=== PATIENT | female | born 1945 | race Two or more races ===

== ENCOUNTER 2016-06-29 16:41 | Inpatient (IN) | payer MEDICARE ==
[~2016-06-29] VITALS: Ht 149.9 cm; Wt 43.8 kg
--- NOTE | 2016-06-29 16:47 | ED.ADGEN ---
Past History Past Medical History: Dementia, Hypertension, Other Past Surgical History: Other Adult General Chief Complaint Chief Complaint ". I don't know why I am here.." HPI HPI Patient is a 70 year old female who presents with hx of increased confusion and mental status change. Pt. family members at bed side advised she had marked decreased mental abilities. Very confused. Pt. was taken to her Dr. Katie Mcknight. who then sent her to [facility] to be admitted to [facility]. However no pre -calls or arrangement made for acceptance. Pt. is obviously confused. Pt. did not know current season. Pt. did not know year or date or month. Pt. only recognized one family member in the room her daughter in law, but did not know her name, One friend who she is known for over 60 years she did not recognize. Pt. has hx of hypertension. 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 Review of Systems Review of Systems Pt. has no complaints, just angry that she is to be admitted for mental status change Constitutional: Denies fever or chills [] Eyes: Denies change in visual acuity, redness, or eye pain [] HENT: Denies nasal congestion or sore throat [] Respiratory: Denies cough or shortness of breath [] Cardiovascular: No additional information not addressed in HPI [] GI: Denies abdominal pain, nausea, vomiting, bloody stools or diarrhea [] : Denies dysuria or hematuria [] Musculoskeletal: Patient does have complaints of chronic low back pain and left hip pain Integument: Denies rash or skin lesions [] Neurologic: Denies headache, focal weakness or sensory changes [] Endocrine: Denies polyuria or polydipsia [] Family History Family History Noncontributory Current Medications Current Medications Current Medications Medications (Trade) Dose Ordered Sig/Justo Start Time Stop Time Status Last Admin Dose Admin Ceftriaxone Sodium/Sodium Chloride (Rocephin/Iv Sodium Chloride 0.9% 50ml) 50 ml @ 100 mls/hr 1X ONCE 06/29/16 19:45 06/29/16 20:14 DC 06/29/16 23:14 100 MLS/HR Diphenhydramine HCl (Benadryl) 50 mg 1X ONCE 06/29/16 18:00 06/29/16 18:01 DC 06/29/16 18:00 50 MG Haloperidol Lactate (Haldol) 5 mg 1X ONCE 06/29/16 18:00 06/29/16 18:01 DC 06/29/16 18:00 5 MG Haloperidol Lactate 5 mg 5 mg 1X ONCE 06/29/16 17:15 06/29/16 17:16 UNV Lactated Ringer's (Iv Lactated Ringers) 1,000 ml @ 100 mls/hr Q10H 06/29/16 19:45 06/29/16 21:27 100 MLS/HR Lorazepam (Ativan) 2 mg 1X ONCE 06/29/16 18:00 06/29/16 18:01 DC 06/29/16 18:00 1 MG Ondansetron HCl 4 mg 4 mg PRN Q4HRS PRN 06/29/16 19:45 06/30/16 19:44 Allergies Allergies Allergies Coded Allergies Type Severity Reaction Last Updated Verified No Known Drug Allergies 06/29/16 No Physical Exam Physical Exam Constitutional: in acute emotional distress,very confused. Patient somewhat and has stooled on herself and clothes. HENT: Normocephalic, atraumatic, bilateral external ears normal, oropharynx moist, no oral exudates, nose normal. Scar. Eyes: PERRLA, EOMI, conjunctiva normal, no discharge. Glasses Neck: Normal range of motion, no tenderness, supple, no stridor. [] Cardiovascular:Heart rate regular rhythm, no murmur, PMI to the left Lungs & Thorax: Bilateral breath sounds clear to auscultation [] Abdomen: Bowel sounds normal, soft, no tenderness, no masses, no pulsatile masses. Old scar. Skin: Warm, dry, no erythema, no rash. [] Back: No tenderness, no CVA tenderness. Some lumbar sacral tenderness Extremities: No tenderness, no cyanosis, no clubbing, ROM intact, no edema. Left eye and hip scar. Arthritic changes Neurologic: Alert and oriented her name only, no gross motor function deficits, no gross sensory function deficits, Psychologic: Affect agitated and angry, judgement- obvious poor insight, obvious memory deficits, Current Patient Data Vital Signs Vital Signs Date Time Temp Pulse Resp B/P Pulse Ox O2 Delivery O2 Flow Rate FiO2 06/29/16 19:00 67 18 126/86 99 Room Air 06/29/16 16:41 98.2 Lab Results Laboratory Tests Test 06/29/16 18:10 06/29/16 18:20 06/29/16 19:23 White Blood Count 13.8x10^3/uL (4.0-11.0) H Red Blood Count 4.36x10^6/uL (3.50-5.40) Hemoglobin 13.2g/dL (12.0-15.5) Hematocrit 40.0% (36.0-47.0) Mean Corpuscular Volume 92fL (79-100) Mean Corpuscular Hemoglobin 30pg (25-35) Mean Corpuscular Hemoglobin Concent 33g/dL (31-37) Red Cell Distribution Width 15.0% (11.5-14.5) H Platelet Count 389x10^3/uL (140-400) Neutrophils (%) (Auto) 62% (31-73) Lymphocytes (%) (Auto) 29% (24-48) Monocytes (%) (Auto) 8% (0-9) Eosinophils (%) (Auto) 1% (0-3) Basophils (%) (Auto) 1% (0-3) Neutrophils # (Auto) 8.6x10^3uL (1.8-7.7) H Lymphocytes # (Auto) 3.9x10^3/uL (1.0-4.8) Monocytes # (Auto) 1.1x10^3/uL (0.0-1.1) Eosinophils # (Auto) 0.1x10^3/uL (0.0-0.7) Basophils # (Auto) 0.1x10^3/uL (0.0-0.2) Sodium Level 148mmol/L (136-145) H Potassium Level 3.2mmol/L (3.5-5.1) L Chloride Level 110mmol/L (98-107) H Carbon Dioxide Level 29mmol/L (21-32) Anion Gap 9 (6-14) Blood Urea Nitrogen 10mg/dL (7-20) Creatinine 0.8mg/dL (0.6-1.0) Estimated GFR (Cockcroft-Gault) 70.7 Glucose Level 85mg/dL (70-99) Calcium Level 8.9mg/dL (8.5-10.1) Magnesium Level 2.1mg/dL (1.8-2.4) Total Bilirubin 0.3mg/dL (0.2-1.0) Direct Bilirubin 0.1mg/dL (0.0-0.2) Aspartate Amino Transferase (AST) 14U/L (15-37) L Alanine Aminotransferase (ALT) 16U/L (14-59) Alkaline Phosphatase 97U/L (46-116) Creatine Kinase 143U/L (26-192) Creatine Kinase MB (Mass) 2.1ng/mL (0.0-3.6) Creatine Kinase MB Relative Index 1.5% (0-4) Troponin I Quantitative < 0.017ng/mL (0-0.055) HI-Ocg-G-Type Natriuretic Peptide 616pg/mL (0-124) H Total Protein 7.7g/dL (6.4-8.2) Albumin 3.9g/dL (3.4-5.0) Lipase 114U/L (73-393) Urine Collection Type Unknown Urine Color Yellow Urine Clarity Cloudy Urine pH 5.5 Urine Specific [place] >=1.030 Urine Protein Trace (NEG-TRACE) Urine Glucose (UA) Negmg/dL (NEG) Urine Ketones (Stick) Tracemg/dL (NEG) Urine Blood Mod (NEG) Urine Nitrite Neg (NEG) Urine Bilirubin Neg (NEG) Urine Urobilinogen Dipstick 0.2mg/dL (0.2 mg/dL) Urine Leukocyte Esterase Neg (NEG) Urine RBC 1-2/HPF (0-2) Urine WBC 5-10/HPF (0-4) Urine Squamous Epithelial Cells Many/LPF Urine Bacteria Few/HPF (0-FEW) Urine Opiates Screen Neg (NEG) Urine Methadone Screen Neg (NEG) Urine Barbiturates Neg (NEG) Urine Phencyclidine Screen Neg (NEG) Urine Amphetamine/Methamphetamine Neg (NEG) Urine Benzodiazepines Screen Neg (NEG) Urine Cocaine Screen Neg (NEG) Urine Cannabinoids Screen Neg (NEG) Urine Ethyl Alcohol Neg (NEG) Prothrombin Time 10.5SEC (9.4-11.4) Prothrombin Time INR 1.0 (0.9-1.1) PTT 25SEC (23-33) EKG EKG My interpretation EKG shows a sinus rhythm at 73. No findings acute STEMI of contralateral changes. [] Radiology/Procedures Radiology/Procedures My interpretation of left hip and pelvis and femur show findings of left hip hardware. Degenerative joint changes. Films of lumbar spine showed degenerative joint changes. Chest x-ray shows no acute cardiopulmonary changes. Degenerative joint changes.Ring or belt clips [] My interpretation CT of head shows prior surgical clips in the MCA. Small vessel disease. Craniotomy surgical defect. Marked parenchymal loss and ischemic vessel disease. Has some motion artifact. Course & Med Decision Making Course & Med Decision Making Pertinent Labs and Imaging studies reviewed. (See chart for details) . Pt. extremely agitated and confused. All friends and relatives at bedside extremely concerned about her acute mental status change. Note from her doctor felt pt. must be admitted for further evaluation. However patient completely uncooperative. Patient obviously cannot care for herself in her present agitated confused state. Patient required sedation to complete her assessment. Discussed presentation, testing and treatment plan with Dr. Hauser will admit for further eval. and consult with Dr Sanchez to evaluate her psychiatric / emotional state. [] Final Impression Final Impression 1. History of acute mental status change 2. Suspect dementia 3. Leukocytosis 4. Hypernatremia 5. Hypokalemia 6. Possible UTI 7. History of hypertension Problems: Dragon Disclaimer Dragon Disclaimer This electronic medical record was generated, in whole or in part, using a voice recognition dictation system. CECY MONTANO MD Jun 29, 2016 16:47
[2016-06-29] MEDS ORDERED: HALOPERIDOL LACT 5 MG/ML VIAL. IVP ONE (17:15)
--- NOTE | 2016-06-29 17:44 | EKG ---
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
[2016-06-29] MEDS ORDERED: DIPHENHYDRAMINE 50 MG/ML VIAL IVP ONE (18:00)
[2016-06-29] MEDS ORDERED: LORAZEPAM 1 MG TABLET. PO ONE (18:00)
[2016-06-29] MEDS ORDERED: LORAZEPAM 2 MG/ML VIAL IV ONE (18:00)
[2016-06-29] MEDS ORDERED: HALOPERIDOL LACT 5 MG/ML VIAL. IM ONE (18:00)
[2016-06-29 18:34] LABS: BASO # 0.1 x10^3/uL (0.0-0.2); BASO % 1 % (0-3); EOS # 0.1 x10^3/uL (0.0-0.7); EOS % 1 % (0-3); HEMOGLOBIN 13.2 g/dL (12.0-15.5); LYMPH # 3.9 x10^3/uL (1.0-4.8); LYMPH % 29 % (24-48); MEAN CORPUSCULAR HEMOGLOBIN 30 pg (25-35); MEAN CORPUSCULAR HGB CONC 33 g/dL (31-37); MEAN CORPUSCULAR VOLUME 92 fL (79-100); MONO # 1.1 x10^3/uL (0.0-1.1); MONO % 8 % (0-9); NEUT # 8.6 x10^3uL (1.8-7.7); NEUT % 62 % (31-73); PLATELET COUNT 389 x10^3/uL (140-400); RED BLOOD COUNT 4.36 x10^6/uL (3.50-5.40); WHITE BLOOD COUNT 13.8 x10^3/uL (4.0-11.0)
[2016-06-29 18:45] LABS: AMPHETAMINE/METHAMPHETAMINE NEG (NEG); BARBITURATES NEG (NEG); BENZODIAZEPINES NEG (NEG); CANNABINOIDS NEG (NEG); COCAINE NEG (NEG); METHADONE NEG (NEG); OPIATES NEG (NEG); PHENCYCLIDINE NEG (NEG)
[2016-06-29 18:59] LABS: ALBUMIN 3.9 g/dL (3.4-5.0); CALCIUM 8.9 mg/dL (8.5-10.1); CREATININE 0.8 mg/dL (0.6-1.0); DIRECT BILIRUBIN 0.1 mg/dL (0.0-0.2); GFR 70.7; MAGNESIUM 2.1 mg/dL (1.8-2.4); POTASSIUM 3.2 mmol/L (3.5-5.1); TOTAL BILIRUBIN 0.3 mg/dL (0.2-1.0); TOTAL PROTEIN 7.7 g/dL (6.4-8.2)
--- NOTE | 2016-06-29 19:06 | RAD ---
PROCEDURE CT head without contrast. HISTORY Mental status change, confusion. Combative today. TECHNIQUE Noncontrast CT head was obtained. One or more of the following individualized dose reduction techniques were utilized for this exam: 1. Automated exposure control. 2. Adjustment of the mA and/or kV according to patient's size. 3. Use of iterative reconstruction technique. COMPARISON None. FINDINGS The ventricles and sulci are within normal limits for age. Moderate probable small-vessel ischemic disease is noted. Clip in the region of the left MCA results in streak artifact. There is no acute intracranial hemorrhage or extra-axial fluid collection. There is no mass effect or midline shift. There is mild motion degradation. There is no CT evidence of a large vascular distribution acute infarct. Paranasal sinuses and mastoid air cells are clear. Craniotomy defect on the left is noted. IMPRESSION 1. No acute intracranial findings. 2. Brain parenchymal volume loss and moderate probable small-vessel ischemic disease. 3. Findings compatible with prior left MCA aneurysm clipping. 4. Mild motion degradation. Electronically signed by: Danyel Gilmore MD (Jun 29, 2016 19:05:03)
[2016-06-29 19:21] LABS: BILIRUBIN,URINE NEG (NEG); CLARITY,URINE CLOUDY; COLOR,URINE YELLOW; GLUCOSE,URINE NEG (NEG)
[2016-06-29 19:22] LABS: NITRITE,URINE NEG (NEG); UROBILINOGEN,URINE 0.2 mg/dL (0.2 mg/dL)
[2016-06-29 19:25] LABS: BACTERIA,URINE FEW /HPF (0-FEW); SQUAMOUS EPITHELIAL CELL,UR MANY /LPF
[2016-06-29] MEDS ORDERED: ONDANSETRON PF 4 MG/2 ML VIAL. IV PRN (19:45)
[2016-06-29] MEDS ORDERED: CEFTRIAXONE SODIUM 1 GM in IV NORMAL SALINE 50ML 50 ML IV ONE (19:45)
[2016-06-29] MEDS ORDERED: IV RINGERS SOLUTION,LACTATED 1,000 ML IV ONE (19:45)
[2016-06-29] MEDS ORDERED: IV RINGERS SOLUTION,LACTATED 1,000 ML IV SCH (19:45)
[2016-06-29] MEDS ORDERED: LISI1TAB5 PO (20:05)
[2016-06-29 20:55] VITALS: BP 152/71
[2016-06-29 21:55] VITALS: BP 135/68
[2016-06-29 22:55] VITALS: BP 143/82
[2016-06-29 23:55] VITALS: BP 155/87
[2016-06-30] VITALS (9 sets, daily range): BP systolic 140–179; BP diastolic 72–100
[2016-06-30] MEDS: DIPHENHYDRAMINE 50 MG/ML VIAL IVP PRN ×2 (06:49→17:04)
[2016-06-30] MEDS: LORAZEPAM 2 MG/ML VIAL IV PRN ×3 (06:49→17:04)
--- NOTE | 2016-06-30 06:54 | ACF ---
Admission Criteria Forms MENTAL STATUS CHANGE Clinical Indications for Inpatient Care (Place 'X' for any and all applicable criteria): Ongoing inpatient care may be needed for ANY ONE of the following(1)(2)(3)(5)(6) : [X]I. Suspected serious etiology (eg, medical disorder, ROUTER SETTER event) of mental status change [ ]II. Danger to self or others not manageable at lower level of care [ ]III. Grave disability (eg, inability to perform self care necessary at lower level of care) [ ]IV. Agitation or inappropriate behavior interfering with care for primary condition (eg, attempting to discontinue lines or drains prematurely, unable to cooperate with respiratory care) [ ]V. Delirium [A] [D][E] as described by ANY ONE of the following(26): [ ]a) Delirium due to alcohol or sedative [F] withdrawal [ ]b) Delirium of uncertain etiology that has not responded to appropriate empiric treatment [ ]c) Delirium that prevents performance of a life-sustaining function (eg, feeding or hydrating oneself) [ ]. General contraindications and/or Inappropriate clinical situations for Observational Care in patients with Mental Status Change, when ANY ONE of the following is required: [ ]a) Prediction of prolongation of LOS based on ANY ONE of the following may be considered as a contraindication for observational care 2, 3, 4, 5, 6, 7, 8, 9, 10, 11 [ ]i) Age > 65 yrs. [ ]ii) Patient arriving by ambulance [ ]iii) Patient with high acuity [ ]iv) Patient requiring vital sign monitoring [ ]v) Patient on IV medication [ ]b) Systolic blood pressures 180mmHg 3,12 [ ]c) Patient with altered mental status including delirium and other alteration of consciousness, (3) [ ]d) Patient whose discharge disposition will be to a [facility] home or rehabilitation home should not be managed in Emergency Department Observation Unit. CMS rule requires 3 days hospital stay before such placement.3,13 [ ]e) Patient with failure to thrive due to broad array of etiologies 3,16,17 [ ]f) Inability to ambulate 3,14 Extended stay beyond goal length of stay for the primary condition may be needed until ALL of the following are present(3)(5): [ ]a) Underlying medical etiology of mental status change is absent, or has been established and adequately treated [ ]b) Danger to self or others is absent or manageable at lower level of care. [ ]c) Behavior crisis management, including physical or chemical restraints, is not required or available at lower level of car [ ]d) Substance or alcohol withdrawal is absent or manageable at lower level of care. [ ]e) Behavioral symptoms (eg, agitation, somnolence, inappropriate behavior) are absent, or are manageable at lower level of care. The original [facility] content created by [facility] has been revised. The portions of the content which have been revised are identified through the use of italic text or in bold, and [facility] has neither reviewed nor approved the modified material. All other unmodified content is copyright [facility]. Please see references footnoted in the original [facility] edition 2016 Admission Criteria Met?: Yes RADHA JOHNSON Jun 30, 2016 06:54
--- NOTE | 2016-06-30 08:37 | RAD ---
Indication mental status change. Confusion. Suspect CVA. Protocol study. A single view of the chest was obtained. No prior imaging of the chest is available. Heart size is at the upper limits of normal. There is no congestive heart failure. The lungs are clear. An acute finding in the chest is not apparent. IMPRESSION: Mild enlargement of the cardiac silhouette. No acute or focal process seen in the chest
[2016-06-30 08:38] LABS: BASO # 0.1 x10^3/uL (0.0-0.2); BASO % 1 % (0-3); EOS # 0.2 x10^3/uL (0.0-0.7); EOS % 2 % (0-3); HEMATOCRIT 37.3 % (36.0-47.0); HEMOGLOBIN 12.5 g/dL (12.0-15.5); LYMPH # 2.8 x10^3/uL (1.0-4.8); LYMPH % 26 % (24-48); MEAN CORPUSCULAR HEMOGLOBIN 31 pg (25-35); MEAN CORPUSCULAR HGB CONC 34 g/dL (31-37); MEAN CORPUSCULAR VOLUME 92 fL (79-100); MONO # 0.9 x10^3/uL (0.0-1.1); MONO % 8 % (0-9); NEUT # 6.7 x10^3uL (1.8-7.7); NEUT % 63 % (31-73); PLATELET COUNT 318 x10^3/uL (140-400); RED BLOOD COUNT 4.05 x10^6/uL (3.50-5.40); RED CELL DISTRIBUTION WIDTH 15.5 % (11.5-14.5); WHITE BLOOD COUNT 10.7 x10^3/uL (4.0-11.0)
--- NOTE | 2016-06-30 08:40 | RAD ---
Indication leg pain and pelvic pain and back pain. AP and lateral views of the lumbar spine were obtained as well as a coned view targeted to the lumbosacral junction. Vertebral height is well maintained. Significant disc space narrowing is not seen at any level. There is minimal anterolisthesis of L4 relative to L5. Some facet degenerative changes are noted in the lower lumbar spine. An acute bony abnormality is not seen. Vascular calcification is noted. IMPRESSION: No acute finding seen in the lumbar spine
--- NOTE | 2016-06-30 08:41 | RAD ---
Indication leg pain. AP views of the pelvis were obtained. Bony mineralization appears normal. Postoperative changes are noted associated with the left hip. Acute bony finding is not apparent on plain films. IMPRESSION: No acute bony finding
--- NOTE | 2016-06-30 08:43 | RAD ---
Indication leg pain. AP and lateral views of the left femur were obtained. Postoperative changes are noted compatible with ORIF of intertrochanteric hip fracture. An acute bony finding is not apparent. Chondrocalcinosis at the level of the knee is noted IMPRESSION: No acute bony finding
[2016-06-30 08:59] LABS: CALCIUM 8.3 mg/dL (8.5-10.1); CREATININE 0.7 mg/dL (0.6-1.0); GFR 82.5; POTASSIUM 3.4 mmol/L (3.5-5.1); TOTAL BILIRUBIN 0.5 mg/dL (0.2-1.0); TOTAL PROTEIN 6.1 g/dL (6.4-8.2)
[2016-06-30] MEDS ORDERED: PNEUMOC CONJ VACC 23-VALENT 0.5 ML VIAL. VAX IM ONE (09:00)
[2016-06-30] MEDS ORDERED: FLU VACC QUAD 2016-17 (36MOS+)/PF 0.5 ML SYRINGE. VAX IM ONE (09:00)
[2016-06-30] MEDS: MVI, ADULT NO.4 WITH VIT K 10 ML, FOLIC ACID 1 MG, THIAMINE 100 MG, POTASSIUM CHLORIDE ... IV SCH ×5 (09:05)
[2016-06-30] MEDS: NICOTINE 21MG PATCH. TD SCH (11:49)
[2016-06-30 12:10] LABS: RPR REFLEX Non Reactive (Non Reactive)
--- NOTE | 2016-06-30 13:31 | HP ---
ADMIT DATE: 06/30/2016 REASON FOR ADMISSION: This is a 70-year-old female, who has not seen a doctor in about 5 years. She went to a doctor Ayaka Mcknight and dora because of concerns by the family that of increased confusion and mental status change. Members at the bedside in Emergency Room advised, but she had decreased mental abilities. However, the patient does not have DPOA. All arrangements were made with the [facility] for admission. So, admission was not possible. In the interim, the patient was found to be hypernatremic, hypokalemic and hydrated and so was admitted to the floor. PAST MEDICAL HISTORY: Dementia, hypertension. PAST SURGICAL HISTORY: Actually, she has had some type of cancer in her leg, but herself cannot give me much of a history at all. 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 MEDICATIONS: Apparently none. ALLERGIES: None. The patient has been sedated x 2 due to combat activity and wanting to leave. SOCIAL HISTORY: The patient smokes at least a pack per day according to the family. The patient herself does not know how much she smokes. REVIEW OF SYSTEMS: The patient could not give me her complaints except that she wants to go home. OBJECTIVE: VITAL SIGNS: Blood pressure 168/91, pulse 69, respirations 20, pulse ox is 97% on room air. The patient is recently just awakened. Height 59 inches, weight 98.5 pounds. GENERAL: The patient just awakened and is somewhat sluggish. HEENT: Her hearing is normal. Her eyes were bloodshot. Her nose was patent. Her throat was clear. NECK: Supple. LUNGS: Clear. CARDIOVASCULAR: Regular rhythm and rate. ABDOMEN: Soft, nontender. EXTREMITIES: She has changes of vascular disease from chronic smoking. Toes are purple, but warm. Cranial nerves intact. There are no gross tremors. MENTAL STATUS: The patient was confused and could not really answer any questions. LABORATORY DATA: Sodium is 148, potassium 3.4, albumin initially was 3.9, so it is delusionally low. Her drug screen was negative. Urinalysis: Specific gravity greater than 1.030 with 5 to 10 white cells, but many squamous epithelial cells. White blood cell count was elevated at 13.8. ASSESSMENT: 1. Acute mental status per family. 2. Suspect neurocognitive impairment. 3. Leukocytosis with urinary tract infection, but contaminated urine specimen. 4. Hypernatremia secondary to dehydration. 5. Hypokalemia. 6. Hypertension. PLAN: We will address her medical conditions and she would probably benefit from a stay up on the [facility]. She will have to have a DPOA, which family is arranging at this time. We will go ahead and at least initially start to treat her for the UTI. DEBBIE HOPSON DO DR: JADA/shanon JOB#: [id number] / [id number]
[2016-06-30] MEDS ORDERED: HALOPERIDOL LACT 5 MG/ML VIAL. IVP PRN (18:15)
--- NOTE | 2016-06-30 20:50 | PDOC ---
Exam Yaya Demential Exam: Yaya Note: Please also refer to the separate dictated note~for this date of service dictated separately.~Patient seen individually. Discussed the patient with Nursing staff reviewed the chart.~Reviewed interim history and current functioning. Reviewed vital signs,~Labs/ Radiology~and current medications noted below. Continue current treatment with the changes noted in the dictated addendum note Assessment: Vital Signs: Vital Signs Date Time Temp Pulse Resp B/P Pulse Ox O2 Delivery O2 Flow Rate FiO2 06/30/16 19:39 Room Air 06/30/16 19:19 97.9 60 18 179/82 100 I&O Intake and Output 06/30/16 07:00 Intake Total 0 ml Balance 0 ml Intake Oral 0 ml Labs: Laboratory Tests Test 06/29/16 21:30 06/30/16 08:15 Nasal Screen MRSA (PCR) Negative (Negative) White Blood Count 10.7x10^3/uL (4.0-11.0) Red Blood Count 4.05x10^6/uL (3.50-5.40) Hemoglobin 12.5g/dL (12.0-15.5) Hematocrit 37.3% (36.0-47.0) Mean Corpuscular Volume 92fL (79-100) Mean Corpuscular Hemoglobin 31pg (25-35) Mean Corpuscular Hemoglobin Concent 34g/dL (31-37) Red Cell Distribution Width 15.5% (11.5-14.5) H Platelet Count 318x10^3/uL (140-400) Neutrophils (%) (Auto) 63% (31-73) Lymphocytes (%) (Auto) 26% (24-48) Monocytes (%) (Auto) 8% (0-9) Eosinophils (%) (Auto) 2% (0-3) Basophils (%) (Auto) 1% (0-3) Neutrophils # (Auto) 6.7x10^3uL (1.8-7.7) Lymphocytes # (Auto) 2.8x10^3/uL (1.0-4.8) Monocytes # (Auto) 0.9x10^3/uL (0.0-1.1) Eosinophils # (Auto) 0.2x10^3/uL (0.0-0.7) Basophils # (Auto) 0.1x10^3/uL (0.0-0.2) Sodium Level 148mmol/L (136-145) H Potassium Level 3.4mmol/L (3.5-5.1) L Chloride Level 112mmol/L (98-107) H Carbon Dioxide Level 29mmol/L (21-32) Anion Gap 7 (6-14) Blood Urea Nitrogen 8mg/dL (7-20) Creatinine 0.7mg/dL (0.6-1.0) Estimated GFR (Cockcroft-Gault) 82.5 BUN/Creatinine Ratio 11 (6-20) Glucose Level 74mg/dL (70-99) Calcium Level 8.3mg/dL (8.5-10.1) L Total Bilirubin 0.5mg/dL (0.2-1.0) # Aspartate Amino Transferase (AST) 12U/L (15-37) L Alanine Aminotransferase (ALT) 11U/L (14-59) L Alkaline Phosphatase 76U/L (46-116) Total Protein 6.1g/dL (6.4-8.2) L Albumin 3.0g/dL (3.4-5.0) L Albumin/Globulin Ratio 1.0 (1.0-1.7) Current Medications: Meds: Current Medications Diphenhydramine HCl (Benadryl) 50 mg 1X ONCE IVP Last administered on 18:00; Start 06/29/16 at 18:00; Stop 06/29/16 at 18:01; Status DC Lorazepam (Ativan) 2 mg 1X ONCE PO ; Start 06/29/16 at 18:00; Stop 06/29/16 at 18:01; Status DC Lorazepam (Ativan) 2 mg 1X ONCE IV Last administered on 06/29/16 18:00; Start 06/29/16 at 18:00; Stop 06/29/16 at 18:01; Status DC Haloperidol Lactate (Haldol) 5 mg 1X ONCE IM Last administered on 06/29/16 18 :00; Start 06/29/16 at 18:00; Stop 06/29/16 at 18:01; Status DC Haloperidol Lactate 5 mg 5 mg 1X ONCE IVP ; Start 06/29/16 at 17:15; Stop 06/29 at 17:16; Status UNV Lactated Ringer's 1,000 ml @ 1,000 mls/hr 1X ONCE IV Last administered on 19:45; Start 06/29/16 at 19:45; Stop 06/29/16 at 20:44; Status DC Ceftriaxone Sodium/Sodium Chloride (Rocephin/Iv Sodium Chloride 0.9% 50ml) 50 ml @ 100 mls/hr 1X ONCE IV Last administered on 06/29/16 23:14; Start at 19:45; Stop 06/29/16 at 20:14; Status DC Ondansetron HCl 4 mg 4 mg PRN Q4HRS PRN IV NAUSEA/VOMITING; Start 06/29/16 at 19:45; Stop 06/30/16 at 19:44; Status DC Lactated Ringer's 1,000 ml @ 100 mls/hr Q10H IV Last administered on 21:27; Start 06/29/16 at 19:45; Stop 06/30/16 at 11:52; Status DC Multivitamins/ Minerals/Folic Acid/Thiamine HCl/ Potassium Chloride/Dextrose/ Sodium Chloride (Infuvite Adult/ Iv D5% - 1/2 NS) 1,031.2 ml @ 100.009 mls/hr DAILY IV Last administered on 06/30/16 09:05; Start 06/30/16 at 09:00 Diphenhydramine HCl (Benadryl) 25 mg PRN Q6HRS PRN IVP ITCHING Last administered on 06/30/16 17:04; Start 06/29/16 at 20:45 Influenza Virus Vaccine Quadrival (Fluarix Quad [id number] Syringe) 0.5 ml ONCE ONCE VAX IM ; Start 06/30/16 at 09:00; Stop 06/30/16 at 09:01; Status DC Pneumococcal Polyvalent Vaccine (Pneumovax 23) 0.5 ml ONCE ONCE VAX IM ; Start 06/30/16 at 09:00; Stop 06/30/16 at 09:01; Status DC Lorazepam (Ativan) 0.5 mg PRN Q4HRS PRN IV ANXIETY / AGITATION Last administered on 06/30/16 17:04; Start 06/30/16 at 06:45 Nicotine (Nicoderm Cq 21mg) 1 patch DAILY TD Last administered on 06/30/16t 11: 49; Start 06/30/16 at 12:00 Haloperidol Lactate (Haldol) 5 mg PRN Q6HRS PRN IVP AGITATION; Start 06/30/16 at 18:15; Stop 06/30/16 at 18:17; Status DC Haloperidol Lactate (Haldol) 5 mg PRN Q6HRS PRN IM AGITATION; Start 06/30/16 at 18:17 Active Scripts Active Reported Lisinopril-Hctz 20-12.5 Mg Tab (Lisinopril/Hydrochlorothiazide) 1 Each Tablet 1 Tab PO DAILY CAITLYN BHATT MD Jun 30, 2016 20:50
[2016-07-01] MEDS: DIPHENHYDRAMINE 50 MG/ML VIAL IVP PRN ×2 (01:24→07:30)
--- NOTE | 2016-07-01 02:01 | CONS ---
DATE OF CONSULTATION: 06/30/2016 PSYCHIATRIC CONSULTATION IDENTIFYING DATA: The patient is a 70-year-old female seen in ICU bed 1, [facility], for a psychiatric consult. The patient requested by Dr. Yady Hauser on account of the patient's increased confusion, change in mental status, psychotic symptoms, hallucinations, agitation. The patient has had sundowning, was crawling out of the windows this afternoon, drinking water out of the toilet bowl. She does have a UTI, has been dehydrated, confused, has not seen her primary care physician for the past several years, was brought to the Emergency Room at [facility] for possible admission to the [facility], but did not have a DPOA and was then admitted to the medical/surgical floor for medical stabilization of her dehydration, hypernatremia, hypokalemia, UTI. I have been asked to consult from a psychiatric standpoint while she is in the ICU. I met with the patient's son at length together history. The patient is sedated, having received PRNs after her marked psychotic symptoms, agitation as noted above, current and past records, nursing information reviewed, discussed with nursing staff while she was in the ER as well. HISTORY OF PRESENT ILLNESS: Reportedly, the patient has had change in the mental status over the past several weeks and months. At times, she recognizes family members, but confuses grandchildren. She has been living at home with her boyfriend who is and it is unclear who has been cooking and she has been essentially eating some cereal. Reportedly, another son lives in the home, but has had little to do with the patient and her boyfriend. No clear history of bipolar disorder, suicidal or homicidal ideation. PAST PSYCHIATRIC HISTORY: As above with progressive memory deficits. PAST MEDICAL HISTORY: Hypertension. 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 DRUG ALLERGIES: Negative. CURRENT PSYCHOTROPICS: She is on Haldol and Ativan p.r.n. FAMILY HISTORY: Noncontributory. CODE STATUS: She is a full code. SOCIAL HISTORY: As noted above. She is a smoker, but no alcohol or drug abuse history noted. MENTAL STATUS EXAMINATION: The patient is lying in bed. She has essentially been oriented to herself. At times recognizes her son, not very verbal as she was sedated, having received p.r.n. after trying to crawl out of the window and drinking from the toilet bowl. Insight, judgment, recent and remote memory, attention, concentration, fund of knowledge poor, consistent with her diagnosis from all the information available. No active suicidal or homicidal ideation. PHYSICAL EXAMINATION: VITAL SIGNS: Temperature 97.9, pulse 60, BP 179/82. IMPRESSION: Major neurocognitive disorder, Alzheimer, vascular with delirium, depression, delusion, behavioral disturbance; anxiety disorder, unspecified; impulse control disorder, unspecified. Rest diagnosis as above. CT head has been done, report is awaited. PLAN: From a psychiatric standpoint, continue her current PRNs. If needed, we may add Zyprexa p.r.n. as well. We will reassess whether she needs to be transferred to the [facility] when she is medically stable. Dr. Hauser, thank you for the opportunity to participate in your patient's care. We will follow with you. CAITLYN BHATT MD DR: ALICIA/shanon JOB#: [id number] / [id number]
[2016-07-01 02:08] VITALS: BP 144/107
[2016-07-01 03:47] VITALS: BP 146/84
[2016-07-01] MEDS: LORAZEPAM 2 MG/ML VIAL IV PRN ×2 (04:40→08:40)
[2016-07-01] MEDS: HALOPERIDOL LACT 5 MG/ML VIAL. IM PRN ×2 (05:06→10:32)
[2016-07-01] MEDS ORDERED: OLANZAPINE ZYDIS 5 MG TAB.RAPDIS PO ONE (05:30)
[2016-07-01] MEDS ORDERED: HYDROXYZINE HCL 25 MG TABLET PO PRN (07:15)
[2016-07-01 07:42] VITALS: BP 152/97
[2016-07-01 08:40] LABS: HEMATOCRIT 38.1 % (36.0-47.0); HEMOGLOBIN 12.6 g/dL (12.0-15.5); RED BLOOD COUNT 4.17 x10^6/uL (3.50-5.40); RED CELL DISTRIBUTION WIDTH 15.4 % (11.5-14.5); WHITE BLOOD COUNT 13.7 x10^3/uL (4.0-11.0)
[2016-07-01 09:04] LABS: ALBUMIN 3.5 g/dL (3.4-5.0); ALBUMIN/GLOBULIN RATIO 1.2 (1.0-1.7); CALCIUM 9.1 mg/dL (8.5-10.1); CREATININE 0.8 mg/dL (0.6-1.0); GFR 70.7; MAGNESIUM 2.1 mg/dL (1.8-2.4); POTASSIUM 3.9 mmol/L (3.5-5.1); TOTAL BILIRUBIN 0.4 mg/dL (0.2-1.0); TOTAL PROTEIN 6.5 g/dL (6.4-8.2)
[2016-07-01] MEDS: NICOTINE 21MG PATCH. TD SCH (09:09)
[2016-07-01] MEDS ORDERED: NICO1PAT21 TP (10:01)
[2016-07-01] MEDS ORDERED: LORA0.5T PO (10:01)
[2016-07-01] MEDS ORDERED: LISI-334 PO (10:01)
[2016-07-01] MEDS ORDERED: DIPH25CA58 IV (10:01)
[2016-07-01] MEDS ORDERED: DIPH25CA58 PO (10:01)
[2016-07-01] MEDS ORDERED: LORA0.5T IVP (10:01)
[2016-07-01] MEDS ORDERED: HALO5TAB IM (10:01)
[2016-07-01] MEDS ORDERED: HYDR25TA PO (10:01)
[2016-07-01] MEDS: MVI, ADULT NO.4 WITH VIT K 10 ML, FOLIC ACID 1 MG, THIAMINE 100 MG, POTASSIUM CHLORIDE ... IV SCH ×5 (10:34)
[2016-07-01] MEDS ORDERED: LISINOPRIL 10 MG TABLET PO SCH (10:45)
[2016-07-01 12:04] VITALS: BP 140/79
[2016-07-01 13:21] VITALS: BP 144/88
--- NOTE | 2016-07-01 22:16 | DS ---
DATE OF DISCHARGE: 07/01/2016 DISCHARGE DIAGNOSES: 1. Acute mental status change per family dementia with behavior disturbance. 2. Severe neurocognitive impairment. 3. Leukocytosis with urinary tract infection, but the culture is pending, may be contaminated. 4. Hypernatremia has slightly improved with fluids. 5. Hypokalemia, which has resolved. 6. Hypertension. 7. Under malnourished. 8. Tobacco use disorder. HOSPITAL COURSE: This is a 70-year-old female who was brought to the Emergency Room by instruction of her primary care physician for admission to [facility], however, no known inquiries were made to [facility] and no consent sign and the patient did not have DPOA. She was admitted and found to have probably UTI, but there were several squamous epithelial cells and the culture is pending. She had periods of rage and completely out of control, violence, kicking her son, and unable to control. She was seen by Dr. Sanchez. Several medications were tried with some success. She did require chemical restraint and protocol goes along with that. Because of her being a danger to herself and others, it is deemed that this is necessary for her to be expeditiously transferred up to the [facility] today. PHYSICAL EXAMINATION: VITAL SIGNS: On day of discharge, her blood pressure is 144/88, temperature 97.5, pulse 73, respirations 18, pulse ox is 97% on room air. The patient is currently sedated due to multiple medications administered. PLAN: To transfer up to [facility] as soon as a bed is available. DEBBIE HOPSON DO DR: JADA/shanon JOB#: [id number] / [id number]
== END 2016-07-01 14:20 | DRG 690 ==
LOC: ER 16:41 → ICU 19:47
PROVIDERS: ADMIT Family Medicine; ATTEND Family Medicine
DX: N39.0 Urinary tract infection, site not specified (principal); Z68.1 Body mass index [BMI] 19.9 or less, adult; E87.0 Hyperosmolality and hypernatremia; F01.51 Vascular dementia, unspecified severity, with behavioral disturbance; E86.0 Dehydration; E87.6 Hypokalemia; F17.210 Nicotine dependence, cigarettes, uncomplicated; F22 Delusional disorders; F32.9 Major depressive disorder, single episode, unspecified; F41.9 Anxiety disorder, unspecified; F63.9 Impulse disorder, unspecified; G30.9 Alzheimer's disease, unspecified; I10 Essential (primary) hypertension
CPT/HCPCS: 36415; 70450; 71010; 72100; 72170; 73552; 80048; 80053; 80076; 81001; 82553; 83690; 83735; 83880; 84443; 84484; 85027; 85610; 85730; 86592; 86593; 87086; 87641; 90686; 90732; 93005; 96372; 96374; 96375; G0481; J0696; J1200; J1630; J2060; J3480; J7120; 99285-25

== ENCOUNTER 2016-07-01 14:20 | Inpatient (IN) | payer MEDICARE ==
[~2016-07-01] VITALS: Ht 149.9 cm; Wt 48.2 kg
[~2016-07-01 14:20] MED LIST: DIPH25CA58 IV; DIPH25CA58 PO; HALO5TAB IM; HYDR25TA PO; LISI-334 PO; LISI1TAB5 PO; LORA0.5T IVP; LORA0.5T PO; NICO1PAT21 TP
[2016-07-01] MEDS ORDERED: LORazepam 0.5 MG TABLET PO PRN (15:15)
[2016-07-01] MEDS ORDERED: LORazepam 2 MG/ML VIAL IV PRN (15:15)
[2016-07-01] MEDS ORDERED: HALOPERIDOL LACT 5 MG/ML VIAL. IM PRN (15:15)
[2016-07-01] MEDS ORDERED: diphenhydrAMINE 50 MG/ML VIAL IVP PRN (15:15)
[2016-07-01 15:26] VITALS: BP 144/88
[2016-07-01 16:15] VITALS: BP 144/88
--- NOTE | 2016-07-01 16:24 | NUR ---
Pt arrived on unit via wheelchair accompanied by ICU staff. Pt calm at the moment. Pt arrived in hospital gown and did not have any belongings. Pt currently resting in dayroom. Will continue to monitor.
--- NOTE | 2016-07-01 17:39 | NUR ---
Patient has been provided with Practical Counseling for tobacco cessation. It included a face to face interaction and the following was discussed: Recognizing danger situations, Developing coping skills,Basic cessation information. Will follow for discharge needs and discharge planning.
[2016-07-01] MEDS ORDERED: diphenhydrAMINE HCL 25 MG CAPSULE PO PRN (18:00)
[2016-07-01] MEDS ORDERED: diphenhydrAMINE HCL 25 MG CAPSULE PO SCH (18:00)
--- NOTE | 2016-07-01 20:56 | NUR ---
Nursing Note: Pt exhibiting agitated behaviors that appear to be increasing. Gave Benadryl 25 mg as ordered.
--- NOTE | 2016-07-01 21:11 | PDOC ---
Exam Yaya Demential Exam: Yaya Note: Please also refer to the separate dictated note~for this date of service dictated separately.~Patient seen individually. Discussed the patient with Nursing staff reviewed the chart.~Reviewed interim history and current functioning. Reviewed vital signs,~Labs/ Radiology~and current medications noted below. Continue current treatment with the changes noted in the dictated addendum note Assessment: Vital Signs: Vital Signs Date Time Temp Pulse Resp B/P Pulse Ox O2 Delivery O2 Flow Rate FiO2 07/01/16 16:15 97.5 73 18 144/88 97 07/01/16 15:26 Room Air Current Medications: Meds: Current Medications Diphenhydramine HCl (Benadryl) 25 mg Q6HRS PO ; Start 07/01/16 at 18:00; Stop at 18:00; Status DC Hydroxyzine HCl (Atarax) 25 mg PRN Q6HRS PRN PO ITCHING; Start 07/01/16 at 15: 15 Lisinopril (Prinivil) 20 mg DAILY PO ; Start 07/02/16 at 09:00 Lorazepam (Ativan) 0.5 mg PRN Q4HRS PRN PO ANXIETY / AGITATION; Start 07/01/16 at 15:15 Nicotine (Nicoderm Cq 21mg) 1 patch DAILY TD ; Start 07/02/16 at 09:00 Lorazepam (Ativan) 0.5 mg PRN Q4HRS PRN IV ANXIETY / AGITATION; Start 07/01/16 at 15:15; Stop 07/01/16 at 19:14; Status DC Diphenhydramine HCl (Benadryl) 25 mg PRN Q6HRS PRN IVP ITCHING; Start 07/01/16 at 15:15; Stop 07/01/16 at 19:14; Status DC Haloperidol Lactate (Haldol) 5 mg PRN Q6HRS PRN IM AGITATION; Start 07/01/16 at 15:15; Stop 07/01/16 at 19:14; Status DC Diphenhydramine HCl (Benadryl) 25 mg PRN Q6HRS PRN PO ITCHING Last administered on 07/01/16t 20:56; Start 07/01/16 at 18:00 Active Scripts Active Lisinopril 20 Mg Tablet 1 Tab PO DAILY NICODERM CQ 21mg (Nicotine) 1 Each Patch.td24 1 Patch TP DAILY Lorazepam 0.5 Mg Tablet 1 Tab PO Q4HRS PRN Hydroxyzine Hcl 25 Mg Tablet 1 Tab PO Q6HRS PRN Benadryl (Diphenhydramine Hcl) 25 Mg Capsule 1 Cap PO Q6HRS Diagnosis: Problems: (1) Encounter for psychological evaluation (2) Anxiety disorder (3) Impulse control disorder (4) Dementia, vascular, with delusions (5) Dementia, vascular, with depression (6) Dementia in Alzheimer's disease with delusions (7) Dementia in Alzheimer's disease with depression CAITLYN BHATT MD Jul 01, 2016 21:10
--- NOTE | 2016-07-01 21:30 | NUR ---
Nursing Note: Staff walked pt around the unit to attempt to calm and redirect pt. Pt continues to be fixated on going home and having her purse. Will continue to monitor.
[2016-07-01] MEDS: hydrOXYzine HCL 25 MG TABLET PO PRN (22:14)
--- NOTE | 2016-07-01 22:25 | NUR ---
Nursing Note: Pt became increasingly agitated and began to disturb her roommate, attempting to take her roommate's stuffed animal thinking that it was her purse. When attempting to redirect, pt yelled and swung at staff. PRN given and pt secured in [facility] for [facility].
--- NOTE | 2016-07-01 23:05 | NUR ---
Behavior Intervention Response and Plan: BIRP Note: Behavior: Assumed Care of patient, patient located in Day Room at shift change. Patient exhibited the following behavior Restless, Disorganized, Irritable. Brief assessment on rounds of vital signs, medication needs, lab studies, and pain. Treatment plan problems Dementia with BD, Altered Thought Process and Fall Risk. Intervention: Patient assessed and the following interventions initiated safety checks 15 Minute Checks Cognitive Assessment , Head to toe Assessment , Medications. Response: After interactions and interventions patient responded in the following manner, Disorganized , Resistive ,Drowsy. Continue to assess behaviors and condition will continue to monitor throughout the shift as needed. Plan: Continue to monitor Master Treatment Plan for patient's progress toward short term goals of Decreased Agitation, Medication Compliance, termite helper goals to return to previous living setting vs placement. Continue to assess patient for changes in above assessment. Monitor for medication needs, pain, and safety concerns. Hourly rounding performed to ensure safe environment.
--- NOTE | 2016-07-02 02:40 | NUR ---
Nursing Note: Pt experienced a fall at 0215 in quiet room 2 just off [facility]. Pt tripped over a rafaela on the floor. Pt has no pain upon palpation, no crepitous upon palpation, full range of motion of all joints, no breaks in the skin. Dr. Calderon was paged. Nursing supervisor title was notified. Vitals were taken and will be monitored regularly. Pressure alarm was placed under pt., red socks were placed on pt., and fall risk assessment score was adjusted. Will continue to monitor.
[2016-07-02 02:44] VITALS: BP 149/96
[2016-07-02 03:10] VITALS: BP 149/88
[2016-07-02 03:42] VITALS: BP 139/79
[2016-07-02 04:41] VITALS: BP 149/85
[2016-07-02 06:17] VITALS: BP 162/88
[2016-07-02] MEDS: NICOTINE 21MG PATCH. TD SCH (07:54)
[2016-07-02] MEDS: LISINOPRIL 20 MG TABLET PO SCH (07:54)
[2016-07-02] MEDS: hydrOXYzine HCL 25 MG TABLET PO PRN (09:41)
--- NOTE | 2016-07-02 10:03 | NUR ---
Patient extremely restless and agitated. She will not sit or rest at all, she is secluded in the [facility] for safety. Patient has unsteady gait , but refuses to have assistance with ambulation and continues to yell for staff to open the door and continues to bang on the window and doors. Patient not redirectable and continues to ask for her purse and to go home. Patient has been told multiple times this AM her son will be here today at 1200, but she is forgetful. She has been extremely combative with cares i.e. scratching, hitting, biting, spitting. We were unable to obtain labs this AM due to her combative behaviors. PRN atarax 25mg given for agitation, will continue to monitor.
--- NOTE | 2016-07-02 10:13 | PDOC1 ---
History of Present Illness Reason for Visit: Altered mental status History of Present Illness Pt presented to the ER on 06/30 due to mental status changes. Pt was initially found to be hypernatremic, hypokalemic, and dehydrated. She was treated on the med/surg floor w/ IVF and abx, and then transferred to the [facility] unit for evaluation of dementia. Pt is a poor historian and all info in this note is gleaned from the chart and nursing staff. Chief Complaint: PSYCH EVAL Allergies: Coded Allergies: No Known Drug Allergies (Unverified , 06/29/16) Past Medical History Cardiac: HTN TROUBLE LOCATER: Dementia Past Surgical History: Other (Cerebral bleed; rhabdomyosarcoma left thigh) Family History: No pertinent hx Past Social History Smoke: 1 pack per day Alcohol: none Drugs: None Lives: with Family Domestic Violence: Neg Review of Systems Review Of Systems ROS unreliable/unobtainable due to pt's mental status. Allergies: Coded Allergies: No Known Drug Allergies (Unverified , 06/29/16) Medications Current Medications Diphenhydramine HCl (Benadryl) 25 mg Q6HRS PO ; Start 07/01/16 at 18:00; Stop at 18:00; Status DC Hydroxyzine HCl (Atarax) 25 mg PRN Q6HRS PRN PO ITCHING Last administered on 09:41; Start 07/01/16 at 15:15 Lisinopril (Prinivil) 20 mg DAILY PO Last administered on 07/02/16 07:54; Start 07/02/16 at 09:00 Lorazepam (Ativan) 0.5 mg PRN Q4HRS PRN PO ANXIETY / AGITATION; Start 07/01/16 at 15:15 Nicotine (Nicoderm Cq 21mg) 1 patch DAILY TD Last administered on 07/02/16 07: 54; Start 07/02/16 at 09:00 Lorazepam (Ativan) 0.5 mg PRN Q4HRS PRN IV ANXIETY / AGITATION; Start 07/01/16 at 15:15; Stop 07/01/16 at 19:14; Status DC Diphenhydramine HCl (Benadryl) 25 mg PRN Q6HRS PRN IVP ITCHING; Start 07/01/16 at 15:15; Stop 07/01/16 at 19:14; Status DC Haloperidol Lactate (Haldol) 5 mg PRN Q6HRS PRN IM AGITATION; Start 07/01/16 at 15:15; Stop 07/01/16 at 19:14; Status DC Diphenhydramine HCl (Benadryl) 25 mg PRN Q6HRS PRN PO ITCHING Last administered on 07/01/16t 20:56; Start 07/01/16 at 18:00 Active Scripts Active Lisinopril 20 Mg Tablet 1 Tab PO DAILY NICODERM CQ 21mg (Nicotine) 1 Each Patch.td24 1 Patch TP DAILY Lorazepam 0.5 Mg Tablet 1 Tab PO Q4HRS PRN Hydroxyzine Hcl 25 Mg Tablet 1 Tab PO Q6HRS PRN Benadryl (Diphenhydramine Hcl) 25 Mg Capsule 1 Cap PO Q6HRS Exam Vital Signs Vital Signs Date Time Temp Pulse Resp B/P Pulse Ox O2 Delivery O2 Flow Rate FiO2 07/02/16 07:54 67 162/88 07/02/16 06:17 20 98 07/02/16 04:41 Room Air 07/02/16 02:44 97.6 General Appearance: Alert, Cooperative, Other (Anxious, pacing, flight of ideas ) HEENT: Atraumatic, PERRLA, EOMI, Mucous membr. moist/pink, Other (Neck supple, full ROM, no JVD, no LAD) Respiratory: Clear to auscultation, Normal air movement Heart: Regular rate, Normal S1, Normal S2, No murmurs Abdominal: Normal bowel sounds, Soft, No tenderness, No hepatospenomegaly, No masses Extremities: No edema, No tenderness/swelling Skin: No rashes Neuro: Normal gait, Normal speech, Strength at 5/5 X4 ext, Normal tone, Sensation intact, Cranial nerves 3-12 NL Psych/Mental Status: Other (Pt anxious, paranoid, exit-seeking, not aware of recent events or why she is here.) Assessment/Plan Assessment/Plan 1. Dementia w/ BD: Per Dr. Sanchez. 2. Tobacco dependence: Pt has nicotine patch. 3. Possible UTI: Culture pending. Hold abx for now. 4. Pain: Pt denies pain, says it "went away." Xrays were negative. 5. DVT proph: Pt is low risk, ambulates well. No anticoagulation. COURSE Allergies Coded Allergies Type Severity Reaction Last Updated Verified No Known Drug Allergies 06/29/16 No Current Medications Medications (Trade) Dose Ordered Sig/Justo Route PRN Reason Start Time Stop Time Status Last Admin Dose Admin Diphenhydramine HCl (Benadryl) 25 mg Q6HRS PO 07/01/16 18:00 07/01/16 18:00 DC Hydroxyzine HCl (Atarax) 25 mg PRN Q6HRS PRN PO ITCHING 07/01/16 15:15 07/02/16 09:41 Lisinopril (Prinivil) 20 mg DAILY PO 07/02/16 09:00 07/02/16 07:54 Lorazepam (Ativan) 0.5 mg PRN Q4HRS PRN PO ANXIETY / AGITATION 07/01/16 15:15 Nicotine (Nicoderm Cq 21mg) 1 patch DAILY TD 07/02/16 09:00 07/02/16 07:54 Lorazepam (Ativan) 0.5 mg PRN Q4HRS PRN IV ANXIETY / AGITATION 07/01/16 15:15 07/01/16 19:14 DC Diphenhydramine HCl (Benadryl) 25 mg PRN Q6HRS PRN IVP ITCHING 07/01/16 15:15 07/01/16 19:14 DC Haloperidol Lactate (Haldol) 5 mg PRN Q6HRS PRN IM AGITATION 07/01/16 15:15 07/01/16 19:14 DC Diphenhydramine HCl (Benadryl) 25 mg PRN Q6HRS PRN PO ITCHING 07/01/16 18:00 07/01/16 20:56 I & O 07/02/16 00:00 Intake Total 240 ml Balance 240 ml Vital Signs Date Time Temp Pulse Resp B/P Pulse Ox O2 Delivery O2 Flow Rate FiO2 07/02/16 07:54 67 162/88 07/02/16 06:17 20 98 07/02/16 04:41 Room Air 07/02/16 02:[address] head without contrast. HISTORY Mental status change, confusion. Combative today. TECHNIQUE Noncontrast CT head was obtained. One or more of the following individualized dose reduction techniques were utilized for this exam: 1. Automated exposure control. 2. Adjustment of the mA and/or kV according to patient's size. 3. Use of iterative reconstruction technique. COMPARISON None. FINDINGS The ventricles and sulci are within normal limits for age. Moderate probable small-vessel ischemic disease is noted. Clip in the region of the left MCA results in streak artifact. There is no acute intracranial hemorrhage or extra-axial fluid collection. There is no mass effect or midline shift. There is mild motion degradation. There is no CT evidence of a large vascular distribution acute infarct. Paranasal sinuses and mastoid air cells are clear. Craniotomy defect on the left is noted. IMPRESSION 1. No acute intracranial findings. 2. Brain parenchymal volume loss and moderate probable small-vessel ischemic disease. 3. Findings compatible with prior left MCA aneurysm clipping. 4. Mild motion degradation. Indication mental status change. Confusion. Suspect CVA. Protocol study. A single view of the chest was obtained. No prior imaging of the chest is available. Heart size is at the upper limits of normal. There is no congestive heart failure. The lungs are clear. An acute finding in the chest is not apparent. IMPRESSION: Mild enlargement of the cardiac silhouette. No acute or focal process seen in the chest Indication leg pain. AP and lateral views of the left femur were obtained. Postoperative changes are noted compatible with ORIF of intertrochanteric hip fracture. An acute bony finding is not apparent. Chondrocalcinosis at the level of the knee is noted IMPRESSION: No acute bony finding Indication leg pain and pelvic pain and back pain. AP and lateral views of the lumbar spine were obtained as well as a coned view targeted to the lumbosacral junction. Vertebral height is well maintained. Significant disc space narrowing is not seen at any level. There is minimal anterolisthesis of L4 relative to L5. Some facet degenerative changes are noted in the lower lumbar spine. An acute bony abnormality is not seen. Vascular calcification is noted. IMPRESSION: No acute finding seen in the lumbar spine Indication leg pain. AP views of the pelvis were obtained. Bony mineralization appears normal. Postoperative changes are noted associated with the left hip. Acute bony finding is not apparent on plain films. IMPRESSION: No acute bony finding GINNY PENG MD Jul 02, 2016 10:12
--- NOTE | 2016-07-02 12:48 | NUR ---
SW met with son for a short time, he states he is waiting for an collections attorney to call him regarding guardianship paperwork. Pt unable answer SW questions. SW and pt son will talk following day. SW provided him with contact information.
--- NOTE | 2016-07-02 13:06 | HP ---
ADMIT DATE: 07/01/2016 PSYCHIATRIC ADMISSION HISTORY/EVALUATION This is a late entry 07/01/2016. IDENTIFYING DATA: The patient is a 70-year-old female referred to us from the ICU at [facility] by Dr. Hauser. The patient was admitted to the ICU after she presented to the Emergency Room with increased confusion, agitation, delusions, aggression, dangerous behaviors. While in the ICU, she has been extremely delirious, throwing things, trying to crawl out of the window, actively hallucinating, pulled out her IV, restless, combative, refusing foods, refusing meds and cares. The patient has been unmanageable. I had followed her there from a psychiatric standpoint. Dr. Hauser had called me a couple of times on her and we had made further changes in her psychotropics in an attempt to control her agitation, psychosis. I had also met with the patient's son, gathered detailed history of progressive dementia, confusion, delusions. She had failed all interventions in the ICU. Behaviors were deemed dangerous and she is referred for inpatient psychiatric stabilization. Reportedly, guardianship proceedings have been initiated since initially she did not have a DPOA. CHIEF COMPLAINT: "I'm okay." The patient is oblivious the way she is, confused, anxious, depressed, labile in her mood. HISTORY OF PRESENT ILLNESS: The patient has history of dementia, early Alzheimer, vascular type. She has been residing at home with her boyfriend. Her younger son reportedly comes in and out of the home after work, but has had little contact with her. The older son with whom I met to gather history indicates she has had progressive confusion, memory deficits, some sleep and appetite changes, but all of this came to her head a few days back. No clear history of bipolar disorder, though she has had periods of elation, racing thoughts, never been diagnosed previously. No active suicidal or homicidal ideation, but behaviors have been dangerous as noted. PAST PSYCHIATRIC HISTORY: As above. 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 DRUG ALLERGIES: Negative. DIET: Regular. CURRENT PSYCHOTROPICS ADMISSION: Medical administration record was reviewed. FAMILY HISTORY: Noncontributory. SOCIAL HISTORY: No alcohol or drug abuse history. She lives at home with her boyfriend as noted and son is in and out of the home after work, but little contact with her. No alcohol or drug abuse history. MENTAL STATUS EXAMINATION: The patient was seen individually. She is oriented to herself, restless, anxious, paranoid, delusional. Insight, judgment, recent and remote memory, attention, concentration, fund of knowledge poor, consistent with her diagnoses. Vital signs noted in my initial note. 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 Rest of diagnoses as above. PLAN: Admit to geropsychiatry unit at [facility]. I will see the patient daily individually from a psychiatric standpoint. Request medical followup with Dr. Hauser/Dr. Groves. Continue current psychotropics, observe baseline, adjust as clinically indicated. I will see the patient daily individually. She may need placement out of home. At discharge, we will have to reassess depending on how she does during this hospitalization. MAN Quinten BHATT MD DR: ALICIA/shanon JOB#: [id number] / [id number]
[2016-07-02 13:34] LABS: BASO # 0.2 x10^3/uL (0.0-0.2); BASO % 1 % (0-3); EOS % 0 % (0-3); HEMATOCRIT 41.7 % (36.0-47.0); HEMOGLOBIN 13.4 g/dL (12.0-15.5); LYMPH % 14 % (24-48); MEAN CORPUSCULAR HEMOGLOBIN 30 pg (25-35); MEAN CORPUSCULAR HGB CONC 32 g/dL (31-37); MEAN CORPUSCULAR VOLUME 93 fL (79-100); MONO # 0.7 x10^3/uL (0.0-1.1); MONO % 5 % (0-9); NEUT # 11.3 x10^3uL (1.8-7.7); NEUT % 79 % (31-73); PLATELET COUNT 370 x10^3/uL (140-400); RED BLOOD COUNT 4.48 x10^6/uL (3.50-5.40); RED CELL DISTRIBUTION WIDTH 15.7 % (11.5-14.5); WHITE BLOOD COUNT 14.2 x10^3/uL (4.0-11.0)
--- NOTE | 2016-07-02 13:47 | NUR ---
Patient's WBC elevated at 14.2. She is afebrile, no cough observed, Dr. Calderon aware. Lab is to repeat urine culture, will assess skin for s/s of infection and continue to monitor.
[2016-07-02 13:51] LABS: ALBUMIN 3.9 g/dL (3.4-5.0); ALBUMIN/GLOBULIN RATIO 1.1 (1.0-1.7); CALCIUM 9.1 mg/dL (8.5-10.1); GFR 54.7; POTASSIUM 4.1 mmol/L (3.5-5.1); TOTAL BILIRUBIN 0.3 mg/dL (0.2-1.0); TOTAL PROTEIN 7.4 g/dL (6.4-8.2)
[2016-07-02 16:09] VITALS: BP 143/95
--- NOTE | 2016-07-02 16:46 | NUR ---
Four rings removed from patient's fingers and given to patient's son, no issues at this time, will continue to monitor.
--- NOTE | 2016-07-02 20:57 | PDOC ---
Exam Yaya Demential Exam: Yaya Note: Please also refer to the separate dictated note~for this date of service dictated separately.~Patient seen individually. Discussed the patient with Nursing staff reviewed the chart.~Reviewed interim history and current functioning. Reviewed vital signs,~Labs/ Radiology~and current medications noted below. Continue current treatment with the changes noted in the dictated addendum note Assessment: Vital Signs: Vital Signs Date Time Temp Pulse Resp B/P Pulse Ox O2 Delivery O2 Flow Rate FiO2 07/02/16 16:09 97.9 78 18 143/95 98 07/02/16 04:41 Room Air I&O Intake and Output 07/02/16 07:00 Intake Total 240 ml Balance 240 ml Intake Oral 240 ml Labs: Laboratory Tests Test 07/02/16 13:25 White Blood Count 14.2x10^3/uL (4.0-11.0) H Red Blood Count 4.48x10^6/uL (3.50-5.40) Hemoglobin 13.4g/dL (12.0-15.5) Hematocrit 41.7% (36.0-47.0) Mean Corpuscular Volume 93fL (79-100) Mean Corpuscular Hemoglobin 30pg (25-35) Mean Corpuscular Hemoglobin Concent 32g/dL (31-37) Red Cell Distribution Width 15.7% (11.5-14.5) H Platelet Count 370x10^3/uL (140-400) Neutrophils (%) (Auto) 79% (31-73) H Lymphocytes (%) (Auto) 14% (24-48) L Monocytes (%) (Auto) 5% (0-9) Eosinophils (%) (Auto) 0% (0-3) Basophils (%) (Auto) 1% (0-3) Neutrophils # (Auto) 11.3x10^3uL (1.8-7.7) H Lymphocytes # (Auto) 2.0x10^3/uL (1.0-4.8) Monocytes # (Auto) 0.7x10^3/uL (0.0-1.1) Eosinophils # (Auto) 0.0x10^3/uL (0.0-0.7) Basophils # (Auto) 0.2x10^3/uL (0.0-0.2) Sodium Level 147mmol/L (136-145) H Potassium Level 4.1mmol/L (3.5-5.1) Chloride Level 106mmol/L (98-107) Carbon Dioxide Level 29mmol/L (21-32) Anion Gap 12 (6-14) Blood Urea Nitrogen 17mg/dL (7-20) Creatinine 1.0mg/dL (0.6-1.0) Estimated GFR (Cockcroft-Gault) 54.7 BUN/Creatinine Ratio 17 (6-20) Glucose Level 131mg/dL (70-99) H Calcium Level 9.1mg/dL (8.5-10.1) Total Bilirubin 0.3mg/dL (0.2-1.0) Aspartate Amino Transferase (AST) 15U/L (15-37) Alanine Aminotransferase (ALT) 15U/L (14-59) Alkaline Phosphatase 96U/L (46-116) Total Protein 7.4g/dL (6.4-8.2) Albumin 3.9g/dL (3.4-5.0) Albumin/Globulin Ratio 1.1 (1.0-1.7) Current Medications: Meds: Current Medications Diphenhydramine HCl (Benadryl) 25 mg Q6HRS PO ; Start 07/01/16 at 18:00; Stop at 18:00; Status DC Hydroxyzine HCl (Atarax) 25 mg PRN Q6HRS PRN PO ITCHING Last administered on 09:41; Start 07/01/16 at 15:15 Lisinopril (Prinivil) 20 mg DAILY PO Last administered on 07/02/16 07:54; Start 07/02/16 at 09:00 Lorazepam (Ativan) 0.5 mg PRN Q4HRS PRN PO ANXIETY / AGITATION; Start 07/01/16 at 15:15 Nicotine (Nicoderm Cq 21mg) 1 patch DAILY TD Last administered on 07/02/16 07: 54; Start 07/02/16 at 09:00 Lorazepam (Ativan) 0.5 mg PRN Q4HRS PRN IV ANXIETY / AGITATION; Start 07/01/16 at 15:15; Stop 07/01/16 at 19:14; Status DC Diphenhydramine HCl (Benadryl) 25 mg PRN Q6HRS PRN IVP ITCHING; Start 07/01/16 at 15:15; Stop 07/01/16 at 19:14; Status DC Haloperidol Lactate (Haldol) 5 mg PRN Q6HRS PRN IM AGITATION; Start 07/01/16 at 15:15; Stop 07/01/16 at 19:14; Status DC Diphenhydramine HCl (Benadryl) 25 mg PRN Q6HRS PRN PO ITCHING Last administered on 07/01/16t 20:56; Start 07/01/16 at 18:00 Active Scripts Active Lisinopril 20 Mg Tablet 1 Tab PO DAILY NICODERM CQ 21mg (Nicotine) 1 Each Patch.td24 1 Patch TP DAILY Lorazepam 0.5 Mg Tablet 1 Tab PO Q4HRS PRN Hydroxyzine Hcl 25 Mg Tablet 1 Tab PO Q6HRS PRN Benadryl (Diphenhydramine Hcl) 25 Mg Capsule 1 Cap PO Q6HRS Diagnosis: Problems: (1) Encounter for psychological evaluation (2) Anxiety disorder (3) Impulse control disorder (4) Dementia, vascular, with delusions (5) Dementia, vascular, with depression (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
--- NOTE | 2016-07-02 21:09 | NUR ---
Nursing Note; Pt very restless and delusional, believes someone has stollen her purse, Nurse attempted to redirect pt, informing her that her purse is locked up, Pt requesting purse stating she needs it so she can go home, Nurse attempted to educate pt that she is currently in the hospital, Pt stated "No I haven't been in the hospital" Pt noted with continued agitation PRN Ativan administered per PRN order at this time.
[2016-07-02] MEDS: HYDROcodone/APAP 5/325MG 1 TAB TABLET PO PRN (21:49)
--- NOTE | 2016-07-02 21:52 | NUR ---
Nursing Note: Call received from family, Nurse discussed pt's behaviors and administration of PRN Ativan, Family states they feel the Ativan will work initially then make things worse, Family reports pt use to take [place] 5/325 1 tab QHS and 1/2 tab during the day after her Laminectomy in 2006 then continued after her fall in 2009 that resulted in a Hip Fx, and pt stopped taking the Pain medications after a friend informed her that she could get addicted to it, Family states pt has increased agitation, irritability and aggression when she is in Pain. Family also reports that pt use to take Remeron 15mg QHS and Celexa 10mg daily but stopped taking them r/t cost and requested to have this discussed with Dr. Sanchez. call placed to Dr. Calderon, informed of pain medication concerns per family request, order received for [place] 5/325 1 tab PRN BID, Call placed to Dr. Sanchez, informed of family's report medication that pt recently stopped taking r/t cost, Order received to DC Ativan, Start Zydis 2.5mg PRN Q2H with max dose of 15mg/24 hours, start Celexa 10mg daily and Remeron 15 mg QHS per family request. All orders processed. Nurse asked pt if she was in pain, pt reports she is having pain and requests to have pain medications, PRN [place] administered per PRN order at this time
--- NOTE | 2016-07-02 22:46 | NUR ---
Nursing Note; Pt assisted to bed at 2215 r/t drowsiness, Pt remained awake in bed, at 2345 Pt up ambulating, staff in to assist, pt into the bathroom, staff attempted to assist pt to change r/t incontinence, Pt screaming, hitting, kicking biting and demanding her purse so she could go home. Multiple staff in to assist and attempt to redirect, Pt behavior and aggression continues to escalate, pt assisted to hallway and doors shut r/t severe agitation and aggression, PRN Zydis administered with assist r/t pt's continued escalation of aggression at this time.
--- NOTE | 2016-07-03 04:51 | NUR ---
Behavior Intervention Response and Plan: BIRP Note: Behavior: Assumed Care of patient, patient located in Hallway at shift change. Patient exhibited the following behavior Exit Seeking, Restless, Irritable. Brief assessment on rounds of vital signs, medication needs, lab studies, and pain. Treatment plan problems Dementia with BD, Altered Thought Process and Fall Risk. Intervention: Patient assessed and the following interventions initiated safety checks 15 Minute Checks Cognitive Assessment , Head to toe Assessment , Medications. Response: After interactions and interventions patient responded in the following manner, Exit Seeking , Restless ,Combative. Continue to assess behaviors and condition will continue to monitor throughout the shift as needed. 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 Continue to assess patient for changes in above assessment. Monitor for medication needs, pain, and safety concerns. Hourly rounding performed to ensure safe environment.
[2016-07-03 06:28] VITALS: BP 156/93
--- NOTE | 2016-07-03 07:29 | NUR ---
SW reviewed pts insurance upon admit. Facesheet, intake, and C-Snap state Pts insurance is Medicare.
[2016-07-03] MEDS: LISINOPRIL 20 MG TABLET PO SCH (09:07)
[2016-07-03] MEDS: NICOTINE 21MG PATCH. TD SCH (09:07)
[2016-07-03] MEDS: CITALOPRAM 10 MG TABLET. PO SCH (09:07)
--- NOTE | 2016-07-03 09:50 | NUR ---
ACTIVITY THERAPY ASSESSMENT Completed based on observations and interview on this day at this time in the day room. Pt. was agreeable and able to recall favorite leisure activities. Pt. talked extensively about struggles with her [id number], Nadine, and at one point called her a "bitch" because she invites Pt. to her daughter's (Pt's granddaughter) birthday parties after the constitution party is over and expects Pt. to clean/dishes. Pt. will participate with groups but does not socialize with others. Pt. enjoys watching TV, cleaning house and doing dishes. She like to road trip around [place] to visit her friends. Initial goal: Pt. will participate in all groups she is invited to.
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
--- NOTE | 2016-07-03 13:00 | NUR ---
Behavior Intervention Response and Plan: BIRP Note: Behavior: Assumed Care of patient, patient located in Hallway at shift change. Patient exhibited the following behavior Calm, Disorganized, Compliant. Brief assessment on rounds of vital signs, medication needs, lab studies, and pain. Treatment plan problems . Intervention: Patient assessed and the following interventions initiated safety checks 15 Minute Checks Call amaya in reach , Head to toe Assessment , Medications. Response: After interactions and interventions patient responded in the following manner, Calm , Compliant ,Cooperative. Continue to assess behaviors and condition will continue to monitor throughout the shift as needed. Plan: Continue to monitor Master Treatment Plan for patient's progress toward short term goals of Decreased Agitation, Decreased Aggression, care home goals to return to previous living setting vs placement. Continue to assess patient for changes in above assessment. Monitor for medication needs, pain, and safety concerns. Hourly rounding performed to ensure safe environment.
[2016-07-03 16:02] VITALS: BP 148/85
[2016-07-03] MEDS: MIRTAZAPINE 15 MG TABLET PO SCH (19:55)
[2016-07-03] MEDS: risperiDONE 0.25 MG TABLET. PO SCH (19:55)
--- NOTE | 2016-07-03 20:56 | PDOC ---
Exam Yaya Demential Exam: Yaya Note: Please also refer to the separate dictated note~for this date of service dictated separately.~Patient seen individually. Discussed the patient with Nursing staff reviewed the chart.~Reviewed interim history and current functioning. Reviewed vital signs,~Labs/ Radiology~and current medications noted below. Continue current treatment with the changes noted in the dictated addendum note Assessment: Vital Signs: Vital Signs Date Time Temp Pulse Resp B/P Pulse Ox O2 Delivery O2 Flow Rate FiO2 07/03/16 16:02 97.3 81 18 148/85 96 07/02/16 22:49 Room Air I&O Intake and Output 07/03/16 07:00 Intake Total 600 ml Balance 600 ml Intake Oral 600 ml # Voids 1 Current Medications: Meds: Current Medications Diphenhydramine HCl (Benadryl) 25 mg Q6HRS PO ; Start 07/01/16 at 18:00; Stop at 18:00; Status DC Hydroxyzine HCl (Atarax) 25 mg PRN Q6HRS PRN PO ITCHING Last administered on 09:41; Start 07/01/16 at 15:15 Lisinopril (Prinivil) 20 mg DAILY PO Last administered on 07/03/16 09:07; Start 07/02/16 at 09:00 Lorazepam (Ativan) 0.5 mg PRN Q4HRS PRN PO ANXIETY / AGITATION Last administered on 07/02/16 21:07; Start 07/01/16 at 15:15; Stop 07/02/16 at 21:44 ; Status DC Nicotine (Nicoderm Cq 21mg) 1 patch DAILY TD Last administered on 07/03/16 09: 07; Start 07/02/16 at 09:00 Lorazepam (Ativan) 0.5 mg PRN Q4HRS PRN IV ANXIETY / AGITATION; Start 07/01/16 at 15:15; Stop 07/01/16 at 19:14; Status DC Diphenhydramine HCl (Benadryl) 25 mg PRN Q6HRS PRN IVP ITCHING; Start 07/01/16 at 15:15; Stop 07/01/16 at 19:14; Status DC Haloperidol Lactate (Haldol) 5 mg PRN Q6HRS PRN IM AGITATION; Start 07/01/16 at 15:15; Stop 07/01/16 at 19:14; Status DC Diphenhydramine HCl (Benadryl) 25 mg PRN Q6HRS PRN PO ITCHING Last administered on 07/01/16 20:56; Start 07/01/16 at 18:00 Acetaminophen/ Hydrocodone Bitart (Lortab 5/325) 1 tab PRN BID PRN PO PAIN Last administered on 07/02/16 21:49; Start 07/02/16 at 21:45 Olanzapine (Zyprexa Zydis) 2.5 mg PRN Q2HR PRN PO PSYCHOSIS Last administered on 07/02/16 22:50; Start 07/02/16 at 21:45 Mirtazapine (Remeron) 15 mg QHS PO Last administered on 07/03/16 19:55; Start 07/03/16 at 21:00 Citalopram Hydrobromide (Celexa) 10 mg DAILY PO Last administered on 07/03/16 09:07; Start 07/03/16 at 09:00 Risperidone (Risperdal) 0.25 mg BID PO Last administered on 07/03/16 19:55; Start 07/03/16 at 21:00 Active Scripts Active Lisinopril 20 Mg Tablet 1 Tab PO DAILY NICODERM CQ 21mg (Nicotine) 1 Each Patch.td24 1 Patch TP DAILY Lorazepam 0.5 Mg Tablet 1 Tab PO Q4HRS PRN Hydroxyzine Hcl 25 Mg Tablet 1 Tab PO Q6HRS PRN Benadryl (Diphenhydramine Hcl) 25 Mg Capsule 1 Cap PO Q6HRS Diagnosis: Problems: (1) Encounter for psychological evaluation (2) Anxiety disorder (3) Impulse control disorder (4) Dementia, vascular, with delusions (5) Dementia, vascular, with depression (6) Dementia in Alzheimer's disease with delusions (7) Dementia in Alzheimer's disease with depression CAITLYN BHATT MD Jul 03, 2016 20:56
[2016-07-03 21:10] LABS: HEMOGLOBIN A1C 4.9 % (4.8-5.6)
--- NOTE | 2016-07-03 22:45 | NUR ---
Behavior Intervention Response and Plan: BIRP Note: Behavior: Assumed Care of patient, patient located in Hallway at shift change. Patient exhibited the following behavior Exit Seeking, Restless, Irritable. Brief assessment on rounds of vital signs, medication needs, lab studies, and pain. Treatment plan problems Dementia with BD, Altered Thought Process and Fall Risk. Intervention: Patient assessed and the following interventions initiated safety checks 15 Minute Checks Cognitive Assessment , Head to toe Assessment , Medications. Response: After interactions and interventions patient responded in the following manner, Exit Seeking , Restless ,Combative. Continue to assess behaviors and condition will continue to monitor throughout the shift as needed. 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 Continue to assess patient for changes in above assessment. Monitor for medication needs, pain, and safety concerns. Hourly rounding performed to ensure safe environment.
--- NOTE | 2016-07-04 01:33 | PN ---
DATE: 07/02/2016 This is a late entry for 07/02/2016, covers elements not covered in my initial note. SUBJECTIVE: The patient has been restless, anxious, exit seeking at times. She was up until about 2 a.m. WBC 13.7, sodium 147, we will defer to Dr. Hauser/Dr Groves/Dr. Calderon for followup. She remains confused, anxious, restless, somewhat delusional. I spent fair amount of time with her individually. She was somewhat hyperverbal, forgetful, confused, able to remember certain things about her family. REVIEW OF SYSTEMS: No CV, , pulmonary, eye system symptoms on review. Reliability poor. MENTAL STATUS EXAM: Oriented to herself. Insight, judgment, recent memory is impaired. Language function intact. Attention span short. Mood and affect remains labile. The patient was quite labile, psychotic, unmanageable on the unit, had to be placed in a secure hallway for her own safety. LABORATORY DATA: Reviewed. IMPRESSION: Major neurocognitive disorder, probably Alzheimer's, vascular with delirium, delusion, depression, behavioral disturbance; anxiety disorder, unspecified; impulse control disorder, unspecified. PLAN: Continue Benadryl and Atarax p.r.n. We will go ahead and add Risperdal 0.25 mg twice a day for psychotic symptoms. Adjust further as clinically indicated. Check to make sure CT head was unremarkable. MAN Quinten BHATT MD DR: ALICIA/shanon JOB#: [id number] / [id number]
[2016-07-04 06:13] VITALS: BP 129/76
[2016-07-04] MEDS: CITALOPRAM 10 MG TABLET. PO SCH (08:27)
[2016-07-04] MEDS: risperiDONE 0.25 MG TABLET. PO SCH ×2 (08:28→19:42)
[2016-07-04] MEDS: NICOTINE 21MG PATCH. TD SCH (08:28)
[2016-07-04] MEDS: LISINOPRIL 20 MG TABLET PO SCH (08:28)
--- NOTE | 2016-07-04 10:29 | NUR ---
Behavior Intervention Response and Plan: BIRP Note: Behavior: Assumed Care of patient, patient located in Hallway at shift change. Patient exhibited the following behavior calm, cooperative, compliant, and confused. Brief assessment on rounds of vital signs, medication needs, lab studies, and pain. Treatment plan problems Dementia with BD, Altered Thought Process and Fall Risk. Intervention: Patient assessed and the following interventions initiated safety checks 15 Minute Checks Cognitive Assessment , Head to toe Assessment , Medications. Response: After interactions and interventions patient responded in the following manner, confused and compliant. Continue to assess behaviors and condition will continue to monitor throughout the shift as needed. Plan: Continue to monitor Master Treatment Plan for patient's progress toward short term goals of Decreased Agitation, Decreased Aggression, intermediate goals to return to previous living setting vs placement. Continue to assess patient for changes in above assessment. Monitor for medication needs, pain, and safety concerns. Hourly rounding performed to ensure safe environment.
[2016-07-04] MEDS: HYDROcodone/APAP 5/325MG 1 TAB TABLET PO PRN (14:37)
--- NOTE | 2016-07-04 14:41 | NUR ---
Pt wandering asking to go home, asking for the elevator, looking for her son. unable to be redirected by staff. Pt also stating she has lower back pain. PRN hydrocodone and zyprexa zydis given.
[2016-07-04 16:01] VITALS: BP 125/71
[2016-07-04] MEDS ORDERED: MAGNESIUM HYDROXIDE 2,400 MG/30 ML ORAL.SUSP. PO PRN (18:15)
[2016-07-04] MEDS: MIRTAZAPINE 15 MG TABLET PO SCH (19:42)
[2016-07-04] MEDS: DOCUSATE CALCIUM 240 MG CAPSULE PO SCH (19:53)
--- NOTE | 2016-07-04 21:47 | NUR ---
Behavior Intervention Response and Plan: BIRP Note: Behavior: Assumed Care of patient, patient located in Hallway at shift change. Patient exhibited the following behavior Exit Seeking, Restless, Irritable. Brief assessment on rounds of vital signs, medication needs, lab studies, and pain. Treatment plan problems Dementia with BD, Altered Thought Process and Fall Risk. Intervention: Patient assessed and the following interventions initiated safety checks 15 Minute Checks Cognitive Assessment , Head to toe Assessment , Medications. Response: After interactions and interventions patient responded in the following manner, Exit Seeking , Restless ,Combative. Continue to assess behaviors and condition will continue to monitor throughout the shift as needed. 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 Continue to assess patient for changes in above assessment. Monitor for medication needs, pain, and safety concerns. Hourly rounding performed to ensure safe environment.
--- NOTE | 2016-07-04 22:36 | PDOC ---
Exam Yaya Demential Exam: Yaya Note: Please also refer to the separate dictated note~for this date of service dictated separately.~Patient seen individually. Discussed the patient with Nursing staff reviewed the chart.~Reviewed interim history and current functioning. Reviewed vital signs,~Labs/ Radiology~and current medications noted below. Continue current treatment with the changes noted in the dictated addendum note Assessment: Vital Signs: Vital Signs Date Time Temp Pulse Resp B/P Pulse Ox O2 Delivery O2 Flow Rate FiO2 07/04/16 16:51 18 07/04/16 16:01 98.1 76 125/71 97 07/02/16 22:49 Room Air I&O Intake and Output 07/04/16 07:00 Intake Total 600 ml Balance 600 ml Intake Oral 600 ml Current Medications: Meds: Current Medications Diphenhydramine HCl (Benadryl) 25 mg Q6HRS PO ; Start 07/01/16 at 18:00; Stop at 18:00; Status DC Hydroxyzine HCl (Atarax) 25 mg PRN Q6HRS PRN PO ITCHING Last administered on 09:41; Start 07/01/16 at 15:15 Lisinopril (Prinivil) 20 mg DAILY PO Last administered on 07/04/16 08:28; Start 07/02/16 at 09:00 Lorazepam (Ativan) 0.5 mg PRN Q4HRS PRN PO ANXIETY / AGITATION Last administered on 07/02/16 21:07; Start 07/01/16 at 15:15; Stop 07/02/16 at 21:44 ; Status DC Nicotine (Nicoderm Cq 21mg) 1 patch DAILY TD Last administered on 07/04/16 08: 28; Start 07/02/16 at 09:00 Lorazepam (Ativan) 0.5 mg PRN Q4HRS PRN IV ANXIETY / AGITATION; Start 07/01/16 at 15:15; Stop 07/01/16 at 19:14; Status DC Diphenhydramine HCl (Benadryl) 25 mg PRN Q6HRS PRN IVP ITCHING; Start 07/01/16 at 15:15; Stop 07/01/16 at 19:14; Status DC Haloperidol Lactate (Haldol) 5 mg PRN Q6HRS PRN IM AGITATION; Start 07/01/16 at 15:15; Stop 07/01/16 at 19:14; Status DC Diphenhydramine HCl (Benadryl) 25 mg PRN Q6HRS PRN PO ITCHING Last administered on 07/01/16 20:56; Start 07/01/16 at 18:00 Acetaminophen/ Hydrocodone Bitart (Lortab 5/325) 1 tab PRN BID PRN PO PAIN Last administered on 07/04/16 14:37; Start 07/02/16 at 21:45 Olanzapine (Zyprexa Zydis) 2.5 mg PRN Q2HR PRN PO PSYCHOSIS Last administered on 07/04/16 14:37; Start 07/02/16 at 21:45 Mirtazapine (Remeron) 15 mg QHS PO Last administered on 07/04/16 19:42; Start 07/03/16 at 21:00 Citalopram Hydrobromide (Celexa) 10 mg DAILY PO Last administered on 07/04/16 08:27; Start 07/03/16 at 09:00 Risperidone (Risperdal) 0.25 mg BID PO Last administered on 07/04/16 19:42; Start 07/03/16 at 21:00 Docusate Calcium (Surfak) 240 mg DAILY PO Last administered on 07/04/16 19:53 ; Start 07/04/16 at 21:00 Magnesium Hydroxide (Milk Of Magnesia) 2,400 mg PRN QHS PRN PO CONSTIPATION; Start 07/04/16 at 18:15 Active Scripts Active Lisinopril 20 Mg Tablet 1 Tab PO DAILY NICODERM CQ 21mg (Nicotine) 1 Each Patch.td24 1 Patch TP DAILY Lorazepam 0.5 Mg Tablet 1 Tab PO Q4HRS PRN Hydroxyzine Hcl 25 Mg Tablet 1 Tab PO Q6HRS PRN Benadryl (Diphenhydramine Hcl) 25 Mg Capsule 1 Cap PO Q6HRS Diagnosis: Problems: (1) Encounter for psychological evaluation (2) Anxiety disorder (3) Impulse control disorder (4) Dementia, vascular, with delusions (5) Dementia, vascular, with depression (6) Dementia in Alzheimer's disease with delusions (7) Dementia in Alzheimer's disease with depression CAITLYN BHATT MD 25, 2017 22:36
--- NOTE | 2016-07-05 00:40 | NUR ---
Nursing Note: Pt awakened with New admission arrived, Pt very agitated and belligerent demanding everyone "get the fuck out of my house" multiple staff attempted to redirect, pt continues to escalate, verbally aggressive and becoming physically combative, Pt moved to the quiet room r/t escalation of aggression, pt continues to have increased aggression, in the michelle yelling and demanding every get out, PRN Zydis administered at this time per PRN orders.
[2016-07-05] MEDS: CITALOPRAM 10 MG TABLET. PO SCH (09:35)
[2016-07-05 09:40] VITALS: BP 175/96
[2016-07-05] MEDS: DOCUSATE CALCIUM 240 MG CAPSULE PO SCH (09:41)
[2016-07-05] MEDS: risperiDONE 0.25 MG TABLET. PO SCH ×2 (09:41→19:22)
[2016-07-05] MEDS: LISINOPRIL 20 MG TABLET PO SCH (09:41)
[2016-07-05] MEDS: NICOTINE 21MG PATCH. TD SCH (09:41)
[2016-07-05] MEDS: HYDROcodone/APAP 5/325MG 1 TAB TABLET PO PRN (09:44)
--- NOTE | 2016-07-05 11:08 | NUR ---
Behavior Intervention Response and Plan: BIRP Note: Behavior: Assumed Care of patient, patient located in Hallway at shift change. Patient exhibited the following behavior calm, cooperative, compliant, and confused. Brief assessment on rounds of vital signs, medication needs, lab studies, and pain. Treatment plan problems Dementia with BD, Altered Thought Process and Fall Risk. Intervention: Patient assessed and the following interventions initiated safety checks 15 Minute Checks Cognitive Assessment , Head to toe Assessment , Medications. Response: After interactions and interventions patient responded in the following manner, confused, compliant, and compliant. Continue to assess behaviors and condition will continue to monitor throughout the shift as needed. 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 Continue to assess patient for changes in above assessment. Monitor for medication needs, pain, and safety concerns. Hourly rounding performed to ensure safe environment.
--- NOTE | 2016-07-05 12:04 | PN ---
DATE: 07/03/2016 PSYCHIATRIC PROGRESS NOTE This is a late entry 07/03/2016, covers elements not covered in my initial note. SUBJECTIVE: The patient does better on 07/03/2016. Per nursing report, tearful, wandering, exit seeking, and confused. No PRNs needed. CT head was done on the reflective of atrophy, no acute changes. REVIEW OF SYSTEMS: No CV, , pulmonary, eye, ENT system symptoms on review. She admits to her confusion "lot." MENTAL STATUS EXAM: Insight, judgment, recent and remote memory, attention, concentration, fund of knowledge poor, consistent with her diagnosis mentioned in my initial note. PLAN: Maintain current psychotropics mentioned in my initial note, adjust as clinically indicated. MAN Quinten BHATT MD DR: ALICIA/shanon JOB#: [id number] / [id number]
--- NOTE | 2016-07-05 12:04 | PN ---
DATE: 07/04/2016 PSYCHIATRIC PROGRESS NOTE This is a late entry for 07/04/2016. SUBJECTIVE: Per nursing report, the patient has complained of some back. Had some hydrocodone. Remains anxious, restless, somewhat paranoid, very confused, received Zyprexa p.r.n., wandering. Family felt the patient is severely constipated. We will start 240 mg a day, milk of mag p.r.n. REVIEW OF SYSTEMS: No CV, , pulmonary, eye, ENT system symptoms on review. MENTAL STATUS EXAM: Oriented to herself. Insight, judgment, recent and remote memory, attention, concentration, fund of knowledge poor, consistent with her diagnosis as mentioned in my initial note. PLAN: Maintain current psychotropics. Adjust further as clinically indicated. CAITLYN BHATT MD DR: ALICIA/shanon JOB#: [id number] / [id number]
[2016-07-05] MEDS: hydrOXYzine HCL 25 MG TABLET PO PRN (14:13)
--- NOTE | 2016-07-05 14:16 | NUR ---
Pt is agitated, tearful, anxious, demanding to leave and asking staff to take her home. Staff was unable to redirect pt, PRN atarax given.
[2016-07-05 15:54] VITALS: BP 143/51
[2016-07-05 18:03] LABS: BASO # 0.1 x10^3/uL (0.0-0.2); BASO % 1 % (0-3); EOS # 0.3 x10^3/uL (0.0-0.7); EOS % 3 % (0-3); HEMATOCRIT 41.8 % (36.0-47.0); HEMOGLOBIN 13.7 g/dL (12.0-15.5); LYMPH # 3.9 x10^3/uL (1.0-4.8); LYMPH % 31 % (24-48); MEAN CORPUSCULAR HEMOGLOBIN 30 pg (25-35); MEAN CORPUSCULAR HGB CONC 33 g/dL (31-37); MEAN CORPUSCULAR VOLUME 93 fL (79-100); MONO # 1.4 x10^3/uL (0.0-1.1); MONO % 11 % (0-9); NEUT % 55 % (31-73); PLATELET COUNT 332 x10^3/uL (140-400); RED BLOOD COUNT 4.49 x10^6/uL (3.50-5.40); RED CELL DISTRIBUTION WIDTH 15.6 % (11.5-14.5); WHITE BLOOD COUNT 12.7 x10^3/uL (4.0-11.0)
[2016-07-05] MEDS: MIRTAZAPINE 15 MG TABLET PO SCH (19:22)
--- NOTE | 2016-07-05 19:25 | NUR ---
Nursing Note: Pt very agitated this evening, took phone away from another patient and began talking to other patient's family member, yelling about needing someone to come pick her up. Multiple attempts made to redirect, pt returned phone to the original patient then began screaming in the michelle, when staff attempted to redirect pt became physically combative, hitting kicking and attempting to bite staff, PRN Zydis administered at this time per PRN order.
[2016-07-05] MEDS: traZODone 50 MG TABLET. PO SCH (20:54)
--- NOTE | 2016-07-05 20:59 | PDOC ---
Exam Yaya Demential Exam: Yaya Note: Please also refer to the separate dictated note~for this date of service dictated separately.~Patient seen individually. Discussed the patient with Nursing staff reviewed the chart.~Reviewed interim history and current functioning. Reviewed vital signs,~Labs/ Radiology~and current medications noted below. Continue current treatment with the changes noted in the dictated addendum note Assessment: Vital Signs: Vital Signs Date Time Temp Pulse Resp B/P Pulse Ox O2 Delivery O2 Flow Rate FiO2 07/05/16 15:54 98.0 77 20 143/51 94 07/02/16 22:49 Room Air I&O Intake and Output 07/05/16 07:00 Intake Total 960 ml Balance 960 ml Intake Oral 960 ml Labs: Laboratory Tests Test 07/05/16 17:54 White Blood Count 12.7x10^3/uL (4.0-11.0) H Red Blood Count 4.49x10^6/uL (3.50-5.40) Hemoglobin 13.7g/dL (12.0-15.5) Hematocrit 41.8% (36.0-47.0) Mean Corpuscular Volume 93fL (79-100) Mean Corpuscular Hemoglobin 30pg (25-35) Mean Corpuscular Hemoglobin Concent 33g/dL (31-37) Red Cell Distribution Width 15.6% (11.5-14.5) H Platelet Count 332x10^3/uL (140-400) Neutrophils (%) (Auto) 55% (31-73) Lymphocytes (%) (Auto) 31% (24-48) Monocytes (%) (Auto) 11% (0-9) H Eosinophils (%) (Auto) 3% (0-3) Basophils (%) (Auto) 1% (0-3) Neutrophils # (Auto) 7.0x10^3uL (1.8-7.7) Lymphocytes # (Auto) 3.9x10^3/uL (1.0-4.8) Monocytes # (Auto) 1.4x10^3/uL (0.0-1.1) H Eosinophils # (Auto) 0.3x10^3/uL (0.0-0.7) Basophils # (Auto) 0.1x10^3/uL (0.0-0.2) Current Medications: Meds: Current Medications Diphenhydramine HCl (Benadryl) 25 mg Q6HRS PO ; Start 07/01/16 at 18:00; Stop at 18:00; Status DC Hydroxyzine HCl (Atarax) 25 mg PRN Q6HRS PRN PO ITCHING Last administered on 14:13; Start 07/01/16 at 15:15 Lisinopril (Prinivil) 20 mg DAILY PO Last administered on 07/05/16 09:41; Start 07/02/16 at 09:00 Lorazepam (Ativan) 0.5 mg PRN Q4HRS PRN PO ANXIETY / AGITATION Last administered on 07/02/16 21:07; Start 07/01/16 at 15:15; Stop 07/02/16 at 21:44 ; Status DC Nicotine (Nicoderm Cq 21mg) 1 patch DAILY TD Last administered on 07/05/16 09: 41; Start 07/02/16 at 09:00 Lorazepam (Ativan) 0.5 mg PRN Q4HRS PRN IV ANXIETY / AGITATION; Start 07/01/16 at 15:15; Stop 07/01/16 at 19:14; Status DC Diphenhydramine HCl (Benadryl) 25 mg PRN Q6HRS PRN IVP ITCHING; Start 07/01/16 at 15:15; Stop 07/01/16 at 19:14; Status DC Haloperidol Lactate (Haldol) 5 mg PRN Q6HRS PRN IM AGITATION; Start 07/01/16 at 15:15; Stop 07/01/16 at 19:14; Status DC Diphenhydramine HCl (Benadryl) 25 mg PRN Q6HRS PRN PO ITCHING Last administered on 07/01/16 20:56; Start 07/01/16 at 18:00 Acetaminophen/ Hydrocodone Bitart (Lortab 5/325) 1 tab PRN BID PRN PO PAIN Last administered on 07/05/16 09:44; Start 07/02/16 at 21:45 Olanzapine (Zyprexa Zydis) 2.5 mg PRN Q2HR PRN PO PSYCHOSIS Last administered on 07/05/16 19:22; Start 07/02/16 at 21:45 Mirtazapine (Remeron) 15 mg QHS PO Last administered on 07/05/16 19:22; Start 07/03/16 at 21:00 Citalopram Hydrobromide (Celexa) 10 mg DAILY PO Last administered on 07/05/16 09:35; Start 07/03/16 at 09:00 Risperidone (Risperdal) 0.25 mg BID PO Last administered on 07/05/16 19:22; Start 07/03/16 at 21:00 Docusate Calcium (Surfak) 240 mg DAILY PO Last administered on 07/05/16 09:41 ; Start 07/04/16 at 21:00 Magnesium Hydroxide (Milk Of Magnesia) 2,400 mg PRN QHS PRN PO CONSTIPATION; Start 07/04/16 at 18:15 Trazodone HCl (Desyrel) 50 mg QHS PO Last administered on 07/05/16 20:54; Start 07/05/16 at 21:00 Trazodone HCl (Desyrel) 50 mg PRN QHS PRN PO INSOMNIA; Start 07/05/16 at 20:45 Active Scripts Active Lisinopril 20 Mg Tablet 1 Tab PO DAILY NICODERM CQ 21mg (Nicotine) 1 Each Patch.td24 1 Patch TP DAILY Lorazepam 0.5 Mg Tablet 1 Tab PO Q4HRS PRN Hydroxyzine Hcl 25 Mg Tablet 1 Tab PO Q6HRS PRN Benadryl (Diphenhydramine Hcl) 25 Mg Capsule 1 Cap PO Q6HRS Diagnosis: Problems: (1) Encounter for psychological evaluation (2) Anxiety disorder (3) Impulse control disorder (4) Dementia, vascular, with delusions (5) Dementia, vascular, with depression (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
--- NOTE | 2016-07-05 22:48 | NUR ---
Nursing Note: Pt in room getting up and attempting wake roommate, staff in to intervene, pt continues to escalate, screaming "get the fuck out, Edgar get them the fuck out" Nurse in to redirect, attempt made to administer repeat Trazodone, pt refused to take it continuing to scream "get the fuck out" Pt then laid back in the bed, Bed alarm set and staff exited room, Pt immediately got out of the bed and attempted to wake roommate again, Pt moved to quiet room at this time r/t continued escalation of screaming and physically combative behaviors.
--- NOTE | 2016-07-05 22:54 | NUR ---
Nursing Note: Pt remains awake, in Michelle with doors locked, continues to scream and call names to staff, stating "Why don't you go to the doctor and get on some meds to lose some weight you fat ass bitwhit" Pt left in michelle with quiet room accessible for her to sleep in at this time
--- NOTE | 2016-07-05 23:12 | NUR ---
Nursing Note: Pt up in locked hallway demanding "get the hell out of my house" then ambulating from door to door and yelling "why did you lock all of my doors, unlock my doors and get the hell out of my house you fat bitch" Pt remains in michelle at this time.
--- NOTE | 2016-07-05 23:41 | NUR ---
Nursing Note: Pt remains awake up in michelle hitting doors demanding to have them unlocked, Nurse again attempted to redirect, explaining to pt that she is in the hospital pt states "this is my house and i am not in the hospital you stupid bitch" Multiple attempts to redirect made, pt continues to escalate attempting to hit and bite staff, PRN Zydis administered at this time
[2016-07-06] MEDS: HYDROcodone/APAP 5/325MG 1 TAB TABLET PO PRN (00:19)
[2016-07-06] MEDS: traZODone 50 MG TABLET. PO PRN (00:20)
--- NOTE | 2016-07-06 00:20 | NUR ---
Nursing Note: Pt remains awake, wandering in locked michelle hitting doors, screaming, demanding staff "get the fuck out of my house" Pt then began with c/o increased pain, PRN Hydrocodone and repeat Trazodone administered per PRN order, Pt consumed medications then resumed screaming at staff stating "get the fuck out of my fucking house right now" Pt remains in michelle with doors locked for prevention of injury to others at this time
[2016-07-06] MEDS: hydrOXYzine HCL 25 MG TABLET PO PRN ×2 (01:19→04:24)
--- NOTE | 2016-07-06 01:19 | NUR ---
Nursing Note: Pt remains awake ambulating in the michelle, very agitated and aggressive, verbally abusive to staff unable to redirect. continues to call staff derogatory names and demanding staff get out of her house, hitting doors and windows demanding to have the police called, PRN Atarax administered at this time per PRN order
--- NOTE | 2016-07-06 01:22 | NUR ---
Behavior Intervention Response and Plan: BIRP Note: Behavior: Assumed Care of patient, patient located in Hallway at shift change. Patient exhibited the following behavior Exit Seeking, Angry, Combative. Brief assessment on rounds of vital signs, medication needs, lab studies, and pain. Treatment plan problems Dementia with BD, Altered Thought Process and Fall Risk. Intervention: Patient assessed and the following interventions initiated safety checks 15 Minute Checks Cognitive Assessment , Head to toe Assessment , Medications. Response: After interactions and interventions patient responded in the following manner, Exit Seeking , Hostile ,Combative. Continue to assess behaviors and condition will continue to monitor throughout the shift as needed. 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 Continue to assess patient for changes in above assessment. Monitor for medication needs, pain, and safety concerns. Hourly rounding performed to ensure safe environment.
--- NOTE | 2016-07-06 04:02 | NUR ---
Nursing Note: Pt slept from 0130 until 0300, Pt t hen awoke, resumed banging on doors, cursing at staff, multiple attempts made to redirect pt, she continues to believe she is in her home and staff needs to get out. Unable to redirect, Pt continues to have agitation, disorientation and delusions at this time
--- NOTE | 2016-07-06 04:21 | NUR ---
Nursing Note: Pt remains awake, psychotic, argumentative, believes this is her house and is demanding to be taken to the third floor, Multiple attempts to redirect made, pt continues to be very argumentative will not allow staff to speak a word without resuming her yelling and ranting. call placed to Dr. Sanchez, Informed of pt's behaviors throughout the night and all PRN Medications administered order received for Atarax 50mg PRN q2H with Max dose of 200mg in 24 hours. Order processed and initiated at this time
[2016-07-06] MEDS: risperiDONE 0.25 MG TABLET. PO SCH ×2 (10:07→19:04)
[2016-07-06] MEDS: CITALOPRAM 10 MG TABLET. PO SCH (10:07)
[2016-07-06] MEDS: NICOTINE 21MG PATCH. TD SCH (10:08)
[2016-07-06] MEDS: DOCUSATE CALCIUM 240 MG CAPSULE PO SCH (10:08)
[2016-07-06] MEDS: LISINOPRIL 20 MG TABLET PO SCH (10:18)
[2016-07-06 10:19] VITALS: BP 153/90
--- NOTE | 2016-07-06 10:30 | NUR ---
Behavior Intervention Response and Plan: BIRP Note: Behavior: Assumed Care of patient, patient located in Day Room at shift change. Patient exhibited the following behavior Wandering, Exit Seeking, Agitated. Brief assessment on rounds of vital signs, medication needs, lab studies, and pain. Treatment plan problems . Intervention: Patient assessed and the following interventions initiated safety checks 15 Minute Checks Cognitive Assessment , Head to toe Assessment , Medications. Response: After interactions and interventions patient responded in the following manner, Calm , Wandering ,Compliant. Continue to assess behaviors and condition will continue to monitor throughout the shift as needed. Plan: Continue to monitor Master Treatment Plan for patient's progress toward short term goals of Decreased Agitation, Decreased Aggression, group home goals to return to previous living setting vs placement. Continue to assess patient for changes in above assessment. Monitor for medication needs, pain, and safety concerns. Hourly rounding performed to ensure safe environment.
--- NOTE | 2016-07-06 13:05 | NUR ---
This nurse spoke with pts daughter in law Charlene at lunch, daughter in law expressed frustration bc court for legal guardianship of pt did not happen today. This nurse provided support to family and informed social work job titles.
--- NOTE | 2016-07-06 13:15 | NUR ---
THERAPEUTIC RECREATION GROUP NOTE TITLE :[employer] ACTIVITY : Sensory GOAL : Facility memory and reminiscence, increase concentration/attention. Decrease stress, restlessness, tension. DURATION : 45 Minutes RESPONSE : Full participation the entire time. Pt. needed repeat directions and reassurance. Pt. was very talkative and several times reminisced about the music that was being played.
--- NOTE | 2016-07-06 14:00 | NUR ---
THERAPEUTIC RECREATION GROUP NOTE TITLE :Card Games: Slap Ashish, Spoons, Higher/Lower ACTIVITY : Activities and Games GOAL : Increase social interaction, fine motor skills. Maintain or improve mental functioning. Decrease restlessness DURATION : 60 minutes RESPONSE : Full participation the entire time. Pt. needed reminders about the rules of each game and needed time to allow for processing. Pt. Occasionally cussed when she guessed wrong or messed up a play but each time she was quick to apologize as she put her hand over her mouth.
[2016-07-06 16:14] VITALS: BP 150/84
[2016-07-06] MEDS: MIRTAZAPINE 15 MG TABLET PO SCH (19:04)
[2016-07-06] MEDS: traZODone 50 MG TABLET. PO SCH (19:04)
--- NOTE | 2016-07-06 20:56 | PDOC ---
Exam Yaya Demential Exam: Yaya Note: Please also refer to the separate dictated note~for this date of service dictated separately.~Patient seen individually. Discussed the patient with Nursing staff reviewed the chart.~Reviewed interim history and current functioning. Reviewed vital signs,~Labs/ Radiology~and current medications noted below. Continue current treatment with the changes noted in the dictated addendum note Assessment: Vital Signs: Vital Signs Date Time Temp Pulse Resp B/P Pulse Ox O2 Delivery O2 Flow Rate FiO2 07/06/16 16:14 97.7 76 18 150/84 98 07/06/16 10:19 Room Air I&O Intake and Output 07/06/16 07:00 Intake Total 840 ml Balance 840 ml Intake Oral 840 ml Current Medications: Meds: Current Medications Diphenhydramine HCl (Benadryl) 25 mg Q6HRS PO ; Start 07/01/16 at 18:00; Stop at 18:00; Status DC Hydroxyzine HCl (Atarax) 25 mg PRN Q6HRS PRN PO ITCHING Last administered on 01:19; Start 07/01/16 at 15:15; Stop 07/06/16 at 04:21; Status DC Lisinopril (Prinivil) 20 mg DAILY PO Last administered on 07/06/16 10:18; Start 07/02/16 at 09:00 Lorazepam (Ativan) 0.5 mg PRN Q4HRS PRN PO ANXIETY / AGITATION Last administered on 07/02/16 21:07; Start 07/01/16 at 15:15; Stop 07/02/16 at 21:44 ; Status DC Nicotine (Nicoderm Cq 21mg) 1 patch DAILY TD Last administered on 07/06/16 10: 08; Start 07/02/16 at 09:00 Lorazepam (Ativan) 0.5 mg PRN Q4HRS PRN IV ANXIETY / AGITATION; Start 07/01/16 at 15:15; Stop 07/01/16 at 19:14; Status DC Diphenhydramine HCl (Benadryl) 25 mg PRN Q6HRS PRN IVP ITCHING; Start 07/01/16 at 15:15; Stop 07/01/16 at 19:14; Status DC Haloperidol Lactate (Haldol) 5 mg PRN Q6HRS PRN IM AGITATION; Start 07/01/16 at 15:15; Stop 07/01/16 at 19:14; Status DC Diphenhydramine HCl (Benadryl) 25 mg PRN Q6HRS PRN PO ITCHING Last administered on 07/01/16 20:56; Start 07/01/16 at 18:00 Acetaminophen/ Hydrocodone Bitart (Lortab 5/325) 1 tab PRN BID PRN PO PAIN Last administered on 07/06/16 00:19; Start 07/02/16 at 21:45 Olanzapine (Zyprexa Zydis) 2.5 mg PRN Q2HR PRN PO PSYCHOSIS Last administered on 07/05/16 23:43; Start 07/02/16 at 21:45 Mirtazapine (Remeron) 15 mg QHS PO Last administered on 07/06/16 19:04; Start 07/03/16 at 21:00 Citalopram Hydrobromide (Celexa) 10 mg DAILY PO Last administered on 07/06/16 10:07; Start 07/03/16 at 09:00 Risperidone (Risperdal) 0.25 mg BID PO Last administered on 07/06/16 19:04; Start 07/03/16 at 21:00 Docusate Calcium (Surfak) 240 mg DAILY PO Last administered on 07/06/16 10:08 ; Start 07/04/16 at 21:00 Magnesium Hydroxide (Milk Of Magnesia) 2,400 mg PRN QHS PRN PO CONSTIPATION; Start 07/04/16 at 18:15 Trazodone HCl (Desyrel) 50 mg QHS PO Last administered on 07/06/16 19:04; Start 07/05/16 at 21:00 Trazodone HCl (Desyrel) 50 mg PRN QHS PRN PO INSOMNIA Last administered on 07/06 00:20; Start 07/05/16 at 20:45 Hydroxyzine HCl (Atarax) 50 mg PRN Q2HR PRN PO Psychosis Last administered on 04:24; Start 07/06/16 at 04:30 Active Scripts Active Lisinopril 20 Mg Tablet 1 Tab PO DAILY NICODERM CQ 21mg (Nicotine) 1 Each Patch.td24 1 Patch TP DAILY Lorazepam 0.5 Mg Tablet 1 Tab PO Q4HRS PRN Hydroxyzine Hcl 25 Mg Tablet 1 Tab PO Q6HRS PRN Benadryl (Diphenhydramine Hcl) 25 Mg Capsule 1 Cap PO Q6HRS Diagnosis: Problems: (1) Encounter for psychological evaluation (2) Anxiety disorder (3) Impulse control disorder (4) Dementia, vascular, with delusions (5) Dementia, vascular, with depression (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
--- NOTE | 2016-07-06 22:30 | PN ---
DATE: 07/05/2016 PSYCHIATRIC PROGRESS NOTE This is a late entry for 07/05/2016, covers elements not covered in my initial note. SUBJECTIVE: The patient has had a very difficult day and previous night. She did not sleep the previous night, confused, agitated, spitting out her medications, sobbing, labile in her mood. She is quite confused. REVIEW OF SYSTEMS: No CV, , pulmonary, eye, ENT system symptoms on review. Reliability poor. MENTAL STATUS EXAM: Oriented to herself. Insight, judgment, recent and remote memory, attention, concentration, fund of knowledge poor, consistent with her diagnosis mentioned in my initial note. IMPRESSION: Major neurocognitive disorder, Alzheimer, vascular with delirium, delusion, depression, behavioral disturbance; anxiety disorder, unspecified; impulse control disorder, unspecified. PLAN: Continue psychotropics mentioned in my initial note. Start trazodone 50 mg at bedtime, august repeat x 1 p.r.n. insomnia. CAITLYN BHATT MD DR: ALICIA/shanon JOB#: [id number] / [id number]
--- NOTE | 2016-07-06 22:35 | NUR ---
Behavior Intervention Response and Plan: BIRP Note: Behavior: Assumed Care of patient, patient located in Hallway at shift change. Patient exhibited the following behavior Wandering, Anxious, Demanding. Brief assessment on rounds of vital signs, medication needs, lab studies, and pain. Treatment plan problems Dementia with BD, Altered thought process, and Fall risk. Intervention: Patient assessed and the following interventions initiated safety checks 15 Minute Checks Cognitive Assessment , Head to toe Assessment , Medications. Response: After interactions and interventions patient responded in the following manner, Wandering , Restless ,Anxious. Continue to assess behaviors and condition will continue to monitor throughout the shift as needed. 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 Continue to assess patient for changes in above assessment. Monitor for medication needs, pain, and safety concerns. Hourly rounding performed to ensure safe environment.
[2016-07-07 06:26] VITALS: BP 127/71
[2016-07-07] MEDS: risperiDONE 0.25 MG TABLET. PO SCH ×2 (08:53→19:16)
[2016-07-07] MEDS: NICOTINE 21MG PATCH. TD SCH (08:53)
[2016-07-07] MEDS: CITALOPRAM 10 MG TABLET. PO SCH (08:53)
[2016-07-07] MEDS: LISINOPRIL 20 MG TABLET PO SCH (08:53)
[2016-07-07] MEDS: DOCUSATE CALCIUM 240 MG CAPSULE PO SCH (08:53)
--- NOTE | 2016-07-07 09:30 | NUR ---
Patient very agitated, stating that we have taken her purse and jewelry and she wants them back right now. Denies that her family has been to visit, states she has not seen them and they do not have her purse and jewelry. Redirected at this time and will continue to monitor.
--- NOTE | 2016-07-07 13:00 | NUR ---
Behavior Intervention Response and Plan: BIRP Note: Behavior: Assumed Care of patient, patient located in Hallway at shift change. Patient exhibited the following behavior Wandering, Restless, Irritable. Brief assessment on rounds of vital signs, medication needs, lab studies, and pain. Treatment plan problems 1 and 2. Intervention: Patient assessed and the following interventions initiated safety checks 15 Minute Checks Cognitive Assessment , Medications , Oral Hydration. Response: After interactions and interventions patient responded in the following manner, Compliant , Demanding ,Irritable. Continue to assess behaviors and condition will continue to monitor throughout the shift as needed. Plan: Continue to monitor Master Treatment Plan for patient's progress toward short term goals of Decreased Agitation, Decreased Aggression, skilled nursing goals to return to previous living setting vs placement. Continue to assess patient for changes in above assessment. Monitor for medication needs, pain, and safety concerns. Hourly rounding performed to ensure safe environment.
--- NOTE | 2016-07-07 14:00 | NUR ---
THERAPEUTIC RECREATION GROUP NOTE TITLE :Dance and sing along with Nellie ACTIVITY : Music GOAL : Increase socialization, elevate mood, stimulate memory DURATION : 60 minutes RESPONSE : Full participation most of the time. Pt. sang, danced, reminisced with a smile on her face most of the time. Pt. wandered halls occasionally wanting to mail papers to the social security office and was confused about where her purse was but was redirected to join the group. Pt complied and continued to sing and dance.
[2016-07-07 15:55] VITALS: BP 127/78
--- NOTE | 2016-07-07 18:00 | NUR ---
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 It was stated that they would be bringing the papers in at visiting hours. They did not have them with them.
[2016-07-07] MEDS: traZODone 50 MG TABLET. PO SCH (19:16)
[2016-07-07] MEDS: MIRTAZAPINE 15 MG TABLET PO SCH (19:16)
--- NOTE | 2016-07-07 21:08 | PDOC ---
Exam Yaya Demential Exam: Yaya Note: Please also refer to the separate dictated note~for this date of service dictated separately.~Patient seen individually. Discussed the patient with Nursing staff reviewed the chart.~Reviewed interim history and current functioning. Reviewed vital signs,~Labs/ Radiology~and current medications noted below. Continue current treatment with the changes noted in the dictated addendum note Assessment: Vital Signs: Vital Signs Date Time Temp Pulse Resp B/P Pulse Ox O2 Delivery O2 Flow Rate FiO2 07/07/16 15:55 98.7 80 18 127/78 97 07/06/16 10:19 Room Air I&O Intake and Output 07/07/16 07:00 Intake Total 600 ml Balance 600 ml Intake Oral 600 ml Current Medications: Meds: Current Medications Diphenhydramine HCl (Benadryl) 25 mg Q6HRS PO ; Start 07/01/16 at 18:00; Stop at 18:00; Status DC Hydroxyzine HCl (Atarax) 25 mg PRN Q6HRS PRN PO ITCHING Last administered on 01:19; Start 07/01/16 at 15:15; Stop 07/06/16 at 04:21; Status DC Lisinopril (Prinivil) 20 mg DAILY PO Last administered on 07/07/16 08:53; Start 07/02/16 at 09:00 Lorazepam (Ativan) 0.5 mg PRN Q4HRS PRN PO ANXIETY / AGITATION Last administered on 07/02/16 21:07; Start 07/01/16 at 15:15; Stop 07/02/16 at 21:44 ; Status DC Nicotine (Nicoderm Cq 21mg) 1 patch DAILY TD Last administered on 07/07/16 08: 53; Start 07/02/16 at 09:00 Lorazepam (Ativan) 0.5 mg PRN Q4HRS PRN IV ANXIETY / AGITATION; Start 07/01/16 at 15:15; Stop 07/01/16 at 19:14; Status DC Diphenhydramine HCl (Benadryl) 25 mg PRN Q6HRS PRN IVP ITCHING; Start 07/01/16 at 15:15; Stop 07/01/16 at 19:14; Status DC Haloperidol Lactate (Haldol) 5 mg PRN Q6HRS PRN IM AGITATION; Start 07/01/16 at 15:15; Stop 07/01/16 at 19:14; Status DC Diphenhydramine HCl (Benadryl) 25 mg PRN Q6HRS PRN PO ITCHING Last administered on 07/01/16 20:56; Start 07/01/16 at 18:00 Acetaminophen/ Hydrocodone Bitart (Lortab 5/325) 1 tab PRN BID PRN PO PAIN Last administered on 07/06/16 00:19; Start 07/02/16 at 21:45 Olanzapine (Zyprexa Zydis) 2.5 mg PRN Q2HR PRN PO PSYCHOSIS Last administered on 07/05/16 23:43; Start 07/02/16 at 21:45 Mirtazapine (Remeron) 15 mg QHS PO Last administered on 07/07/16 19:16; Start 07/03/16 at 21:00 Citalopram Hydrobromide (Celexa) 10 mg DAILY PO Last administered on 07/07/16 08:53; Start 07/03/16 at 09:00 Risperidone (Risperdal) 0.25 mg BID PO Last administered on 07/07/16 19:16; Start 07/03/16 at 21:00 Docusate Calcium (Surfak) 240 mg DAILY PO Last administered on 07/07/16 08:53 ; Start 07/04/16 at 21:00 Magnesium Hydroxide (Milk Of Magnesia) 2,400 mg PRN QHS PRN PO CONSTIPATION; Start 07/04/16 at 18:15 Trazodone HCl (Desyrel) 50 mg QHS PO Last administered on 07/07/16 19:16; Start 07/05/16 at 21:00 Trazodone HCl (Desyrel) 50 mg PRN QHS PRN PO INSOMNIA Last administered on 07/06 00:20; Start 07/05/16 at 20:45 Hydroxyzine HCl (Atarax) 50 mg PRN Q2HR PRN PO Psychosis Last administered on 04:24; Start 07/06/16 at 04:30 Active Scripts Active Lisinopril 20 Mg Tablet 1 Tab PO DAILY NICODERM CQ 21mg (Nicotine) 1 Each Patch.td24 1 Patch TP DAILY Lorazepam 0.5 Mg Tablet 1 Tab PO Q4HRS PRN Hydroxyzine Hcl 25 Mg Tablet 1 Tab PO Q6HRS PRN Benadryl (Diphenhydramine Hcl) 25 Mg Capsule 1 Cap PO Q6HRS Diagnosis: Problems: (1) Encounter for psychological evaluation (2) Anxiety disorder (3) Impulse control disorder (4) Dementia, vascular, with delusions (5) Dementia, vascular, with depression (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
--- NOTE | 2016-07-07 22:14 | PN ---
DATE: 07/06/2016 This late entry for 07/06/2016 covers elements not covered in my initial note. SUBJECTIVE: I was called by nursing staff the previous night around midnight. She is extremely agitated, believed people were coming into her house, walked ____ making up her roommate, restless, difficult to redirect, delusional, hitting, kicking, biting and we added p.r.n., hydroxyzine, which seemed to help since Zyprexa Zydis was not helpful nor was the Ativan. During the day on 07/06/2016, she has done a little better, but did not remember me from any of her prior visits. REVIEW OF SYSTEMS: No CV, , pulmonary, eye system symptoms on review. MENTAL STATUS EXAM: Oriented to herself. Insight, judgment, recent and remote memory, attention, concentration, fund of knowledge poor, consistent with her diagnosis as mentioned in my initial note. PLAN: Continue current psychotropics mentioned in my initial note. Adjust further as clinically indicated. Use Atarax p.r.n. MAN Quinten BHATT MD DR: ALICIA/shanon JOB#: [id number] / [id number]
--- NOTE | 2016-07-07 23:56 | NUR ---
Behavior Intervention Response and Plan: BIRP Note: Behavior: Assumed Care of patient, patient located in Hallway at shift change. Patient exhibited the following behavior Restless, Anxious, Compliant. Brief assessment on rounds of vital signs, medication needs, lab studies, and pain. Treatment plan problems Dementia with BD, Altered Thought Process, and Fall Risk. Intervention: Patient assessed and the following interventions initiated safety checks 15 Minute Checks Cognitive Assessment , Head to toe Assessment , Medications. Response: After interactions and interventions patient responded in the following manner, Interactive , Irritable ,Sleeping. Continue to assess behaviors and condition will continue to monitor throughout the shift as needed. 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 Continue to assess patient for changes in above assessment. Monitor for medication needs, pain, and safety concerns. Hourly rounding performed to ensure safe environment.
[2016-07-08 08:46] VITALS: BP 144/84
[2016-07-08] MEDS: CITALOPRAM 10 MG TABLET. PO SCH (08:49)
[2016-07-08] MEDS: DOCUSATE CALCIUM 240 MG CAPSULE PO SCH (08:49)
[2016-07-08] MEDS: risperiDONE 0.25 MG TABLET. PO SCH ×2 (08:49→19:37)
[2016-07-08] MEDS: NICOTINE 21MG PATCH. TD SCH (08:49)
[2016-07-08] MEDS: LISINOPRIL 20 MG TABLET PO SCH (08:49)
--- NOTE | 2016-07-08 10:45 | NUR ---
THERAPEUTIC RECREATION GROUP NOTE TITLE :Bowling ACTIVITY : Activities and Games GOAL : Maintain and improve mental and physical functioning, increase socialization and moral DURATION : 45 Minutes RESPONSE : No participation. Pt. was invited but did not want to join and wandered the halls instead.
--- NOTE | 2016-07-08 14:03 | NUR ---
Behavior Intervention Response and Plan: BIRP Note: Behavior: Assumed Care of patient, patient located in Day Room at shift change. Patient exhibited the following behavior Wandering, Restless, Disorganized. Brief assessment on rounds of vital signs, medication needs, lab studies, and pain. Treatment plan problems 1 and 2. Intervention: Patient assessed and the following interventions initiated safety checks 15 Minute Checks Cognitive Assessment , Medications , Oral Hydration. Response: After interactions and interventions patient responded in the following manner, Restless , Interactive ,Compliant. Continue to assess behaviors and condition will continue to monitor throughout the shift as needed. 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 Continue to assess patient for changes in above assessment. Monitor for medication needs, pain, and safety concerns. Hourly rounding performed to ensure safe environment.
--- NOTE | 2016-07-08 15:15 | NUR ---
THERAPEUTIC RECREATION GROUP NOTE TITLE :Bowling ACTIVITY : Activities and Games GOAL : Maintain and improve mental and physical functioning, increase socialization and moral DURATION : 60 Minutes RESPONSE : Full participation. Pt. needed no prompting to stay engaged. She left when it was not her turn but returned to [facility]. She reminisced about bowling as a young girl and was helpful to other patients. Pt. was able to catch the ball when tossed to her.
[2016-07-08 16:16] VITALS: BP 108/61
[2016-07-08] MEDS: MIRTAZAPINE 15 MG TABLET PO SCH (19:38)
[2016-07-08] MEDS: traZODone 50 MG TABLET. PO SCH (19:38)
[2016-07-08] MEDS: fentaNYL 12MCG/HR 1 PATCH PATCH TD SCH (19:40)
--- NOTE | 2016-07-08 19:50 | NUR ---
Nursing Note: Pt agitated, yelling, demanding her purse; unable to redirect. Pt also upsetting other patients as she was pacing and yelling. PRN given. will continue to redirect.
[2016-07-08] MEDS: traZODone 50 MG TABLET. PO PRN (23:02)
--- NOTE | 2016-07-08 23:40 | NUR ---
Nursing Note: Pt approached nursing station and complained that she was unable to sleep. Pt became tearful and sad. PRN given. Will continue to monitor.
--- NOTE | 2016-07-09 00:12 | NUR ---
Behavior Intervention Response and Plan: BIRP Note: Behavior: Assumed Care of patient, patient located in Day Room at shift change. Patient exhibited the following behavior Wandering, Restless, Irritable. Brief assessment on rounds of vital signs, medication needs, lab studies, and pain. Treatment plan problems Dementia with BD, Altered Mental Status and Fall Risk. Intervention: Patient assessed and the following interventions initiated safety checks 15 Minute Checks Cognitive Assessment , Head to toe Assessment , Medications. Response: After interactions and interventions patient responded in the following manner, Restless , Disorganized ,Resistive. Continue to assess behaviors and condition will continue to monitor throughout the shift as needed. 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 Continue to assess patient for changes in above assessment. Monitor for medication needs, pain, and safety concerns. Hourly rounding performed to ensure safe environment.
--- NOTE | 2016-07-09 01:50 | PN ---
DATE: 07/07/2016 PSYCHIATRIC PROGRESS NOTE This is a late entry for 07/07/2016, covers elements not covered in my initial note. SUBJECTIVE: The patient remains confused, anxious, restless, did not remember seeing me any time before, even though I have seen her everyday, forgetful, anxious, labile at times. REVIEW OF SYSTEMS: No CV, , eye, ENT or pulmonary system symptoms on review. Reliability poor. MENTAL STATUS EXAM: Oriented to herself. Insight, judgment, recent memory is impaired. Language function intact. Attention span short. Mood and affect still intermittently labile, anxious. LABORATORY DATA: Reviewed. IMPRESSION: Unchanged from initial note. PLAN: Continue current psychotropics. Adjust further as clinically indicated. MAN Quinten BHATT MD DR: ALICIA/shanon JOB#: [id number] / [id number]
--- NOTE | 2016-07-09 04:28 | NUR ---
Nursing Note: Pt slept very little. Pt tearful and paranoid. Attempted to get her to sleep but difficult to redirect. Continually attention seeking, confused, and very needy.
[2016-07-09 06:16] VITALS: BP 115/69
[2016-07-09 07:46] LABS: CALCIUM 9.2 mg/dL (8.5-10.1); CREATININE 0.7 mg/dL (0.6-1.0); GFR 82.5
--- NOTE | 2016-07-09 08:42 | NUR ---
patient in hallway crying and cursing, stating that her family has left her here. Re-oriented her to hospital and current situation, she continued to curse and say she is "not [facility]". Will continue to monitor.
[2016-07-09] MEDS: risperiDONE 0.25 MG TABLET. PO SCH ×2 (08:45→19:20)
[2016-07-09] MEDS: NICOTINE 21MG PATCH. TD SCH ×3 (08:45→12:57)
[2016-07-09] MEDS: CITALOPRAM 10 MG TABLET. PO SCH (08:45)
[2016-07-09] MEDS: LISINOPRIL 20 MG TABLET PO SCH (08:45)
[2016-07-09] MEDS: DOCUSATE CALCIUM 240 MG CAPSULE PO SCH (08:45)
[2016-07-09] MEDS: hydrOXYzine HCL 25 MG TABLET PO PRN ×2 (08:49→22:03)
--- NOTE | 2016-07-09 08:50 | NUR ---
pt speaking in rapid faroese and knocking on the nurses station door. Cursing and insisting she has missed her ride. Given PRN atarax for A/A and will continue to monitor.
--- NOTE | 2016-07-09 08:59 | NUR ---
patient refused nicotine patch to be placed on her. She became combative. Unable to remove yesterdays patch at this time. Patient remains agitated and is insisting that there were women here that offered her a ride, and they left without her. Will continue to monitor. Addendum: 07/09/16 at 1259 by PUSHPA DAWSON RN patient less delusional, allowed nicotine patch to be placed on left shoulder at this time.
--- NOTE | 2016-07-09 13:35 | NUR ---
Behavior Intervention Response and Plan: BIRP Note: Behavior: Assumed Care of patient, patient located in Hallway at shift change. Patient exhibited the following behavior Wandering, Exit Seeking, Restless. Brief assessment on rounds of vital signs, medication needs, lab studies, and pain. Treatment plan problems 1 and 2. Intervention: Patient assessed and the following interventions initiated safety checks 15 Minute Checks Cognitive Assessment , Medications , Oral Hydration. Response: After interactions and interventions patient responded in the following manner, Disorganized , Compliant ,Attention Seeking. Continue to assess behaviors and condition will continue to monitor throughout the shift as needed. Plan: Continue to monitor Master Treatment Plan for patient's progress toward short term goals of Decreased Agitation, Decreased Aggression, penitentiary goals to return to previous living setting vs placement. Continue to assess patient for changes in above assessment. Monitor for medication needs, pain, and safety concerns. Hourly rounding performed to ensure safe environment.
--- NOTE | 2016-07-09 14:00 | NUR ---
THERAPEUTIC RECREATION GROUP NOTE TITLE :What's in the Box? ACTIVITY : Activities and Games GOAL : Increase attention/ concentration and sensory stimulation. Decrease DURATION : 45 Minutes RESPONSE : No participation. Pt. was flustered and agitated. She refused to play and was fixated on leaving. Pt. wandered the halls and occasionally returned to the group but only for a moment before she left.
--- NOTE | 2016-07-09 15:34 | NUR ---
Patient agitating others, stating that we are stealing her social security check because we have her social security number. Informed her this is not true. Continued to pace rapidly and speak in omani. Reminded her to speak in [place], as I don't speak o[place]i. She remains upset. Gave PRN zyprexa per order and will continue to monitor.
[2016-07-09 16:23] VITALS: BP 159/95
[2016-07-09] MEDS: MIRTAZAPINE 15 MG TABLET PO SCH (19:20)
[2016-07-09] MEDS: traZODone 50 MG TABLET. PO SCH (19:20)
[2016-07-09] MEDS: traZODone 50 MG TABLET. PO PRN (22:03)
--- NOTE | 2016-07-09 22:10 | NUR ---
Nursing Note: Pt pacing, wandering, speaking in [place]ian, tearful at this time. Pt wanting to go outside to smoke, wants her purse. Several attempts to reorient pt to hospital and current situation unsuccessful. PRN Atarax and repeat Trazodone administered as ordered at this time.
--- NOTE | 2016-07-09 22:14 | NUR ---
Behavior Intervention Response and Plan: BIRP Note: Behavior: Assumed Care of patient, patient located in Day Room at shift change. Patient exhibited the following behavior Restless, Anxious, Compliant. Brief assessment on rounds of vital signs, medication needs, lab studies, and pain. Treatment plan problems 1 and 2. Intervention: Patient assessed and the following interventions initiated safety checks 15 Minute Checks Cognitive Assessment , Head to toe Assessment , Medications. Response: After interactions and interventions patient responded in the following manner, Restless , Compliant ,Anxious. Continue to assess behaviors and condition will continue to monitor throughout the shift as needed. 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 Continue to assess patient for changes in above assessment. Monitor for medication needs, pain, and safety concerns. Hourly rounding performed to ensure safe environment.
[2016-07-10] MEDS: hydrOXYzine HCL 25 MG TABLET PO PRN (03:04)
--- NOTE | 2016-07-10 03:15 | NUR ---
Nursing Note: Pt has not slept at all thus far this shift despite having administered all scheduled HS meds as well as PRN repeat Trazodone dose and PRN Atarax. Pt continues to wander the halls, going in/out of other pt rooms, speaking in [place], yelling/cursing at staff, banging on doors. PRN Atarax administered @0303 as ordered.
--- NOTE | 2016-07-10 03:49 | NUR ---
Nursing Note: Pt agitation continues to escalate. Attempted to administer PRN Hydrocodone as ordered for pain d/t pt limping and rubbing her right hip, however pt refused and agitation continued to escalate. Pt yelling/screaming at staff, swearing, combative with attempts at redirection, threw a wet floor sign at staff. Pt secured in [facility] for safety. Behaviors continue to escalate. Pt assisted into quiet room, swinging at staff, throwing water on staff. PRN Zydis administered as ordered at this time. Staff stayed in room with pt until behaviors de-escalated. Pt currently resting in bed with her eyes closed.
[2016-07-10] MEDS: DOCUSATE CALCIUM 240 MG CAPSULE PO SCH (08:54)
[2016-07-10] MEDS: risperiDONE 0.25 MG TABLET. PO SCH ×2 (08:54→20:33)
[2016-07-10] MEDS: NICOTINE 21MG PATCH. TD SCH (08:54)
[2016-07-10] MEDS: CITALOPRAM 10 MG TABLET. PO SCH (09:00)
[2016-07-10] MEDS: LISINOPRIL 20 MG TABLET PO SCH (09:00)
--- NOTE | 2016-07-10 09:18 | PDOC ---
Exam Yaya Demential Exam: Yaya Note: Please also refer to the separate dictated note~for this date of service dictated separately.~Patient seen individually. Discussed the patient with Nursing staff reviewed the chart.~Reviewed interim history and current functioning. Reviewed vital signs,~Labs/ Radiology~and current medications noted below. Continue current treatment with the changes noted in the dictated addendum note Assessment: Vital Signs: Vital Signs Date Time Temp Pulse Resp B/P Pulse Ox O2 Delivery O2 Flow Rate FiO2 07/10/16 09:00 77 137/86 07/09/16 16:23 97.5 18 97 07/08/16 23:57 Room Air I&O Intake and Output 07/10/16 07:00 Intake Total 1200 ml Balance 1200 ml Intake Oral 1200 ml Current Medications: Meds: Current Medications Diphenhydramine HCl (Benadryl) 25 mg Q6HRS PO ; Start 07/01/16 at 18:00; Stop at 18:00; Status DC Hydroxyzine HCl (Atarax) 25 mg PRN Q6HRS PRN PO ITCHING Last administered on 01:19; Start 07/01/16 at 15:15; Stop 07/06/16 at 04:21; Status DC Lisinopril (Prinivil) 20 mg DAILY PO Last administered on 07/10/16 09:00; Start 07/02/16 at 09:00 Lorazepam (Ativan) 0.5 mg PRN Q4HRS PRN PO ANXIETY / AGITATION Last administered on 07/02/16 21:07; Start 07/01/16 at 15:15; Stop 07/02/16 at 21:44 ; Status DC Nicotine (Nicoderm Cq 21mg) 1 patch DAILY TD Last administered on 07/10/16 08: 54; Start 07/02/16 at 09:00 Lorazepam (Ativan) 0.5 mg PRN Q4HRS PRN IV ANXIETY / AGITATION; Start 07/01/16 at 15:15; Stop 07/01/16 at 19:14; Status DC Diphenhydramine HCl (Benadryl) 25 mg PRN Q6HRS PRN IVP ITCHING; Start 07/01/16 at 15:15; Stop 07/01/16 at 19:14; Status DC Haloperidol Lactate (Haldol) 5 mg PRN Q6HRS PRN IM AGITATION; Start 07/01/16 at 15:15; Stop 07/01/16 at 19:14; Status DC Diphenhydramine HCl (Benadryl) 25 mg PRN Q6HRS PRN PO ITCHING Last administered on 07/01/16 20:56; Start 07/01/16 at 18:00 Acetaminophen/ Hydrocodone Bitart (Lortab 5/325) 1 tab PRN BID PRN PO PAIN Last administered on 07/06/16 00:19; Start 07/02/16 at 21:45 Olanzapine (Zyprexa Zydis) 2.5 mg PRN Q2HR PRN PO PSYCHOSIS Last administered on 07/10/16 03:45; Start 07/02/16 at 21:45 Mirtazapine (Remeron) 15 mg QHS PO Last administered on 07/09/16 19:20; Start 07/03/16 at 21:00 Citalopram Hydrobromide (Celexa) 10 mg DAILY PO Last administered on 07/10/16 09:00; Start 07/03/16 at 09:00 Risperidone (Risperdal) 0.25 mg BID PO Last administered on 07/10/16 08:54; Start 07/03/16 at 21:00 Docusate Calcium (Surfak) 240 mg DAILY PO Last administered on 07/10/16 08:54 ; Start 07/04/16 at 21:00 Magnesium Hydroxide (Milk Of Magnesia) 2,400 mg PRN QHS PRN PO CONSTIPATION; Start 07/04/16 at 18:15 Trazodone HCl (Desyrel) 50 mg QHS PO Last administered on 07/09/16 19:20; Start 07/05/16 at 21:00 Trazodone HCl (Desyrel) 50 mg PRN QHS PRN PO INSOMNIA Last administered on 07/09 22:03; Start 07/05/16 at 20:45 Hydroxyzine HCl (Atarax) 50 mg PRN Q2HR PRN PO Psychosis Last administered on 03:04; Start 07/06/16 at 04:30 Fentanyl (Duragesic 12mcg/ Hr) 1 patch Q3DAYS TD Last administered on t 19:40; Start 07/08/16 at 18:30 Active Scripts Active Lisinopril 20 Mg Tablet 1 Tab PO DAILY NICODERM CQ 21mg (Nicotine) 1 Each Patch.td24 1 Patch TP DAILY Lorazepam 0.5 Mg Tablet 1 Tab PO Q4HRS PRN Hydroxyzine Hcl 25 Mg Tablet 1 Tab PO Q6HRS PRN Benadryl (Diphenhydramine Hcl) 25 Mg Capsule 1 Cap PO Q6HRS Diagnosis: Problems: (1) Anxiety disorder (2) Impulse control disorder (3) Dementia, vascular, with delusions (4) Dementia, vascular, with depression (5) 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
--- NOTE | 2016-07-10 10:53 | NUR ---
Pt wandering up and down hallway, thinking someone took her purse. Pt upset, states she needs her purse with the money in it. Redirected numerous times without success. PRJason Ryder given at this time.
--- NOTE | 2016-07-10 11:00 | NUR ---
THERAPEUTIC RECREATION GROUP NOTE TITLE :Movement to Music with Weights and Pool Noodles ACTIVITY : Exercise and Movement GOAL : Increase social interaction, physical endurance, and morale DURATION : 60 Minutes RESPONSE : Full participation. Initially Pt. said she did not want to participate; however, she was agreeable and did not want to stop dancing.
--- NOTE | 2016-07-10 14:37 | NUR ---
Pt wandering up and down hallway. Pt believes she is in a casino playing slots. Redirected numerous times, without success. PRJason Ryder given at this time.
--- NOTE | 2016-07-10 15:00 | NUR ---
Behavior Intervention Response and Plan: BIRP Note: Behavior: Assumed Care of patient, patient located in Hallway at shift change. Patient exhibited the following behavior Disorganized, Anxious, Restless. Brief assessment on rounds of vital signs, medication needs, lab studies, and pain. Treatment plan problems . Intervention: Patient assessed and the following interventions initiated safety checks 15 Minute Checks Head to toe Assessment , Medications , Nutrition. Response: After interactions and interventions patient responded in the following manner, Wandering , Restless ,Compliant. Continue to assess behaviors and condition will continue to monitor throughout the shift as needed. Plan: Continue to monitor Master Treatment Plan for patient's progress toward short term goals of Decreased Agitation, Decreased Anxiety, director long term care goals to return to previous living setting vs placement. Continue to assess patient for changes in above assessment. Monitor for medication needs, pain, and safety concerns. Hourly rounding performed to ensure safe environment.
[2016-07-10 16:03] VITALS: BP 106/75
--- NOTE | 2016-07-10 19:30 | NUR ---
Nursing Note: Pt pacing hallways, requesting cigarettes, proceeded to pat this nurse's pockets looking for a commissions specialist. Pt was redirected to situation several times without success. Pt then began to yell, curse in Dive[place] at staff, and began banging on windows and doors of nurse's station. PRN Zydis offered, pt knocked out of nurse's hands. PRN Zyprexa offered a second time, administered as ordered at this time. Pt then secured in [facility] for safety of self and others.
[2016-07-10] MEDS: MIRTAZAPINE 15 MG TABLET PO SCH (20:33)
[2016-07-10] MEDS: traZODone 50 MG TABLET. PO SCH (20:33)
[2016-07-10] MEDS: busPIRone 5 MG TABLET. PO SCH (20:33)
[2016-07-10] MEDS: HYDROcodone/APAP 5/325MG 1 TAB TABLET PO PRN (20:34)
--- NOTE | 2016-07-11 00:27 | NUR ---
Behavior Intervention Response and Plan: BIRP Note: Behavior: Assumed Care of patient, patient located in Hallway at shift change. Patient exhibited the following behavior Wandering, Irritable, Agitated. Brief assessment on rounds of vital signs, medication needs, lab studies, and pain. Treatment plan problems 1 and 2. Intervention: Patient assessed and the following interventions initiated safety checks 15 Minute Checks Cognitive Assessment , Head to toe Assessment , Medications. Response: After interactions and interventions patient responded in the following manner, Restless , Wandering ,Compliant. Continue to assess behaviors and condition will continue to monitor throughout the shift as needed. 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 Continue to assess patient for changes in above assessment. Monitor for medication needs, pain, and safety concerns. Hourly rounding performed to ensure safe environment.
--- NOTE | 2016-07-11 02:06 | PN ---
DATE: 07/08/2016 PSYCHIATRIC PROGRESS NOTE This is a late entry for 07/08/2016, covers elements not covered in my initial note. SUBJECTIVE: The patient was seen individually and also staffed at a treatment team meeting with the entire team with the patient's family, [id number] attending. Reviewed the patient's history, diagnosis, living situation, discharge, aftercare plans at length and discussed medication changes initiated so far. REVIEW OF SYSTEMS: No CV, , pulmonary, eye system symptoms on review. Compliant with medications and assessment, restless, tearful, agitated at times. MENTAL STATUS EXAM: Oriented to herself, again did not remember seeing me before even though I have seen her every day. Insight, judgment, recent and remote memory, attention, concentration, fund of knowledge poor, consistent with her diagnosis mentioned in my initial note. PLAN: Continue current psychotropics as mentioned in my initial note. Adjust further as clinically indicated. MAN Quinten BHATT MD DR: ALICIA/shanon JOB#: [id number] / [id number]
--- NOTE | 2016-07-11 02:12 | PN ---
DATE: 07/09/2016 PSYCHIATRIC PROGRESS NOTE This is a late entry of 07/09/2016. Covers elements not covered in my initial note. SUBJECTIVE: Temperature 97.1, BP 115/69, pulse 85, respirations 18. The patient remains labile, had a "bad day" per nursing report. Received Atarax at 9:00 a.m., Zyprexa at 3:30 p.m. agitated, exit seeking, refusing medications, delusional thoughts. She was leaving with 3 women, exit seeking. REVIEW OF SYSTEMS: No CV, , eye, ENT or pulmonary system symptoms on review. Reliability poor. MENTAL STATUS EXAM: Oriented to herself. Insight, judgment, recent and remote memory, attention, concentration, fund of knowledge poor, consistent with her diagnosis mentioned in my initial note. IMPRESSION: Major neurocognitive disorder, Alzheimer, vascular with depression, delusion, behavioral disturbance. Rest diagnoses unchanged. PLAN: Continue Benadryl, hydroxyzine, Celexa, Remeron, Ativan p.r.n., trazodone, Risperdal 0.25 mg twice a day, we will increase to 3 times a day. Adjust further as clinically indicated. CAITLYN BHATT MD DR: ALICIA/shanon JOB#: [id number] / [id number]
[2016-07-11] MEDS: CITALOPRAM 10 MG TABLET. PO SCH (08:31)
[2016-07-11] MEDS: DOCUSATE CALCIUM 240 MG CAPSULE PO SCH (08:31)
[2016-07-11] MEDS: LISINOPRIL 20 MG TABLET PO SCH (08:31)
[2016-07-11] MEDS: busPIRone 5 MG TABLET. PO SCH ×3 (08:31→19:51)
[2016-07-11] MEDS: NICOTINE 21MG PATCH. TD SCH (08:31)
[2016-07-11] MEDS: risperiDONE 0.25 MG TABLET. PO SCH ×3 (08:32→19:51)
[2016-07-11] MEDS: fentaNYL 12MCG/HR 1 PATCH PATCH TD SCH (08:36)
--- NOTE | 2016-07-11 14:59 | NUR ---
Behavior Intervention Response and Plan: BIRP Note: Behavior: Assumed Care of patient, patient located in Hallway at shift change. Patient exhibited the following behavior Disorganized, Anxious, Restless. Brief assessment on rounds of vital signs, medication needs, lab studies, and pain. Treatment plan problems . Intervention: Patient assessed and the following interventions initiated safety checks 15 Minute Checks Head to toe Assessment , Medications , Nutrition. Response: After interactions and interventions patient responded in the following manner, Wandering , Restless ,Compliant. Continue to assess behaviors and condition will continue to monitor throughout the shift as needed. 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 Continue to assess patient for changes in above assessment. Monitor for medication needs, pain, and safety concerns. Hourly rounding performed to ensure safe environment.
[2016-07-11 16:12] VITALS: BP 117/66
--- NOTE | 2016-07-11 19:41 | NUR ---
pt up adl to meals and day room. difficulty getting pt to take meds in am. stating she already had them. took all except buspar. son here at noon. gave afternoon meds while family here. pleasant in [place].
[2016-07-11] MEDS: traZODone 50 MG TABLET. PO SCH (19:51)
[2016-07-11] MEDS: MIRTAZAPINE 15 MG TABLET PO SCH (19:51)
[2016-07-11] MEDS: HYDROcodone/APAP 5/325MG 1 TAB TABLET PO PRN (19:51)
--- NOTE | 2016-07-11 20:00 | NUR ---
Nursing Note: Pt c/o back/hip pain. PRN Lortab administered as ordered which pt took w/o difficulty. Pt however did not want to take the rest of her scheduled medications. HS meds were administered crushed in pudding.
--- NOTE | 2016-07-11 22:00 | PDOC ---
Exam Yaya Demential Exam: Yaya Note: Please also refer to the separate dictated note~for this date of service dictated separately.~Patient seen individually. Discussed the patient with Nursing staff reviewed the chart.~Reviewed interim history and current functioning. Reviewed vital signs,~Labs/ Radiology~and current medications noted below. Continue current treatment with the changes noted in the dictated addendum note Assessment: Vital Signs: Vital Signs Date Time Temp Pulse Resp B/P Pulse Ox O2 Delivery O2 Flow Rate FiO2 07/11/16 20:51 18 96 Room Air 07/11/16 16:12 98.8 73 117/66 I&O Intake and Output 07/11/16 07:00 Intake Total 720 ml Balance 720 ml Intake Oral 720 ml Current Medications: Meds: Current Medications Diphenhydramine HCl (Benadryl) 25 mg Q6HRS PO ; Start 07/01/16 at 18:00; Stop at 18:00; Status DC Hydroxyzine HCl (Atarax) 25 mg PRN Q6HRS PRN PO ITCHING Last administered on 01:19; Start 07/01/16 at 15:15; Stop 07/06/16 at 04:21; Status DC Lisinopril (Prinivil) 20 mg DAILY PO Last administered on 07/11/16 08:31; Start 07/02/16 at 09:00 Lorazepam (Ativan) 0.5 mg PRN Q4HRS PRN PO ANXIETY / AGITATION Last administered on 07/02/16 21:07; Start 07/01/16 at 15:15; Stop 07/02/16 at 21:44 ; Status DC Nicotine (Nicoderm Cq 21mg) 1 patch DAILY TD Last administered on 07/11/16 08: 31; Start 07/02/16 at 09:00 Lorazepam (Ativan) 0.5 mg PRN Q4HRS PRN IV ANXIETY / AGITATION; Start 07/01/16 at 15:15; Stop 07/01/16 at 19:14; Status DC Diphenhydramine HCl (Benadryl) 25 mg PRN Q6HRS PRN IVP ITCHING; Start 07/01/16 at 15:15; Stop 07/01/16 at 19:14; Status DC Haloperidol Lactate (Haldol) 5 mg PRN Q6HRS PRN IM AGITATION; Start 07/01/16 at 15:15; Stop 07/01/16 at 19:14; Status DC Diphenhydramine HCl (Benadryl) 25 mg PRN Q6HRS PRN PO ITCHING Last administered on 07/01/16 20:56; Start 07/01/16 at 18:00 Acetaminophen/ Hydrocodone Bitart (Lortab 5/325) 1 tab PRN BID PRN PO PAIN Last administered on 07/11/16 19:51; Start 07/02/16 at 21:45 Olanzapine (Zyprexa Zydis) 2.5 mg PRN Q2HR PRN PO PSYCHOSIS Last administered on 07/10/16 19:30; Start 07/02/16 at 21:45 Mirtazapine (Remeron) 15 mg QHS PO Last administered on 07/11/16 19:51; Start 07/03/16 at 21:00 Citalopram Hydrobromide (Celexa) 10 mg DAILY PO Last administered on 07/11/16 08:31; Start 07/03/16 at 09:00 Risperidone (Risperdal) 0.25 mg BID PO Last administered on 07/10/16 08:54; Start 07/03/16 at 21:00; Stop 07/10/16 at 15:18; Status DC Docusate Calcium (Surfak) 240 mg DAILY PO Last administered on 07/11/16 08:31; Start 07/04/16 at 21:00 Magnesium Hydroxide (Milk Of Magnesia) 2,400 mg PRN QHS PRN PO CONSTIPATION; Start 07/04/16 at 18:15 Trazodone HCl (Desyrel) 50 mg QHS PO Last administered on 07/11/16 19:51; Start 07/05/16 at 21:00 Trazodone HCl (Desyrel) 50 mg PRN QHS PRN PO INSOMNIA Last administered on 07/09 22:03; Start 07/05/16 at 20:45 Hydroxyzine HCl (Atarax) 50 mg PRN Q2HR PRN PO Psychosis Last administered on 03:04; Start 07/06/16 at 04:30 Fentanyl (Duragesic 12mcg/ Hr) 1 patch Q3DAYS TD Last administered on 07/11/16 08:36; Start 07/08/16 at 18:30 Risperidone (Risperdal) 0.25 mg TID PO Last administered on 07/11/16 19:51; Start 07/10/16 at 21:00 Buspirone HCl (Buspar) 5 mg TID PO Last administered on 07/11/16 19:51; Start 07/10/16 at 21:00 Active Scripts Active Lisinopril 20 Mg Tablet 1 Tab PO DAILY NICODERM CQ 21mg (Nicotine) 1 Each Patch.td24 1 Patch TP DAILY Lorazepam 0.5 Mg Tablet 1 Tab PO Q4HRS PRN Hydroxyzine Hcl 25 Mg Tablet 1 Tab PO Q6HRS PRN Benadryl (Diphenhydramine Hcl) 25 Mg Capsule 1 Cap PO Q6HRS Diagnosis: Problems: (1) Anxiety disorder (2) Impulse control disorder (3) Dementia, vascular, with delusions (4) Dementia, vascular, with depression (5) Dementia in Alzheimer's disease with delusions (6) Dementia in Alzheimer's disease with depression CAITLYN BHATT MD Jul 11, 2016 21:59
--- NOTE | 2016-07-11 22:41 | NUR ---
Behavior Intervention Response and Plan: BIRP Note: Behavior: Assumed Care of patient, patient located in Hallway at shift change. Patient exhibited the following behavior Wandering, Restless, Anxious. Brief assessment on rounds of vital signs, medication needs, lab studies, and pain. Treatment plan problems 1 and 2. Intervention: Patient assessed and the following interventions initiated safety checks 15 Minute Checks Cognitive Assessment , Head to toe Assessment , Medications. Response: After interactions and interventions patient responded in the following manner, Restless , Interactive ,Resistive. Continue to assess behaviors and condition will continue to monitor throughout the shift as needed. 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 Continue to assess patient for changes in above assessment. Monitor for medication needs, pain, and safety concerns. Hourly rounding performed to ensure safe environment.
[2016-07-11] MEDS: traZODone 50 MG TABLET. PO PRN (23:49)
[2016-07-12] MEDS: hydrOXYzine HCL 25 MG TABLET PO PRN ×2 (00:34→16:11)
--- NOTE | 2016-07-12 00:49 | NUR ---
Pt is restless and wondering the halls. Tried to redirect pt and pt becomes more agitated. PRN given. Will continue to monitor.
[2016-07-12 06:14] VITALS: BP 126/82
[2016-07-12] MEDS: NICOTINE 21MG PATCH. TD SCH (07:14)
[2016-07-12] MEDS: CITALOPRAM 10 MG TABLET. PO SCH (07:14)
[2016-07-12] MEDS: DOCUSATE CALCIUM 240 MG CAPSULE PO SCH (07:14)
[2016-07-12] MEDS: risperiDONE 0.25 MG TABLET. PO SCH ×3 (07:14→19:41)
[2016-07-12] MEDS: LISINOPRIL 20 MG TABLET PO SCH (07:14)
[2016-07-12] MEDS: busPIRone 5 MG TABLET. PO SCH ×3 (07:14→19:41)
[2016-07-12 10:03] LABS: BASO % 0 % (0-3); EOS # 0.4 x10^3/uL (0.0-0.7); EOS % 2 % (0-3); HEMATOCRIT 35.3 % (36.0-47.0); HEMOGLOBIN 11.6 g/dL (12.0-15.5); LYMPH # 3.2 x10^3/uL (1.0-4.8); LYMPH % 19 % (24-48); MEAN CORPUSCULAR HEMOGLOBIN 30 pg (25-35); MEAN CORPUSCULAR HGB CONC 33 g/dL (31-37); MEAN CORPUSCULAR VOLUME 93 fL (79-100); MONO # 1.5 x10^3/uL (0.0-1.1); MONO % 9 % (0-9); NEUT # 12.2 x10^3uL (1.8-7.7); NEUT % 70 % (31-73); PLATELET COUNT 323 x10^3/uL (140-400); RED BLOOD COUNT 3.81 x10^6/uL (3.50-5.40); WHITE BLOOD COUNT 17.3 x10^3/uL (4.0-11.0)
--- NOTE | 2016-07-12 10:10 | NUR ---
Behavior Intervention Response and Plan: BIRP Note: Behavior: Assumed Care of patient, patient located in Hallway at shift change. Patient exhibited the following behavior Disorganized, Anxious, Restless. Brief assessment on rounds of vital signs, medication needs, lab studies, and pain. Treatment plan problems . Intervention: Patient assessed and the following interventions initiated safety checks 15 Minute Checks Head to toe Assessment , Medications , Nutrition. Response: After interactions and interventions patient responded in the following manner, Wandering , Restless ,Compliant. Continue to assess behaviors and condition will continue to monitor throughout the shift as needed. Plan: Continue to monitor Master Treatment Plan for patient's progress toward short term goals of Decreased Agitation, Decreased Anxiety, emt intermediate goals to return to previous living setting vs placement. Continue to assess patient for changes in above assessment. Monitor for medication needs, pain, and safety concerns. Hourly rounding performed to ensure safe environment.
[2016-07-12 10:16] LABS: ALBUMIN 3.2 g/dL (3.4-5.0); ALBUMIN/GLOBULIN RATIO 0.9 (1.0-1.7); CALCIUM 8.7 mg/dL (8.5-10.1); CREATININE 0.8 mg/dL (0.6-1.0); GFR 70.7; POTASSIUM 4.1 mmol/L (3.5-5.1); TOTAL BILIRUBIN 0.3 mg/dL (0.2-1.0); TOTAL PROTEIN 6.7 g/dL (6.4-8.2)
[2016-07-12 10:36] LABS: % EOS 4 % (0-5); % LYMPHS 20 % (24-48); % MONOS 6 % (0-10); % SEGS 70 % (35-66)
[2016-07-12 10:37] LABS: PLT ESTIMATE ADEQUATE (ADEQUATE)
[2016-07-12 15:45] VITALS: BP 157/78
--- NOTE | 2016-07-12 16:00 | NUR ---
notified dr vega of increased white count. pt asymptomatic. no new orders noted.
--- NOTE | 2016-07-12 18:17 | NUR ---
pt up adl to meals. family here at both visiting hours. pt very agitated after each visit. looking for purse and attempting to exit seek after supper. atarax given.
--- NOTE | 2016-07-12 19:14 | PN ---
DATE: 07/10/2016 PSYCHIATRIC PROGRESS NOTE This is a late entry of 07/10/2016 covers elements not covered in my initial note. SUBJECTIVE: Per nursing report, the patient did very poorly the previous night, combative, yelling, screaming through the wet floor sign at a staff member. Slept 4-1/2 hours. Received Zyprexa Zydis p.r.n. at 10:53 and 1437 paranoid, believes someone stolen her purse, care keys, difficult to redirect. REVIEW OF SYSTEMS: No CV, , pulmonary, eye, ENT system symptoms on review. Reliability poor. MENTAL STATUS EXAM: Oriented to herself. Insight, judgment, recent and remote memory, attention, concentration, fund of knowledge poor, consistent with her diagnosis mentioned in my initial note. PLAN: Add BuSpar 5 mg 3 times a day. Continue rest of the psychotropics mentioned in my initial note including Risperdal for now. MAN Quinten BHATT MD DR: ALICIA/shanon JOB#: [id number] / [id number]
[2016-07-12] MEDS: traZODone 50 MG TABLET. PO SCH (19:41)
[2016-07-12] MEDS: MIRTAZAPINE 15 MG TABLET PO SCH (19:41)
--- NOTE | 2016-07-12 19:46 | PN ---
DATE: 07/11/2016 PSYCHIATRIC PROGRESS NOTE This is a late entry for 07/11/2016 covers elements not covered in my initial note. SUBJECTIVE: The patient did reasonably well the morning of 07/11/2016, slept 5-3/4 hours gets resistive to medications, extremely confused, not aggressive; however, but labile, anxious met with the patient's son discussed diagnosis, placement options at some length. REVIEW OF SYSTEMS: No CV, , pulmonary, eye, ENT system symptoms on review. Reliability poor. MENTAL STATUS EXAM: Oriented to herself. Insight, judgment, recent and remote memory, attention, concentration, fund of knowledge poor, consistent with her diagnosis mentioned in my initial note. PLAN: Continue psychotropics mentioned in my initial note including BuSpar which was added. MAN Quinten BHATT MD DR: ALICIA/shanon JOB#: [id number] / [id number]
--- NOTE | 2016-07-12 20:39 | PDOC ---
Exam Yaya Demential Exam: Yaya Note: Please also refer to the separate dictated note~for this date of service dictated separately.~Patient seen individually. Discussed the patient with Nursing staff reviewed the chart.~Reviewed interim history and current functioning. Reviewed vital signs,~Labs/ Radiology~and current medications noted below. Continue current treatment with the changes noted in the dictated addendum note Assessment: Vital Signs: Vital Signs Date Time Temp Pulse Resp B/P Pulse Ox O2 Delivery O2 Flow Rate FiO2 07/12/16 15:45 97.8 91 17 157/78 97 07/11/16 20:51 Room Air I&O Intake and Output 07/12/16 07:00 Intake Total 960 ml Balance 960 ml Intake Oral 960 ml # Bowel Movements 1 Labs: Laboratory Tests Test 07/12/16 09:27 White Blood Count 17.3x10^3/uL (4.0-11.0) H Red Blood Count 3.81x10^6/uL (3.50-5.40) Hemoglobin 11.6g/dL (12.0-15.5) L Hematocrit 35.3% (36.0-47.0) L Mean Corpuscular Volume 93fL (79-100) Mean Corpuscular Hemoglobin 30pg (25-35) Mean Corpuscular Hemoglobin Concent 33g/dL (31-37) Red Cell Distribution Width 16.0% (11.5-14.5) H Platelet Count 323x10^3/uL (140-400) Neutrophils (%) (Auto) 70% (31-73) Lymphocytes (%) (Auto) 19% (24-48) L Monocytes (%) (Auto) 9% (0-9) Eosinophils (%) (Auto) 2% (0-3) Basophils (%) (Auto) 0% (0-3) Neutrophils # (Auto) 12.2x10^3uL (1.8-7.7) H Lymphocytes # (Auto) 3.2x10^3/uL (1.0-4.8) Monocytes # (Auto) 1.5x10^3/uL (0.0-1.1) H Eosinophils # (Auto) 0.4x10^3/uL (0.0-0.7) Basophils # (Auto) 0.0x10^3/uL (0.0-0.2) Segmented Neutrophils % 70% (35-66) H Lymphocytes % 20% (24-48) L Monocytes % 6% (0-10) Eosinophils % 4% (0-5) Platelet Estimate Adequate (ADEQUATE) Sodium Level 148mmol/L (136-145) H Potassium Level 4.1mmol/L (3.5-5.1) Chloride Level 111mmol/L (98-107) H Carbon Dioxide Level 29mmol/L (21-32) Anion Gap 8 (6-14) Blood Urea Nitrogen 21mg/dL (7-20) H Creatinine 0.8mg/dL (0.6-1.0) Estimated GFR (Cockcroft-Gault) 70.7 BUN/Creatinine Ratio 26 (6-20) H Glucose Level 102mg/dL (70-99) H Calcium Level 8.7mg/dL (8.5-10.1) Total Bilirubin 0.3mg/dL (0.2-1.0) Aspartate Amino Transferase (AST) 18U/L (15-37) Alanine Aminotransferase (ALT) 23U/L (14-59) Alkaline Phosphatase 93U/L (46-116) Total Protein 6.7g/dL (6.4-8.2) Albumin 3.2g/dL (3.4-5.0) L Albumin/Globulin Ratio 0.9 (1.0-1.7) L Current Medications: Meds: Current Medications Diphenhydramine HCl (Benadryl) 25 mg Q6HRS PO ; Start 07/01/16 at 18:00; Stop at 18:00; Status DC Hydroxyzine HCl (Atarax) 25 mg PRN Q6HRS PRN PO ITCHING Last administered on 01:19; Start 07/01/16 at 15:15; Stop 07/06/16 at 04:21; Status DC Lisinopril (Prinivil) 20 mg DAILY PO Last administered on 07/12/16 07:14; Start 07/02/16 at 09:00 Lorazepam (Ativan) 0.5 mg PRN Q4HRS PRN PO ANXIETY / AGITATION Last administered on 07/02/16 21:07; Start 07/01/16 at 15:15; Stop 07/02/16 at 21:44 ; Status DC Nicotine (Nicoderm Cq 21mg) 1 patch DAILY TD Last administered on 07/12/16 07: 14; Start 07/02/16 at 09:00 Lorazepam (Ativan) 0.5 mg PRN Q4HRS PRN IV ANXIETY / AGITATION; Start 07/01/16 at 15:15; Stop 07/01/16 at 19:14; Status DC Diphenhydramine HCl (Benadryl) 25 mg PRN Q6HRS PRN IVP ITCHING; Start 07/01/16 at 15:15; Stop 07/01/16 at 19:14; Status DC Haloperidol Lactate (Haldol) 5 mg PRN Q6HRS PRN IM AGITATION; Start 07/01/16 at 15:15; Stop 07/01/16 at 19:14; Status DC Diphenhydramine HCl (Benadryl) 25 mg PRN Q6HRS PRN PO ITCHING Last administered on 07/01/16 20:56; Start 07/01/16 at 18:00 Acetaminophen/ Hydrocodone Bitart (Lortab 5/325) 1 tab PRN BID PRN PO PAIN Last administered on 07/11/16 19:51; Start 07/02/16 at 21:45 Olanzapine (Zyprexa Zydis) 2.5 mg PRN Q2HR PRN PO PSYCHOSIS Last administered on 07/10/16 19:30; Start 07/02/16 at 21:45 Mirtazapine (Remeron) 15 mg QHS PO Last administered on 07/12/16 19:41; Start 07/03/16 at 21:00 Citalopram Hydrobromide (Celexa) 10 mg DAILY PO Last administered on 07/12/16 07:14; Start 07/03/16 at 09:00 Risperidone (Risperdal) 0.25 mg BID PO Last administered on 07/10/16 08:54; Start 07/03/16 at 21:00; Stop 07/10/16 at 15:18; Status DC Docusate Calcium (Surfak) 240 mg DAILY PO Last administered on 07/12/16 07:14; Start 07/04/16 at 21:00 Magnesium Hydroxide (Milk Of Magnesia) 2,400 mg PRN QHS PRN PO CONSTIPATION; Start 07/04/16 at 18:15 Trazodone HCl (Desyrel) 50 mg QHS PO Last administered on 07/12/16 19:41; Start 07/05/16 at 21:00 Trazodone HCl (Desyrel) 50 mg PRN QHS PRN PO INSOMNIA Last administered on 23:49; Start 07/05/16 at 20:45 Hydroxyzine HCl (Atarax) 50 mg PRN Q2HR PRN PO Psychosis Last administered on 16:11; Start 07/06/16 at 04:30 Fentanyl (Duragesic 12mcg/ Hr) 1 patch Q3DAYS TD Last administered on 07/11/16 08:36; Start 07/08/16 at 18:30 Risperidone (Risperdal) 0.25 mg TID PO Last administered on 07/12/16 19:41; Start 07/10/16 at 21:00 Buspirone HCl (Buspar) 5 mg TID PO Last administered on 07/12/16 19:41; Start 07/10/16 at 21:00 Active Scripts Active Lisinopril 20 Mg Tablet 1 Tab PO DAILY NICODERM CQ 21mg (Nicotine) 1 Each Patch.td24 1 Patch TP DAILY Lorazepam 0.5 Mg Tablet 1 Tab PO Q4HRS PRN Hydroxyzine Hcl 25 Mg Tablet 1 Tab PO Q6HRS PRN Benadryl (Diphenhydramine Hcl) 25 Mg Capsule 1 Cap PO Q6HRS Diagnosis: Problems: (1) Encounter for psychological evaluation (2) Anxiety disorder (3) Impulse control disorder (4) Dementia, vascular, with delusions (5) Dementia, vascular, with depression (6) Dementia in Alzheimer's disease with delusions (7) Dementia in Alzheimer's disease with depression CAITLYN BHATT MD Jul 12, 2016 20:38
--- NOTE | 2016-07-12 22:30 | NUR ---
Behavior Intervention Response and Plan: BIRP Note: Behavior: Assumed Care of patient, patient located in Hallway at shift change. Patient exhibited the following behavior Wandering, Restless, Anxious. Brief assessment on rounds of vital signs, medication needs, lab studies, and pain. Treatment plan problems 1 and 2. Intervention: Patient assessed and the following interventions initiated safety checks 15 Minute Checks Cognitive Assessment , Head to toe Assessment , Medications. Response: After interactions and interventions patient responded in the following manner, Restless , Interactive ,Resistive. Continue to assess behaviors and condition will continue to monitor throughout the shift as needed. 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 Continue to assess patient for changes in above assessment. Monitor for medication needs, pain, and safety concerns. Hourly rounding performed to ensure safe environment.
[2016-07-13 06:36] VITALS: BP 110/57
[2016-07-13] MEDS: DOCUSATE CALCIUM 240 MG CAPSULE PO SCH (08:43)
[2016-07-13] MEDS: LISINOPRIL 20 MG TABLET PO SCH (08:43)
[2016-07-13] MEDS: busPIRone 5 MG TABLET. PO SCH ×2 (08:43→12:28)
[2016-07-13] MEDS: CITALOPRAM 10 MG TABLET. PO SCH (08:43)
[2016-07-13] MEDS: risperiDONE 0.25 MG TABLET. PO SCH ×3 (08:43→19:54)
[2016-07-13] MEDS: NICOTINE 21MG PATCH. TD SCH (08:43)
--- NOTE | 2016-07-13 10:50 | NUR ---
THERAPEUTIC RECREATION GROUP NOTE TITLE :Beach Ball Bump and Group Exercise ACTIVITY : Movement/ Exercise GOAL : Increase morale, attention, endurance. Decrease stress/anxiety. DURATION : 45 Minutes RESPONSE : Full participation. Pt. stayed awake the entire time and had great hand-eye coordination. Pt. danced and complimented the music choice. Pt. was slightly confused about a social security check and not having money for lunch.
--- NOTE | 2016-07-13 11:55 | NUR ---
Behavior Intervention Response and Plan: BIRP Note: Behavior: Assumed Care of patient, patient located in Hallway at shift change. Patient exhibited the following behavior Disorganized, Anxious, Restless. Brief assessment on rounds of vital signs, medication needs, lab studies, and pain. Treatment plan problems . Intervention: Patient assessed and the following interventions initiated safety checks 15 Minute Checks Head to toe Assessment , Medications , Nutrition. Response: After interactions and interventions patient responded in the following manner, Wandering , Restless ,Compliant. Continue to assess behaviors and condition will continue to monitor throughout the shift as needed. 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 Continue to assess patient for changes in above assessment. Monitor for medication needs, pain, and safety concerns. Hourly rounding performed to ensure safe environment.
[2016-07-13] MEDS: hydrOXYzine HCL 25 MG TABLET PO PRN (12:28)
[2016-07-13 16:39] VITALS: BP 120/70
--- NOTE | 2016-07-13 16:40 | NUR ---
pt up adl. intermittently irritable. prns utilized. family here to visit. compliant with meds and cares.
[2016-07-13] MEDS: MIRTAZAPINE 15 MG TABLET PO SCH (19:54)
[2016-07-13] MEDS: traZODone 50 MG TABLET. PO SCH (19:54)
[2016-07-13] MEDS: busPIRone 10 MG TABLET. PO SCH (19:58)
[2016-07-13] MEDS: DIVALPROEX 125 MG CAP.SPRINK PO SCH (19:58)
--- NOTE | 2016-07-13 21:06 | PDOC ---
Exam Yaya Demential Exam: Yaya Note: Please also refer to the separate dictated note~for this date of service dictated separately.~Patient seen individually. Discussed the patient with Nursing staff reviewed the chart.~Reviewed interim history and current functioning. Reviewed vital signs,~Labs/ Radiology~and current medications noted below. Continue current treatment with the changes noted in the dictated addendum note Assessment: Vital Signs: Vital Signs Date Time Temp Pulse Resp B/P Pulse Ox O2 Delivery O2 Flow Rate FiO2 07/13/16 16:39 97.7 86 20 120/70 96 Room Air I&O Intake and Output 07/13/16 07:00 Intake Total 960 ml Balance 960 ml Intake Oral 960 ml Current Medications: Meds: Current Medications Diphenhydramine HCl (Benadryl) 25 mg Q6HRS PO ; Start 07/01/16 at 18:00; Stop at 18:00; Status DC Hydroxyzine HCl (Atarax) 25 mg PRN Q6HRS PRN PO ITCHING Last administered on 01:19; Start 07/01/16 at 15:15; Stop 07/06/16 at 04:21; Status DC Lisinopril (Prinivil) 20 mg DAILY PO Last administered on 07/13/16 08:43; Start 07/02/16 at 09:00 Lorazepam (Ativan) 0.5 mg PRN Q4HRS PRN PO ANXIETY / AGITATION Last administered on 07/02/16 21:07; Start 07/01/16 at 15:15; Stop 07/02/16 at 21:44 ; Status DC Nicotine (Nicoderm Cq 21mg) 1 patch DAILY TD Last administered on 07/13/16 08: 43; Start 07/02/16 at 09:00 Lorazepam (Ativan) 0.5 mg PRN Q4HRS PRN IV ANXIETY / AGITATION; Start 07/01/16 at 15:15; Stop 07/01/16 at 19:14; Status DC Diphenhydramine HCl (Benadryl) 25 mg PRN Q6HRS PRN IVP ITCHING; Start 07/01/16 at 15:15; Stop 07/01/16 at 19:14; Status DC Haloperidol Lactate (Haldol) 5 mg PRN Q6HRS PRN IM AGITATION; Start 07/01/16 at 15:15; Stop 07/01/16 at 19:14; Status DC Diphenhydramine HCl (Benadryl) 25 mg PRN Q6HRS PRN PO ITCHING Last administered on 07/01/16 20:56; Start 07/01/16 at 18:00 Acetaminophen/ Hydrocodone Bitart (Lortab 5/325) 1 tab PRN BID PRN PO PAIN Last administered on 07/11/16 19:51; Start 07/02/16 at 21:45 Olanzapine (Zyprexa Zydis) 2.5 mg PRN Q2HR PRN PO PSYCHOSIS Last administered on 07/13/16 15:16; Start 07/02/16 at 21:45 Mirtazapine (Remeron) 15 mg QHS PO Last administered on 07/13/16 19:54; Start 07/03/16 at 21:00 Citalopram Hydrobromide (Celexa) 10 mg DAILY PO Last administered on 07/13/16 08:43; Start 07/03/16 at 09:00 Risperidone (Risperdal) 0.25 mg BID PO Last administered on 07/10/16 08:54; Start 07/03/16 at 21:00; Stop 07/10/16 at 15:18; Status DC Docusate Calcium (Surfak) 240 mg DAILY PO Last administered on 07/13/16 08:43; Start 07/04/16 at 21:00 Magnesium Hydroxide (Milk Of Magnesia) 2,400 mg PRN QHS PRN PO CONSTIPATION; Start 07/04/16 at 18:15 Trazodone HCl (Desyrel) 50 mg QHS PO Last administered on 07/13/16 19:54; Start 07/05/16 at 21:00 Trazodone HCl (Desyrel) 50 mg PRN QHS PRN PO INSOMNIA Last administered on 23:49; Start 07/05/16 at 20:45 Hydroxyzine HCl (Atarax) 50 mg PRN Q2HR PRN PO Psychosis Last administered on 12:28; Start 07/06/16 at 04:30 Fentanyl (Duragesic 12mcg/ Hr) 1 patch Q3DAYS TD Last administered on 07/11/16 08:36; Start 07/08/16 at 18:30 Risperidone (Risperdal) 0.25 mg TID PO Last administered on 07/13/16 19:54; Start 07/10/16 at 21:00 Buspirone HCl (Buspar) 5 mg TID PO Last administered on 07/13/16 12:28; Start 07/10/16 at 21:00; Stop 07/13/16 at 15:32; Status DC Buspirone HCl (Buspar) 10 mg BID PO Last administered on 07/13/16 19:58; Start 07/13/16 at 21:00 Divalproex Sodium (Depakote Sprinkles) 125 mg BID PO Last administered on 19:58; Start 07/13/16 at 21:00 Active Scripts Active Lisinopril 20 Mg Tablet 1 Tab PO DAILY NICODERM CQ 21mg (Nicotine) 1 Each Patch.td24 1 Patch TP DAILY Lorazepam 0.5 Mg Tablet 1 Tab PO Q4HRS PRN Hydroxyzine Hcl 25 Mg Tablet 1 Tab PO Q6HRS PRN Benadryl (Diphenhydramine Hcl) 25 Mg Capsule 1 Cap PO Q6HRS Diagnosis: Problems: (1) Encounter for psychological evaluation (2) Anxiety disorder (3) Impulse control disorder (4) Dementia, vascular, with delusions (5) Dementia, vascular, with depression (6) 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
--- NOTE | 2016-07-13 22:44 | NUR ---
Pt compliant during HS Medications but was agitated and somewhat manic during and after shower this evening. Continued to look for purse and wanting cigarette. Nurse assisted patient to bed along with HS snack per request. Pt resting at this time. Will continue to monitor.
--- NOTE | 2016-07-13 22:45 | NUR ---
Behavior Intervention Response and Plan: BIRP Note: Behavior: Assumed Care of patient, patient located in Day Room at shift change. Patient exhibited the following behavior Wandering, Manic, Anxious. Brief assessment on rounds of vital signs, medication needs, lab studies, and pain. Treatment plan problems . Intervention: Patient assessed and the following interventions initiated safety checks 15 Minute Checks Head to toe Assessment , Medications , Nutrition. Response: After interactions and interventions patient responded in the following manner, Cooperative , Sleeping ,Anxious. Continue to assess behaviors and condition will continue to monitor throughout the shift as needed. 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 Continue to assess patient for changes in above assessment. Monitor for medication needs, pain, and safety concerns. Hourly rounding performed to ensure safe environment.
--- NOTE | 2016-07-13 23:11 | PN ---
DATE: 07/12/2016 This late entry for 07/12/2016 covers elements not covered in my initial note. SUBJECTIVE: The patient remains confused, agitated after the family left, received Atarax and then was calmer. She was quite restless, anxious, hyperverbal as I met with her the evening of 07/12/2016. REVIEW OF SYSTEMS: No CV, , pulmonary, eye, ENT system symptoms on review. Reliability poor. MENTAL STATUS EXAM: Oriented to herself. Insight, judgment, recent and remote memory, attention, concentration, fund of knowledge poor, consistent with her diagnosis as mentioned in my initial note. LABORATORY DATA: Reviewed. PLAN: Continue current psychotropics. Increase BuSpar to 10 mg twice a day for anxiety. Adjust further as clinically indicated. MAN Quinten BHATT MD DR: ALICIA/shanon JOB#: [id number] / [id number]
[2016-07-14 05:48] VITALS: BP 135/83
[2016-07-14] MEDS: risperiDONE 0.25 MG TABLET. PO SCH ×3 (08:29→20:10)
[2016-07-14] MEDS: DOCUSATE CALCIUM 240 MG CAPSULE PO SCH (08:29)
[2016-07-14] MEDS: CITALOPRAM 10 MG TABLET. PO SCH (08:30)
[2016-07-14] MEDS: LISINOPRIL 20 MG TABLET PO SCH (08:30)
[2016-07-14] MEDS: busPIRone 10 MG TABLET. PO SCH ×2 (08:30→20:10)
[2016-07-14] MEDS: DIVALPROEX 125 MG CAP.SPRINK PO SCH ×2 (08:30→20:10)
[2016-07-14] MEDS: NICOTINE 21MG PATCH. TD SCH (08:31)
[2016-07-14] MEDS: fentaNYL 12MCG/HR 1 PATCH PATCH TD SCH (08:33)
--- NOTE | 2016-07-14 11:18 | NUR ---
Patient's WBC trending up, Dr. Hauser aware- UA with C&S if indicated ordered.
--- NOTE | 2016-07-14 11:20 | NUR ---
Behavior Intervention Response and Plan: BIRP Note: Behavior: Assumed Care of patient, patient located in Hallway at shift change. Patient exhibited the following behavior Disorganized, Compliant, Irritable. Brief assessment on rounds of vital signs, medication needs, lab studies, and pain. Treatment plan problems . Intervention: Patient assessed and the following interventions initiated safety checks 15 Minute Checks Cognitive Assessment , Cognitive Assessment , Head to toe Assessment. Response: After interactions and interventions patient responded in the following manner, Calm , Compliant ,Cooperative. Continue to assess behaviors and condition will continue to monitor throughout the shift as needed. 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 Continue to assess patient for changes in above assessment. Monitor for medication needs, pain, and safety concerns. Hourly rounding performed to ensure safe environment.
[2016-07-14] MEDS: HYDROcodone/APAP 5/325MG 1 TAB TABLET PO PRN (13:01)
[2016-07-14] MEDS: CHOLECALCIFEROL (VITAMIN D3) 1,000 UNIT TABLET PO SCH ×2 (13:01→16:58)
[2016-07-14 13:15] LABS: BACTERIA,URINE FEW /HPF (0-FEW); BILIRUBIN,URINE NEG (NEG); CLARITY,URINE CLEAR; COLOR,URINE YELLOW; GLUCOSE,URINE NEG (NEG); NITRITE,URINE NEG (NEG); SQUAMOUS EPITHELIAL CELL,UR MOD /LPF; UROBILINOGEN,URINE 0.2 mg/dL (0.2 mg/dL); WBC,URINE RARE /HPF (0-4)
--- NOTE | 2016-07-14 13:33 | NUR ---
Case management Note Sent packet of referral information to [facility] in [place] to [phone] via fax. Will continue to follow for continued stay and discharge planning.
[2016-07-14 16:17] VITALS: BP 134/81
[2016-07-14] MEDS: MIRTAZAPINE 15 MG TABLET PO SCH (20:10)
[2016-07-14] MEDS: traZODone 50 MG TABLET. PO SCH (20:10)
--- NOTE | 2016-07-14 21:04 | PDOC ---
Exam Yaya Demential Exam: Yaya Note: Please also refer to the separate dictated note~for this date of service dictated separately.~Patient seen individually. Discussed the patient with Nursing staff reviewed the chart.~Reviewed interim history and current functioning. Reviewed vital signs,~Labs/ Radiology~and current medications noted below. Continue current treatment with the changes noted in the dictated addendum note Assessment: Vital Signs: Vital Signs Date Time Temp Pulse Resp B/P Pulse Ox O2 Delivery O2 Flow Rate FiO2 07/14/16 16:17 98.3 66 20 134/81 95 07/14/16 08:33 Room Air I&O Intake and Output 07/14/16 06:59 Intake Total 1880 ml Balance 1880 ml Intake Oral 1880 ml # Voids 2 # Bowel Movements 1 Labs: Laboratory Tests Test 07/14/16 12:45 Urine Collection Type Unknown Urine Color Yellow Urine Clarity Clear Urine pH 5.5 Urine Specific [place] 1.020 Urine Protein Neg (NEG-TRACE) Urine Glucose (UA) Negmg/dL (NEG) Urine Ketones (Stick) Negmg/dL (NEG) Urine Blood Mod (NEG) Urine Nitrite Neg (NEG) Urine Bilirubin Neg (NEG) Urine Urobilinogen Dipstick 0.2mg/dL (0.2 mg/dL) Urine Leukocyte Esterase Neg (NEG) Urine RBC 1-2/HPF (0-2) Urine WBC Rare/HPF (0-4) Urine Squamous Epithelial Cells Mod/LPF Urine Bacteria Few/HPF (0-FEW) Urine Mucus Slight/LPF Current Medications: Meds: Current Medications Diphenhydramine HCl (Benadryl) 25 mg Q6HRS PO ; Start 07/01/16 at 18:00; Stop at 18:00; Status DC Hydroxyzine HCl (Atarax) 25 mg PRN Q6HRS PRN PO ITCHING Last administered on 01:19; Start 07/01/16 at 15:15; Stop 07/06/16 at 04:21; Status DC Lisinopril (Prinivil) 20 mg DAILY PO Last administered on 07/14/16 08:30; Start 07/02/16 at 09:00 Lorazepam (Ativan) 0.5 mg PRN Q4HRS PRN PO ANXIETY / AGITATION Last administered on 07/02/16 21:07; Start 07/01/16 at 15:15; Stop 07/02/16 at 21:44 ; Status DC Nicotine (Nicoderm Cq 21mg) 1 patch DAILY TD Last administered on 07/14/16 08: 31; Start 07/02/16 at 09:00 Lorazepam (Ativan) 0.5 mg PRN Q4HRS PRN IV ANXIETY / AGITATION; Start 07/01/16 at 15:15; Stop 07/01/16 at 19:14; Status DC Diphenhydramine HCl (Benadryl) 25 mg PRN Q6HRS PRN IVP ITCHING; Start 07/01/16 at 15:15; Stop 07/01/16 at 19:14; Status DC Haloperidol Lactate (Haldol) 5 mg PRN Q6HRS PRN IM AGITATION; Start 07/01/16 at 15:15; Stop 07/01/16 at 19:14; Status DC Diphenhydramine HCl (Benadryl) 25 mg PRN Q6HRS PRN PO ITCHING Last administered on 07/01/16 20:56; Start 07/01/16 at 18:00 Acetaminophen/ Hydrocodone Bitart (Lortab 5/325) 1 tab PRN BID PRN PO PAIN Last administered on 07/14/16 13:01; Start 07/02/16 at 21:45 Olanzapine (Zyprexa Zydis) 2.5 mg PRN Q2HR PRN PO PSYCHOSIS Last administered on 07/13/16 15:16; Start 07/02/16 at 21:45 Mirtazapine (Remeron) 15 mg QHS PO Last administered on 07/14/16 20:10; Start 07/03/16 at 21:00 Citalopram Hydrobromide (Celexa) 10 mg DAILY PO Last administered on 07/14/16 08:30; Start 07/03/16 at 09:00 Risperidone (Risperdal) 0.25 mg BID PO Last administered on 07/10/16 08:54; Start 07/03/16 at 21:00; Stop 07/10/16 at 15:18; Status DC Docusate Calcium (Surfak) 240 mg DAILY PO Last administered on 07/14/16 08:29; Start 07/04/16 at 21:00 Magnesium Hydroxide (Milk Of Magnesia) 2,400 mg PRN QHS PRN PO CONSTIPATION; Start 07/04/16 at 18:15 Trazodone HCl (Desyrel) 50 mg QHS PO Last administered on 07/14/16 20:10; Start 07/05/16 at 21:00 Trazodone HCl (Desyrel) 50 mg PRN QHS PRN PO INSOMNIA Last administered on 23:49; Start 07/05/16 at 20:45 Hydroxyzine HCl (Atarax) 50 mg PRN Q2HR PRN PO Psychosis Last administered on 12:28; Start 07/06/16 at 04:30 Fentanyl (Duragesic 12mcg/ Hr) 1 patch Q3DAYS TD Last administered on 07/14/16 08:33; Start 07/08/16 at 18:30 Risperidone (Risperdal) 0.25 mg TID PO Last administered on 07/14/16 20:10; Start 07/10/16 at 21:00 Buspirone HCl (Buspar) 5 mg TID PO Last administered on 07/13/16 12:28; Start 07/10/16 at 21:00; Stop 07/13/16 at 15:32; Status DC Buspirone HCl (Buspar) 10 mg BID PO Last administered on 07/14/16 20:10; Start 07/13/16 at 21:00 Divalproex Sodium (Depakote Sprinkles) 125 mg BID PO Last administered on 20:10; Start 07/13/16 at 21:00 Vitamin D (Vitamin D3) 2,000 unit BIDPCLD PO Last administered on 07/14/16 16: 58; Start 07/14/16 at 12:30 Active Scripts Active Lisinopril 20 Mg Tablet 1 Tab PO DAILY NICODERM CQ 21mg (Nicotine) 1 Each Patch.td24 1 Patch TP DAILY Lorazepam 0.5 Mg Tablet 1 Tab PO Q4HRS PRN Hydroxyzine Hcl 25 Mg Tablet 1 Tab PO Q6HRS PRN Benadryl (Diphenhydramine Hcl) 25 Mg Capsule 1 Cap PO Q6HRS Diagnosis: Problems: (1) Encounter for psychological evaluation (2) Anxiety disorder (3) Impulse control disorder (4) Dementia, vascular, with delusions (5) Dementia, vascular, with depression (6) Dementia in Alzheimer's disease with delusions (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
[2016-07-14] MEDS: traZODone 50 MG TABLET. PO PRN (21:27)
--- NOTE | 2016-07-14 21:30 | NUR ---
Pt anxious, tearful. Staff attempted to redirect several times without success. PRN repeat Trazodone administered as ordered at this time.
--- NOTE | 2016-07-14 22:13 | NUR ---
Behavior Intervention Response and Plan: BIRP Note: Behavior: Assumed Care of patient, patient located in Hallway at shift change. Patient exhibited the following behavior Wandering, Restless, Anxious. Brief assessment on rounds of vital signs, medication needs, lab studies, and pain. Treatment plan problems 1 and 2. Intervention: Patient assessed and the following interventions initiated safety checks 15 Minute Checks Cognitive Assessment , Head to toe Assessment , Medications. Response: After interactions and interventions patient responded in the following manner, Wandering , Restless ,Compliant. Continue to assess behaviors and condition will continue to monitor throughout the shift as needed. 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 Continue to assess patient for changes in above assessment. Monitor for medication needs, pain, and safety concerns. Hourly rounding performed to ensure safe environment.
[2016-07-14] MEDS: hydrOXYzine HCL 25 MG TABLET PO PRN (22:51)
--- NOTE | 2016-07-14 22:51 | NUR ---
Pt continues to be anxious and tearful, does not want to be left alone. Asking to go upstairs. Staff attempted to redirect pt as to the fact that she is in the hospital several times without success. PRN Atarax administered as ordered at this time.
--- NOTE | 2016-07-14 23:52 | NUR ---
Pt becoming increasingly more agitated, pacing halls, cursing in [place], and argumentative with staff at attempts to redirect. PRN Zyprexa Zydia administered at this time.
--- NOTE | 2016-07-15 03:17 | PN ---
DATE: 07/13/2016 PSYCHIATRIC PROGRESS NOTE This is a late entry for 07/13/2016 covers elements not covered in my initial note. SUBJECTIVE: Per nursing report, the patient remains confused, anxious, irritable, and labile at times. REVIEW OF SYSTEMS: No CV, , pulmonary, eye, ENT system symptoms on review. MENTAL STATUS EXAM: Oriented to herself. Insight, judgment, recent and remote memory, attention, concentration, fund of knowledge poor, consistent with her diagnosis. The patient has been irritable, compliant with meds, agitated the family. DIAGNOSIS: Mentioned in my initial note. PLAN: Continue current psychotropics. Start Depakote Sprinkles 125 mg twice a day. Check labs level in 3 days. Adjust further as clinically indicated. MAN Quinten BHATT MD DR: ALICIA/shanon JOB#: [id number] / [id number]
--- NOTE | 2016-07-15 03:30 | NUR ---
Pt p, wandering up and down hallways, yelling for her granddaughter. Pt crying, yelling, becoming increasingly more agitated despite attempts to redirect by staff several times. Pt re-oriented to the fact she is in the hospital but pt states "this is not the hospital, this is my house. Where is AJ, my grand-daughter?" PRN Sara Ryder administered at this time.
[2016-07-15 09:21] VITALS: BP 124/76
[2016-07-15] MEDS: DIVALPROEX 125 MG CAP.SPRINK PO SCH ×2 (09:23→19:18)
[2016-07-15] MEDS: LISINOPRIL 20 MG TABLET PO SCH (09:23)
[2016-07-15] MEDS: CHOLECALCIFEROL (VITAMIN D3) 1,000 UNIT TABLET PO SCH ×2 (09:23→16:46)
[2016-07-15] MEDS: CITALOPRAM 10 MG TABLET. PO SCH (09:23)
[2016-07-15] MEDS: busPIRone 10 MG TABLET. PO SCH ×3 (09:23→21:36)
[2016-07-15] MEDS: DOCUSATE CALCIUM 240 MG CAPSULE PO SCH (09:23)
[2016-07-15] MEDS: risperiDONE 0.25 MG TABLET. PO SCH ×4 (09:23→21:37)
[2016-07-15] MEDS: NICOTINE 21MG PATCH. TD SCH (09:24)
--- NOTE | 2016-07-15 10:00 | NUR ---
Patient visited with hole digger this AM and discussed her son becoming DPOA, patient responded "I wont say yes or no" but was presented the documents.
--- NOTE | 2016-07-15 13:03 | NUR ---
Behavior Intervention Response and Plan: BIRP Note: Behavior: Assumed Care of patient, patient located in Hallway at shift change. Patient exhibited the following behavior Calm, Irritable, Compliant. Brief assessment on rounds of vital signs, medication needs, lab studies, and pain. Treatment plan problems . Intervention: Patient assessed and the following interventions initiated safety checks 15 Minute Checks Cognitive Assessment , Head to toe Assessment , Medications. Response: After interactions and interventions patient responded in the following manner, Calm , Compliant ,Cooperative. Continue to assess behaviors and condition will continue to monitor throughout the shift as needed. 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 Continue to assess patient for changes in above assessment. Monitor for medication needs, pain, and safety concerns. Hourly rounding performed to ensure safe environment.
--- NOTE | 2016-07-15 13:15 | NUR ---
THERAPEUTIC RECREATION GROUP NOTE TITLE :Complete the popular idiom ACTIVITY : Cognitive Stimulation GOAL : Stimulate memory, Increase problem solving DURATION : 60 minutes RESPONSE : Full participation. Pt. needed explanations, clues, and guidance to complete idioms. Pt. was agreeable and made jokes occasionally.
[2016-07-15] MEDS ORDERED: traZODone 100 MG TABLET. PO SCH (13:45)
--- NOTE | 2016-07-15 14:38 | NUR ---
TIA had message from [place] as a referral packet had been sent to facility regarding pt . Requested for more information to be sent. TIA sent information requested and called left message for [place] in Admissions.
--- NOTE | 2016-07-15 14:41 | NUR ---
Pt daughter in law participated in treatment team, she states they are still working on Medicaid application and asked this conventional underwriter to send information to [facility] as well.
[2016-07-15] MEDS: HYDROcodone/APAP 5/325MG 1 TAB TABLET PO PRN (15:19)
--- NOTE | 2016-07-15 15:20 | NUR ---
Patient holding her lower back, facial grimacing noted. Patient reported pain in her lower back, PRN lortab 5/325mg given, will continue to monitor.
[2016-07-15 16:22] VITALS: BP 133/75
--- NOTE | 2016-07-15 17:47 | NUR ---
Patient becoming anxious and agitated, wanting to know where her purse and cigarettes are, PRN zydis given, will continue to monitor.
[2016-07-15] MEDS: hydrOXYzine HCL 25 MG TABLET PO PRN ×2 (19:11→21:36)
[2016-07-15] MEDS: traZODone 100 MG TABLET. PO SCH ×2 (19:18→21:37)
[2016-07-15] MEDS: MIRTAZAPINE 15 MG TABLET PO SCH ×2 (19:18→21:37)
--- NOTE | 2016-07-15 19:50 | NUR ---
Pt anxious and tearful with escalating agitation. Pt yelling in day room, cursing at staff in Arabic. Pt became combative with attempts at redirection. PRN Zyprexa Zydis administered as ordered at this time.
--- NOTE | 2016-07-15 21:09 | PDOC ---
Exam Yaya Demential Exam: Yaya Note: Please also refer to the separate dictated note~for this date of service dictated separately.~Patient seen individually. Discussed the patient with Nursing staff reviewed the chart.~Reviewed interim history and current functioning. Reviewed vital signs,~Labs/ Radiology~and current medications noted below. Continue current treatment with the changes noted in the dictated addendum note Assessment: Vital Signs: Vital Signs Date Time Temp Pulse Resp B/P Pulse Ox O2 Delivery O2 Flow Rate FiO2 07/15/16 16:22 97.9 75 16 133/75 98 07/15/16 09:21 Room Air I&O Intake and Output 07/15/16 07:00 Intake Total 1400 ml Balance 1400 ml Intake Oral 1400 ml # Voids 1 # Bowel Movements 2 Current Medications: Meds: Current Medications Diphenhydramine HCl (Benadryl) 25 mg Q6HRS PO ; Start 07/01/16 at 18:00; Stop at 18:00; Status DC Hydroxyzine HCl (Atarax) 25 mg PRN Q6HRS PRN PO ITCHING Last administered on 01:19; Start 07/01/16 at 15:15; Stop 07/06/16 at 04:21; Status DC Lisinopril (Prinivil) 20 mg DAILY PO Last administered on 07/15/16 09:23; Start 07/02/16 at 09:00 Lorazepam (Ativan) 0.5 mg PRN Q4HRS PRN PO ANXIETY / AGITATION Last administered on 07/02/16 21:07; Start 07/01/16 at 15:15; Stop 07/02/16 at 21:44 ; Status DC Nicotine (Nicoderm Cq 21mg) 1 patch DAILY TD Last administered on 07/15/16 09: 24; Start 07/02/16 at 09:00 Lorazepam (Ativan) 0.5 mg PRN Q4HRS PRN IV ANXIETY / AGITATION; Start 07/01/16 at 15:15; Stop 07/01/16 at 19:14; Status DC Diphenhydramine HCl (Benadryl) 25 mg PRN Q6HRS PRN IVP ITCHING; Start 07/01/16 at 15:15; Stop 07/01/16 at 19:14; Status DC Haloperidol Lactate (Haldol) 5 mg PRN Q6HRS PRN IM AGITATION; Start 07/01/16 at 15:15; Stop 07/01/16 at 19:14; Status DC Diphenhydramine HCl (Benadryl) 25 mg PRN Q6HRS PRN PO ITCHING Last administered on 07/01/16 20:56; Start 07/01/16 at 18:00 Acetaminophen/ Hydrocodone Bitart (Lortab 5/325) 1 tab PRN BID PRN PO PAIN Last administered on 07/15/16 15:19; Start 07/02/16 at 21:45 Olanzapine (Zyprexa Zydis) 2.5 mg PRN Q2HR PRN PO PSYCHOSIS Last administered on 07/15/16 19:47; Start 07/02/16 at 21:45 Mirtazapine (Remeron) 15 mg QHS PO Last administered on 07/14/16 20:10; Start 07/03/16 at 21:00 Citalopram Hydrobromide (Celexa) 10 mg DAILY PO Last administered on 07/15/16 09:23; Start 07/03/16 at 09:00 Risperidone (Risperdal) 0.25 mg BID PO Last administered on 07/10/16 08:54; Start 07/03/16 at 21:00; Stop 07/10/16 at 15:18; Status DC Docusate Calcium (Surfak) 240 mg DAILY PO Last administered on 07/15/16 09:23; Start 07/04/16 at 21:00 Magnesium Hydroxide (Milk Of Magnesia) 2,400 mg PRN QHS PRN PO CONSTIPATION; Start 07/04/16 at 18:15 Trazodone HCl (Desyrel) 50 mg QHS PO Last administered on 07/14/16 20:10; Start 07/05/16 at 21:00; Stop 07/15/16 at 13:52; Status DC Trazodone HCl (Desyrel) 50 mg PRN QHS PRN PO INSOMNIA Last administered on 21:27; Start 07/05/16 at 20:45; Stop 07/15/16 at 13:52; Status DC Hydroxyzine HCl (Atarax) 50 mg PRN Q2HR PRN PO Psychosis Last administered on 22:51; Start 07/06/16 at 04:30 Fentanyl (Duragesic 12mcg/ Hr) 1 patch Q3DAYS TD Last administered on 07/14/16 08:33; Start 07/08/16 at 18:30 Risperidone (Risperdal) 0.25 mg TID PO Last administered on 07/15/16 19:18; Start 07/10/16 at 21:00 Buspirone HCl (Buspar) 5 mg TID PO Last administered on 07/13/16 12:28; Start 07/10/16 at 21:00; Stop 07/13/16 at 15:32; Status DC Buspirone HCl (Buspar) 10 mg BID PO Last administered on 07/15/16 09:23; Start 07/13/16 at 21:00 Divalproex Sodium (Depakote Sprinkles) 125 mg BID PO Last administered on 19:18; Start 07/13/16 at 21:00 Vitamin D (Vitamin D3) 2,000 unit BIDPCLD PO Last administered on 07/15/16 16: 46; Start 07/14/16 at 12:30 Trazodone HCl (Desyrel) 100 mg QHS PO ; Start 07/15/16 at 21:00 Trazodone HCl (Desyrel) 100 mg PRN QHS PO ; Start 07/15/16 at 13:45 Active Scripts Active Lisinopril 20 Mg Tablet 1 Tab PO DAILY NICODERM CQ 21mg (Nicotine) 1 Each Patch.td24 1 Patch TP DAILY Lorazepam 0.5 Mg Tablet 1 Tab PO Q4HRS PRN Hydroxyzine Hcl 25 Mg Tablet 1 Tab PO Q6HRS PRN Benadryl (Diphenhydramine Hcl) 25 Mg Capsule 1 Cap PO Q6HRS Diagnosis: Problems: (1) Encounter for psychological evaluation (2) Anxiety disorder (3) Impulse control disorder (4) Dementia, vascular, with delusions (5) Dementia, vascular, with depression (6) Dementia in Alzheimer's disease with delusions (7) Dementia in Alzheimer's disease with depression CAITLYN BHATT MD Jul 15, 2016 21:09
--- NOTE | 2016-07-15 21:36 | NUR ---
Pt continues to be anxious and tearful. Requesting staff drive her home, does not know why she is here or who brought her in. Staff attempted several times to redirect without success. PRN Atarax administered as ordered at this time.
--- NOTE | 2016-07-15 22:37 | NUR ---
Behavior Intervention Response and Plan: BIRP Note: Behavior: Assumed Care of patient, patient located in Hallway at shift change. Patient exhibited the following behavior Wandering, Restless, Anxious. Brief assessment on rounds of vital signs, medication needs, lab studies, and pain. Treatment plan problems 1 and 2. Intervention: Patient assessed and the following interventions initiated safety checks 15 Minute Checks Cognitive Assessment , Head to toe Assessment , Medications. Response: After interactions and interventions patient responded in the following manner, Disorganized , Restless ,Anxious. Continue to assess behaviors and condition will continue to monitor throughout the shift as needed. 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 Continue to assess patient for changes in above assessment. Monitor for medication needs, pain, and safety concerns. Hourly rounding performed to ensure safe environment.
--- NOTE | 2016-07-15 23:00 | NUR ---
Pt continues to wander up and down hallways and in/out of other pt rooms. Repeat Trazodone administered as ordered at this time.
[2016-07-15] MEDS: traZODone 100 MG TABLET. PO PRN (23:02)
--- NOTE | 2016-07-15 23:44 | NUR ---
Pt wandering up and down hallways, pacing, yelling out, "Edgar". Pt wandering in/out of other pt rooms searching for Edgar and attempting to wake up another male pt thinking he was Edgar. Staff unable to redirect, several attempts made and were unsuccessful. PRN Zyprexa Zydis administered at this time and pt secured in day room/ West hallway for safety.
--- NOTE | 2016-07-15 23:57 | PN ---
DATE: 07/14/2016 PSYCHIATRIC PROGRESS NOTE This is a late entry for 07/14/2016, covers elements not covered in my initial note. SUBJECTIVE: Overall, the patient remains confused, anxious, restless, at times less agitated, less seeking, less asking for family and less repetitive. WBC is elevated at 17.3. We will defer to Dr. Hauser from medical followup. She was agitated the previous night, getting into the room of other patients, oblivious of what she was doing. REVIEW OF SYSTEMS: No CV, , eye, ENT or pulmonary system symptoms on review as I met with her individually. MENTAL STATUS EXAM: Oriented to herself. Insight, judgment, recent and remote memory, attention, concentration, fund of knowledge poor, consistent with her diagnosis as mentioned in my initial note. LABORATORY DATA: Reviewed. IMPRESSION: Major neurocognitive disorder, Alzheimer, vascular with depression, delusion, behavioral disturbance. Rest diagnosis unchanged. PLAN: Continue psychotropics as mentioned in my initial note. Adjust further as clinically indicated. MAN Quinten BHATT MD DR: ALICIA/shanon JOB#: [id number] / [id number]
[2016-07-16] MEDS ORDERED: QUEtiapine 50 MG TABLET. PO ONE (00:30)
--- NOTE | 2016-07-16 00:30 | NUR ---
Pt agitation escalating. Pt becoming verbally and physically aggressive. Pt attempting to hit and kick staff, yelling/screaming in French. Attempted to place pt in Quiet room for de-escalation without success, pt behaviors continue to escalate. Call placed to Dr. Sanchez for further recommendations. Order received for Seroquel 50mg now and may repeat in 1 hour if necessary. Orders processed and initiated.
--- NOTE | 2016-07-16 04:52 | NUR ---
Pt pacing hallway and day room, beginning to speak in rapid Maori, believes one of the nurses took her money and [place] it [place] the [place] and was using her "machine". PRN Zyprexa Cliffis administered as ordered at this time.
[2016-07-16 05:09] VITALS: BP 161/77
--- NOTE | 2016-07-16 05:26 | NUR ---
Pt has not slept at all this shift. Refuses to lie down in bed or in the day room.
[2016-07-16 07:52] LABS: BASO # 0.1 x10^3/uL (0.0-0.2); BASO % 1 % (0-3); EOS # 0.2 x10^3/uL (0.0-0.7); EOS % 2 % (0-3); HEMATOCRIT 36.1 % (36.0-47.0); HEMOGLOBIN 11.8 g/dL (12.0-15.5); LYMPH # 3.8 x10^3/uL (1.0-4.8); LYMPH % 26 % (24-48); MEAN CORPUSCULAR HEMOGLOBIN 30 pg (25-35); MEAN CORPUSCULAR HGB CONC 33 g/dL (31-37); MEAN CORPUSCULAR VOLUME 93 fL (79-100); MONO # 1.7 x10^3/uL (0.0-1.1); MONO % 12 % (0-9); NEUT % 61 % (31-73); PLATELET COUNT 389 x10^3/uL (140-400); RED BLOOD COUNT 3.89 x10^6/uL (3.50-5.40); RED CELL DISTRIBUTION WIDTH 15.5 % (11.5-14.5); WHITE BLOOD COUNT 14.8 x10^3/uL (4.0-11.0)
[2016-07-16 08:03] LABS: ALBUMIN 3.5 g/dL (3.4-5.0); ALBUMIN/GLOBULIN RATIO 0.9 (1.0-1.7); ALK PHOS 101 U/L (46-116); ALT (SGPT) 31 U/L (14-59); ANION GAP 6 (6-14); AST (SGOT) 19 U/L (15-37); BLOOD UREA NITROGEN 15 mg/dL (7-20); BUN/CREATININE RATIO 21 (6-20); CALCIUM 8.9 mg/dL (8.5-10.1); CARBON DIOXIDE 29 mmol/L (21-32); CHLORIDE 107 mmol/L (98-107); CREATININE 0.7 mg/dL (0.6-1.0); GFR 82.5; GLUCOSE 95 mg/dL (70-99); POTASSIUM 4.1 mmol/L (3.5-5.1); SODIUM 142 mmol/L (136-145); TOTAL BILIRUBIN 0.2 mg/dL (0.2-1.0); TOTAL PROTEIN 7.5 g/dL (6.4-8.2)
[2016-07-16 08:05] LABS: VAL ACID 21 mcg/mL (50-100)
[2016-07-16] MEDS: DOCUSATE CALCIUM 240 MG CAPSULE PO SCH (09:19)
[2016-07-16] MEDS: CITALOPRAM 10 MG TABLET. PO SCH (09:20)
[2016-07-16] MEDS: DIVALPROEX 125 MG CAP.SPRINK PO SCH ×2 (09:20→20:13)
[2016-07-16] MEDS: LISINOPRIL 20 MG TABLET PO SCH (09:20)
[2016-07-16] MEDS: HYDROcodone/APAP 5/325MG 1 TAB TABLET PO PRN ×2 (09:20→20:28)
[2016-07-16] MEDS: NICOTINE 21MG PATCH. TD SCH (09:20)
[2016-07-16] MEDS: busPIRone 10 MG TABLET. PO SCH ×2 (09:20→20:13)
--- NOTE | 2016-07-16 09:57 | NUR ---
Behavior Intervention Response and Plan: BIRP Note: Behavior: Assumed Care of patient, patient located in Hallway at shift change. Patient exhibited the following behavior Wandering, Exit Seeking, Anxious. Brief assessment on rounds of vital signs, medication needs, lab studies, and pain. Treatment plan problems . Intervention: Patient assessed and the following interventions initiated safety checks 15 Minute Checks Cognitive Assessment , Head to toe Assessment , Medications. Response: After interactions and interventions patient responded in the following manner, Calm , Compliant ,Cooperative. Continue to assess behaviors and condition will continue to monitor throughout the shift as needed. Plan: Continue to monitor Master Treatment Plan for patient's progress toward short term goals of Decreased Anxiety, Decreased Agitation, penitentiary goals to return to previous living setting vs placement. Continue to assess patient for changes in above assessment. Monitor for medication needs, pain, and safety concerns. Hourly rounding performed to ensure safe environment.
--- NOTE | 2016-07-16 11:00 | NUR ---
THERAPEUTIC RECREATION GROUP NOTE TITLE :[place] ACTIVITY : Activities and Games GOAL : Increase socialization, Decrease wandering, Increase direction following, Stimulate memory DURATION : 45 Minutes RESPONSE : No participation. Pt. was making a bed and wandering the halls.
[2016-07-16] MEDS: CHOLECALCIFEROL (VITAMIN D3) 1,000 UNIT TABLET PO SCH ×2 (11:36→16:22)
--- NOTE | 2016-07-16 12:22 | NUR ---
Pt continues to wander the hallways and exit-seek, asking for her purse. No agitation noted and she is redirectable, but she refuses to lay in bed and take a nap, and denies being awake all night (it was reported to this nurse she did not sleep at all overnight), will continue to monitor.
[2016-07-16] MEDS: risperiDONE 0.25 MG TABLET. PO SCH ×2 (13:41→19:25)
--- NOTE | 2016-07-16 13:45 | NUR ---
THERAPEUTIC RECREATION GROUP NOTE TITLE :Balloon Bop with Noodles ACTIVITY : Activities and Games GOAL : Increase socialization and alertness. Maintain/improve mental and physical functioning. DURATION : 45 Minutes RESPONSE : No participation. Pt. was in her room with no lights on and curtains closed. Pt. was making her bed and did not want to join.
--- NOTE | 2016-07-16 15:11 | NUR ---
Patient continues to wander and look for her purse, is speaking in setswana and appears extremely tired. Staff has attempted multiple times to redirect her to her room so she can sleep, but she refuses. Nurse attempted to administer PRN hydroxyzine 50mg, but she refused. Will re-approach at another time and continue to monitor. Addendum: 07/16/16 at 1653 by RICHARD HERNANDEZ RN Patient agreed to take PRN hydroxyzine 50mg and is now laying in the quiet room, but is not sleeping at this time, will continue to monitor.
[2016-07-16 15:46] VITALS: BP 143/85
[2016-07-16] MEDS: hydrOXYzine HCL 25 MG TABLET PO PRN (16:22)
[2016-07-16] MEDS: traZODone 100 MG TABLET. PO SCH ×2 (19:14→20:13)
[2016-07-16] MEDS: TEMAZEPAM 15 MG CAPSULE PO PRN ×2 (19:14→20:12)
--- NOTE | 2016-07-16 19:30 | NUR ---
Pt secured in [facility], agitated, pacing, yelling for "Edgar" and "Erasmo", speaking in rapid [place] and cursing. Pt tore apart a pillow and removed the stuffing from the inside. Pt became increasingly more agitated and aggressive when staff took pillows away from her. Unable to redirect. PRN Zyprexa Zydis administered as ordered.
--- NOTE | 2016-07-16 20:12 | NUR ---
PRN Restoril administered as ordered hidden in ice cream.
[2016-07-16] MEDS: MIRTAZAPINE 15 MG TABLET PO SCH (20:13)
--- NOTE | 2016-07-16 21:21 | PDOC ---
Exam Yaya Demential Exam: Yaya Note: Please also refer to the separate dictated note~for this date of service dictated separately.~Patient seen individually. Discussed the patient with Nursing staff reviewed the chart.~Reviewed interim history and current functioning. Reviewed vital signs,~Labs/ Radiology~and current medications noted below. Continue current treatment with the changes noted in the dictated addendum note Assessment: Vital Signs: Vital Signs Date Time Temp Pulse Resp B/P Pulse Ox O2 Delivery O2 Flow Rate FiO2 07/16/16 20:28 20 96 Room Air 07/16/16 15:46 143/85 07/16/16 09:20 79 07/16/16 05:09 97.1 I&O Intake and Output 07/16/16 07:00 Intake Total 960 ml Balance 960 ml Intake Oral 960 ml # Bowel Movements 1 Labs: Laboratory Tests Test 07/16/16 07:43 White Blood Count 14.8x10^3/uL (4.0-11.0) H Red Blood Count 3.89x10^6/uL (3.50-5.40) Hemoglobin 11.8g/dL (12.0-15.5) L Hematocrit 36.1% (36.0-47.0) Mean Corpuscular Volume 93fL (79-100) Mean Corpuscular Hemoglobin 30pg (25-35) Mean Corpuscular Hemoglobin Concent 33g/dL (31-37) Red Cell Distribution Width 15.5% (11.5-14.5) H Platelet Count 389x10^3/uL (140-400) Neutrophils (%) (Auto) 61% (31-73) Lymphocytes (%) (Auto) 26% (24-48) Monocytes (%) (Auto) 12% (0-9) H Eosinophils (%) (Auto) 2% (0-3) Basophils (%) (Auto) 1% (0-3) Neutrophils # (Auto) 9.0x10^3uL (1.8-7.7) H Lymphocytes # (Auto) 3.8x10^3/uL (1.0-4.8) Monocytes # (Auto) 1.7x10^3/uL (0.0-1.1) H Eosinophils # (Auto) 0.2x10^3/uL (0.0-0.7) Basophils # (Auto) 0.1x10^3/uL (0.0-0.2) Sodium Level 142mmol/L (136-145) Potassium Level 4.1mmol/L (3.5-5.1) Chloride Level 107mmol/L (98-107) Carbon Dioxide Level 29mmol/L (21-32) Anion Gap 6 (6-14) Blood Urea Nitrogen 15mg/dL (7-20) Creatinine 0.7mg/dL (0.6-1.0) Estimated GFR (Cockcroft-Gault) 82.5 BUN/Creatinine Ratio 21 (6-20) H Glucose Level 95mg/dL (70-99) Calcium Level 8.9mg/dL (8.5-10.1) Total Bilirubin 0.2mg/dL (0.2-1.0) Aspartate Amino Transferase (AST) 19U/L (15-37) Alanine Aminotransferase (ALT) 31U/L (14-59) Alkaline Phosphatase 101U/L (46-116) Total Protein 7.5g/dL (6.4-8.2) Albumin 3.5g/dL (3.4-5.0) Albumin/Globulin Ratio 0.9 (1.0-1.7) L Valproic Acid Level 21mcg/mL (50-100) L Valproic Acid Last Dose Date 07/15/16 Valproic Acid Last Dose Time 2100 Current Medications: Meds: Current Medications Diphenhydramine HCl (Benadryl) 25 mg Q6HRS PO ; Start 07/01/16 at 18:00; Stop at 18:00; Status DC Hydroxyzine HCl (Atarax) 25 mg PRN Q6HRS PRN PO ITCHING Last administered on 01:19; Start 07/01/16 at 15:15; Stop 07/06/16 at 04:21; Status DC Lisinopril (Prinivil) 20 mg DAILY PO Last administered on 07/16/16 09:20; Start 07/02/16 at 09:00 Lorazepam (Ativan) 0.5 mg PRN Q4HRS PRN PO ANXIETY / AGITATION Last administered on 07/02/16 21:07; Start 07/01/16 at 15:15; Stop 07/02/16 at 21:44 ; Status DC Nicotine (Nicoderm Cq 21mg) 1 patch DAILY TD Last administered on 07/16/16 09: 20; Start 07/02/16 at 09:00 Lorazepam (Ativan) 0.5 mg PRN Q4HRS PRN IV ANXIETY / AGITATION; Start 07/01/16 at 15:15; Stop 07/01/16 at 19:14; Status DC Diphenhydramine HCl (Benadryl) 25 mg PRN Q6HRS PRN IVP ITCHING; Start 07/01/16 at 15:15; Stop 07/01/16 at 19:14; Status DC Haloperidol Lactate (Haldol) 5 mg PRN Q6HRS PRN IM AGITATION; Start 07/01/16 at 15:15; Stop 07/01/16 at 19:14; Status DC Diphenhydramine HCl (Benadryl) 25 mg PRN Q6HRS PRN PO ITCHING Last administered on 07/01/16 20:56; Start 07/01/16 at 18:00 Acetaminophen/ Hydrocodone Bitart (Lortab 5/325) 1 tab PRN BID PRN PO PAIN Last administered on 07/16/16 20:28; Start 07/02/16 at 21:45 Olanzapine (Zyprexa Zydis) 2.5 mg PRN Q2HR PRN PO PSYCHOSIS Last administered on 07/16/16 19:25; Start 07/02/16 at 21:45 Mirtazapine (Remeron) 15 mg QHS PO Last administered on 07/16/16 20:13; Start 07/03/16 at 21:00 Citalopram Hydrobromide (Celexa) 10 mg DAILY PO Last administered on 07/16/16 09:20; Start 07/03/16 at 09:00 Risperidone (Risperdal) 0.25 mg BID PO Last administered on 07/10/16 08:54; Start 07/03/16 at 21:00; Stop 07/10/16 at 15:18; Status DC Docusate Calcium (Surfak) 240 mg DAILY PO Last administered on 07/16/16 09:19; Start 07/04/16 at 21:00 Magnesium Hydroxide (Milk Of Magnesia) 2,400 mg PRN QHS PRN PO CONSTIPATION; Start 07/04/16 at 18:15 Trazodone HCl (Desyrel) 50 mg QHS PO Last administered on 07/14/16 20:10; Start 07/05/16 at 21:00; Stop 07/15/16 at 13:52; Status DC Trazodone HCl (Desyrel) 50 mg PRN QHS PRN PO INSOMNIA Last administered on 21:27; Start 07/05/16 at 20:45; Stop 07/15/16 at 13:52; Status DC Hydroxyzine HCl (Atarax) 50 mg PRN Q2HR PRN PO Psychosis Last administered on 16:22; Start 07/06/16 at 04:30 Fentanyl (Duragesic 12mcg/ Hr) 1 patch Q3DAYS TD Last administered on 07/14/16 08:33; Start 07/08/16 at 18:30 Risperidone (Risperdal) 0.25 mg TID PO Last administered on 07/16/16 19:25; Start 07/10/16 at 21:00 Buspirone HCl (Buspar) 5 mg TID PO Last administered on 07/13/16 12:28; Start 07/10/16 at 21:00; Stop 07/13/16 at 15:32; Status DC Buspirone HCl (Buspar) 10 mg BID PO Last administered on 07/16/16 20:13; Start 07/13/16 at 21:00 Divalproex Sodium (Depakote Sprinkles) 125 mg BID PO Last administered on 20:13; Start 07/13/16 at 21:00 Vitamin D (Vitamin D3) 2,000 unit BIDPCLD PO Last administered on 07/16/16 16: 22; Start 07/14/16 at 12:30 Trazodone HCl (Desyrel) 100 mg QHS PO Last administered on 07/16/16 20:13; Start 07/15/16 at 21:00 Trazodone HCl (Desyrel) 100 mg PRN QHS PO ; Start 07/15/16 at 13:45; Stop at 23:01; Status DC Trazodone HCl (Desyrel) 100 mg PRN QHS PRN PO INSOMNIA Last administered on 07/15 23:02; Start 07/15/16 at 23:00 Quetiapine Fumarate (SEROquel) 50 mg 1X ONCE PO Last administered on 07/16/16 00:44; Start 07/16/16 at 00:30; Stop 07/16/16 at 00:31; Status DC Temazepam (Restoril) 30 mg PRN QHS PRN PO INSOMNIA Last administered on 20:12; Start 07/16/16 at 18:30 Active Scripts Active Lisinopril 20 Mg Tablet 1 Tab PO DAILY NICODERM CQ 21mg (Nicotine) 1 Each Patch.td24 1 Patch TP DAILY Lorazepam 0.5 Mg Tablet 1 Tab PO Q4HRS PRN Hydroxyzine Hcl 25 Mg Tablet 1 Tab PO Q6HRS PRN Benadryl (Diphenhydramine Hcl) 25 Mg Capsule 1 Cap PO Q6HRS Diagnosis: Problems: (1) Encounter for psychological evaluation (2) Anxiety disorder (3) Impulse control disorder (4) Dementia, vascular, with delusions (5) Dementia, vascular, with depression (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
--- NOTE | 2016-07-16 21:49 | NUR ---
Behavior Intervention Response and Plan: BIRP Note: Behavior: Assumed Care of patient, patient located in Hallway at shift change. Patient exhibited the following behavior Combative, Agitated, Non Compliant. Brief assessment on rounds of vital signs, medication needs, lab studies, and pain. Treatment plan problems 1 and 2. Intervention: Patient assessed and the following interventions initiated safety checks 15 Minute Checks Cognitive Assessment , Head to toe Assessment , Medications. Response: After interactions and interventions patient responded in the following manner, Restless , Wandering ,Drowsy. Continue to assess behaviors and condition will continue to monitor throughout the shift as needed. 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 Continue to assess patient for changes in above assessment. Monitor for medication needs, pain, and safety concerns. Hourly rounding performed to ensure safe environment.
[2016-07-17] MEDS: CITALOPRAM 10 MG TABLET. PO SCH (08:15)
[2016-07-17] MEDS: NICOTINE 21MG PATCH. TD SCH (08:15)
[2016-07-17] MEDS: risperiDONE 0.25 MG TABLET. PO SCH ×4 (08:15→19:50)
[2016-07-17] MEDS: LISINOPRIL 20 MG TABLET PO SCH (08:15)
[2016-07-17] MEDS: DIVALPROEX 125 MG CAP.SPRINK PO SCH ×2 (08:15→19:54)
[2016-07-17] MEDS: DOCUSATE CALCIUM 240 MG CAPSULE PO SCH (08:15)
[2016-07-17] MEDS: busPIRone 10 MG TABLET. PO SCH ×2 (08:15→19:54)
[2016-07-17] MEDS: CHOLECALCIFEROL (VITAMIN D3) 1,000 UNIT TABLET PO SCH ×2 (08:16→16:44)
[2016-07-17] MEDS: fentaNYL 12MCG/HR 1 PATCH PATCH TD SCH (08:17)
--- NOTE | 2016-07-17 09:46 | NUR ---
Behavior Intervention Response and Plan: BIRP Note: Behavior: Assumed Care of patient, patient located in Quiet Room at shift change. Patient exhibited the following behavior Calm, Sleeping, Disorganized. Brief assessment on rounds of vital signs, medication needs, lab studies, and pain. Treatment plan problems . Intervention: Patient assessed and the following interventions initiated safety checks 15 Minute Checks Cognitive Assessment , Head to toe Assessment , Medications. Response: After interactions and interventions patient responded in the following manner, Disorganized , Calm ,Sleeping. Continue to assess behaviors and condition will continue to monitor throughout the shift as needed. 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 Continue to assess patient for changes in above assessment. Monitor for medication needs, pain, and safety concerns. Hourly rounding performed to ensure safe environment.
--- NOTE | 2016-07-17 12:50 | NUR ---
THERAPEUTIC RECREATION GROUP NOTE TITLE :Easter Egg Coloring Sheet ACTIVITY : Arts and Crafts GOAL : Increase focus/alertness, fine motor skills, creativity. DURATION : Available for 120 minutes RESPONSE : No participation. Pt. was complaining of arm pain and started falling asleep at table. DISTILLERY SUPERVISOR walked Pt. to her room where she laid in her bed.
[2016-07-17] MEDS: HYDROcodone/APAP 5/325MG 1 TAB TABLET PO PRN ×2 (13:02→23:43)
--- NOTE | 2016-07-17 15:00 | NUR ---
THERAPEUTIC RECREATION GROUP NOTE TITLE :Outside/ Ball Toss ACTIVITY : Movement/ Exercise GOAL : Increase morale, attention, endurance. Decrease stress/anxiety. DURATION : 45 minutes RESPONSE : No participation. Pt. sleeping in her room
--- NOTE | 2016-07-17 16:03 | NUR ---
pt up at noon. c/o left hip pain and left shoulder. had been lying on that side for most of shift. pt face swollen on left side where she was lying. up for lunch. pain med after meal. was still tired and laid down for nap. up now ambulating in michelle. in pleasant spirits. compliant with meds.
[2016-07-17 16:18] VITALS: BP 129/67
[2016-07-17] MEDS: MIRTAZAPINE 15 MG TABLET PO SCH (19:50)
[2016-07-17] MEDS: traZODone 100 MG TABLET. PO SCH (19:54)
--- NOTE | 2016-07-17 21:14 | PDOC ---
Exam Yaya Demential Exam: Yaya Note: Please also refer to the separate dictated note~for this date of service dictated separately.~Patient seen individually. Discussed the patient with Nursing staff reviewed the chart.~Reviewed interim history and current functioning. Reviewed vital signs,~Labs/ Radiology~and current medications noted below. Continue current treatment with the changes noted in the dictated addendum note Assessment: Vital Signs: Vital Signs Date Time Temp Pulse Resp B/P Pulse Ox O2 Delivery O2 Flow Rate FiO2 07/17/16 16:18 98.9 74 16 129/67 93 07/16/16 21:28 Room Air I&O Intake and Output 07/17/16 07:00 Intake Total 1080 ml Balance 1080 ml Intake Oral 1080 ml Current Medications: Meds: Current Medications Diphenhydramine HCl (Benadryl) 25 mg Q6HRS PO ; Start 07/01/16 at 18:00; Stop at 18:00; Status DC Hydroxyzine HCl (Atarax) 25 mg PRN Q6HRS PRN PO ITCHING Last administered on 01:19; Start 07/01/16 at 15:15; Stop 07/06/16 at 04:21; Status DC Lisinopril (Prinivil) 20 mg DAILY PO Last administered on 07/17/16 08:15; Start 07/02/16 at 09:00 Lorazepam (Ativan) 0.5 mg PRN Q4HRS PRN PO ANXIETY / AGITATION Last administered on 07/02/16 21:07; Start 07/01/16 at 15:15; Stop 07/02/16 at 21:44 ; Status DC Nicotine (Nicoderm Cq 21mg) 1 patch DAILY TD Last administered on 07/17/16 08: 15; Start 07/02/16 at 09:00 Lorazepam (Ativan) 0.5 mg PRN Q4HRS PRN IV ANXIETY / AGITATION; Start 07/01/16 at 15:15; Stop 07/01/16 at 19:14; Status DC Diphenhydramine HCl (Benadryl) 25 mg PRN Q6HRS PRN IVP ITCHING; Start 07/01/16 at 15:15; Stop 07/01/16 at 19:14; Status DC Haloperidol Lactate (Haldol) 5 mg PRN Q6HRS PRN IM AGITATION; Start 07/01/16 at 15:15; Stop 07/01/16 at 19:14; Status DC Diphenhydramine HCl (Benadryl) 25 mg PRN Q6HRS PRN PO ITCHING Last administered on 07/01/16 20:56; Start 07/01/16 at 18:00 Acetaminophen/ Hydrocodone Bitart (Lortab 5/325) 1 tab PRN BID PRN PO PAIN Last administered on 07/17/16 13:02; Start 07/02/16 at 21:45 Olanzapine (Zyprexa Zydis) 2.5 mg PRN Q2HR PRN PO PSYCHOSIS Last administered on 07/16/16 19:25; Start 07/02/16 at 21:45 Mirtazapine (Remeron) 15 mg QHS PO Last administered on 07/17/16 19:50; Start 07/03/16 at 21:00 Citalopram Hydrobromide (Celexa) 10 mg DAILY PO Last administered on 07/17/16 08:15; Start 07/03/16 at 09:00 Risperidone (Risperdal) 0.25 mg BID PO Last administered on 07/10/16 08:54; Start 07/03/16 at 21:00; Stop 07/10/16 at 15:18; Status DC Docusate Calcium (Surfak) 240 mg DAILY PO Last administered on 07/17/16 08:15; Start 07/04/16 at 21:00 Magnesium Hydroxide (Milk Of Magnesia) 2,400 mg PRN QHS PRN PO CONSTIPATION; Start 07/04/16 at 18:15 Trazodone HCl (Desyrel) 50 mg QHS PO Last administered on 07/14/16 20:10; Start 07/05/16 at 21:00; Stop 07/15/16 at 13:52; Status DC Trazodone HCl (Desyrel) 50 mg PRN QHS PRN PO INSOMNIA Last administered on 21:27; Start 07/05/16 at 20:45; Stop 07/15/16 at 13:52; Status DC Hydroxyzine HCl (Atarax) 50 mg PRN Q2HR PRN PO Psychosis Last administered on 16:22; Start 07/06/16 at 04:30 Fentanyl (Duragesic 12mcg/ Hr) 1 patch Q3DAYS TD Last administered on 07/17/16 08:17; Start 07/08/16 at 18:30 Risperidone (Risperdal) 0.25 mg TID PO Last administered on 07/17/16 19:50; Start 07/10/16 at 21:00 Buspirone HCl (Buspar) 5 mg TID PO Last administered on 07/13/16 12:28; Start 07/10/16 at 21:00; Stop 07/13/16 at 15:32; Status DC Buspirone HCl (Buspar) 10 mg BID PO Last administered on 07/17/16 19:54; Start 07/13/16 at 21:00 Divalproex Sodium (Depakote Sprinkles) 125 mg BID PO Last administered on 19:54; Start 07/13/16 at 21:00 Vitamin D (Vitamin D3) 2,000 unit BIDPCLD PO Last administered on 07/17/16 16: 44; Start 07/14/16 at 12:30 Trazodone HCl (Desyrel) 100 mg QHS PO Last administered on 07/17/16 19:54; Start 07/15/16 at 21:00 Trazodone HCl (Desyrel) 100 mg PRN QHS PO ; Start 07/15/16 at 13:45; Stop at 23:01; Status DC Trazodone HCl (Desyrel) 100 mg PRN QHS PRN PO INSOMNIA Last administered on 07/15 23:02; Start 07/15/16 at 23:00 Quetiapine Fumarate (SEROquel) 50 mg 1X ONCE PO Last administered on 07/16/16 00:44; Start 07/16/16 at 00:30; Stop 07/16/16 at 00:31; Status DC Temazepam (Restoril) 30 mg PRN QHS PRN PO INSOMNIA Last administered on 20:12; Start 07/16/16 at 18:30 Active Scripts Active Lisinopril 20 Mg Tablet 1 Tab PO DAILY NICODERM CQ 21mg (Nicotine) 1 Each Patch.td24 1 Patch TP DAILY Lorazepam 0.5 Mg Tablet 1 Tab PO Q4HRS PRN Hydroxyzine Hcl 25 Mg Tablet 1 Tab PO Q6HRS PRN Benadryl (Diphenhydramine Hcl) 25 Mg Capsule 1 Cap PO Q6HRS Diagnosis: Problems: (1) Encounter for psychological evaluation (2) Anxiety disorder (3) Impulse control disorder (4) Dementia, vascular, with delusions (5) Dementia, vascular, with depression (6) Dementia in Alzheimer's disease with delusions (7) Dementia in Alzheimer's disease with depression CAITLYN BHATT MD Jul 17, 2016 21:14
--- NOTE | 2016-07-17 23:56 | NUR ---
Behavior Intervention Response and Plan: BIRP Note: Behavior: Assumed Care of patient, patient located in Hallway at shift change. Patient exhibited the following behavior Wandering, Irritable, Anxious. Brief assessment on rounds of vital signs, medication needs, lab studies, and pain. Treatment plan problems Dementia W BD, Altered Thought Process, and Fall Risk. Intervention: Patient assessed and the following interventions initiated safety checks 15 Minute Checks Cognitive Assessment , Head to toe Assessment , Medications. Response: After interactions and interventions patient responded in the following manner, Restless , Demanding ,Drowsy. Continue to assess behaviors and condition will continue to monitor throughout the shift as needed. 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 Continue to assess patient for changes in above assessment. Monitor for medication needs, pain, and safety concerns. Hourly rounding performed to ensure safe environment.
--- NOTE | 2016-07-18 01:05 | PN ---
DATE: 07/16/2016 PSYCHIATRIC PROGRESS NOTE This is a late entry of 07/16/2016 covers elements not covered in my initial note. I was called around midnight of 07/15/2016/07/16/2016. SUBJECTIVE: The patient was agitated, aggressive, not sleeping, extremely labile, volatile had to be removed to a separate hallway. Most of the day ____ she has been up and awake, has been slept for about 24-36 hours, received Zyprexa x 3 the previous night, Atarax, trazodone, hydroxyzine, all of which was minimally effective. REVIEW OF SYSTEMS: No CV, , pulmonary, eye, ENT system symptoms on review. Reliability poor. MENTAL STATUS EXAM: Oriented to herself. Insight, judgment, recent and remote memory, attention, concentration, fund of knowledge poor, consistent with her diagnosis mentioned in my initial note. PLAN: Start Restoril 30 mg p.o. at bedtime scheduled maintain the rest of the psychotropics including p.r.n. Adjust as clinically indicated. MAN Quinten BHATT MD DR: ALICIA/shanon JOB#: [id number] / [id number]
--- NOTE | 2016-07-18 01:05 | PN ---
DATE: 07/15/2016 PSYCHIATRIC PROGRESS NOTE This is a late entry for 07/15/2016, covers elements not covered in my initial note. SUBJECTIVE: The patient's [id number], Nadine attended the treatment team meeting. Lengthy discussion about her diagnosis, placement options, medications, and prognosis. Appetite 100%, sleeping about 1-1/4 hours. Previous night, she was delusional, upset, trying to find her grandson, anxious, tearful. REVIEW OF SYSTEMS: No CV, , eye, ENT or pulmonary system symptoms on review. Reliability poor. Family is looking at [facility] for placement. MENTAL STATUS EXAM: Oriented to herself. Insight, judgment, recent and remote memory, attention, concentration, fund of knowledge poor, consistent with her diagnosis mentioned in my initial note. PLAN: Continue current psychotropics mentioned in my initial note. Adjust further as clinically indicated. We will have to make sure she is sleeping adequately, but for now she is on trazodone and Remeron to help with this. MAN Quinten BHATT MD DR: ALICIA/shanon JOB#: [id number] / [id number]
[2016-07-18 05:43] VITALS: BP 141/89
[2016-07-18] MEDS: risperiDONE 0.25 MG TABLET. PO SCH ×3 (07:39→19:13)
[2016-07-18] MEDS: DOCUSATE CALCIUM 240 MG CAPSULE PO SCH (07:39)
[2016-07-18] MEDS: busPIRone 10 MG TABLET. PO SCH ×2 (07:39→19:13)
[2016-07-18] MEDS: CITALOPRAM 10 MG TABLET. PO SCH (07:40)
[2016-07-18] MEDS: LISINOPRIL 20 MG TABLET PO SCH (07:40)
[2016-07-18] MEDS: NICOTINE 21MG PATCH. TD SCH (07:40)
[2016-07-18] MEDS: DIVALPROEX 125 MG CAP.SPRINK PO SCH ×2 (07:40→19:13)
[2016-07-18] MEDS: CHOLECALCIFEROL (VITAMIN D3) 1,000 UNIT TABLET PO SCH ×2 (07:40→12:41)
--- NOTE | 2016-07-18 09:16 | NUR ---
Behavior Intervention Response and Plan: BIRP Note: Behavior: Assumed Care of patient, patient located in Hallway at shift change. Patient exhibited the following behavior Disorganized, Anxious, Restless. Brief assessment on rounds of vital signs, medication needs, lab studies, and pain. Treatment plan problems . Intervention: Patient assessed and the following interventions initiated safety checks 15 Minute Checks Head to toe Assessment , Medications , Nutrition. Response: After interactions and interventions patient responded in the following manner, Wandering , Restless ,Compliant. Continue to assess behaviors and condition will continue to monitor throughout the shift as needed. 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 Continue to assess patient for changes in above assessment. Monitor for medication needs, pain, and safety concerns. Hourly rounding performed to ensure safe environment.
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
--- NOTE | 2016-07-18 15:30 | NUR ---
pt irritable and pacing. asking to lan check at the bank. zydis given. sat out side for awhile. calmer now.
[2016-07-18 15:37] VITALS: BP 115/76
[2016-07-18] MEDS: traZODone 100 MG TABLET. PO SCH (19:13)
[2016-07-18] MEDS: MIRTAZAPINE 15 MG TABLET PO SCH (19:13)
[2016-07-18] MEDS: TEMAZEPAM 15 MG CAPSULE PO PRN (20:06)
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
--- NOTE | 2016-07-18 20:21 | NUR ---
Behavior Intervention Response and Plan: BIRP Note: Behavior: Assumed Care of patient, patient located in Hallway at shift change. Patient exhibited the following behavior Wandering, Restless, Disorganized. Brief assessment on rounds of vital signs, medication needs, lab studies, and pain. Treatment plan problems . Intervention: Patient assessed and the following interventions initiated safety checks 15 Minute Checks Cognitive Assessment , Head to toe Assessment , Medications. Response: After interactions and interventions patient responded in the following manner, Cooperative , Compliant ,Anxious. Continue to assess behaviors and condition will continue to monitor throughout the shift as needed. 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 Continue to assess patient for changes in above assessment. Monitor for medication needs, pain, and safety concerns. Hourly rounding performed to ensure safe environment.
--- NOTE | 2016-07-18 21:52 | PDOC ---
Exam Yaya Demential Exam: Yaya Note: Please also refer to the separate dictated note~for this date of service dictated separately.~Patient seen individually. Discussed the patient with Nursing staff reviewed the chart.~Reviewed interim history and current functioning. Reviewed vital signs,~Labs/ Radiology~and current medications noted below. Continue current treatment with the changes noted in the dictated addendum note Assessment: Vital Signs: Vital Signs Date Time Temp Pulse Resp B/P Pulse Ox O2 Delivery O2 Flow Rate FiO2 07/18/16 15:37 98.5 80 20 115/76 95 07/18/16 00:45 Room Air I&O Intake and Output 07/18/16 07:00 Intake Total 600 ml Balance 600 ml Intake Oral 600 ml Current Medications: Meds: Current Medications Diphenhydramine HCl (Benadryl) 25 mg Q6HRS PO ; Start 07/01/16 at 18:00; Stop at 18:00; Status DC Hydroxyzine HCl (Atarax) 25 mg PRN Q6HRS PRN PO ITCHING Last administered on 01:19; Start 07/01/16 at 15:15; Stop 07/06/16 at 04:21; Status DC Lisinopril (Prinivil) 20 mg DAILY PO Last administered on 07/18/16 07:40; Start 07/02/16 at 09:00 Lorazepam (Ativan) 0.5 mg PRN Q4HRS PRN PO ANXIETY / AGITATION Last administered on 07/02/16 21:07; Start 07/01/16 at 15:15; Stop 07/02/16 at 21:44 ; Status DC Nicotine (Nicoderm Cq 21mg) 1 patch DAILY TD Last administered on 07/18/16 07: 40; Start 07/02/16 at 09:00 Lorazepam (Ativan) 0.5 mg PRN Q4HRS PRN IV ANXIETY / AGITATION; Start 07/01/16 at 15:15; Stop 07/01/16 at 19:14; Status DC Diphenhydramine HCl (Benadryl) 25 mg PRN Q6HRS PRN IVP ITCHING; Start 07/01/16 at 15:15; Stop 07/01/16 at 19:14; Status DC Haloperidol Lactate (Haldol) 5 mg PRN Q6HRS PRN IM AGITATION; Start 07/01/16 at 15:15; Stop 07/01/16 at 19:14; Status DC Diphenhydramine HCl (Benadryl) 25 mg PRN Q6HRS PRN PO ITCHING Last administered on 07/01/16 20:56; Start 07/01/16 at 18:00 Acetaminophen/ Hydrocodone Bitart (Lortab 5/325) 1 tab PRN BID PRN PO PAIN Last administered on 07/17/16 23:43; Start 07/02/16 at 21:45 Olanzapine (Zyprexa Zydis) 2.5 mg PRN Q2HR PRN PO PSYCHOSIS Last administered on 07/18/16 20:06; Start 07/02/16 at 21:45 Mirtazapine (Remeron) 15 mg QHS PO Last administered on 07/18/16 19:13; Start 07/03/16 at 21:00 Citalopram Hydrobromide (Celexa) 10 mg DAILY PO Last administered on 07/18/16 07:40; Start 07/03/16 at 09:00 Risperidone (Risperdal) 0.25 mg BID PO Last administered on 07/10/16 08:54; Start 07/03/16 at 21:00; Stop 07/10/16 at 15:18; Status DC Docusate Calcium (Surfak) 240 mg DAILY PO Last administered on 07/18/16 07:39; Start 07/04/16 at 21:00 Magnesium Hydroxide (Milk Of Magnesia) 2,400 mg PRN QHS PRN PO CONSTIPATION; Start 07/04/16 at 18:15 Trazodone HCl (Desyrel) 50 mg QHS PO Last administered on 07/14/16 20:10; Start 07/05/16 at 21:00; Stop 07/15/16 at 13:52; Status DC Trazodone HCl (Desyrel) 50 mg PRN QHS PRN PO INSOMNIA Last administered on 21:27; Start 07/05/16 at 20:45; Stop 07/15/16 at 13:52; Status DC Hydroxyzine HCl (Atarax) 50 mg PRN Q2HR PRN PO Psychosis Last administered on 16:22; Start 07/06/16 at 04:30 Fentanyl (Duragesic 12mcg/ Hr) 1 patch Q3DAYS TD Last administered on 07/17/16 08:17; Start 07/08/16 at 18:30 Risperidone (Risperdal) 0.25 mg TID PO Last administered on 07/18/16 19:13; Start 07/10/16 at 21:00 Buspirone HCl (Buspar) 5 mg TID PO Last administered on 07/13/16 12:28; Start 07/10/16 at 21:00; Stop 07/13/16 at 15:32; Status DC Buspirone HCl (Buspar) 10 mg BID PO Last administered on 07/18/16 19:13; Start 07/13/16 at 21:00 Divalproex Sodium (Depakote Sprinkles) 125 mg BID PO Last administered on 19:13; Start 07/13/16 at 21:00 Vitamin D (Vitamin D3) 2,000 unit BIDPCLD PO Last administered on 07/18/16 12: 41; Start 07/14/16 at 12:30 Trazodone HCl (Desyrel) 100 mg QHS PO Last administered on 07/18/16 19:13; Start 07/15/16 at 21:00 Trazodone HCl (Desyrel) 100 mg PRN QHS PO ; Start 07/15/16 at 13:45; Stop at 23:01; Status DC Trazodone HCl (Desyrel) 100 mg PRN QHS PRN PO INSOMNIA Last administered on 07/15 23:02; Start 07/15/16 at 23:00 Quetiapine Fumarate (SEROquel) 50 mg 1X ONCE PO Last administered on 07/16/16 00:44; Start 07/16/16 at 00:30; Stop 07/16/16 at 00:31; Status DC Temazepam (Restoril) 30 mg PRN QHS PRN PO INSOMNIA Last administered on 20:06; Start 07/16/16 at 18:30 Active Scripts Active Lisinopril 20 Mg Tablet 1 Tab PO DAILY NICODERM CQ 21mg (Nicotine) 1 Each Patch.td24 1 Patch TP DAILY Lorazepam 0.5 Mg Tablet 1 Tab PO Q4HRS PRN Hydroxyzine Hcl 25 Mg Tablet 1 Tab PO Q6HRS PRN Benadryl (Diphenhydramine Hcl) 25 Mg Capsule 1 Cap PO Q6HRS Diagnosis: Problems: (1) Encounter for psychological evaluation (2) Anxiety disorder (3) Impulse control disorder (4) Dementia, vascular, with delusions (5) Dementia, vascular, with depression (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
[2016-07-19] MEDS: HYDROcodone/APAP 5/325MG 1 TAB TABLET PO PRN ×2 (04:56→20:05)
[2016-07-19 05:48] VITALS: BP 143/81
[2016-07-19] MEDS: risperiDONE 0.25 MG TABLET. PO SCH ×3 (07:46→19:21)
[2016-07-19] MEDS: CITALOPRAM 10 MG TABLET. PO SCH (07:46)
[2016-07-19] MEDS: DOCUSATE CALCIUM 240 MG CAPSULE PO SCH (07:46)
[2016-07-19] MEDS: busPIRone 10 MG TABLET. PO SCH ×2 (07:46→19:23)
[2016-07-19] MEDS: LISINOPRIL 20 MG TABLET PO SCH (07:46)
[2016-07-19] MEDS: DIVALPROEX 125 MG CAP.SPRINK PO SCH ×3 (07:46→20:09)
[2016-07-19] MEDS: NICOTINE 21MG PATCH. TD SCH (07:47)
[2016-07-19] MEDS: CHOLECALCIFEROL (VITAMIN D3) 1,000 UNIT TABLET PO SCH ×2 (12:30→16:58)
[2016-07-19 15:49] VITALS: BP 121/76
--- NOTE | 2016-07-19 17:45 | NUR ---
pt up adl has had episodes of exit seeking and irritable behavior. prns utilized. some relief noted. sons here at visiting hours. visits went well.
[2016-07-19] MEDS: MIRTAZAPINE 15 MG TABLET PO SCH (19:21)
[2016-07-19] MEDS: traZODone 100 MG TABLET. PO SCH (19:21)
--- NOTE | 2016-07-19 20:18 | PN ---
DATE: 07/17/2016 PSYCHIATRIC PROGRESS NOTE This is a late entry of 07/17/2016. SUBJECTIVE: The patient was seen on rounds at night, received several telephone calls from nursing staff overnight and during the day on account of the patient's marked agitation, aggression, disruptive psychotic behaviors. She ultimately slept better till 11 in the morning from 2200 hours and more pleasant and compliant as I met with her the evening of 07/17/2016. REVIEW OF SYSTEMS: No CV, , eye, ENT or pulmonary system symptoms on review. Reliability poor. MENTAL STATUS EXAM: Oriented to herself. Insight, judgment, recent and remote memory, attention, concentration, fund of knowledge poor, consistent with her diagnoses mentioned in my initial note. PLAN: Continue current psychotropics mentioned in my initial note. Adjust further as clinically indicated. Valproic acid level is low at 21. We may need to increase this, but for now she seems to be doing a little better and we will maintain unchanged. CAITLYN BHATT MD DR: ALICIA/shanon JOB#: [id number] / [id number]
--- NOTE | 2016-07-19 20:50 | PDOC ---
Exam Yaya Demential Exam: Yaya Note: Please also refer to the separate dictated note~for this date of service dictated separately.~Patient seen individually. Discussed the patient with Nursing staff reviewed the chart.~Reviewed interim history and current functioning. Reviewed vital signs,~Labs/ Radiology~and current medications noted below. Continue current treatment with the changes noted in the dictated addendum note Assessment: Vital Signs: Vital Signs Date Time Temp Pulse Resp B/P Pulse Ox O2 Delivery O2 Flow Rate FiO2 07/19/16 20:05 Room Air 07/19/16 15:49 99.0 81 20 121/76 96 I&O Intake and Output 07/19/16 07:00 Intake Total 1080 ml Balance 1080 ml Intake Oral 1080 ml # Voids 2 Current Medications: Meds: Current Medications Diphenhydramine HCl (Benadryl) 25 mg Q6HRS PO ; Start 07/01/16 at 18:00; Stop at 18:00; Status DC Hydroxyzine HCl (Atarax) 25 mg PRN Q6HRS PRN PO ITCHING Last administered on 01:19; Start 07/01/16 at 15:15; Stop 07/06/16 at 04:21; Status DC Lisinopril (Prinivil) 20 mg DAILY PO Last administered on 07/19/16 07:46; Start 07/02/16 at 09:00 Lorazepam (Ativan) 0.5 mg PRN Q4HRS PRN PO ANXIETY / AGITATION Last administered on 07/02/16 21:07; Start 07/01/16 at 15:15; Stop 07/02/16 at 21:44 ; Status DC Nicotine (Nicoderm Cq 21mg) 1 patch DAILY TD Last administered on 07/19/16 07: 47; Start 07/02/16 at 09:00 Lorazepam (Ativan) 0.5 mg PRN Q4HRS PRN IV ANXIETY / AGITATION; Start 07/01/16 at 15:15; Stop 07/01/16 at 19:14; Status DC Diphenhydramine HCl (Benadryl) 25 mg PRN Q6HRS PRN IVP ITCHING; Start 07/01/16 at 15:15; Stop 07/01/16 at 19:14; Status DC Haloperidol Lactate (Haldol) 5 mg PRN Q6HRS PRN IM AGITATION; Start 07/01/16 at 15:15; Stop 07/01/16 at 19:14; Status DC Diphenhydramine HCl (Benadryl) 25 mg PRN Q6HRS PRN PO ITCHING Last administered on 07/01/16 20:56; Start 07/01/16 at 18:00 Acetaminophen/ Hydrocodone Bitart (Lortab 5/325) 1 tab PRN BID PRN PO PAIN Last administered on 07/19/16 20:05; Start 07/02/16 at 21:45 Olanzapine (Zyprexa Zydis) 2.5 mg PRN Q2HR PRN PO PSYCHOSIS Last administered on 07/19/16 16:58; Start 07/02/16 at 21:45 Mirtazapine (Remeron) 15 mg QHS PO Last administered on 07/19/16 19:21; Start 07/03/16 at 21:00 Citalopram Hydrobromide (Celexa) 10 mg DAILY PO Last administered on 07/19/16 07:46; Start 07/03/16 at 09:00 Risperidone (Risperdal) 0.25 mg BID PO Last administered on 07/10/16 08:54; Start 07/03/16 at 21:00; Stop 07/10/16 at 15:18; Status DC Docusate Calcium (Surfak) 240 mg DAILY PO Last administered on 07/19/16 07:46; Start 07/04/16 at 21:00 Magnesium Hydroxide (Milk Of Magnesia) 2,400 mg PRN QHS PRN PO CONSTIPATION; Start 07/04/16 at 18:15 Trazodone HCl (Desyrel) 50 mg QHS PO Last administered on 07/14/16 20:10; Start 07/05/16 at 21:00; Stop 07/15/16 at 13:52; Status DC Trazodone HCl (Desyrel) 50 mg PRN QHS PRN PO INSOMNIA Last administered on 21:27; Start 07/05/16 at 20:45; Stop 07/15/16 at 13:52; Status DC Hydroxyzine HCl (Atarax) 50 mg PRN Q2HR PRN PO Psychosis Last administered on 16:22; Start 07/06/16 at 04:30 Fentanyl (Duragesic 12mcg/ Hr) 1 patch Q3DAYS TD Last administered on 07/17/16 08:17; Start 07/08/16 at 18:30 Risperidone (Risperdal) 0.25 mg TID PO Last administered on 07/19/16 19:21; Start 07/10/16 at 21:00 Buspirone HCl (Buspar) 5 mg TID PO Last administered on 07/13/16 12:28; Start 07/10/16 at 21:00; Stop 07/13/16 at 15:32; Status DC Buspirone HCl (Buspar) 10 mg BID PO Last administered on 07/19/16 19:23; Start 07/13/16 at 21:00 Divalproex Sodium (Depakote Sprinkles) 125 mg BID PO Last administered on 07:46; Start 07/13/16 at 21:00; Stop 07/19/16 at 11:49; Status DC Vitamin D (Vitamin D3) 2,000 unit BIDPCLD PO Last administered on 07/19/16 16: 58; Start 07/14/16 at 12:30 Trazodone HCl (Desyrel) 100 mg QHS PO Last administered on 07/19/16 19:21; Start 07/15/16 at 21:00 Trazodone HCl (Desyrel) 100 mg PRN QHS PO ; Start 07/15/16 at 13:45; Stop at 23:01; Status DC Trazodone HCl (Desyrel) 100 mg PRN QHS PRN PO INSOMNIA Last administered on 07/15 23:02; Start 07/15/16 at 23:00 Quetiapine Fumarate (SEROquel) 50 mg 1X ONCE PO Last administered on 07/16/16 00:44; Start 07/16/16 at 00:30; Stop 07/16/16 at 00:31; Status DC Temazepam (Restoril) 30 mg PRN QHS PRN PO INSOMNIA Last administered on 20:06; Start 07/16/16 at 18:30 Divalproex Sodium (Depakote Sprinkles) 250 mg BID PO ; Start 07/19/16 at 21:00 Active Scripts Active Lisinopril 20 Mg Tablet 1 Tab PO DAILY NICODERM CQ 21mg (Nicotine) 1 Each Patch.td24 1 Patch TP DAILY Lorazepam 0.5 Mg Tablet 1 Tab PO Q4HRS PRN Hydroxyzine Hcl 25 Mg Tablet 1 Tab PO Q6HRS PRN Benadryl (Diphenhydramine Hcl) 25 Mg Capsule 1 Cap PO Q6HRS Diagnosis: Problems: (1) Encounter for psychological evaluation (2) Anxiety disorder (3) Impulse control disorder (4) Dementia, vascular, with delusions (5) Dementia, vascular, with depression (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
--- NOTE | 2016-07-19 21:47 | NUR ---
Nursing note: Patient very agitated. Screaming in hallway. Put in seclusion hallway. Only took some of medications. Patient screaming out wanting to get onto bus. Tried to redirect. Will continue to monitor.
--- NOTE | 2016-07-19 21:50 | NUR ---
Behavior Intervention Response and Plan: BIRP Note: Behavior: Assumed Care of patient, patient located in Hallway at shift change. Patient exhibited the following behavior Exit Seeking, Restless, Irritable. Brief assessment on rounds of vital signs, medication needs, lab studies, and pain. Treatment plan problems 1-2. Intervention: Patient assessed and the following interventions initiated safety checks 15 Minute Checks Personal Alarm in place , Head to toe Assessment , Medications. Response: After interactions and interventions patient responded in the following manner, Irritable , Defensive ,Non Compliant. Continue to assess behaviors and condition will continue to monitor throughout the shift as needed. 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 Continue to assess patient for changes in above assessment. Monitor for medication needs, pain, and safety concerns. Hourly rounding performed to ensure safe environment.
--- NOTE | 2016-07-19 22:06 | NUR ---
Nursing note: Had to give PRN zydis due to patients behavior. Patient screaming out and cussing. Put in hallway. Will continue to monitor.
[2016-07-20] MEDS: DOCUSATE CALCIUM 240 MG CAPSULE PO SCH (08:13)
[2016-07-20] MEDS: CHOLECALCIFEROL (VITAMIN D3) 1,000 UNIT TABLET PO SCH ×2 (08:13→13:24)
[2016-07-20] MEDS: DIVALPROEX 125 MG CAP.SPRINK PO SCH ×2 (08:13→19:17)
[2016-07-20] MEDS: NICOTINE 21MG PATCH. TD SCH (08:13)
[2016-07-20] MEDS: LISINOPRIL 20 MG TABLET PO SCH (08:14)
[2016-07-20] MEDS: busPIRone 10 MG TABLET. PO SCH ×3 (08:14→19:53)
[2016-07-20] MEDS: CITALOPRAM 10 MG TABLET. PO SCH (08:14)
[2016-07-20] MEDS: risperiDONE 0.25 MG TABLET. PO SCH ×4 (08:15→19:54)
[2016-07-20] MEDS: fentaNYL 12MCG/HR 1 PATCH PATCH TD SCH (08:17)
--- NOTE | 2016-07-20 10:19 | NUR ---
Behavior Intervention Response and Plan: BIRP Note: Behavior: Assumed Care of patient, patient located in Hallway at shift change. Patient exhibited the following behavior Wandering, Irritable, Anxious. Brief assessment on rounds of vital signs, medication needs, lab studies, and pain. Treatment plan problems Dementia W BD, Altered Thought Process, and Fall Risk. Intervention: Patient assessed and the following interventions initiated safety checks 15 Minute Checks Cognitive Assessment , Head to toe Assessment , Medications. Response: After interactions and interventions patient responded in the following manner, Restless , Demanding ,Drowsy. Continue to assess behaviors and condition will continue to monitor throughout the shift as needed. 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 Continue to assess patient for changes in above assessment. Monitor for medication needs, pain, and safety concerns. Hourly rounding performed to ensure safe environment.
[2016-07-20] MEDS: hydrOXYzine HCL 25 MG TABLET PO PRN (13:24)
--- NOTE | 2016-07-20 13:41 | NUR ---
SW unable to send updated notes as SW is looking for placement current notes for pt are not positive and would cause more of a placement issue.
--- NOTE | 2016-07-20 15:37 | NUR ---
pt slept thru breakfast. out to lunch. took meds in am. resistive to taking meds in afternoon. finally took meds with much encouragement. siting in day room at this time.
[2016-07-20 15:50] VITALS: BP 136/82
[2016-07-20] MEDS: MIRTAZAPINE 15 MG TABLET PO SCH ×2 (19:17→19:54)
[2016-07-20] MEDS: traZODone 100 MG TABLET. PO SCH ×2 (19:17→19:53)
--- NOTE | 2016-07-20 19:20 | NUR ---
Behavior Intervention Response and Plan: BIRP Note: Behavior: Assumed Care of patient, patient located in Day Room at shift change. Patient exhibited the following behavior Irritable, Resistive, Anxious. Brief assessment on rounds of vital signs, medication needs, lab studies, and pain. Treatment plan problems . Intervention: Patient assessed and the following interventions initiated safety checks 15 Minute Checks Cognitive Assessment , Head to toe Assessment , Medications. Response: After interactions and interventions patient responded in the following manner, Restless , Irritable ,Anxious. Continue to assess behaviors and condition will continue to monitor throughout the shift as needed. 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 Continue to assess patient for changes in above assessment. Monitor for medication needs, pain, and safety concerns. Hourly rounding performed to ensure safe environment.
[2016-07-20] MEDS: TEMAZEPAM 15 MG CAPSULE PO PRN ×2 (19:22→19:52)
--- NOTE | 2016-07-20 20:49 | PDOC ---
Exam Yaya Demential Exam: Yaya Note: Please also refer to the separate dictated note~for this date of service dictated separately.~Patient seen individually. Discussed the patient with Nursing staff reviewed the chart.~Reviewed interim history and current functioning. Reviewed vital signs,~Labs/ Radiology~and current medications noted below. Continue current treatment with the changes noted in the dictated addendum note Assessment: Vital Signs: Vital Signs Date Time Temp Pulse Resp B/P Pulse Ox O2 Delivery O2 Flow Rate FiO2 07/20/16 15:50 98.7 75 20 136/82 96 Room Air I&O Intake and Output 07/20/16 07:00 Intake Total 840 ml Balance 840 ml Intake Oral 840 ml # Voids 3 Current Medications: Meds: Current Medications Diphenhydramine HCl (Benadryl) 25 mg Q6HRS PO ; Start 07/01/16 at 18:00; Stop at 18:00; Status DC Hydroxyzine HCl (Atarax) 25 mg PRN Q6HRS PRN PO ITCHING Last administered on 01:19; Start 07/01/16 at 15:15; Stop 07/06/16 at 04:21; Status DC Lisinopril (Prinivil) 20 mg DAILY PO Last administered on 07/20/16 08:14; Start 07/02/16 at 09:00 Lorazepam (Ativan) 0.5 mg PRN Q4HRS PRN PO ANXIETY / AGITATION Last administered on 07/02/16 21:07; Start 07/01/16 at 15:15; Stop 07/02/16 at 21:44 ; Status DC Nicotine (Nicoderm Cq 21mg) 1 patch DAILY TD Last administered on 07/20/16 08: 13; Start 07/02/16 at 09:00 Lorazepam (Ativan) 0.5 mg PRN Q4HRS PRN IV ANXIETY / AGITATION; Start 07/01/16 at 15:15; Stop 07/01/16 at 19:14; Status DC Diphenhydramine HCl (Benadryl) 25 mg PRN Q6HRS PRN IVP ITCHING; Start 07/01/16 at 15:15; Stop 07/01/16 at 19:14; Status DC Haloperidol Lactate (Haldol) 5 mg PRN Q6HRS PRN IM AGITATION; Start 07/01/16 at 15:15; Stop 07/01/16 at 19:14; Status DC Diphenhydramine HCl (Benadryl) 25 mg PRN Q6HRS PRN PO ITCHING Last administered on 07/01/16 20:56; Start 07/01/16 at 18:00 Acetaminophen/ Hydrocodone Bitart (Lortab 5/325) 1 tab PRN BID PRN PO PAIN Last administered on 07/19/16 20:05; Start 07/02/16 at 21:45 Olanzapine (Zyprexa Zydis) 2.5 mg PRN Q2HR PRN PO PSYCHOSIS Last administered on 07/19/16 21:53; Start 07/02/16 at 21:45 Mirtazapine (Remeron) 15 mg QHS PO Last administered on 07/19/16 19:21; Start 07/03/16 at 21:00 Citalopram Hydrobromide (Celexa) 10 mg DAILY PO Last administered on 07/20/16 08:14; Start 07/03/16 at 09:00 Risperidone (Risperdal) 0.25 mg BID PO Last administered on 07/10/16 08:54; Start 07/03/16 at 21:00; Stop 07/10/16 at 15:18; Status DC Docusate Calcium (Surfak) 240 mg DAILY PO Last administered on 07/20/16 08:13 ; Start 07/04/16 at 21:00 Magnesium Hydroxide (Milk Of Magnesia) 2,400 mg PRN QHS PRN PO CONSTIPATION; Start 07/04/16 at 18:15 Trazodone HCl (Desyrel) 50 mg QHS PO Last administered on 07/14/16 20:10; Start 07/05/16 at 21:00; Stop 07/15/16 at 13:52; Status DC Trazodone HCl (Desyrel) 50 mg PRN QHS PRN PO INSOMNIA Last administered on 21:27; Start 07/05/16 at 20:45; Stop 07/15/16 at 13:52; Status DC Hydroxyzine HCl (Atarax) 50 mg PRN Q2HR PRN PO Psychosis Last administered on 13:24; Start 07/06/16 at 04:30 Fentanyl (Duragesic 12mcg/ Hr) 1 patch Q3DAYS TD Last administered on 08:17; Start 07/08/16 at 18:30 Risperidone (Risperdal) 0.25 mg TID PO Last administered on 07/20/16 13:23; Start 07/10/16 at 21:00 Buspirone HCl (Buspar) 5 mg TID PO Last administered on 07/13/16 12:28; Start 07/10/16 at 21:00; Stop 07/13/16 at 15:32; Status DC Buspirone HCl (Buspar) 10 mg BID PO Last administered on 07/20/16 08:14; Start 07/13/16 at 21:00 Divalproex Sodium (Depakote Sprinkles) 125 mg BID PO Last administered on 07:46; Start 07/13/16 at 21:00; Stop 07/19/16 at 11:49; Status DC Vitamin D (Vitamin D3) 2,000 unit BIDPCLD PO Last administered on 07/20/16 13: 24; Start 07/14/16 at 12:30 Trazodone HCl (Desyrel) 100 mg QHS PO Last administered on 07/19/16 19:21; Start 07/15/16 at 21:00 Trazodone HCl (Desyrel) 100 mg PRN QHS PO ; Start 07/15/16 at 13:45; Stop at 23:01; Status DC Trazodone HCl (Desyrel) 100 mg PRN QHS PRN PO INSOMNIA Last administered on 07/15 23:02; Start 07/15/16 at 23:00 Quetiapine Fumarate (SEROquel) 50 mg 1X ONCE PO Last administered on 07/16/16 00:44; Start 07/16/16 at 00:30; Stop 07/16/16 at 00:31; Status DC Temazepam (Restoril) 30 mg PRN QHS PRN PO INSOMNIA Last administered on 19:52; Start 07/16/16 at 18:30 Divalproex Sodium (Depakote Sprinkles) 250 mg BID PO Last administered on t 19:17; Start 07/19/16 at 21:00 Active Scripts Active Lisinopril 20 Mg Tablet 1 Tab PO DAILY NICODERM CQ 21mg (Nicotine) 1 Each Patch.td24 1 Patch TP DAILY Lorazepam 0.5 Mg Tablet 1 Tab PO Q4HRS PRN Hydroxyzine Hcl 25 Mg Tablet 1 Tab PO Q6HRS PRN Benadryl (Diphenhydramine Hcl) 25 Mg Capsule 1 Cap PO Q6HRS Diagnosis: Problems: (1) Encounter for psychological evaluation (2) Anxiety disorder (3) Impulse control disorder (4) Dementia, vascular, with delusions (5) Dementia, vascular, with depression (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
--- NOTE | 2016-07-20 22:54 | PN ---
DATE: 07/19/2016 PSYCHIATRIC PROGRESS NOTE This is late entry of 07/19/2016, covers elements not covered in my initial note. SUBJECTIVE: Overall, per nursing report, the patient has been intermittently anxious, agitated, received 2 p.r.n. Sons were visiting her in the afternoon on 07/19/2016. She was less angry after they left from visits as compared to how she responded previously. REVIEW OF SYSTEMS: No CV, , pulmonary, eye, ENT system symptoms on review. MENTAL STATUS EXAMINATION: Oriented to herself, quite hyperverbal. Insight, judgment, recent and remote memory, attention, concentration, fund of knowledge poor, consistent with her diagnosis. LABORATORY DATA: Reviewed. IMPRESSION: Unchanged from initial note. PLAN: Depakote has been increased from 125 b.i.d. to 250 b.i.d. Check labs level in 3 days. Maintain the rest of the psychotropics mentioned in my initial note. CAITLYN BHATT MD DR: ALICIA/shanon JOB#: [id number] / [id number]
[2016-07-21 06:06] VITALS: BP 161/87
--- NOTE | 2016-07-21 08:49 | NUR ---
SW had message from Sina asking for updated notes, SW called left message as at this time notes show pt is agitated and staff giving PRN.
[2016-07-21] MEDS: NICOTINE 21MG PATCH. TD SCH (09:00)
[2016-07-21] MEDS: DOCUSATE CALCIUM 240 MG CAPSULE PO SCH (09:00)
[2016-07-21] MEDS: LISINOPRIL 20 MG TABLET PO SCH (09:42)
[2016-07-21] MEDS: risperiDONE 0.25 MG TABLET. PO SCH ×3 (09:42→19:11)
[2016-07-21] MEDS: CITALOPRAM 10 MG TABLET. PO SCH (09:42)
[2016-07-21] MEDS: busPIRone 10 MG TABLET. PO SCH ×2 (09:42→19:10)
[2016-07-21] MEDS: DIVALPROEX 125 MG CAP.SPRINK PO SCH ×2 (09:42→19:10)
--- NOTE | 2016-07-21 09:45 | NUR ---
Behavior Intervention Response and Plan: BIRP Note: Behavior: Assumed Care of patient, patient located in Day Room at shift change. Patient exhibited the following behavior Restless, Disorganized, Resistive. Brief assessment on rounds of vital signs, medication needs, lab studies, and pain. Treatment plan problems 1 & 2. Intervention: Patient assessed and the following interventions initiated safety checks 15 Minute Checks Cognitive Assessment , Head to toe Assessment , Medications. Response: After interactions and interventions patient responded in the following manner, Calm , Compliant ,Cooperative. Continue to assess behaviors and condition will continue to monitor throughout the shift as needed. 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 Continue to assess patient for changes in above assessment. Monitor for medication needs, pain, and safety concerns. Hourly rounding performed to ensure safe environment.
--- NOTE | 2016-07-21 09:45 | NUR ---
Offered patient her morning meds, patient poured meds into a water cup and refused to take them. Pulled another dose of morning meds, will place in morning snack and observe her eat the snack.
--- NOTE | 2016-07-21 11:00 | NUR ---
THERAPEUTIC RECREATION GROUP NOTE TITLE :Egg Art Activity ACTIVITY : Arts and Crafts GOAL : Increase focus/alertness, fine motor skills, creativity. DURATION : 45 minutes RESPONSE : Minimal participation. Pt. needed repeat directions and one on one assistance throughout the activity. She struggled to follow simple directions and staying focused. She participated for a short while at the beginning of the activity, left to wander and returned when she was encouraged to continue decorating. She was slow to comply. Pt. was thirsty and given a cup of water. After one sip, Pt. said she did not want water and set cup aside. She grabbed the glue bottle and almost licked glue off of the paint brush before VISION TEACHER stopped her and told her that was not something to drink/ eat. Pt. was confused and did not understand.
[2016-07-21] MEDS: CHOLECALCIFEROL (VITAMIN D3) 1,000 UNIT TABLET PO SCH ×2 (13:57→17:27)
--- NOTE | 2016-07-21 13:58 | NUR ---
Patient stated she would only take two pills this afternoon, held one Vitamin D pill so that patient would take her risperidone.
--- NOTE | 2016-07-21 14:00 | NUR ---
THERAPEUTIC RECREATION GROUP NOTE TITLE :Dance and Sing along with Nelly ACTIVITY : Music GOAL : Increase socialization, elevate mood, stimulate memory DURATION : 50 Minutes RESPONSE : No participation. Pt. was in the room but was walking around trying to get outside. She would not sit down was asked. She talked while the music was playing most of the time.
[2016-07-21 15:38] VITALS: BP 121/65
--- NOTE | 2016-07-21 17:06 | PN ---
DATE: 07/18/2016 PSYCHIATRIC PROGRESS NOTE This is late entry of 07/18/2016, covers elements not covered in my initial note. SUBJECTIVE: The patient has been intermittently agitated again in the secured hallway, syringed x 1 for her meds, did better when family here, medication compliant rest of the day, took Lortab before shower, slept ____ 5:30. REVIEW OF SYSTEMS: No CV, , eye, ENT or pulmonary system symptoms on review. Reliability poor. MENTAL STATUS EXAMINATION: Oriented to herself. Insight, judgment, recent and remote memory, attention, concentration, fund of knowledge poor, consistent with her diagnosis mentioned in my initial note. LABROATORY DATA: Valproic acid level 21. PLAN: Increase Depakote Sprinkles from 125 b.i.d. to 250 b.i.d. Check labs level. Adjust further as clinically indicated. Continue rest of the psychotropics. CAITLYN BHATT MD DR: ALICIA/shanon JOB#: [id number] / [id number]
[2016-07-21] MEDS: MIRTAZAPINE 15 MG TABLET PO SCH (19:10)
[2016-07-21] MEDS: traZODone 100 MG TABLET. PO SCH (19:10)
[2016-07-21] MEDS: TEMAZEPAM 15 MG CAPSULE PO PRN (19:12)
--- NOTE | 2016-07-21 20:52 | PDOC ---
Exam Yaya Demential Exam: Yaya Note: Please also refer to the separate dictated note~for this date of service dictated separately.~Patient seen individually. Discussed the patient with Nursing staff reviewed the chart.~Reviewed interim history and current functioning. Reviewed vital signs,~Labs/ Radiology~and current medications noted below. Continue current treatment with the changes noted in the dictated addendum note Assessment: Vital Signs: Vital Signs Date Time Temp Pulse Resp B/P Pulse Ox O2 Delivery O2 Flow Rate FiO2 07/21/16 15:38 99.0 73 18 121/65 96 07/21/16 06:06 Room Air I&O Intake and Output 07/21/16 07:00 Intake Total 1140 ml Balance 1140 ml Intake Oral 1140 ml # Voids 2 Current Medications: Meds: Current Medications Diphenhydramine HCl (Benadryl) 25 mg Q6HRS PO ; Start 07/01/16 at 18:00; Stop at 18:00; Status DC Hydroxyzine HCl (Atarax) 25 mg PRN Q6HRS PRN PO ITCHING Last administered on 01:19; Start 07/01/16 at 15:15; Stop 07/06/16 at 04:21; Status DC Lisinopril (Prinivil) 20 mg DAILY PO Last administered on 07/21/16 09:42; Start 07/02/16 at 09:00 Lorazepam (Ativan) 0.5 mg PRN Q4HRS PRN PO ANXIETY / AGITATION Last administered on 07/02/16 21:07; Start 07/01/16 at 15:15; Stop 07/02/16 at 21:44 ; Status DC Nicotine (Nicoderm Cq 21mg) 1 patch DAILY TD Last administered on 07/20/16 08: 13; Start 07/02/16 at 09:00 Lorazepam (Ativan) 0.5 mg PRN Q4HRS PRN IV ANXIETY / AGITATION; Start 07/01/16 at 15:15; Stop 07/01/16 at 19:14; Status DC Diphenhydramine HCl (Benadryl) 25 mg PRN Q6HRS PRN IVP ITCHING; Start 07/01/16 at 15:15; Stop 07/01/16 at 19:14; Status DC Haloperidol Lactate (Haldol) 5 mg PRN Q6HRS PRN IM AGITATION; Start 07/01/16 at 15:15; Stop 07/01/16 at 19:14; Status DC Diphenhydramine HCl (Benadryl) 25 mg PRN Q6HRS PRN PO ITCHING Last administered on 07/01/16 20:56; Start 07/01/16 at 18:00 Acetaminophen/ Hydrocodone Bitart (Lortab 5/325) 1 tab PRN BID PRN PO PAIN Last administered on 07/19/16 20:05; Start 07/02/16 at 21:45 Olanzapine (Zyprexa Zydis) 2.5 mg PRN Q2HR PRN PO PSYCHOSIS Last administered on 07/19/16 21:53; Start 07/02/16 at 21:45 Mirtazapine (Remeron) 15 mg QHS PO Last administered on 07/21/16 19:10; Start 07/03/16 at 21:00 Citalopram Hydrobromide (Celexa) 10 mg DAILY PO Last administered on 07/21/16 09:42; Start 07/03/16 at 09:00 Risperidone (Risperdal) 0.25 mg BID PO Last administered on 07/10/16 08:54; Start 07/03/16 at 21:00; Stop 07/10/16 at 15:18; Status DC Docusate Calcium (Surfak) 240 mg DAILY PO Last administered on 07/20/16 08:13 ; Start 07/04/16 at 21:00 Magnesium Hydroxide (Milk Of Magnesia) 2,400 mg PRN QHS PRN PO CONSTIPATION; Start 07/04/16 at 18:15 Trazodone HCl (Desyrel) 50 mg QHS PO Last administered on 07/14/16 20:10; Start 07/05/16 at 21:00; Stop 07/15/16 at 13:52; Status DC Trazodone HCl (Desyrel) 50 mg PRN QHS PRN PO INSOMNIA Last administered on 21:27; Start 07/05/16 at 20:45; Stop 07/15/16 at 13:52; Status DC Hydroxyzine HCl (Atarax) 50 mg PRN Q2HR PRN PO Psychosis Last administered on 13:24; Start 07/06/16 at 04:30 Fentanyl (Duragesic 12mcg/ Hr) 1 patch Q3DAYS TD Last administered on 08:17; Start 07/08/16 at 18:30 Risperidone (Risperdal) 0.25 mg TID PO Last administered on 07/21/16 19:11; Start 07/10/16 at 21:00 Buspirone HCl (Buspar) 5 mg TID PO Last administered on 07/13/16 12:28; Start 07/10/16 at 21:00; Stop 07/13/16 at 15:32; Status DC Buspirone HCl (Buspar) 10 mg BID PO Last administered on 07/21/16 19:10; Start 07/13/16 at 21:00 Divalproex Sodium (Depakote Sprinkles) 125 mg BID PO Last administered on 07:46; Start 07/13/16 at 21:00; Stop 07/19/16 at 11:49; Status DC Vitamin D (Vitamin D3) 2,000 unit BIDPCLD PO Last administered on 07/21/16 17: 27; Start 07/14/16 at 12:30 Trazodone HCl (Desyrel) 100 mg QHS PO Last administered on 07/21/16 19:10; Start 07/15/16 at 21:00 Trazodone HCl (Desyrel) 100 mg PRN QHS PO ; Start 07/15/16 at 13:45; Stop at 23:01; Status DC Trazodone HCl (Desyrel) 100 mg PRN QHS PRN PO INSOMNIA Last administered on 07/15 23:02; Start 07/15/16 at 23:00 Quetiapine Fumarate (SEROquel) 50 mg 1X ONCE PO Last administered on 07/16/16 00:44; Start 07/16/16 at 00:30; Stop 07/16/16 at 00:31; Status DC Temazepam (Restoril) 30 mg PRN QHS PRN PO INSOMNIA Last administered on 19:12; Start 07/16/16 at 18:30 Divalproex Sodium (Depakote Sprinkles) 250 mg BID PO Last administered on t 19:10; Start 07/19/16 at 21:00 Active Scripts Active Lisinopril 20 Mg Tablet 1 Tab PO DAILY NICODERM CQ 21mg (Nicotine) 1 Each Patch.td24 1 Patch TP DAILY Lorazepam 0.5 Mg Tablet 1 Tab PO Q4HRS PRN Hydroxyzine Hcl 25 Mg Tablet 1 Tab PO Q6HRS PRN Benadryl (Diphenhydramine Hcl) 25 Mg Capsule 1 Cap PO Q6HRS Diagnosis: Problems: (1) Encounter for psychological evaluation (2) Anxiety disorder (3) Impulse control disorder (4) Dementia, vascular, with delusions (5) Dementia, vascular, with depression (6) Dementia in Alzheimer's disease with delusions (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
--- NOTE | 2016-07-21 21:00 | NUR ---
Behavior Intervention Response and Plan: BIRP Note: Behavior: Assumed Care of patient, patient located in Hallway at shift change. Patient exhibited the following behavior Demanding, Disorganized, Delusions. Brief assessment on rounds of vital signs, medication needs, lab studies, and pain. Treatment plan problems . Intervention: Patient assessed and the following interventions initiated safety checks 15 Minute Checks Cognitive Assessment , Head to toe Assessment , Medications. Response: After interactions and interventions patient responded in the following manner, Non Compliant , ,Resistive. Continue to assess behaviors and condition will continue to monitor throughout the shift as needed. 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 Continue to assess patient for changes in above assessment. Monitor for medication needs, pain, and safety concerns. Hourly rounding performed to ensure safe environment.
[2016-07-21] MEDS: traZODone 100 MG TABLET. PO PRN (21:19)
--- NOTE | 2016-07-21 22:35 | PN ---
DATE: 07/20/2016 PSYCHIATRIC PROGRESS NOTE This is late entry of 07/20/2016, covers elements not covered in my initial note. SUBJECTIVE: Overall, per nursing report, the patient slept poorly the previous night, but slept in late morning of 07/20/2016, slept through breakfast. No family visited her. She remains confused, less agitated; however, as compared to previous days. REVIEW OF SYSTEMS: No CV, , eye, ENT, pulmonary system symptoms on review. Reliability poor. MENTAL STATUS EXAMINATION: Oriented to herself. Insight, judgment, recent and remote memory, attention, concentration, fund of knowledge poor, consistent with the diagnosis mentioned in my initial note. PLAN: Continue current psychotropics, Depakote was increased. Follow labs level on the 07/22/2016, adjust as clinically indicated. MAN Quinten BHATT MD DR: ALICIA/shanon JOB#: [id number] / [id number]
[2016-07-22] MEDS: DOCUSATE CALCIUM 240 MG CAPSULE PO SCH (09:00)
[2016-07-22] MEDS: NICOTINE 21MG PATCH. TD SCH ×2 (09:00→19:37)
[2016-07-22 09:50] VITALS: BP 133/76
[2016-07-22 10:11] LABS: BASO # 0.1 x10^3/uL (0.0-0.2); BASO % 1 % (0-3); EOS # 0.2 x10^3/uL (0.0-0.7); EOS % 1 % (0-3); HEMATOCRIT 31.5 % (36.0-47.0); HEMOGLOBIN 10.3 g/dL (12.0-15.5); LYMPH # 2.4 x10^3/uL (1.0-4.8); LYMPH % 18 % (24-48); MEAN CORPUSCULAR HEMOGLOBIN 30 pg (25-35); MEAN CORPUSCULAR HGB CONC 33 g/dL (31-37); MEAN CORPUSCULAR VOLUME 93 fL (79-100); MONO # 1.3 x10^3/uL (0.0-1.1); MONO % 10 % (0-9); NEUT # 9.9 x10^3uL (1.8-7.7); NEUT % 71 % (31-73); PLATELET COUNT 374 x10^3/uL (140-400); RED CELL DISTRIBUTION WIDTH 15.4 % (11.5-14.5); WHITE BLOOD COUNT 13.9 x10^3/uL (4.0-11.0)
--- NOTE | 2016-07-22 11:00 | NUR ---
THERAPEUTIC RECREATION GROUP NOTE TITLE :Egg-xciting Things To Do ACTIVITY : Leisure Awareness GOAL : Increase knowledge of leisure activities DURATION : 60 Minutes RESPONSE : No participation. Pt. sleeping in her room
[2016-07-22] MEDS: CITALOPRAM 10 MG TABLET. PO SCH (12:19)
[2016-07-22] MEDS: DIVALPROEX 125 MG CAP.SPRINK PO SCH ×2 (12:20→20:03)
[2016-07-22] MEDS: risperiDONE 0.25 MG TABLET. PO SCH ×3 (12:20→19:50)
[2016-07-22] MEDS: LISINOPRIL 20 MG TABLET PO SCH (12:20)
[2016-07-22] MEDS: busPIRone 10 MG TABLET. PO SCH ×2 (12:20→19:50)
[2016-07-22 12:48] LABS: ALBUMIN 2.8 g/dL (3.4-5.0); ALBUMIN/GLOBULIN RATIO 0.8 (1.0-1.7); CALCIUM 8.6 mg/dL (8.5-10.1); CREATININE 0.8 mg/dL (0.6-1.0); GFR 70.7; POTASSIUM 3.8 mmol/L (3.5-5.1); TOTAL BILIRUBIN 0.4 mg/dL (0.2-1.0); TOTAL PROTEIN 6.4 g/dL (6.4-8.2)
--- NOTE | 2016-07-22 14:00 | NUR ---
THERAPEUTIC RECREATION GROUP NOTE TITLE :Egg Popping Questions ACTIVITY : Activities and Games GOAL : Increase socialization and stimulate memory. Maintain/improve mental and physical functioning. DURATION : 30 minutes RESPONSE : Minimal participation. Pt. joined the activity towards the end. She initially was agreeable and selected an egg and held it for a short while. Pt. did not want to wait any longer, asked to read hers but was told she could go after a few more people. Pt. didn't care about the activity any longer and tossed the eggs on the ground and walked away.
[2016-07-22] MEDS: CHOLECALCIFEROL (VITAMIN D3) 1,000 UNIT TABLET PO SCH ×2 (14:31→18:32)
[2016-07-22 15:33] VITALS: BP 137/81
[2016-07-22] MEDS: ACETAMINOPHEN 325 MG TABLET PO PRN (15:38)
--- NOTE | 2016-07-22 15:40 | NUR ---
Patient complains of headache, PRN meds provided per eMAR. Will monitor for effect.
--- NOTE | 2016-07-22 16:43 | NUR ---
Patient has new lab results, informed; no new orders received at this time.
--- NOTE | 2016-07-22 16:58 | NUR ---
Patient states no headache at this time. She complains of increased urgency and frequency of bowel movements.
[2016-07-22] MEDS: traZODone 100 MG TABLET. PO SCH (19:50)
[2016-07-22] MEDS: MIRTAZAPINE 15 MG TABLET PO SCH (19:50)
[2016-07-22] MEDS: MELATONIN 3 MG TABLET PO SCH (20:03)
--- NOTE | 2016-07-22 20:45 | NUR ---
Pt agitated about taking a shower, screaming and resisting. Unable to redirect. Gave PRN Zkeatonis as ordered.
--- NOTE | 2016-07-22 20:55 | PDOC ---
Exam Yaya Demential Exam: Yaya Note: Please also refer to the separate dictated note~for this date of service dictated separately.~Patient seen individually. Discussed the patient with Nursing staff reviewed the chart.~Reviewed interim history and current functioning. Reviewed vital signs,~Labs/ Radiology~and current medications noted below. Continue current treatment with the changes noted in the dictated addendum note Assessment: Vital Signs: Vital Signs Date Time Temp Pulse Resp B/P Pulse Ox O2 Delivery O2 Flow Rate FiO2 07/22/16 15:33 98.5 73 137/81 97 07/22/16 09:50 20 Room Air I&O Intake and Output 07/22/16 07:00 Intake Total 1440 ml Balance 1440 ml Intake Oral 1440 ml # Voids 2 Labs: Laboratory Tests Test 07/22/16 10:03 White Blood Count 13.9x10^3/uL (4.0-11.0) H Red Blood Count 3.40x10^6/uL (3.50-5.40) L Hemoglobin 10.3g/dL (12.0-15.5) L Hematocrit 31.5% (36.0-47.0) L Mean Corpuscular Volume 93fL (79-100) Mean Corpuscular Hemoglobin 30pg (25-35) Mean Corpuscular Hemoglobin Concent 33g/dL (31-37) Red Cell Distribution Width 15.4% (11.5-14.5) H Platelet Count 374x10^3/uL (140-400) Neutrophils (%) (Auto) 71% (31-73) Lymphocytes (%) (Auto) 18% (24-48) L Monocytes (%) (Auto) 10% (0-9) H Eosinophils (%) (Auto) 1% (0-3) Basophils (%) (Auto) 1% (0-3) Neutrophils # (Auto) 9.9x10^3uL (1.8-7.7) H Lymphocytes # (Auto) 2.4x10^3/uL (1.0-4.8) Monocytes # (Auto) 1.3x10^3/uL (0.0-1.1) H Eosinophils # (Auto) 0.2x10^3/uL (0.0-0.7) Basophils # (Auto) 0.1x10^3/uL (0.0-0.2) Sodium Level 144mmol/L (136-145) Potassium Level 3.8mmol/L (3.5-5.1) Chloride Level 111mmol/L (98-107) H Carbon Dioxide Level 29mmol/L (21-32) Anion Gap 4 (6-14) L Blood Urea Nitrogen 15mg/dL (7-20) Creatinine 0.8mg/dL (0.6-1.0) Estimated GFR (Cockcroft-Gault) 70.7 BUN/Creatinine Ratio 19 (6-20) Glucose Level 104mg/dL (70-99) H Calcium Level 8.6mg/dL (8.5-10.1) Total Bilirubin 0.4mg/dL (0.2-1.0) Aspartate Amino Transferase (AST) 12U/L (15-37) L Alanine Aminotransferase (ALT) 20U/L (14-59) Alkaline Phosphatase 81U/L (46-116) Total Protein 6.4g/dL (6.4-8.2) Albumin 2.8g/dL (3.4-5.0) L Albumin/Globulin Ratio 0.8 (1.0-1.7) L Valproic Acid Level 33mcg/mL (50-100) L Valproic Acid Last Dose Date [id number] Valproic Acid Last Dose Time 2100 Current Medications: Meds: Current Medications Diphenhydramine HCl (Benadryl) 25 mg Q6HRS PO ; Start 07/01/16 at 18:00; Stop at 18:00; Status DC Hydroxyzine HCl (Atarax) 25 mg PRN Q6HRS PRN PO ITCHING Last administered on 01:19; Start 07/01/16 at 15:15; Stop 07/06/16 at 04:21; Status DC Lisinopril (Prinivil) 20 mg DAILY PO Last administered on 07/22/16 12:20; Start 07/02/16 at 09:00 Lorazepam (Ativan) 0.5 mg PRN Q4HRS PRN PO ANXIETY / AGITATION Last administered on 07/02/16 21:07; Start 07/01/16 at 15:15; Stop 07/02/16 at 21:44 ; Status DC Nicotine (Nicoderm Cq 21mg) 1 patch DAILY TD Last administered on 07/20/16 08: 13; Start 07/02/16 at 09:00 Lorazepam (Ativan) 0.5 mg PRN Q4HRS PRN IV ANXIETY / AGITATION; Start 07/01/16 at 15:15; Stop 07/01/16 at 19:14; Status DC Diphenhydramine HCl (Benadryl) 25 mg PRN Q6HRS PRN IVP ITCHING; Start 07/01/16 at 15:15; Stop 07/01/16 at 19:14; Status DC Haloperidol Lactate (Haldol) 5 mg PRN Q6HRS PRN IM AGITATION; Start 07/01/16 at 15:15; Stop 07/01/16 at 19:14; Status DC Diphenhydramine HCl (Benadryl) 25 mg PRN Q6HRS PRN PO ITCHING Last administered on 07/01/16 20:56; Start 07/01/16 at 18:00 Acetaminophen/ Hydrocodone Bitart (Lortab 5/325) 1 tab PRN BID PRN PO PAIN Last administered on 07/19/16 20:05; Start 07/02/16 at 21:45 Olanzapine (Zyprexa Zydis) 2.5 mg PRN Q2HR PRN PO PSYCHOSIS Last administered on 07/22/16 20:49; Start 07/02/16 at 21:45 Mirtazapine (Remeron) 15 mg QHS PO Last administered on 07/22/16 19:50; Start 07/03/16 at 21:00 Citalopram Hydrobromide (Celexa) 10 mg DAILY PO Last administered on 07/22/16 12:19; Start 07/03/16 at 09:00 Risperidone (Risperdal) 0.25 mg BID PO Last administered on 07/10/16 08:54; Start 07/03/16 at 21:00; Stop 07/10/16 at 15:18; Status DC Docusate Calcium (Surfak) 240 mg DAILY PO Last administered on 07/20/16 08:13 ; Start 07/04/16 at 21:00 Magnesium Hydroxide (Milk Of Magnesia) 2,400 mg PRN QHS PRN PO CONSTIPATION; Start 07/04/16 at 18:15 Trazodone HCl (Desyrel) 50 mg QHS PO Last administered on 07/14/16 20:10; Start 07/05/16 at 21:00; Stop 07/15/16 at 13:52; Status DC Trazodone HCl (Desyrel) 50 mg PRN QHS PRN PO INSOMNIA Last administered on 21:27; Start 07/05/16 at 20:45; Stop 07/15/16 at 13:52; Status DC Hydroxyzine HCl (Atarax) 50 mg PRN Q2HR PRN PO Psychosis Last administered on 13:24; Start 07/06/16 at 04:30 Fentanyl (Duragesic 12mcg/ Hr) 1 patch Q3DAYS TD Last administered on 08:17; Start 07/08/16 at 18:30 Risperidone (Risperdal) 0.25 mg TID PO Last administered on 07/22/16 19:50; Start 07/10/16 at 21:00 Buspirone HCl (Buspar) 5 mg TID PO Last administered on 07/13/16 12:28; Start 07/10/16 at 21:00; Stop 07/13/16 at 15:32; Status DC Buspirone HCl (Buspar) 10 mg BID PO Last administered on 07/22/16 19:50; Start 07/13/16 at 21:00 Divalproex Sodium (Depakote Sprinkles) 125 mg BID PO Last administered on 07:46; Start 07/13/16 at 21:00; Stop 07/19/16 at 11:49; Status DC Vitamin D (Vitamin D3) 2,000 unit BIDPCLD PO Last administered on 07/22/16 18: 32; Start 07/14/16 at 12:30 Trazodone HCl (Desyrel) 100 mg QHS PO Last administered on 07/22/16 19:50; Start 07/15/16 at 21:00 Trazodone HCl (Desyrel) 100 mg PRN QHS PO ; Start 07/15/16 at 13:45; Stop at 23:01; Status DC Trazodone HCl (Desyrel) 100 mg PRN QHS PRN PO INSOMNIA Last administered on 21:19; Start 07/15/16 at 23:00 Quetiapine Fumarate (SEROquel) 50 mg 1X ONCE PO Last administered on 07/16/16 00:44; Start 07/16/16 at 00:30; Stop 07/16/16 at 00:31; Status DC Temazepam (Restoril) 30 mg PRN QHS PRN PO INSOMNIA Last administered on 19:12; Start 07/16/16 at 18:30 Divalproex Sodium (Depakote Sprinkles) 250 mg BID PO Last administered on 12:20; Start 07/19/16 at 21:00; Stop 07/22/16 at 18:23; Status DC Acetaminophen (Tylenol) 650 mg PRN Q6HRS PRN PO PAIN / TEMP Last administered on 07/22/16 15:38; Start 07/22/16 at 15:30 Divalproex Sodium (Depakote Sprinkles) 375 mg BID PO Last administered on 20:03; Start 07/22/16 at 21:00 Melatonin 6 mg QHS PO Last administered on 07/22/16 20:03; Start 07/22/16 at 21:00 Active Scripts Active Lisinopril 20 Mg Tablet 1 Tab PO DAILY NICODERM CQ 21mg (Nicotine) 1 Each Patch.td24 1 Patch TP DAILY Lorazepam 0.5 Mg Tablet 1 Tab PO Q4HRS PRN Hydroxyzine Hcl 25 Mg Tablet 1 Tab PO Q6HRS PRN Benadryl (Diphenhydramine Hcl) 25 Mg Capsule 1 Cap PO Q6HRS Diagnosis: Problems: (1) Encounter for psychological evaluation (2) Anxiety disorder (3) Impulse control disorder (4) Dementia, vascular, with delusions (5) Dementia, vascular, with depression (6) Dementia in Alzheimer's disease with delusions (7) Dementia in Alzheimer's disease with depression CAITLYN BHATT MD Jul 22, 2016 20:55
--- NOTE | 2016-07-22 21:03 | PN ---
DATE: 07/21/2016 PSYCHIATRIC PROGRESS NOTE This is late entry of 07/21/2016, covers elements not covered in my initial note. SUBJECTIVE: Overall, per nursing report, the patient has been suspicious, confused, anxious, wandering, exit seeking, refused her a.m. medications, took them later in the day, crushed in ice cream. REVIEW OF SYSTEMS: No CV, , pulmonary, eye, ENT system symptoms on review. Reliability poor. MENTAL STATUS EXAMINATION: Oriented to herself. Insight, judgment, recent and remote memory, attention, concentration, fund of knowledge poor, consistent with her diagnosis mentioned in my initial note. PLAN: Continue current psychotropics. Valproic acid level is awaited with the increased dosage, we may adjust further to reach a therapeutic level. MAN Quitnen BHTAT MD DR: ALICIA/shanon JOB#: [id number] / [id number]
--- NOTE | 2016-07-22 21:51 | NUR ---
Behavior Intervention Response and Plan: BIRP Note: Behavior: Assumed Care of patient, patient located in Day Room at shift change. Patient exhibited the following behavior Delusions, Wandering, Restless. Brief assessment on rounds of vital signs, medication needs, lab studies, and pain. Treatment plan problems . Intervention: Patient assessed and the following interventions initiated safety checks 15 Minute Checks Cognitive Assessment , Head to toe Assessment , Medications. Response: After interactions and interventions patient responded in the following manner, Appropriate , Compulsive ,Cooperative. Continue to assess behaviors and condition will continue to monitor throughout the shift as needed. 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 Continue to assess patient for changes in above assessment. Monitor for medication needs, pain, and safety concerns. Hourly rounding performed to ensure safe environment.
[2016-07-23 05:34] VITALS: BP 107/59
[2016-07-23] MEDS: NICOTINE 21MG PATCH. TD SCH (08:09)
[2016-07-23] MEDS: CITALOPRAM 10 MG TABLET. PO SCH (08:10)
[2016-07-23] MEDS: busPIRone 10 MG TABLET. PO SCH ×2 (08:10→19:09)
[2016-07-23] MEDS: risperiDONE 0.25 MG TABLET. PO SCH ×3 (08:10→19:10)
[2016-07-23] MEDS: DOCUSATE CALCIUM 240 MG CAPSULE PO SCH (08:10)
[2016-07-23] MEDS: DIVALPROEX 125 MG CAP.SPRINK PO SCH ×2 (08:11→19:09)
[2016-07-23] MEDS: fentaNYL 12MCG/HR 1 PATCH PATCH TD SCH (08:17)
[2016-07-23] MEDS: LISINOPRIL 20 MG TABLET PO SCH (09:00)
[2016-07-23] MEDS: CHOLECALCIFEROL (VITAMIN D3) 1,000 UNIT TABLET PO SCH ×2 (12:36→17:29)
--- NOTE | 2016-07-23 14:00 | NUR ---
THERAPEUTIC RECREATION GROUP NOTE TITLE :Easter Egg Coloring ACTIVITY : Arts and Crafts GOAL : Increase holiday spirit, socialization, reminiscing DURATION : 45 Minutes RESPONSE : Minimal participation. She needed repeat prompting and encouraging; however, did not color an egg. She stayed with the group the entire time and socialized. She enjoyed visiting with young children who came to visit and partake in the activity. 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
--- NOTE | 2016-07-23 15:00 | NUR ---
Behavior Intervention Response and Plan: BIRP Note: Behavior: Assumed Care of patient, patient located in Hallway at shift change. Patient exhibited the following behavior Calm, Disorganized, Wandering. Brief assessment on rounds of vital signs, medication needs, lab studies, and pain. Treatment plan problems . Intervention: Patient assessed and the following interventions initiated safety checks 15 Minute Checks Personal Alarm in place , Call amaya in reach , Medications. Response: After interactions and interventions patient responded in the following manner, Wandering , Calm ,Disorganized. Continue to assess behaviors and condition will continue to monitor throughout the shift as needed. Plan: Continue to monitor Master Treatment Plan for patient's progress toward short term goals of Decreased Agitation, Decreased Anxiety, correction goals to return to previous living setting vs placement. Continue to assess patient for changes in above assessment. Monitor for medication needs, pain, and safety concerns. Hourly rounding performed to ensure safe environment.
[2016-07-23 15:33] VITALS: BP 129/81
[2016-07-23] MEDS: MELATONIN 3 MG TABLET PO SCH (19:07)
[2016-07-23] MEDS: traZODone 100 MG TABLET. PO SCH (19:09)
[2016-07-23] MEDS: MIRTAZAPINE 15 MG TABLET PO SCH (19:10)
--- NOTE | 2016-07-23 20:59 | PDOC ---
Exam Yaya Demential Exam: Yaya Note: Please also refer to the separate dictated note~for this date of service dictated separately.~Patient seen individually. Discussed the patient with Nursing staff reviewed the chart.~Reviewed interim history and current functioning. Reviewed vital signs,~Labs/ Radiology~and current medications noted below. Continue current treatment with the changes noted in the dictated addendum note Assessment: Vital Signs: Vital Signs Date Time Temp Pulse Resp B/P Pulse Ox O2 Delivery O2 Flow Rate FiO2 07/23/16 15:33 98.1 82 16 129/81 97 07/23/16 12:30 Room Air I&O Intake and Output 07/23/16 07:00 Intake Total 1660 ml Balance 1660 ml Intake Oral 1660 ml # Bowel Movements 1 Current Medications: Meds: Current Medications Diphenhydramine HCl (Benadryl) 25 mg Q6HRS PO ; Start 07/01/16 at 18:00; Stop at 18:00; Status DC Hydroxyzine HCl (Atarax) 25 mg PRN Q6HRS PRN PO ITCHING Last administered on 01:19; Start 07/01/16 at 15:15; Stop 07/06/16 at 04:21; Status DC Lisinopril (Prinivil) 20 mg DAILY PO Last administered on 07/23/16 09:00; Start 07/02/16 at 09:00 Lorazepam (Ativan) 0.5 mg PRN Q4HRS PRN PO ANXIETY / AGITATION Last administered on 07/02/16 21:07; Start 07/01/16 at 15:15; Stop 07/02/16 at 21:44 ; Status DC Nicotine (Nicoderm Cq 21mg) 1 patch DAILY TD Last administered on 07/23/16 08: 09; Start 07/02/16 at 09:00 Lorazepam (Ativan) 0.5 mg PRN Q4HRS PRN IV ANXIETY / AGITATION; Start 07/01/16 at 15:15; Stop 07/01/16 at 19:14; Status DC Diphenhydramine HCl (Benadryl) 25 mg PRN Q6HRS PRN IVP ITCHING; Start 07/01/16 at 15:15; Stop 07/01/16 at 19:14; Status DC Haloperidol Lactate (Haldol) 5 mg PRN Q6HRS PRN IM AGITATION; Start 07/01/16 at 15:15; Stop 07/01/16 at 19:14; Status DC Diphenhydramine HCl (Benadryl) 25 mg PRN Q6HRS PRN PO ITCHING Last administered on 07/01/16 20:56; Start 07/01/16 at 18:00 Acetaminophen/ Hydrocodone Bitart (Lortab 5/325) 1 tab PRN BID PRN PO PAIN Last administered on 07/19/16 20:05; Start 07/02/16 at 21:45 Olanzapine (Zyprexa Zydis) 2.5 mg PRN Q2HR PRN PO PSYCHOSIS Last administered on 07/22/16 20:49; Start 07/02/16 at 21:45 Mirtazapine (Remeron) 15 mg QHS PO Last administered on 07/23/16 19:10; Start 07/03/16 at 21:00 Citalopram Hydrobromide (Celexa) 10 mg DAILY PO Last administered on 07/23/16 08:10; Start 07/03/16 at 09:00 Risperidone (Risperdal) 0.25 mg BID PO Last administered on 07/10/16 08:54; Start 07/03/16 at 21:00; Stop 07/10/16 at 15:18; Status DC Docusate Calcium (Surfak) 240 mg DAILY PO Last administered on 07/23/16 08:10 ; Start 07/04/16 at 21:00 Magnesium Hydroxide (Milk Of Magnesia) 2,400 mg PRN QHS PRN PO CONSTIPATION; Start 07/04/16 at 18:15 Trazodone HCl (Desyrel) 50 mg QHS PO Last administered on 07/14/16 20:10; Start 07/05/16 at 21:00; Stop 07/15/16 at 13:52; Status DC Trazodone HCl (Desyrel) 50 mg PRN QHS PRN PO INSOMNIA Last administered on 21:27; Start 07/05/16 at 20:45; Stop 07/15/16 at 13:52; Status DC Hydroxyzine HCl (Atarax) 50 mg PRN Q2HR PRN PO Psychosis Last administered on 13:24; Start 07/06/16 at 04:30 Fentanyl (Duragesic 12mcg/ Hr) 1 patch Q3DAYS TD Last administered on 08:17; Start 07/08/16 at 18:30 Risperidone (Risperdal) 0.25 mg TID PO Last administered on 07/23/16 19:10; Start 07/10/16 at 21:00 Buspirone HCl (Buspar) 5 mg TID PO Last administered on 07/13/16 12:28; Start 07/10/16 at 21:00; Stop 07/13/16 at 15:32; Status DC Buspirone HCl (Buspar) 10 mg BID PO Last administered on 07/23/16 19:09; Start 07/13/16 at 21:00 Divalproex Sodium (Depakote Sprinkles) 125 mg BID PO Last administered on 07:46; Start 07/13/16 at 21:00; Stop 07/19/16 at 11:49; Status DC Vitamin D (Vitamin D3) 2,000 unit BIDPCLD PO Last administered on 07/23/16 17: 29; Start 07/14/16 at 12:30 Trazodone HCl (Desyrel) 100 mg QHS PO Last administered on 07/23/16 19:09; Start 07/15/16 at 21:00 Trazodone HCl (Desyrel) 100 mg PRN QHS PO ; Start 07/15/16 at 13:45; Stop at 23:01; Status DC Trazodone HCl (Desyrel) 100 mg PRN QHS PRN PO INSOMNIA Last administered on 21:19; Start 07/15/16 at 23:00 Quetiapine Fumarate (SEROquel) 50 mg 1X ONCE PO Last administered on 07/16/16 00:44; Start 07/16/16 at 00:30; Stop 07/16/16 at 00:31; Status DC Temazepam (Restoril) 30 mg PRN QHS PRN PO INSOMNIA Last administered on 19:12; Start 07/16/16 at 18:30 Divalproex Sodium (Depakote Sprinkles) 250 mg BID PO Last administered on 12:20; Start 07/19/16 at 21:00; Stop 07/22/16 at 18:23; Status DC Acetaminophen (Tylenol) 650 mg PRN Q6HRS PRN PO PAIN / TEMP Last administered on 07/22/16 15:38; Start 07/22/16 at 15:30 Divalproex Sodium (Depakote Sprinkles) 375 mg BID PO Last administered on 19:09; Start 07/22/16 at 21:00 Melatonin 6 mg QHS PO Last administered on 07/23/16 19:07; Start 07/22/16 at 21:00 Active Scripts Active Lisinopril 20 Mg Tablet 1 Tab PO DAILY NICODERM CQ 21mg (Nicotine) 1 Each Patch.td24 1 Patch TP DAILY Lorazepam 0.5 Mg Tablet 1 Tab PO Q4HRS PRN Hydroxyzine Hcl 25 Mg Tablet 1 Tab PO Q6HRS PRN Benadryl (Diphenhydramine Hcl) 25 Mg Capsule 1 Cap PO Q6HRS Diagnosis: Problems: (1) Encounter for psychological evaluation (2) Anxiety disorder (3) Impulse control disorder (4) Dementia, vascular, with delusions (5) Dementia, vascular, with depression (6) Dementia in Alzheimer's disease with delusions (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
--- NOTE | 2016-07-23 21:33 | NUR ---
Behavior Intervention Response and Plan: BIRP Note: Behavior: Assumed Care of patient, patient located in Hallway at shift change. Patient exhibited the following behavior Disorganized, Compulsive, Defensive. Brief assessment on rounds of vital signs, medication needs, lab studies, and pain. Treatment plan problems . Intervention: Patient assessed and the following interventions initiated safety checks 15 Minute Checks Cognitive Assessment , Head to toe Assessment , Medications. Response: After interactions and interventions patient responded in the following manner, Resistive , Non Compliant with Meds ,Anxious. Continue to assess behaviors and condition will continue to monitor throughout the shift as needed. 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 Continue to assess patient for changes in above assessment. Monitor for medication needs, pain, and safety concerns. Hourly rounding performed to ensure safe environment.
[2016-07-24 06:24] VITALS: BP 111/69
[2016-07-24] MEDS: NICOTINE 21MG PATCH. TD SCH (08:09)
[2016-07-24] MEDS: DOCUSATE CALCIUM 240 MG CAPSULE PO SCH (08:09)
[2016-07-24] MEDS: LISINOPRIL 20 MG TABLET PO SCH (08:09)
[2016-07-24] MEDS: DIVALPROEX 125 MG CAP.SPRINK PO SCH ×2 (08:10→19:38)
[2016-07-24] MEDS: busPIRone 10 MG TABLET. PO SCH ×2 (08:10→19:37)
[2016-07-24] MEDS: risperiDONE 0.25 MG TABLET. PO SCH ×3 (08:10→19:37)
[2016-07-24] MEDS: CITALOPRAM 10 MG TABLET. PO SCH (08:11)
--- NOTE | 2016-07-24 10:45 | NUR ---
THERAPEUTIC RECREATION GROUP NOTE TITLE :Egg Toss ACTIVITY : Activities and Games GOAL : Increase socialization, attention, focus. Maintain/improve physical functioning. DURATION : 45 Minutes RESPONSE : Full participation. Pt. was playful, helpful, made jokes, laughed often. She was a pleasure to have in group. She needed reminders and minimal assistance. She picked up the plastic eggs to help and wanted to keep playing when it was over.
[2016-07-24] MEDS: CHOLECALCIFEROL (VITAMIN D3) 1,000 UNIT TABLET PO SCH ×2 (12:30→16:34)
--- NOTE | 2016-07-24 14:30 | NUR ---
Behavior Intervention Response and Plan: BIRP Note: Behavior: Assumed Care of patient, patient located in Hallway at shift change. Patient exhibited the following behavior Wandering, Compliant, Cooperative. Brief assessment on rounds of vital signs, medication needs, lab studies, and pain. Treatment plan problems . Intervention: Patient assessed and the following interventions initiated safety checks 15 Minute Checks Medications , Nutrition , Call amaya in reach. Response: After interactions and interventions patient responded in the following manner, Wandering , Disorganized ,Compliant. Continue to assess behaviors and condition will continue to monitor throughout the shift as needed. Plan: Continue to monitor Master Treatment Plan for patient's progress toward short term goals of Medication Compliance, Decreased Agitation, assisted goals to return to previous living setting vs placement. Continue to assess patient for changes in above assessment. Monitor for medication needs, pain, and safety concerns. Hourly rounding performed to ensure safe environment.
--- NOTE | 2016-07-24 15:00 | NUR ---
THERAPEUTIC RECREATION GROUP NOTE TITLE :Faye Carbajal Hong and Cookie Decorating ACTIVITY : Activities and Games GOAL : Facilitate sense of belonging and well-being, elevate mood, increase socialization and social skills. Incorporate traditions. DURATION : 45 Minutes RESPONSE : Full participation. Pt. needed redirection and prompting but was able to participate fully and was pleasant.
[2016-07-24 15:50] VITALS: BP 137/79
--- NOTE | 2016-07-24 17:37 | NUR ---
Pt wanting to leave the hospital and walk to [place] Pt yelling at staff, "Take me home!" Redirected numerous times without success. PRN- Britni given, Will continue to monitor and report.
--- NOTE | 2016-07-24 18:19 | NUR ---
Per Dr. Sanchez- Give PRN dose of Atarax now. Pt continues to wander up and down hallway. Asking staff and other pt's to take her home. If not, she will start walking to [place] before it gets dark. Will continue to monitor and report.
[2016-07-24] MEDS: hydrOXYzine HCL 25 MG TABLET PO PRN (18:21)
[2016-07-24] MEDS: MIRTAZAPINE 15 MG TABLET PO SCH (19:37)
[2016-07-24] MEDS: traZODone 100 MG TABLET. PO SCH (19:37)
[2016-07-24] MEDS: MELATONIN 3 MG TABLET PO SCH (19:38)
--- NOTE | 2016-07-24 20:00 | PDOC ---
Exam Yaya Demential Exam: Yaya Note: Please also refer to the separate dictated note~for this date of service dictated separately.~Patient seen individually. Discussed the patient with Nursing staff reviewed the chart.~Reviewed interim history and current functioning. Reviewed vital signs,~Labs/ Radiology~and current medications noted below. Continue current treatment with the changes noted in the dictated addendum note Assessment: Vital Signs: Vital Signs Date Time Temp Pulse Resp B/P Pulse Ox O2 Delivery O2 Flow Rate FiO2 07/24/16 15:50 97.2 80 18 137/79 98 07/23/16 12:30 Room Air I&O Intake and Output 07/24/16 07:00 Intake Total 480 ml Balance 480 ml Intake Oral 480 ml Current Medications: Meds: Current Medications Diphenhydramine HCl (Benadryl) 25 mg Q6HRS PO ; Start 07/01/16 at 18:00; Stop at 18:00; Status DC Hydroxyzine HCl (Atarax) 25 mg PRN Q6HRS PRN PO ITCHING Last administered on 01:19; Start 07/01/16 at 15:15; Stop 07/06/16 at 04:21; Status DC Lisinopril (Prinivil) 20 mg DAILY PO Last administered on 07/24/16 08:09; Start 07/02/16 at 09:00 Lorazepam (Ativan) 0.5 mg PRN Q4HRS PRN PO ANXIETY / AGITATION Last administered on 07/02/16 21:07; Start 07/01/16 at 15:15; Stop 07/02/16 at 21:44 ; Status DC Nicotine (Nicoderm Cq 21mg) 1 patch DAILY TD Last administered on 07/24/16 08: 09; Start 07/02/16 at 09:00 Lorazepam (Ativan) 0.5 mg PRN Q4HRS PRN IV ANXIETY / AGITATION; Start 07/01/16 at 15:15; Stop 07/01/16 at 19:14; Status DC Diphenhydramine HCl (Benadryl) 25 mg PRN Q6HRS PRN IVP ITCHING; Start 07/01/16 at 15:15; Stop 07/01/16 at 19:14; Status DC Haloperidol Lactate (Haldol) 5 mg PRN Q6HRS PRN IM AGITATION; Start 07/01/16 at 15:15; Stop 07/01/16 at 19:14; Status DC Diphenhydramine HCl (Benadryl) 25 mg PRN Q6HRS PRN PO ITCHING Last administered on 07/01/16 20:56; Start 07/01/16 at 18:00 Acetaminophen/ Hydrocodone Bitart (Lortab 5/325) 1 tab PRN BID PRN PO PAIN Last administered on 07/19/16 20:05; Start 07/02/16 at 21:45 Olanzapine (Zyprexa Zydis) 2.5 mg PRN Q2HR PRN PO PSYCHOSIS Last administered on 07/24/16 17:30; Start 07/02/16 at 21:45 Mirtazapine (Remeron) 15 mg QHS PO Last administered on 07/24/16 19:37; Start 07/03/16 at 21:00 Citalopram Hydrobromide (Celexa) 10 mg DAILY PO Last administered on 07/24/16 08:11; Start 07/03/16 at 09:00 Risperidone (Risperdal) 0.25 mg BID PO Last administered on 07/10/16 08:54; Start 07/03/16 at 21:00; Stop 07/10/16 at 15:18; Status DC Docusate Calcium (Surfak) 240 mg DAILY PO Last administered on 07/24/16 08:09 ; Start 07/04/16 at 21:00 Magnesium Hydroxide (Milk Of Magnesia) 2,400 mg PRN QHS PRN PO CONSTIPATION; Start 07/04/16 at 18:15 Trazodone HCl (Desyrel) 50 mg QHS PO Last administered on 07/14/16 20:10; Start 07/05/16 at 21:00; Stop 07/15/16 at 13:52; Status DC Trazodone HCl (Desyrel) 50 mg PRN QHS PRN PO INSOMNIA Last administered on 21:27; Start 07/05/16 at 20:45; Stop 07/15/16 at 13:52; Status DC Hydroxyzine HCl (Atarax) 50 mg PRN Q2HR PRN PO Psychosis Last administered on 18:21; Start 07/06/16 at 04:30 Fentanyl (Duragesic 12mcg/ Hr) 1 patch Q3DAYS TD Last administered on 08:17; Start 07/08/16 at 18:30 Risperidone (Risperdal) 0.25 mg TID PO Last administered on 07/24/16 13:20; Start 07/10/16 at 21:00; Stop 07/24/16 at 18:29; Status DC Buspirone HCl (Buspar) 5 mg TID PO Last administered on 07/13/16 12:28; Start 07/10/16 at 21:00; Stop 07/13/16 at 15:32; Status DC Buspirone HCl (Buspar) 10 mg BID PO Last administered on 07/24/16 19:37; Start 07/13/16 at 21:00 Divalproex Sodium (Depakote Sprinkles) 125 mg BID PO Last administered on 07:46; Start 07/13/16 at 21:00; Stop 07/19/16 at 11:49; Status DC Vitamin D (Vitamin D3) 2,000 unit BIDPCLD PO Last administered on 07/24/16 16: 34; Start 07/14/16 at 12:30 Trazodone HCl (Desyrel) 100 mg QHS PO Last administered on 07/24/16 19:37; Start 07/15/16 at 21:00 Trazodone HCl (Desyrel) 100 mg PRN QHS PO ; Start 07/15/16 at 13:45; Stop at 23:01; Status DC Trazodone HCl (Desyrel) 100 mg PRN QHS PRN PO INSOMNIA Last administered on 21:19; Start 07/15/16 at 23:00 Quetiapine Fumarate (SEROquel) 50 mg 1X ONCE PO Last administered on 07/16/16 00:44; Start 07/16/16 at 00:30; Stop 07/16/16 at 00:31; Status DC Temazepam (Restoril) 30 mg PRN QHS PRN PO INSOMNIA Last administered on 19:12; Start 4/6/17 at 18:30 Divalproex Sodium (Depakote Sprinkles) 250 mg BID PO Last administered on 12:20; Start 07/19/16 at 21:00; Stop 07/22/16 at 18:23; Status DC Acetaminophen (Tylenol) 650 mg PRN Q6HRS PRN PO PAIN / TEMP Last administered on 07/22/16 15:38; Start 07/22/16 at 15:30 Divalproex Sodium (Depakote Sprinkles) 375 mg BID PO Last administered on 19:38; Start 07/22/16 at 21:00 Melatonin 6 mg QHS PO Last administered on 07/24/16 19:38; Start 07/22/16 at 21:00 Risperidone (Risperdal) 0.25 mg QID PO Last administered on 07/24/16 19:37; Start 07/24/16 at 21:00 Active Scripts Active Lisinopril 20 Mg Tablet 1 Tab PO DAILY NICODERM CQ 21mg (Nicotine) 1 Each Patch.td24 1 Patch TP DAILY Lorazepam 0.5 Mg Tablet 1 Tab PO Q4HRS PRN Hydroxyzine Hcl 25 Mg Tablet 1 Tab PO Q6HRS PRN Benadryl (Diphenhydramine Hcl) 25 Mg Capsule 1 Cap PO Q6HRS Diagnosis: Problems: (1) Dementia in Alzheimer's disease with depression (2) Dementia in Alzheimer's disease with delusions (3) Dementia, vascular, with depression (4) Dementia, vascular, with delusions (5) Impulse control disorder (6) Anxiety disorder (7) Encounter for psychological evaluation CAITLYN BHATT MD Jul 24, 2016 20:00
--- NOTE | 2016-07-24 23:35 | PN ---
DATE: 07/22/2016 PSYCHIATRIC PROGRESS NOTE This note covers elements not covered in my initial note of 07/22/2016. SUBJECTIVE: Briefly, per nursing report, the patient was awake till 2:00 a.m., slept about 5 hours after that, remains agitated, labile in her mood, certainly very confused, intermittently hallucinating. REVIEW OF SYSTEMS: No CV, , pulmonary, eye, ENT system symptoms on review. Reliability poor. MENTAL STATUS EXAMINATION: Oriented to herself. Insight, judgment, recent and remote memory, attention, concentration, fund of knowledge poor, consistent with her diagnosis mentioned in my initial note. PLAN: Add melatonin 3 mg at bedtime p.r.n. insomnia. Valproic acid level is subtherapeutic at 33, increase Depakote from 250 b.i.d. to 375 b.i.d. Check labs and a valproic acid level in 3 days. Continue current psychotropics including Risperdal and the trazodone p.r.n., hydroxyzine p.r.n., Celexa, Remeron, Zyprexa p.r.n., BuSpar, Restoril 30 mg at bedtime p.r.n. She is at times resistive to taking her vitals, went to bed after breakfast to catch up on her sleep from the previous night. MAN Quinten BHATT MD DR: ALICIA/shanon JOB#: [id number] / [id number]
--- NOTE | 2016-07-24 23:41 | PN ---
DATE: 07/23/2016 PSYCHIATRIC PROGRESS NOTE This is late entry of 07/23/2016 and covers elements not covered in my initial note. SUBJECTIVE: The patient was staffed at the treatment team meeting with the entire team and the patient's [id number], Lian attended the conference. We reviewed the patient's history, diagnosis, progress. She has been taking her medications, less angry, only had one episode of agitation, aggression earlier in the day on 07/23/2016. She still exit seeking, resistive to taking medications, appetite 95%, average sleep 5 to 6-1/2 hours. REVIEW OF SYSTEMS: No CV, , pulmonary, eye, ENT system symptoms on review. Reliability poor. MENTAL STATUS EXAMINATION: Oriented to herself. Insight, judgment, recent and remote memory, attention, concentration, fund of knowledge poor, consistent with her diagnosis mentioned in my initial note. PLAN: Continue current psychotropics mentioned in my initial note. Adjust further as clinically indicated. CAITLYN BHATT MD DR: ALICIA/shanon JOB#: [id number] / [id number]
--- NOTE | 2016-07-24 23:45 | NUR ---
Nursing Note: Pt continues to be agitated. Unable to redirect. PRN given. Will continue to monitor.
--- NOTE | 2016-07-25 00:37 | NUR ---
Behavior Intervention Response and Plan: BIRP Note: Behavior: Assumed Care of patient, patient located in Hallway at shift change. Patient exhibited the following behavior Agitated, Disorganized, Irritable. Brief assessment on rounds of vital signs, medication needs, lab studies, and pain. Treatment plan problems Dementia W BD, Altered Mental Status, and Fall Risk. Intervention: Patient assessed and the following interventions initiated safety checks 15 Minute Checks Cognitive Assessment , Head to toe Assessment , Medications. Response: After interactions and interventions patient responded in the following manner, Disorganized , Anxious ,Restless. Continue to assess behaviors and condition will continue to monitor throughout the shift as needed. 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 Continue to assess patient for changes in above assessment. Monitor for medication needs, pain, and safety concerns. Hourly rounding performed to ensure safe environment.
[2016-07-25] MEDS: traZODone 100 MG TABLET. PO PRN (00:53)
[2016-07-25 06:25] VITALS: BP 162/85
[2016-07-25 08:09] LABS: BASO # 0.1 x10^3/uL (0.0-0.2); BASO % 1 % (0-3); EOS # 0.1 x10^3/uL (0.0-0.7); EOS % 1 % (0-3); HEMATOCRIT 34.3 % (36.0-47.0); HEMOGLOBIN 11.1 g/dL (12.0-15.5); LYMPH # 3.6 x10^3/uL (1.0-4.8); LYMPH % 24 % (24-48); MEAN CORPUSCULAR HEMOGLOBIN 30 pg (25-35); MEAN CORPUSCULAR HGB CONC 33 g/dL (31-37); MEAN CORPUSCULAR VOLUME 92 fL (79-100); MONO # 1.6 x10^3/uL (0.0-1.1); MONO % 11 % (0-9); NEUT # 9.6 x10^3uL (1.8-7.7); NEUT % 64 % (31-73); PLATELET COUNT 448 x10^3/uL (140-400); RED BLOOD COUNT 3.73 x10^6/uL (3.50-5.40); RED CELL DISTRIBUTION WIDTH 15.1 % (11.5-14.5)
[2016-07-25] MEDS: NICOTINE 21MG PATCH. TD SCH (08:18)
[2016-07-25 08:19] LABS: ALBUMIN 3.2 g/dL (3.4-5.0); ALBUMIN/GLOBULIN RATIO 0.8 (1.0-1.7); ALK PHOS 97 U/L (46-116); ALT (SGPT) 20 U/L (14-59); ANION GAP 8 (6-14); AST (SGOT) 13 U/L (15-37); BLOOD UREA NITROGEN 14 mg/dL (7-20); BUN/CREATININE RATIO 20 (6-20); CALCIUM 9.4 mg/dL (8.5-10.1); CARBON DIOXIDE 30 mmol/L (21-32); CHLORIDE 105 mmol/L (98-107); CREATININE 0.7 mg/dL (0.6-1.0); GFR 82.5; GLUCOSE 88 mg/dL (70-99); POTASSIUM 3.9 mmol/L (3.5-5.1); SODIUM 143 mmol/L (136-145); TOTAL BILIRUBIN 0.3 mg/dL (0.2-1.0); TOTAL PROTEIN 7.4 g/dL (6.4-8.2)
[2016-07-25] MEDS: CITALOPRAM 10 MG TABLET. PO SCH (08:19)
[2016-07-25] MEDS: risperiDONE 0.25 MG TABLET. PO SCH ×4 (08:19→19:19)
[2016-07-25] MEDS: DOCUSATE CALCIUM 240 MG CAPSULE PO SCH (08:19)
[2016-07-25] MEDS: busPIRone 10 MG TABLET. PO SCH ×2 (08:19→19:19)
[2016-07-25] MEDS: DIVALPROEX 125 MG CAP.SPRINK PO SCH ×2 (08:19→19:18)
[2016-07-25 08:20] LABS: VAL ACID 56 mcg/mL (50-100)
[2016-07-25] MEDS: LISINOPRIL 20 MG TABLET PO SCH (08:20)
[2016-07-25 08:59] LABS: % LYMPHS 28 % (24-48); % MONOS 7 % (0-10); % SEGS 65 % (35-66); NUCLEATED RBC 1; PLT ESTIMATE INCREASED (ADEQUATE)
[2016-07-25 09:00] LABS: OVALOCYTES OCC
[2016-07-25 09:01] LABS: POLYCHROMASIA SLIGHT
[2016-07-25 09:02] LABS: ANISOCYTOSIS SLIGHT; PAPPENHEIMER BODIES OCC
[2016-07-25] MEDS: hydrOXYzine HCL 25 MG TABLET PO PRN (09:16)
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
--- NOTE | 2016-07-25 10:00 | NUR ---
Behavior Intervention Response and Plan: BIRP Note: Behavior: Assumed Care of patient, patient located in Hallway at shift change. Patient exhibited the following behavior Wandering, Defensive, Agitated. Brief assessment on rounds of vital signs, medication needs, lab studies, and pain. Treatment plan problems . Intervention: Patient assessed and the following interventions initiated safety checks 15 Minute Checks Medications , Nutrition , Call amaya in reach. Response: After interactions and interventions patient responded in the following manner, Wandering , Defensive ,Disorganized. Continue to assess behaviors and condition will continue to monitor throughout the shift as needed. 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 Continue to assess patient for changes in above assessment. Monitor for medication needs, pain, and safety concerns. Hourly rounding performed to ensure safe environment.
[2016-07-25] MEDS: CHOLECALCIFEROL (VITAMIN D3) 1,000 UNIT TABLET PO SCH ×2 (13:59→17:15)
[2016-07-25 15:45] VITALS: BP 135/62
--- NOTE | 2016-07-25 19:08 | NUR ---
Nursing Note: Patient agitated looking for her purse and asking repeatedly for her car keys so that she could go home to sleep ini her bed because she doesn't like to sleep in anyone's home but her own. Very difficult to redirect.
[2016-07-25] MEDS: MIRTAZAPINE 15 MG TABLET PO SCH (19:18)
[2016-07-25] MEDS: MELATONIN 3 MG TABLET PO SCH (19:18)
[2016-07-25] MEDS: traZODone 100 MG TABLET. PO SCH (19:18)
--- NOTE | 2016-07-25 21:59 | PDOC ---
Exam Yaya Demential Exam: Yaya Note: Please also refer to the separate dictated note~for this date of service dictated separately.~Patient seen individually. Discussed the patient with Nursing staff reviewed the chart.~Reviewed interim history and current functioning. Reviewed vital signs,~Labs/ Radiology~and current medications noted below. Continue current treatment with the changes noted in the dictated addendum note Assessment: Vital Signs: Vital Signs Date Time Temp Pulse Resp B/P Pulse Ox O2 Delivery O2 Flow Rate FiO2 07/25/16 15:45 97.9 81 16 135/62 97 Room Air I&O Intake and Output 07/25/16 07:00 Intake Total 1080 ml Balance 1080 ml Intake Oral 1080 ml # Bowel Movements 1 Labs: Laboratory Tests Test 07/25/16 07:32 White Blood Count 15.0x10^3/uL (4.0-11.0) H Red Blood Count 3.73x10^6/uL (3.50-5.40) Hemoglobin 11.1g/dL (12.0-15.5) L Hematocrit 34.3% (36.0-47.0) L Mean Corpuscular Volume 92fL (79-100) Mean Corpuscular Hemoglobin 30pg (25-35) Mean Corpuscular Hemoglobin Concent 33g/dL (31-37) Red Cell Distribution Width 15.1% (11.5-14.5) H Platelet Count 448x10^3/uL (140-400) H Neutrophils (%) (Auto) 64% (31-73) Lymphocytes (%) (Auto) 24% (24-48) Monocytes (%) (Auto) 11% (0-9) H Eosinophils (%) (Auto) 1% (0-3) Basophils (%) (Auto) 1% (0-3) Neutrophils # (Auto) 9.6x10^3uL (1.8-7.7) H Lymphocytes # (Auto) 3.6x10^3/uL (1.0-4.8) Monocytes # (Auto) 1.6x10^3/uL (0.0-1.1) H Eosinophils # (Auto) 0.1x10^3/uL (0.0-0.7) Basophils # (Auto) 0.1x10^3/uL (0.0-0.2) Segmented Neutrophils % 65% (35-66) Lymphocytes % 28% (24-48) Monocytes % 7% (0-10) Nucleated Red Blood Cells 1 Platelet Estimate Increased (ADEQUATE) Large Platelets Occ Polychromasia Slight Basophilic Stippling Present Anisocytosis Slight Pappenheimer Bodies Occ Ovalocytes Occ Sodium Level 143mmol/L (136-145) Potassium Level 3.9mmol/L (3.5-5.1) Chloride Level 105mmol/L (98-107) Carbon Dioxide Level 30mmol/L (21-32) Anion Gap 8 (6-14) Blood Urea Nitrogen 14mg/dL (7-20) Creatinine 0.7mg/dL (0.6-1.0) Estimated GFR (Cockcroft-Gault) 82.5 BUN/Creatinine Ratio 20 (6-20) Glucose Level 88mg/dL (70-99) Calcium Level 9.4mg/dL (8.5-10.1) Total Bilirubin 0.3mg/dL (0.2-1.0) Aspartate Amino Transferase (AST) 13U/L (15-37) L Alanine Aminotransferase (ALT) 20U/L (14-59) Alkaline Phosphatase 97U/L (46-116) Total Protein 7.4g/dL (6.4-8.2) Albumin 3.2g/dL (3.4-5.0) L Albumin/Globulin Ratio 0.8 (1.0-1.7) L Valproic Acid Level 56mcg/mL (50-100) Valproic Acid Last Dose Date 07/24/16 Valproic Acid Last Dose Time 2100 Current Medications: Meds: Current Medications Diphenhydramine HCl (Benadryl) 25 mg Q6HRS PO ; Start 07/01/16 at 18:00; Stop at 18:00; Status DC Hydroxyzine HCl (Atarax) 25 mg PRN Q6HRS PRN PO ITCHING Last administered on 01:19; Start 07/01/16 at 15:15; Stop 07/06/16 at 04:21; Status DC Lisinopril (Prinivil) 20 mg DAILY PO Last administered on 07/25/16 08:20; Start 07/02/16 at 09:00 Lorazepam (Ativan) 0.5 mg PRN Q4HRS PRN PO ANXIETY / AGITATION Last administered on 07/02/16 21:07; Start 07/01/16 at 15:15; Stop 07/02/16 at 21:44 ; Status DC Nicotine (Nicoderm Cq 21mg) 1 patch DAILY TD Last administered on 07/25/16 08: 18; Start 07/02/16 at 09:00 Lorazepam (Ativan) 0.5 mg PRN Q4HRS PRN IV ANXIETY / AGITATION; Start 07/01/16 at 15:15; Stop 07/01/16 at 19:14; Status DC Diphenhydramine HCl (Benadryl) 25 mg PRN Q6HRS PRN IVP ITCHING; Start 07/01/16 at 15:15; Stop 07/01/16 at 19:14; Status DC Haloperidol Lactate (Haldol) 5 mg PRN Q6HRS PRN IM AGITATION; Start 07/01/16 at 15:15; Stop 07/01/16 at 19:14; Status DC Diphenhydramine HCl (Benadryl) 25 mg PRN Q6HRS PRN PO ITCHING Last administered on 07/01/16 20:56; Start 07/01/16 at 18:00 Acetaminophen/ Hydrocodone Bitart (Lortab 5/325) 1 tab PRN BID PRN PO PAIN Last administered on 07/19/16 20:05; Start 07/02/16 at 21:45 Olanzapine (Zyprexa Zydis) 2.5 mg PRN Q2HR PRN PO PSYCHOSIS Last administered on 07/24/16 17:30; Start 07/02/16 at 21:45 Mirtazapine (Remeron) 15 mg QHS PO Last administered on 07/25/16 19:18; Start 07/03/16 at 21:00 Citalopram Hydrobromide (Celexa) 10 mg DAILY PO Last administered on 07/25/16 08:19; Start 07/03/16 at 09:00 Risperidone (Risperdal) 0.25 mg BID PO Last administered on 07/10/16 08:54; Start 07/03/16 at 21:00; Stop 07/10/16 at 15:18; Status DC Docusate Calcium (Surfak) 240 mg DAILY PO Last administered on 07/25/16 08:19 ; Start 07/04/16 at 21:00 Magnesium Hydroxide (Milk Of Magnesia) 2,400 mg PRN QHS PRN PO CONSTIPATION; Start 07/04/16 at 18:15 Trazodone HCl (Desyrel) 50 mg QHS PO Last administered on 07/14/16 20:10; Start 07/05/16 at 21:00; Stop 07/15/16 at 13:52; Status DC Trazodone HCl (Desyrel) 50 mg PRN QHS PRN PO INSOMNIA Last administered on 21:27; Start 07/05/16 at 20:45; Stop 07/15/16 at 13:52; Status DC Hydroxyzine HCl (Atarax) 50 mg PRN Q2HR PRN PO Psychosis Last administered on 09:16; Start 07/06/16 at 04:30 Fentanyl (Duragesic 12mcg/ Hr) 1 patch Q3DAYS TD Last administered on 08:17; Start 07/08/16 at 18:30 Risperidone (Risperdal) 0.25 mg TID PO Last administered on 07/24/16 13:20; Start 07/10/16 at 21:00; Stop 07/24/16 at 18:29; Status DC Buspirone HCl (Buspar) 5 mg TID PO Last administered on 07/13/16 12:28; Start 07/10/16 at 21:00; Stop 07/13/16 at 15:32; Status DC Buspirone HCl (Buspar) 10 mg BID PO Last administered on 07/25/16 19:19; Start 07/13/16 at 21:00 Divalproex Sodium (Depakote Sprinkles) 125 mg BID PO Last administered on 07:46; Start 07/13/16 at 21:00; Stop 07/19/16 at 11:49; Status DC Vitamin D (Vitamin D3) 2,000 unit BIDPCLD PO Last administered on 07/25/16 17: 15; Start 07/14/16 at 12:30 Trazodone HCl (Desyrel) 100 mg QHS PO Last administered on 07/25/16 19:18; Start 07/15/16 at 21:00 Trazodone HCl (Desyrel) 100 mg PRN QHS PO ; Start 07/15/16 at 13:45; Stop at 23:01; Status DC Trazodone HCl (Desyrel) 100 mg PRN QHS PRN PO INSOMNIA Last administered on 00:53; Start 07/15/16 at 23:00 Quetiapine Fumarate (SEROquel) 50 mg 1X ONCE PO Last administered on 07/16/16 00:44; Start 07/16/16 at 00:30; Stop 07/16/16 at 00:31; Status DC Temazepam (Restoril) 30 mg PRN QHS PRN PO INSOMNIA Last administered on 19:12; Start 07/16/16 at 18:30 Divalproex Sodium (Depakote Sprinkles) 250 mg BID PO Last administered on 12:20; Start 07/19/16 at 21:00; Stop 07/22/16 at 18:23; Status DC Acetaminophen (Tylenol) 650 mg PRN Q6HRS PRN PO PAIN / TEMP Last administered on 07/22/16 15:38; Start 07/22/16 at 15:30 Divalproex Sodium (Depakote Sprinkles) 375 mg BID PO Last administered on 19:18; Start 07/22/16 at 21:00 Melatonin 6 mg QHS PO Last administered on 07/25/16 19:18; Start 07/22/16 at 21:00 Risperidone (Risperdal) 0.25 mg QID PO Last administered on 07/25/16 19:19; Start 07/24/16 at 21:00 Active Scripts Active Lisinopril 20 Mg Tablet 1 Tab PO DAILY NICODERM CQ 21mg (Nicotine) 1 Each Patch.td24 1 Patch TP DAILY Lorazepam 0.5 Mg Tablet 1 Tab PO Q4HRS PRN Hydroxyzine Hcl 25 Mg Tablet 1 Tab PO Q6HRS PRN Benadryl (Diphenhydramine Hcl) 25 Mg Capsule 1 Cap PO Q6HRS Diagnosis: Problems: (1) Dementia in Alzheimer's disease with depression (2) Dementia in Alzheimer's disease with delusions (3) Dementia, vascular, with depression (4) Dementia, vascular, with delusions (5) Impulse control disorder (6) Anxiety disorder (7) Encounter for psychological evaluation CAITLYN BHATT MD Jul 25, 2016 21:58
[2016-07-26 07:13] VITALS: BP 125/83
[2016-07-26] MEDS: LISINOPRIL 20 MG TABLET PO SCH (08:58)
[2016-07-26] MEDS: DOCUSATE CALCIUM 240 MG CAPSULE PO SCH (08:58)
[2016-07-26] MEDS: DIVALPROEX 125 MG CAP.SPRINK PO SCH ×2 (08:58→19:06)
[2016-07-26] MEDS: CITALOPRAM 10 MG TABLET. PO SCH (08:59)
[2016-07-26] MEDS: fentaNYL 12MCG/HR 1 PATCH PATCH TD SCH (08:59)
[2016-07-26] MEDS: busPIRone 10 MG TABLET. PO SCH ×2 (08:59→19:06)
[2016-07-26] MEDS: risperiDONE 0.25 MG TABLET. PO SCH ×4 (08:59→19:06)
[2016-07-26] MEDS: NICOTINE 21MG PATCH. TD SCH (08:59)
[2016-07-26] MEDS: CHOLECALCIFEROL (VITAMIN D3) 1,000 UNIT TABLET PO SCH ×2 (09:00→17:12)
--- NOTE | 2016-07-26 10:30 | NUR ---
Behavior Intervention Response and Plan: BIRP Note: Behavior: Assumed Care of patient, patient located in Patient Room at shift change. Patient exhibited the following behavior Interactive, Compliant, Cooperative. Brief assessment on rounds of vital signs, medication needs, lab studies, and pain. Treatment plan problems . Intervention: Patient assessed and the following interventions initiated safety checks 15 Minute Checks Cognitive Assessment , Head to toe Assessment , Medications. Response: After interactions and interventions patient responded in the following manner, Calm , Compliant ,Cooperative. Continue to assess behaviors and condition will continue to monitor throughout the shift as needed. 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 Continue to assess patient for changes in above assessment. Monitor for medication needs, pain, and safety concerns. Hourly rounding performed to ensure safe environment.
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
[2016-07-26] MEDS: LORazepam 2 MG/ML VIAL IM SCH (14:52)
[2016-07-26 16:07] VITALS: BP 132/75
[2016-07-26] MEDS: traZODone 100 MG TABLET. PO SCH (19:06)
[2016-07-26] MEDS: MIRTAZAPINE 15 MG TABLET PO SCH (19:06)
[2016-07-26] MEDS: MELATONIN 3 MG TABLET PO SCH (19:06)
[2016-07-26] MEDS: TEMAZEPAM 15 MG CAPSULE PO PRN (19:08)
--- NOTE | 2016-07-26 19:57 | PN ---
DATE: 07/24/2016 PSYCHIATRIC PROGRESS NOTE This is late entry of 07/24/2016, covers elements not covered in my initial note. SUBJECTIVE: Per nursing report, the patient has been agitated all day and has been yelling, labile in her mood. REVIEW OF SYSTEMS: No CV, , eye, ENT or pulmonary system symptoms on review. Reliability poor. MENTAL STATUS EXAMINATION: Oriented to herself. Insight, judgment, recent and remote memory, attention, concentration, fund of knowledge poor, consistent with her diagnosis. Very loud, distractible, impulsive as I met with her individually. LABORATORY DATA: Reviewed. IMPRESSION: Unchanged from initial note. PLAN: Increase Risperdal from 0.5 mg 3 times a day to 0.25 mg 4 times a day, continue BuSpar, Depakote, Restoril, melatonin, hydroxyzine and Benadryl p.r.n., Remeron, Celexa along with Ativan p.r.n., and trazodone p.r.n. as noted in my initial note. Check valproic acid level in the morning, adjust Depakote to reach a therapeutic level. MAN Quinten BHATT MD DR: ALICIA/shanon JOB#: [id number] / [id number]
--- NOTE | 2016-07-26 20:01 | PN ---
DATE: 07/25/2016 PSYCHIATRIC PROGRESS NOTE This is late entry of 07/25/2016, covers elements not covered in my initial note. SUBJECTIVE: The patient slept just 2 hours previous night, agitated, yelling, exit seeking, resistive to medications. Valproic acid level is therapeutic at 56. REVIEW OF SYSTEMS: No CV, , pulmonary, eye system symptoms on review. She has had to be from the rest of the patients due to her marked mood lability and is in a separate hallway. MENTAL STATUS EXAMINATION: Oriented to herself. Insight, judgment, recent and remote memory, attention, concentration, fund of knowledge poor, consistent with her diagnosis mentioned in my initial note. LABORATORY DATA: Reviewed as above. Valproic acid level is therapeutic at 56. PLAN: Continue current psychotropics with recent adjustment of Risperdal to 0.25 mg 4 times a day. Adjust further as clinically indicated. MAN Quinten BHATT MD DR: ALICIA/shanon JOB#: [id number] / [id number]
--- NOTE | 2016-07-26 21:19 | PDOC ---
Exam Yaya Demential Exam: Yaya Note: Please also refer to the separate dictated note~for this date of service dictated separately.~Patient seen individually. Discussed the patient with Nursing staff reviewed the chart.~Reviewed interim history and current functioning. Reviewed vital signs,~Labs/ Radiology~and current medications noted below. Continue current treatment with the changes noted in the dictated addendum note Assessment: Vital Signs: Vital Signs Date Time Temp Pulse Resp B/P Pulse Ox O2 Delivery O2 Flow Rate FiO2 07/26/16 16:07 98.1 82 20 132/75 95 07/26/16 07:13 Room Air I&O Intake and Output 07/26/16 07:00 Intake Total 845 ml Balance 845 ml Intake Oral 845 ml Current Medications: Meds: Current Medications Diphenhydramine HCl (Benadryl) 25 mg Q6HRS PO ; Start 07/01/16 at 18:00; Stop at 18:00; Status DC Hydroxyzine HCl (Atarax) 25 mg PRN Q6HRS PRN PO ITCHING Last administered on 01:19; Start 07/01/16 at 15:15; Stop 07/06/16 at 04:21; Status DC Lisinopril (Prinivil) 20 mg DAILY PO Last administered on 07/26/16 08:58; Start 07/02/16 at 09:00 Lorazepam (Ativan) 0.5 mg PRN Q4HRS PRN PO ANXIETY / AGITATION Last administered on 07/02/16 21:07; Start 07/01/16 at 15:15; Stop 07/02/16 at 21:44 ; Status DC Nicotine (Nicoderm Cq 21mg) 1 patch DAILY TD Last administered on 07/26/16 08: 59; Start 07/02/16 at 09:00 Lorazepam (Ativan) 0.5 mg PRN Q4HRS PRN IV ANXIETY / AGITATION; Start 07/01/16 at 15:15; Stop 07/01/16 at 19:14; Status DC Diphenhydramine HCl (Benadryl) 25 mg PRN Q6HRS PRN IVP ITCHING; Start 07/01/16 at 15:15; Stop 07/01/16 at 19:14; Status DC Haloperidol Lactate (Haldol) 5 mg PRN Q6HRS PRN IM AGITATION; Start 07/01/16 at 15:15; Stop 07/01/16 at 19:14; Status DC Diphenhydramine HCl (Benadryl) 25 mg PRN Q6HRS PRN PO ITCHING Last administered on 07/01/16 20:56; Start 07/01/16 at 18:00 Acetaminophen/ Hydrocodone Bitart (Lortab 5/325) 1 tab PRN BID PRN PO PAIN Last administered on 07/19/16 20:05; Start 07/02/16 at 21:45 Olanzapine (Zyprexa Zydis) 2.5 mg PRN Q2HR PRN PO PSYCHOSIS Last administered on 07/24/16 17:30; Start 07/02/16 at 21:45 Mirtazapine (Remeron) 15 mg QHS PO Last administered on 07/26/16 19:06; Start 07/03/16 at 21:00 Citalopram Hydrobromide (Celexa) 10 mg DAILY PO Last administered on 07/26/16 08:59; Start 07/03/16 at 09:00 Risperidone (Risperdal) 0.25 mg BID PO Last administered on 07/10/16 08:54; Start 07/03/16 at 21:00; Stop 07/10/16 at 15:18; Status DC Docusate Calcium (Surfak) 240 mg DAILY PO Last administered on 07/26/16 08:58 ; Start 07/04/16 at 21:00 Magnesium Hydroxide (Milk Of Magnesia) 2,400 mg PRN QHS PRN PO CONSTIPATION; Start 07/04/16 at 18:15 Trazodone HCl (Desyrel) 50 mg QHS PO Last administered on 07/14/16 20:10; Start 07/05/16 at 21:00; Stop 07/15/16 at 13:52; Status DC Trazodone HCl (Desyrel) 50 mg PRN QHS PRN PO INSOMNIA Last administered on 21:27; Start 07/05/16 at 20:45; Stop 07/15/16 at 13:52; Status DC Hydroxyzine HCl (Atarax) 50 mg PRN Q2HR PRN PO Psychosis Last administered on 09:16; Start 07/06/16 at 04:30 Fentanyl (Duragesic 12mcg/ Hr) 1 patch Q3DAYS TD Last administered on 08:59; Start 07/08/16 at 18:30 Risperidone (Risperdal) 0.25 mg TID PO Last administered on 07/24/16 13:20; Start 07/10/16 at 21:00; Stop 07/24/16 at 18:29; Status DC Buspirone HCl (Buspar) 5 mg TID PO Last administered on 07/13/16 12:28; Start 07/10/16 at 21:00; Stop 07/13/16 at 15:32; Status DC Buspirone HCl (Buspar) 10 mg BID PO Last administered on 07/26/16 19:06; Start 07/13/16 at 21:00 Divalproex Sodium (Depakote Sprinkles) 125 mg BID PO Last administered on 07:46; Start 07/13/16 at 21:00; Stop 07/19/16 at 11:49; Status DC Vitamin D (Vitamin D3) 2,000 unit BIDPCLD PO Last administered on 07/26/16 17: 12; Start 07/14/16 at 12:30 Trazodone HCl (Desyrel) 100 mg QHS PO Last administered on 07/26/16 19:06; Start 07/15/16 at 21:00 Trazodone HCl (Desyrel) 100 mg PRN QHS PO ; Start 07/15/16 at 13:45; Stop at 23:01; Status DC Trazodone HCl (Desyrel) 100 mg PRN QHS PRN PO INSOMNIA Last administered on 00:53; Start 07/15/16 at 23:00 Quetiapine Fumarate (SEROquel) 50 mg 1X ONCE PO Last administered on 07/16/16 00:44; Start 07/16/16 at 00:30; Stop 07/16/16 at 00:31; Status DC Temazepam (Restoril) 30 mg PRN QHS PRN PO INSOMNIA Last administered on 19:08; Start 07/16/16 at 18:30 Divalproex Sodium (Depakote Sprinkles) 250 mg BID PO Last administered on 12:20; Start 07/19/16 at 21:00; Stop 07/22/16 at 18:23; Status DC Acetaminophen (Tylenol) 650 mg PRN Q6HRS PRN PO PAIN / TEMP Last administered on 07/22/16 15:38; Start 07/22/16 at 15:30 Divalproex Sodium (Depakote Sprinkles) 375 mg BID PO Last administered on 19:06; Start 07/22/16 at 21:00 Melatonin 6 mg QHS PO Last administered on 07/26/16 19:06; Start 07/22/16 at 21:00 Risperidone (Risperdal) 0.25 mg QID PO Last administered on 07/26/16 19:06; Start 07/24/16 at 21:00 Lorazepam (Ativan) 1 mg DAILY IM ; Start 07/27/16 at 09:00; Stop 07/27/16 at 09: 00; Status DC Lorazepam (Ativan) 1 mg 14 IM Last administered on 07/26/16 14:52; Start 07/26 at 15:00 Active Scripts Active Lisinopril 20 Mg Tablet 1 Tab PO DAILY NICODERM CQ 21mg (Nicotine) 1 Each Patch.td24 1 Patch TP DAILY Lorazepam 0.5 Mg Tablet 1 Tab PO Q4HRS PRN Hydroxyzine Hcl 25 Mg Tablet 1 Tab PO Q6HRS PRN Benadryl (Diphenhydramine Hcl) 25 Mg Capsule 1 Cap PO Q6HRS Diagnosis: Problems: (1) Encounter for psychological evaluation (2) Anxiety disorder (3) Impulse control disorder (4) Dementia, vascular, with delusions (5) Dementia, vascular, with depression (6) Dementia in Alzheimer's disease with delusions (7) Dementia in Alzheimer's disease with depression CAITLYN BHATT MD Jul 26, 2016 21:19
--- NOTE | 2016-07-26 22:16 | NUR ---
Behavior Intervention Response and Plan: BIRP Note: Behavior: Assumed Care of patient, patient located in Patient Room at shift change. Patient exhibited the following behavior Disorganized, Hallucinating, Delusions. Brief assessment on rounds of vital signs, medication needs, lab studies, and pain. Treatment plan problems:1-2 Intervention: Patient assessed and the following interventions initiated safety checks 15 Minute Checks Cognitive Assessment , Head to toe Assessment , Medications. Response: After interactions and interventions patient responded in the following manner, Restless , Delusions ,Compliant. Continue to assess behaviors and condition will continue to monitor throughout the shift as needed. At shift change pt was in an empty room w/ stripped beds; on approach pt stated that she had to take care of the children & when asked where they were she pointed @ an empty bed & there's his head. Pt given prn restoril 30mg w/ her hs meds & was able to settle without difficulty. 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 Continue to assess patient for changes in above assessment. Monitor for medication needs, pain, and safety concerns. Hourly rounding performed to ensure safe environment.
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
[2016-07-27] MEDS ORDERED: LORazepam 2 MG/ML VIAL IM SCH (09:00)
[2016-07-27 09:14] VITALS: BP 130/65
[2016-07-27] MEDS: DOCUSATE CALCIUM 240 MG CAPSULE PO SCH (09:21)
[2016-07-27] MEDS: CITALOPRAM 10 MG TABLET. PO SCH (09:21)
[2016-07-27] MEDS: DIVALPROEX 125 MG CAP.SPRINK PO SCH ×2 (09:21→19:27)
[2016-07-27] MEDS: CHOLECALCIFEROL (VITAMIN D3) 1,000 UNIT TABLET PO SCH ×2 (09:22→17:25)
[2016-07-27] MEDS: risperiDONE 0.25 MG TABLET. PO SCH ×4 (09:22→19:27)
[2016-07-27] MEDS: LISINOPRIL 20 MG TABLET PO SCH (09:22)
[2016-07-27] MEDS: NICOTINE 21MG PATCH. TD SCH (09:23)
[2016-07-27] MEDS: busPIRone 10 MG TABLET. PO SCH ×2 (09:32→19:26)
--- NOTE | 2016-07-27 13:50 | NUR ---
Behavior Intervention Response and Plan: BIRP Note: Behavior: Assumed Care of patient, patient located in Hallway at shift change. Patient exhibited the following behavior Restless, Wandering, Compliant. Brief assessment on rounds of vital signs, medication needs, lab studies, and pain. Treatment plan problems . Intervention: Patient assessed and the following interventions initiated safety checks 15 Minute Checks Cognitive Assessment , Head to toe Assessment , Medications. Response: After interactions and interventions patient responded in the following manner, Calm , Compliant ,Cooperative. Continue to assess behaviors and condition will continue to monitor throughout the shift as needed. Plan: Continue to monitor Master Treatment Plan for patient's progress toward short term goals of Decreased Anxiety, Decreased Agitation, residential goals to return to previous living setting vs placement. Continue to assess patient for changes in above assessment. Monitor for medication needs, pain, and safety concerns. Hourly rounding performed to ensure safe environment.
[2016-07-27] MEDS: LORazepam 2 MG/ML VIAL IM SCH (14:40)
--- NOTE | 2016-07-27 14:45 | NUR ---
THERAPEUTIC RECREATION GROUP NOTE TITLE :Water Color [place]rumble Art ACTIVITY : Arts [employer] Crafts GOAL : Increase creativity. Decrease stress DURATION : 45 minutes RESPONSE : No participation. Pt. was wandering the halls, talking loudly in Belarusian most of the time.
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
[2016-07-27] MEDS ORDERED: HALOPERIDOL LACT 5 MG/ML VIAL. IM ONE (16:15)
[2016-07-27] MEDS: TEMAZEPAM 15 MG CAPSULE PO PRN (19:26)
[2016-07-27] MEDS: traZODone 100 MG TABLET. PO SCH (19:26)
[2016-07-27] MEDS: MIRTAZAPINE 15 MG TABLET PO SCH (19:26)
[2016-07-27] MEDS: MELATONIN 3 MG TABLET PO SCH (19:27)
--- NOTE | 2016-07-27 20:51 | PDOC ---
Exam Yaya Demential Exam: Yaya Note: Please also refer to the separate dictated note~for this date of service dictated separately.~Patient seen individually. Discussed the patient with Nursing staff reviewed the chart.~Reviewed interim history and current functioning. Reviewed vital signs,~Labs/ Radiology~and current medications noted below. Continue current treatment with the changes noted in the dictated addendum note Assessment: Vital Signs: Vital Signs Date Time Temp Pulse Resp B/P Pulse Ox O2 Delivery O2 Flow Rate FiO2 07/27/16 09:22 87 130/65 07/27/16 09:14 98.1 07/26/16 16:07 20 95 07/26/16 07:13 Room Air I&O Intake and Output 07/27/16 07:00 Intake Total 1160 ml Balance 1160 ml Intake Oral 1160 ml Current Medications: Meds: Current Medications Diphenhydramine HCl (Benadryl) 25 mg Q6HRS PO ; Start 07/01/16 at 18:00; Stop at 18:00; Status DC Hydroxyzine HCl (Atarax) 25 mg PRN Q6HRS PRN PO ITCHING Last administered on 01:19; Start 07/01/16 at 15:15; Stop 07/06/16 at 04:21; Status DC Lisinopril (Prinivil) 20 mg DAILY PO Last administered on 07/27/16 09:22; Start 07/02/16 at 09:00 Lorazepam (Ativan) 0.5 mg PRN Q4HRS PRN PO ANXIETY / AGITATION Last administered on 07/02/16 21:07; Start 07/01/16 at 15:15; Stop 07/02/16 at 21:44 ; Status DC Nicotine (Nicoderm Cq 21mg) 1 patch DAILY TD Last administered on 07/27/16 09: 23; Start 07/02/16 at 09:00 Lorazepam (Ativan) 0.5 mg PRN Q4HRS PRN IV ANXIETY / AGITATION; Start 07/01/16 at 15:15; Stop 07/01/16 at 19:14; Status DC Diphenhydramine HCl (Benadryl) 25 mg PRN Q6HRS PRN IVP ITCHING; Start 07/01/16 at 15:15; Stop 07/01/16 at 19:14; Status DC Haloperidol Lactate (Haldol) 5 mg PRN Q6HRS PRN IM AGITATION; Start 07/01/16 at 15:15; Stop 07/01/16 at 19:14; Status DC Diphenhydramine HCl (Benadryl) 25 mg PRN Q6HRS PRN PO ITCHING Last administered on 07/01/16 20:56; Start 07/01/16 at 18:00 Acetaminophen/ Hydrocodone Bitart (Lortab 5/325) 1 tab PRN BID PRN PO PAIN Last administered on 07/19/16 20:05; Start 07/02/16 at 21:45 Olanzapine (Zyprexa Zydis) 2.5 mg PRN Q2HR PRN PO PSYCHOSIS Last administered on 07/24/16 17:30; Start 07/02/16 at 21:45 Mirtazapine (Remeron) 15 mg QHS PO Last administered on 07/27/16 19:26; Start 07/03/16 at 21:00 Citalopram Hydrobromide (Celexa) 10 mg DAILY PO Last administered on 07/27/16 09:21; Start 07/03/16 at 09:00 Risperidone (Risperdal) 0.25 mg BID PO Last administered on 07/10/16 08:54; Start 07/03/16 at 21:00; Stop 07/10/16 at 15:18; Status DC Docusate Calcium (Surfak) 240 mg DAILY PO Last administered on 07/27/16 09:21 ; Start 07/04/16 at 21:00 Magnesium Hydroxide (Milk Of Magnesia) 2,400 mg PRN QHS PRN PO CONSTIPATION; Start 07/04/16 at 18:15 Trazodone HCl (Desyrel) 50 mg QHS PO Last administered on 07/14/16 20:10; Start 07/05/16 at 21:00; Stop 07/15/16 at 13:52; Status DC Trazodone HCl (Desyrel) 50 mg PRN QHS PRN PO INSOMNIA Last administered on 21:27; Start 07/05/16 at 20:45; Stop 07/15/16 at 13:52; Status DC Hydroxyzine HCl (Atarax) 50 mg PRN Q2HR PRN PO Psychosis Last administered on 09:16; Start 07/06/16 at 04:30 Fentanyl (Duragesic 12mcg/ Hr) 1 patch Q3DAYS TD Last administered on 08:59; Start 07/08/16 at 18:30 Risperidone (Risperdal) 0.25 mg TID PO Last administered on 07/24/16 13:20; Start 07/10/16 at 21:00; Stop 07/24/16 at 18:29; Status DC Buspirone HCl (Buspar) 5 mg TID PO Last administered on 07/13/16 12:28; Start 07/10/16 at 21:00; Stop 07/13/16 at 15:32; Status DC Buspirone HCl (Buspar) 10 mg BID PO Last administered on 07/27/16 09:32; Start 07/13/16 at 21:00; Stop 07/27/16 at 18:29; Status DC Divalproex Sodium (Depakote Sprinkles) 125 mg BID PO Last administered on 07:46; Start 07/13/16 at 21:00; Stop 07/19/16 at 11:49; Status DC Vitamin D (Vitamin D3) 2,000 unit BIDPCLD PO Last administered on 07/27/16 17: 25; Start 07/14/16 at 12:30 Trazodone HCl (Desyrel) 100 mg QHS PO Last administered on 07/27/16 19:26; Start 07/15/16 at 21:00 Trazodone HCl (Desyrel) 100 mg PRN QHS PO ; Start 07/15/16 at 13:45; Stop at 23:01; Status DC Trazodone HCl (Desyrel) 100 mg PRN QHS PRN PO INSOMNIA Last administered on 00:53; Start 07/15/16 at 23:00 Quetiapine Fumarate (SEROquel) 50 mg 1X ONCE PO Last administered on 07/16/16 00:44; Start 07/16/16 at 00:30; Stop 07/16/16 at 00:31; Status DC Temazepam (Restoril) 30 mg PRN QHS PRN PO INSOMNIA Last administered on 19:26; Start 07/16/16 at 18:30 Divalproex Sodium (Depakote Sprinkles) 250 mg BID PO Last administered on 12:20; Start 07/19/16 at 21:00; Stop 07/22/16 at 18:23; Status DC Acetaminophen (Tylenol) 650 mg PRN Q6HRS PRN PO PAIN / TEMP Last administered on 07/22/16 15:38; Start 07/22/16 at 15:30 Divalproex Sodium (Depakote Sprinkles) 375 mg BID PO Last administered on 19:27; Start 07/22/16 at 21:00 Melatonin 6 mg QHS PO Last administered on 07/27/16 19:27; Start 07/22/16 at 21:00 Risperidone (Risperdal) 0.25 mg QID PO Last administered on 07/27/16 19:27; Start 07/24/16 at 21:00 Lorazepam (Ativan) 1 mg DAILY IM ; Start 07/27/16 at 09:00; Stop 07/27/16 at 09: 00; Status DC Lorazepam (Ativan) 1 mg 14 IM Last administered on 07/27/16 14:40; Start 07/26 at 15:00 Haloperidol Lactate (Haldol) 5 mg 1X ONCE IM Last administered on 07/27/16 16 :15; Start 07/27/16 at 16:15; Stop 07/27/16 at 16:16; Status DC Haloperidol Lactate (Haldol) 5 mg 14 IM ; Start 07/28/16 at 14:00 Buspirone HCl (Buspar) 10 mg TID PO Last administered on 07/27/16 19:26; Start 07/27/16 at 21:00 Trazodone HCl (Desyrel) 12.5 mg TIDWMEALS PO ; Start 07/28/16 at 08:00 Active Scripts Active Lisinopril 20 Mg Tablet 1 Tab PO DAILY NICODERM CQ 21mg (Nicotine) 1 Each Patch.td24 1 Patch TP DAILY Lorazepam 0.5 Mg Tablet 1 Tab PO Q4HRS PRN Hydroxyzine Hcl 25 Mg Tablet 1 Tab PO Q6HRS PRN Benadryl (Diphenhydramine Hcl) 25 Mg Capsule 1 Cap PO Q6HRS Diagnosis: Problems: (1) Dementia in Alzheimer's disease with depression (2) Dementia in Alzheimer's disease with delusions (3) Dementia, vascular, with depression (4) Dementia, vascular, with delusions (5) Impulse control disorder (6) Anxiety disorder (7) Encounter for psychological evaluation CAITLYN BHATT MD Jul 27, 2016 20:51
--- NOTE | 2016-07-27 21:08 | PN ---
DATE: 07/26/2016 PSYCHIATRIC PROGRESS NOTE This is late entry of 07/26/2016, covers elements not covered in my initial note. SUBJECTIVE: The patient had some mood lability, disruptive behaviors, cursing, combative, agitated, more so after the 1400 hours visiting hours. Nursing staff had called me during the day and we added p.r.n.s to help with this. REVIEW OF SYSTEMS: No CV, , pulmonary, eye, ENT system symptoms on review. Reliability poor. MENTAL STATUS EXAMINATION: The patient was speaking rapidly in German as I met with her, oblivious of her circumstances. Insight, judgment, recent and remote memory, attention, concentration, fund of knowledge poor, consistent with her diagnosis mentioned in my initial note. PLAN: Continue psychotropics mentioned in my initial note, adjust as clinically indicated. MAN Quinten BHATT MD DR: ALICIA/shanon JOB#: [id number] / [id number]
--- NOTE | 2016-07-27 23:43 | NUR ---
Behavior Intervention Response and Plan: BIRP Note: Behavior: Assumed Care of patient, patient located in Hallway at shift change. Patient exhibited the following behavior Wandering, Restless, Irritable. Brief assessment on rounds of vital signs, medication needs, lab studies, and pain. Treatment plan problems 1 and 2. Intervention: Patient assessed and the following interventions initiated safety checks 15 Minute Checks Cognitive Assessment , Head to toe Assessment , Medications. Response: After interactions and interventions patient responded in the following manner, Restless , Calm ,Compliant. Continue to assess behaviors and condition will continue to monitor throughout the shift as needed. 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 Continue to assess patient for changes in above assessment. Monitor for medication needs, pain, and safety concerns. Hourly rounding performed to ensure safe environment.
[2016-07-28 08:19] LABS: BILIRUBIN,URINE NEG (NEG); CLARITY,URINE HAZY; COLOR,URINE YELLOW; GLUCOSE,URINE NEG (NEG); NITRITE,URINE NEG (NEG); UROBILINOGEN,URINE 0.2 mg/dL (0.2 mg/dL)
[2016-07-28 08:20] LABS: BACTERIA,URINE MOD /HPF (0-FEW); HYALINE CASTS, URINE OCC /HPF; SQUAMOUS EPITHELIAL CELL,UR FEW /LPF
[2016-07-28 08:36] VITALS: BP 151/90
[2016-07-28] MEDS: DOCUSATE CALCIUM 240 MG CAPSULE PO SCH (08:37)
[2016-07-28] MEDS: NICOTINE 21MG PATCH. TD SCH (08:38)
[2016-07-28] MEDS: busPIRone 10 MG TABLET. PO SCH ×3 (08:38→19:40)
[2016-07-28] MEDS: DIVALPROEX 125 MG CAP.SPRINK PO SCH ×2 (08:38→19:40)
[2016-07-28] MEDS: risperiDONE 0.25 MG TABLET. PO SCH ×4 (08:38→19:40)
[2016-07-28] MEDS: LISINOPRIL 20 MG TABLET PO SCH (08:38)
[2016-07-28] MEDS: CITALOPRAM 10 MG TABLET. PO SCH (08:38)
[2016-07-28] MEDS: CHOLECALCIFEROL (VITAMIN D3) 1,000 UNIT TABLET PO SCH ×2 (08:38→17:09)
[2016-07-28] MEDS: traZODone 50 MG TABLET. PO SCH ×3 (08:39→17:00)
--- NOTE | 2016-07-28 11:15 | NUR ---
THERAPEUTIC RECREATION GROUP NOTE TITLE :Movement to Music: Flexibility ACTIVITY : Movement/ Exercise GOAL : Increase morale, attention, flexibility. Decrease stress/anxiety. DURATION : 45 Minutes RESPONSE : Minimal participation. Pt. sat outside with the group for most of the time; however, even with repeat prompting, Pt. hardly participated. She was quiet and closed her eyes often.
[2016-07-28] MEDS: LORazepam 2 MG/ML VIAL IM SCH (13:47)
--- NOTE | 2016-07-28 13:52 | NUR ---
Behavior Intervention Response and Plan: BIRP Note: Behavior: Assumed Care of patient, patient located in Dining Room at shift change. Patient exhibited the following behavior Disorganized, Resistive, Drowsy. Brief assessment on rounds of vital signs, medication needs, lab studies, and pain. Treatment plan problems . Intervention: Patient assessed and the following interventions initiated safety checks 15 Minute Checks Cognitive Assessment , Head to toe Assessment , Medications. Response: After interactions and interventions patient responded in the following manner, Calm , Compliant ,Cooperative. Continue to assess behaviors and condition will continue to monitor throughout the shift as needed. 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 Continue to assess patient for changes in above assessment. Monitor for medication needs, pain, and safety concerns. Hourly rounding performed to ensure safe environment.
[2016-07-28] MEDS ORDERED: HALOPERIDOL LACT 5 MG/ML VIAL. IM SCH (14:00)
--- NOTE | 2016-07-28 14:20 | NUR ---
THERAPEUTIC RECREATION GROUP NOTE TITLE :Beach Ball Bop ACTIVITY : Exercise and Movement GOAL : Increase alertness/ arousal, endurance/strength, and social interaction. DURATION : 60 Minutes RESPONSE : No participation. Pt. was in bed for a little while then walked halls with nurse.
--- NOTE | 2016-07-28 14:48 | NUR ---
SW unable to seek out placement due to pt notes. SW left message for son.
[2016-07-28 14:49] LABS: BASO # 0.1 x10^3/uL (0.0-0.2); BASO % 1 % (0-3); EOS # 0.2 x10^3/uL (0.0-0.7); EOS % 1 % (0-3); HEMATOCRIT 33.3 % (36.0-47.0); HEMOGLOBIN 11.1 g/dL (12.0-15.5); LYMPH # 3.5 x10^3/uL (1.0-4.8); LYMPH % 26 % (24-48); MEAN CORPUSCULAR HEMOGLOBIN 31 pg (25-35); MEAN CORPUSCULAR HGB CONC 33 g/dL (31-37); MEAN CORPUSCULAR VOLUME 92 fL (79-100); MONO # 1.5 x10^3/uL (0.0-1.1); MONO % 11 % (0-9); NEUT # 8.3 x10^3uL (1.8-7.7); NEUT % 61 % (31-73); PLATELET COUNT 432 x10^3/uL (140-400); RED BLOOD COUNT 3.63 x10^6/uL (3.50-5.40); RED CELL DISTRIBUTION WIDTH 15.4 % (11.5-14.5); WHITE BLOOD COUNT 13.7 x10^3/uL (4.0-11.0)
[2016-07-28 14:58] LABS: ALBUMIN 2.9 g/dL (3.4-5.0); ALBUMIN/GLOBULIN RATIO 0.7 (1.0-1.7); CALCIUM 8.7 mg/dL (8.5-10.1); CREATININE 0.8 mg/dL (0.6-1.0); GFR 70.7; POTASSIUM 3.9 mmol/L (3.5-5.1); TOTAL BILIRUBIN 0.2 mg/dL (0.2-1.0); TOTAL PROTEIN 6.8 g/dL (6.4-8.2)
[2016-07-28 15:11] VITALS: BP 109/68
--- NOTE | 2016-07-28 18:55 | PN ---
DATE: 07/27/2016 PSYCHIATRIC PROGRESS NOTE This is late entry of 07/27/2016, covers elements not covered in my initial note. SUBJECTIVE: I have been called by the nursing staff several times during the day on account of the patient's agitation, marked mood lability, irritability that had failed all interventions on psychotropics. She is additionally refusing medications, even the Ativan IM 1 mg was ineffective, we did start Haldol 5 mg IM daily and added trazodone 12.5 mg 3 times a day, increased the BuSpar to 10 mg 3 times a day and by the time I saw her the evening of 07/27/2016, she was confused, anxious, labile, but improved from earlier in the day. REVIEW OF SYSTEMS: No CV, , pulmonary, eye, ENT system symptoms on review. Reliability poor. MENTAL STATUS EXAMINATION: Oriented to herself. Insight, judgment, recent and remote memory, attention, concentration, fund of knowledge poor, consistent with her diagnosis mentioned in my initial note. PLAN: Continue psychotropics mentioned in my initial note other than the changes noted above. As noted during the day, she has been wandering, pacing, agitated, worse after the visit with her family, hallucinating. CAITLYN BHATT MD DR: ALICIA/shanon JOB#: [id number] / [id number]
[2016-07-28] MEDS: MELATONIN 3 MG TABLET PO SCH (19:39)
[2016-07-28] MEDS: MIRTAZAPINE 15 MG TABLET PO SCH (19:40)
[2016-07-28] MEDS: traZODone 100 MG TABLET. PO SCH (19:40)
[2016-07-28] MEDS: TEMAZEPAM 15 MG CAPSULE PO PRN (19:48)
--- NOTE | 2016-07-28 20:49 | PDOC ---
Exam Yaya Demential Exam: Yaya Note: Please also refer to the separate dictated note~for this date of service dictated separately.~Patient seen individually. Discussed the patient with Nursing staff reviewed the chart.~Reviewed interim history and current functioning. Reviewed vital signs,~Labs/ Radiology~and current medications noted below. Continue current treatment with the changes noted in the dictated addendum note Assessment: Vital Signs: Vital Signs Date Time Temp Pulse Resp B/P Pulse Ox O2 Delivery O2 Flow Rate FiO2 07/28/16 15:11 97.1 85 18 109/68 95 07/28/16 08:36 Room Air I&O Intake and Output 07/28/16 07:00 Intake Total 1080 ml Balance 1080 ml Intake Oral 1080 ml # Voids 3 # Bowel Movements 1 Labs: Laboratory Tests Test 07/28/16 07:25 07/28/16 14:35 Urine Collection Type Unknown Urine Color Yellow Urine Clarity Hazy Urine pH 7.0 Urine Specific [place] 1.020 Urine Protein Neg (NEG-TRACE) Urine Glucose (UA) Negmg/dL (NEG) Urine Ketones (Stick) Negmg/dL (NEG) Urine Blood Trace (NEG) Urine Nitrite Neg (NEG) Urine Bilirubin Neg (NEG) Urine Urobilinogen Dipstick 0.2mg/dL (0.2 mg/dL) Urine Leukocyte Esterase Trace (NEG) Urine RBC 1-2/HPF (0-2) Urine WBC 5-10/HPF (0-4) Urine Squamous Epithelial Cells Few/LPF Urine Bacteria Mod/HPF (0-FEW) Urine Hyaline Casts Occ/HPF Urine Mucus Slight/LPF White Blood Count 13.7x10^3/uL (4.0-11.0) H Red Blood Count 3.63x10^6/uL (3.50-5.40) Hemoglobin 11.1g/dL (12.0-15.5) L Hematocrit 33.3% (36.0-47.0) L Mean Corpuscular Volume 92fL (79-100) Mean Corpuscular Hemoglobin 31pg (25-35) Mean Corpuscular Hemoglobin Concent 33g/dL (31-37) Red Cell Distribution Width 15.4% (11.5-14.5) H Platelet Count 432x10^3/uL (140-400) H Neutrophils (%) (Auto) 61% (31-73) Lymphocytes (%) (Auto) 26% (24-48) Monocytes (%) (Auto) 11% (0-9) H Eosinophils (%) (Auto) 1% (0-3) Basophils (%) (Auto) 1% (0-3) Neutrophils # (Auto) 8.3x10^3uL (1.8-7.7) H Lymphocytes # (Auto) 3.5x10^3/uL (1.0-4.8) Monocytes # (Auto) 1.5x10^3/uL (0.0-1.1) H Eosinophils # (Auto) 0.2x10^3/uL (0.0-0.7) Basophils # (Auto) 0.1x10^3/uL (0.0-0.2) Sodium Level 143mmol/L (136-145) Potassium Level 3.9mmol/L (3.5-5.1) Chloride Level 107mmol/L (98-107) Carbon Dioxide Level 29mmol/L (21-32) Anion Gap 7 (6-14) Blood Urea Nitrogen 18mg/dL (7-20) Creatinine 0.8mg/dL (0.6-1.0) Estimated GFR (Cockcroft-Gault) 70.7 BUN/Creatinine Ratio 23 (6-20) H Glucose Level 96mg/dL (70-99) Calcium Level 8.7mg/dL (8.5-10.1) Magnesium Level 2.0mg/dL (1.8-2.4) Total Bilirubin 0.2mg/dL (0.2-1.0) Aspartate Amino Transferase (AST) 12U/L (15-37) L Alanine Aminotransferase (ALT) 16U/L (14-59) Alkaline Phosphatase 87U/L (46-116) Total Protein 6.8g/dL (6.4-8.2) Albumin 2.9g/dL (3.4-5.0) L Albumin/Globulin Ratio 0.7 (1.0-1.7) L Current Medications: Meds: Current Medications Diphenhydramine HCl (Benadryl) 25 mg Q6HRS PO ; Start 07/01/16 at 18:00; Stop at 18:00; Status DC Hydroxyzine HCl (Atarax) 25 mg PRN Q6HRS PRN PO ITCHING Last administered on 01:19; Start 07/01/16 at 15:15; Stop 07/06/16 at 04:21; Status DC Lisinopril (Prinivil) 20 mg DAILY PO Last administered on 07/28/16 08:38; Start 07/02/16 at 09:00 Lorazepam (Ativan) 0.5 mg PRN Q4HRS PRN PO ANXIETY / AGITATION Last administered on 07/02/16 21:07; Start 07/01/16 at 15:15; Stop 07/02/16 at 21:44 ; Status DC Nicotine (Nicoderm Cq 21mg) 1 patch DAILY TD Last administered on 07/28/16 08: 38; Start 07/02/16 at 09:00 Lorazepam (Ativan) 0.5 mg PRN Q4HRS PRN IV ANXIETY / AGITATION; Start 07/01/16 at 15:15; Stop 07/01/16 at 19:14; Status DC Diphenhydramine HCl (Benadryl) 25 mg PRN Q6HRS PRN IVP ITCHING; Start 07/01/16 at 15:15; Stop 07/01/16 at 19:14; Status DC Haloperidol Lactate (Haldol) 5 mg PRN Q6HRS PRN IM AGITATION; Start 07/01/16 at 15:15; Stop 07/01/16 at 19:14; Status DC Diphenhydramine HCl (Benadryl) 25 mg PRN Q6HRS PRN PO ITCHING Last administered on 07/01/16 20:56; Start 07/01/16 at 18:00 Acetaminophen/ Hydrocodone Bitart (Lortab 5/325) 1 tab PRN BID PRN PO PAIN Last administered on 07/19/16 20:05; Start 07/02/16 at 21:45 Olanzapine (Zyprexa Zydis) 2.5 mg PRN Q2HR PRN PO PSYCHOSIS Last administered on 07/24/16 17:30; Start 07/02/16 at 21:45 Mirtazapine (Remeron) 15 mg QHS PO Last administered on 07/28/16 19:40; Start 07/03/16 at 21:00 Citalopram Hydrobromide (Celexa) 10 mg DAILY PO Last administered on 07/28/16 08:38; Start 07/03/16 at 09:00 Risperidone (Risperdal) 0.25 mg BID PO Last administered on 07/10/16 08:54; Start 07/03/16 at 21:00; Stop 07/10/16 at 15:18; Status DC Docusate Calcium (Surfak) 240 mg DAILY PO Last administered on 07/28/16 08:37 ; Start 07/04/16 at 21:00 Magnesium Hydroxide (Milk Of Magnesia) 2,400 mg PRN QHS PRN PO CONSTIPATION; Start 07/04/16 at 18:15 Trazodone HCl (Desyrel) 50 mg QHS PO Last administered on 07/14/16 20:10; Start 07/05/16 at 21:00; Stop 07/15/16 at 13:52; Status DC Trazodone HCl (Desyrel) 50 mg PRN QHS PRN PO INSOMNIA Last administered on 21:27; Start 07/05/16 at 20:45; Stop 07/15/16 at 13:52; Status DC Hydroxyzine HCl (Atarax) 50 mg PRN Q2HR PRN PO Psychosis Last administered on 09:16; Start 07/06/16 at 04:30 Fentanyl (Duragesic 12mcg/ Hr) 1 patch Q3DAYS TD Last administered on 08:59; Start 07/08/16 at 18:30 Risperidone (Risperdal) 0.25 mg TID PO Last administered on 07/24/16 13:20; Start 07/10/16 at 21:00; Stop 07/24/16 at 18:29; Status DC Buspirone HCl (Buspar) 5 mg TID PO Last administered on 07/13/16 12:28; Start 07/10/16 at 21:00; Stop 07/13/16 at 15:32; Status DC Buspirone HCl (Buspar) 10 mg BID PO Last administered on 07/27/16 09:32; Start 07/13/16 at 21:00; Stop 07/27/16 at 18:29; Status DC Divalproex Sodium (Depakote Sprinkles) 125 mg BID PO Last administered on 07:46; Start 07/13/16 at 21:00; Stop 07/19/16 at 11:49; Status DC Vitamin D (Vitamin D3) 2,000 unit BIDPCLD PO Last administered on 07/28/16 17: 09; Start 07/14/16 at 12:30 Trazodone HCl (Desyrel) 100 mg QHS PO Last administered on 07/28/16 19:40; Start 07/15/16 at 21:00 Trazodone HCl (Desyrel) 100 mg PRN QHS PO ; Start 07/15/16 at 13:45; Stop at 23:01; Status DC Trazodone HCl (Desyrel) 100 mg PRN QHS PRN PO INSOMNIA Last administered on 00:53; Start 07/15/16 at 23:00 Quetiapine Fumarate (SEROquel) 50 mg 1X ONCE PO Last administered on 07/16/16 00:44; Start 07/16/16 at 00:30; Stop 07/16/16 at 00:31; Status DC Temazepam (Restoril) 30 mg PRN QHS PRN PO INSOMNIA Last administered on 19:48; Start 07/16/16 at 18:30 Divalproex Sodium (Depakote Sprinkles) 250 mg BID PO Last administered on 12:20; Start 07/19/16 at 21:00; Stop 07/22/16 at 18:23; Status DC Acetaminophen (Tylenol) 650 mg PRN Q6HRS PRN PO PAIN / TEMP Last administered on 07/22/16 15:38; Start 07/22/16 at 15:30 Divalproex Sodium (Depakote Sprinkles) 375 mg BID PO Last administered on 19:40; Start 07/22/16 at 21:00 Melatonin 6 mg QHS PO Last administered on 07/28/16 19:39; Start 07/22/16 at 21:00 Risperidone (Risperdal) 0.25 mg QID PO Last administered on 07/28/16 19:40; Start 07/24/16 at 21:00 Lorazepam (Ativan) 1 mg DAILY IM ; Start 07/27/16 at 09:00; Stop 07/27/16 at 09: 00; Status DC Lorazepam (Ativan) 1 mg 14 IM Last administered on 07/28/16 13:47; Start 07/26 at 15:00 Haloperidol Lactate (Haldol) 5 mg 1X ONCE IM Last administered on 07/27/16 16 :15; Start 07/27/16 at 16:15; Stop 07/27/16 at 16:16; Status DC Haloperidol Lactate (Haldol) 5 mg 14 IM Last administered on 07/28/16 13:46; Start 07/28/16 at 14:00 Buspirone HCl (Buspar) 10 mg TID PO Last administered on 07/28/16 19:40; Start 07/27/16 at 21:00 Trazodone HCl (Desyrel) 12.5 mg TIDWMEALS PO Last administered on 07/28/16 12: 04; Start 07/28/16 at 08:00 Active Scripts Active Lisinopril 20 Mg Tablet 1 Tab PO DAILY NICODERM CQ 21mg (Nicotine) 1 Each Patch.td24 1 Patch TP DAILY Lorazepam 0.5 Mg Tablet 1 Tab PO Q4HRS PRN Hydroxyzine Hcl 25 Mg Tablet 1 Tab PO Q6HRS PRN Benadryl (Diphenhydramine Hcl) 25 Mg Capsule 1 Cap PO Q6HRS Diagnosis: Problems: (1) Dementia in Alzheimer's disease with depression (2) Dementia in Alzheimer's disease with delusions (3) Dementia, vascular, with depression (4) Dementia, vascular, with delusions (5) Impulse control disorder (6) Anxiety disorder (7) Encounter for psychological evaluation CAITLYN BHATT MD Jul 28, 2016 20:49
--- NOTE | 2016-07-29 01:00 | NUR ---
Behavior Intervention Response and Plan: BIRP Note: Behavior: Assumed Care of patient, patient located in Hallway at shift change. Patient exhibited the following behavior Restless, Disorganized, Compliant. Brief assessment on rounds of vital signs, medication needs, lab studies, and pain. Treatment plan problems Dementai with BD, Althered thoght process and Fall Risk. Intervention: Patient assessed and the following interventions initiated safety checks 15 Minute Checks Cognitive Assessment , Head to toe Assessment , Medications. Response: After interactions and interventions patient responded in the following manner, Calm , Disorganized ,Drowsy. Continue to assess behaviors and condition will continue to monitor throughout the shift as needed. 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 Continue to assess patient for changes in above assessment. Monitor for medication needs, pain, and safety concerns. Hourly rounding performed to ensure safe environment.
[2016-07-29 05:23] VITALS: BP 129/81
--- NOTE | 2016-07-29 05:30 | NUR ---
Nursing Note: Patient awoke and immediately c/o abdominal pain 6/10 with facial grimacing. Vitals taken, physician notified, and orders placed. Will continue to monitor.
--- NOTE | 2016-07-29 06:09 | RAD ---
Abdomen, single view Indication: Severe abdominal pain. Time of exam 5:37 a.m. A single supine radiograph of the abdomen demonstrates the bowel gas pattern to be nonobstructive. No pathologic calcifications are seen. There appears to be a left pleural effusion and bibasilar atelectasis. Postop changes to the left hip are noted. Impression: - No acute abnormality in the abdomen is identified. - Small left pleural effusion and bibasilar atelectasis. Electronically signed by: Mark Alfonso MD (Jul 29, 2016 06:08:25)
[2016-07-29] MEDS ORDERED: FOSFOMYCIN TROMETHAMINE 3 GM PACKET PO ONE (06:30)
[2016-07-29 06:38] LABS: BASO # 0.1 x10^3/uL (0.0-0.2); BASO % 0 % (0-3); EOS % 0 % (0-3); HEMATOCRIT 33.6 % (36.0-47.0); HEMOGLOBIN 11.1 g/dL (12.0-15.5); LYMPH # 2.2 x10^3/uL (1.0-4.8); LYMPH % 13 % (24-48); MEAN CORPUSCULAR HEMOGLOBIN 30 pg (25-35); MEAN CORPUSCULAR HGB CONC 33 g/dL (31-37); MEAN CORPUSCULAR VOLUME 91 fL (79-100); MONO # 1.6 x10^3/uL (0.0-1.1); MONO % 9 % (0-9); NEUT # 13.5 x10^3uL (1.8-7.7); NEUT % 77 % (31-73); PLATELET COUNT 438 x10^3/uL (140-400); RED BLOOD COUNT 3.69 x10^6/uL (3.50-5.40); RED CELL DISTRIBUTION WIDTH 15.4 % (11.5-14.5); WHITE BLOOD COUNT 17.4 x10^3/uL (4.0-11.0)
[2016-07-29 07:25] LABS: % LYMPHS 18 % (24-48); % MONOS 6 % (0-10); % SEGS 76 % (35-66)
[2016-07-29 07:26] LABS: PLT ESTIMATE INCREASED (ADEQUATE)
[2016-07-29] MEDS: fentaNYL 12MCG/HR 1 PATCH PATCH TD SCH (09:00)
[2016-07-29] MEDS: traZODone 50 MG TABLET. PO SCH ×3 (10:11→17:11)
[2016-07-29] MEDS: DOCUSATE CALCIUM 240 MG CAPSULE PO SCH (10:13)
[2016-07-29] MEDS: LISINOPRIL 20 MG TABLET PO SCH (10:13)
[2016-07-29] MEDS: busPIRone 10 MG TABLET. PO SCH ×3 (10:13→19:15)
[2016-07-29] MEDS: CITALOPRAM 10 MG TABLET. PO SCH (10:13)
[2016-07-29] MEDS: risperiDONE 0.25 MG TABLET. PO SCH ×4 (10:13→19:16)
[2016-07-29] MEDS: DIVALPROEX 125 MG CAP.SPRINK PO SCH ×2 (10:14→19:15)
[2016-07-29] MEDS: NICOTINE 21MG PATCH. TD SCH (10:14)
--- NOTE | 2016-07-29 12:00 | NUR ---
Behavior Intervention Response and Plan: BIRP Note: Behavior: Assumed Care of patient, patient located in Hallway at shift change. Patient exhibited the following behavior Disorganized, Cooperative, Drowsy. Brief assessment on rounds of vital signs, medication needs, lab studies, and pain. Treatment plan problems . Intervention: Patient assessed and the following interventions initiated safety checks 15 Minute Checks Call amaya in reach , Medications , Nutrition. Response: After interactions and interventions patient responded in the following manner, Drowsy , Disorganized ,Cooperative. Continue to assess behaviors and condition will continue to monitor throughout the shift as needed. Plan: Continue to monitor Master Treatment Plan for patient's progress toward short term goals of Decreased Agitation, Decreased Anxiety, detention goals to return to previous living setting vs placement. Continue to assess patient for changes in above assessment. Monitor for medication needs, pain, and safety concerns. Hourly rounding performed to ensure safe environment.
--- NOTE | 2016-07-29 12:01 | RAD ---
Indication:Abdominal pain Grayscale images of the abdomen were obtained. The examination is somewhat limited. The patient could not fully cooperate for the exam. Comparison none Liver:No focal mass lesion is seen in the visualized liver. Gallbladder:Normal. The common bile duct diameter of approximately 4 mm is also normal Spleen:Not optimally visualized and appearing somewhat small. Otherwise grossly normal Pancreas:As visualized normal Kidneys:Unremarkable Abdominal aorta and IVC:Normal Ancillary findings:Tiny left pleural effusion Impression:No definite acute or significant finding seen on abdominal ultrasound exam
[2016-07-29] MEDS: CHOLECALCIFEROL (VITAMIN D3) 1,000 UNIT TABLET PO SCH ×2 (12:30→17:13)
--- NOTE | 2016-07-29 13:09 | NUR ---
Informed Dr. Hauser of WBC 17.4 and the results of labs. U/S abdominal complete-Impression- "No definite significant finding seen on abdominal u/s exam." KUB- Impression-"No acute abnormality in the abdomen is identified. Small left pleural effusion and bibasilar atelectasis." No new orders at this time.
--- NOTE | 2016-07-29 13:45 | NUR ---
Placed call to Dr. Sanchez updated on pts status. Pt is drowsy this am and through out lunch. Held 1230 Trazodone,1300 Risperidal, [address] Sanchez- DC Ativan IM and Haldol IM. Will continue to monitor and report. Addendum: 07/29/16 at 1557 by KATHRIN QUINTERO RN Hold psych. medications if pt is drowsy or lethargic.
[2016-07-29 16:07] VITALS: BP 123/80
[2016-07-29] MEDS: MELATONIN 3 MG TABLET PO SCH (19:15)
[2016-07-29] MEDS: traZODone 100 MG TABLET. PO SCH (19:16)
[2016-07-29] MEDS: MIRTAZAPINE 15 MG TABLET PO SCH (19:16)
--- NOTE | 2016-07-29 19:51 | PN ---
DATE: 07/28/2016 PSYCHIATRIC PROGRESS NOTE This is late entry of 07/28/2016, covers elements not covered in my initial note. SUBJECTIVE: Per nursing report, the patient is doing better from a behavioral standpoint. She is less agitated, less aggressive, less psychotic, somewhat sedated, wandering the hallways, certainly very confused. UA is positive, has been sent for C and S. REVIEW OF SYSTEMS: No CV, , pulmonary, eye, ENT system symptoms on review. Reliability poor. MENTAL STATUS EXAMINATION: Oriented to herself. Insight, judgment, recent and remote memory, attention, concentration, fund of knowledge poor, consistent with her diagnosis mentioned in my initial note. PLAN: Continue scheduled Ativan and Haldol daily together with hydroxyzine, Benadryl, Celexa, Remeron, Zyprexa p.r.n., Risperdal, BuSpar, Depakote, Restoril and the scheduled trazodone 12.5 t.i.d. along with bedtime p.r.n. for insomnia. CAITLYN BHATT MD DR: ALICIA/shanon JOB#: [id number] / [id number]
--- NOTE | 2016-07-29 20:43 | NUR ---
Behavior Intervention Response and Plan: BIRP Note: Behavior: Assumed Care of patient, patient located in Hallway at shift change. Patient exhibited the following behavior Calm, Disorganized, Restless. Brief assessment on rounds of vital signs, medication needs, lab studies, and pain. Treatment plan problems . Intervention: Patient assessed and the following interventions initiated safety checks 15 Minute Checks Cognitive Assessment , Head to toe Assessment , Medications. Response: After interactions and interventions patient responded in the following manner, Appropriate , Compliant ,Cooperative. Continue to assess behaviors and condition will continue to monitor throughout the shift as needed. Plan: Continue to monitor Master Treatment Plan for patient's progress toward short term goals of Decreased Agitation, Decreased Anxiety, mcc goals to return to previous living setting vs placement. Continue to assess patient for changes in above assessment. Monitor for medication needs, pain, and safety concerns. Hourly rounding performed to ensure safe environment.
--- NOTE | 2016-07-29 20:50 | PDOC ---
Exam Yaya Demential Exam: Yaya Note: Please also refer to the separate dictated note~for this date of service dictated separately.~Patient seen individually. Discussed the patient with Nursing staff reviewed the chart.~Reviewed interim history and current functioning. Reviewed vital signs,~Labs/ Radiology~and current medications noted below. Continue current treatment with the changes noted in the dictated addendum note Assessment: Vital Signs: Vital Signs Date Time Temp Pulse Resp B/P Pulse Ox O2 Delivery O2 Flow Rate FiO2 07/29/16 16:07 97.4 77 16 123/80 97 07/29/16 13:00 Room Air I&O Intake and Output 07/29/16 07:00 Intake Total 720 ml Balance 720 ml Intake Oral 720 ml Labs: Laboratory Tests Test 07/29/16 06:15 White Blood Count 17.4x10^3/uL (4.0-11.0) H Red Blood Count 3.69x10^6/uL (3.50-5.40) Hemoglobin 11.1g/dL (12.0-15.5) L Hematocrit 33.6% (36.0-47.0) L Mean Corpuscular Volume 91fL (79-100) Mean Corpuscular Hemoglobin 30pg (25-35) Mean Corpuscular Hemoglobin Concent 33g/dL (31-37) Red Cell Distribution Width 15.4% (11.5-14.5) H Platelet Count 438x10^3/uL (140-400) H Neutrophils (%) (Auto) 77% (31-73) H Lymphocytes (%) (Auto) 13% (24-48) L Monocytes (%) (Auto) 9% (0-9) Eosinophils (%) (Auto) 0% (0-3) Basophils (%) (Auto) 0% (0-3) Neutrophils # (Auto) 13.5x10^3uL (1.8-7.7) H Lymphocytes # (Auto) 2.2x10^3/uL (1.0-4.8) Monocytes # (Auto) 1.6x10^3/uL (0.0-1.1) H Eosinophils # (Auto) 0.0x10^3/uL (0.0-0.7) Basophils # (Auto) 0.1x10^3/uL (0.0-0.2) Segmented Neutrophils % 76% (35-66) H Lymphocytes % 18% (24-48) L Monocytes % 6% (0-10) Platelet Estimate Increased (ADEQUATE) Current Medications: Meds: Current Medications Diphenhydramine HCl (Benadryl) 25 mg Q6HRS PO ; Start 07/01/16 at 18:00; Stop at 18:00; Status DC Hydroxyzine HCl (Atarax) 25 mg PRN Q6HRS PRN PO ITCHING Last administered on 01:19; Start 07/01/16 at 15:15; Stop 07/06/16 at 04:21; Status DC Lisinopril (Prinivil) 20 mg DAILY PO Last administered on 07/29/16 10:13; Start 07/02/16 at 09:00 Lorazepam (Ativan) 0.5 mg PRN Q4HRS PRN PO ANXIETY / AGITATION Last administered on 07/02/16 21:07; Start 07/01/16 at 15:15; Stop 07/02/16 at 21:44 ; Status DC Nicotine (Nicoderm Cq 21mg) 1 patch DAILY TD Last administered on 07/29/16 10: 14; Start 07/02/16 at 09:00 Lorazepam (Ativan) 0.5 mg PRN Q4HRS PRN IV ANXIETY / AGITATION; Start 07/01/16 at 15:15; Stop 07/01/16 at 19:14; Status DC Diphenhydramine HCl (Benadryl) 25 mg PRN Q6HRS PRN IVP ITCHING; Start 07/01/16 at 15:15; Stop 07/01/16 at 19:14; Status DC Haloperidol Lactate (Haldol) 5 mg PRN Q6HRS PRN IM AGITATION; Start 07/01/16 at 15:15; Stop 07/01/16 at 19:14; Status DC Diphenhydramine HCl (Benadryl) 25 mg PRN Q6HRS PRN PO ITCHING Last administered on 07/01/16 20:56; Start 07/01/16 at 18:00 Acetaminophen/ Hydrocodone Bitart (Lortab 5/325) 1 tab PRN BID PRN PO PAIN Last administered on 07/19/16 20:05; Start 07/02/16 at 21:45 Olanzapine (Zyprexa Zydis) 2.5 mg PRN Q2HR PRN PO PSYCHOSIS Last administered on 07/24/16 17:30; Start 07/02/16 at 21:45 Mirtazapine (Remeron) 15 mg QHS PO Last administered on 07/29/16 19:16; Start 07/03/16 at 21:00 Citalopram Hydrobromide (Celexa) 10 mg DAILY PO Last administered on 07/29/16 10:13; Start 07/03/16 at 09:00 Risperidone (Risperdal) 0.25 mg BID PO Last administered on 07/10/16 08:54; Start 07/03/16 at 21:00; Stop 07/10/16 at 15:18; Status DC Docusate Calcium (Surfak) 240 mg DAILY PO Last administered on 07/29/16 10:13 ; Start 07/04/16 at 21:00 Magnesium Hydroxide (Milk Of Magnesia) 2,400 mg PRN QHS PRN PO CONSTIPATION; Start 07/04/16 at 18:15 Trazodone HCl (Desyrel) 50 mg QHS PO Last administered on 07/14/16 20:10; Start 07/05/16 at 21:00; Stop 07/15/16 at 13:52; Status DC Trazodone HCl (Desyrel) 50 mg PRN QHS PRN PO INSOMNIA Last administered on 21:27; Start 07/05/16 at 20:45; Stop 07/15/16 at 13:52; Status DC Hydroxyzine HCl (Atarax) 50 mg PRN Q2HR PRN PO Psychosis Last administered on 09:16; Start 07/06/16 at 04:30 Fentanyl (Duragesic 12mcg/ Hr) 1 patch Q3DAYS TD Last administered on 09:00; Start 07/08/16 at 18:30 Risperidone (Risperdal) 0.25 mg TID PO Last administered on 07/24/16 13:20; Start 07/10/16 at 21:00; Stop 07/24/16 at 18:29; Status DC Buspirone HCl (Buspar) 5 mg TID PO Last administered on 07/13/16 12:28; Start 07/10/16 at 21:00; Stop 07/13/16 at 15:32; Status DC Buspirone HCl (Buspar) 10 mg BID PO Last administered on 07/27/16 09:32; Start 07/13/16 at 21:00; Stop 07/27/16 at 18:29; Status DC Divalproex Sodium (Depakote Sprinkles) 125 mg BID PO Last administered on 07:46; Start 07/13/16 at 21:00; Stop 07/19/16 at 11:49; Status DC Vitamin D (Vitamin D3) 2,000 unit BIDPCLD PO Last administered on 07/29/16 17: 13; Start 07/14/16 at 12:30 Trazodone HCl (Desyrel) 100 mg QHS PO Last administered on 07/29/16 19:16; Start 07/15/16 at 21:00 Trazodone HCl (Desyrel) 100 mg PRN QHS PO ; Start 07/15/16 at 13:45; Stop at 23:01; Status DC Trazodone HCl (Desyrel) 100 mg PRN QHS PRN PO INSOMNIA Last administered on 00:53; Start 07/15/16 at 23:00 Quetiapine Fumarate (SEROquel) 50 mg 1X ONCE PO Last administered on 07/16/16 00:44; Start 07/16/16 at 00:30; Stop 07/16/16 at 00:31; Status DC Temazepam (Restoril) 30 mg PRN QHS PRN PO INSOMNIA Last administered on 19:48; Start 07/16/16 at 18:30 Divalproex Sodium (Depakote Sprinkles) 250 mg BID PO Last administered on 12:20; Start 07/19/16 at 21:00; Stop 07/22/16 at 18:23; Status DC Acetaminophen (Tylenol) 650 mg PRN Q6HRS PRN PO PAIN / TEMP Last administered on 07/22/16 15:38; Start 07/22/16 at 15:30 Divalproex Sodium (Depakote Sprinkles) 375 mg BID PO Last administered on 19:15; Start 07/22/16 at 21:00 Melatonin 6 mg QHS PO Last administered on 07/29/16 19:15; Start 07/22/16 at 21:00 Risperidone (Risperdal) 0.25 mg QID PO Last administered on 07/29/16 19:16; Start 07/24/16 at 21:00 Lorazepam (Ativan) 1 mg DAILY IM ; Start 07/27/16 at 09:00; Stop 07/27/16 at 09: 00; Status DC Lorazepam (Ativan) 1 mg 14 IM Last administered on 07/28/16 13:47; Start 07/26 at 15:00; Stop 07/29/16 at 14:13; Status DC Haloperidol Lactate (Haldol) 5 mg 1X ONCE IM Last administered on 07/27/16 16 :15; Start 07/27/16 at 16:15; Stop 07/27/16 at 16:16; Status DC Haloperidol Lactate (Haldol) 5 mg 14 IM Last administered on 07/28/16 13:46; Start 07/28/16 at 14:00; Stop 07/29/16 at 14:13; Status DC Buspirone HCl (Buspar) 10 mg TID PO Last administered on 07/29/16 19:15; Start 07/27/16 at 21:00 Trazodone HCl (Desyrel) 12.5 mg TIDWMEALS PO Last administered on 07/29/16 17: 11; Start 07/28/16 at 08:00 Fosfomycin Tromethamine (Monurol) 3 gm 1X ONCE PO Last administered on 06:27; Start 07/29/16 at 06:30; Stop 07/29/16 at 06:32; Status DC Active Scripts Active Lisinopril 20 Mg Tablet 1 Tab PO DAILY NICODERM CQ 21mg (Nicotine) 1 Each Patch.td24 1 Patch TP DAILY Lorazepam 0.5 Mg Tablet 1 Tab PO Q4HRS PRN Hydroxyzine Hcl 25 Mg Tablet 1 Tab PO Q6HRS PRN Benadryl (Diphenhydramine Hcl) 25 Mg Capsule 1 Cap PO Q6HRS Diagnosis: Problems: (1) Encounter for psychological evaluation (2) Anxiety disorder (3) Impulse control disorder (4) Dementia, vascular, with delusions (5) Dementia, vascular, with depression (6) Dementia in Alzheimer's disease with delusions (7) Dementia in Alzheimer's disease with depression CAITLYN BHATT MD Jul 29, 2016 20:50
[2016-07-30] MEDS: NICOTINE 21MG PATCH. TD SCH (07:35)
[2016-07-30] MEDS: DIVALPROEX 125 MG CAP.SPRINK PO SCH ×2 (07:36→19:09)
[2016-07-30] MEDS: DOCUSATE CALCIUM 240 MG CAPSULE PO SCH (07:37)
[2016-07-30] MEDS: busPIRone 10 MG TABLET. PO SCH ×4 (07:37→19:09)
[2016-07-30] MEDS: CITALOPRAM 10 MG TABLET. PO SCH (07:39)
[2016-07-30] MEDS: risperiDONE 0.25 MG TABLET. PO SCH ×4 (07:39→19:07)
[2016-07-30] MEDS: traZODone 50 MG TABLET. PO SCH ×3 (07:43→16:21)
[2016-07-30] MEDS: LISINOPRIL 20 MG TABLET PO SCH (07:43)
--- NOTE | 2016-07-30 10:00 | NUR ---
Dr. Hauser aware of Lab results and U/S abd., KUB. No new orders at this time.
--- NOTE | 2016-07-30 10:57 | NUR ---
Behavior Intervention Response and Plan: BIRP Note: Behavior: Assumed Care of patient, patient located in Hallway at shift change. Patient exhibited the following behavior Calm, Disorganized, Compliant. Brief assessment on rounds of vital signs, medication needs, lab studies, and pain. Treatment plan problems . Intervention: Patient assessed and the following interventions initiated safety checks 15 Minute Checks Medications , Nutrition , Personal Alarm in place. Response: After interactions and interventions patient responded in the following manner, Calm , Disorganized ,Compliant. Continue to assess behaviors and condition will continue to monitor throughout the shift as needed. 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 Continue to assess patient for changes in above assessment. Monitor for medication needs, pain, and safety concerns. Hourly rounding performed to ensure safe environment.
--- NOTE | 2016-07-30 11:10 | NUR ---
Pt was sleeping on the couch in dayroom when SW went to meet with her. Pt stated hi however closed her eyes again. SW allowed pt to countiue to rest.
--- NOTE | 2016-07-30 11:15 | NUR ---
THERAPEUTIC RECREATION GROUP NOTE TITLE :Movement to Music: Flexibility ACTIVITY : Movement/ Exercise GOAL : Increase morale, attention, flexibility. Decrease stress/anxiety. DURATION : 35 Minutes RESPONSE : No participation. Pt. sleeping in day room
--- NOTE | 2016-07-30 11:29 | NUR ---
Care assessment was completed by Nuzhat with aging, paperwork left for pt family to sign.
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
[2016-07-30] MEDS: CHOLECALCIFEROL (VITAMIN D3) 1,000 UNIT TABLET PO SCH ×2 (12:46→16:20)
--- NOTE | 2016-07-30 14:45 | NUR ---
THERAPEUTIC RECREATION GROUP NOTE TITLE :Bin or Basket: [employer] history, quiz and game ACTIVITY : Activities and Games GOAL : Stimulate memory, increase socialization DURATION : 60 minutes RESPONSE : Minimal participation. Pt. wandered around the group room, exit seeking and needed repeat redirections. She sat with the group most of the time but did not contribute to the conversation and only once helped with the game.
[2016-07-30 15:27] VITALS: BP 106/70
[2016-07-30] MEDS: MELATONIN 3 MG TABLET PO SCH (19:08)
[2016-07-30] MEDS: traZODone 100 MG TABLET. PO SCH (19:09)
[2016-07-30] MEDS: MIRTAZAPINE 15 MG TABLET PO SCH (19:09)
--- NOTE | 2016-07-30 20:55 | PDOC ---
Exam Yaya Demential Exam: Yaya Note: Please also refer to the separate dictated note~for this date of service dictated separately.~Patient seen individually. Discussed the patient with Nursing staff reviewed the chart.~Reviewed interim history and current functioning. Reviewed vital signs,~Labs/ Radiology~and current medications noted below. Continue current treatment with the changes noted in the dictated addendum note Assessment: Vital Signs: Vital Signs Date Time Temp Pulse Resp B/P Pulse Ox O2 Delivery O2 Flow Rate FiO2 07/30/16 15:27 98.8 81 18 106/70 94 07/29/16 13:00 Room Air I&O Intake and Output 07/30/16 07:00 Intake Total 480 ml Balance 480 ml Intake Oral 480 ml # Voids 1 Current Medications: Meds: Current Medications Diphenhydramine HCl (Benadryl) 25 mg Q6HRS PO ; Start 07/01/16 at 18:00; Stop at 18:00; Status DC Hydroxyzine HCl (Atarax) 25 mg PRN Q6HRS PRN PO ITCHING Last administered on 01:19; Start 07/01/16 at 15:15; Stop 07/06/16 at 04:21; Status DC Lisinopril (Prinivil) 20 mg DAILY PO Last administered on 07/30/16 07:43; Start 07/02/16 at 09:00 Lorazepam (Ativan) 0.5 mg PRN Q4HRS PRN PO ANXIETY / AGITATION Last administered on 07/02/16 21:07; Start 07/01/16 at 15:15; Stop 07/02/16 at 21:44 ; Status DC Nicotine (Nicoderm Cq 21mg) 1 patch DAILY TD Last administered on 07/30/16 07: 35; Start 07/02/16 at 09:00 Lorazepam (Ativan) 0.5 mg PRN Q4HRS PRN IV ANXIETY / AGITATION; Start 07/01/16 at 15:15; Stop 07/01/16 at 19:14; Status DC Diphenhydramine HCl (Benadryl) 25 mg PRN Q6HRS PRN IVP ITCHING; Start 07/01/16 at 15:15; Stop 07/01/16 at 19:14; Status DC Haloperidol Lactate (Haldol) 5 mg PRN Q6HRS PRN IM AGITATION; Start 07/01/16 at 15:15; Stop 07/01/16 at 19:14; Status DC Diphenhydramine HCl (Benadryl) 25 mg PRN Q6HRS PRN PO ITCHING Last administered on 07/01/16 20:56; Start 07/01/16 at 18:00 Acetaminophen/ Hydrocodone Bitart (Lortab 5/325) 1 tab PRN BID PRN PO PAIN Last administered on 07/19/16 20:05; Start 07/02/16 at 21:45 Olanzapine (Zyprexa Zydis) 2.5 mg PRN Q2HR PRN PO PSYCHOSIS Last administered on 07/24/16 17:30; Start 07/02/16 at 21:45 Mirtazapine (Remeron) 15 mg QHS PO Last administered on 07/30/16 19:09; Start 07/03/16 at 21:00 Citalopram Hydrobromide (Celexa) 10 mg DAILY PO Last administered on 07/30/16 07:39; Start 07/03/16 at 09:00 Risperidone (Risperdal) 0.25 mg BID PO Last administered on 07/10/16 08:54; Start 07/03/16 at 21:00; Stop 07/10/16 at 15:18; Status DC Docusate Calcium (Surfak) 240 mg DAILY PO Last administered on 07/30/16 07:37 ; Start 07/04/16 at 21:00 Magnesium Hydroxide (Milk Of Magnesia) 2,400 mg PRN QHS PRN PO CONSTIPATION; Start 07/04/16 at 18:15 Trazodone HCl (Desyrel) 50 mg QHS PO Last administered on 07/14/16 20:10; Start 07/05/16 at 21:00; Stop 07/15/16 at 13:52; Status DC Trazodone HCl (Desyrel) 50 mg PRN QHS PRN PO INSOMNIA Last administered on 21:27; Start 07/05/16 at 20:45; Stop 07/15/16 at 13:52; Status DC Hydroxyzine HCl (Atarax) 50 mg PRN Q2HR PRN PO Psychosis Last administered on 09:16; Start 07/06/16 at 04:30 Fentanyl (Duragesic 12mcg/ Hr) 1 patch Q3DAYS TD Last administered on 09:00; Start 07/08/16 at 18:30 Risperidone (Risperdal) 0.25 mg TID PO Last administered on 07/24/16 13:20; Start 07/10/16 at 21:00; Stop 07/24/16 at 18:29; Status DC Buspirone HCl (Buspar) 5 mg TID PO Last administered on 07/13/16 12:28; Start 07/10/16 at 21:00; Stop 07/13/16 at 15:32; Status DC Buspirone HCl (Buspar) 10 mg BID PO Last administered on 07/27/16 09:32; Start 07/13/16 at 21:00; Stop 07/27/16 at 18:29; Status DC Divalproex Sodium (Depakote Sprinkles) 125 mg BID PO Last administered on 07:46; Start 07/13/16 at 21:00; Stop 07/19/16 at 11:49; Status DC Vitamin D (Vitamin D3) 2,000 unit BIDPCLD PO Last administered on 07/30/16 16: 20; Start 07/14/16 at 12:30 Trazodone HCl (Desyrel) 100 mg QHS PO Last administered on 07/30/16 19:09; Start 07/15/16 at 21:00 Trazodone HCl (Desyrel) 100 mg PRN QHS PO ; Start 07/15/16 at 13:45; Stop at 23:01; Status DC Trazodone HCl (Desyrel) 100 mg PRN QHS PRN PO INSOMNIA Last administered on 00:53; Start 07/15/16 at 23:00 Quetiapine Fumarate (SEROquel) 50 mg 1X ONCE PO Last administered on 07/16/16 00:44; Start 07/16/16 at 00:30; Stop 07/16/16 at 00:31; Status DC Temazepam (Restoril) 30 mg PRN QHS PRN PO INSOMNIA Last administered on 19:48; Start 07/16/16 at 18:30 Divalproex Sodium (Depakote Sprinkles) 250 mg BID PO Last administered on 12:20; Start 07/19/16 at 21:00; Stop 07/22/16 at 18:23; Status DC Acetaminophen (Tylenol) 650 mg PRN Q6HRS PRN PO PAIN / TEMP Last administered on 07/22/16 15:38; Start 07/22/16 at 15:30 Divalproex Sodium (Depakote Sprinkles) 375 mg BID PO Last administered on 19:09; Start 07/22/16 at 21:00 Melatonin 6 mg QHS PO Last administered on 07/30/16 19:08; Start 07/22/16 at 21:00 Risperidone (Risperdal) 0.25 mg QID PO Last administered on 07/30/16 19:07; Start 07/24/16 at 21:00 Lorazepam (Ativan) 1 mg DAILY IM ; Start 07/27/16 at 09:00; Stop 07/27/16 at 09: 00; Status DC Lorazepam (Ativan) 1 mg 14 IM Last administered on 07/28/16 13:47; Start 07/26 at 15:00; Stop 07/29/16 at 14:13; Status DC Haloperidol Lactate (Haldol) 5 mg 1X ONCE IM Last administered on 07/27/16 16 :15; Start 07/27/16 at 16:15; Stop 07/27/16 at 16:16; Status DC Haloperidol Lactate (Haldol) 5 mg 14 IM Last administered on 07/28/16 13:46; Start 07/28/16 at 14:00; Stop 07/29/16 at 14:13; Status DC Buspirone HCl (Buspar) 10 mg TID PO Last administered on 07/30/16 19:09; Start 07/27/16 at 21:00 Trazodone HCl (Desyrel) 12.5 mg TIDWMEALS PO Last administered on 07/30/16 16: 21; Start 07/28/16 at 08:00 Fosfomycin Tromethamine (Monurol) 3 gm 1X ONCE PO Last administered on t 06:27; Start 07/29/16 at 06:30; Stop 07/29/16 at 06:32; Status DC Active Scripts Active Lisinopril 20 Mg Tablet 1 Tab PO DAILY NICODERM CQ 21mg (Nicotine) 1 Each Patch.td24 1 Patch TP DAILY Lorazepam 0.5 Mg Tablet 1 Tab PO Q4HRS PRN Hydroxyzine Hcl 25 Mg Tablet 1 Tab PO Q6HRS PRN Benadryl (Diphenhydramine Hcl) 25 Mg Capsule 1 Cap PO Q6HRS Diagnosis: Problems: (1) Encounter for psychological evaluation (2) Anxiety disorder (3) Impulse control disorder (4) Dementia, vascular, with delusions (5) Dementia, vascular, with depression (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
[2016-07-31 06:34] VITALS: BP 139/22
[2016-07-31] MEDS: LISINOPRIL 20 MG TABLET PO SCH (09:00)
[2016-07-31 09:20] VITALS: BP 111/65
[2016-07-31] MEDS: DOCUSATE CALCIUM 240 MG CAPSULE PO SCH (09:21)
[2016-07-31] MEDS: traZODone 50 MG TABLET. PO SCH ×3 (09:21→18:16)
[2016-07-31] MEDS: risperiDONE 0.25 MG TABLET. PO SCH ×4 (09:22→20:14)
[2016-07-31] MEDS: busPIRone 10 MG TABLET. PO SCH ×3 (09:22→20:15)
[2016-07-31] MEDS: CITALOPRAM 10 MG TABLET. PO SCH (09:22)
[2016-07-31] MEDS: NICOTINE 21MG PATCH. TD SCH (09:23)
[2016-07-31] MEDS: DIVALPROEX 125 MG CAP.SPRINK PO SCH ×2 (09:23→20:15)
[2016-07-31] MEDS: CHOLECALCIFEROL (VITAMIN D3) 1,000 UNIT TABLET PO SCH ×2 (12:30→18:16)
--- NOTE | 2016-07-31 14:00 | NUR ---
Behavior Intervention Response and Plan: BIRP Note: Behavior: Assumed Care of patient, patient located in Hallway at shift change. Patient exhibited the following behavior Calm, Motor Retardation, Compliant. Brief assessment on rounds of vital signs, medication needs, lab studies, and pain. Treatment plan problems . Intervention: Patient assessed and the following interventions initiated safety checks 15 Minute Checks Call amaya in reach , Medications , Nutrition. Response: After interactions and interventions patient responded in the following manner, Interactive , Disorganized ,Compliant. Continue to assess behaviors and condition will continue to monitor throughout the shift as needed. 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 Continue to assess patient for changes in above assessment. Monitor for medication needs, pain, and safety concerns. Hourly rounding performed to ensure safe environment.
[2016-07-31 15:19] VITALS: BP 127/73
--- NOTE | 2016-07-31 16:00 | NUR ---
THERAPEUTIC RECREATION GROUP NOTE TITLE :Michel Quiroga Plan[employer] Painting ACTIVITY : Arts and Crafts GOAL : Increase creativity, fine motor, socialization. DURATION : 60 minutes RESPONSE : Full participation. Pt. worked independently and stayed focused the entire time. She occasionally made a joke and socialized with others. She needed minimal prompting to stay on task and was agreeable and pleasant the entire time.
--- NOTE | 2016-07-31 19:00 | NUR ---
THERAPEUTIC RECREATION GROUP NOTE TITLE :Complete the popular phrase/ idiom ACTIVITY : Cognitive Stimulation GOAL : Stimulate memory, Increase problem solving DURATION : 60 minutes RESPONSE : Full participation. Pt. was wandering at the start of the group and needed repeat directions to join the activity. She was compliant and was able to fill in the blanks with and without clues. She was social and made jokes occasionally.
--- NOTE | 2016-07-31 19:53 | PN ---
DATE: 07/29/2016 PSYCHIATRIC PROGRESS NOTE This is late entry of 07/29/2016, covers elements not covered in my initial note. SUBJECTIVE: Overall, the patient was somewhat sedated and Haldol, Ativan were held, then we will go ahead and stop it. White cell count was elevated at 17.4. Dr. Hauser administered Monurol and I will defer medical management to Dr. Hauser/Dr. Groves. She remains confused, irritated somewhat sedated as above. REVIEW OF SYSTEMS: No CV, , pulmonary, eye, ENT system symptoms on review. Reliability poor. MENTAL STATUS EXAMINATION: Oriented to herself. Insight, judgment, recent and remote memory, attention, concentration, fund of knowledge poor, consistent with her diagnosis mentioned in my initial note. PLAN: Continue current psychotropic, stop the scheduled IM Haldol, Ativan. Valproic acid level is therapeutic at 56. All current psychotropics mentioned in initial note. CAITLYN BHATT MD DR: ALICIA/shanon JOB#: [id number] / [id number]
--- NOTE | 2016-07-31 20:00 | PN ---
DATE: 07/30/2016 PSYCHIATRIC PROGRESS NOTE This is late entry of 07/30/2016, covers elements not covered in my initial note. SUBJECTIVE: The patient's valproic acid level is 56, WBC 17.4. KUB shows bilateral atelectasis, possible left pleural effusion, we will defer to Dr. Hauser. Appetite 70%, sleeping about 8 hours, remains confused. Less sedated during the day 07/30/2016. The patient was also staffed at a treatment team meeting with the entire team on 07/30/2016, discussed diagnosis, progress and prognosis. REVIEW OF SYSTEMS: No CV, , pulmonary, eye, ENT system symptoms on review. Reliability poor. MENTAL STATUS EXAMINATION: Oriented to herself. Insight, judgment, recent and remote memory, attention, concentration, fund of knowledge poor, consistent with her diagnosis mentioned in my initial note. PLAN: Continue current psychotropics, may have to reduce these if sedation resurfaces. CAITLYN BHATT MD DR: ALICIA/shanon JOB#: [id number] / [id number]
[2016-07-31] MEDS: MELATONIN 3 MG TABLET PO SCH (20:14)
[2016-07-31] MEDS: MIRTAZAPINE 15 MG TABLET PO SCH (20:14)
[2016-07-31] MEDS: traZODone 100 MG TABLET. PO SCH (20:15)
--- NOTE | 2016-07-31 20:47 | PDOC ---
Exam Yaya Demential Exam: Yaya Note: Please also refer to the separate dictated note~for this date of service dictated separately.~Patient seen individually. Discussed the patient with Nursing staff reviewed the chart.~Reviewed interim history and current functioning. Reviewed vital signs,~Labs/ Radiology~and current medications noted below. Continue current treatment with the changes noted in the dictated addendum note Assessment: Vital Signs: Vital Signs Date Time Temp Pulse Resp B/P Pulse Ox O2 Delivery O2 Flow Rate FiO2 07/31/16 15:19 97.8 90 18 127/73 98 07/29/16 13:00 Room Air I&O Intake and Output 07/31/16 07:00 Intake Total 720 ml Balance 720 ml Intake Oral 720 ml Current Medications: Meds: Current Medications Diphenhydramine HCl (Benadryl) 25 mg Q6HRS PO ; Start 07/01/16 at 18:00; Stop at 18:00; Status DC Hydroxyzine HCl (Atarax) 25 mg PRN Q6HRS PRN PO ITCHING Last administered on 01:19; Start 07/01/16 at 15:15; Stop 07/06/16 at 04:21; Status DC Lisinopril (Prinivil) 20 mg DAILY PO Last administered on 07/30/16 07:43; Start 07/02/16 at 09:00 Lorazepam (Ativan) 0.5 mg PRN Q4HRS PRN PO ANXIETY / AGITATION Last administered on 07/02/16 21:07; Start 07/01/16 at 15:15; Stop 07/02/16 at 21:44 ; Status DC Nicotine (Nicoderm Cq 21mg) 1 patch DAILY TD Last administered on 07/31/16 09: 23; Start 07/02/16 at 09:00 Lorazepam (Ativan) 0.5 mg PRN Q4HRS PRN IV ANXIETY / AGITATION; Start 07/01/16 at 15:15; Stop 07/01/16 at 19:14; Status DC Diphenhydramine HCl (Benadryl) 25 mg PRN Q6HRS PRN IVP ITCHING; Start 07/01/16 at 15:15; Stop 07/01/16 at 19:14; Status DC Haloperidol Lactate (Haldol) 5 mg PRN Q6HRS PRN IM AGITATION; Start 07/01/16 at 15:15; Stop 07/01/16 at 19:14; Status DC Diphenhydramine HCl (Benadryl) 25 mg PRN Q6HRS PRN PO ITCHING Last administered on 07/01/16 20:56; Start 07/01/16 at 18:00 Acetaminophen/ Hydrocodone Bitart (Lortab 5/325) 1 tab PRN BID PRN PO PAIN Last administered on 07/19/16 20:05; Start 07/02/16 at 21:45 Olanzapine (Zyprexa Zydis) 2.5 mg PRN Q2HR PRN PO PSYCHOSIS Last administered on 07/24/16 17:30; Start 07/02/16 at 21:45 Mirtazapine (Remeron) 15 mg QHS PO Last administered on 07/31/16 20:14; Start 07/03/16 at 21:00 Citalopram Hydrobromide (Celexa) 10 mg DAILY PO Last administered on 07/31/16 09:22; Start 07/03/16 at 09:00 Risperidone (Risperdal) 0.25 mg BID PO Last administered on 07/10/16 08:54; Start 07/03/16 at 21:00; Stop 07/10/16 at 15:18; Status DC Docusate Calcium (Surfak) 240 mg DAILY PO Last administered on 07/31/16 09:21 ; Start 07/04/16 at 21:00 Magnesium Hydroxide (Milk Of Magnesia) 2,400 mg PRN QHS PRN PO CONSTIPATION; Start 07/04/16 at 18:15 Trazodone HCl (Desyrel) 50 mg QHS PO Last administered on 07/14/16 20:10; Start 07/05/16 at 21:00; Stop 07/15/16 at 13:52; Status DC Trazodone HCl (Desyrel) 50 mg PRN QHS PRN PO INSOMNIA Last administered on 21:27; Start 07/05/16 at 20:45; Stop 07/15/16 at 13:52; Status DC Hydroxyzine HCl (Atarax) 50 mg PRN Q2HR PRN PO Psychosis Last administered on 09:16; Start 07/06/16 at 04:30 Fentanyl (Duragesic 12mcg/ Hr) 1 patch Q3DAYS TD Last administered on 09:00; Start 07/08/16 at 18:30 Risperidone (Risperdal) 0.25 mg TID PO Last administered on 07/24/16 13:20; Start 07/10/16 at 21:00; Stop 07/24/16 at 18:29; Status DC Buspirone HCl (Buspar) 5 mg TID PO Last administered on 07/13/16 12:28; Start 07/10/16 at 21:00; Stop 07/13/16 at 15:32; Status DC Buspirone HCl (Buspar) 10 mg BID PO Last administered on 07/27/16 09:32; Start 07/13/16 at 21:00; Stop 07/27/16 at 18:29; Status DC Divalproex Sodium (Depakote Sprinkles) 125 mg BID PO Last administered on 07:46; Start 07/13/16 at 21:00; Stop 07/19/16 at 11:49; Status DC Vitamin D (Vitamin D3) 2,000 unit BIDPCLD PO Last administered on 07/31/16 18: 16; Start 07/14/16 at 12:30 Trazodone HCl (Desyrel) 100 mg QHS PO Last administered on 07/31/16 20:15; Start 07/15/16 at 21:00 Trazodone HCl (Desyrel) 100 mg PRN QHS PO ; Start 07/15/16 at 13:45; Stop at 23:01; Status DC Trazodone HCl (Desyrel) 100 mg PRN QHS PRN PO INSOMNIA Last administered on 00:53; Start 07/15/16 at 23:00 Quetiapine Fumarate (SEROquel) 50 mg 1X ONCE PO Last administered on 07/16/16 00:44; Start 07/16/16 at 00:30; Stop 07/16/16 at 00:31; Status DC Temazepam (Restoril) 30 mg PRN QHS PRN PO INSOMNIA Last administered on 19:48; Start 07/16/16 at 18:30 Divalproex Sodium (Depakote Sprinkles) 250 mg BID PO Last administered on 12:20; Start 07/19/16 at 21:00; Stop 07/22/16 at 18:23; Status DC Acetaminophen (Tylenol) 650 mg PRN Q6HRS PRN PO PAIN / TEMP Last administered on 07/22/16 15:38; Start 07/22/16 at 15:30 Divalproex Sodium (Depakote Sprinkles) 375 mg BID PO Last administered on 20:15; Start 07/22/16 at 21:00 Melatonin 6 mg QHS PO Last administered on 07/31/16 20:14; Start 07/22/16 at 21:00 Risperidone (Risperdal) 0.25 mg QID PO Last administered on 07/31/16 20:14; Start 07/24/16 at 21:00 Lorazepam (Ativan) 1 mg DAILY IM ; Start 07/27/16 at 09:00; Stop 07/27/16 at 09: 00; Status DC Lorazepam (Ativan) 1 mg 14 IM Last administered on 07/28/16 13:47; Start 07/26 at 15:00; Stop 07/29/16 at 14:13; Status DC Haloperidol Lactate (Haldol) 5 mg 1X ONCE IM Last administered on 07/27/16 16 :15; Start 07/27/16 at 16:15; Stop 07/27/16 at 16:16; Status DC Haloperidol Lactate (Haldol) 5 mg 14 IM Last administered on 07/28/16 13:46; Start 07/28/16 at 14:00; Stop 07/29/16 at 14:13; Status DC Buspirone HCl (Buspar) 10 mg TID PO Last administered on 07/31/16 20:15; Start 07/27/16 at 21:00 Trazodone HCl (Desyrel) 12.5 mg TIDWMEALS PO Last administered on 07/31/16 18: 16; Start 07/28/16 at 08:00 Fosfomycin Tromethamine (Monurol) 3 gm 1X ONCE PO Last administered on 4/19/ 17at 06:27; Start 07/29/16 at 06:30; Stop 07/29/16 at 06:32; Status DC Active Scripts Active Lisinopril 20 Mg Tablet 1 Tab PO DAILY NICODERM CQ 21mg (Nicotine) 1 Each Patch.td24 1 Patch TP DAILY Lorazepam 0.5 Mg Tablet 1 Tab PO Q4HRS PRN Hydroxyzine Hcl 25 Mg Tablet 1 Tab PO Q6HRS PRN Benadryl (Diphenhydramine Hcl) 25 Mg Capsule 1 Cap PO Q6HRS Diagnosis: Problems: (1) Encounter for psychological evaluation (2) Anxiety disorder (3) Impulse control disorder (4) Dementia, vascular, with delusions (5) Dementia, vascular, with depression (6) Dementia in Alzheimer's disease with delusions (7) Dementia in Alzheimer's disease with depression CAITLYN BHATT MD Jul 31, 2016 20:47
--- NOTE | 2016-07-31 23:09 | NUR ---
Behavior Intervention Response and Plan: BIRP Note: Behavior: Assumed Care of patient, patient located in Hallway at shift change. Patient exhibited the following behavior Wandering, Restless, Irritable. Brief assessment on rounds of vital signs, medication needs, lab studies, and pain. Treatment plan problems Dementia W BD, Altered Mental Status, and Fall Risk. Intervention: Patient assessed and the following interventions initiated safety checks 15 Minute Checks Medications , Cognitive Assessment , ADL's. Response: After interactions and interventions patient responded in the following manner, Wandering , Restless ,Irritable. Continue to assess behaviors and condition will continue to monitor throughout the shift as needed. 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 Continue to assess patient for changes in above assessment. Monitor for medication needs, pain, and safety concerns. Hourly rounding performed to ensure safe environment.
[2016-08-01 06:21] VITALS: BP 129/74
[2016-08-01] MEDS: LISINOPRIL 20 MG TABLET PO SCH (08:40)
[2016-08-01] MEDS: CITALOPRAM 10 MG TABLET. PO SCH (08:40)
[2016-08-01] MEDS: busPIRone 10 MG TABLET. PO SCH ×3 (08:40→19:09)
[2016-08-01] MEDS: risperiDONE 0.25 MG TABLET. PO SCH ×4 (08:40→19:09)
[2016-08-01] MEDS: DOCUSATE CALCIUM 240 MG CAPSULE PO SCH (08:40)
[2016-08-01] MEDS: DIVALPROEX 125 MG CAP.SPRINK PO SCH ×2 (08:41→19:09)
[2016-08-01] MEDS: traZODone 50 MG TABLET. PO SCH ×3 (08:41→17:04)
[2016-08-01] MEDS: CHOLECALCIFEROL (VITAMIN D3) 1,000 UNIT TABLET PO SCH ×2 (08:42→17:04)
[2016-08-01] MEDS: fentaNYL 12MCG/HR 1 PATCH PATCH TD SCH (08:42)
[2016-08-01] MEDS: NICOTINE 21MG PATCH. TD SCH (08:43)
--- NOTE | 2016-08-01 08:52 | NUR ---
Patient appears anxious, pacing up and down the hallway looking for an "exit", not easily redirected. PRN zyprexa 2.5mg given for agitation/anxiety, will continue to monitor. Addendum: 08/01/16 at 1114 by RICHARD HERNANDEZ RN PRN effective- patient sitting in day room watching television, no signs of agitation.
--- NOTE | 2016-08-01 11:00 | NUR ---
THERAPEUTIC RECREATION GROUP NOTE TITLE :: Flower planting in painted tin cans ACTIVITY : Sensory Stimulation GOAL : Increase feeling of wellness, socialization, and facilitate memory DURATION : 30 minutes RESPONSE : Full participation. Pt. needed repeat directions and demonstration to plant her flower. She smiled occasionally and was pleasant to have in group.
--- NOTE | 2016-08-01 11:14 | NUR ---
Behavior Intervention Response and Plan: BIRP Note: Behavior: Assumed Care of patient, patient located in Hallway at shift change. Patient exhibited the following behavior Restless, Exit Seeking, Compliant. Brief assessment on rounds of vital signs, medication needs, lab studies, and pain. Treatment plan problems . Intervention: Patient assessed and the following interventions initiated safety checks 15 Minute Checks Cognitive Assessment , Head to toe Assessment , Medications. Response: After interactions and interventions patient responded in the following manner, Calm , Compliant ,Cooperative. Continue to assess behaviors and condition will continue to monitor throughout the shift as needed. 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 Continue to assess patient for changes in above assessment. Monitor for medication needs, pain, and safety concerns. Hourly rounding performed to ensure safe environment.
[2016-08-01 16:03] VITALS: BP 116/81
[2016-08-01] MEDS: traZODone 100 MG TABLET. PO SCH (19:09)
[2016-08-01] MEDS: MIRTAZAPINE 15 MG TABLET PO SCH (19:09)
[2016-08-01] MEDS: MELATONIN 3 MG TABLET PO SCH (19:09)
--- NOTE | 2016-08-01 21:00 | PDOC ---
Exam Yaya Demential Exam: Yaya Note: Please also refer to the separate dictated note~for this date of service dictated separately.~Patient seen individually. Discussed the patient with Nursing staff reviewed the chart.~Reviewed interim history and current functioning. Reviewed vital signs,~Labs/ Radiology~and current medications noted below. Continue current treatment with the changes noted in the dictated addendum note Assessment: Vital Signs: Vital Signs Date Time Temp Pulse Resp B/P Pulse Ox O2 Delivery O2 Flow Rate FiO2 08/01/16 16:03 97.9 74 16 116/81 93.0 08/01/16 13:40 96 08/01/16 06:21 Room Air I&O Intake and Output 08/01/16 07:00 Intake Total 720 ml Balance 720 ml Intake Oral 720 ml Current Medications: Meds: Current Medications Diphenhydramine HCl (Benadryl) 25 mg Q6HRS PO ; Start 07/01/16 at 18:00; Stop at 18:00; Status DC Hydroxyzine HCl (Atarax) 25 mg PRN Q6HRS PRN PO ITCHING Last administered on 01:19; Start 07/01/16 at 15:15; Stop 07/06/16 at 04:21; Status DC Lisinopril (Prinivil) 20 mg DAILY PO Last administered on 08/01/16 08:40; Start 07/02/16 at 09:00 Lorazepam (Ativan) 0.5 mg PRN Q4HRS PRN PO ANXIETY / AGITATION Last administered on 07/02/16 21:07; Start 07/01/16 at 15:15; Stop 07/02/16 at 21:44 ; Status DC Nicotine (Nicoderm Cq 21mg) 1 patch DAILY TD Last administered on 08/01/16 08: 43; Start 07/02/16 at 09:00 Lorazepam (Ativan) 0.5 mg PRN Q4HRS PRN IV ANXIETY / AGITATION; Start 07/01/16 at 15:15; Stop 07/01/16 at 19:14; Status DC Diphenhydramine HCl (Benadryl) 25 mg PRN Q6HRS PRN IVP ITCHING; Start 07/01/16 at 15:15; Stop 07/01/16 at 19:14; Status DC Haloperidol Lactate (Haldol) 5 mg PRN Q6HRS PRN IM AGITATION; Start 07/01/16 at 15:15; Stop 07/01/16 at 19:14; Status DC Diphenhydramine HCl (Benadryl) 25 mg PRN Q6HRS PRN PO ITCHING Last administered on 07/01/16 20:56; Start 07/01/16 at 18:00 Acetaminophen/ Hydrocodone Bitart (Lortab 5/325) 1 tab PRN BID PRN PO PAIN Last administered on 07/19/16 20:05; Start 07/02/16 at 21:45 Olanzapine (Zyprexa Zydis) 2.5 mg PRN Q2HR PRN PO PSYCHOSIS Last administered on 08/01/16 08:46; Start 07/02/16 at 21:45 Mirtazapine (Remeron) 15 mg QHS PO Last administered on 08/01/16 19:09; Start 07/03/16 at 21:00 Citalopram Hydrobromide (Celexa) 10 mg DAILY PO Last administered on 08/01/16 08:40; Start 07/03/16 at 09:00 Risperidone (Risperdal) 0.25 mg BID PO Last administered on 07/10/16 08:54; Start 07/03/16 at 21:00; Stop 07/10/16 at 15:18; Status DC Docusate Calcium (Surfak) 240 mg DAILY PO Last administered on 08/01/16 08:40 ; Start 07/04/16 at 21:00 Magnesium Hydroxide (Milk Of Magnesia) 2,400 mg PRN QHS PRN PO CONSTIPATION; Start 07/04/16 at 18:15 Trazodone HCl (Desyrel) 50 mg QHS PO Last administered on 07/14/16 20:10; Start 07/05/16 at 21:00; Stop 07/15/16 at 13:52; Status DC Trazodone HCl (Desyrel) 50 mg PRN QHS PRN PO INSOMNIA Last administered on 21:27; Start 07/05/16 at 20:45; Stop 07/15/16 at 13:52; Status DC Hydroxyzine HCl (Atarax) 50 mg PRN Q2HR PRN PO Psychosis Last administered on 09:16; Start 07/06/16 at 04:30 Fentanyl (Duragesic 12mcg/ Hr) 1 patch Q3DAYS TD Last administered on 08:42; Start 07/08/16 at 18:30 Risperidone (Risperdal) 0.25 mg TID PO Last administered on 07/24/16 13:20; Start 07/10/16 at 21:00; Stop 07/24/16 at 18:29; Status DC Buspirone HCl (Buspar) 5 mg TID PO Last administered on 07/13/16 12:28; Start 07/10/16 at 21:00; Stop 07/13/16 at 15:32; Status DC Buspirone HCl (Buspar) 10 mg BID PO Last administered on 07/27/16 09:32; Start 07/13/16 at 21:00; Stop 07/27/16 at 18:29; Status DC Divalproex Sodium (Depakote Sprinkles) 125 mg BID PO Last administered on 07:46; Start 07/13/16 at 21:00; Stop 07/19/16 at 11:49; Status DC Vitamin D (Vitamin D3) 2,000 unit BIDPCLD PO Last administered on 08/01/16 17: 04; Start 07/14/16 at 12:30 Trazodone HCl (Desyrel) 100 mg QHS PO Last administered on 08/01/16 19:09; Start 07/15/16 at 21:00 Trazodone HCl (Desyrel) 100 mg PRN QHS PO ; Start 07/15/16 at 13:45; Stop at 23:01; Status DC Trazodone HCl (Desyrel) 100 mg PRN QHS PRN PO INSOMNIA Last administered on 00:53; Start 07/15/16 at 23:00 Quetiapine Fumarate (SEROquel) 50 mg 1X ONCE PO Last administered on 07/16/16 00:44; Start 07/16/16 at 00:30; Stop 07/16/16 at 00:31; Status DC Temazepam (Restoril) 30 mg PRN QHS PRN PO INSOMNIA Last administered on 19:48; Start 07/16/16 at 18:30 Divalproex Sodium (Depakote Sprinkles) 250 mg BID PO Last administered on 12:20; Start 07/19/16 at 21:00; Stop 07/22/16 at 18:23; Status DC Acetaminophen (Tylenol) 650 mg PRN Q6HRS PRN PO PAIN / TEMP Last administered on 07/22/16 15:38; Start 07/22/16 at 15:30 Divalproex Sodium (Depakote Sprinkles) 375 mg BID PO Last administered on 19:09; Start 07/22/16 at 21:00 Melatonin 6 mg QHS PO Last administered on 08/01/16 19:09; Start 07/22/16 at 21:00 Risperidone (Risperdal) 0.25 mg QID PO Last administered on 08/01/16 19:09; Start 07/24/16 at 21:00 Lorazepam (Ativan) 1 mg DAILY IM ; Start 07/27/16 at 09:00; Stop 07/27/16 at 09: 00; Status DC Lorazepam (Ativan) 1 mg 14 IM Last administered on 07/28/16 13:47; Start 07/26 at 15:00; Stop 07/29/16 at 14:13; Status DC Haloperidol Lactate (Haldol) 5 mg 1X ONCE IM Last administered on 07/27/16 16 :15; Start 07/27/16 at 16:15; Stop 07/27/16 at 16:16; Status DC Haloperidol Lactate (Haldol) 5 mg 14 IM Last administered on 07/28/16 13:46; Start 07/28/16 at 14:00; Stop 07/29/16 at 14:13; Status DC Buspirone HCl (Buspar) 10 mg TID PO Last administered on 08/01/16 19:09; Start 07/27/16 at 21:00 Trazodone HCl (Desyrel) 12.5 mg TIDWMEALS PO Last administered on 08/01/16 17: 04; Start 07/28/16 at 08:00 Fosfomycin Tromethamine (Monurol) 3 gm 1X ONCE PO Last administered on t 06:27; Start 07/29/16 at 06:30; Stop 07/29/16 at 06:32; Status DC Active Scripts Active Lisinopril 20 Mg Tablet 1 Tab PO DAILY NICODERM CQ 21mg (Nicotine) 1 Each Patch.td24 1 Patch TP DAILY Lorazepam 0.5 Mg Tablet 1 Tab PO Q4HRS PRN Hydroxyzine Hcl 25 Mg Tablet 1 Tab PO Q6HRS PRN Benadryl (Diphenhydramine Hcl) 25 Mg Capsule 1 Cap PO Q6HRS Diagnosis: Problems: (1) Encounter for psychological evaluation (2) Anxiety disorder (3) Impulse control disorder (4) Dementia, vascular, with delusions (5) Dementia, vascular, with depression (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
[2016-08-02] MEDS: TEMAZEPAM 15 MG CAPSULE PO PRN ×2 (00:06→19:33)
--- NOTE | 2016-08-02 00:06 | NUR ---
Nursing Note Patient awake and wandering halls yelling for "Rich". Patient is non redirectable and continues to yell and hit and kick bruce and windows of nursing station. Patient is agitated and aggressive with staff. Patient given PRN Restoril and Zyprexa per PRN order.
--- NOTE | 2016-08-02 00:55 | NUR ---
Behavior Intervention Response and Plan: BIRP Note: Behavior: Assumed Care of patient, patient located in Day Room at shift change. Patient exhibited the following behavior Calm, Compliant, Cooperative. Brief assessment on rounds of vital signs, medication needs, lab studies, and pain. Treatment plan problems Dementia W BD, Altered Mental Status, and Fall Risk. Intervention: Patient assessed and the following interventions initiated safety checks 15 Minute Checks Cognitive Assessment , Medications , Oral Hydration. Response: After interactions and interventions patient responded in the following manner, Wandering , Exit Seeking ,Agitated. Continue to assess behaviors and condition will continue to monitor throughout the shift as needed. 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 Continue to assess patient for changes in above assessment. Monitor for medication needs, pain, and safety concerns. Hourly rounding performed to ensure safe environment.
[2016-08-02 06:51] VITALS: BP 126/70
--- NOTE | 2016-08-02 08:32 | PN ---
DATE: 08/01/2016 This late entry for 08/01/2016 covers elements not covered in my initial note of 08/01/2016. SUBJECTIVE: Per nursing report, the patient was agitated, pacing in the morning, exit seeking, received Zyprexa p.r.n. then did much better. She had 2 visitors and even after they left, she was much better than she has been in the past. At times, she gets a little labile in her mood. She is pleasant, smiling, animated, but disorganized as I met with her. REVIEW OF SYSTEMS: No CV, , eye, ENT, pulmonary system symptoms on review. Reliability poor. MENTAL STATUS EXAM: The patient is oriented to herself. Insight, judgment, recent and remote memory, attention, concentration, fund of knowledge poor, consistent with her diagnosis mentioned in my initial note. PLAN: Continue current psychotropics. Adjust further as clinically indicated. CAITLYN BHATT MD DR: ALICIA/shanon JOB#: [id number] / [id number]
--- NOTE | 2016-08-02 08:32 | PN ---
DATE: 07/31/2016 PSYCHIATRIC PROGRESS NOTE This is a late entry of 07/31/2016 and covers elements not covered in my initial note. SUBJECTIVE: Per nursing report, the patient has been more cooperative. She is taking her medications whole with Floyd-Aid. She has been checking the doors exit seeking certainly confused. Chest x-ray shows pleural effusion, bibasilar atelectasis and I will defer the medical management to Dr. Hauser. REVIEW OF SYSTEMS: No CV, , eye, ENT or pulmonary system symptoms on review. Reliability poor. MENTAL STATUS EXAM: Oriented to herself. Insight, judgment, recent and remote memory, attention, concentration, fund of knowledge poor, consistent with her diagnosis mentioned in my initial note. PLAN: Continue psychotropics mentioned in my initial note. Overall, the patient is doing significantly better than she was a few days previously. We will continue to adjust psychotropics as clinically indicated. CAITLYN BHATT MD DR: ALICIA/shanon JOB#: [id number] / [id number]
[2016-08-02] MEDS: NICOTINE 21MG PATCH. TD SCH (09:37)
[2016-08-02] MEDS: busPIRone 10 MG TABLET. PO SCH ×3 (09:37→19:35)
[2016-08-02] MEDS: risperiDONE 0.25 MG TABLET. PO SCH ×4 (09:38→19:35)
[2016-08-02] MEDS: CITALOPRAM 10 MG TABLET. PO SCH (09:38)
[2016-08-02] MEDS: DIVALPROEX 125 MG CAP.SPRINK PO SCH ×2 (09:38→19:34)
[2016-08-02] MEDS: DOCUSATE CALCIUM 240 MG CAPSULE PO SCH (09:38)
[2016-08-02] MEDS: traZODone 50 MG TABLET. PO SCH ×3 (09:38→16:46)
[2016-08-02] MEDS: LISINOPRIL 20 MG TABLET PO SCH (09:39)
--- NOTE | 2016-08-02 09:45 | NUR ---
Behavior Intervention Response and Plan: BIRP Note: Behavior: Assumed Care of patient, patient located in Day Room at shift change. Patient exhibited the following behavior Wandering, Exit Seeking, Disorganized. Brief assessment on rounds of vital signs, medication needs, lab studies, and pain. Treatment plan problems 1 & 2. Intervention: Patient assessed and the following interventions initiated safety checks 15 Minute Checks Cognitive Assessment , Head to toe Assessment , Medications. Response: After interactions and interventions patient responded in the following manner, Calm , Compliant ,Cooperative. Continue to assess behaviors and condition will continue to monitor throughout the shift as needed. Plan: Continue to monitor Master Treatment Plan for patient's progress toward short term goals of Decreased Agitation, Decreased Aggression, [facility] goals to return to previous living setting vs placement. Continue to assess patient for changes in above assessment. Monitor for medication needs, pain, and safety concerns. Hourly rounding performed to ensure safe environment.
[2016-08-02] MEDS: traZODone 100 MG TABLET. PO SCH ×2 (13:03→19:35)
[2016-08-02] MEDS: CHOLECALCIFEROL (VITAMIN D3) 1,000 UNIT TABLET PO SCH ×2 (13:04→16:47)
[2016-08-02 16:56] VITALS: BP 156/84
[2016-08-02] MEDS: hydrOXYzine HCL 25 MG TABLET PO PRN ×2 (18:08→19:22)
--- NOTE | 2016-08-02 18:19 | NUR ---
Patient is extremely agitated and upsetting other patients. She is screaming profanities in Turkish and German, and banging on the bruce with her head and fists. PRN meds provided as per eMAR, will monitor for effectiveness and continued behaviours.
[2016-08-02] MEDS: HYDROcodone/APAP 5/325MG 1 TAB TABLET PO PRN (19:34)
[2016-08-02] MEDS: MIRTAZAPINE 15 MG TABLET PO SCH (19:35)
[2016-08-02] MEDS: MELATONIN 3 MG TABLET PO SCH (19:35)
--- NOTE | 2016-08-02 20:49 | PDOC ---
Exam Yaya Demential Exam: Yaya Note: Please also refer to the separate dictated note~for this date of service dictated separately.~Patient seen individually. Discussed the patient with Nursing staff reviewed the chart.~Reviewed interim history and current functioning. Reviewed vital signs,~Labs/ Radiology~and current medications noted below. Continue current treatment with the changes noted in the dictated addendum note Assessment: Vital Signs: Vital Signs Date Time Temp Pulse Resp B/P Pulse Ox O2 Delivery O2 Flow Rate FiO2 08/02/16 19:34 20 08/02/16 16:56 97.8 87 156/84 97 08/01/16 16:03 93.0 08/01/16 06:21 Room Air I&O Intake and Output 08/02/16 07:00 Intake Total 1320 ml Balance 1320 ml Intake Oral 1320 ml # Bowel Movements 1 Current Medications: Meds: Current Medications Diphenhydramine HCl (Benadryl) 25 mg Q6HRS PO ; Start 07/01/16 at 18:00; Stop at 18:00; Status DC Hydroxyzine HCl (Atarax) 25 mg PRN Q6HRS PRN PO ITCHING Last administered on 01:19; Start 07/01/16 at 15:15; Stop 07/06/16 at 04:21; Status DC Lisinopril (Prinivil) 20 mg DAILY PO Last administered on 08/02/16 09:39; Start 07/02/16 at 09:00 Lorazepam (Ativan) 0.5 mg PRN Q4HRS PRN PO ANXIETY / AGITATION Last administered on 07/02/16 21:07; Start 07/01/16 at 15:15; Stop 07/02/16 at 21:44 ; Status DC Nicotine (Nicoderm Cq 21mg) 1 patch DAILY TD Last administered on 08/02/16 09: 37; Start 07/02/16 at 09:00 Lorazepam (Ativan) 0.5 mg PRN Q4HRS PRN IV ANXIETY / AGITATION; Start 07/01/16 at 15:15; Stop 07/01/16 at 19:14; Status DC Diphenhydramine HCl (Benadryl) 25 mg PRN Q6HRS PRN IVP ITCHING; Start 07/01/16 at 15:15; Stop 07/01/16 at 19:14; Status DC Haloperidol Lactate (Haldol) 5 mg PRN Q6HRS PRN IM AGITATION; Start 07/01/16 at 15:15; Stop 07/01/16 at 19:14; Status DC Diphenhydramine HCl (Benadryl) 25 mg PRN Q6HRS PRN PO ITCHING Last administered on 07/01/16 20:56; Start 07/01/16 at 18:00 Acetaminophen/ Hydrocodone Bitart (Lortab 5/325) 1 tab PRN BID PRN PO PAIN Last administered on 08/02/16 19:34; Start 07/02/16 at 21:45 Olanzapine (Zyprexa Zydis) 2.5 mg PRN Q2HR PRN PO PSYCHOSIS Last administered on 08/02/16 19:22; Start 07/02/16 at 21:45 Mirtazapine (Remeron) 15 mg QHS PO Last administered on 08/02/16 19:35; Start 07/03/16 at 21:00 Citalopram Hydrobromide (Celexa) 10 mg DAILY PO Last administered on 08/02/16 09:38; Start 07/03/16 at 09:00 Risperidone (Risperdal) 0.25 mg BID PO Last administered on 07/10/16 08:54; Start 07/03/16 at 21:00; Stop 07/10/16 at 15:18; Status DC Docusate Calcium (Surfak) 240 mg DAILY PO Last administered on 08/02/16 09:38 ; Start 07/04/16 at 21:00 Magnesium Hydroxide (Milk Of Magnesia) 2,400 mg PRN QHS PRN PO CONSTIPATION; Start 07/04/16 at 18:15 Trazodone HCl (Desyrel) 50 mg QHS PO Last administered on 07/14/16 20:10; Start 07/05/16 at 21:00; Stop 07/15/16 at 13:52; Status DC Trazodone HCl (Desyrel) 50 mg PRN QHS PRN PO INSOMNIA Last administered on 21:27; Start 07/05/16 at 20:45; Stop 07/15/16 at 13:52; Status DC Hydroxyzine HCl (Atarax) 50 mg PRN Q2HR PRN PO Psychosis Last administered on 19:22; Start 07/06/16 at 04:30 Fentanyl (Duragesic 12mcg/ Hr) 1 patch Q3DAYS TD Last administered on 08:42; Start 07/08/16 at 18:30 Risperidone (Risperdal) 0.25 mg TID PO Last administered on 07/24/16 13:20; Start 07/10/16 at 21:00; Stop 07/24/16 at 18:29; Status DC Buspirone HCl (Buspar) 5 mg TID PO Last administered on 07/13/16 12:28; Start 07/10/16 at 21:00; Stop 07/13/16 at 15:32; Status DC Buspirone HCl (Buspar) 10 mg BID PO Last administered on 07/27/16 09:32; Start 07/13/16 at 21:00; Stop 07/27/16 at 18:29; Status DC Divalproex Sodium (Depakote Sprinkles) 125 mg BID PO Last administered on 07:46; Start 07/13/16 at 21:00; Stop 07/19/16 at 11:49; Status DC Vitamin D (Vitamin D3) 2,000 unit BIDPCLD PO Last administered on 08/02/16 16: 47; Start 07/14/16 at 12:30 Trazodone HCl (Desyrel) 100 mg QHS PO Last administered on 08/02/16 19:35; Start 07/15/16 at 21:00 Trazodone HCl (Desyrel) 100 mg PRN QHS PO ; Start 07/15/16 at 13:45; Stop at 23:01; Status DC Trazodone HCl (Desyrel) 100 mg PRN QHS PRN PO INSOMNIA Last administered on 00:53; Start 07/15/16 at 23:00 Quetiapine Fumarate (SEROquel) 50 mg 1X ONCE PO Last administered on 07/16/16 00:44; Start 07/16/16 at 00:30; Stop 07/16/16 at 00:31; Status DC Temazepam (Restoril) 30 mg PRN QHS PRN PO INSOMNIA Last administered on 19:33; Start 07/16/16 at 18:30 Divalproex Sodium (Depakote Sprinkles) 250 mg BID PO Last administered on 12:20; Start 07/19/16 at 21:00; Stop 07/22/16 at 18:23; Status DC Acetaminophen (Tylenol) 650 mg PRN Q6HRS PRN PO PAIN / TEMP Last administered on 07/22/16 15:38; Start 07/22/16 at 15:30 Divalproex Sodium (Depakote Sprinkles) 375 mg BID PO Last administered on 19:34; Start 07/22/16 at 21:00 Melatonin 6 mg QHS PO Last administered on 08/02/16 19:35; Start 07/22/16 at 21:00 Risperidone (Risperdal) 0.25 mg QID PO Last administered on 08/02/16 19:35; Start 07/24/16 at 21:00 Lorazepam (Ativan) 1 mg DAILY IM ; Start 07/27/16 at 09:00; Stop 07/27/16 at 09: 00; Status DC Lorazepam (Ativan) 1 mg 14 IM Last administered on 07/28/16 13:47; Start 07/26 at 15:00; Stop 07/29/16 at 14:13; Status DC Haloperidol Lactate (Haldol) 5 mg 1X ONCE IM Last administered on 07/27/16 16 :15; Start 07/27/16 at 16:15; Stop 07/27/16 at 16:16; Status DC Haloperidol Lactate (Haldol) 5 mg 14 IM Last administered on 07/28/16 13:46; Start 07/28/16 at 14:00; Stop 07/29/16 at 14:13; Status DC Buspirone HCl (Buspar) 10 mg TID PO Last administered on 08/02/16 19:35; Start 07/27/16 at 21:00 Trazodone HCl (Desyrel) 12.5 mg TIDWMEALS PO Last administered on 08/02/16 16: 46; Start 07/28/16 at 08:00 Fosfomycin Tromethamine (Monurol) 3 gm 1X ONCE PO Last administered on t 06:27; Start 07/29/16 at 06:30; Stop 07/29/16 at 06:32; Status DC Active Scripts Active Lisinopril 20 Mg Tablet 1 Tab PO DAILY NICODERM CQ 21mg (Nicotine) 1 Each Patch.td24 1 Patch TP DAILY Lorazepam 0.5 Mg Tablet 1 Tab PO Q4HRS PRN Hydroxyzine Hcl 25 Mg Tablet 1 Tab PO Q6HRS PRN Benadryl (Diphenhydramine Hcl) 25 Mg Capsule 1 Cap PO Q6HRS Diagnosis: Problems: (1) Encounter for psychological evaluation (2) Anxiety disorder (3) Impulse control disorder (4) Dementia, vascular, with delusions (5) Dementia in Alzheimer's disease with depression (6) Dementia, vascular, with depression (7) Dementia in Alzheimer's disease with delusions CAITLYN BHATT MD Aug 02, 2016 20:49
--- NOTE | 2016-08-02 23:46 | NUR ---
Behavior Intervention Response and Plan: BIRP Note: Behavior: Assumed Care of patient, patient located in Hallway at shift change. Patient exhibited the following behavior Combative, Agitated, Delusions. Brief assessment on rounds of vital signs, medication needs, lab studies, and pain. Treatment plan problems 1-2. Intervention: Patient assessed and the following interventions initiated safety checks 15 Minute Checks Cognitive Assessment , Head to toe Assessment , Medications. Response: After interactions and interventions patient responded in the following manner, Delusions , Disorganized ,Agitated. Continue to assess behaviors and condition will continue to monitor throughout the shift as needed. Plan: Continue to monitor Master Treatment Plan for patient's progress toward short term goals of Decreased Anxiety, Improved Mood, [facility] goals to return to previous living setting vs placement. Continue to assess patient for changes in above assessment. Monitor for medication needs, pain, and safety concerns. Hourly rounding performed to ensure safe environment.
[2016-08-03 06:44] VITALS: BP 166/82
[2016-08-03] MEDS: DIVALPROEX 125 MG CAP.SPRINK PO SCH ×2 (09:45→19:14)
[2016-08-03] MEDS: traZODone 50 MG TABLET. PO SCH ×3 (09:45→16:42)
[2016-08-03] MEDS: CITALOPRAM 10 MG TABLET. PO SCH (09:45)
[2016-08-03] MEDS: DOCUSATE CALCIUM 240 MG CAPSULE PO SCH (09:45)
[2016-08-03] MEDS: busPIRone 10 MG TABLET. PO SCH ×3 (09:45→19:15)
[2016-08-03] MEDS: LISINOPRIL 20 MG TABLET PO SCH (09:46)
[2016-08-03] MEDS: NICOTINE 21MG PATCH. TD SCH (09:46)
[2016-08-03] MEDS: risperiDONE 0.25 MG TABLET. PO SCH ×4 (09:46→19:15)
[2016-08-03] MEDS: CHOLECALCIFEROL (VITAMIN D3) 1,000 UNIT TABLET PO SCH ×2 (09:47→16:42)
[2016-08-03 10:05] LABS: BASO # 0.1 x10^3/uL (0.0-0.2); BASO % 1 % (0-3); EOS # 0.3 x10^3/uL (0.0-0.7); EOS % 2 % (0-3); HEMATOCRIT 37.6 % (36.0-47.0); HEMOGLOBIN 11.9 g/dL (12.0-15.5); LYMPH # 2.8 x10^3/uL (1.0-4.8); LYMPH % 22 % (24-48); MEAN CORPUSCULAR HEMOGLOBIN 29 pg (25-35); MEAN CORPUSCULAR HGB CONC 32 g/dL (31-37); MEAN CORPUSCULAR VOLUME 92 fL (79-100); MONO # 1.3 x10^3/uL (0.0-1.1); MONO % 10 % (0-9); NEUT # 8.4 x10^3uL (1.8-7.7); NEUT % 65 % (31-73); PLATELET COUNT 483 x10^3/uL (140-400); RED CELL DISTRIBUTION WIDTH 14.8 % (11.5-14.5)
[2016-08-03 10:19] LABS: ALBUMIN/GLOBULIN RATIO 0.7 (1.0-1.7); CALCIUM 9.2 mg/dL (8.5-10.1); CREATININE 0.8 mg/dL (0.6-1.0); GFR 70.7; TOTAL BILIRUBIN 0.2 mg/dL (0.2-1.0); TOTAL PROTEIN 7.5 g/dL (6.4-8.2)
--- NOTE | 2016-08-03 12:41 | PN ---
DATE: 08/02/2016 PSYCHIATRIC PROGRESS NOTE This is late entry of date of service 08/02/2016, covers elements not covered in my initial note of 08/02/2016. SUBJECTIVE: Per nursing report, the patient had a very difficult day on 08/02/2016. She has been agitated, loud, disruptive, had to be placed in a separate hallway, banging on the doors, paranoid, verbally and physically abusive to staff members non-redirectable, quite psychotic. REVIEW OF SYSTEMS: No CV, , eye, ENT or pulmonary system symptoms on review. Reliability poor. MENTAL STATUS EXAMINATION: Oriented to herself. Insight, judgment, recent and remote memory, attention, concentration, fund of knowledge poor, consistent with her diagnosis. She is rapid in her speech, verbally abusive to me as well during our visit. LABORATORY DATA: Reviewed. IMPRESSION: Unchanged. PLAN: Continue current psychotropics. I have advised the nursing staff to administer the bedtime meds early including the Restoril and trazodone and we will increase the scheduled daytime trazodone from 12.5 mg t.i.d. to 25 mg t.i.d. Adjust further as clinically indicated. CAITLYN BHATT MD DR: ALICIA/shanon JOB#: [id number] / [id number]
--- NOTE | 2016-08-03 14:21 | NUR ---
Behavior Intervention Response and Plan: BIRP Note: Behavior: Assumed Care of patient, patient located in Hallway at shift change. Patient exhibited the following behavior Exit Seeking, Demanding, Non Compliant. Brief assessment on rounds of vital signs, medication needs, lab studies, and pain. Treatment plan problems . Intervention: Patient assessed and the following interventions initiated safety checks 15 Minute Checks Cognitive Assessment , Head to toe Assessment , Medications. Response: After interactions and interventions patient responded in the following manner, Calm , Compliant ,Cooperative. Continue to assess behaviors and condition will continue to monitor throughout the shift as needed. 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 Continue to assess patient for changes in above assessment. Monitor for medication needs, pain, and safety concerns. Hourly rounding performed to ensure safe environment.
[2016-08-03 16:03] VITALS: BP 149/92
[2016-08-03] MEDS: MELATONIN 3 MG TABLET PO SCH (19:14)
[2016-08-03] MEDS: traZODone 100 MG TABLET. PO SCH (19:15)
[2016-08-03] MEDS: MIRTAZAPINE 15 MG TABLET PO SCH (19:16)
[2016-08-03] MEDS: TEMAZEPAM 15 MG CAPSULE PO PRN (19:18)
--- NOTE | 2016-08-03 19:30 | NUR ---
Nursing Note: Pt agitated. Yelling in the day room; arguing with other residents. Pt placed in [place] to try to calm. Pt yelling, shaking doors, hitting nursing station windows. Pt unable to redirect. PRN given with HS medications.Will continue to monitor.
--- NOTE | 2016-08-03 23:36 | PDOC ---
Exam Yaya Demential Exam: Yaya Note: Please also refer to the separate dictated note~for this date of service dictated separately.~Patient seen individually. Discussed the patient with Nursing staff reviewed the chart.~Reviewed interim history and current functioning. Reviewed vital signs,~Labs/ Radiology~and current medications noted below. Continue current treatment with the changes noted in the dictated addendum note Assessment: Vital Signs: Vital Signs Date Time Temp Pulse Resp B/P Pulse Ox O2 Delivery O2 Flow Rate FiO2 08/03/16 16:03 97.0 79 149/92 98 08/03/16 06:44 16 08/01/16 16:03 93.0 08/01/16 06:21 Room Air I&O Intake and Output 08/03/16 07:00 Intake Total 960 ml Balance 960 ml Intake Oral 960 ml # Bowel Movements 1 Labs: Laboratory Tests Test 08/03/16 09:50 White Blood Count 13.0x10^3/uL (4.0-11.0) H Red Blood Count 4.10x10^6/uL (3.50-5.40) Hemoglobin 11.9g/dL (12.0-15.5) L Hematocrit 37.6% (36.0-47.0) Mean Corpuscular Volume 92fL (79-100) Mean Corpuscular Hemoglobin 29pg (25-35) Mean Corpuscular Hemoglobin Concent 32g/dL (31-37) Red Cell Distribution Width 14.8% (11.5-14.5) H Platelet Count 483x10^3/uL (140-400) H Neutrophils (%) (Auto) 65% (31-73) Lymphocytes (%) (Auto) 22% (24-48) L Monocytes (%) (Auto) 10% (0-9) H Eosinophils (%) (Auto) 2% (0-3) Basophils (%) (Auto) 1% (0-3) Neutrophils # (Auto) 8.4x10^3uL (1.8-7.7) H Lymphocytes # (Auto) 2.8x10^3/uL (1.0-4.8) Monocytes # (Auto) 1.3x10^3/uL (0.0-1.1) H Eosinophils # (Auto) 0.3x10^3/uL (0.0-0.7) Basophils # (Auto) 0.1x10^3/uL (0.0-0.2) Sodium Level 147mmol/L (136-145) H Potassium Level 4.0mmol/L (3.5-5.1) Chloride Level 109mmol/L (98-107) H Carbon Dioxide Level 28mmol/L (21-32) Anion Gap 10 (6-14) Blood Urea Nitrogen 18mg/dL (7-20) Creatinine 0.8mg/dL (0.6-1.0) Estimated GFR (Cockcroft-Gault) 70.7 BUN/Creatinine Ratio 23 (6-20) H Glucose Level 77mg/dL (70-99) Calcium Level 9.2mg/dL (8.5-10.1) Total Bilirubin 0.2mg/dL (0.2-1.0) Aspartate Amino Transferase (AST) 15U/L (15-37) Alanine Aminotransferase (ALT) 21U/L (14-59) Alkaline Phosphatase 97U/L (46-116) Total Protein 7.5g/dL (6.4-8.2) Albumin 3.0g/dL (3.4-5.0) L Albumin/Globulin Ratio 0.7 (1.0-1.7) L Current Medications: Meds: Current Medications Diphenhydramine HCl (Benadryl) 25 mg Q6HRS PO ; Start 07/01/16 at 18:00; Stop at 18:00; Status DC Hydroxyzine HCl (Atarax) 25 mg PRN Q6HRS PRN PO ITCHING Last administered on 01:19; Start 07/01/16 at 15:15; Stop 07/06/16 at 04:21; Status DC Lisinopril (Prinivil) 20 mg DAILY PO Last administered on 08/03/16 09:46; Start 07/02/16 at 09:00 Lorazepam (Ativan) 0.5 mg PRN Q4HRS PRN PO ANXIETY / AGITATION Last administered on 07/02/16 21:07; Start 07/01/16 at 15:15; Stop 07/02/16 at 21:44 ; Status DC Nicotine (Nicoderm Cq 21mg) 1 patch DAILY TD Last administered on 08/03/16 09: 46; Start 07/02/16 at 09:00 Lorazepam (Ativan) 0.5 mg PRN Q4HRS PRN IV ANXIETY / AGITATION; Start 07/01/16 at 15:15; Stop 07/01/16 at 19:14; Status DC Diphenhydramine HCl (Benadryl) 25 mg PRN Q6HRS PRN IVP ITCHING; Start 07/01/16 at 15:15; Stop 07/01/16 at 19:14; Status DC Haloperidol Lactate (Haldol) 5 mg PRN Q6HRS PRN IM AGITATION; Start 07/01/16 at 15:15; Stop 07/01/16 at 19:14; Status DC Diphenhydramine HCl (Benadryl) 25 mg PRN Q6HRS PRN PO ITCHING Last administered on 07/01/16 20:56; Start 07/01/16 at 18:00 Acetaminophen/ Hydrocodone Bitart (Lortab 5/325) 1 tab PRN BID PRN PO PAIN Last administered on 08/02/16 19:34; Start 07/02/16 at 21:45 Olanzapine (Zyprexa Zydis) 2.5 mg PRN Q2HR PRN PO PSYCHOSIS Last administered on 08/02/16 19:22; Start 07/02/16 at 21:45 Mirtazapine (Remeron) 15 mg QHS PO Last administered on 08/03/16 19:16; Start 07/03/16 at 21:00 Citalopram Hydrobromide (Celexa) 10 mg DAILY PO Last administered on 08/03/16 09:45; Start 07/03/16 at 09:00 Risperidone (Risperdal) 0.25 mg BID PO Last administered on 07/10/16 08:54; Start 07/03/16 at 21:00; Stop 07/10/16 at 15:18; Status DC Docusate Calcium (Surfak) 240 mg DAILY PO Last administered on 08/03/16 09:45 ; Start 07/04/16 at 21:00 Magnesium Hydroxide (Milk Of Magnesia) 2,400 mg PRN QHS PRN PO CONSTIPATION; Start 07/04/16 at 18:15 Trazodone HCl (Desyrel) 50 mg QHS PO Last administered on 07/14/16 20:10; Start 07/05/16 at 21:00; Stop 07/15/16 at 13:52; Status DC Trazodone HCl (Desyrel) 50 mg PRN QHS PRN PO INSOMNIA Last administered on 21:27; Start 07/05/16 at 20:45; Stop 07/15/16 at 13:52; Status DC Hydroxyzine HCl (Atarax) 50 mg PRN Q2HR PRN PO Psychosis Last administered on 19:22; Start 07/06/16 at 04:30 Fentanyl (Duragesic 12mcg/ Hr) 1 patch Q3DAYS TD Last administered on 08:42; Start 07/08/16 at 18:30 Risperidone (Risperdal) 0.25 mg TID PO Last administered on 07/24/16 13:20; Start 07/10/16 at 21:00; Stop 07/24/16 at 18:29; Status DC Buspirone HCl (Buspar) 5 mg TID PO Last administered on 07/13/16 12:28; Start 07/10/16 at 21:00; Stop 07/13/16 at 15:32; Status DC Buspirone HCl (Buspar) 10 mg BID PO Last administered on 07/27/16 09:32; Start 07/13/16 at 21:00; Stop 07/27/16 at 18:29; Status DC Divalproex Sodium (Depakote Sprinkles) 125 mg BID PO Last administered on 07:46; Start 07/13/16 at 21:00; Stop 07/19/16 at 11:49; Status DC Vitamin D (Vitamin D3) 2,000 unit BIDPCLD PO Last administered on 08/03/16 16: 42; Start 07/14/16 at 12:30 Trazodone HCl (Desyrel) 100 mg QHS PO Last administered on 08/03/16 19:15; Start 07/15/16 at 21:00 Trazodone HCl (Desyrel) 100 mg PRN QHS PO ; Start 07/15/16 at 13:45; Stop at 23:01; Status DC Trazodone HCl (Desyrel) 100 mg PRN QHS PRN PO INSOMNIA Last administered on 00:53; Start 07/15/16 at 23:00 Quetiapine Fumarate (SEROquel) 50 mg 1X ONCE PO Last administered on 07/16/16 00:44; Start 07/16/16 at 00:30; Stop 07/16/16 at 00:31; Status DC Temazepam (Restoril) 30 mg PRN QHS PRN PO INSOMNIA Last administered on 19:18; Start 07/16/16 at 18:30 Divalproex Sodium (Depakote Sprinkles) 250 mg BID PO Last administered on 12:20; Start 07/19/16 at 21:00; Stop 07/22/16 at 18:23; Status DC Acetaminophen (Tylenol) 650 mg PRN Q6HRS PRN PO PAIN / TEMP Last administered on 07/22/16 15:38; Start 07/22/16 at 15:30 Divalproex Sodium (Depakote Sprinkles) 375 mg BID PO Last administered on 19:14; Start 07/22/16 at 21:00 Melatonin 6 mg QHS PO Last administered on 08/03/16 19:14; Start 07/22/16 at 21:00 Risperidone (Risperdal) 0.25 mg QID PO Last administered on 08/03/16 19:15; Start 07/24/16 at 21:00 Lorazepam (Ativan) 1 mg DAILY IM ; Start 07/27/16 at 09:00; Stop 07/27/16 at 09: 00; Status DC Lorazepam (Ativan) 1 mg 14 IM Last administered on 07/28/16 13:47; Start 07/26 at 15:00; Stop 07/29/16 at 14:13; Status DC Haloperidol Lactate (Haldol) 5 mg 1X ONCE IM Last administered on 07/27/16 16 :15; Start 07/27/16 at 16:15; Stop 07/27/16 at 16:16; Status DC Haloperidol Lactate (Haldol) 5 mg 14 IM Last administered on 07/28/16 13:46; Start 07/28/16 at 14:00; Stop 07/29/16 at 14:13; Status DC Buspirone HCl (Buspar) 10 mg TID PO Last administered on 08/03/16 19:15; Start 07/27/16 at 21:00 Trazodone HCl (Desyrel) 12.5 mg TIDWMEALS PO Last administered on 08/03/16 11: 58; Start 07/28/16 at 08:00; Stop 08/03/16 at 13:40; Status DC Fosfomycin Tromethamine (Monurol) 3 gm 1X ONCE PO Last administered on 06:27; Start 07/29/16 at 06:30; Stop 07/29/16 at 06:32; Status DC Trazodone HCl (Desyrel) 25 mg TIDWMEALS PO Last administered on 08/03/16 16:42 ; Start 08/03/16 at 17:00 Active Scripts Active Lisinopril 20 Mg Tablet 1 Tab PO DAILY NICODERM CQ 21mg (Nicotine) 1 Each Patch.td24 1 Patch TP DAILY Lorazepam 0.5 Mg Tablet 1 Tab PO Q4HRS PRN Hydroxyzine Hcl 25 Mg Tablet 1 Tab PO Q6HRS PRN Benadryl (Diphenhydramine Hcl) 25 Mg Capsule 1 Cap PO Q6HRS Diagnosis: Problems: (1) Anxiety disorder (2) Impulse control disorder (3) Dementia, vascular, with delusions (4) Dementia, vascular, with depression (5) Dementia in Alzheimer's disease with delusions (6) Dementia in Alzheimer's disease with depression CAITLYN BHATT MD Aug 03, 2016 23:36
--- NOTE | 2016-08-04 04:18 | NUR ---
Behavior Intervention Response and Plan: BIRP Note: Behavior: Assumed Care of patient, patient located in Day Room at shift change. Patient exhibited the following behavior Exit Seeking, Disorganized, Agitated. Brief assessment on rounds of vital signs, medication needs, lab studies, and pain. Treatment plan problems Dementia with BD, and Fall Risk. Intervention: Patient assessed and the following interventions initiated safety checks 15 Minute Checks Cognitive Assessment , Head to toe Assessment , Medications. Response: After interactions and interventions patient responded in the following manner, Disorganized , Drowsy ,Cooperative. Continue to assess behaviors and condition will continue to monitor throughout the shift as needed. Plan: Continue to monitor Master Treatment Plan for patient's progress toward short term goals of Decreased Agitation, Decreased Aggression, fpc goals to return to previous living setting vs placement. Continue to assess patient for changes in above assessment. Monitor for medication needs, pain, and safety concerns. Hourly rounding performed to ensure safe environment.
[2016-08-04 06:03] VITALS: BP 155/72
[2016-08-04] MEDS: risperiDONE 0.25 MG TABLET. PO SCH ×5 (08:58→21:36)
[2016-08-04] MEDS: LISINOPRIL 20 MG TABLET PO SCH (08:58)
[2016-08-04] MEDS: DOCUSATE CALCIUM 240 MG CAPSULE PO SCH (08:58)
[2016-08-04] MEDS: NICOTINE 21MG PATCH. TD SCH (08:58)
[2016-08-04] MEDS: DIVALPROEX 125 MG CAP.SPRINK PO SCH (08:58)
[2016-08-04] MEDS: CITALOPRAM 10 MG TABLET. PO SCH (08:58)
[2016-08-04] MEDS: busPIRone 10 MG TABLET. PO SCH ×4 (08:58→20:54)
[2016-08-04] MEDS: fentaNYL 12MCG/HR 1 PATCH PATCH TD SCH (09:01)
[2016-08-04] MEDS: traZODone 50 MG TABLET. PO SCH ×3 (09:01→16:24)
[2016-08-04] MEDS: CHOLECALCIFEROL (VITAMIN D3) 1,000 UNIT TABLET PO SCH ×2 (09:01→16:24)
--- NOTE | 2016-08-04 10:00 | NUR ---
THERAPEUTIC RECREATION SMALL GROUP NOTE TITLE :[employer] Art ACTIVITY : Arts and Crafts GOAL : Increase socialization, fine motor skills, creativity DURATION : 30 minutes RESPONSE : No participation.
[2016-08-04] MEDS: hydrOXYzine HCL 25 MG TABLET PO PRN ×2 (10:20→11:28)
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
--- NOTE | 2016-08-04 11:15 | NUR ---
THERAPEUTIC RECREATION SMALL GROUP NOTE TITLE :Movement to Music: Flexibility ACTIVITY : Movement/ Exercise GOAL : Increase morale, attention, flexibility. Decrease stress/anxiety. DURATION : 40 Minutes RESPONSE : Minimal participation. Pt. joined activity for a few moments, talking quickly while dancing to the music. She left the group to wander
--- NOTE | 2016-08-04 13:11 | NUR ---
Behavior Intervention Response and Plan: BIRP Note: Behavior: Assumed Care of patient, patient located in Hallway at shift change. Patient exhibited the following behavior Exit Seeking, Combative, Anxious. Brief assessment on rounds of vital signs, medication needs, lab studies, and pain. Treatment plan problems . Intervention: Patient assessed and the following interventions initiated safety checks 15 Minute Checks Cognitive Assessment , Head to toe Assessment , Medications. Response: After interactions and interventions patient responded in the following manner, Calm , Compliant ,Cooperative. Continue to assess behaviors and condition will continue to monitor throughout the shift as needed. Plan: Continue to monitor Master Treatment Plan for patient's progress toward short term goals of Decreased Agitation, Decreased Aggression, half-way goals to return to previous living setting vs placement. Continue to assess patient for changes in above assessment. Monitor for medication needs, pain, and safety concerns. Hourly rounding performed to ensure safe environment.
--- NOTE | 2016-08-04 13:30 | NUR ---
Nursing Note Code status changed to DNR per CICI Mccoy. She stated that patient had been a DNR when transferred to medical, and it wasn't relayed upon readmit. Order changed in the computer written order left for Dr. Sanchez.
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
--- NOTE | 2016-08-04 14:00 | NUR ---
THERAPEUTIC RECREATION SMALL GROUP NOTE TITLE :Sing along with Daria ACTIVITY : Music GOAL : Increase socialization, elevate mood, stimulate memory DURATION : 60 Minutes RESPONSE : No participation.
[2016-08-04 16:04] VITALS: BP 145/84
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
[2016-08-04] MEDS: MIRTAZAPINE 15 MG TABLET PO SCH (19:17)
[2016-08-04] MEDS: TEMAZEPAM 15 MG CAPSULE PO PRN (19:17)
[2016-08-04] MEDS: traZODone 100 MG TABLET. PO SCH (19:18)
[2016-08-04] MEDS: MELATONIN 3 MG TABLET PO SCH (19:18)
--- NOTE | 2016-08-04 21:34 | PDOC ---
Exam Yaya Demential Exam: Yaya Note: Please also refer to the separate dictated note~for this date of service dictated separately.~Patient seen individually. Discussed the patient with Nursing staff reviewed the chart.~Reviewed interim history and current functioning. Reviewed vital signs,~Labs/ Radiology~and current medications noted below. Continue current treatment with the changes noted in the dictated addendum note Assessment: Vital Signs: Vital Signs Date Time Temp Pulse Resp B/P Pulse Ox O2 Delivery O2 Flow Rate FiO2 08/04/16 16:04 98.0 89 20 145/84 95 08/01/16 16:03 93.0 08/01/16 06:21 Room Air I&O Intake and Output 08/04/16 07:00 Intake Total 600 ml Balance 600 ml Intake Oral 600 ml Current Medications: Meds: Current Medications Diphenhydramine HCl (Benadryl) 25 mg Q6HRS PO ; Start 07/01/16 at 18:00; Stop at 18:00; Status DC Hydroxyzine HCl (Atarax) 25 mg PRN Q6HRS PRN PO ITCHING Last administered on 01:19; Start 07/01/16 at 15:15; Stop 07/06/16 at 04:21; Status DC Lisinopril (Prinivil) 20 mg DAILY PO Last administered on 08/04/16 08:58; Start 07/02/16 at 09:00 Lorazepam (Ativan) 0.5 mg PRN Q4HRS PRN PO ANXIETY / AGITATION Last administered on 07/02/16 21:07; Start 07/01/16 at 15:15; Stop 07/02/16 at 21:44 ; Status DC Nicotine (Nicoderm Cq 21mg) 1 patch DAILY TD Last administered on 08/04/16 08: 58; Start 07/02/16 at 09:00 Lorazepam (Ativan) 0.5 mg PRN Q4HRS PRN IV ANXIETY / AGITATION; Start 07/01/16 at 15:15; Stop 07/01/16 at 19:14; Status DC Diphenhydramine HCl (Benadryl) 25 mg PRN Q6HRS PRN IVP ITCHING; Start 07/01/16 at 15:15; Stop 07/01/16 at 19:14; Status DC Haloperidol Lactate (Haldol) 5 mg PRN Q6HRS PRN IM AGITATION; Start 07/01/16 at 15:15; Stop 07/01/16 at 19:14; Status DC Diphenhydramine HCl (Benadryl) 25 mg PRN Q6HRS PRN PO ITCHING Last administered on 07/01/16 20:56; Start 07/01/16 at 18:00 Acetaminophen/ Hydrocodone Bitart (Lortab 5/325) 1 tab PRN BID PRN PO PAIN Last administered on 08/02/16 19:34; Start 07/02/16 at 21:45 Olanzapine (Zyprexa Zydis) 2.5 mg PRN Q2HR PRN PO PSYCHOSIS Last administered on 08/04/16 16:24; Start 07/02/16 at 21:45 Mirtazapine (Remeron) 15 mg QHS PO Last administered on 08/04/16 19:17; Start 07/03/16 at 21:00 Citalopram Hydrobromide (Celexa) 10 mg DAILY PO Last administered on 08/04/16 08:58; Start 07/03/16 at 09:00 Risperidone (Risperdal) 0.25 mg BID PO Last administered on 07/10/16 08:54; Start 07/03/16 at 21:00; Stop 07/10/16 at 15:18; Status DC Docusate Calcium (Surfak) 240 mg DAILY PO Last administered on 08/04/16 08:58 ; Start 07/04/16 at 21:00 Magnesium Hydroxide (Milk Of Magnesia) 2,400 mg PRN QHS PRN PO CONSTIPATION; Start 07/04/16 at 18:15 Trazodone HCl (Desyrel) 50 mg QHS PO Last administered on 07/14/16 20:10; Start 07/05/16 at 21:00; Stop 07/15/16 at 13:52; Status DC Trazodone HCl (Desyrel) 50 mg PRN QHS PRN PO INSOMNIA Last administered on 21:27; Start 07/05/16 at 20:45; Stop 07/15/16 at 13:52; Status DC Hydroxyzine HCl (Atarax) 50 mg PRN Q2HR PRN PO Psychosis Last administered on 11:28; Start 07/06/16 at 04:30 Fentanyl (Duragesic 12mcg/ Hr) 1 patch Q3DAYS TD Last administered on 09:01; Start 07/08/16 at 18:30 Risperidone (Risperdal) 0.25 mg TID PO Last administered on 07/24/16 13:20; Start 07/10/16 at 21:00; Stop 07/24/16 at 18:29; Status DC Buspirone HCl (Buspar) 5 mg TID PO Last administered on 07/13/16 12:28; Start 07/10/16 at 21:00; Stop 07/13/16 at 15:32; Status DC Buspirone HCl (Buspar) 10 mg BID PO Last administered on 07/27/16 09:32; Start 07/13/16 at 21:00; Stop 07/27/16 at 18:29; Status DC Divalproex Sodium (Depakote Sprinkles) 125 mg BID PO Last administered on 07:46; Start 07/13/16 at 21:00; Stop 07/19/16 at 11:49; Status DC Vitamin D (Vitamin D3) 2,000 unit BIDPCLD PO Last administered on 08/04/16 16: 24; Start 07/14/16 at 12:30 Trazodone HCl (Desyrel) 100 mg QHS PO Last administered on 08/04/16 19:18; Start 07/15/16 at 21:00 Trazodone HCl (Desyrel) 100 mg PRN QHS PO ; Start 07/15/16 at 13:45; Stop at 23:01; Status DC Trazodone HCl (Desyrel) 100 mg PRN QHS PRN PO INSOMNIA Last administered on 00:53; Start 07/15/16 at 23:00 Quetiapine Fumarate (SEROquel) 50 mg 1X ONCE PO Last administered on 07/16/16 00:44; Start 07/16/16 at 00:30; Stop 07/16/16 at 00:31; Status DC Temazepam (Restoril) 30 mg PRN QHS PRN PO INSOMNIA Last administered on 19:17; Start 07/16/16 at 18:30 Divalproex Sodium (Depakote Sprinkles) 250 mg BID PO Last administered on 12:20; Start 07/19/16 at 21:00; Stop 07/22/16 at 18:23; Status DC Acetaminophen (Tylenol) 650 mg PRN Q6HRS PRN PO PAIN / TEMP Last administered on 07/22/16 15:38; Start 07/22/16 at 15:30 Divalproex Sodium (Depakote Sprinkles) 375 mg BID PO Last administered on 08:58; Start 07/22/16 at 21:00; Stop 08/04/16 at 17:56; Status DC Melatonin 6 mg QHS PO Last administered on 08/04/16 19:18; Start 07/22/16 at 21:00 Risperidone (Risperdal) 0.25 mg QID PO Last administered on 08/04/16 16:25; Start 07/24/16 at 21:00 Lorazepam (Ativan) 1 mg DAILY IM ; Start 07/27/16 at 09:00; Stop 07/27/16 at 09: 00; Status DC Lorazepam (Ativan) 1 mg 14 IM Last administered on 07/28/16 13:47; Start 07/26 at 15:00; Stop 07/29/16 at 14:13; Status DC Haloperidol Lactate (Haldol) 5 mg 1X ONCE IM Last administered on 07/27/16 16 :15; Start 07/27/16 at 16:15; Stop 07/27/16 at 16:16; Status DC Haloperidol Lactate (Haldol) 5 mg 14 IM Last administered on 07/28/16 13:46; Start 07/28/16 at 14:00; Stop 07/29/16 at 14:13; Status DC Buspirone HCl (Buspar) 10 mg TID PO Last administered on 08/04/16 08:58; Start 07/27/16 at 21:00; Stop 08/04/16 at 17:56; Status DC Trazodone HCl (Desyrel) 12.5 mg TIDWMEALS PO Last administered on 08/03/16 11: 58; Start 07/28/16 at 08:00; Stop 08/03/16 at 13:40; Status DC Fosfomycin Tromethamine (Monurol) 3 gm 1X ONCE PO Last administered on 06:27; Start 07/29/16 at 06:30; Stop 07/29/16 at 06:32; Status DC Trazodone HCl (Desyrel) 25 mg TIDWMEALS PO Last administered on 08/04/16 16:24 ; Start 08/03/16 at 17:00 Buspirone HCl (Buspar) 10 mg QID PO Last administered on 08/04/16 20:54; Start 08/04/16 at 21:00 Active Scripts Active Lisinopril 20 Mg Tablet 1 Tab PO DAILY NICODERM CQ 21mg (Nicotine) 1 Each Patch.td24 1 Patch TP DAILY Lorazepam 0.5 Mg Tablet 1 Tab PO Q4HRS PRN Hydroxyzine Hcl 25 Mg Tablet 1 Tab PO Q6HRS PRN Benadryl (Diphenhydramine Hcl) 25 Mg Capsule 1 Cap PO Q6HRS Diagnosis: Problems: (1) Encounter for psychological evaluation (2) Anxiety disorder (3) Impulse control disorder (4) Dementia, vascular, with delusions (5) Dementia, vascular, with depression (6) Dementia in Alzheimer's disease with delusions (7) Dementia in Alzheimer's disease with depression CAITLYN BHATT MD Aug 04, 2016 21:34
--- NOTE | 2016-08-05 00:10 | NUR ---
Behavior Intervention Response and Plan: BIRP Note: Behavior: Assumed Care of patient, patient located in Hallway at shift change. Patient exhibited the following behavior Agitated, Disorganized, Demanding. Brief assessment on rounds of vital signs, medication needs, lab studies, and pain. Treatment plan problems Dementia with BD, Altered Thought Process and Fall Risk. Intervention: Patient assessed and the following interventions initiated safety checks 15 Minute Checks Cognitive Assessment , Head to toe Assessment , Medications. Response: After interactions and interventions patient responded in the following manner, Disorganized , Drowsy ,Sleeping. Continue to assess behaviors and condition will continue to monitor throughout the shift as needed. Plan: Continue to monitor Master Treatment Plan for patient's progress toward short term goals of Decreased Agitation, Decreased Aggression, detention goals to return to previous living setting vs placement. Continue to assess patient for changes in above assessment. Monitor for medication needs, pain, and safety concerns. Hourly rounding performed to ensure safe environment.
--- NOTE | 2016-08-05 01:51 | PN ---
DATE: 08/03/2016 This is a late entry for 08/03/2016, covers the elements not covered in my initial note. SUBJECTIVE: The patient had a very difficult day per nursing report. Previous evening she was anxious, agitated, cursing, yelling, exit-seeking, received Zyprexa 2 or 3 times p.r.n. along with Restoril given early to try and control her behaviors with limited results. She woke up the morning of 08/03/2016, swearing, yelling, cursing, took medications ____ cupcake and then was better, otherwise she is noncompliant with medications. REVIEW OF SYSTEMS: No CV, , pulmonary, eye, ENT system symptoms on review. Reliability poor. MENTAL STATUS EXAM: Oriented to herself. Insight, judgment, recent and remote memory, attention, concentration, fund of knowledge poor, consistent with her diagnosis. IMPRESSION: Major neurocognitive disorder, Alzheimer's, vascular with depression, delusions and behavioral disturbance. Rest unchanged. PLAN: Continue current psychotropics mentioned in my initial note including Zyprexa p.r.n. Valproic acid level therapeutic at 56, continue Depakote at current dosage, Risperdal was adjusted. We will see how she does over the next day or so before making any further changes in her psychotropics. CAITLYN BHATT MD DR: ALICIA/shanon JOB#: [id number] / [id number]
[2016-08-05 06:23] VITALS: BP 156/88
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
[2016-08-05] MEDS: DOCUSATE CALCIUM 240 MG CAPSULE PO SCH (07:53)
[2016-08-05] MEDS: busPIRone 10 MG TABLET. PO SCH ×4 (07:53→19:06)
[2016-08-05] MEDS: NICOTINE 21MG PATCH. TD SCH (07:54)
[2016-08-05] MEDS: LISINOPRIL 20 MG TABLET PO SCH (07:54)
[2016-08-05] MEDS: risperiDONE 0.25 MG TABLET. PO SCH ×4 (07:54→19:05)
[2016-08-05] MEDS: CITALOPRAM 10 MG TABLET. PO SCH (07:54)
[2016-08-05] MEDS: traZODone 50 MG TABLET. PO SCH ×3 (07:55→17:00)
--- NOTE | 2016-08-05 08:05 | NUR ---
Behavior Intervention Response and Plan: BIRP Note: Behavior: Assumed Care of patient, patient located in Dining Room at shift change. Patient exhibited the following behavior Interactive, Disorganized, Resistive. Brief assessment on rounds of vital signs, medication needs, lab studies, and pain. Treatment plan problems 1 & 2. Intervention: Patient assessed and the following interventions initiated safety checks 15 Minute Checks Cognitive Assessment , Head to toe Assessment , Medications. Response: After interactions and interventions patient responded in the following manner, Calm , Compliant ,Cooperative. Continue to assess behaviors and condition will continue to monitor throughout the shift as needed. 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 Continue to assess patient for changes in above assessment. Monitor for medication needs, pain, and safety concerns. Hourly rounding performed to ensure safe environment.
--- NOTE | 2016-08-05 11:30 | NUR ---
Patient agitated, shouting profanity in Ukrainian, looking for Parvez, exit seeking. PRNs administered per eMAR.
[2016-08-05] MEDS: hydrOXYzine HCL 25 MG TABLET PO PRN (11:32)
--- NOTE | 2016-08-05 11:35 | NUR ---
SW unable to send out notes regarding possible placement due to pts current behaviors. Pt is currently still Medicaid pending making placement options very limited at this time.
[2016-08-05] MEDS: CHOLECALCIFEROL (VITAMIN D3) 1,000 UNIT TABLET PO SCH ×2 (12:30→17:00)
--- NOTE | 2016-08-05 12:45 | NUR ---
Patient continues to behave disruptively, has been secluded in [place] and PO meds were refused. MD paged, new orders received. Family informed of new orders.
[2016-08-05] MEDS: LORazepam 2 MG/ML VIAL IM SCH (13:15)
[2016-08-05] MEDS: HALOPERIDOL LACT 5 MG/ML VIAL. IM SCH (13:15)
[2016-08-05 15:47] VITALS: BP 103/65
[2016-08-05] MEDS: MELATONIN 3 MG TABLET PO SCH (19:05)
[2016-08-05] MEDS: traZODone 100 MG TABLET. PO SCH (19:05)
[2016-08-05] MEDS: MIRTAZAPINE 15 MG TABLET PO SCH (19:06)
--- NOTE | 2016-08-05 20:59 | PDOC ---
Exam Yaya Demential Exam: Yaya Note: Please also refer to the separate dictated note~for this date of service dictated separately.~Patient seen individually. Discussed the patient with Nursing staff reviewed the chart.~Reviewed interim history and current functioning. Reviewed vital signs,~Labs/ Radiology~and current medications noted below. Continue current treatment with the changes noted in the dictated addendum note Assessment: Vital Signs: Vital Signs Date Time Temp Pulse Resp B/P Pulse Ox O2 Delivery O2 Flow Rate FiO2 08/05/16 15:47 97.8 92 20 103/65 98 08/01/16 16:03 93.0 08/01/16 06:21 Room Air I&O Intake and Output 08/05/16 07:00 Intake Total 1080 ml Balance 1080 ml Intake Oral 1080 ml # Bowel Movements 2 Current Medications: Meds: Current Medications Diphenhydramine HCl (Benadryl) 25 mg Q6HRS PO ; Start 07/01/16 at 18:00; Stop at 18:00; Status DC Hydroxyzine HCl (Atarax) 25 mg PRN Q6HRS PRN PO ITCHING Last administered on 01:19; Start 07/01/16 at 15:15; Stop 07/06/16 at 04:21; Status DC Lisinopril (Prinivil) 20 mg DAILY PO Last administered on 08/05/16 07:54; Start 07/02/16 at 09:00 Lorazepam (Ativan) 0.5 mg PRN Q4HRS PRN PO ANXIETY / AGITATION Last administered on 07/02/16 21:07; Start 07/01/16 at 15:15; Stop 07/02/16 at 21:44 ; Status DC Nicotine (Nicoderm Cq 21mg) 1 patch DAILY TD Last administered on 08/05/16 07: 54; Start 07/02/16 at 09:00 Lorazepam (Ativan) 0.5 mg PRN Q4HRS PRN IV ANXIETY / AGITATION; Start 07/01/16 at 15:15; Stop 07/01/16 at 19:14; Status DC Diphenhydramine HCl (Benadryl) 25 mg PRN Q6HRS PRN IVP ITCHING; Start 07/01/16 at 15:15; Stop 07/01/16 at 19:14; Status DC Haloperidol Lactate (Haldol) 5 mg PRN Q6HRS PRN IM AGITATION; Start 07/01/16 at 15:15; Stop 07/01/16 at 19:14; Status DC Diphenhydramine HCl (Benadryl) 25 mg PRN Q6HRS PRN PO ITCHING Last administered on 07/01/16 20:56; Start 07/01/16 at 18:00 Acetaminophen/ Hydrocodone Bitart (Lortab 5/325) 1 tab PRN BID PRN PO PAIN Last administered on 08/02/16 19:34; Start 07/02/16 at 21:45 Olanzapine (Zyprexa Zydis) 2.5 mg PRN Q2HR PRN PO PSYCHOSIS Last administered on 08/05/16 11:32; Start 07/02/16 at 21:45 Mirtazapine (Remeron) 15 mg QHS PO Last administered on 08/05/16 19:06; Start 07/03/16 at 21:00 Citalopram Hydrobromide (Celexa) 10 mg DAILY PO Last administered on 08/05/16 07:54; Start 07/03/16 at 09:00 Risperidone (Risperdal) 0.25 mg BID PO Last administered on 07/10/16 08:54; Start 07/03/16 at 21:00; Stop 07/10/16 at 15:18; Status DC Docusate Calcium (Surfak) 240 mg DAILY PO Last administered on 08/05/16 07:53 ; Start 07/04/16 at 21:00 Magnesium Hydroxide (Milk Of Magnesia) 2,400 mg PRN QHS PRN PO CONSTIPATION; Start 07/04/16 at 18:15 Trazodone HCl (Desyrel) 50 mg QHS PO Last administered on 07/14/16 20:10; Start 07/05/16 at 21:00; Stop 07/15/16 at 13:52; Status DC Trazodone HCl (Desyrel) 50 mg PRN QHS PRN PO INSOMNIA Last administered on 21:27; Start 07/05/16 at 20:45; Stop 07/15/16 at 13:52; Status DC Hydroxyzine HCl (Atarax) 50 mg PRN Q2HR PRN PO Psychosis Last administered on 11:32; Start 07/06/16 at 04:30 Fentanyl (Duragesic 12mcg/ Hr) 1 patch Q3DAYS TD Last administered on 09:01; Start 07/08/16 at 18:30 Risperidone (Risperdal) 0.25 mg TID PO Last administered on 07/24/16 13:20; Start 07/10/16 at 21:00; Stop 07/24/16 at 18:29; Status DC Buspirone HCl (Buspar) 5 mg TID PO Last administered on 07/13/16 12:28; Start 07/10/16 at 21:00; Stop 07/13/16 at 15:32; Status DC Buspirone HCl (Buspar) 10 mg BID PO Last administered on 07/27/16 09:32; Start 07/13/16 at 21:00; Stop 07/27/16 at 18:29; Status DC Divalproex Sodium (Depakote Sprinkles) 125 mg BID PO Last administered on 07:46; Start 07/13/16 at 21:00; Stop 07/19/16 at 11:49; Status DC Vitamin D (Vitamin D3) 2,000 unit BIDPCLD PO Last administered on 08/05/16 17: 00; Start 07/14/16 at 12:30 Trazodone HCl (Desyrel) 100 mg QHS PO Last administered on 08/05/16 19:05; Start 07/15/16 at 21:00 Trazodone HCl (Desyrel) 100 mg PRN QHS PO ; Start 07/15/16 at 13:45; Stop at 23:01; Status DC Trazodone HCl (Desyrel) 100 mg PRN QHS PRN PO INSOMNIA Last administered on 00:53; Start 07/15/16 at 23:00 Quetiapine Fumarate (SEROquel) 50 mg 1X ONCE PO Last administered on 07/16/16 00:44; Start 07/16/16 at 00:30; Stop 07/16/16 at 00:31; Status DC Temazepam (Restoril) 30 mg PRN QHS PRN PO INSOMNIA Last administered on 19:17; Start 07/16/16 at 18:30 Divalproex Sodium (Depakote Sprinkles) 250 mg BID PO Last administered on 12:20; Start 07/19/16 at 21:00; Stop 07/22/16 at 18:23; Status DC Acetaminophen (Tylenol) 650 mg PRN Q6HRS PRN PO PAIN / TEMP Last administered on 07/22/16 15:38; Start 07/22/16 at 15:30 Divalproex Sodium (Depakote Sprinkles) 375 mg BID PO Last administered on 08:58; Start 07/22/16 at 21:00; Stop 08/04/16 at 17:56; Status DC Melatonin 6 mg QHS PO Last administered on 08/05/16 19:05; Start 07/22/16 at 21:00 Risperidone (Risperdal) 0.25 mg QID PO Last administered on 08/05/16 19:05; Start 07/24/16 at 21:00 Lorazepam (Ativan) 1 mg DAILY IM ; Start 07/27/16 at 09:00; Stop 07/27/16 at 09: 00; Status DC Lorazepam (Ativan) 1 mg 14 IM Last administered on 07/28/16 13:47; Start 07/26 at 15:00; Stop 07/29/16 at 14:13; Status DC Haloperidol Lactate (Haldol) 5 mg 1X ONCE IM Last administered on 07/27/16 16 :15; Start 07/27/16 at 16:15; Stop 07/27/16 at 16:16; Status DC Haloperidol Lactate (Haldol) 5 mg 14 IM Last administered on 07/28/16 13:46; Start 07/28/16 at 14:00; Stop 07/29/16 at 14:13; Status DC Buspirone HCl (Buspar) 10 mg TID PO Last administered on 08/04/16 08:58; Start 07/27/16 at 21:00; Stop 08/04/16 at 17:56; Status DC Trazodone HCl (Desyrel) 12.5 mg TIDWMEALS PO Last administered on 08/03/16 11: 58; Start 07/28/16 at 08:00; Stop 08/03/16 at 13:40; Status DC Fosfomycin Tromethamine (Monurol) 3 gm 1X ONCE PO Last administered on 06:27; Start 07/29/16 at 06:30; Stop 07/29/16 at 06:32; Status DC Trazodone HCl (Desyrel) 25 mg TIDWMEALS PO Last administered on 08/05/16 17:00 ; Start 08/03/16 at 17:00 Buspirone HCl (Buspar) 10 mg QID PO Last administered on 08/05/16 19:06; Start 08/04/16 at 21:00 Haloperidol Lactate (Haldol) 5 mg AFTRNOON IM Last administered on 08/05/16 13 :15; Start 08/05/16 at 13:15 Lorazepam (Ativan) 0.5 mg AFTRNOON IM Last administered on 08/05/16 13:15; Start 08/05/16 at 13:15 Active Scripts Active Lisinopril 20 Mg Tablet 1 Tab PO DAILY NICODERM CQ 21mg (Nicotine) 1 Each Patch.td24 1 Patch TP DAILY Lorazepam 0.5 Mg Tablet 1 Tab PO Q4HRS PRN Hydroxyzine Hcl 25 Mg Tablet 1 Tab PO Q6HRS PRN Benadryl (Diphenhydramine Hcl) 25 Mg Capsule 1 Cap PO Q6HRS Diagnosis: Problems: (1) Encounter for psychological evaluation (2) Anxiety disorder (3) Impulse control disorder (4) Dementia, vascular, with delusions (5) Dementia, vascular, with depression (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
--- NOTE | 2016-08-05 23:43 | NUR ---
Behavior Intervention Response and Plan: BIRP Note: Behavior: Assumed Care of patient, patient located in Hallway at shift change. Patient exhibited the following behavior Wandering, Exit Seeking, Agitated. Brief assessment on rounds of vital signs, medication needs, lab studies, and pain. Treatment plan problems Dementia with BD, Altered mental Status and Fall risk. Intervention: Patient assessed and the following interventions initiated safety checks 15 Minute Checks Cognitive Assessment , Head to toe Assessment , Medications. Response: After interactions and interventions patient responded in the following manner, Restless , Disorganized ,Drowsy. Continue to assess behaviors and condition will continue to monitor throughout the shift as needed. 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 Continue to assess patient for changes in above assessment. Monitor for medication needs, pain, and safety concerns. Hourly rounding performed to ensure safe environment.
--- NOTE | 2016-08-06 02:30 | PN ---
DATE: 08/04/2016 PSYCHIATRIC PROGRESS NOTE This is a late entry for 08/04/2016, covers elements not covered in my initial note. SUBJECTIVE: The patient had a very difficult day on 08/04/2016. Nursing staff report her being a "terror." She took her a.m. medications, then was yelling and cursing. Received Zyprexa and Atarax p.r.n. Her family visited at 11:30 and then she was much worse after they left getting into other patients' rooms, wetting on herself, defecating in the hallway, trying to smear nursing staff with this, yelling, cursing, totally unmanageable, having had to be placed in a separate hallway to reduce her stimulation and to help her calm down at times. REVIEW OF SYSTEMS: No CV, , pulmonary, eye, ENT system symptoms on review. Reliability poor. MENTAL STATUS EXAM: Oriented to herself. Insight, judgment, recent and remote memory, attention, concentration, fund of knowledge poor, consistent with her diagnosis. Speech is hyperverbal. LABORATORY DATA: Reviewed. IMPRESSION: Major neurocognitive disorder, Alzheimer, vascular with depression, delusion, behavioral disturbance. Rest diagnoses unchanged. PLAN: I have carefully reviewed her psychotropics and potential drug interactions. Once in a while, Depakote can worsen agitation and we will go ahead and stop this. Increase the BuSpar to 10 mg 4 times a day. Continue hydroxyzine, Benadryl, Zyprexa p.r.n., Remeron 15 mg at bedtime, Celexa 10 mg a day, trazodone 100 mg at bedtime, may repeat x 1, Risperdal 0.25 mg four times a day, Restoril 30 mg at bedtime p.r.n., melatonin 6 mg at bedtime, trazodone 25 mg t.i.d. with meals. We may have to restart IM Haldol, Ativan if she is noncompliant with medications and efficacy of oral medications is ineffective, but we have to try and avoid this if we can. May also need to increase her scheduled trazodone. CAITLYN BHATT MD DR: ALICIA/shanon JOB#: [id number] / [id number]
[2016-08-06] MEDS: ACETAMINOPHEN 325 MG TABLET PO PRN (04:19)
[2016-08-06 06:26] VITALS: BP 118/58
[2016-08-06] MEDS: LISINOPRIL 20 MG TABLET PO SCH (07:53)
[2016-08-06] MEDS: risperiDONE 0.25 MG TABLET. PO SCH ×4 (07:53→19:53)
[2016-08-06] MEDS: busPIRone 10 MG TABLET. PO SCH ×4 (07:54→19:53)
[2016-08-06] MEDS: traZODone 50 MG TABLET. PO SCH ×3 (07:54→19:53)
[2016-08-06] MEDS: DOCUSATE CALCIUM 240 MG CAPSULE PO SCH (07:54)
[2016-08-06] MEDS: CITALOPRAM 10 MG TABLET. PO SCH (07:54)
[2016-08-06] MEDS: NICOTINE 21MG PATCH. TD SCH (07:54)
--- NOTE | 2016-08-06 08:10 | NUR ---
Behavior Intervention Response and Plan: BIRP Note: Behavior: Assumed Care of patient, patient located in Dining Room at shift change. Patient exhibited the following behavior Calm, Disorganized, Compliant. Brief assessment on rounds of vital signs, medication needs, lab studies, and pain. Treatment plan problems 1 & 2. Intervention: Patient assessed and the following interventions initiated safety checks 15 Minute Checks Cognitive Assessment , Head to toe Assessment , Medications. Response: After interactions and interventions patient responded in the following manner, Calm , Cooperative ,Compliant. Continue to assess behaviors and condition will continue to monitor throughout the shift as needed. 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 Continue to assess patient for changes in above assessment. Monitor for medication needs, pain, and safety concerns. Hourly rounding performed to ensure safe environment.
--- NOTE | 2016-08-06 10:30 | NUR ---
patient wandering in [place], speaking to herself in Maori, asking staff how to get to her house in [place]. Will continue to monitor behaviors.
--- NOTE | 2016-08-06 11:15 | NUR ---
THERAPEUTIC RECREATION GROUP NOTE TITLE :Movement to Music: Flexibility ACTIVITY : Movement/ Exercise GOAL : Increase morale, attention, flexibility. Decrease stress/anxiety. DURATION : 40 Minutes RESPONSE : Moderate participation. Pt. stayed with the group the entire time and intermittently followed along with workout moves and made her own occasionally. She wandered around the room towards the end, asking where her purse was. She was calm and pleasant the entire time.
[2016-08-06] MEDS: HALOPERIDOL LACT 5 MG/ML VIAL. IM SCH (13:00)
[2016-08-06] MEDS: LORazepam 2 MG/ML VIAL IM SCH (13:00)
[2016-08-06] MEDS: CHOLECALCIFEROL (VITAMIN D3) 1,000 UNIT TABLET PO SCH ×2 (13:12→16:38)
[2016-08-06] MEDS: HYDROcodone/APAP 5/325MG 1 TAB TABLET PO PRN (13:12)
--- NOTE | 2016-08-06 14:00 | NUR ---
THERAPEUTIC RECREATION GROUP NOTE TITLE :Balloon Bop with Noodles ACTIVITY : Activities and Games GOAL : Increase socialization and alertness. Maintain/improve mental and physical functioning. DURATION : 30 minutes RESPONSE : Moderate participation. Pt. socialized with other patient and intermittently bumped balloon with noodle and hand.
[2016-08-06 15:44] VITALS: BP 150/77
[2016-08-06] MEDS: hydrOXYzine HCL 25 MG TABLET PO PRN (18:19)
--- NOTE | 2016-08-06 18:28 | NUR ---
Patient in hallway, asking for her purse and someone to take her home. She states that she feels stupid, and is visibly agitated. PRN meds provided per eMAR, will continue to monitor.
[2016-08-06] MEDS: traZODone 100 MG TABLET. PO SCH (19:52)
[2016-08-06] MEDS: MELATONIN 3 MG TABLET PO SCH (19:52)
[2016-08-06] MEDS: MIRTAZAPINE 15 MG TABLET PO SCH (19:53)
[2016-08-06] MEDS: TEMAZEPAM 15 MG CAPSULE PO PRN (19:54)
--- NOTE | 2016-08-06 20:59 | PDOC ---
Exam Yaya Demential Exam: Yaya Note: Please also refer to the separate dictated note~for this date of service dictated separately.~Patient seen individually. Discussed the patient with Nursing staff reviewed the chart.~Reviewed interim history and current functioning. Reviewed vital signs,~Labs/ Radiology~and current medications noted below. Continue current treatment with the changes noted in the dictated addendum note Assessment: Vital Signs: Vital Signs Date Time Temp Pulse Resp B/P Pulse Ox O2 Delivery O2 Flow Rate FiO2 08/06/16 15:44 98.5 68 20 150/77 97 08/06/16 15:00 Room Air 08/01/16 16:03 93.0 I&O Intake and Output 08/06/16 07:00 Intake Total 720 ml Balance 720 ml Intake Oral 720 ml Current Medications: Meds: Current Medications Diphenhydramine HCl (Benadryl) 25 mg Q6HRS PO ; Start 07/01/16 at 18:00; Stop at 18:00; Status DC Hydroxyzine HCl (Atarax) 25 mg PRN Q6HRS PRN PO ITCHING Last administered on 01:19; Start 07/01/16 at 15:15; Stop 07/06/16 at 04:21; Status DC Lisinopril (Prinivil) 20 mg DAILY PO Last administered on 08/06/16 07:53; Start 07/02/16 at 09:00 Lorazepam (Ativan) 0.5 mg PRN Q4HRS PRN PO ANXIETY / AGITATION Last administered on 07/02/16 21:07; Start 07/01/16 at 15:15; Stop 07/02/16 at 21:44 ; Status DC Nicotine (Nicoderm Cq 21mg) 1 patch DAILY TD Last administered on 08/06/16 07: 54; Start 07/02/16 at 09:00 Lorazepam (Ativan) 0.5 mg PRN Q4HRS PRN IV ANXIETY / AGITATION; Start 07/01/16 at 15:15; Stop 07/01/16 at 19:14; Status DC Diphenhydramine HCl (Benadryl) 25 mg PRN Q6HRS PRN IVP ITCHING; Start 07/01/16 at 15:15; Stop 07/01/16 at 19:14; Status DC Haloperidol Lactate (Haldol) 5 mg PRN Q6HRS PRN IM AGITATION; Start 07/01/16 at 15:15; Stop 07/01/16 at 19:14; Status DC Diphenhydramine HCl (Benadryl) 25 mg PRN Q6HRS PRN PO ITCHING Last administered on 07/01/16 20:56; Start 07/01/16 at 18:00 Acetaminophen/ Hydrocodone Bitart (Lortab 5/325) 1 tab PRN BID PRN PO PAIN Last administered on 08/06/16 13:12; Start 07/02/16 at 21:45 Olanzapine (Zyprexa Zydis) 2.5 mg PRN Q2HR PRN PO PSYCHOSIS Last administered on 08/05/16 11:32; Start 07/02/16 at 21:45 Mirtazapine (Remeron) 15 mg QHS PO Last administered on 08/06/16 19:53; Start 07/03/16 at 21:00 Citalopram Hydrobromide (Celexa) 10 mg DAILY PO Last administered on 08/06/16 07:54; Start 07/03/16 at 09:00 Risperidone (Risperdal) 0.25 mg BID PO Last administered on 07/10/16 08:54; Start 07/03/16 at 21:00; Stop 07/10/16 at 15:18; Status DC Docusate Calcium (Surfak) 240 mg DAILY PO Last administered on 08/06/16 07:54 ; Start 07/04/16 at 21:00 Magnesium Hydroxide (Milk Of Magnesia) 2,400 mg PRN QHS PRN PO CONSTIPATION; Start 07/04/16 at 18:15 Trazodone HCl (Desyrel) 50 mg QHS PO Last administered on 07/14/16 20:10; Start 07/05/16 at 21:00; Stop 07/15/16 at 13:52; Status DC Trazodone HCl (Desyrel) 50 mg PRN QHS PRN PO INSOMNIA Last administered on 21:27; Start 07/05/16 at 20:45; Stop 07/15/16 at 13:52; Status DC Hydroxyzine HCl (Atarax) 50 mg PRN Q2HR PRN PO Psychosis Last administered on 18:19; Start 07/06/16 at 04:30 Fentanyl (Duragesic 12mcg/ Hr) 1 patch Q3DAYS TD Last administered on 09:01; Start 07/08/16 at 18:30 Risperidone (Risperdal) 0.25 mg TID PO Last administered on 07/24/16 13:20; Start 07/10/16 at 21:00; Stop 07/24/16 at 18:29; Status DC Buspirone HCl (Buspar) 5 mg TID PO Last administered on 07/13/16 12:28; Start 07/10/16 at 21:00; Stop 07/13/16 at 15:32; Status DC Buspirone HCl (Buspar) 10 mg BID PO Last administered on 07/27/16 09:32; Start 07/13/16 at 21:00; Stop 07/27/16 at 18:29; Status DC Divalproex Sodium (Depakote Sprinkles) 125 mg BID PO Last administered on 07:46; Start 07/13/16 at 21:00; Stop 07/19/16 at 11:49; Status DC Vitamin D (Vitamin D3) 2,000 unit BIDPCLD PO Last administered on 08/06/16 16: 38; Start 07/14/16 at 12:30 Trazodone HCl (Desyrel) 100 mg QHS PO Last administered on 08/06/16 19:52; Start 07/15/16 at 21:00 Trazodone HCl (Desyrel) 100 mg PRN QHS PO ; Start 07/15/16 at 13:45; Stop at 23:01; Status DC Trazodone HCl (Desyrel) 100 mg PRN QHS PRN PO INSOMNIA Last administered on 00:53; Start 07/15/16 at 23:00 Quetiapine Fumarate (SEROquel) 50 mg 1X ONCE PO Last administered on 07/16/16 00:44; Start 07/16/16 at 00:30; Stop 07/16/16 at 00:31; Status DC Temazepam (Restoril) 30 mg PRN QHS PRN PO INSOMNIA Last administered on 19:54; Start 07/16/16 at 18:30 Divalproex Sodium (Depakote Sprinkles) 250 mg BID PO Last administered on 12:20; Start 07/19/16 at 21:00; Stop 07/22/16 at 18:23; Status DC Acetaminophen (Tylenol) 650 mg PRN Q6HRS PRN PO PAIN / TEMP Last administered on 08/06/16 04:19; Start 07/22/16 at 15:30 Divalproex Sodium (Depakote Sprinkles) 375 mg BID PO Last administered on 08:58; Start 07/22/16 at 21:00; Stop 08/04/16 at 17:56; Status DC Melatonin 6 mg QHS PO Last administered on 08/06/16 19:52; Start 07/22/16 at 21:00 Risperidone (Risperdal) 0.25 mg QID PO Last administered on 08/06/16 19:53; Start 07/24/16 at 21:00 Lorazepam (Ativan) 1 mg DAILY IM ; Start 07/27/16 at 09:00; Stop 07/27/16 at 09: 00; Status DC Lorazepam (Ativan) 1 mg 14 IM Last administered on 07/28/16 13:47; Start 07/26 at 15:00; Stop 07/29/16 at 14:13; Status DC Haloperidol Lactate (Haldol) 5 mg 1X ONCE IM Last administered on 07/27/16 16 :15; Start 07/27/16 at 16:15; Stop 07/27/16 at 16:16; Status DC Haloperidol Lactate (Haldol) 5 mg 14 IM Last administered on 07/28/16 13:46; Start 07/28/16 at 14:00; Stop 07/29/16 at 14:13; Status DC Buspirone HCl (Buspar) 10 mg TID PO Last administered on 08/04/16 08:58; Start 07/27/16 at 21:00; Stop 08/04/16 at 17:56; Status DC Trazodone HCl (Desyrel) 12.5 mg TIDWMEALS PO Last administered on 08/03/16 11: 58; Start 07/28/16 at 08:00; Stop 08/03/16 at 13:40; Status DC Fosfomycin Tromethamine (Monurol) 3 gm 1X ONCE PO Last administered on 06:27; Start 07/29/16 at 06:30; Stop 07/29/16 at 06:32; Status DC Trazodone HCl (Desyrel) 25 mg TIDWMEALS PO Last administered on 08/06/16 07:54 ; Start 08/03/16 at 17:00; Stop 08/06/16 at 11:24; Status DC Buspirone HCl (Buspar) 10 mg QID PO Last administered on 08/06/16 19:53; Start 08/04/16 at 21:00 Haloperidol Lactate (Haldol) 5 mg AFTRNOON IM Last administered on 08/05/16 13 :15; Start 08/05/16 at 13:15 Lorazepam (Ativan) 0.5 mg AFTRNOON IM Last administered on 08/05/16 13:15; Start 08/05/16 at 13:15 Oxcarbazepine (Trileptal) 300 mg BID PO Last administered on 08/06/16 19:52; Start 08/06/16 at 21:00 Trazodone HCl (Desyrel) 50 mg BID PO Last administered on 08/06/16 19:53; Start 08/06/16 at 21:00 Trazodone HCl (Desyrel) 50 mg 14 PO Last administered on 08/06/16 13:11; Start 08/06/16 at 14:00 Active Scripts Active Lisinopril 20 Mg Tablet 1 Tab PO DAILY NICODERM CQ 21mg (Nicotine) 1 Each Patch.td24 1 Patch TP DAILY Lorazepam 0.5 Mg Tablet 1 Tab PO Q4HRS PRN Hydroxyzine Hcl 25 Mg Tablet 1 Tab PO Q6HRS PRN Benadryl (Diphenhydramine Hcl) 25 Mg Capsule 1 Cap PO Q6HRS Diagnosis: Problems: (1) Encounter for psychological evaluation (2) Anxiety disorder (3) Impulse control disorder (4) Dementia, vascular, with delusions (5) Dementia, vascular, with depression (6) Dementia in Alzheimer's disease with delusions (7) Dementia in Alzheimer's disease with depression CAITLYN BHATT MD Aug 06, 2016 20:59
--- NOTE | 2016-08-06 22:40 | NUR ---
Behavior Intervention Response and Plan: BIRP Note: Behavior: Assumed Care of patient, patient located in Day Room at shift change. Patient exhibited the following behavior Wandering, Restless, Irritable. Brief assessment on rounds of vital signs, medication needs, lab studies, and pain. Treatment plan problems 1 and 2. Intervention: Patient assessed and the following interventions initiated safety checks 15 Minute Checks Cognitive Assessment , Head to toe Assessment , Medications. Response: After interactions and interventions patient responded in the following manner, Wandering , Calm ,Cooperative. Continue to assess behaviors and condition will continue to monitor throughout the shift as needed. Plan: Continue to monitor Master Treatment Plan for patient's progress toward short term goals of Decreased Agitation, Decreased Aggression, resolution agent goals to return to previous living setting vs placement. Continue to assess patient for changes in above assessment. Monitor for medication needs, pain, and safety concerns. Hourly rounding performed to ensure safe environment.
[2016-08-07 05:37] VITALS: BP 151/82
[2016-08-07] MEDS: risperiDONE 0.25 MG TABLET. PO SCH ×4 (08:45→19:03)
[2016-08-07] MEDS: DOCUSATE CALCIUM 240 MG CAPSULE PO SCH ×2 (08:45→09:00)
[2016-08-07] MEDS: CITALOPRAM 10 MG TABLET. PO SCH (08:45)
[2016-08-07] MEDS: LISINOPRIL 20 MG TABLET PO SCH (08:45)
[2016-08-07] MEDS: traZODone 50 MG TABLET. PO SCH ×3 (08:46→19:03)
[2016-08-07] MEDS: NICOTINE 21MG PATCH. TD SCH (08:46)
[2016-08-07] MEDS: busPIRone 10 MG TABLET. PO SCH ×4 (08:46→19:02)
[2016-08-07] MEDS: fentaNYL 12MCG/HR 1 PATCH PATCH TD SCH (08:49)
--- NOTE | 2016-08-07 08:54 | NUR ---
Patient wandering halls, stating we are all in her house and need to get out, visibly agitated. PRN meds provided, will monitor for changes in behaviour.
--- NOTE | 2016-08-07 09:10 | NUR ---
Behavior Intervention Response and Plan: BIRP Note: Behavior: Assumed Care of patient, patient located in Day Room at shift change. Patient exhibited the following behavior Wandering, Resistive, Agitated. Brief assessment on rounds of vital signs, medication needs, lab studies, and pain. Treatment plan problems 1 & 2. Intervention: Patient assessed and the following interventions initiated safety checks 15 Minute Checks Cognitive Assessment , Head to toe Assessment , Medications. Response: After interactions and interventions patient responded in the following manner, Calm , Compliant ,Cooperative. Continue to assess behaviors and condition will continue to monitor throughout the shift as needed. 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 Continue to assess patient for changes in above assessment. Monitor for medication needs, pain, and safety concerns. Hourly rounding performed to ensure safe environment.
--- NOTE | 2016-08-07 12:00 | NUR ---
Attempted to provide patient with morning meds, she refused. Will attempt again later. Addendum: 08/07/16 at 1605 by LAMBERTO SKELTON II, RN Wrong patient
[2016-08-07] MEDS: CHOLECALCIFEROL (VITAMIN D3) 1,000 UNIT TABLET PO SCH ×2 (13:21→18:17)
[2016-08-07 15:27] VITALS: BP 111/78
[2016-08-07] MEDS: hydrOXYzine HCL 25 MG TABLET PO PRN (15:54)
--- NOTE | 2016-08-07 16:01 | NUR ---
Patient is pushing a chair down the hallway, calling out for Edgar, asking other patients for her purse, and arguing with Kristel in French. PRN meds provided per eMAR, will continue to monitor behaviours.
[2016-08-07] MEDS: LORazepam 2 MG/ML VIAL IM SCH (16:55)
[2016-08-07] MEDS: HALOPERIDOL LACT 5 MG/ML VIAL. IM SCH (16:55)
--- NOTE | 2016-08-07 17:00 | NUR ---
Patient is increasing in agitation, cursing in [place], visibly angry, yelling at other patients, and stating we stole her money. Scheduled IM meds provided per eMAR, patient in west hallway to calm down, will continue to monitor.
[2016-08-07] MEDS: traZODone 100 MG TABLET. PO SCH (19:02)
[2016-08-07] MEDS: MIRTAZAPINE 15 MG TABLET PO SCH (19:02)
[2016-08-07] MEDS: MELATONIN 3 MG TABLET PO SCH (19:03)
[2016-08-07] MEDS: TEMAZEPAM 15 MG CAPSULE PO PRN (19:04)
--- NOTE | 2016-08-07 20:50 | PDOC ---
Exam Yaya Demential Exam: Yaya Note: Please also refer to the separate dictated note~for this date of service dictated separately.~Patient seen individually. Discussed the patient with Nursing staff reviewed the chart.~Reviewed interim history and current functioning. Reviewed vital signs,~Labs/ Radiology~and current medications noted below. Continue current treatment with the changes noted in the dictated addendum note Assessment: Vital Signs: Vital Signs Date Time Temp Pulse Resp B/P Pulse Ox O2 Delivery O2 Flow Rate FiO2 08/07/16 15:27 98.2 67 16 111/78 99 Room Air 08/01/16 16:03 93.0 I&O Intake and Output 08/07/16 07:00 Intake Total 1500 ml Balance 1500 ml Intake Oral 1500 ml # Voids 3 # Bowel Movements 1 Current Medications: Meds: Current Medications Diphenhydramine HCl (Benadryl) 25 mg Q6HRS PO ; Start 07/01/16 at 18:00; Stop at 18:00; Status DC Hydroxyzine HCl (Atarax) 25 mg PRN Q6HRS PRN PO ITCHING Last administered on 01:19; Start 07/01/16 at 15:15; Stop 07/06/16 at 04:21; Status DC Lisinopril (Prinivil) 20 mg DAILY PO Last administered on 08/07/16 08:45; Start 07/02/16 at 09:00 Lorazepam (Ativan) 0.5 mg PRN Q4HRS PRN PO ANXIETY / AGITATION Last administered on 07/02/16 21:07; Start 07/01/16 at 15:15; Stop 07/02/16 at 21:44 ; Status DC Nicotine (Nicoderm Cq 21mg) 1 patch DAILY TD Last administered on 08/07/16 08: 46; Start 07/02/16 at 09:00 Lorazepam (Ativan) 0.5 mg PRN Q4HRS PRN IV ANXIETY / AGITATION; Start 07/01/16 at 15:15; Stop 07/01/16 at 19:14; Status DC Diphenhydramine HCl (Benadryl) 25 mg PRN Q6HRS PRN IVP ITCHING; Start 07/01/16 at 15:15; Stop 07/01/16 at 19:14; Status DC Haloperidol Lactate (Haldol) 5 mg PRN Q6HRS PRN IM AGITATION; Start 07/01/16 at 15:15; Stop 07/01/16 at 19:14; Status DC Diphenhydramine HCl (Benadryl) 25 mg PRN Q6HRS PRN PO ITCHING Last administered on 07/01/16 20:56; Start 07/01/16 at 18:00 Acetaminophen/ Hydrocodone Bitart (Lortab 5/325) 1 tab PRN BID PRN PO PAIN Last administered on 08/06/16 13:12; Start 07/02/16 at 21:45 Olanzapine (Zyprexa Zydis) 2.5 mg PRN Q2HR PRN PO PSYCHOSIS Last administered on 08/07/16 15:54; Start 07/02/16 at 21:45 Mirtazapine (Remeron) 15 mg QHS PO Last administered on 08/07/16 19:02; Start 07/03/16 at 21:00 Citalopram Hydrobromide (Celexa) 10 mg DAILY PO Last administered on 08/07/16 08:45; Start 07/03/16 at 09:00 Risperidone (Risperdal) 0.25 mg BID PO Last administered on 07/10/16 08:54; Start 07/03/16 at 21:00; Stop 07/10/16 at 15:18; Status DC Docusate Calcium (Surfak) 240 mg DAILY PO Last administered on 08/06/16 07:54 ; Start 07/04/16 at 21:00 Magnesium Hydroxide (Milk Of Magnesia) 2,400 mg PRN QHS PRN PO CONSTIPATION; Start 07/04/16 at 18:15 Trazodone HCl (Desyrel) 50 mg QHS PO Last administered on 07/14/16 20:10; Start 07/05/16 at 21:00; Stop 07/15/16 at 13:52; Status DC Trazodone HCl (Desyrel) 50 mg PRN QHS PRN PO INSOMNIA Last administered on 21:27; Start 07/05/16 at 20:45; Stop 07/15/16 at 13:52; Status DC Hydroxyzine HCl (Atarax) 50 mg PRN Q2HR PRN PO Psychosis Last administered on 15:54; Start 07/06/16 at 04:30 Fentanyl (Duragesic 12mcg/ Hr) 1 patch Q3DAYS TD Last administered on 08:49; Start 07/08/16 at 18:30 Risperidone (Risperdal) 0.25 mg TID PO Last administered on 07/24/16 13:20; Start 07/10/16 at 21:00; Stop 07/24/16 at 18:29; Status DC Buspirone HCl (Buspar) 5 mg TID PO Last administered on 07/13/16 12:28; Start 07/10/16 at 21:00; Stop 07/13/16 at 15:32; Status DC Buspirone HCl (Buspar) 10 mg BID PO Last administered on 07/27/16 09:32; Start 07/13/16 at 21:00; Stop 07/27/16 at 18:29; Status DC Divalproex Sodium (Depakote Sprinkles) 125 mg BID PO Last administered on 07:46; Start 07/13/16 at 21:00; Stop 07/19/16 at 11:49; Status DC Vitamin D (Vitamin D3) 2,000 unit BIDPCLD PO Last administered on 08/07/16 18: 17; Start 07/14/16 at 12:30 Trazodone HCl (Desyrel) 100 mg QHS PO Last administered on 08/07/16 19:02; Start 07/15/16 at 21:00 Trazodone HCl (Desyrel) 100 mg PRN QHS PO ; Start 07/15/16 at 13:45; Stop at 23:01; Status DC Trazodone HCl (Desyrel) 100 mg PRN QHS PRN PO INSOMNIA Last administered on 00:53; Start 07/15/16 at 23:00 Quetiapine Fumarate (SEROquel) 50 mg 1X ONCE PO Last administered on 07/16/16 00:44; Start 07/16/16 at 00:30; Stop 07/16/16 at 00:31; Status DC Temazepam (Restoril) 30 mg PRN QHS PRN PO INSOMNIA Last administered on 19:04; Start 07/16/16 at 18:30 Divalproex Sodium (Depakote Sprinkles) 250 mg BID PO Last administered on 12:20; Start 07/19/16 at 21:00; Stop 07/22/16 at 18:23; Status DC Acetaminophen (Tylenol) 650 mg PRN Q6HRS PRN PO PAIN / TEMP Last administered on 08/06/16 04:19; Start 07/22/16 at 15:30 Divalproex Sodium (Depakote Sprinkles) 375 mg BID PO Last administered on 08:58; Start 07/22/16 at 21:00; Stop 08/04/16 at 17:56; Status DC Melatonin 6 mg QHS PO Last administered on 08/07/16 19:03; Start 07/22/16 at 21:00 Risperidone (Risperdal) 0.25 mg QID PO Last administered on 08/07/16 19:03; Start 07/24/16 at 21:00 Lorazepam (Ativan) 1 mg DAILY IM ; Start 07/27/16 at 09:00; Stop 07/27/16 at 09: 00; Status DC Lorazepam (Ativan) 1 mg 14 IM Last administered on 07/28/16 13:47; Start 07/26 at 15:00; Stop 07/29/16 at 14:13; Status DC Haloperidol Lactate (Haldol) 5 mg 1X ONCE IM Last administered on 07/27/16 16 :15; Start 07/27/16 at 16:15; Stop 07/27/16 at 16:16; Status DC Haloperidol Lactate (Haldol) 5 mg 14 IM Last administered on 07/28/16 13:46; Start 07/28/16 at 14:00; Stop 07/29/16 at 14:13; Status DC Buspirone HCl (Buspar) 10 mg TID PO Last administered on 08/04/16 08:58; Start 07/27/16 at 21:00; Stop 08/04/16 at 17:56; Status DC Trazodone HCl (Desyrel) 12.5 mg TIDWMEALS PO Last administered on 08/03/16 11: 58; Start 07/28/16 at 08:00; Stop 08/03/16 at 13:40; Status DC Fosfomycin Tromethamine (Monurol) 3 gm 1X ONCE PO Last administered on 06:27; Start 07/29/16 at 06:30; Stop 07/29/16 at 06:32; Status DC Trazodone HCl (Desyrel) 25 mg TIDWMEALS PO Last administered on 08/06/16 07:54 ; Start 08/03/16 at 17:00; Stop 08/06/16 at 11:24; Status DC Buspirone HCl (Buspar) 10 mg QID PO Last administered on 08/07/16 19:02; Start 08/04/16 at 21:00 Haloperidol Lactate (Haldol) 5 mg AFTRNOON IM Last administered on 08/07/16 16 :55; Start 08/05/16 at 13:15 Lorazepam (Ativan) 0.5 mg AFTRNOON IM Last administered on 08/07/16 16:55; Start 08/05/16 at 13:15 Oxcarbazepine (Trileptal) 300 mg BID PO Last administered on 08/07/16 19:03; Start 08/06/16 at 21:00 Trazodone HCl (Desyrel) 50 mg BID PO Last administered on 08/07/16 19:03; Start 08/06/16 at 21:00 Trazodone HCl (Desyrel) 50 mg 14 PO Last administered on 08/07/16 13:20; Start 08/06/16 at 14:00 Active Scripts Active Lisinopril 20 Mg Tablet 1 Tab PO DAILY NICODERM CQ 21mg (Nicotine) 1 Each Patch.td24 1 Patch TP DAILY Lorazepam 0.5 Mg Tablet 1 Tab PO Q4HRS PRN Hydroxyzine Hcl 25 Mg Tablet 1 Tab PO Q6HRS PRN Benadryl (Diphenhydramine Hcl) 25 Mg Capsule 1 Cap PO Q6HRS Diagnosis: Problems: (1) Encounter for psychological evaluation (2) Anxiety disorder (3) Impulse control disorder (4) Dementia, vascular, with delusions (5) Dementia, vascular, with depression (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
--- NOTE | 2016-08-07 20:59 | PN ---
DATE: 08/05/2016 PSYCHIATRIC PROGRESS NOTE This is late entry of 08/05/2016, covers elements not covered in my initial note. SUBJECTIVE: Overall, the patient remains extremely labile, up and down in her mood, intermittently aggressive, agitated, restless, yelling out for Parvez, repeatedly opening the kitchen door, feels people are getting into her house, smashed food on the window. She is restarted on scheduled IM Haldol, Ativan not as a p.r.n. restraint but rather as a route of administration of psychotropics since the oral route was ineffective. REVIEW OF SYSTEMS: No CV, , pulmonary, eye, ENT system symptoms on review. Reliability poor. MENTAL STATUS EXAMINATION: Oriented to herself. Insight, judgment, recent and remote memory, attention, concentration, fund of knowledge poor, consistent with her diagnosis mentioned in my initial note. PLAN: Restart IM Haldol and Ativan 5 mg/0.5 mg daily. Maintain rest of the psychotropics mentioned in my initial note. Depakote has been stopped since there was a question whether this could be worsening her agitation. We will reassess gradually. CAITLYN BHATT MD DR: ALICIA/shanon JOB#: [id number] / [id number]
--- NOTE | 2016-08-08 01:37 | PN ---
DATE: 08/06/2016 PSYCHIATRIC PROGRESS NOTE This is late entry of 08/06/2016, covers elements not covered in my initial note. SUBJECTIVE: The patient was staffed at treatment team meeting on morning of 08/06/2016, seen individually evening of 08/06/2016. She has been intermittently labile, went back to her room, was angry at nursing staff, urinated, possibly defecated in a cup and threw it at the nursing staff. REVIEW OF SYSTEMS: No CV, , pulmonary, eye, ENT system symptoms on review. Reliability poor. MENTAL STATUS EXAMINATION: Oriented to herself. Insight, judgment, recent and remote memory, attention, concentration, fund of knowledge poor, consistent with her diagnosis mentioned in my initial note. IMPRESSION: Major neurocognitive disorder, Alzheimer, vascular with depression, delusion, behavioral disturbance; possible schizoaffective disorder, bipolar type, mixed with psychotic features. Rest diagnoses unchanged. PLAN: Depakote was stopped since there was a question whether it was increasing her agitation. We will start her on Trileptal for her mood disorder 300 mg twice a day, increase trazodone scheduled from 25 t.i.d. to 50 in the morning and evening, 25 in the afternoon. Maintain rest of the psychotropics mentioned in my initial note. CAITLYN BHATT MD DR: ALICIA/shanon JOB#: [id number] / [id number]
--- NOTE | 2016-08-08 03:06 | NUR ---
Behavior Intervention Response and Plan: BIRP Note: Behavior: Assumed Care of patient, patient located in Day Room at shift change. Patient exhibited the following behavior Wandering, Calm, Disorganized. Brief assessment on rounds of vital signs, medication needs, lab studies, and pain. Treatment plan problems 1 and 2. Intervention: Patient assessed and the following interventions initiated safety checks 15 Minute Checks Cognitive Assessment , Head to toe Assessment , Medications. Response: After interactions and interventions patient responded in the following manner, Calm , Compliant ,Cooperative. Continue to assess behaviors and condition will continue to monitor throughout the shift as needed. 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 Continue to assess patient for changes in above assessment. Monitor for medication needs, pain, and safety concerns. Hourly rounding performed to ensure safe environment.
[2016-08-08] MEDS: CITALOPRAM 10 MG TABLET. PO SCH ×2 (08:14→09:00)
[2016-08-08] MEDS: traZODone 50 MG TABLET. PO SCH ×4 (08:14→21:00)
[2016-08-08] MEDS: busPIRone 10 MG TABLET. PO SCH ×5 (08:14→21:00)
[2016-08-08] MEDS: risperiDONE 0.25 MG TABLET. PO SCH ×5 (08:15→21:00)
[2016-08-08] MEDS: DOCUSATE CALCIUM 240 MG CAPSULE PO SCH ×2 (08:15→09:00)
[2016-08-08] MEDS: NICOTINE 21MG PATCH. TD SCH ×2 (08:16→09:00)
[2016-08-08] MEDS: CHOLECALCIFEROL (VITAMIN D3) 1,000 UNIT TABLET PO SCH ×3 (08:16→17:30)
[2016-08-08 08:28] LABS: HEMOGLOBIN 11.2 g/dL (12.0-15.5); RED BLOOD COUNT 3.77 x10^6/uL (3.50-5.40); WHITE BLOOD COUNT 17.2 x10^3/uL (4.0-11.0)
[2016-08-08 08:29] LABS: BASO # 0.1 x10^3/uL (0.0-0.2); BASO % 0 % (0-3); EOS # 0.1 x10^3/uL (0.0-0.7); EOS % 0 % (0-3); HEMATOCRIT 34.1 % (36.0-47.0); LYMPH # 2.5 x10^3/uL (1.0-4.8); LYMPH % 15 % (24-48); MEAN CORPUSCULAR HEMOGLOBIN 30 pg (25-35); MEAN CORPUSCULAR HGB CONC 33 g/dL (31-37); MEAN CORPUSCULAR VOLUME 90 fL (79-100); MONO # 1.7 x10^3/uL (0.0-1.1); MONO % 10 % (0-9); NEUT # 12.8 x10^3uL (1.8-7.7); NEUT % 75 % (31-73); PLATELET COUNT 461 x10^3/uL (140-400); RED CELL DISTRIBUTION WIDTH 14.8 % (11.5-14.5)
[2016-08-08 08:43] LABS: ALBUMIN 2.8 g/dL (3.4-5.0); ALBUMIN/GLOBULIN RATIO 0.7 (1.0-1.7); CALCIUM 8.4 mg/dL (8.5-10.1); CREATININE 0.9 mg/dL (0.6-1.0); GFR 61.7; POTASSIUM 4.1 mmol/L (3.5-5.1); TOTAL BILIRUBIN 0.3 mg/dL (0.2-1.0)
[2016-08-08] MEDS: LISINOPRIL 20 MG TABLET PO SCH (09:00)
[2016-08-08 10:57] LABS: % BANDS 1 % (0-9); % BASOS 0 % (0-3); % EOS 0 % (0-5); % LYMPHS 19 % (24-48); % MONOS 8 % (0-10); % SEGS 72 % (35-66); PLT ESTIMATE INCREASED (ADEQUATE)
--- NOTE | 2016-08-08 11:08 | NUR ---
Behavior Intervention Response and Plan: BIRP Note: Behavior: Assumed Care of patient, patient located in patient room at shift change. Patient exhibited the following behavior drowsy, complaint. Brief assessment on rounds of vital signs, medication needs, lab studies, and pain. Treatment plan problems Dementia with BD, Altered Thought Process and Fall Risk. Intervention: Patient assessed and the following interventions initiated safety checks 15 Minute Checks Cognitive Assessment , Head to toe Assessment , Medications. Response: After interactions and interventions patient responded in the following manner, confused, drowsy, and compliant. Continue to assess behaviors and condition will continue to monitor throughout the shift as needed. 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 Continue to assess patient for changes in above assessment. Monitor for medication needs, pain, and safety concerns. Hourly rounding performed to ensure safe environment.
[2016-08-08] MEDS: HALOPERIDOL LACT 5 MG/ML VIAL. IM SCH (13:00)
[2016-08-08] MEDS: LORazepam 2 MG/ML VIAL IM SCH (13:00)
[2016-08-08 13:37] VITALS: BP 160/84
--- NOTE | 2016-08-08 13:38 | NUR ---
Pt appears drowsy today. Medications held thus far today and fentanyl patch removed. Will continue to monitor.
--- NOTE | 2016-08-08 14:30 | NUR ---
Pt is drowsy, attempting to ambulate unassisted and combative with redirection. Pt does still appear drowsy and sedated however, she hits and slaps at staff when staff attempt to redirect pt to WC. Dr. Daniel sears. New order for 1:1 sitter, UA, and hold all psychotropic medications until pt is not sedated.
[2016-08-08 16:15] VITALS: BP 153/84
[2016-08-08] MEDS: ACETAMINOPHEN 325 MG TABLET PO PRN (19:39)
--- NOTE | 2016-08-08 19:40 | NUR ---
Pt c/o pain all over and also c/o "tooth ache". PRN Tylenol administered at this time as ordered.
[2016-08-08] MEDS: MELATONIN 3 MG TABLET PO SCH (21:00)
[2016-08-08] MEDS: traZODone 100 MG TABLET. PO SCH (21:00)
[2016-08-08] MEDS: MIRTAZAPINE 15 MG TABLET PO SCH (21:00)
--- NOTE | 2016-08-08 22:09 | NUR ---
HS meds held this shift d/t pt sedation.
--- NOTE | 2016-08-08 22:14 | PDOC ---
Exam Yaya Demential Exam: Yaya Note: Please also refer to the separate dictated note~for this date of service dictated separately.~Patient seen individually. Discussed the patient with Nursing staff reviewed the chart.~Reviewed interim history and current functioning. Reviewed vital signs,~Labs/ Radiology~and current medications noted below. Continue current treatment with the changes noted in the dictated addendum note Assessment: Vital Signs: Vital Signs Date Time Temp Pulse Resp B/P Pulse Ox O2 Delivery O2 Flow Rate FiO2 08/08/16 16:15 74 19 153/84 92.0 08/08/16 13:37 93 08/07/16 15:27 98.2 Room Air I&O Intake and Output 08/08/16 07:00 Intake Total 720 ml Balance 720 ml Intake Oral 720 ml Labs: Laboratory Tests Test 08/08/16 07:45 White Blood Count 17.2x10^3/uL (4.0-11.0) H Red Blood Count 3.77x10^6/uL (3.50-5.40) Hemoglobin 11.2g/dL (12.0-15.5) L Hematocrit 34.1% (36.0-47.0) L Mean Corpuscular Volume 90fL (79-100) Mean Corpuscular Hemoglobin 30pg (25-35) Mean Corpuscular Hemoglobin Concent 33g/dL (31-37) Red Cell Distribution Width 14.8% (11.5-14.5) H Platelet Count 461x10^3/uL (140-400) H Neutrophils (%) (Auto) 75% (31-73) H Lymphocytes (%) (Auto) 15% (24-48) L Monocytes (%) (Auto) 10% (0-9) H Eosinophils (%) (Auto) 0% (0-3) Basophils (%) (Auto) 0% (0-3) Neutrophils # (Auto) 12.8x10^3uL (1.8-7.7) H Lymphocytes # (Auto) 2.5x10^3/uL (1.0-4.8) Monocytes # (Auto) 1.7x10^3/uL (0.0-1.1) H Eosinophils # (Auto) 0.1x10^3/uL (0.0-0.7) Basophils # (Auto) 0.1x10^3/uL (0.0-0.2) Segmented Neutrophils % 72% (35-66) H Band Neutrophils % 1% (0-9) Lymphocytes % 19% (24-48) L Monocytes % 8% (0-10) Eosinophils % 0% (0-5) Basophils % 0% (0-3) Platelet Estimate Increased (ADEQUATE) Sodium Level 140mmol/L (136-145) Potassium Level 4.1mmol/L (3.5-5.1) Chloride Level 105mmol/L (98-107) Carbon Dioxide Level 26mmol/L (21-32) Anion Gap 9 (6-14) Blood Urea Nitrogen 19mg/dL (7-20) Creatinine 0.9mg/dL (0.6-1.0) Estimated GFR (Cockcroft-Gault) 61.7 BUN/Creatinine Ratio 21 (6-20) H Glucose Level 108mg/dL (70-99) H Calcium Level 8.4mg/dL (8.5-10.1) L Total Bilirubin 0.3mg/dL (0.2-1.0) Aspartate Amino Transferase (AST) 15U/L (15-37) Alanine Aminotransferase (ALT) 19U/L (14-59) Alkaline Phosphatase 79U/L (46-116) Total Protein 7.0g/dL (6.4-8.2) Albumin 2.8g/dL (3.4-5.0) L Albumin/Globulin Ratio 0.7 (1.0-1.7) L Current Medications: Meds: Current Medications Diphenhydramine HCl (Benadryl) 25 mg Q6HRS PO ; Start 07/01/16 at 18:00; Stop at 18:00; Status DC Hydroxyzine HCl (Atarax) 25 mg PRN Q6HRS PRN PO ITCHING Last administered on 01:19; Start 07/01/16 at 15:15; Stop 07/06/16 at 04:21; Status DC Lisinopril (Prinivil) 20 mg DAILY PO Last administered on 08/07/16 08:45; Start 07/02/16 at 09:00 Lorazepam (Ativan) 0.5 mg PRN Q4HRS PRN PO ANXIETY / AGITATION Last administered on 07/02/16 21:07; Start 07/01/16 at 15:15; Stop 07/02/16 at 21:44 ; Status DC Nicotine (Nicoderm Cq 21mg) 1 patch DAILY TD Last administered on 08/07/16 08: 46; Start 07/02/16 at 09:00 Lorazepam (Ativan) 0.5 mg PRN Q4HRS PRN IV ANXIETY / AGITATION; Start 07/01/16 at 15:15; Stop 07/01/16 at 19:14; Status DC Diphenhydramine HCl (Benadryl) 25 mg PRN Q6HRS PRN IVP ITCHING; Start 07/01/16 at 15:15; Stop 07/01/16 at 19:14; Status DC Haloperidol Lactate (Haldol) 5 mg PRN Q6HRS PRN IM AGITATION; Start 07/01/16 at 15:15; Stop 07/01/16 at 19:14; Status DC Diphenhydramine HCl (Benadryl) 25 mg PRN Q6HRS PRN PO ITCHING Last administered on 07/01/16 20:56; Start 07/01/16 at 18:00 Acetaminophen/ Hydrocodone Bitart (Lortab 5/325) 1 tab PRN BID PRN PO PAIN Last administered on 08/06/16 13:12; Start 07/02/16 at 21:45 Olanzapine (Zyprexa Zydis) 2.5 mg PRN Q2HR PRN PO PSYCHOSIS Last administered on 08/07/16 15:54; Start 07/02/16 at 21:45 Mirtazapine (Remeron) 15 mg QHS PO Last administered on 08/07/16 19:02; Start 07/03/16 at 21:00 Citalopram Hydrobromide (Celexa) 10 mg DAILY PO Last administered on 08/07/16 08:45; Start 07/03/16 at 09:00 Risperidone (Risperdal) 0.25 mg BID PO Last administered on 07/10/16 08:54; Start 07/03/16 at 21:00; Stop 07/10/16 at 15:18; Status DC Docusate Calcium (Surfak) 240 mg DAILY PO Last administered on 08/06/16 07:54 ; Start 07/04/16 at 21:00 Magnesium Hydroxide (Milk Of Magnesia) 2,400 mg PRN QHS PRN PO CONSTIPATION; Start 07/04/16 at 18:15 Trazodone HCl (Desyrel) 50 mg QHS PO Last administered on 07/14/16 20:10; Start 07/05/16 at 21:00; Stop 07/15/16 at 13:52; Status DC Trazodone HCl (Desyrel) 50 mg PRN QHS PRN PO INSOMNIA Last administered on 21:27; Start 07/05/16 at 20:45; Stop 07/15/16 at 13:52; Status DC Hydroxyzine HCl (Atarax) 50 mg PRN Q2HR PRN PO Psychosis Last administered on 15:54; Start 07/06/16 at 04:30 Fentanyl (Duragesic 12mcg/ Hr) 1 patch Q3DAYS TD Last administered on 08:49; Start 07/08/16 at 18:30 Risperidone (Risperdal) 0.25 mg TID PO Last administered on 07/24/16 13:20; Start 07/10/16 at 21:00; Stop 07/24/16 at 18:29; Status DC Buspirone HCl (Buspar) 5 mg TID PO Last administered on 07/13/16 12:28; Start 07/10/16 at 21:00; Stop 07/13/16 at 15:32; Status DC Buspirone HCl (Buspar) 10 mg BID PO Last administered on 07/27/16 09:32; Start 07/13/16 at 21:00; Stop 07/27/16 at 18:29; Status DC Divalproex Sodium (Depakote Sprinkles) 125 mg BID PO Last administered on 07:46; Start 07/13/16 at 21:00; Stop 07/19/16 at 11:49; Status DC Vitamin D (Vitamin D3) 2,000 unit BIDPCLD PO Last administered on 08/07/16 18: 17; Start 07/14/16 at 12:30 Trazodone HCl (Desyrel) 100 mg QHS PO Last administered on 08/07/16 19:02; Start 07/15/16 at 21:00 Trazodone HCl (Desyrel) 100 mg PRN QHS PO ; Start 07/15/16 at 13:45; Stop at 23:01; Status DC Trazodone HCl (Desyrel) 100 mg PRN QHS PRN PO INSOMNIA Last administered on 00:53; Start 07/15/16 at 23:00 Quetiapine Fumarate (SEROquel) 50 mg 1X ONCE PO Last administered on 07/16/16 00:44; Start 07/16/16 at 00:30; Stop 07/16/16 at 00:31; Status DC Temazepam (Restoril) 30 mg PRN QHS PRN PO INSOMNIA Last administered on 19:04; Start 07/16/16 at 18:30 Divalproex Sodium (Depakote Sprinkles) 250 mg BID PO Last administered on 12:20; Start 07/19/16 at 21:00; Stop 07/22/16 at 18:23; Status DC Acetaminophen (Tylenol) 650 mg PRN Q6HRS PRN PO PAIN / TEMP Last administered on 08/08/16 19:39; Start 07/22/16 at 15:30 Divalproex Sodium (Depakote Sprinkles) 375 mg BID PO Last administered on 08:58; Start 07/22/16 at 21:00; Stop 08/04/16 at 17:56; Status DC Melatonin 6 mg QHS PO Last administered on 08/07/16 19:03; Start 07/22/16 at 21:00 Risperidone (Risperdal) 0.25 mg QID PO Last administered on 08/07/16 19:03; Start 07/24/16 at 21:00 Lorazepam (Ativan) 1 mg DAILY IM ; Start 07/27/16 at 09:00; Stop 07/27/16 at 09: 00; Status DC Lorazepam (Ativan) 1 mg 14 IM Last administered on 07/28/16 13:47; Start 07/26 at 15:00; Stop 07/29/16 at 14:13; Status DC Haloperidol Lactate (Haldol) 5 mg 1X ONCE IM Last administered on 07/27/16 16 :15; Start 07/27/16 at 16:15; Stop 07/27/16 at 16:16; Status DC Haloperidol Lactate (Haldol) 5 mg 14 IM Last administered on 07/28/16 13:46; Start 07/28/16 at 14:00; Stop 07/29/16 at 14:13; Status DC Buspirone HCl (Buspar) 10 mg TID PO Last administered on 08/04/16 08:58; Start 07/27/16 at 21:00; Stop 08/04/16 at 17:56; Status DC Trazodone HCl (Desyrel) 12.5 mg TIDWMEALS PO Last administered on 08/03/16 11: 58; Start 07/28/16 at 08:00; Stop 08/03/16 at 13:40; Status DC Fosfomycin Tromethamine (Monurol) 3 gm 1X ONCE PO Last administered on 06:27; Start 07/29/16 at 06:30; Stop 07/29/16 at 06:32; Status DC Trazodone HCl (Desyrel) 25 mg TIDWMEALS PO Last administered on 08/06/16 07:54 ; Start 08/03/16 at 17:00; Stop 08/06/16 at 11:24; Status DC Buspirone HCl (Buspar) 10 mg QID PO Last administered on 08/07/16 19:02; Start 08/04/16 at 21:00 Haloperidol Lactate (Haldol) 5 mg AFTRNOON IM Last administered on 08/07/16 16 :55; Start 08/05/16 at 13:15 Lorazepam (Ativan) 0.5 mg AFTRNOON IM Last administered on 08/07/16 16:55; Start 08/05/16 at 13:15 Oxcarbazepine (Trileptal) 300 mg BID PO Last administered on 08/07/16 19:03; Start 08/06/16 at 21:00 Trazodone HCl (Desyrel) 50 mg BID PO Last administered on 08/07/16 19:03; Start 08/06/16 at 21:00 Trazodone HCl (Desyrel) 50 mg 14 PO Last administered on 08/07/16t 13:20; Start 08/06/16 at 14:00 Active Scripts Active Lisinopril 20 Mg Tablet 1 Tab PO DAILY NICODERM CQ 21mg (Nicotine) 1 Each Patch.td24 1 Patch TP DAILY Lorazepam 0.5 Mg Tablet 1 Tab PO Q4HRS PRN Hydroxyzine Hcl 25 Mg Tablet 1 Tab PO Q6HRS PRN Benadryl (Diphenhydramine Hcl) 25 Mg Capsule 1 Cap PO Q6HRS Diagnosis: Problems: (1) Encounter for psychological evaluation (2) Anxiety disorder (3) Impulse control disorder (4) Dementia, vascular, with delusions (5) Dementia, vascular, with depression (6) Dementia in Alzheimer's disease with delusions (7) Dementia in Alzheimer's disease with depression CAITLYN BHATT MD Aug 08, 2016 22:14
--- NOTE | 2016-08-08 23:16 | NUR ---
Behavior Intervention Response and Plan: BIRP Note: Behavior: Assumed Care of patient, patient located in Day Room at shift change. Patient exhibited the following behavior Calm, Disorganized, Somatic. Brief assessment on rounds of vital signs, medication needs, lab studies, and pain. Treatment plan problems 1 and 2. Intervention: Patient assessed and the following interventions initiated safety checks 15 Minute Checks Cognitive Assessment , Head to toe Assessment , Medications. Response: After interactions and interventions patient responded in the following manner, Calm , Cooperative ,Sleeping. Continue to assess behaviors and condition will continue to monitor throughout the shift as needed. 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 Continue to assess patient for changes in above assessment. Monitor for medication needs, pain, and safety concerns. Hourly rounding performed to ensure safe environment.
[2016-08-09 04:20] LABS: CLARITY,URINE CLEAR; COLOR,URINE YELLOW
[2016-08-09 04:21] LABS: BACTERIA,URINE FEW /HPF (0-FEW); BILIRUBIN,URINE NEG (NEG); GLUCOSE,URINE NEG (NEG); NITRITE,URINE NEG (NEG); SQUAMOUS EPITHELIAL CELL,UR FEW /LPF; UROBILINOGEN,URINE 0.2 mg/dL (0.2 mg/dL); WBC,URINE 0 /HPF (0-4)
[2016-08-09 08:01] VITALS: BP 145/78
--- NOTE | 2016-08-09 09:46 | NUR ---
Behavior Intervention Response and Plan: BIRP Note: Behavior: Assumed Care of patient, patient located in patient room at shift change. Patient exhibited the following behavior restless, agitated. Brief assessment on rounds of vital signs, medication needs, lab studies, and pain. Treatment plan problems Dementia with BD, Altered Thought Process and Fall Risk. Intervention: Patient assessed and the following interventions initiated safety checks 15 Minute Checks Cognitive Assessment , Head to toe Assessment , Medications. Response: After interactions and interventions patient responded in the following manner, confused, disorganized, and restless. Continue to assess behaviors and condition will continue to monitor throughout the shift as needed. 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 Continue to assess patient for changes in above assessment. Monitor for medication needs, pain, and safety concerns. Hourly rounding performed to ensure safe environment.
[2016-08-09] MEDS: busPIRone 10 MG TABLET. PO SCH ×4 (10:28→19:37)
[2016-08-09] MEDS: traZODone 50 MG TABLET. PO SCH ×3 (10:28→19:38)
[2016-08-09] MEDS: CITALOPRAM 10 MG TABLET. PO SCH (10:28)
[2016-08-09] MEDS: LISINOPRIL 20 MG TABLET PO SCH (10:30)
[2016-08-09] MEDS: CHOLECALCIFEROL (VITAMIN D3) 1,000 UNIT TABLET PO SCH ×2 (10:30→16:55)
[2016-08-09] MEDS: risperiDONE 0.25 MG TABLET. PO SCH ×4 (10:30→19:37)
[2016-08-09] MEDS: DOCUSATE CALCIUM 240 MG CAPSULE PO SCH (10:31)
[2016-08-09] MEDS: NICOTINE 21MG PATCH. TD SCH (10:31)
--- NOTE | 2016-08-09 11:24 | NUR ---
AM medication given crushed in boost and ice cream shake. Pt drank 3/4 of her shake.
[2016-08-09] MEDS: HALOPERIDOL LACT 5 MG/ML VIAL. IM SCH (13:00)
[2016-08-09] MEDS: LORazepam 2 MG/ML VIAL IM SCH (13:00)
[2016-08-09] MEDS: ACETAMINOPHEN 325 MG TABLET PO PRN (16:38)
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
[2016-08-09 17:36] VITALS: BP 145/90
[2016-08-09] MEDS: MELATONIN 3 MG TABLET PO SCH (19:37)
[2016-08-09] MEDS: traZODone 100 MG TABLET. PO SCH (19:37)
[2016-08-09] MEDS: MIRTAZAPINE 15 MG TABLET PO SCH (19:38)
[2016-08-09] MEDS: TEMAZEPAM 15 MG CAPSULE PO PRN (21:23)
--- NOTE | 2016-08-10 00:08 | NUR ---
Behavior Intervention Response and Plan: BIRP Note: Behavior: Assumed Care of patient, patient located in Hallway at shift change. Patient exhibited the following behavior Calm, Interactive, Cooperative. Brief assessment on rounds of vital signs, medication needs, lab studies, and pain. Treatment plan problems 1-2. Intervention: Patient assessed and the following interventions initiated safety checks 15 Minute Checks Cognitive Assessment , Head to toe Assessment , Medications. Response: After interactions and interventions patient responded in the following manner, Calm , Interactive ,Cooperative. Continue to assess behaviors and condition will continue to monitor throughout the shift as needed. Plan: Continue to monitor Master Treatment Plan for patient's progress toward short term goals of Decreased Anxiety, Improved Mood, care home goals to return to previous living setting vs placement. Continue to assess patient for changes in above assessment. Monitor for medication needs, pain, and safety concerns. Hourly rounding performed to ensure safe environment.
[2016-08-10] MEDS: CITALOPRAM 10 MG TABLET. PO SCH (09:43)
[2016-08-10] MEDS: DOCUSATE CALCIUM 240 MG CAPSULE PO SCH (09:43)
[2016-08-10] MEDS: busPIRone 10 MG TABLET. PO SCH ×5 (09:44→19:50)
[2016-08-10] MEDS: risperiDONE 0.25 MG TABLET. PO SCH ×5 (09:44→19:50)
[2016-08-10] MEDS: traZODone 50 MG TABLET. PO SCH ×3 (09:44→19:21)
[2016-08-10] MEDS: LISINOPRIL 20 MG TABLET PO SCH (09:44)
[2016-08-10] MEDS: NICOTINE 21MG PATCH. TD SCH (09:45)
[2016-08-10] MEDS: CHOLECALCIFEROL (VITAMIN D3) 1,000 UNIT TABLET PO SCH ×2 (12:30→19:22)
--- NOTE | 2016-08-10 12:30 | PN ---
DATE: 08/07/2016 PSYCHIATRIC PROGRESS NOTE This is a late entry of 08/07/2016 covers elements not covered in my initial note. The patient remains extremely agitated, labile and received IM Haldol, Ativan and scheduled at 9:00 a.m. At 4:00 p.m., she was looking for Edgar, looking for her purse, received Zyprexa Zydis, agitated at 5:00 p.m. pushing chairs into the office doors, aggressive, disruptive. REVIEW OF SYSTEMS: No CV, , pulmonary, eye, ENT system symptoms on review. Reliability poor. MENTAL STATUS EXAM: Oriented to herself. Insight, judgment, recent and remote memory, attention, concentration, fund of knowledge poor, consistent with her diagnosis as mentioned in my initial note. PLAN: Continue current psychotropics Trileptal added as a mood stabilizer. Adjust further as clinically indicated. CAITLYN BHATT MD DR: ALICIA/shanon JOB#: [id number] / [id number]
--- NOTE | 2016-08-10 12:32 | PN ---
DATE: 08/08/2016 This is a late entry, 08/08/2016, covers the elements that are not covered in my initial note. SUBJECTIVE: The patient has been intermittently sedated, but when not sedated, she is extremely agitated and disruptive. Evening when I met with her, she was feeding herself, confused. We are holding all her psychotropics whenever she is sedated. REVIEW OF SYSTEMS: No CV, , pulmonary, eye, or ENT system symptoms on review. Reliability poor. MENTAL STATUS EXAM: Oriented to herself. Insight, judgment, recent and remote memory, attention, concentration, and fund of knowledge are poor consistent with her diagnosis mentioned in my initial note. PLAN: Continue current psychotropics, hold if sedated. Adjust the Trileptal further as clinically indicated. MAN Quinten BHATT MD DR: ALICIA/shanon JOB#: [id number] / [id number]
--- NOTE | 2016-08-10 13:16 | NUR ---
Behavior Intervention Response and Plan: BIRP Note: Behavior: Assumed Care of patient, patient located in patient room at shift change. Patient exhibited the following behavior calm, cooperative, compliant and confused. Brief assessment on rounds of vital signs, medication needs, lab studies, and pain. Treatment plan problems Dementia with BD, Altered Thought Process and Fall Risk. Intervention: Patient assessed and the following interventions initiated safety checks 15 Minute Checks Cognitive Assessment , Head to toe Assessment , Medications. Response: After interactions and interventions patient responded in the following manner, confused, disorganized. Continue to assess behaviors and condition will continue to monitor throughout the shift as needed. 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 Continue to assess patient for changes in above assessment. Monitor for medication needs, pain, and safety concerns. Hourly rounding performed to ensure safe environment.
[2016-08-10] MEDS: fentaNYL 12MCG/HR 1 PATCH PATCH TD SCH (13:50)
[2016-08-10 15:39] VITALS: BP 123/69
[2016-08-10] MEDS: HALOPERIDOL LACT 5 MG/ML VIAL. IM SCH (15:48)
[2016-08-10] MEDS: LORazepam 2 MG/ML VIAL IM SCH (15:50)
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
--- NOTE | 2016-08-10 17:20 | NUR ---
Dr. Sanchez here for rounds. Discussed scheduled IM injections given at 1600 instead of 1300 d/t behavior and possible sedation. Dr. Sanchez would like 1700 dose of Buspar and Risperdal given at HS.
[2016-08-10] MEDS: MELATONIN 3 MG TABLET PO SCH (19:20)
[2016-08-10] MEDS: MIRTAZAPINE 15 MG TABLET PO SCH (19:20)
[2016-08-10] MEDS: traZODone 100 MG TABLET. PO SCH (19:21)
--- NOTE | 2016-08-10 20:33 | PDOC ---
Exam Yaya Demential Exam: Yaya Note: Please also refer to the separate dictated note~for this date of service dictated separately.~Patient seen individually. Discussed the patient with Nursing staff reviewed the chart.~Reviewed interim history and current functioning. Reviewed vital signs,~Labs/ Radiology~and current medications noted below. Continue current treatment with the changes noted in the dictated addendum note Assessment: Vital Signs: Vital Signs Date Time Temp Pulse Resp B/P Pulse Ox O2 Delivery O2 Flow Rate FiO2 08/10/16 19:00 Room Air 08/10/16 15:39 97.7 68 18 123/69 97 08/08/16 16:15 92.0 I&O Intake and Output 08/10/16 07:00 Intake Total 720 ml Balance 720 ml Intake Oral 720 ml # Voids 1 # Bowel Movements 2 Current Medications: Meds: Current Medications Diphenhydramine HCl (Benadryl) 25 mg Q6HRS PO ; Start 07/01/16 at 18:00; Stop at 18:00; Status DC Hydroxyzine HCl (Atarax) 25 mg PRN Q6HRS PRN PO ITCHING Last administered on 01:19; Start 07/01/16 at 15:15; Stop 07/06/16 at 04:21; Status DC Lisinopril (Prinivil) 20 mg DAILY PO Last administered on 08/10/16 09:44; Start 07/02/16 at 09:00 Lorazepam (Ativan) 0.5 mg PRN Q4HRS PRN PO ANXIETY / AGITATION Last administered on 07/02/16 21:07; Start 07/01/16 at 15:15; Stop 07/02/16 at 21:44 ; Status DC Nicotine (Nicoderm Cq 21mg) 1 patch DAILY TD Last administered on 08/10/16 09: 45; Start 07/02/16 at 09:00 Lorazepam (Ativan) 0.5 mg PRN Q4HRS PRN IV ANXIETY / AGITATION; Start 07/01/16 at 15:15; Stop 07/01/16 at 19:14; Status DC Diphenhydramine HCl (Benadryl) 25 mg PRN Q6HRS PRN IVP ITCHING; Start 07/01/16 at 15:15; Stop 07/01/16 at 19:14; Status DC Haloperidol Lactate (Haldol) 5 mg PRN Q6HRS PRN IM AGITATION; Start 07/01/16 at 15:15; Stop 07/01/16 at 19:14; Status DC Diphenhydramine HCl (Benadryl) 25 mg PRN Q6HRS PRN PO ITCHING Last administered on 07/01/16 20:56; Start 07/01/16 at 18:00 Acetaminophen/ Hydrocodone Bitart (Lortab 5/325) 1 tab PRN BID PRN PO PAIN Last administered on 08/06/16 13:12; Start 07/02/16 at 21:45 Olanzapine (Zyprexa Zydis) 2.5 mg PRN Q2HR PRN PO PSYCHOSIS Last administered on 08/07/16 15:54; Start 07/02/16 at 21:45 Mirtazapine (Remeron) 15 mg QHS PO Last administered on 08/10/16 19:20; Start 07/03/16 at 21:00 Citalopram Hydrobromide (Celexa) 10 mg DAILY PO Last administered on 08/10/16 09:43; Start 07/03/16 at 09:00 Risperidone (Risperdal) 0.25 mg BID PO Last administered on 07/10/16 08:54; Start 07/03/16 at 21:00; Stop 07/10/16 at 15:18; Status DC Docusate Calcium (Surfak) 240 mg DAILY PO Last administered on 08/10/16 09:43; Start 07/04/16 at 21:00 Magnesium Hydroxide (Milk Of Magnesia) 2,400 mg PRN QHS PRN PO CONSTIPATION; Start 07/04/16 at 18:15 Trazodone HCl (Desyrel) 50 mg QHS PO Last administered on 07/14/16 20:10; Start 07/05/16 at 21:00; Stop 07/15/16 at 13:52; Status DC Trazodone HCl (Desyrel) 50 mg PRN QHS PRN PO INSOMNIA Last administered on 21:27; Start 07/05/16 at 20:45; Stop 07/15/16 at 13:52; Status DC Hydroxyzine HCl (Atarax) 50 mg PRN Q2HR PRN PO Psychosis Last administered on 15:54; Start 07/06/16 at 04:30 Fentanyl (Duragesic 12mcg/ Hr) 1 patch Q3DAYS TD Last administered on 08/10/16 13:50; Start 07/08/16 at 18:30 Risperidone (Risperdal) 0.25 mg TID PO Last administered on 07/24/16 13:20; Start 07/10/16 at 21:00; Stop 07/24/16 at 18:29; Status DC Buspirone HCl (Buspar) 5 mg TID PO Last administered on 07/13/16 12:28; Start 07/10/16 at 21:00; Stop 07/13/16 at 15:32; Status DC Buspirone HCl (Buspar) 10 mg BID PO Last administered on 07/27/16 09:32; Start 07/13/16 at 21:00; Stop 07/27/16 at 18:29; Status DC Divalproex Sodium (Depakote Sprinkles) 125 mg BID PO Last administered on 07:46; Start 07/13/16 at 21:00; Stop 07/19/16 at 11:49; Status DC Vitamin D (Vitamin D3) 2,000 unit BIDPCLD PO Last administered on 08/10/16 19: 22; Start 07/14/16 at 12:30 Trazodone HCl (Desyrel) 100 mg QHS PO Last administered on 08/10/16 19:21; Start 07/15/16 at 21:00 Trazodone HCl (Desyrel) 100 mg PRN QHS PO ; Start 07/15/16 at 13:45; Stop at 23:01; Status DC Trazodone HCl (Desyrel) 100 mg PRN QHS PRN PO INSOMNIA Last administered on 00:53; Start 07/15/16 at 23:00 Quetiapine Fumarate (SEROquel) 50 mg 1X ONCE PO Last administered on 07/16/16 00:44; Start 07/16/16 at 00:30; Stop 07/16/16 at 00:31; Status DC Temazepam (Restoril) 30 mg PRN QHS PRN PO INSOMNIA Last administered on 19:04; Start 07/16/16 at 18:30; Stop 08/09/16 at 18:24; Status DC Divalproex Sodium (Depakote Sprinkles) 250 mg BID PO Last administered on 12:20; Start 07/19/16 at 21:00; Stop 07/22/16 at 18:23; Status DC Acetaminophen (Tylenol) 650 mg PRN Q6HRS PRN PO PAIN / TEMP Last administered on 08/09/16 16:38; Start 07/22/16 at 15:30 Divalproex Sodium (Depakote Sprinkles) 375 mg BID PO Last administered on 08:58; Start 07/22/16 at 21:00; Stop 08/04/16 at 17:56; Status DC Melatonin 6 mg QHS PO Last administered on 08/10/16 19:20; Start 07/22/16 at 21 :00 Risperidone (Risperdal) 0.25 mg QID PO Last administered on 08/10/16 19:50; Start 07/24/16 at 21:00 Lorazepam (Ativan) 1 mg DAILY IM ; Start 07/27/16 at 09:00; Stop 07/27/16 at 09: 00; Status DC Lorazepam (Ativan) 1 mg 14 IM Last administered on 07/28/16 13:47; Start 07/26 at 15:00; Stop 07/29/16 at 14:13; Status DC Haloperidol Lactate (Haldol) 5 mg 1X ONCE IM Last administered on 07/27/16 16 :15; Start 07/27/16 at 16:15; Stop 07/27/16 at 16:16; Status DC Haloperidol Lactate (Haldol) 5 mg 14 IM Last administered on 07/28/16 13:46; Start 07/28/16 at 14:00; Stop 07/29/16 at 14:13; Status DC Buspirone HCl (Buspar) 10 mg TID PO Last administered on 08/04/16 08:58; Start 07/27/16 at 21:00; Stop 08/04/16 at 17:56; Status DC Trazodone HCl (Desyrel) 12.5 mg TIDWMEALS PO Last administered on 08/03/16 11: 58; Start 07/28/16 at 08:00; Stop 08/03/16 at 13:40; Status DC Fosfomycin Tromethamine (Monurol) 3 gm 1X ONCE PO Last administered on 06:27; Start 07/29/16 at 06:30; Stop 07/29/16 at 06:32; Status DC Trazodone HCl (Desyrel) 25 mg TIDWMEALS PO Last administered on 08/06/16 07:54 ; Start 08/03/16 at 17:00; Stop 08/06/16 at 11:24; Status DC Buspirone HCl (Buspar) 10 mg QID PO Last administered on 08/10/16 19:50; Start 08/04/16 at 21:00 Haloperidol Lactate (Haldol) 5 mg AFTRNOON IM Last administered on 08/10/16 15: 48; Start 08/05/16 at 13:15 Lorazepam (Ativan) 0.5 mg AFTRNOON IM Last administered on 08/10/16 15:50; Start 08/05/16 at 13:15 Oxcarbazepine (Trileptal) 300 mg BID PO Last administered on 08/10/16 19:21; Start 08/06/16 at 21:00 Trazodone HCl (Desyrel) 50 mg BID PO Last administered on 08/10/16 19:21; Start 08/06/16 at 21:00 Trazodone HCl (Desyrel) 50 mg 14 PO Last administered on 08/10/16 13:49; Start 08/06/16 at 14:00 Temazepam (Restoril) 15 mg PRN QHS PRN PO INSOMNIA; Start 08/09/16 at 18:30 Active Scripts Active Lisinopril 20 Mg Tablet 1 Tab PO DAILY NICODERM CQ 21mg (Nicotine) 1 Each Patch.td24 1 Patch TP DAILY Lorazepam 0.5 Mg Tablet 1 Tab PO Q4HRS PRN Hydroxyzine Hcl 25 Mg Tablet 1 Tab PO Q6HRS PRN Benadryl (Diphenhydramine Hcl) 25 Mg Capsule 1 Cap PO Q6HRS Diagnosis: Problems: (1) Encounter for psychological evaluation (2) Anxiety disorder (3) Impulse control disorder (4) Dementia, vascular, with delusions (5) Dementia, vascular, with depression (6) Dementia in Alzheimer's disease with delusions (7) Dementia in Alzheimer's disease with depression CAITLYN BHATT MD August 10, 2016 20:33
--- NOTE | 2016-08-10 21:45 | PN ---
DATE: 08/09/2016 PSYCHIATRIC PROGRESS NOTE This is late entry of 08/09/2016. SUBJECTIVE: The patient was seen on rounds on the evening of 08/09/2016, discussed with nursing staff, reviewed the chart. Temperature 97.8, pulse 68, respirations 20 and BP 134/68. The patient did better the previous evening, but was cursing at times. She had a good day in the morning of 08/09/2016, one-on-one status was therefore discontinued, attempting to help staff. Her son visited then she was insistent on leaving with Dc and thereafter with her other son, Erasmo and when this did not happen, she was cursing, labile, agitated, confused. No IM Haldol, Ativan given on 08/09/2016 as she is already somewhat sedated. REVIEW OF SYSTEMS: No CV, , pulmonary, eye, ENT system symptoms on review. Reliability poor. MENTAL STATUS EXAMINATION: Oriented to herself. Insight, judgment, recent and remote memory, attention, concentration, fund of knowledge poor, consistent with her diagnoses. IMPRESSION: Major neurocognitive disorder, Alzheimer, vascular with depression, delusions and behavioral disturbance. Rest unchanged. PLAN: Continue current psychotropics, hydroxyzine p.r.n., Benadryl p.r.n., Celexa 10 mg a day, Remeron 15 at bedtime, Zyprexa p.r.n., trazodone 100 at bedtime, may repeat x 1 p.r.n., Risperdal 0.25 mg 4 times a day, BuSpar 10 four times a day, reduce Restoril from 30 mg at bedtime p.r.n. to 15 at bedtime p.r.n., melatonin 6 bedtime, trazodone scheduled 50 t.i.d. and the IM scheduled Haldol and Ativan, Trileptal 300 b.i.d. Adjust further as clinically indicated. MAN Quinten BHATT MD DR: ALICIA/shanon JOB#: [id number] / [id number]
[2016-08-11] MEDS: TEMAZEPAM 15 MG CAPSULE PO PRN ×2 (02:03→19:21)
--- NOTE | 2016-08-11 02:30 | NUR ---
Nursing Note: Patient woke up and began yelling at staff "to get the fuck out" of her house. Pt threatened to call the police and and immigration to have everyone removed. Pt highly agitated. Unable to redirect. Attempted tot give pt PRN pt refused. Will attempt again to administer PRN.
--- NOTE | 2016-08-11 02:56 | NUR ---
Behavior Intervention Response and Plan: BIRP Note: Behavior: Assumed Care of patient, patient located in Day Room at shift change. Patient exhibited the following behavior Restless, Compliant, Disorganized. Brief assessment on rounds of vital signs, medication needs, lab studies, and pain. Treatment plan problems Dementia with Bd, Altered Thought Process and Fall Risk. Intervention: Patient assessed and the following interventions initiated safety checks 15 Minute Checks Cognitive Assessment , Head to toe Assessment , Medications. Response: After interactions and interventions patient responded in the following manner, Disorganized , Compulsive ,Agitated. Continue to assess behaviors and condition will continue to monitor throughout the shift as needed. 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 Continue to assess patient for changes in above assessment. Monitor for medication needs, pain, and safety concerns. Hourly rounding performed to ensure safe environment.
[2016-08-11 06:21] VITALS: BP 105/57
[2016-08-11] MEDS: NICOTINE 21MG PATCH. TD SCH (09:47)
[2016-08-11] MEDS: busPIRone 10 MG TABLET. PO SCH ×5 (09:47→19:21)
[2016-08-11] MEDS: risperiDONE 0.25 MG TABLET. PO SCH ×5 (09:48→19:21)
[2016-08-11] MEDS: DOCUSATE CALCIUM 240 MG CAPSULE PO SCH (09:48)
[2016-08-11] MEDS: CITALOPRAM 10 MG TABLET. PO SCH (09:48)
[2016-08-11] MEDS: LISINOPRIL 20 MG TABLET PO SCH (09:49)
[2016-08-11] MEDS: traZODone 50 MG TABLET. PO SCH ×3 (09:50→19:21)
--- NOTE | 2016-08-11 11:24 | NUR ---
Group Note [facility] Group Type [place] Start Time: 10:45 End Time: 11:10 Problem: Anxiety Purpose: Stimulate Memory, express feelings, Level of Participation: High Behaviors or Symptoms Observed: Pts talked about their mothers and the positive qualities Interventions: Reminiscence Response: Each pt wrote the qualities on a flower petal as they shared with the group. Plan: Group Participation Additional Comments:
[2016-08-11] MEDS: CHOLECALCIFEROL (VITAMIN D3) 1,000 UNIT TABLET PO SCH ×3 (12:30→17:03)
--- NOTE | 2016-08-11 14:00 | NUR ---
Behavior Intervention Response and Plan: BIRP Note: Behavior: Assumed Care of patient, patient located in Hallway at shift change. Patient exhibited the following behavior Interactive, Disorganized, Compliant. Brief assessment on rounds of vital signs, medication needs, lab studies, and pain. Treatment plan problems . Intervention: Patient assessed and the following interventions initiated safety checks 15 Minute Checks Call amaya in reach , Medications , Head to toe Assessment. Response: After interactions and interventions patient responded in the following manner, Restless , Interactive ,Non-compliant. Continue to assess behaviors and condition will continue to monitor throughout the shift as needed. Plan: Continue to monitor Master Treatment Plan for patient's progress toward short term goals of Decreased Agitation, Medication Compliance, shelter goals to return to previous living setting vs placement. Continue to assess patient for changes in above assessment. Monitor for medication needs, pain, and safety concerns. Hourly rounding performed to ensure safe environment.
[2016-08-11 15:49] VITALS: BP 145/78
--- NOTE | 2016-08-11 15:50 | NUR ---
SW unable to send out notes pt still on IM's... Pt is in need of placement.
[2016-08-11] MEDS: LORazepam 2 MG/ML VIAL IM SCH (17:01)
[2016-08-11] MEDS: HALOPERIDOL LACT 5 MG/ML VIAL. IM SCH (17:01)
[2016-08-11] MEDS: MIRTAZAPINE 15 MG TABLET PO SCH (19:21)
[2016-08-11] MEDS: MELATONIN 3 MG TABLET PO SCH (19:22)
[2016-08-11] MEDS: traZODone 100 MG TABLET. PO SCH (19:22)
--- NOTE | 2016-08-11 20:00 | NUR ---
Behavior Intervention Response and Plan: BIRP Note: Behavior: Assumed Care of patient, patient located in Day Room at shift change. Patient exhibited the following behavior Calm, Appropriate, Cooperative. Brief assessment on rounds of vital signs, medication needs, lab studies, and pain. Treatment plan problems: Dementia with BD, Altered Thought Process, and Fall Risk . Intervention: Patient assessed and the following interventions initiated safety checks 15 Minute Checks Cognitive Assessment , Head to toe Assessment , Medications, Oral Hydration, and Nutrition. Response: After interactions and interventions patient responded in the following manner, Calm , Cooperative ,Interactive, Appropriate. Continue to assess behaviors and condition will continue to monitor throughout the shift as needed. Plan: Continue to monitor Master Treatment Plan for patient's progress toward short term goals of Decreased Agitation, Decreased Anxiety, mcc goals to return to previous living setting vs placement. Continue to assess patient for changes in above assessment. Monitor for medication needs, pain, and safety concerns. Hourly rounding performed to ensure safe environment.
--- NOTE | 2016-08-11 21:07 | PDOC ---
Exam Yaya Demential Exam: Yaya Note: Please also refer to the separate dictated note~for this date of service dictated separately.~Patient seen individually. Discussed the patient with Nursing staff reviewed the chart.~Reviewed interim history and current functioning. Reviewed vital signs,~Labs/ Radiology~and current medications noted below. Continue current treatment with the changes noted in the dictated addendum note Assessment: Vital Signs: Vital Signs Date Time Temp Pulse Resp B/P Pulse Ox O2 Delivery O2 Flow Rate FiO2 08/11/16 15:49 97.5 74 20 145/78 97 08/10/16 19:00 Room Air 08/08/16 16:15 92.0 I&O Intake and Output 08/11/16 07:00 Intake Total 1200 ml Balance 1200 ml Intake Oral 1200 ml # Voids 1 Current Medications: Meds: Current Medications Diphenhydramine HCl (Benadryl) 25 mg Q6HRS PO ; Start 07/01/16 at 18:00; Stop at 18:00; Status DC Hydroxyzine HCl (Atarax) 25 mg PRN Q6HRS PRN PO ITCHING Last administered on 01:19; Start 07/01/16 at 15:15; Stop 07/06/16 at 04:21; Status DC Lisinopril (Prinivil) 20 mg DAILY PO Last administered on 08/11/16 09:49; Start 07/02/16 at 09:00 Lorazepam (Ativan) 0.5 mg PRN Q4HRS PRN PO ANXIETY / AGITATION Last administered on 07/02/16 21:07; Start 07/01/16 at 15:15; Stop 07/02/16 at 21:44 ; Status DC Nicotine (Nicoderm Cq 21mg) 1 patch DAILY TD Last administered on 08/11/16 09: 47; Start 07/02/16 at 09:00 Lorazepam (Ativan) 0.5 mg PRN Q4HRS PRN IV ANXIETY / AGITATION; Start 07/01/16 at 15:15; Stop 07/01/16 at 19:14; Status DC Diphenhydramine HCl (Benadryl) 25 mg PRN Q6HRS PRN IVP ITCHING; Start 07/01/16 at 15:15; Stop 07/01/16 at 19:14; Status DC Haloperidol Lactate (Haldol) 5 mg PRN Q6HRS PRN IM AGITATION; Start 07/01/16 at 15:15; Stop 07/01/16 at 19:14; Status DC Diphenhydramine HCl (Benadryl) 25 mg PRN Q6HRS PRN PO ITCHING Last administered on 07/01/16 20:56; Start 07/01/16 at 18:00 Acetaminophen/ Hydrocodone Bitart (Lortab 5/325) 1 tab PRN BID PRN PO PAIN Last administered on 08/06/16 13:12; Start 07/02/16 at 21:45 Olanzapine (Zyprexa Zydis) 2.5 mg PRN Q2HR PRN PO PSYCHOSIS Last administered on 08/07/16 15:54; Start 07/02/16 at 21:45 Mirtazapine (Remeron) 15 mg QHS PO Last administered on 08/11/16 19:21; Start 07/03/16 at 21:00 Citalopram Hydrobromide (Celexa) 10 mg DAILY PO Last administered on 08/11/16 09:48; Start 07/03/16 at 09:00 Risperidone (Risperdal) 0.25 mg BID PO Last administered on 07/10/16 08:54; Start 07/03/16 at 21:00; Stop 07/10/16 at 15:18; Status DC Docusate Calcium (Surfak) 240 mg DAILY PO Last administered on 08/11/16 09:48; Start 07/04/16 at 21:00 Magnesium Hydroxide (Milk Of Magnesia) 2,400 mg PRN QHS PRN PO CONSTIPATION; Start 07/04/16 at 18:15 Trazodone HCl (Desyrel) 50 mg QHS PO Last administered on 07/14/16 20:10; Start 07/05/16 at 21:00; Stop 07/15/16 at 13:52; Status DC Trazodone HCl (Desyrel) 50 mg PRN QHS PRN PO INSOMNIA Last administered on 21:27; Start 07/05/16 at 20:45; Stop 07/15/16 at 13:52; Status DC Hydroxyzine HCl (Atarax) 50 mg PRN Q2HR PRN PO Psychosis Last administered on 15:54; Start 07/06/16 at 04:30 Fentanyl (Duragesic 12mcg/ Hr) 1 patch Q3DAYS TD Last administered on 08/10/16 13:50; Start 07/08/16 at 18:30 Risperidone (Risperdal) 0.25 mg TID PO Last administered on 07/24/16 13:20; Start 07/10/16 at 21:00; Stop 07/24/16 at 18:29; Status DC Buspirone HCl (Buspar) 5 mg TID PO Last administered on 07/13/16 12:28; Start 07/10/16 at 21:00; Stop 07/13/16 at 15:32; Status DC Buspirone HCl (Buspar) 10 mg BID PO Last administered on 07/27/16 09:32; Start 07/13/16 at 21:00; Stop 07/27/16 at 18:29; Status DC Divalproex Sodium (Depakote Sprinkles) 125 mg BID PO Last administered on 07:46; Start 07/13/16 at 21:00; Stop 07/19/16 at 11:49; Status DC Vitamin D (Vitamin D3) 2,000 unit BIDPCLD PO Last administered on 08/11/16 12: 30; Start 07/14/16 at 12:30 Trazodone HCl (Desyrel) 100 mg QHS PO Last administered on 08/11/16 19:22; Start 07/15/16 at 21:00 Trazodone HCl (Desyrel) 100 mg PRN QHS PO ; Start 07/15/16 at 13:45; Stop at 23:01; Status DC Trazodone HCl (Desyrel) 100 mg PRN QHS PRN PO INSOMNIA Last administered on 00:53; Start 07/15/16 at 23:00 Quetiapine Fumarate (SEROquel) 50 mg 1X ONCE PO Last administered on 07/16/16 00:44; Start 07/16/16 at 00:30; Stop 07/16/16 at 00:31; Status DC Temazepam (Restoril) 30 mg PRN QHS PRN PO INSOMNIA Last administered on 19:04; Start 07/16/16 at 18:30; Stop 08/09/16 at 18:24; Status DC Divalproex Sodium (Depakote Sprinkles) 250 mg BID PO Last administered on 12:20; Start 07/19/16 at 21:00; Stop 07/22/16 at 18:23; Status DC Acetaminophen (Tylenol) 650 mg PRN Q6HRS PRN PO PAIN / TEMP Last administered on 08/09/16 16:38; Start 07/22/16 at 15:30 Divalproex Sodium (Depakote Sprinkles) 375 mg BID PO Last administered on 08:58; Start 07/22/16 at 21:00; Stop 08/04/16 at 17:56; Status DC Melatonin 6 mg QHS PO Last administered on 08/11/16 19:22; Start 07/22/16 at 21 :00 Risperidone (Risperdal) 0.25 mg QID PO Last administered on 08/11/16 19:21; Start 07/24/16 at 21:00 Lorazepam (Ativan) 1 mg DAILY IM ; Start 07/27/16 at 09:00; Stop 07/27/16 at 09: 00; Status DC Lorazepam (Ativan) 1 mg 14 IM Last administered on 07/28/16 13:47; Start 07/26 at 15:00; Stop 07/29/16 at 14:13; Status DC Haloperidol Lactate (Haldol) 5 mg 1X ONCE IM Last administered on 07/27/16 16 :15; Start 07/27/16 at 16:15; Stop 07/27/16 at 16:16; Status DC Haloperidol Lactate (Haldol) 5 mg 14 IM Last administered on 07/28/16 13:46; Start 07/28/16 at 14:00; Stop 07/29/16 at 14:13; Status DC Buspirone HCl (Buspar) 10 mg TID PO Last administered on 08/04/16 08:58; Start 07/27/16 at 21:00; Stop 08/04/16 at 17:56; Status DC Trazodone HCl (Desyrel) 12.5 mg TIDWMEALS PO Last administered on 08/03/16 11: 58; Start 07/28/16 at 08:00; Stop 08/03/16 at 13:40; Status DC Fosfomycin Tromethamine (Monurol) 3 gm 1X ONCE PO Last administered on 06:27; Start 07/29/16 at 06:30; Stop 07/29/16 at 06:32; Status DC Trazodone HCl (Desyrel) 25 mg TIDWMEALS PO Last administered on 08/06/16 07:54 ; Start 08/03/16 at 17:00; Stop 08/06/16 at 11:24; Status DC Buspirone HCl (Buspar) 10 mg QID PO Last administered on 08/11/16 19:21; Start 08/04/16 at 21:00 Haloperidol Lactate (Haldol) 5 mg AFTRNOON IM Last administered on 08/11/16 17: 01; Start 08/05/16 at 13:15 Lorazepam (Ativan) 0.5 mg AFTRNOON IM Last administered on 08/11/16 17:01; Start 08/05/16 at 13:15 Oxcarbazepine (Trileptal) 300 mg BID PO Last administered on 08/11/16 09:48; Start 08/06/16 at 21:00; Stop 08/11/16 at 18:43; Status DC Trazodone HCl (Desyrel) 50 mg BID PO Last administered on 08/11/16 19:21; Start 08/06/16 at 21:00 Trazodone HCl (Desyrel) 50 mg 14 PO Last administered on 08/11/16 13:00; Start 08/06/16 at 14:00 Temazepam (Restoril) 15 mg PRN QHS PRN PO INSOMNIA Last administered on 19:21; Start 08/09/16 at 18:30 Oxcarbazepine (Trileptal) 300 mg TID PO Last administered on 08/11/16 19:21; Start 08/11/16 at 21:00 Active Scripts Active Lisinopril 20 Mg Tablet 1 Tab PO DAILY NICODERM CQ 21mg (Nicotine) 1 Each Patch.td24 1 Patch TP DAILY Lorazepam 0.5 Mg Tablet 1 Tab PO Q4HRS PRN Hydroxyzine Hcl 25 Mg Tablet 1 Tab PO Q6HRS PRN Benadryl (Diphenhydramine Hcl) 25 Mg Capsule 1 Cap PO Q6HRS Diagnosis: Problems: (1) Encounter for psychological evaluation (2) Anxiety disorder (3) Impulse control disorder (4) Dementia, vascular, with delusions (5) Dementia, vascular, with depression (6) Dementia in Alzheimer's disease with delusions (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
--- NOTE | 2016-08-12 03:02 | PN ---
DATE: 08/10/2016 PSYCHIATRIC PROGRESS NOTE This is a late entry of 08/10/2016, covers elements not covered in my initial note. SUBJECTIVE: The patient did well the morning of 08/10/2016 until about 3:45 p.m. Then she was confused, believed another demented patient was her granddaughter, then staff intervened. She was spitting at staff, agitated, aggressive, yelling, cursing, threatening noncompliant with medications. Haldol and Ativan IM were held. REVIEW OF SYSTEMS: No CV, , eye, ENT or pulmonary system symptoms on review. Reliability poor. MENTAL STATUS EXAM: Oriented to herself. Insight, judgment, recent and remote memory, attention, concentration, fund of knowledge poor, consistent with her diagnosis, mentioned in my initial note. PLAN: Valproic acid level, therapeutic at 56, continue psychotropics mentioned in my initial note. Reassess changes depending on her clinical progress. CAITLYN BHATT MD DR: ALICIA/shanon JOB#: [id number] / [id number]
[2016-08-12 06:13] VITALS: BP 152/87
[2016-08-12] MEDS: NICOTINE 21MG PATCH. TD SCH (08:15)
[2016-08-12] MEDS: LISINOPRIL 20 MG TABLET PO SCH (08:16)
[2016-08-12] MEDS: busPIRone 10 MG TABLET. PO SCH ×4 (08:16→19:38)
[2016-08-12] MEDS: traZODone 50 MG TABLET. PO SCH ×3 (08:16→19:38)
[2016-08-12] MEDS: CITALOPRAM 10 MG TABLET. PO SCH (08:16)
[2016-08-12] MEDS: DOCUSATE CALCIUM 240 MG CAPSULE PO SCH (08:16)
[2016-08-12] MEDS: risperiDONE 0.25 MG TABLET. PO SCH ×4 (08:18→19:39)
--- NOTE | 2016-08-12 10:00 | NUR ---
Behavior Intervention Response and Plan: BIRP Note: Behavior: Assumed Care of patient, patient located in Hallway at shift change. Patient exhibited the following behavior Interactive, Disorganized, Compliant. Brief assessment on rounds of vital signs, medication needs, lab studies, and pain. Treatment plan problems . Intervention: Patient assessed and the following interventions initiated safety checks 15 Minute Checks Medications , Nutrition , Call amaya in reach. Response: After interactions and interventions patient responded in the following manner, Motor Retardation , Interactive ,Compliant. Continue to assess behaviors and condition will continue to monitor throughout the shift as needed. Plan: Continue to monitor Master Treatment Plan for patient's progress toward short term goals of Decreased Anxiety, Decreased Agitation, intermediate frame tender goals to return to previous living setting vs placement. Continue to assess patient for changes in above assessment. Monitor for medication needs, pain, and safety concerns. Hourly rounding performed to ensure safe environment.
[2016-08-12] MEDS: CHOLECALCIFEROL (VITAMIN D3) 1,000 UNIT TABLET PO SCH ×2 (12:30→16:35)
[2016-08-12 15:32] VITALS: BP 118/76
--- NOTE | 2016-08-12 17:08 | NUR ---
Group Note [facility] Group Type Rain drops - Rainbows Start Time: 13:40 End Time: 1420 Problem: Anxiety Purpose: Reduction of Agitation, Increase awareness, Express feelings Level of Participation: High Behaviors or Symptoms Observed: Pt sat with group and interacted with each other and SW regarding what makes them sad and what makes them happy. Interventions: Reinforcement Response: Pts told or wrote on rain drops what makes them sad/angry as well as how their body responds. Plan: Group Participation Additional Comments:
[2016-08-12] MEDS: HALOPERIDOL LACT 5 MG/ML VIAL. IM SCH (18:33)
--- NOTE | 2016-08-12 18:33 | NUR ---
Pt became loud and stood on a chair in the day room. Pt anger and yelling at staff and pt's. Redirected numerous times without success. IM Grace and IM Loiivan given at this time per Dr. Sanchez. Will continue to monitor and report.
[2016-08-12] MEDS: LORazepam 2 MG/ML VIAL IM SCH (18:34)
[2016-08-12] MEDS: TEMAZEPAM 15 MG CAPSULE PO PRN (19:38)
[2016-08-12] MEDS: MELATONIN 3 MG TABLET PO SCH (19:38)
[2016-08-12] MEDS: MIRTAZAPINE 15 MG TABLET PO SCH (19:38)
[2016-08-12] MEDS: traZODone 100 MG TABLET. PO SCH (19:39)
--- NOTE | 2016-08-12 20:53 | PDOC ---
Exam Yaya Demential Exam: Yaya Note: Please also refer to the separate dictated note~for this date of service dictated separately.~Patient seen individually. Discussed the patient with Nursing staff reviewed the chart.~Reviewed interim history and current functioning. Reviewed vital signs,~Labs/ Radiology~and current medications noted below. Continue current treatment with the changes noted in the dictated addendum note Assessment: Vital Signs: Vital Signs Date Time Temp Pulse Resp B/P Pulse Ox O2 Delivery O2 Flow Rate FiO2 08/12/16 15:32 97.6 70 16 118/76 96 08/10/16 19:00 Room Air 08/08/16 16:15 92.0 I&O Intake and Output 08/12/16 07:00 Intake Total 1440 ml Balance 1440 ml Intake Oral 1440 ml # Voids 1 Current Medications: Meds: Current Medications Diphenhydramine HCl (Benadryl) 25 mg Q6HRS PO ; Start 07/01/16 at 18:00; Stop at 18:00; Status DC Hydroxyzine HCl (Atarax) 25 mg PRN Q6HRS PRN PO ITCHING Last administered on 01:19; Start 07/01/16 at 15:15; Stop 07/06/16 at 04:21; Status DC Lisinopril (Prinivil) 20 mg DAILY PO Last administered on 08/12/16 08:16; Start 07/02/16 at 09:00 Lorazepam (Ativan) 0.5 mg PRN Q4HRS PRN PO ANXIETY / AGITATION Last administered on 07/02/16 21:07; Start 07/01/16 at 15:15; Stop 07/02/16 at 21:44 ; Status DC Nicotine (Nicoderm Cq 21mg) 1 patch DAILY TD Last administered on 08/12/16 08: 15; Start 07/02/16 at 09:00 Lorazepam (Ativan) 0.5 mg PRN Q4HRS PRN IV ANXIETY / AGITATION; Start 07/01/16 at 15:15; Stop 07/01/16 at 19:14; Status DC Diphenhydramine HCl (Benadryl) 25 mg PRN Q6HRS PRN IVP ITCHING; Start 07/01/16 at 15:15; Stop 07/01/16 at 19:14; Status DC Haloperidol Lactate (Haldol) 5 mg PRN Q6HRS PRN IM AGITATION; Start 07/01/16 at 15:15; Stop 07/01/16 at 19:14; Status DC Diphenhydramine HCl (Benadryl) 25 mg PRN Q6HRS PRN PO ITCHING Last administered on 07/01/16 20:56; Start 07/01/16 at 18:00 Acetaminophen/ Hydrocodone Bitart (Lortab 5/325) 1 tab PRN BID PRN PO PAIN Last administered on 08/06/16 13:12; Start 07/02/16 at 21:45 Olanzapine (Zyprexa Zydis) 2.5 mg PRN Q2HR PRN PO PSYCHOSIS Last administered on 08/07/16 15:54; Start 07/02/16 at 21:45 Mirtazapine (Remeron) 15 mg QHS PO Last administered on 08/12/16 19:38; Start 07/03/16 at 21:00 Citalopram Hydrobromide (Celexa) 10 mg DAILY PO Last administered on 08/12/16 08:16; Start 07/03/16 at 09:00 Risperidone (Risperdal) 0.25 mg BID PO Last administered on 07/10/16 08:54; Start 07/03/16 at 21:00; Stop 07/10/16 at 15:18; Status DC Docusate Calcium (Surfak) 240 mg DAILY PO Last administered on 08/12/16 08:16; Start 07/04/16 at 21:00 Magnesium Hydroxide (Milk Of Magnesia) 2,400 mg PRN QHS PRN PO CONSTIPATION; Start 07/04/16 at 18:15 Trazodone HCl (Desyrel) 50 mg QHS PO Last administered on 07/14/16 20:10; Start 07/05/16 at 21:00; Stop 07/15/16 at 13:52; Status DC Trazodone HCl (Desyrel) 50 mg PRN QHS PRN PO INSOMNIA Last administered on 21:27; Start 07/05/16 at 20:45; Stop 07/15/16 at 13:52; Status DC Hydroxyzine HCl (Atarax) 50 mg PRN Q2HR PRN PO Psychosis Last administered on 15:54; Start 07/06/16 at 04:30 Fentanyl (Duragesic 12mcg/ Hr) 1 patch Q3DAYS TD Last administered on 08/10/16 13:50; Start 07/08/16 at 18:30 Risperidone (Risperdal) 0.25 mg TID PO Last administered on 07/24/16 13:20; Start 07/10/16 at 21:00; Stop 07/24/16 at 18:29; Status DC Buspirone HCl (Buspar) 5 mg TID PO Last administered on 07/13/16 12:28; Start 07/10/16 at 21:00; Stop 07/13/16 at 15:32; Status DC Buspirone HCl (Buspar) 10 mg BID PO Last administered on 07/27/16 09:32; Start 07/13/16 at 21:00; Stop 07/27/16 at 18:29; Status DC Divalproex Sodium (Depakote Sprinkles) 125 mg BID PO Last administered on 07:46; Start 07/13/16 at 21:00; Stop 07/19/16 at 11:49; Status DC Vitamin D (Vitamin D3) 2,000 unit BIDPCLD PO Last administered on 08/12/16 16: 35; Start 07/14/16 at 12:30 Trazodone HCl (Desyrel) 100 mg QHS PO Last administered on 08/12/16 19:39; Start 07/15/16 at 21:00 Trazodone HCl (Desyrel) 100 mg PRN QHS PO ; Start 07/15/16 at 13:45; Stop at 23:01; Status DC Trazodone HCl (Desyrel) 100 mg PRN QHS PRN PO INSOMNIA Last administered on 00:53; Start 07/15/16 at 23:00 Quetiapine Fumarate (SEROquel) 50 mg 1X ONCE PO Last administered on 07/16/16 00:44; Start 07/16/16 at 00:30; Stop 07/16/16 at 00:31; Status DC Temazepam (Restoril) 30 mg PRN QHS PRN PO INSOMNIA Last administered on 19:04; Start 07/16/16 at 18:30; Stop 08/09/16 at 18:24; Status DC Divalproex Sodium (Depakote Sprinkles) 250 mg BID PO Last administered on 12:20; Start 07/19/16 at 21:00; Stop 07/22/16 at 18:23; Status DC Acetaminophen (Tylenol) 650 mg PRN Q6HRS PRN PO PAIN / TEMP Last administered on 08/09/16 16:38; Start 07/22/16 at 15:30 Divalproex Sodium (Depakote Sprinkles) 375 mg BID PO Last administered on 08:58; Start 07/22/16 at 21:00; Stop 08/04/16 at 17:56; Status DC Melatonin 6 mg QHS PO Last administered on 08/12/16 19:38; Start 07/22/16 at 21 :00 Risperidone (Risperdal) 0.25 mg QID PO Last administered on 08/12/16 19:39; Start 07/24/16 at 21:00 Lorazepam (Ativan) 1 mg DAILY IM ; Start 07/27/16 at 09:00; Stop 07/27/16 at 09: 00; Status DC Lorazepam (Ativan) 1 mg 14 IM Last administered on 07/28/16 13:47; Start 07/26 at 15:00; Stop 07/29/16 at 14:13; Status DC Haloperidol Lactate (Haldol) 5 mg 1X ONCE IM Last administered on 07/27/16 16 :15; Start 07/27/16 at 16:15; Stop 07/27/16 at 16:16; Status DC Haloperidol Lactate (Haldol) 5 mg 14 IM Last administered on 07/28/16 13:46; Start 07/28/16 at 14:00; Stop 07/29/16 at 14:13; Status DC Buspirone HCl (Buspar) 10 mg TID PO Last administered on 08/04/16 08:58; Start 07/27/16 at 21:00; Stop 08/04/16 at 17:56; Status DC Trazodone HCl (Desyrel) 12.5 mg TIDWMEALS PO Last administered on 08/03/16 11: 58; Start 07/28/16 at 08:00; Stop 08/03/16 at 13:40; Status DC Fosfomycin Tromethamine (Monurol) 3 gm 1X ONCE PO Last administered on 06:27; Start 07/29/16 at 06:30; Stop 07/29/16 at 06:32; Status DC Trazodone HCl (Desyrel) 25 mg TIDWMEALS PO Last administered on 08/06/16 07:54 ; Start 08/03/16 at 17:00; Stop 08/06/16 at 11:24; Status DC Buspirone HCl (Buspar) 10 mg QID PO Last administered on 08/12/16 19:38; Start 08/04/16 at 21:00 Haloperidol Lactate (Haldol) 5 mg AFTRNOON IM Last administered on 08/12/16 18: 33; Start 08/05/16 at 13:15 Lorazepam (Ativan) 0.5 mg AFTRNOON IM Last administered on 08/12/16 18:34; Start 08/05/16 at 13:15 Oxcarbazepine (Trileptal) 300 mg BID PO Last administered on 08/11/16 09:48; Start 08/06/16 at 21:00; Stop 08/11/16 at 18:43; Status DC Trazodone HCl (Desyrel) 50 mg BID PO Last administered on 08/12/16 19:38; Start 08/06/16 at 21:00 Trazodone HCl (Desyrel) 50 mg 14 PO Last administered on 08/12/16 13:02; Start 08/06/16 at 14:00 Temazepam (Restoril) 15 mg PRN QHS PRN PO INSOMNIA Last administered on 19:38; Start 08/09/16 at 18:30 Oxcarbazepine (Trileptal) 300 mg TID PO Last administered on 08/12/16 19:39; Start 08/11/16 at 21:00 Active Scripts Active Lisinopril 20 Mg Tablet 1 Tab PO DAILY NICODERM CQ 21mg (Nicotine) 1 Each Patch.td24 1 Patch TP DAILY Lorazepam 0.5 Mg Tablet 1 Tab PO Q4HRS PRN Hydroxyzine Hcl 25 Mg Tablet 1 Tab PO Q6HRS PRN Benadryl (Diphenhydramine Hcl) 25 Mg Capsule 1 Cap PO Q6HRS Diagnosis: Problems: (1) Encounter for psychological evaluation (2) Anxiety disorder (3) Impulse control disorder (4) Dementia, vascular, with delusions (5) Dementia, vascular, with depression (6) Dementia in Alzheimer's disease with delusions (7) Dementia in Alzheimer's disease with depression CAITLYN BHATT MD August 12, 2016 20:53
--- NOTE | 2016-08-12 22:40 | NUR ---
Behavior Intervention Response and Plan: BIRP Note: Behavior: Assumed Care of patient, patient located in Hallway at shift change. Patient exhibited the following behavior Wandering, Restless, Irritable. Brief assessment on rounds of vital signs, medication needs, lab studies, and pain. Treatment plan problems 1 and 2. Intervention: Patient assessed and the following interventions initiated safety checks 15 Minute Checks Cognitive Assessment , Head to toe Assessment , Medications. Response: After interactions and interventions patient responded in the following manner, Calm , Compliant ,Cooperative. Continue to assess behaviors and condition will continue to monitor throughout the shift as needed. 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 Continue to assess patient for changes in above assessment. Monitor for medication needs, pain, and safety concerns. Hourly rounding performed to ensure safe environment.
--- NOTE | 2016-08-13 07:05 | PN ---
DATE: 08/11/2016 PSYCHIATRIC PROGRESS NOTE This is a late entry for 08/11/2016, covers elements not covered in my initial note. SUBJECTIVE: The patient took her a.m. medications, was agitated in the afternoon, received PRNs; refused her BuSpar, Risperdal at 1700. Speaking in Ukrainian, loud, disruptive. IM Haldoericka Ativan was held. REVIEW OF SYSTEMS: No CV, , pulmonary, eye, ENT system symptoms on review. Reliability poor. MENTAL STATUS: Oriented to herself. Insight, judgment, recent and remote memory, attention, concentration, fund of knowledge poor, consistent with her diagnosis mentioned in my initial note. PLAN: Increase Trileptal from 300 mg b.i.d. to three times a day. Maintain the rest of the psychotropics mentioned in my initial note. MAN Quinten BHATT MD DR: ALICIA/shanon JOB#: [id number] / [id number]
[2016-08-13] MEDS: NICOTINE 21MG PATCH. TD SCH (08:07)
[2016-08-13] MEDS: fentaNYL 12MCG/HR 1 PATCH PATCH TD SCH (08:08)
[2016-08-13] MEDS: DOCUSATE CALCIUM 240 MG CAPSULE PO SCH (08:09)
[2016-08-13] MEDS: CITALOPRAM 10 MG TABLET. PO SCH (08:09)
[2016-08-13] MEDS: busPIRone 10 MG TABLET. PO SCH ×4 (08:09→19:10)
[2016-08-13] MEDS: CHOLECALCIFEROL (VITAMIN D3) 1,000 UNIT TABLET PO SCH ×2 (08:10→17:02)
[2016-08-13] MEDS: traZODone 50 MG TABLET. PO SCH ×3 (08:10→19:10)
[2016-08-13] MEDS: risperiDONE 0.25 MG TABLET. PO SCH ×4 (08:10→19:10)
[2016-08-13] MEDS: LISINOPRIL 20 MG TABLET PO SCH (08:10)
--- NOTE | 2016-08-13 10:14 | NUR ---
Patient appears drowsy. Speaking Syriac. Looking for elevator to upstairs. Will continue to monitor.
--- NOTE | 2016-08-13 10:15 | NUR ---
Behavior Intervention Response and Plan: BIRP Note: Behavior: Assumed Care of patient, patient located in Hallway at shift change. Patient exhibited the following behavior Wandering, Restless, Calm. Brief assessment on rounds of vital signs, medication needs, lab studies, and pain. Treatment plan problems 1 and 2. Intervention: Patient assessed and the following interventions initiated safety checks 15 Minute Checks Cognitive Assessment , Head to toe Assessment , Medications. Response: After interactions and interventions patient responded in the following manner, Wandering , Restless ,Compliant. Continue to assess behaviors and condition will continue to monitor throughout the shift as needed. 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 Continue to assess patient for changes in above assessment. Monitor for medication needs, pain, and safety concerns. Hourly rounding performed to ensure safe environment.
--- NOTE | 2016-08-13 11:54 | NUR ---
TIA spoke with pt daughter in law she states she has a phone conference, SW to update her. SW updated pt daughter in law after treatment team, she has no questions. SW and pt daughter in law talked at lent about her and her family visiting and the issues it is causing with pt once they leave. Pt family verbalizes they understand and have seen this as well. Pt daughter in law and SW talked about family not visiting for a while as they are a trigger for her. Pt daughter in law talked about hiring someone to help care for her and check in on her once she goes to a facility. SW and daughter in law will work on placement once pt is stable, pt is medicaid pending.
--- NOTE | 2016-08-13 12:19 | NUR ---
Patient attempted to throw "wet floor" sign at aide. Redirected away from aide and will continue to monitor.
[2016-08-13] MEDS: HALOPERIDOL LACT 5 MG/ML VIAL. IM SCH (13:49)
[2016-08-13] MEDS: LORazepam 2 MG/ML VIAL IM SCH (13:50)
--- NOTE | 2016-08-13 14:00 | NUR ---
IM ativan/haldol given per order at 1400.
[2016-08-13 15:45] VITALS: BP 111/75
[2016-08-13] MEDS: MIRTAZAPINE 15 MG TABLET PO SCH (19:09)
[2016-08-13] MEDS: traZODone 100 MG TABLET. PO SCH (19:10)
[2016-08-13] MEDS: MELATONIN 3 MG TABLET PO SCH (19:10)
--- NOTE | 2016-08-13 20:12 | PDOC ---
Exam Yaya Demential Exam: Yaya Note: Please also refer to the separate dictated note~for this date of service dictated separately.~Patient seen individually. Discussed the patient with Nursing staff reviewed the chart.~Reviewed interim history and current functioning. Reviewed vital signs,~Labs/ Radiology~and current medications noted below. Continue current treatment with the changes noted in the dictated addendum note Assessment: Vital Signs: Vital Signs Date Time Temp Pulse Resp B/P (MAP) Pulse Ox O2 Delivery O2 Flow Rate FiO2 08/13/16 15:45 98.6 104 16 111/75 (87) 95 08/10/16 19:00 Room Air 08/08/16 16:15 92.0 I&O Intake and Output 08/13/16 07:00 Intake Total 840 ml Balance 840 ml Intake Oral 840 ml # Voids 1 Current Medications: Meds: Current Medications Diphenhydramine HCl (Benadryl) 25 mg Q6HRS PO ; Start 07/01/16 at 18:00; Stop at 18:00; Status DC Hydroxyzine HCl (Atarax) 25 mg PRN Q6HRS PRN PO ITCHING Last administered on 01:19; Start 07/01/16 at 15:15; Stop 07/06/16 at 04:21; Status DC Lisinopril (Prinivil) 20 mg DAILY PO Last administered on 08/13/16 08:10; Start 07/02/16 at 09:00 Lorazepam (Ativan) 0.5 mg PRN Q4HRS PRN PO ANXIETY / AGITATION Last administered on 07/02/16 21:07; Start 07/01/16 at 15:15; Stop 07/02/16 at 21:44 ; Status DC Nicotine (Nicoderm Cq 21mg) 1 patch DAILY TD Last administered on 08/13/16 08: 07; Start 07/02/16 at 09:00 Lorazepam (Ativan) 0.5 mg PRN Q4HRS PRN IV ANXIETY / AGITATION; Start 07/01/16 at 15:15; Stop 07/01/16 at 19:14; Status DC Diphenhydramine HCl (Benadryl) 25 mg PRN Q6HRS PRN IVP ITCHING; Start 07/01/16 at 15:15; Stop 07/01/16 at 19:14; Status DC Haloperidol Lactate (Haldol) 5 mg PRN Q6HRS PRN IM AGITATION; Start 07/01/16 at 15:15; Stop 07/01/16 at 19:14; Status DC Diphenhydramine HCl (Benadryl) 25 mg PRN Q6HRS PRN PO ITCHING Last administered on 07/01/16 20:56; Start 07/01/16 at 18:00 Acetaminophen/ Hydrocodone Bitart (Lortab 5/325) 1 tab PRN BID PRN PO PAIN Last administered on 08/06/16 13:12; Start 07/02/16 at 21:45 Olanzapine (Zyprexa Zydis) 2.5 mg PRN Q2HR PRN PO PSYCHOSIS Last administered on 08/07/16 15:54; Start 07/02/16 at 21:45 Mirtazapine (Remeron) 15 mg QHS PO Last administered on 08/13/16 19:09; Start 07/03/16 at 21:00 Citalopram Hydrobromide (Celexa) 10 mg DAILY PO Last administered on 08/13/16 08:09; Start 07/03/16 at 09:00 Risperidone (Risperdal) 0.25 mg BID PO Last administered on 07/10/16 08:54; Start 07/03/16 at 21:00; Stop 07/10/16 at 15:18; Status DC Docusate Calcium (Surfak) 240 mg DAILY PO Last administered on 08/13/16 08:09; Start 07/04/16 at 21:00 Magnesium Hydroxide (Milk Of Magnesia) 2,400 mg PRN QHS PRN PO CONSTIPATION; Start 07/04/16 at 18:15 Trazodone HCl (Desyrel) 50 mg QHS PO Last administered on 07/14/16 20:10; Start 07/05/16 at 21:00; Stop 07/15/16 at 13:52; Status DC Trazodone HCl (Desyrel) 50 mg PRN QHS PRN PO INSOMNIA Last administered on 21:27; Start 07/05/16 at 20:45; Stop 07/15/16 at 13:52; Status DC Hydroxyzine HCl (Atarax) 50 mg PRN Q2HR PRN PO Psychosis Last administered on 15:54; Start 07/06/16 at 04:30 Fentanyl (Duragesic 12mcg/ Hr) 1 patch Q3DAYS TD Last administered on 08/13/16 08:08; Start 07/08/16 at 18:30 Risperidone (Risperdal) 0.25 mg TID PO Last administered on 07/24/16 13:20; Start 07/10/16 at 21:00; Stop 07/24/16 at 18:29; Status DC Buspirone HCl (Buspar) 5 mg TID PO Last administered on 07/13/16 12:28; Start 07/10/16 at 21:00; Stop 07/13/16 at 15:32; Status DC Buspirone HCl (Buspar) 10 mg BID PO Last administered on 07/27/16 09:32; Start 07/13/16 at 21:00; Stop 07/27/16 at 18:29; Status DC Divalproex Sodium (Depakote Sprinkles) 125 mg BID PO Last administered on 07:46; Start 07/13/16 at 21:00; Stop 07/19/16 at 11:49; Status DC Vitamin D (Vitamin D3) 2,000 unit BIDPCLD PO Last administered on 08/13/16 17: 02; Start 07/14/16 at 12:30 Trazodone HCl (Desyrel) 100 mg QHS PO Last administered on 08/13/16 19:10; Start 07/15/16 at 21:00 Trazodone HCl (Desyrel) 100 mg PRN QHS PO ; Start 07/15/16 at 13:45; Stop at 23:01; Status DC Trazodone HCl (Desyrel) 100 mg PRN QHS PRN PO INSOMNIA Last administered on 00:53; Start 07/15/16 at 23:00 Quetiapine Fumarate (SEROquel) 50 mg 1X ONCE PO Last administered on 07/16/16 00:44; Start 07/16/16 at 00:30; Stop 07/16/16 at 00:31; Status DC Temazepam (Restoril) 30 mg PRN QHS PRN PO INSOMNIA Last administered on 19:04; Start 07/16/16 at 18:30; Stop 08/09/16 at 18:24; Status DC Divalproex Sodium (Depakote Sprinkles) 250 mg BID PO Last administered on 12:20; Start 07/19/16 at 21:00; Stop 07/22/16 at 18:23; Status DC Acetaminophen (Tylenol) 650 mg PRN Q6HRS PRN PO PAIN / TEMP Last administered on 08/09/16 16:38; Start 07/22/16 at 15:30 Divalproex Sodium (Depakote Sprinkles) 375 mg BID PO Last administered on 08:58; Start 07/22/16 at 21:00; Stop 08/04/16 at 17:56; Status DC Melatonin 6 mg QHS PO Last administered on 08/13/16 19:10; Start 07/22/16 at 21 :00 Risperidone (Risperdal) 0.25 mg QID PO Last administered on 08/13/16 19:10; Start 07/24/16 at 21:00 Lorazepam (Ativan) 1 mg DAILY IM ; Start 07/27/16 at 09:00; Stop 07/27/16 at 09: 00; Status DC Lorazepam (Ativan) 1 mg 14 IM Last administered on 07/28/16 13:47; Start 07/26 at 15:00; Stop 07/29/16 at 14:13; Status DC Haloperidol Lactate (Haldol) 5 mg 1X ONCE IM Last administered on 07/27/16 16 :15; Start 07/27/16 at 16:15; Stop 07/27/16 at 16:16; Status DC Haloperidol Lactate (Haldol) 5 mg 14 IM Last administered on 07/28/16 13:46; Start 07/28/16 at 14:00; Stop 07/29/16 at 14:13; Status DC Buspirone HCl (Buspar) 10 mg TID PO Last administered on 08/04/16 08:58; Start 07/27/16 at 21:00; Stop 08/04/16 at 17:56; Status DC Trazodone HCl (Desyrel) 12.5 mg TIDWMEALS PO Last administered on 08/03/16 11: 58; Start 07/28/16 at 08:00; Stop 08/03/16 at 13:40; Status DC Fosfomycin Tromethamine (Monurol) 3 gm 1X ONCE PO Last administered on 06:27; Start 07/29/16 at 06:30; Stop 07/29/16 at 06:32; Status DC Trazodone HCl (Desyrel) 25 mg TIDWMEALS PO Last administered on 08/06/16 07:54 ; Start 08/03/16 at 17:00; Stop 08/06/16 at 11:24; Status DC Buspirone HCl (Buspar) 10 mg QID PO Last administered on 08/13/16 19:10; Start 08/04/16 at 21:00 Haloperidol Lactate (Haldol) 5 mg AFTRNOON IM Last administered on 08/13/16 13: 49; Start 08/05/16 at 13:15 Lorazepam (Ativan) 0.5 mg AFTRNOON IM Last administered on 08/13/16 13:50; Start 08/05/16 at 13:15 Oxcarbazepine (Trileptal) 300 mg BID PO Last administered on 08/11/16 09:48; Start 08/06/16 at 21:00; Stop 08/11/16 at 18:43; Status DC Trazodone HCl (Desyrel) 50 mg BID PO Last administered on 08/13/16 19:10; Start 08/06/16 at 21:00 Trazodone HCl (Desyrel) 50 mg 14 PO Last administered on 08/13/16 13:15; Start 08/06/16 at 14:00 Temazepam (Restoril) 15 mg PRN QHS PRN PO INSOMNIA Last administered on 19:38; Start 08/09/16 at 18:30 Oxcarbazepine (Trileptal) 300 mg TID PO Last administered on 08/13/16 19:10; Start 08/11/16 at 21:00 Haloperidol Decanoate (Haldol Decanoate Im Extended Release) 100 mg QMONTH IM ; Start 08/13/16 at 21:00 Active Scripts Active Lisinopril 20 Mg Tablet 1 Tab PO DAILY NICODERM CQ 21mg (Nicotine) 1 Each Patch.td24 1 Patch TP DAILY Lorazepam 0.5 Mg Tablet 1 Tab PO Q4HRS PRN Hydroxyzine Hcl 25 Mg Tablet 1 Tab PO Q6HRS PRN Benadryl (Diphenhydramine Hcl) 25 Mg Capsule 1 Cap PO Q6HRS Diagnosis: Problems: (1) Encounter for psychological evaluation (2) Anxiety disorder (3) Impulse control disorder (4) Dementia, vascular, with delusions (5) Dementia, vascular, with depression (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
--- NOTE | 2016-08-13 20:30 | NUR ---
Behavior Intervention Response and Plan: BIRP Note: Behavior: Assumed Care of patient, patient located in Day Room at shift change. Patient exhibited the following behavior Calm, Interactive, Disorganized. Brief assessment on rounds of vital signs, medication needs, lab studies, and pain. Treatment plan problems: Dementia with BD and Fall Risk. Intervention: Patient assessed and the following interventions initiated safety checks 15 Minute Checks Cognitive Assessment , Head to toe Assessment , Medications, Oral Hydration, and Nutrition. Response: After interactions and interventions patient responded in the following manner, Calm , Compliant ,Cooperative. Continue to assess behaviors and condition will continue to monitor throughout the shift as needed. 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 Continue to assess patient for changes in above assessment. Monitor for medication needs, pain, and safety concerns. Hourly rounding performed to ensure safe environment.
[2016-08-13] MEDS ORDERED: HALOPERIDOL DECANOATE IM ER 50 MG/ML VIAL. IM SCH (21:00)
--- NOTE | 2016-08-13 21:00 | NUR ---
Nursing Note: IM Haldol and Decanoate administered as ordered. Patient tolerated well. Will monitor.
[2016-08-14 06:22] VITALS: BP 127/79
[2016-08-14] MEDS: NICOTINE 21MG PATCH. TD SCH (07:47)
[2016-08-14] MEDS: CITALOPRAM 10 MG TABLET. PO SCH (07:47)
[2016-08-14] MEDS: DOCUSATE CALCIUM 240 MG CAPSULE PO SCH (07:47)
[2016-08-14] MEDS: busPIRone 10 MG TABLET. PO SCH ×4 (07:47→19:26)
[2016-08-14] MEDS: LISINOPRIL 20 MG TABLET PO SCH (07:47)
[2016-08-14] MEDS: risperiDONE 0.25 MG TABLET. PO SCH ×4 (07:47→19:26)
[2016-08-14] MEDS: traZODone 50 MG TABLET. PO SCH ×3 (07:47→19:26)
--- NOTE | 2016-08-14 09:03 | NUR ---
Behavior Intervention Response and Plan: BIRP Note: Behavior: Assumed Care of patient, patient located in Dining Room at shift change. Patient exhibited the following behavior Disorganized, Calm, . Brief assessment on rounds of vital signs, medication needs, lab studies, and pain. Treatment plan problems . Intervention: Patient assessed and the following interventions initiated safety checks 15 Minute Checks Cognitive Assessment , Head to toe Assessment , Medications. Response: After interactions and interventions patient responded in the following manner, Compliant , Disorganized ,Drowsy. Continue to assess behaviors and condition will continue to monitor throughout the shift as needed. Plan: Continue to monitor Master Treatment Plan for patient's progress toward short term goals of Decreased Agitation, Decreased Aggression, half-way goals to return to previous living setting vs placement. Continue to assess patient for changes in above assessment. Monitor for medication needs, pain, and safety concerns. Hourly rounding performed to ensure safe environment.
[2016-08-14] MEDS: CHOLECALCIFEROL (VITAMIN D3) 1,000 UNIT TABLET PO SCH ×2 (12:22→16:32)
[2016-08-14] MEDS: HALOPERIDOL LACT 5 MG/ML VIAL. IM SCH (12:48)
[2016-08-14] MEDS: LORazepam 2 MG/ML VIAL IM SCH (12:48)
--- NOTE | 2016-08-14 14:01 | NUR ---
pt up for meals. took meds whole in am but required them crushed in afternoon because she spit them out. took IM with resistance. was placed on [place] as she was agitated and attempting to hit staff. now wandering in halls. calm now
[2016-08-14 15:42] VITALS: BP 138/81
--- NOTE | 2016-08-14 15:53 | NUR ---
SW called and spoke with pt daughter in law this afternoon, pt daughter in law states it is hard for them not to visit, however understands this is upsetting the pt. Pt daughter in law and SW to talk on Wednesday, if pt has a good weekend. SW will send out packets for placement.
[2016-08-14] MEDS: traZODone 100 MG TABLET. PO SCH (19:26)
[2016-08-14] MEDS: MIRTAZAPINE 15 MG TABLET PO SCH (19:26)
[2016-08-14] MEDS: MELATONIN 3 MG TABLET PO SCH (19:27)
[2016-08-14] MEDS: TEMAZEPAM 15 MG CAPSULE PO PRN (19:28)
--- NOTE | 2016-08-14 20:02 | PDOC ---
Exam Yaya Demential Exam: Yaya Note: Please also refer to the separate dictated note~for this date of service dictated separately.~Patient seen individually. Discussed the patient with Nursing staff reviewed the chart.~Reviewed interim history and current functioning. Reviewed vital signs,~Labs/ Radiology~and current medications noted below. Continue current treatment with the changes noted in the dictated addendum note Assessment: Vital Signs: Vital Signs Date Time Temp Pulse Resp B/P (MAP) Pulse Ox O2 Delivery O2 Flow Rate FiO2 08/14/16 15:42 98.0 66 16 138/81 (100) 95 08/10/16 19:00 Room Air 08/08/16 16:15 92.0 I&O Intake and Output 08/14/16 07:00 Intake Total 1320 ml Balance 1320 ml Intake Oral 1320 ml # Voids 1 # Bowel Movements 1 Current Medications: Meds: Current Medications Diphenhydramine HCl (Benadryl) 25 mg Q6HRS PO ; Start 07/01/16 at 18:00; Stop at 18:00; Status DC Hydroxyzine HCl (Atarax) 25 mg PRN Q6HRS PRN PO ITCHING Last administered on 01:19; Start 07/01/16 at 15:15; Stop 07/06/16 at 04:21; Status DC Lisinopril (Prinivil) 20 mg DAILY PO Last administered on 08/14/16 07:47; Start 07/02/16 at 09:00 Lorazepam (Ativan) 0.5 mg PRN Q4HRS PRN PO ANXIETY / AGITATION Last administered on 07/02/16 21:07; Start 07/01/16 at 15:15; Stop 07/02/16 at 21:44 ; Status DC Nicotine (Nicoderm Cq 21mg) 1 patch DAILY TD Last administered on 08/14/16 07: 47; Start 07/02/16 at 09:00 Lorazepam (Ativan) 0.5 mg PRN Q4HRS PRN IV ANXIETY / AGITATION; Start 07/01/16 at 15:15; Stop 07/01/16 at 19:14; Status DC Diphenhydramine HCl (Benadryl) 25 mg PRN Q6HRS PRN IVP ITCHING; Start 07/01/16 at 15:15; Stop 07/01/16 at 19:14; Status DC Haloperidol Lactate (Haldol) 5 mg PRN Q6HRS PRN IM AGITATION; Start 07/01/16 at 15:15; Stop 07/01/16 at 19:14; Status DC Diphenhydramine HCl (Benadryl) 25 mg PRN Q6HRS PRN PO ITCHING Last administered on 07/01/16 20:56; Start 07/01/16 at 18:00 Acetaminophen/ Hydrocodone Bitart (Lortab 5/325) 1 tab PRN BID PRN PO PAIN Last administered on 08/06/16 13:12; Start 07/02/16 at 21:45 Olanzapine (Zyprexa Zydis) 2.5 mg PRN Q2HR PRN PO PSYCHOSIS Last administered on 08/14/16 16:41; Start 07/02/16 at 21:45 Mirtazapine (Remeron) 15 mg QHS PO Last administered on 08/14/16 19:26; Start 07/03/16 at 21:00 Citalopram Hydrobromide (Celexa) 10 mg DAILY PO Last administered on 08/14/16 07:47; Start 07/03/16 at 09:00 Risperidone (Risperdal) 0.25 mg BID PO Last administered on 07/10/16 08:54; Start 07/03/16 at 21:00; Stop 07/10/16 at 15:18; Status DC Docusate Calcium (Surfak) 240 mg DAILY PO Last administered on 08/14/16 07:47; Start 07/04/16 at 21:00 Magnesium Hydroxide (Milk Of Magnesia) 2,400 mg PRN QHS PRN PO CONSTIPATION; Start 07/04/16 at 18:15 Trazodone HCl (Desyrel) 50 mg QHS PO Last administered on 07/14/16 20:10; Start 07/05/16 at 21:00; Stop 07/15/16 at 13:52; Status DC Trazodone HCl (Desyrel) 50 mg PRN QHS PRN PO INSOMNIA Last administered on 21:27; Start 07/05/16 at 20:45; Stop 07/15/16 at 13:52; Status DC Hydroxyzine HCl (Atarax) 50 mg PRN Q2HR PRN PO Psychosis Last administered on 15:54; Start 07/06/16 at 04:30 Fentanyl (Duragesic 12mcg/ Hr) 1 patch Q3DAYS TD Last administered on 08/13/16 08:08; Start 07/08/16 at 18:30 Risperidone (Risperdal) 0.25 mg TID PO Last administered on 07/24/16 13:20; Start 07/10/16 at 21:00; Stop 07/24/16 at 18:29; Status DC Buspirone HCl (Buspar) 5 mg TID PO Last administered on 07/13/16 12:28; Start 07/10/16 at 21:00; Stop 07/13/16 at 15:32; Status DC Buspirone HCl (Buspar) 10 mg BID PO Last administered on 07/27/16 09:32; Start 07/13/16 at 21:00; Stop 07/27/16 at 18:29; Status DC Divalproex Sodium (Depakote Sprinkles) 125 mg BID PO Last administered on 07:46; Start 07/13/16 at 21:00; Stop 07/19/16 at 11:49; Status DC Vitamin D (Vitamin D3) 2,000 unit BIDPCLD PO Last administered on 08/14/16 16: 32; Start 07/14/16 at 12:30 Trazodone HCl (Desyrel) 100 mg QHS PO Last administered on 08/14/16 19:26; Start 07/15/16 at 21:00 Trazodone HCl (Desyrel) 100 mg PRN QHS PO ; Start 07/15/16 at 13:45; Stop at 23:01; Status DC Trazodone HCl (Desyrel) 100 mg PRN QHS PRN PO INSOMNIA Last administered on 00:53; Start 07/15/16 at 23:00 Quetiapine Fumarate (SEROquel) 50 mg 1X ONCE PO Last administered on 07/16/16 00:44; Start 07/16/16 at 00:30; Stop 07/16/16 at 00:31; Status DC Temazepam (Restoril) 30 mg PRN QHS PRN PO INSOMNIA Last administered on 19:04; Start 07/16/16 at 18:30; Stop 08/09/16 at 18:24; Status DC Divalproex Sodium (Depakote Sprinkles) 250 mg BID PO Last administered on 12:20; Start 07/19/16 at 21:00; Stop 07/22/16 at 18:23; Status DC Acetaminophen (Tylenol) 650 mg PRN Q6HRS PRN PO PAIN / TEMP Last administered on 08/09/16 16:38; Start 07/22/16 at 15:30 Divalproex Sodium (Depakote Sprinkles) 375 mg BID PO Last administered on 08:58; Start 07/22/16 at 21:00; Stop 08/04/16 at 17:56; Status DC Melatonin 6 mg QHS PO Last administered on 08/14/16 19:27; Start 07/22/16 at 21 :00 Risperidone (Risperdal) 0.25 mg QID PO Last administered on 08/14/16 19:26; Start 07/24/16 at 21:00 Lorazepam (Ativan) 1 mg DAILY IM ; Start 07/27/16 at 09:00; Stop 07/27/16 at 09: 00; Status DC Lorazepam (Ativan) 1 mg 14 IM Last administered on 07/28/16 13:47; Start 07/26 at 15:00; Stop 07/29/16 at 14:13; Status DC Haloperidol Lactate (Haldol) 5 mg 1X ONCE IM Last administered on 07/27/16 16 :15; Start 07/27/16 at 16:15; Stop 07/27/16 at 16:16; Status DC Haloperidol Lactate (Haldol) 5 mg 14 IM Last administered on 07/28/16 13:46; Start 07/28/16 at 14:00; Stop 07/29/16 at 14:13; Status DC Buspirone HCl (Buspar) 10 mg TID PO Last administered on 08/04/16 08:58; Start 07/27/16 at 21:00; Stop 08/04/16 at 17:56; Status DC Trazodone HCl (Desyrel) 12.5 mg TIDWMEALS PO Last administered on 08/03/16 11: 58; Start 07/28/16 at 08:00; Stop 08/03/16 at 13:40; Status DC Fosfomycin Tromethamine (Monurol) 3 gm 1X ONCE PO Last administered on 06:27; Start 07/29/16 at 06:30; Stop 07/29/16 at 06:32; Status DC Trazodone HCl (Desyrel) 25 mg TIDWMEALS PO Last administered on 08/06/16 07:54 ; Start 08/03/16 at 17:00; Stop 08/06/16 at 11:24; Status DC Buspirone HCl (Buspar) 10 mg QID PO Last administered on 08/14/16 19:26; Start 08/04/16 at 21:00 Haloperidol Lactate (Haldol) 5 mg AFTRNOON IM Last administered on 08/14/16 12: 48; Start 08/05/16 at 13:15 Lorazepam (Ativan) 0.5 mg AFTRNOON IM Last administered on 08/14/16 12:48; Start 08/05/16 at 13:15 Oxcarbazepine (Trileptal) 300 mg BID PO Last administered on 08/11/16 09:48; Start 08/06/16 at 21:00; Stop 08/11/16 at 18:43; Status DC Trazodone HCl (Desyrel) 50 mg BID PO Last administered on 08/14/16 19:26; Start 08/06/16 at 21:00 Trazodone HCl (Desyrel) 50 mg 14 PO Last administered on 08/14/16 12:22; Start 08/06/16 at 14:00 Temazepam (Restoril) 15 mg PRN QHS PRN PO INSOMNIA Last administered on 19:28; Start 08/09/16 at 18:30 Oxcarbazepine (Trileptal) 300 mg TID PO Last administered on 08/14/16 19:26; Start 08/11/16 at 21:00 Haloperidol Decanoate (Haldol Decanoate Im Extended Release) 100 mg QMONTH IM Last administered on 08/13/16t 21:04; Start 08/13/16 at 21:00 Active Scripts Active Lisinopril 20 Mg Tablet 1 Tab PO DAILY NICODERM CQ 21mg (Nicotine) 1 Each Patch.td24 1 Patch TP DAILY Lorazepam 0.5 Mg Tablet 1 Tab PO Q4HRS PRN Hydroxyzine Hcl 25 Mg Tablet 1 Tab PO Q6HRS PRN Benadryl (Diphenhydramine Hcl) 25 Mg Capsule 1 Cap PO Q6HRS Diagnosis: Problems: (1) Encounter for psychological evaluation (2) Anxiety disorder (3) Impulse control disorder (4) Dementia, vascular, with delusions (5) Dementia, vascular, with depression (6) Dementia in Alzheimer's disease with delusions (7) Dementia in Alzheimer's disease with depression CAITLYN BHATT MD August 14, 2016 20:02
--- NOTE | 2016-08-14 20:30 | NUR ---
Behavior Intervention Response and Plan: BIRP Note: Behavior: Assumed Care of patient, patient located in Day Room at shift change. Patient exhibited the following behavior Calm, Withdrawn, Cooperative. Brief assessment on rounds of vital signs, medication needs, lab studies, and pain. Treatment plan problems: Dementia with BD and Fall Risk. Intervention: Patient assessed and the following interventions initiated safety checks 15 Minute Checks Cognitive Assessment , Head to toe Assessment , Medications, Oral Hydration, and Nutrition. Response: After interactions and interventions patient responded in the following manner, Calm , Cooperative ,Compliant. Continue to assess behaviors and condition will continue to monitor throughout the shift as needed. Plan: Continue to monitor Master Treatment Plan for patient's progress toward short term goals of Medication Compliance, Improved Mood, Decreased agitation, Decreased Anxiety, detention goals to return to previous living setting vs placement. Continue to assess patient for changes in above assessment. Monitor for medication needs, pain, and safety concerns. Hourly rounding performed to ensure safe environment.
--- NOTE | 2016-08-15 00:54 | PN ---
DATE: 08/12/2016 PSYCHIATRIC PROGRESS NOTE This is a late entry for 08/12/2016, covers elements not covered in my initial note. SUBJECTIVE: Per nursing report, the patient has not been speaking in [place]ian, taking her medications whole morning and evening, which is an improvement. She is not digging her nails into things like she was doing the day previously. REVIEW OF SYSTEMS: No CV, , pulmonary, eye, ENT system symptoms on review. Reliability poor. MENTAL STATUS EXAM: Oriented to herself. Insight, judgment, recent and remote memory, attention, concentration, fund of knowledge poor, consistent with her diagnosis, remains quite hyperverbal, but redirectable. DIAGNOSES: Mentioned in my initial note. PLAN: Continue current treatment mentioned in my initial note. Adjust further as clinically indicated. MAN Quinten BHATT MD DR: ALICIA/shanon JOB#: [id number] / [id number]
--- NOTE | 2016-08-15 01:23 | PN ---
DATE: 08/13/2016 This is a late entry, cover the elements not covered in my initial note. SUBJECTIVE: The patient was staffed at treatment team meeting with the entire team and then seen individually at length. Her [id number] Lian visited and son Erasmo visited. She gets more agitated after visits and staff. We will discuss with family about curtailing visits. She has been more aggressive, agitated, psychotic, difficult to redirect, and noncompliant with medications. REVIEW OF SYSTEMS: No CV, , pulmonary, eye, ENT system symptoms on review. Reliability poor. MENTAL STATUS EXAM: Oriented to herself. Insight, judgment, recent and remote memory, attention, concentration, fund of knowledge poor, consistent with her diagnosis as mentioned in my initial note. PLAN: The patient was noncompliant with the psychotropics as a major factor in her ongoing agitation, mood lability, and aggression. We will convert the daily IM Haldol to Haldol Decanoate per consult with pharmacist. Maintain the rest of the psychotropics. Once she receives Haldol Decanoate, we will go ahead and stop the Risperdal. Maintain the rest as before. Adjust further as clinically indicated. CAITLYN BHATT MD DR: ALICIA/shanon JOB#: [id number] / [id number]
[2016-08-15 06:18] VITALS: BP 130/81
[2016-08-15] MEDS: LISINOPRIL 20 MG TABLET PO SCH (07:12)
[2016-08-15] MEDS: DOCUSATE CALCIUM 240 MG CAPSULE PO SCH (07:12)
[2016-08-15] MEDS: traZODone 50 MG TABLET. PO SCH ×3 (07:12→20:01)
[2016-08-15] MEDS: CITALOPRAM 10 MG TABLET. PO SCH (07:12)
[2016-08-15] MEDS: busPIRone 10 MG TABLET. PO SCH ×4 (07:12→20:01)
[2016-08-15] MEDS: risperiDONE 0.25 MG TABLET. PO SCH ×4 (07:13→20:00)
[2016-08-15] MEDS: NICOTINE 21MG PATCH. TD SCH (07:14)
[2016-08-15 08:16] LABS: BASO # 0.1 x10^3/uL (0.0-0.2); BASO % 1 % (0-3); EOS # 0.5 x10^3/uL (0.0-0.7); EOS % 4 % (0-3); HEMATOCRIT 35.3 % (36.0-47.0); HEMOGLOBIN 11.6 g/dL (12.0-15.5); LYMPH # 3.6 x10^3/uL (1.0-4.8); LYMPH % 29 % (24-48); MEAN CORPUSCULAR HEMOGLOBIN 30 pg (25-35); MEAN CORPUSCULAR HGB CONC 33 g/dL (31-37); MEAN CORPUSCULAR VOLUME 90 fL (79-100); MONO # 1.1 x10^3/uL (0.0-1.1); MONO % 9 % (0-9); NEUT % 57 % (31-73); PLATELET COUNT 485 x10^3/uL (140-400); RED BLOOD COUNT 3.91 x10^6/uL (3.50-5.40); RED CELL DISTRIBUTION WIDTH 14.5 % (11.5-14.5); WHITE BLOOD COUNT 12.3 x10^3/uL (4.0-11.0)
--- NOTE | 2016-08-15 08:18 | NUR ---
Behavior Intervention Response and Plan: BIRP Note: Behavior: Assumed Care of patient, patient located in Dining Room at shift change. Patient exhibited the following behavior Disorganized, Calm, . Brief assessment on rounds of vital signs, medication needs, lab studies, and pain. Treatment plan problems . Intervention: Patient assessed and the following interventions initiated safety checks 15 Minute Checks Cognitive Assessment , Head to toe Assessment , Medications. Response: After interactions and interventions patient responded in the following manner, Compliant , Disorganized ,Drowsy. Continue to assess behaviors and condition will continue to monitor throughout the shift as needed. Plan: Continue to monitor Master Treatment Plan for patient's progress toward short term goals of Decreased Agitation, Decreased Aggression, residential goals to return to previous living setting vs placement. Continue to assess patient for changes in above assessment. Monitor for medication needs, pain, and safety concerns. Hourly rounding performed to ensure safe environment.
[2016-08-15 08:23] LABS: ALBUMIN/GLOBULIN RATIO 0.7 (1.0-1.7); CALCIUM 8.9 mg/dL (8.5-10.1); CREATININE 0.8 mg/dL (0.6-1.0); GFR 70.7; POTASSIUM 4.5 mmol/L (3.5-5.1); TOTAL BILIRUBIN 0.3 mg/dL (0.2-1.0); TOTAL PROTEIN 7.5 g/dL (6.4-8.2)
[2016-08-15] MEDS: LORazepam 2 MG/ML VIAL IM SCH (12:19)
[2016-08-15] MEDS: HALOPERIDOL LACT 5 MG/ML VIAL. IM SCH (12:19)
[2016-08-15] MEDS: CHOLECALCIFEROL (VITAMIN D3) 1,000 UNIT TABLET PO SCH ×2 (12:19→16:45)
--- NOTE | 2016-08-15 15:39 | NUR ---
pt up adl to meals. has been wandering in halls. compliant with meds and cares. tolerated IM injections well.
[2016-08-15 16:03] VITALS: BP 137/74
--- NOTE | 2016-08-15 18:51 | PN ---
DATE: 08/14/2016 PSYCHIATRIC PROGRESS NOTE This is late entry of 08/14/2016, covers elements not covered in my initial note. SUBJECTIVE: Per nursing report, the patient had a better day. She slept 8 hours. Labs will be drawn in the morning. She has been started on Haldol Decanoate 100 mg every 30 days and within a day or two, we will attempt to stop the daily intramuscular Haldol and reduce some of her other psychotropics depending on her progress. REVIEW OF SYSTEMS: No CV, , pulmonary, eye, ENT system symptoms on review. Reliability poor. MENTAL STATUS EXAMINATION: Oriented to herself. Insight, judgment, recent and remote memory, attention, concentration, fund of knowledge poor, consistent with her diagnosis mentioned in my initial note. PLAN: Continue psychotropics mentioned in my initial note including Haldol decanoate and other change as noted above. MAN Quinten BHATT MD DR: ALICIA/shanon JOB#: [id number] / [id number]
--- NOTE | 2016-08-15 18:59 | PDOC ---
Exam Yaya Demential Exam: Yaya Note: Please also refer to the separate dictated note~for this date of service dictated separately.~Patient seen individually. Discussed the patient with Nursing staff reviewed the chart.~Reviewed interim history and current functioning. Reviewed vital signs,~Labs/ Radiology~and current medications noted below. Continue current treatment with the changes noted in the dictated addendum note Assessment: Vital Signs: Vital Signs Date Time Temp Pulse Resp B/P (MAP) Pulse Ox O2 Delivery O2 Flow Rate FiO2 08/15/16 16:03 97.5 88 18 137/74 (95) 96 08/10/16 19:00 Room Air I&O Intake and Output 08/15/16 07:00 Intake Total 720 ml Balance 720 ml Intake Oral 720 ml # Voids 1 Labs: Laboratory Tests Test 08/15/16 07:40 White Blood Count 12.3 x10^3/uL (4.0-11.0) H Red Blood Count 3.91 x10^6/uL (3.50-5.40) Hemoglobin 11.6 g/dL (12.0-15.5) L Hematocrit 35.3 % (36.0-47.0) L Mean Corpuscular Volume 90 fL (79-100) Mean Corpuscular Hemoglobin 30 pg (25-35) Mean Corpuscular Hemoglobin Concent 33 g/dL (31-37) Red Cell Distribution Width 14.5 % (11.5-14.5) Platelet Count 485 x10^3/uL (140-400) H Neutrophils (%) (Auto) 57 % (31-73) Lymphocytes (%) (Auto) 29 % (24-48) Monocytes (%) (Auto) 9 % (0-9) Eosinophils (%) (Auto) 4 % (0-3) H Basophils (%) (Auto) 1 % (0-3) Neutrophils # (Auto) 7.0 x10^3uL (1.8-7.7) Lymphocytes # (Auto) 3.6 x10^3/uL (1.0-4.8) Monocytes # (Auto) 1.1 x10^3/uL (0.0-1.1) Eosinophils # (Auto) 0.5 x10^3/uL (0.0-0.7) Basophils # (Auto) 0.1 x10^3/uL (0.0-0.2) Sodium Level 143 mmol/L (136-145) Potassium Level 4.5 mmol/L (3.5-5.1) Chloride Level 106 mmol/L (98-107) Carbon Dioxide Level 30 mmol/L (21-32) Anion Gap 7 (6-14) Blood Urea Nitrogen 16 mg/dL (7-20) Creatinine 0.8 mg/dL (0.6-1.0) Estimated GFR (Cockcroft-Gault) 70.7 BUN/Creatinine Ratio 20 (6-20) Glucose Level 78 mg/dL (70-99) Calcium Level 8.9 mg/dL (8.5-10.1) Magnesium Level 1.9 mg/dL (1.8-2.4) Total Bilirubin 0.3 mg/dL (0.2-1.0) Aspartate Amino Transferase (AST) 14 U/L (15-37) L Alanine Aminotransferase (ALT) 24 U/L (14-59) Alkaline Phosphatase 94 U/L (46-116) Total Protein 7.5 g/dL (6.4-8.2) Albumin 3.0 g/dL (3.4-5.0) L Albumin/Globulin Ratio 0.7 (1.0-1.7) L Current Medications: Meds: Current Medications Diphenhydramine HCl (Benadryl) 25 mg Q6HRS PO ; Start 07/01/16 at 18:00; Stop at 18:00; Status DC Hydroxyzine HCl (Atarax) 25 mg PRN Q6HRS PRN PO ITCHING Last administered on 01:19; Start 07/01/16 at 15:15; Stop 07/06/16 at 04:21; Status DC Lisinopril (Prinivil) 20 mg DAILY PO Last administered on 08/15/16 07:12; Start 07/02/16 at 09:00 Lorazepam (Ativan) 0.5 mg PRN Q4HRS PRN PO ANXIETY / AGITATION Last administered on 07/02/16 21:07; Start 07/01/16 at 15:15; Stop 07/02/16 at 21:44 ; Status DC Nicotine (Nicoderm Cq 21mg) 1 patch DAILY TD Last administered on 08/15/16 07: 14; Start 07/02/16 at 09:00 Lorazepam (Ativan) 0.5 mg PRN Q4HRS PRN IV ANXIETY / AGITATION; Start 07/01/16 at 15:15; Stop 07/01/16 at 19:14; Status DC Diphenhydramine HCl (Benadryl) 25 mg PRN Q6HRS PRN IVP ITCHING; Start 07/01/16 at 15:15; Stop 07/01/16 at 19:14; Status DC Haloperidol Lactate (Haldol) 5 mg PRN Q6HRS PRN IM AGITATION; Start 07/01/16 at 15:15; Stop 07/01/16 at 19:14; Status DC Diphenhydramine HCl (Benadryl) 25 mg PRN Q6HRS PRN PO ITCHING Last administered on 07/01/16 20:56; Start 07/01/16 at 18:00 Acetaminophen/ Hydrocodone Bitart (Lortab 5/325) 1 tab PRN BID PRN PO PAIN Last administered on 08/06/16 13:12; Start 07/02/16 at 21:45 Olanzapine (Zyprexa Zydis) 2.5 mg PRN Q2HR PRN PO PSYCHOSIS Last administered on 08/14/16 16:41; Start 07/02/16 at 21:45 Mirtazapine (Remeron) 15 mg QHS PO Last administered on 08/14/16 19:26; Start 07/03/16 at 21:00 Citalopram Hydrobromide (Celexa) 10 mg DAILY PO Last administered on 08/15/16 07:12; Start 07/03/16 at 09:00 Risperidone (Risperdal) 0.25 mg BID PO Last administered on 07/10/16 08:54; Start 07/03/16 at 21:00; Stop 07/10/16 at 15:18; Status DC Docusate Calcium (Surfak) 240 mg DAILY PO Last administered on 08/15/16 07:12; Start 07/04/16 at 21:00 Magnesium Hydroxide (Milk Of Magnesia) 2,400 mg PRN QHS PRN PO CONSTIPATION; Start 07/04/16 at 18:15 Trazodone HCl (Desyrel) 50 mg QHS PO Last administered on 07/14/16 20:10; Start 07/05/16 at 21:00; Stop 07/15/16 at 13:52; Status DC Trazodone HCl (Desyrel) 50 mg PRN QHS PRN PO INSOMNIA Last administered on 21:27; Start 07/05/16 at 20:45; Stop 07/15/16 at 13:52; Status DC Hydroxyzine HCl (Atarax) 50 mg PRN Q2HR PRN PO Psychosis Last administered on 15:54; Start 07/06/16 at 04:30 Fentanyl (Duragesic 12mcg/ Hr) 1 patch Q3DAYS TD Last administered on 08/13/16 08:08; Start 07/08/16 at 18:30 Risperidone (Risperdal) 0.25 mg TID PO Last administered on 07/24/16 13:20; Start 07/10/16 at 21:00; Stop 07/24/16 at 18:29; Status DC Buspirone HCl (Buspar) 5 mg TID PO Last administered on 07/13/16 12:28; Start 07/10/16 at 21:00; Stop 07/13/16 at 15:32; Status DC Buspirone HCl (Buspar) 10 mg BID PO Last administered on 07/27/16 09:32; Start 07/13/16 at 21:00; Stop 07/27/16 at 18:29; Status DC Divalproex Sodium (Depakote Sprinkles) 125 mg BID PO Last administered on 07:46; Start 07/13/16 at 21:00; Stop 07/19/16 at 11:49; Status DC Vitamin D (Vitamin D3) 2,000 unit BIDPCLD PO Last administered on 08/15/16 16: 45; Start 07/14/16 at 12:30 Trazodone HCl (Desyrel) 100 mg QHS PO Last administered on 08/14/16 19:26; Start 07/15/16 at 21:00 Trazodone HCl (Desyrel) 100 mg PRN QHS PO ; Start 07/15/16 at 13:45; Stop at 23:01; Status DC Trazodone HCl (Desyrel) 100 mg PRN QHS PRN PO INSOMNIA Last administered on 00:53; Start 07/15/16 at 23:00 Quetiapine Fumarate (SEROquel) 50 mg 1X ONCE PO Last administered on 07/16/16 00:44; Start 07/16/16 at 00:30; Stop 07/16/16 at 00:31; Status DC Temazepam (Restoril) 30 mg PRN QHS PRN PO INSOMNIA Last administered on 19:04; Start 07/16/16 at 18:30; Stop 08/09/16 at 18:24; Status DC Divalproex Sodium (Depakote Sprinkles) 250 mg BID PO Last administered on 12:20; Start 07/19/16 at 21:00; Stop 07/22/16 at 18:23; Status DC Acetaminophen (Tylenol) 650 mg PRN Q6HRS PRN PO PAIN / TEMP Last administered on 08/09/16 16:38; Start 07/22/16 at 15:30 Divalproex Sodium (Depakote Sprinkles) 375 mg BID PO Last administered on 08:58; Start 07/22/16 at 21:00; Stop 08/04/16 at 17:56; Status DC Melatonin 6 mg QHS PO Last administered on 08/14/16 19:27; Start 07/22/16 at 21 :00 Risperidone (Risperdal) 0.25 mg QID PO Last administered on 08/15/16 16:45; Start 07/24/16 at 21:00 Lorazepam (Ativan) 1 mg DAILY IM ; Start 07/27/16 at 09:00; Stop 07/27/16 at 09: 00; Status DC Lorazepam (Ativan) 1 mg 14 IM Last administered on 07/28/16 13:47; Start 07/26 at 15:00; Stop 07/29/16 at 14:13; Status DC Haloperidol Lactate (Haldol) 5 mg 1X ONCE IM Last administered on 07/27/16 16 :15; Start 07/27/16 at 16:15; Stop 07/27/16 at 16:16; Status DC Haloperidol Lactate (Haldol) 5 mg 14 IM Last administered on 07/28/16 13:46; Start 07/28/16 at 14:00; Stop 07/29/16 at 14:13; Status DC Buspirone HCl (Buspar) 10 mg TID PO Last administered on 08/04/16 08:58; Start 07/27/16 at 21:00; Stop 08/04/16 at 17:56; Status DC Trazodone HCl (Desyrel) 12.5 mg TIDWMEALS PO Last administered on 08/03/16 11: 58; Start 07/28/16 at 08:00; Stop 08/03/16 at 13:40; Status DC Fosfomycin Tromethamine (Monurol) 3 gm 1X ONCE PO Last administered on 06:27; Start 07/29/16 at 06:30; Stop 07/29/16 at 06:32; Status DC Trazodone HCl (Desyrel) 25 mg TIDWMEALS PO Last administered on 08/06/16 07:54 ; Start 08/03/16 at 17:00; Stop 08/06/16 at 11:24; Status DC Buspirone HCl (Buspar) 10 mg QID PO Last administered on 08/15/16 16:45; Start 08/04/16 at 21:00 Haloperidol Lactate (Haldol) 5 mg AFTRNOON IM Last administered on 08/15/16 12: 19; Start 08/05/16 at 13:15 Lorazepam (Ativan) 0.5 mg AFTRNOON IM Last administered on 08/15/16 12:19; Start 08/05/16 at 13:15 Oxcarbazepine (Trileptal) 300 mg BID PO Last administered on 08/11/16 09:48; Start 08/06/16 at 21:00; Stop 08/11/16 at 18:43; Status DC Trazodone HCl (Desyrel) 50 mg BID PO Last administered on 08/15/16 07:12; Start 08/06/16 at 21:00 Trazodone HCl (Desyrel) 50 mg 14 PO Last administered on 08/15/16 12:20; Start 08/06/16 at 14:00 Temazepam (Restoril) 15 mg PRN QHS PRN PO INSOMNIA Last administered on 19:28; Start 08/09/16 at 18:30 Oxcarbazepine (Trileptal) 300 mg TID PO Last administered on 08/15/16 12:20; Start 08/11/16 at 21:00 Haloperidol Decanoate (Haldol Decanoate Im Extended Release) 100 mg QMONTH IM Last administered on 08/13/16 21:04; Start 08/13/16 at 21:00 Active Scripts Active Lisinopril 20 Mg Tablet 1 Tab PO DAILY NICODERM CQ 21mg (Nicotine) 1 Each Patch.td24 1 Patch TP DAILY Lorazepam 0.5 Mg Tablet 1 Tab PO Q4HRS PRN Hydroxyzine Hcl 25 Mg Tablet 1 Tab PO Q6HRS PRN Benadryl (Diphenhydramine Hcl) 25 Mg Capsule 1 Cap PO Q6HRS Diagnosis: Problems: (1) Anxiety disorder (2) Impulse control disorder (3) Dementia, vascular, with delusions (4) Dementia, vascular, with depression (5) Dementia in Alzheimer's disease with delusions (6) Dementia in Alzheimer's disease with depression CAITLYN BHATT MD August 15, 2016 18:59
[2016-08-15] MEDS: MELATONIN 3 MG TABLET PO SCH (20:00)
[2016-08-15] MEDS: MIRTAZAPINE 15 MG TABLET PO SCH (20:01)
[2016-08-15] MEDS: traZODone 100 MG TABLET. PO SCH (20:02)
--- NOTE | 2016-08-15 22:30 | NUR ---
Behavior Intervention Response and Plan: BIRP Note: Behavior: Assumed Care of patient, patient located in Hallway at shift change. Patient exhibited the following behavior Wandering, Cooperative, Able to Focus on Task. Brief assessment on rounds of vital signs, medication needs, lab studies, and pain. Treatment plan problems:1-2 Intervention: Patient assessed and the following interventions initiated safety checks 15 Minute Checks Cognitive Assessment , Head to toe Assessment , Medications. Response: After interactions and interventions patient responded in the following manner, Calm , Able to Focus on Task ,Drowsy. Continue to assess behaviors and condition will continue to monitor throughout the shift as needed. 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 Continue to assess patient for changes in above assessment. Monitor for medication needs, pain, and safety concerns. Hourly rounding performed to ensure safe environment.
[2016-08-16 06:26] VITALS: BP 133/79
[2016-08-16] MEDS: traZODone 50 MG TABLET. PO SCH ×3 (07:59→19:39)
[2016-08-16] MEDS: busPIRone 10 MG TABLET. PO SCH ×4 (07:59→19:38)
[2016-08-16] MEDS: CITALOPRAM 10 MG TABLET. PO SCH (07:59)
[2016-08-16] MEDS: LISINOPRIL 20 MG TABLET PO SCH (07:59)
[2016-08-16] MEDS: risperiDONE 0.25 MG TABLET. PO SCH ×4 (07:59→19:38)
[2016-08-16] MEDS: DOCUSATE CALCIUM 240 MG CAPSULE PO SCH (07:59)
[2016-08-16] MEDS: NICOTINE 21MG PATCH. TD SCH (08:00)
[2016-08-16] MEDS: fentaNYL 12MCG/HR 1 PATCH PATCH TD SCH (08:04)
--- NOTE | 2016-08-16 09:16 | NUR ---
Behavior Intervention Response and Plan: BIRP Note: Behavior: Assumed Care of patient, patient located in Dining Room at shift change. Patient exhibited the following behavior Disorganized, Calm, . Brief assessment on rounds of vital signs, medication needs, lab studies, and pain. Treatment plan problems . Intervention: Patient assessed and the following interventions initiated safety checks 15 Minute Checks Cognitive Assessment , Head to toe Assessment , Medications. Response: After interactions and interventions patient responded in the following manner, Compliant , Disorganized ,Drowsy. Continue to assess behaviors and condition will continue to monitor throughout the shift as needed. Plan: Continue to monitor Master Treatment Plan for patient's progress toward short term goals of Decreased Agitation, Decreased Aggression, assisted goals to return to previous living setting vs placement. Continue to assess patient for changes in above assessment. Monitor for medication needs, pain, and safety concerns. Hourly rounding performed to ensure safe environment.
[2016-08-16] MEDS: LORazepam 2 MG/ML VIAL IM SCH (13:00)
[2016-08-16] MEDS: HALOPERIDOL LACT 5 MG/ML VIAL. IM SCH (13:00)
[2016-08-16] MEDS: CHOLECALCIFEROL (VITAMIN D3) 1,000 UNIT TABLET PO SCH ×2 (13:05→18:23)
[2016-08-16 15:34] VITALS: BP 124/72
--- NOTE | 2016-08-16 15:49 | NUR ---
pt up adl in halls and out to day room. compliant with meds and cares, including IM's. asked where her home was. showed her to room. said she lived in a house. told pt she was in hosp. asked what she was here for. pt told she was here to find out what is wrong with her. Pt stated " I don't think they will ever find out what the F--- is wrong with me."
--- NOTE | 2016-08-16 19:37 | PDOC ---
Exam Yaya Demential Exam: Yaya Note: Please also refer to the separate dictated note~for this date of service dictated separately.~Patient seen individually. Discussed the patient with Nursing staff reviewed the chart.~Reviewed interim history and current functioning. Reviewed vital signs,~Labs/ Radiology~and current medications noted below. Continue current treatment with the changes noted in the dictated addendum note Assessment: Vital Signs: Vital Signs Date Time Temp Pulse Resp B/P (MAP) Pulse Ox O2 Delivery O2 Flow Rate FiO2 08/16/16 15:34 97.4 63 18 124/72 (89) 94 08/10/16 19:00 Room Air I&O Intake and Output 08/16/16 07:00 Intake Total 720 ml Balance 720 ml Intake Oral 720 ml # Voids 1 Current Medications: Meds: Current Medications Diphenhydramine HCl (Benadryl) 25 mg Q6HRS PO ; Start 07/01/16 at 18:00; Stop at 18:00; Status DC Hydroxyzine HCl (Atarax) 25 mg PRN Q6HRS PRN PO ITCHING Last administered on 01:19; Start 07/01/16 at 15:15; Stop 07/06/16 at 04:21; Status DC Lisinopril (Prinivil) 20 mg DAILY PO Last administered on 08/16/16 07:59; Start 07/02/16 at 09:00 Lorazepam (Ativan) 0.5 mg PRN Q4HRS PRN PO ANXIETY / AGITATION Last administered on 07/02/16 21:07; Start 07/01/16 at 15:15; Stop 07/02/16 at 21:44 ; Status DC Nicotine (Nicoderm Cq 21mg) 1 patch DAILY TD Last administered on 08/16/16 08: 00; Start 07/02/16 at 09:00 Lorazepam (Ativan) 0.5 mg PRN Q4HRS PRN IV ANXIETY / AGITATION; Start 07/01/16 at 15:15; Stop 07/01/16 at 19:14; Status DC Diphenhydramine HCl (Benadryl) 25 mg PRN Q6HRS PRN IVP ITCHING; Start 07/01/16 at 15:15; Stop 07/01/16 at 19:14; Status DC Haloperidol Lactate (Haldol) 5 mg PRN Q6HRS PRN IM AGITATION; Start 07/01/16 at 15:15; Stop 07/01/16 at 19:14; Status DC Diphenhydramine HCl (Benadryl) 25 mg PRN Q6HRS PRN PO ITCHING Last administered on 07/01/16 20:56; Start 07/01/16 at 18:00 Acetaminophen/ Hydrocodone Bitart (Lortab 5/325) 1 tab PRN BID PRN PO PAIN Last administered on 08/06/16 13:12; Start 07/02/16 at 21:45 Olanzapine (Zyprexa Zydis) 2.5 mg PRN Q2HR PRN PO PSYCHOSIS Last administered on 08/14/16 16:41; Start 07/02/16 at 21:45 Mirtazapine (Remeron) 15 mg QHS PO Last administered on 08/15/16 20:01; Start 07/03/16 at 21:00 Citalopram Hydrobromide (Celexa) 10 mg DAILY PO Last administered on 08/16/16 07:59; Start 07/03/16 at 09:00 Risperidone (Risperdal) 0.25 mg BID PO Last administered on 07/10/16 08:54; Start 07/03/16 at 21:00; Stop 07/10/16 at 15:18; Status DC Docusate Calcium (Surfak) 240 mg DAILY PO Last administered on 08/16/16 07:59; Start 07/04/16 at 21:00 Magnesium Hydroxide (Milk Of Magnesia) 2,400 mg PRN QHS PRN PO CONSTIPATION; Start 07/04/16 at 18:15 Trazodone HCl (Desyrel) 50 mg QHS PO Last administered on 07/14/16 20:10; Start 07/05/16 at 21:00; Stop 07/15/16 at 13:52; Status DC Trazodone HCl (Desyrel) 50 mg PRN QHS PRN PO INSOMNIA Last administered on 21:27; Start 07/05/16 at 20:45; Stop 07/15/16 at 13:52; Status DC Hydroxyzine HCl (Atarax) 50 mg PRN Q2HR PRN PO Psychosis Last administered on 15:54; Start 07/06/16 at 04:30 Fentanyl (Duragesic 12mcg/ Hr) 1 patch Q3DAYS TD Last administered on 08/16/16 08:04; Start 07/08/16 at 18:30 Risperidone (Risperdal) 0.25 mg TID PO Last administered on 07/24/16 13:20; Start 07/10/16 at 21:00; Stop 07/24/16 at 18:29; Status DC Buspirone HCl (Buspar) 5 mg TID PO Last administered on 07/13/16 12:28; Start 07/10/16 at 21:00; Stop 07/13/16 at 15:32; Status DC Buspirone HCl (Buspar) 10 mg BID PO Last administered on 07/27/16 09:32; Start 07/13/16 at 21:00; Stop 07/27/16 at 18:29; Status DC Divalproex Sodium (Depakote Sprinkles) 125 mg BID PO Last administered on 07:46; Start 07/13/16 at 21:00; Stop 07/19/16 at 11:49; Status DC Vitamin D (Vitamin D3) 2,000 unit BIDPCLD PO Last administered on 08/16/16 18: 23; Start 07/14/16 at 12:30 Trazodone HCl (Desyrel) 100 mg QHS PO Last administered on 08/15/16 20:02; Start 07/15/16 at 21:00 Trazodone HCl (Desyrel) 100 mg PRN QHS PO ; Start 07/15/16 at 13:45; Stop at 23:01; Status DC Trazodone HCl (Desyrel) 100 mg PRN QHS PRN PO INSOMNIA Last administered on 00:53; Start 07/15/16 at 23:00 Quetiapine Fumarate (SEROquel) 50 mg 1X ONCE PO Last administered on 07/16/16 00:44; Start 07/16/16 at 00:30; Stop 07/16/16 at 00:31; Status DC Temazepam (Restoril) 30 mg PRN QHS PRN PO INSOMNIA Last administered on 19:04; Start 07/16/16 at 18:30; Stop 08/09/16 at 18:24; Status DC Divalproex Sodium (Depakote Sprinkles) 250 mg BID PO Last administered on 12:20; Start 07/19/16 at 21:00; Stop 07/22/16 at 18:23; Status DC Acetaminophen (Tylenol) 650 mg PRN Q6HRS PRN PO PAIN / TEMP Last administered on 08/09/16 16:38; Start 07/22/16 at 15:30 Divalproex Sodium (Depakote Sprinkles) 375 mg BID PO Last administered on 08:58; Start 07/22/16 at 21:00; Stop 08/04/16 at 17:56; Status DC Melatonin 6 mg QHS PO Last administered on 08/15/16 20:00; Start 07/22/16 at 21 :00 Risperidone (Risperdal) 0.25 mg QID PO Last administered on 08/16/16 18:23; Start 07/24/16 at 21:00 Lorazepam (Ativan) 1 mg DAILY IM ; Start 07/27/16 at 09:00; Stop 07/27/16 at 09: 00; Status DC Lorazepam (Ativan) 1 mg 14 IM Last administered on 07/28/16 13:47; Start 07/26 at 15:00; Stop 07/29/16 at 14:13; Status DC Haloperidol Lactate (Haldol) 5 mg 1X ONCE IM Last administered on 07/27/16 16 :15; Start 07/27/16 at 16:15; Stop 07/27/16 at 16:16; Status DC Haloperidol Lactate (Haldol) 5 mg 14 IM Last administered on 07/28/16 13:46; Start 07/28/16 at 14:00; Stop 07/29/16 at 14:13; Status DC Buspirone HCl (Buspar) 10 mg TID PO Last administered on 08/04/16 08:58; Start 07/27/16 at 21:00; Stop 08/04/16 at 17:56; Status DC Trazodone HCl (Desyrel) 12.5 mg TIDWMEALS PO Last administered on 08/03/16 11: 58; Start 07/28/16 at 08:00; Stop 08/03/16 at 13:40; Status DC Fosfomycin Tromethamine (Monurol) 3 gm 1X ONCE PO Last administered on 06:27; Start 07/29/16 at 06:30; Stop 07/29/16 at 06:32; Status DC Trazodone HCl (Desyrel) 25 mg TIDWMEALS PO Last administered on 08/06/16 07:54 ; Start 08/03/16 at 17:00; Stop 08/06/16 at 11:24; Status DC Buspirone HCl (Buspar) 10 mg QID PO Last administered on 08/16/16 18:23; Start 08/04/16 at 21:00 Haloperidol Lactate (Haldol) 5 mg AFTRNOON IM Last administered on 08/16/16 13: 00; Start 08/05/16 at 13:15 Lorazepam (Ativan) 0.5 mg AFTRNOON IM Last administered on 08/16/16 13:00; Start 08/05/16 at 13:15 Oxcarbazepine (Trileptal) 300 mg BID PO Last administered on 08/11/16 09:48; Start 08/06/16 at 21:00; Stop 08/11/16 at 18:43; Status DC Trazodone HCl (Desyrel) 50 mg BID PO Last administered on 08/16/16 07:59; Start 08/06/16 at 21:00 Trazodone HCl (Desyrel) 50 mg 14 PO Last administered on 08/16/16 13:05; Start 08/06/16 at 14:00 Temazepam (Restoril) 15 mg PRN QHS PRN PO INSOMNIA Last administered on 19:28; Start 08/09/16 at 18:30 Oxcarbazepine (Trileptal) 300 mg TID PO Last administered on 08/16/16 13:05; Start 08/11/16 at 21:00 Haloperidol Decanoate (Haldol Decanoate Im Extended Release) 100 mg QMONTH IM Last administered on 5/4/17at 21:04; Start 08/13/16 at 21:00 Active Scripts Active Lisinopril 20 Mg Tablet 1 Tab PO DAILY NICODERM CQ 21mg (Nicotine) 1 Each Patch.td24 1 Patch TP DAILY Lorazepam 0.5 Mg Tablet 1 Tab PO Q4HRS PRN Hydroxyzine Hcl 25 Mg Tablet 1 Tab PO Q6HRS PRN Benadryl (Diphenhydramine Hcl) 25 Mg Capsule 1 Cap PO Q6HRS Diagnosis: Problems: (1) Encounter for psychological evaluation (2) Anxiety disorder (3) Impulse control disorder (4) Dementia, vascular, with delusions (5) Dementia, vascular, with depression (6) Dementia in Alzheimer's disease with delusions (7) Dementia in Alzheimer's disease with depression CAITLYN BHATT MD August 16, 2016 19:37
[2016-08-16] MEDS: MIRTAZAPINE 15 MG TABLET PO SCH (19:38)
[2016-08-16] MEDS: traZODone 100 MG TABLET. PO SCH (19:38)
[2016-08-16] MEDS: MELATONIN 3 MG TABLET PO SCH (19:38)
--- NOTE | 2016-08-16 23:25 | NUR ---
Behavior Intervention Response and Plan: BIRP Note: Behavior: Assumed Care of patient, patient located in Day Room at shift change. Patient exhibited the following behavior Restless, Disorganized, Non Compliant. Brief assessment on rounds of vital signs, medication needs, lab studies, and pain. Treatment plan problems:1-2 Intervention: Patient assessed and the following interventions initiated safety checks 15 Minute Checks Cognitive Assessment , Head to toe Assessment , Medications. Response: After interactions and interventions patient responded in the following manner, Disorganized , Non Compliant with Meds ,Delusions. Continue to assess behaviors and condition will continue to monitor throughout the shift as needed. 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 Continue to assess patient for changes in above assessment. Monitor for medication needs, pain, and safety concerns. Hourly rounding performed to ensure safe environment.
--- NOTE | 2016-08-16 23:42 | PN ---
DATE: 08/15/2016 PSYCHIATRIC PROGRESS NOTE This is a late entry of 08/15/2016 covers elements not covered in my initial note. SUBJECTIVE: The patient slept 7-3/4 hours previous night, received Restoril at 2100 which was helpful. She is wandering, calm, and cooperative. REVIEW OF SYSTEMS: No CV, , pulmonary, eye, ENT system symptoms on review. Reliability poor. MENTAL STATUS EXAM: Oriented to herself. Insight, judgment, recent and remote memory, attention, concentration, fund of knowledge poor, consistent with her diagnosis mentioned in her initial note. PLAN: Continue current psychotropics including Haldol Decanoate. Adjust further as clinically indicated. MAN Quinten BHATT MD DR: ALICIA/shanon JOB#: [id number] / [id number]
[2016-08-17 06:34] VITALS: BP 129/79
[2016-08-17] MEDS: traZODone 50 MG TABLET. PO SCH ×3 (08:56→19:32)
[2016-08-17] MEDS: DOCUSATE CALCIUM 240 MG CAPSULE PO SCH ×2 (08:56→09:00)
[2016-08-17] MEDS: LISINOPRIL 20 MG TABLET PO SCH (08:57)
[2016-08-17] MEDS: busPIRone 10 MG TABLET. PO SCH ×4 (08:57→19:32)
[2016-08-17] MEDS: CITALOPRAM 10 MG TABLET. PO SCH (08:57)
[2016-08-17] MEDS: NICOTINE 21MG PATCH. TD SCH (08:57)
[2016-08-17] MEDS: risperiDONE 0.25 MG TABLET. PO SCH ×4 (08:57→19:32)
--- NOTE | 2016-08-17 09:20 | NUR ---
Behavior Intervention Response and Plan: BIRP Note: Behavior: Assumed Care of patient, patient located in Day Room at shift change. Patient exhibited the following behavior Disorganized, Non Compliant, Delusions. Brief assessment on rounds of vital signs, medication needs, lab studies, and pain. Treatment plan problems 1 & 2. Intervention: Patient assessed and the following interventions initiated safety checks 15 Minute Checks Cognitive Assessment , Head to toe Assessment , Medications. Response: After interactions and interventions patient responded in the following manner, Calm , Appropriate ,Compliant. Continue to assess behaviors and condition will continue to monitor throughout the shift as needed. 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 Continue to assess patient for changes in above assessment. Monitor for medication needs, pain, and safety concerns. Hourly rounding performed to ensure safe environment.
--- NOTE | 2016-08-17 09:30 | NUR ---
Attempted to provide patient with morning meds, she refused to take them but would not give them back to me. She states that she will take them when she is ready for bed. Informed her it was morning, she insisted on holding on to her meds but not taking them. Two Surinder assisted in removing the pills from her hand. Attempted to hide them in food with prns, but the ice cream cup was accidentally thrown away. Will pull meds again and attempt to re-administer them.
[2016-08-17] MEDS: hydrOXYzine HCL 25 MG TABLET PO PRN (10:22)
--- NOTE | 2016-08-17 11:30 | PN ---
DATE: 08/16/2016 PSYCHIATRIC PROGRESS NOTE This is late entry of 08/16/2016, covers elements not covered in my initial note. SUBJECTIVE: The patient has done better on 08/16/2016. After lunch, she was banging the doors, but is ambulating on her own and I assessed her for extrapyramidal symptoms, none were evident. She is not speaking in Maori, which she does when she gets more psychotic and confused. REVIEW OF SYSTEMS: No CV, , pulmonary, eye, ENT system symptoms on review. Reliability poor. MENTAL STATUS EXAMINATION: Oriented to herself. Insight, judgment, recent and remote memory, attention, concentration, fund of knowledge poor, consistent with her diagnosis mentioned in my initial note. PLAN: Continue current psychotropics including the intramuscular Haldol, Ativan and we might have to stop this once the Haldol Decanoate is ineffective. Make further adjustments as clinically indicated. CAITLYN BHATT MD DR: ALICIA/shanon JOB#: [id number] / [id number]
--- NOTE | 2016-08-17 11:30 | NUR ---
Patient is wandering the hallways, looking for her pet dogs. Will continue to monitor behaviours.
[2016-08-17] MEDS: CHOLECALCIFEROL (VITAMIN D3) 1,000 UNIT TABLET PO SCH ×3 (12:04→17:19)
--- NOTE | 2016-08-17 13:30 | NUR ---
Patient wandering halls, looking for Edgar and speaking rapid Albanian. Scheduled meds provided, will continue to monitor behaviours.
[2016-08-17] MEDS: HALOPERIDOL LACT 5 MG/ML VIAL. IM SCH (13:36)
[2016-08-17] MEDS: LORazepam 2 MG/ML VIAL IM SCH (13:36)
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
[2016-08-17 15:59] VITALS: BP 150/97
[2016-08-17] MEDS: traZODone 100 MG TABLET. PO SCH (19:32)
[2016-08-17] MEDS: MELATONIN 3 MG TABLET PO SCH (19:32)
[2016-08-17] MEDS: MIRTAZAPINE 15 MG TABLET PO SCH (19:32)
--- NOTE | 2016-08-17 19:50 | PDOC ---
Exam Yaya Demential Exam: Yaya Note: Please also refer to the separate dictated note~for this date of service dictated separately.~Patient seen individually. Discussed the patient with Nursing staff reviewed the chart.~Reviewed interim history and current functioning. Reviewed vital signs,~Labs/ Radiology~and current medications noted below. Continue current treatment with the changes noted in the dictated addendum note Assessment: Vital Signs: Vital Signs Date Time Temp Pulse Resp B/P (MAP) Pulse Ox O2 Delivery O2 Flow Rate FiO2 08/17/16 15:59 97.9 64 16 150/97 (114) 95 I&O Intake and Output 08/17/16 07:00 Intake Total 600 ml Balance 600 ml Intake Oral 600 ml Current Medications: Meds: Current Medications Diphenhydramine HCl (Benadryl) 25 mg Q6HRS PO ; Start 07/01/16 at 18:00; Stop at 18:00; Status DC Hydroxyzine HCl (Atarax) 25 mg PRN Q6HRS PRN PO ITCHING Last administered on 01:19; Start 07/01/16 at 15:15; Stop 07/06/16 at 04:21; Status DC Lisinopril (Prinivil) 20 mg DAILY PO Last administered on 08/17/16 08:57; Start 07/02/16 at 09:00 Lorazepam (Ativan) 0.5 mg PRN Q4HRS PRN PO ANXIETY / AGITATION Last administered on 07/02/16 21:07; Start 07/01/16 at 15:15; Stop 07/02/16 at 21:44 ; Status DC Nicotine (Nicoderm Cq 21mg) 1 patch DAILY TD Last administered on 08/17/16 08: 57; Start 07/02/16 at 09:00 Lorazepam (Ativan) 0.5 mg PRN Q4HRS PRN IV ANXIETY / AGITATION; Start 07/01/16 at 15:15; Stop 07/01/16 at 19:14; Status DC Diphenhydramine HCl (Benadryl) 25 mg PRN Q6HRS PRN IVP ITCHING; Start 07/01/16 at 15:15; Stop 07/01/16 at 19:14; Status DC Haloperidol Lactate (Haldol) 5 mg PRN Q6HRS PRN IM AGITATION; Start 07/01/16 at 15:15; Stop 07/01/16 at 19:14; Status DC Diphenhydramine HCl (Benadryl) 25 mg PRN Q6HRS PRN PO ITCHING Last administered on 07/01/16 20:56; Start 07/01/16 at 18:00 Acetaminophen/ Hydrocodone Bitart (Lortab 5/325) 1 tab PRN BID PRN PO PAIN Last administered on 08/06/16 13:12; Start 07/02/16 at 21:45 Olanzapine (Zyprexa Zydis) 2.5 mg PRN Q2HR PRN PO PSYCHOSIS Last administered on 08/17/16 10:22; Start 07/02/16 at 21:45 Mirtazapine (Remeron) 15 mg QHS PO Last administered on 08/17/16 19:32; Start 07/03/16 at 21:00 Citalopram Hydrobromide (Celexa) 10 mg DAILY PO Last administered on 08/17/16 08:57; Start 07/03/16 at 09:00 Risperidone (Risperdal) 0.25 mg BID PO Last administered on 07/10/16 08:54; Start 07/03/16 at 21:00; Stop 07/10/16 at 15:18; Status DC Docusate Calcium (Surfak) 240 mg DAILY PO Last administered on 08/16/16 07:59; Start 07/04/16 at 21:00 Magnesium Hydroxide (Milk Of Magnesia) 2,400 mg PRN QHS PRN PO CONSTIPATION; Start 07/04/16 at 18:15 Trazodone HCl (Desyrel) 50 mg QHS PO Last administered on 07/14/16 20:10; Start 07/05/16 at 21:00; Stop 07/15/16 at 13:52; Status DC Trazodone HCl (Desyrel) 50 mg PRN QHS PRN PO INSOMNIA Last administered on 21:27; Start 07/05/16 at 20:45; Stop 07/15/16 at 13:52; Status DC Hydroxyzine HCl (Atarax) 50 mg PRN Q2HR PRN PO Psychosis Last administered on 10:22; Start 07/06/16 at 04:30 Fentanyl (Duragesic 12mcg/ Hr) 1 patch Q3DAYS TD Last administered on 08/16/16 08:04; Start 07/08/16 at 18:30 Risperidone (Risperdal) 0.25 mg TID PO Last administered on 07/24/16 13:20; Start 07/10/16 at 21:00; Stop 07/24/16 at 18:29; Status DC Buspirone HCl (Buspar) 5 mg TID PO Last administered on 07/13/16 12:28; Start 07/10/16 at 21:00; Stop 07/13/16 at 15:32; Status DC Buspirone HCl (Buspar) 10 mg BID PO Last administered on 07/27/16 09:32; Start 07/13/16 at 21:00; Stop 07/27/16 at 18:29; Status DC Divalproex Sodium (Depakote Sprinkles) 125 mg BID PO Last administered on 07:46; Start 07/13/16 at 21:00; Stop 07/19/16 at 11:49; Status DC Vitamin D (Vitamin D3) 2,000 unit BIDPCLD PO Last administered on 08/17/16 17: 19; Start 07/14/16 at 12:30 Trazodone HCl (Desyrel) 100 mg QHS PO Last administered on 08/17/16 19:32; Start 07/15/16 at 21:00 Trazodone HCl (Desyrel) 100 mg PRN QHS PO ; Start 07/15/16 at 13:45; Stop at 23:01; Status DC Trazodone HCl (Desyrel) 100 mg PRN QHS PRN PO INSOMNIA Last administered on 00:53; Start 07/15/16 at 23:00 Quetiapine Fumarate (SEROquel) 50 mg 1X ONCE PO Last administered on 07/16/16 00:44; Start 07/16/16 at 00:30; Stop 07/16/16 at 00:31; Status DC Temazepam (Restoril) 30 mg PRN QHS PRN PO INSOMNIA Last administered on 19:04; Start 07/16/16 at 18:30; Stop 08/09/16 at 18:24; Status DC Divalproex Sodium (Depakote Sprinkles) 250 mg BID PO Last administered on 12:20; Start 07/19/16 at 21:00; Stop 07/22/16 at 18:23; Status DC Acetaminophen (Tylenol) 650 mg PRN Q6HRS PRN PO PAIN / TEMP Last administered on 08/09/16 16:38; Start 07/22/16 at 15:30 Divalproex Sodium (Depakote Sprinkles) 375 mg BID PO Last administered on 08:58; Start 07/22/16 at 21:00; Stop 08/04/16 at 17:56; Status DC Melatonin 6 mg QHS PO Last administered on 08/17/16 19:32; Start 07/22/16 at 21 :00 Risperidone (Risperdal) 0.25 mg QID PO Last administered on 08/17/16 19:32; Start 07/24/16 at 21:00 Lorazepam (Ativan) 1 mg DAILY IM ; Start 07/27/16 at 09:00; Stop 07/27/16 at 09: 00; Status DC Lorazepam (Ativan) 1 mg 14 IM Last administered on 07/28/16 13:47; Start 07/26 at 15:00; Stop 07/29/16 at 14:13; Status DC Haloperidol Lactate (Haldol) 5 mg 1X ONCE IM Last administered on 07/27/16 16 :15; Start 07/27/16 at 16:15; Stop 07/27/16 at 16:16; Status DC Haloperidol Lactate (Haldol) 5 mg 14 IM Last administered on 07/28/16 13:46; Start 07/28/16 at 14:00; Stop 07/29/16 at 14:13; Status DC Buspirone HCl (Buspar) 10 mg TID PO Last administered on 08/04/16 08:58; Start 07/27/16 at 21:00; Stop 08/04/16 at 17:56; Status DC Trazodone HCl (Desyrel) 12.5 mg TIDWMEALS PO Last administered on 08/03/16 11: 58; Start 07/28/16 at 08:00; Stop 08/03/16 at 13:40; Status DC Fosfomycin Tromethamine (Monurol) 3 gm 1X ONCE PO Last administered on 06:27; Start 07/29/16 at 06:30; Stop 07/29/16 at 06:32; Status DC Trazodone HCl (Desyrel) 25 mg TIDWMEALS PO Last administered on 08/06/16 07:54 ; Start 08/03/16 at 17:00; Stop 08/06/16 at 11:24; Status DC Buspirone HCl (Buspar) 10 mg QID PO Last administered on 08/17/16 19:32; Start 08/04/16 at 21:00 Haloperidol Lactate (Haldol) 5 mg AFTRNOON IM Last administered on 08/17/16 13: 36; Start 08/05/16 at 13:15 Lorazepam (Ativan) 0.5 mg AFTRNOON IM Last administered on 08/17/16 13:36; Start 08/05/16 at 13:15 Oxcarbazepine (Trileptal) 300 mg BID PO Last administered on 08/11/16 09:48; Start 08/06/16 at 21:00; Stop 08/11/16 at 18:43; Status DC Trazodone HCl (Desyrel) 50 mg BID PO Last administered on 08/17/16 19:32; Start 08/06/16 at 21:00 Trazodone HCl (Desyrel) 50 mg 14 PO Last administered on 08/17/16 13:37; Start 08/06/16 at 14:00 Temazepam (Restoril) 15 mg PRN QHS PRN PO INSOMNIA Last administered on 19:28; Start 08/09/16 at 18:30 Oxcarbazepine (Trileptal) 300 mg TID PO Last administered on 08/17/16 19:32; Start 08/11/16 at 21:00 Haloperidol Decanoate (Haldol Decanoate Im Extended Release) 100 mg QMONTH IM Last administered on 08/13/16 21:04; Start 08/13/16 at 21:00 Active Scripts Active Lisinopril 20 Mg Tablet 1 Tab PO DAILY NICODERM CQ 21mg (Nicotine) 1 Each Patch.td24 1 Patch TP DAILY Lorazepam 0.5 Mg Tablet 1 Tab PO Q4HRS PRN Hydroxyzine Hcl 25 Mg Tablet 1 Tab PO Q6HRS PRN Benadryl (Diphenhydramine Hcl) 25 Mg Capsule 1 Cap PO Q6HRS Diagnosis: Problems: (1) Encounter for psychological evaluation (2) Anxiety disorder (3) Impulse control disorder (4) Dementia, vascular, with delusions (5) Dementia, vascular, with depression (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
--- NOTE | 2016-08-18 02:54 | NUR ---
Behavior Intervention Response and Plan: BIRP Note: Behavior: Assumed Care of patient, patient located in Hallway at shift change. Patient exhibited the following behavior Wandering, Calm, Drowsy. Brief assessment on rounds of vital signs, medication needs, lab studies, and pain. Treatment plan problems Dementia W BD, Altered Mental Status, and Fall Risk. Intervention: Patient assessed and the following interventions initiated safety checks 15 Minute Checks Cognitive Assessment , Medications , Oral Hydration. Response: After interactions and interventions patient responded in the following manner, Wandering , Calm ,Drowsy. Continue to assess behaviors and condition will continue to monitor throughout the shift as needed. 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 Continue to assess patient for changes in above assessment. Monitor for medication needs, pain, and safety concerns. Hourly rounding performed to ensure safe environment.
[2016-08-18 05:49] VITALS: BP 125/77
--- NOTE | 2016-08-18 08:30 | NUR ---
Behavior Intervention Response and Plan: BIRP Note: Behavior: Assumed Care of patient, patient located in Dining Room at shift change. Patient exhibited the following behavior Disorganized, Resistive, Delusions. Brief assessment on rounds of vital signs, medication needs, lab studies, and pain. Treatment plan problems 1 & 2. Intervention: Patient assessed and the following interventions initiated safety checks 15 Minute Checks Cognitive Assessment , Head to toe Assessment , Medications. Response: After interactions and interventions patient responded in the following manner, Calm , Appropriate ,Cooperative. Continue to assess behaviors and condition will continue to monitor throughout the shift as needed. 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 Continue to assess patient for changes in above assessment. Monitor for medication needs, pain, and safety concerns. Hourly rounding performed to ensure safe environment.
[2016-08-18] MEDS: busPIRone 10 MG TABLET. PO SCH ×4 (08:31→20:11)
[2016-08-18] MEDS: NICOTINE 21MG PATCH. TD SCH (08:31)
[2016-08-18] MEDS: DOCUSATE CALCIUM 240 MG CAPSULE PO SCH (08:31)
[2016-08-18] MEDS: traZODone 50 MG TABLET. PO SCH ×3 (08:31→20:13)
[2016-08-18] MEDS: risperiDONE 0.25 MG TABLET. PO SCH ×4 (08:31→20:11)
[2016-08-18] MEDS: CITALOPRAM 10 MG TABLET. PO SCH (08:31)
[2016-08-18] MEDS: LISINOPRIL 20 MG TABLET PO SCH (08:31)
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
[2016-08-18] MEDS: CHOLECALCIFEROL (VITAMIN D3) 1,000 UNIT TABLET PO SCH ×2 (12:32→16:52)
[2016-08-18] MEDS: LORazepam 2 MG/ML VIAL IM SCH (13:00)
[2016-08-18] MEDS: HALOPERIDOL LACT 5 MG/ML VIAL. IM SCH (13:00)
[2016-08-18 14:37] VITALS: BP 152/73
--- NOTE | 2016-08-18 16:00 | NUR ---
Patient wandering halls, confused, not aggressive. She agreed to join in craft activity led by TIA. Will hold IM meds at this time and monitor for behaviours.
--- NOTE | 2016-08-18 16:52 | NUR ---
SW GROUP NOTE TITLE: Windsocks! ACTIVITY: Materials provided for each person to decorate a windsock to hang in day room. DURATION: 3:00-4:30 TARGET BEHAVIOR: Directed focus, therapeutic expression, social skills, problem solving, reminisce RESPONSE: joined the group a little late, but was able to focus on project and place stickers on windsock. Asked for help from a peer appropriately.
[2016-08-18] MEDS: MELATONIN 3 MG TABLET PO SCH (20:11)
[2016-08-18] MEDS: MIRTAZAPINE 15 MG TABLET PO SCH (20:11)
[2016-08-18] MEDS: traZODone 100 MG TABLET. PO SCH (20:11)
--- NOTE | 2016-08-18 20:52 | PDOC ---
Exam Yaya Demential Exam: Yaya Note: Please also refer to the separate dictated note~for this date of service dictated separately.~Patient seen individually. Discussed the patient with Nursing staff reviewed the chart.~Reviewed interim history and current functioning. Reviewed vital signs,~Labs/ Radiology~and current medications noted below. Continue current treatment with the changes noted in the dictated addendum note Assessment: Vital Signs: Vital Signs Date Time Temp Pulse Resp B/P (MAP) Pulse Ox O2 Delivery O2 Flow Rate FiO2 08/18/16 14:37 97.8 73 18 152/73 (99) 98 I&O Intake and Output 08/18/16 07:00 Intake Total 420 ml Balance 420 ml Intake Oral 420 ml Current Medications: Meds: Current Medications Diphenhydramine HCl (Benadryl) 25 mg Q6HRS PO ; Start 07/01/16 at 18:00; Stop at 18:00; Status DC Hydroxyzine HCl (Atarax) 25 mg PRN Q6HRS PRN PO ITCHING Last administered on 01:19; Start 07/01/16 at 15:15; Stop 07/06/16 at 04:21; Status DC Lisinopril (Prinivil) 20 mg DAILY PO Last administered on 08/18/16 08:31; Start 07/02/16 at 09:00 Lorazepam (Ativan) 0.5 mg PRN Q4HRS PRN PO ANXIETY / AGITATION Last administered on 07/02/16 21:07; Start 07/01/16 at 15:15; Stop 07/02/16 at 21:44 ; Status DC Nicotine (Nicoderm Cq 21mg) 1 patch DAILY TD Last administered on 08/18/16 08: 31; Start 07/02/16 at 09:00 Lorazepam (Ativan) 0.5 mg PRN Q4HRS PRN IV ANXIETY / AGITATION; Start 07/01/16 at 15:15; Stop 07/01/16 at 19:14; Status DC Diphenhydramine HCl (Benadryl) 25 mg PRN Q6HRS PRN IVP ITCHING; Start 07/01/16 at 15:15; Stop 07/01/16 at 19:14; Status DC Haloperidol Lactate (Haldol) 5 mg PRN Q6HRS PRN IM AGITATION; Start 07/01/16 at 15:15; Stop 07/01/16 at 19:14; Status DC Diphenhydramine HCl (Benadryl) 25 mg PRN Q6HRS PRN PO ITCHING Last administered on 07/01/16 20:56; Start 07/01/16 at 18:00 Acetaminophen/ Hydrocodone Bitart (Lortab 5/325) 1 tab PRN BID PRN PO PAIN Last administered on 08/06/16 13:12; Start 07/02/16 at 21:45 Olanzapine (Zyprexa Zydis) 2.5 mg PRN Q2HR PRN PO PSYCHOSIS Last administered on 08/17/16 10:22; Start 07/02/16 at 21:45 Mirtazapine (Remeron) 15 mg QHS PO Last administered on 08/18/16 20:11; Start 07/03/16 at 21:00 Citalopram Hydrobromide (Celexa) 10 mg DAILY PO Last administered on 08/18/16 08:31; Start 07/03/16 at 09:00 Risperidone (Risperdal) 0.25 mg BID PO Last administered on 07/10/16 08:54; Start 07/03/16 at 21:00; Stop 07/10/16 at 15:18; Status DC Docusate Calcium (Surfak) 240 mg DAILY PO Last administered on 08/18/16 08:31; Start 07/04/16 at 21:00 Magnesium Hydroxide (Milk Of Magnesia) 2,400 mg PRN QHS PRN PO CONSTIPATION; Start 07/04/16 at 18:15 Trazodone HCl (Desyrel) 50 mg QHS PO Last administered on 07/14/16 20:10; Start 07/05/16 at 21:00; Stop 07/15/16 at 13:52; Status DC Trazodone HCl (Desyrel) 50 mg PRN QHS PRN PO INSOMNIA Last administered on 21:27; Start 07/05/16 at 20:45; Stop 07/15/16 at 13:52; Status DC Hydroxyzine HCl (Atarax) 50 mg PRN Q2HR PRN PO Psychosis Last administered on 10:22; Start 07/06/16 at 04:30 Fentanyl (Duragesic 12mcg/ Hr) 1 patch Q3DAYS TD Last administered on 08/16/16 08:04; Start 07/08/16 at 18:30 Risperidone (Risperdal) 0.25 mg TID PO Last administered on 07/24/16 13:20; Start 07/10/16 at 21:00; Stop 07/24/16 at 18:29; Status DC Buspirone HCl (Buspar) 5 mg TID PO Last administered on 07/13/16 12:28; Start 07/10/16 at 21:00; Stop 07/13/16 at 15:32; Status DC Buspirone HCl (Buspar) 10 mg BID PO Last administered on 07/27/16 09:32; Start 07/13/16 at 21:00; Stop 07/27/16 at 18:29; Status DC Divalproex Sodium (Depakote Sprinkles) 125 mg BID PO Last administered on 07:46; Start 07/13/16 at 21:00; Stop 07/19/16 at 11:49; Status DC Vitamin D (Vitamin D3) 2,000 unit BIDPCLD PO Last administered on 08/18/16 16: 52; Start 07/14/16 at 12:30 Trazodone HCl (Desyrel) 100 mg QHS PO Last administered on 08/18/16 20:11; Start 07/15/16 at 21:00 Trazodone HCl (Desyrel) 100 mg PRN QHS PO ; Start 07/15/16 at 13:45; Stop at 23:01; Status DC Trazodone HCl (Desyrel) 100 mg PRN QHS PRN PO INSOMNIA Last administered on 00:53; Start 07/15/16 at 23:00 Quetiapine Fumarate (SEROquel) 50 mg 1X ONCE PO Last administered on 07/16/16 00:44; Start 07/16/16 at 00:30; Stop 07/16/16 at 00:31; Status DC Temazepam (Restoril) 30 mg PRN QHS PRN PO INSOMNIA Last administered on 19:04; Start 07/16/16 at 18:30; Stop 08/09/16 at 18:24; Status DC Divalproex Sodium (Depakote Sprinkles) 250 mg BID PO Last administered on 12:20; Start 07/19/16 at 21:00; Stop 07/22/16 at 18:23; Status DC Acetaminophen (Tylenol) 650 mg PRN Q6HRS PRN PO PAIN / TEMP Last administered on 08/09/16 16:38; Start 07/22/16 at 15:30 Divalproex Sodium (Depakote Sprinkles) 375 mg BID PO Last administered on 08:58; Start 07/22/16 at 21:00; Stop 08/04/16 at 17:56; Status DC Melatonin 6 mg QHS PO Last administered on 08/18/16 20:11; Start 07/22/16 at 21 :00 Risperidone (Risperdal) 0.25 mg QID PO Last administered on 08/18/16 20:11; Start 07/24/16 at 21:00 Lorazepam (Ativan) 1 mg DAILY IM ; Start 07/27/16 at 09:00; Stop 07/27/16 at 09: 00; Status DC Lorazepam (Ativan) 1 mg 14 IM Last administered on 07/28/16 13:47; Start 07/26 at 15:00; Stop 07/29/16 at 14:13; Status DC Haloperidol Lactate (Haldol) 5 mg 1X ONCE IM Last administered on 07/27/16 16 :15; Start 07/27/16 at 16:15; Stop 07/27/16 at 16:16; Status DC Haloperidol Lactate (Haldol) 5 mg 14 IM Last administered on 07/28/16 13:46; Start 07/28/16 at 14:00; Stop 07/29/16 at 14:13; Status DC Buspirone HCl (Buspar) 10 mg TID PO Last administered on 08/04/16 08:58; Start 07/27/16 at 21:00; Stop 08/04/16 at 17:56; Status DC Trazodone HCl (Desyrel) 12.5 mg TIDWMEALS PO Last administered on 08/03/16 11: 58; Start 07/28/16 at 08:00; Stop 08/03/16 at 13:40; Status DC Fosfomycin Tromethamine (Monurol) 3 gm 1X ONCE PO Last administered on 06:27; Start 07/29/16 at 06:30; Stop 07/29/16 at 06:32; Status DC Trazodone HCl (Desyrel) 25 mg TIDWMEALS PO Last administered on 08/06/16 07:54 ; Start 08/03/16 at 17:00; Stop 08/06/16 at 11:24; Status DC Buspirone HCl (Buspar) 10 mg QID PO Last administered on 08/18/16 20:11; Start 08/04/16 at 21:00 Haloperidol Lactate (Haldol) 5 mg AFTRNOON IM Last administered on 08/17/16 13: 36; Start 08/05/16 at 13:15 Lorazepam (Ativan) 0.5 mg AFTRNOON IM Last administered on 08/17/16 13:36; Start 08/05/16 at 13:15 Oxcarbazepine (Trileptal) 300 mg BID PO Last administered on 08/11/16 09:48; Start 08/06/16 at 21:00; Stop 08/11/16 at 18:43; Status DC Trazodone HCl (Desyrel) 50 mg BID PO Last administered on 08/18/16 20:13; Start 08/06/16 at 21:00 Trazodone HCl (Desyrel) 50 mg 14 PO Last administered on 08/18/16 12:32; Start 08/06/16 at 14:00 Temazepam (Restoril) 15 mg PRN QHS PRN PO INSOMNIA Last administered on 19:28; Start 08/09/16 at 18:30 Oxcarbazepine (Trileptal) 300 mg TID PO Last administered on 08/18/16 20:11; Start 08/11/16 at 21:00 Haloperidol Decanoate (Haldol Decanoate Im Extended Release) 100 mg QMONTH IM Last administered on 08/13/16 21:04; Start 08/13/16 at 21:00 Active Scripts Active Lisinopril 20 Mg Tablet 1 Tab PO DAILY NICODERM CQ 21mg (Nicotine) 1 Each Patch.td24 1 Patch TP DAILY Lorazepam 0.5 Mg Tablet 1 Tab PO Q4HRS PRN Hydroxyzine Hcl 25 Mg Tablet 1 Tab PO Q6HRS PRN Benadryl (Diphenhydramine Hcl) 25 Mg Capsule 1 Cap PO Q6HRS Diagnosis: Problems: (1) Encounter for psychological evaluation (2) Anxiety disorder (3) Impulse control disorder (4) Dementia, vascular, with delusions (5) Dementia, vascular, with depression (6) Dementia in Alzheimer's disease with delusions (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
--- NOTE | 2016-08-18 22:28 | PN ---
DATE: 08/17/2016 PSYCHIATRIC PROGRESS NOTE This is late entry of 08/17/2016, covers elements not covered in my initial note. SUBJECTIVE: The patient took her bedtime medications in ice cream, was intermittently agitated, during the day on 08/17/2016, took her meds in ice cream, calmer, got Zyprexa x 1, confused, looking for dogs. REVIEW OF SYSTEMS: No CV, , pulmonary, eye, ENT system symptoms on review. Reliability poor. MENTAL STATUS EXAMINATION: Oriented to herself. Insight, judgment, recent and remote memory, attention, concentration, fund of knowledge poor, consistent with her diagnosis mentioned in my initial note. PLAN: Continue current psychotropics including daily intramuscular Haldol, Ativan, which we will attempt to discontinue in the next day or two. MAN Quinten BHATT MD DR: ALICIA/shanon JOB#: [id number] / [id number]
--- NOTE | 2016-08-19 00:56 | NUR ---
Behavior Intervention Response and Plan: BIRP Note: Behavior: Assumed Care of patient, patient located in Hallway at shift change. Patient exhibited the following behavior Wandering, Disorganized, Compliant. Brief assessment on rounds of vital signs, medication needs, lab studies, and pain. Treatment plan problems Dementia W BD, Altered Mental Status, and Fall Risk. Intervention: Patient assessed and the following interventions initiated safety checks 15 Minute Checks Cognitive Assessment , Medications , Nutrition. Response: After interactions and interventions patient responded in the following manner, Wandering , Disorganized ,Compliant. Continue to assess behaviors and condition will continue to monitor throughout the shift as needed. 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 Continue to assess patient for changes in above assessment. Monitor for medication needs, pain, and safety concerns. Hourly rounding performed to ensure safe environment.
[2016-08-19 06:36] VITALS: BP 107/68
[2016-08-19] MEDS: LISINOPRIL 20 MG TABLET PO SCH (08:06)
[2016-08-19] MEDS: traZODone 50 MG TABLET. PO SCH ×3 (08:07→20:11)
[2016-08-19] MEDS: CITALOPRAM 10 MG TABLET. PO SCH (08:07)
[2016-08-19] MEDS: NICOTINE 21MG PATCH. TD SCH (08:07)
[2016-08-19] MEDS: DOCUSATE CALCIUM 240 MG CAPSULE PO SCH (08:07)
[2016-08-19] MEDS: risperiDONE 0.25 MG TABLET. PO SCH ×4 (08:07→20:11)
[2016-08-19] MEDS: busPIRone 10 MG TABLET. PO SCH ×4 (08:07→20:10)
[2016-08-19] MEDS: fentaNYL 12MCG/HR 1 PATCH PATCH TD SCH (08:08)
--- NOTE | 2016-08-19 10:06 | NUR ---
Behavior Intervention Response and Plan: BIRP Note: Behavior: Assumed Care of patient, patient located in Dining Room at shift change. Patient exhibited the following behavior Disorganized, Wandering, Compliant. Brief assessment on rounds of vital signs, medication needs, lab studies, and pain. Treatment plan problems . Intervention: Patient assessed and the following interventions initiated safety checks 15 Minute Checks Cognitive Assessment , Head to toe Assessment , Medications. Response: After interactions and interventions patient responded in the following manner, Disorganized , Drowsy ,Cooperative. Continue to assess behaviors and condition will continue to monitor throughout the shift as needed. 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 Continue to assess patient for changes in above assessment. Monitor for medication needs, pain, and safety concerns. Hourly rounding performed to ensure safe environment.
--- NOTE | 2016-08-19 12:25 | NUR ---
Patient sleeping, saved lunch tray for when she gets up. Addendum: 08/19/16 at 1226 by PUSHPA DAWSON RN Amended: Links added.
--- NOTE | 2016-08-19 12:37 | NUR ---
TIA working on placement, has calls out to [facility]. TIA will follow up.
[2016-08-19] MEDS: HALOPERIDOL LACT 5 MG/ML VIAL. IM SCH (13:00)
[2016-08-19] MEDS: LORazepam 2 MG/ML VIAL IM SCH (13:00)
[2016-08-19] MEDS: CHOLECALCIFEROL (VITAMIN D3) 1,000 UNIT TABLET PO SCH ×2 (14:19→16:48)
--- NOTE | 2016-08-19 15:10 | NUR ---
SW called [facility], unable to accept pt due to current behaviors as they state have a high acuity.
[2016-08-19 15:43] VITALS: BP 144/74
[2016-08-19] MEDS: MELATONIN 3 MG TABLET PO SCH (20:10)
[2016-08-19] MEDS: MIRTAZAPINE 15 MG TABLET PO SCH (20:10)
[2016-08-19] MEDS: traZODone 100 MG TABLET. PO SCH (20:11)
--- NOTE | 2016-08-19 21:52 | PDOC ---
Exam Yaya Demential Exam: Yaya Note: Please also refer to the separate dictated note~for this date of service dictated separately.~Patient seen individually. Discussed the patient with Nursing staff reviewed the chart.~Reviewed interim history and current functioning. Reviewed vital signs,~Labs/ Radiology~and current medications noted below. Continue current treatment with the changes noted in the dictated addendum note Assessment: Vital Signs: Vital Signs Date Time Temp Pulse Resp B/P (MAP) Pulse Ox O2 Delivery O2 Flow Rate FiO2 08/19/16 15:43 97.2 64 20 144/74 (97) 96 I&O Intake and Output 08/19/16 07:00 Intake Total 680 ml Balance 680 ml Intake Oral 680 ml Current Medications: Meds: Current Medications Diphenhydramine HCl (Benadryl) 25 mg Q6HRS PO ; Start 07/01/16 at 18:00; Stop at 18:00; Status DC Hydroxyzine HCl (Atarax) 25 mg PRN Q6HRS PRN PO ITCHING Last administered on 01:19; Start 07/01/16 at 15:15; Stop 07/06/16 at 04:21; Status DC Lisinopril (Prinivil) 20 mg DAILY PO Last administered on 08/18/16 08:31; Start 07/02/16 at 09:00 Lorazepam (Ativan) 0.5 mg PRN Q4HRS PRN PO ANXIETY / AGITATION Last administered on 07/02/16 21:07; Start 07/01/16 at 15:15; Stop 07/02/16 at 21:44 ; Status DC Nicotine (Nicoderm Cq 21mg) 1 patch DAILY TD Last administered on 08/19/16 08: 07; Start 07/02/16 at 09:00 Lorazepam (Ativan) 0.5 mg PRN Q4HRS PRN IV ANXIETY / AGITATION; Start 07/01/16 at 15:15; Stop 07/01/16 at 19:14; Status DC Diphenhydramine HCl (Benadryl) 25 mg PRN Q6HRS PRN IVP ITCHING; Start 07/01/16 at 15:15; Stop 07/01/16 at 19:14; Status DC Haloperidol Lactate (Haldol) 5 mg PRN Q6HRS PRN IM AGITATION; Start 07/01/16 at 15:15; Stop 07/01/16 at 19:14; Status DC Diphenhydramine HCl (Benadryl) 25 mg PRN Q6HRS PRN PO ITCHING Last administered on 07/01/16 20:56; Start 07/01/16 at 18:00 Acetaminophen/ Hydrocodone Bitart (Lortab 5/325) 1 tab PRN BID PRN PO PAIN Last administered on 08/06/16 13:12; Start 07/02/16 at 21:45 Olanzapine (Zyprexa Zydis) 2.5 mg PRN Q2HR PRN PO PSYCHOSIS Last administered on 08/17/16 10:22; Start 07/02/16 at 21:45 Mirtazapine (Remeron) 15 mg QHS PO Last administered on 08/19/16 20:10; Start 07/03/16 at 21:00 Citalopram Hydrobromide (Celexa) 10 mg DAILY PO Last administered on 08/19/16 08:07; Start 07/03/16 at 09:00 Risperidone (Risperdal) 0.25 mg BID PO Last administered on 07/10/16 08:54; Start 07/03/16 at 21:00; Stop 07/10/16 at 15:18; Status DC Docusate Calcium (Surfak) 240 mg DAILY PO Last administered on 08/19/16 08:07 ; Start 07/04/16 at 21:00 Magnesium Hydroxide (Milk Of Magnesia) 2,400 mg PRN QHS PRN PO CONSTIPATION; Start 07/04/16 at 18:15 Trazodone HCl (Desyrel) 50 mg QHS PO Last administered on 07/14/16 20:10; Start 07/05/16 at 21:00; Stop 07/15/16 at 13:52; Status DC Trazodone HCl (Desyrel) 50 mg PRN QHS PRN PO INSOMNIA Last administered on 21:27; Start 07/05/16 at 20:45; Stop 07/15/16 at 13:52; Status DC Hydroxyzine HCl (Atarax) 50 mg PRN Q2HR PRN PO Psychosis Last administered on 10:22; Start 07/06/16 at 04:30 Fentanyl (Duragesic 12mcg/ Hr) 1 patch Q3DAYS TD Last administered on 08:08; Start 07/08/16 at 18:30 Risperidone (Risperdal) 0.25 mg TID PO Last administered on 07/24/16 13:20; Start 07/10/16 at 21:00; Stop 07/24/16 at 18:29; Status DC Buspirone HCl (Buspar) 5 mg TID PO Last administered on 07/13/16 12:28; Start 07/10/16 at 21:00; Stop 07/13/16 at 15:32; Status DC Buspirone HCl (Buspar) 10 mg BID PO Last administered on 07/27/16 09:32; Start 07/13/16 at 21:00; Stop 07/27/16 at 18:29; Status DC Divalproex Sodium (Depakote Sprinkles) 125 mg BID PO Last administered on 07:46; Start 07/13/16 at 21:00; Stop 07/19/16 at 11:49; Status DC Vitamin D (Vitamin D3) 2,000 unit BIDPCLD PO Last administered on 08/19/16 16: 48; Start 07/14/16 at 12:30 Trazodone HCl (Desyrel) 100 mg QHS PO Last administered on 08/19/16 20:11; Start 07/15/16 at 21:00 Trazodone HCl (Desyrel) 100 mg PRN QHS PO ; Start 07/15/16 at 13:45; Stop at 23:01; Status DC Trazodone HCl (Desyrel) 100 mg PRN QHS PRN PO INSOMNIA Last administered on 00:53; Start 07/15/16 at 23:00 Quetiapine Fumarate (SEROquel) 50 mg 1X ONCE PO Last administered on 07/16/16 00:44; Start 07/16/16 at 00:30; Stop 07/16/16 at 00:31; Status DC Temazepam (Restoril) 30 mg PRN QHS PRN PO INSOMNIA Last administered on 19:04; Start 07/16/16 at 18:30; Stop 08/09/16 at 18:24; Status DC Divalproex Sodium (Depakote Sprinkles) 250 mg BID PO Last administered on 12:20; Start 07/19/16 at 21:00; Stop 07/22/16 at 18:23; Status DC Acetaminophen (Tylenol) 650 mg PRN Q6HRS PRN PO PAIN / TEMP Last administered on 08/09/16 16:38; Start 07/22/16 at 15:30 Divalproex Sodium (Depakote Sprinkles) 375 mg BID PO Last administered on 08:58; Start 07/22/16 at 21:00; Stop 08/04/16 at 17:56; Status DC Melatonin 6 mg QHS PO Last administered on 08/19/16 20:10; Start 07/22/16 at 21:00 Risperidone (Risperdal) 0.25 mg QID PO Last administered on 08/19/16 20:11; Start 07/24/16 at 21:00 Lorazepam (Ativan) 1 mg DAILY IM ; Start 07/27/16 at 09:00; Stop 07/27/16 at 09: 00; Status DC Lorazepam (Ativan) 1 mg 14 IM Last administered on 07/28/16 13:47; Start 07/26 at 15:00; Stop 07/29/16 at 14:13; Status DC Haloperidol Lactate (Haldol) 5 mg 1X ONCE IM Last administered on 07/27/16 16 :15; Start 07/27/16 at 16:15; Stop 07/27/16 at 16:16; Status DC Haloperidol Lactate (Haldol) 5 mg 14 IM Last administered on 07/28/16 13:46; Start 07/28/16 at 14:00; Stop 07/29/16 at 14:13; Status DC Buspirone HCl (Buspar) 10 mg TID PO Last administered on 08/04/16 08:58; Start 07/27/16 at 21:00; Stop 08/04/16 at 17:56; Status DC Trazodone HCl (Desyrel) 12.5 mg TIDWMEALS PO Last administered on 08/03/16 11: 58; Start 07/28/16 at 08:00; Stop 08/03/16 at 13:40; Status DC Fosfomycin Tromethamine (Monurol) 3 gm 1X ONCE PO Last administered on 06:27; Start 07/29/16 at 06:30; Stop 07/29/16 at 06:32; Status DC Trazodone HCl (Desyrel) 25 mg TIDWMEALS PO Last administered on 08/06/16 07:54 ; Start 08/03/16 at 17:00; Stop 08/06/16 at 11:24; Status DC Buspirone HCl (Buspar) 10 mg QID PO Last administered on 08/19/16 20:10; Start 08/04/16 at 21:00 Haloperidol Lactate (Haldol) 5 mg AFTRNOON IM Last administered on 08/17/16 13: 36; Start 08/05/16 at 13:15; Stop 08/19/16 at 18:30; Status DC Lorazepam (Ativan) 0.5 mg AFTRNOON IM Last administered on 08/17/16 13:36; Start 08/05/16 at 13:15; Stop 08/19/16 at 18:30; Status DC Oxcarbazepine (Trileptal) 300 mg BID PO Last administered on 08/11/16 09:48; Start 08/06/16 at 21:00; Stop 08/11/16 at 18:43; Status DC Trazodone HCl (Desyrel) 50 mg BID PO Last administered on 08/19/16 20:11; Start 08/06/16 at 21:00 Trazodone HCl (Desyrel) 50 mg 14 PO Last administered on 08/19/16 14:20; Start 08/06/16 at 14:00 Temazepam (Restoril) 15 mg PRN QHS PRN PO INSOMNIA Last administered on 19:28; Start 08/09/16 at 18:30 Oxcarbazepine (Trileptal) 300 mg TID PO Last administered on 08/19/16 20:11; Start 08/11/16 at 21:00 Haloperidol Decanoate (Haldol Decanoate Im Extended Release) 100 mg QMONTH IM Last administered on 08/13/16t 21:04; Start 08/13/16 at 21:00 Haloperidol Lactate (Haldol) 5 mg QODAY IM ; Start 08/20/16 at 13:00 Lorazepam (Ativan) 0.5 mg QODAY IM ; Start 08/20/16 at 13:00 Active Scripts Active Lisinopril 20 Mg Tablet 1 Tab PO DAILY NICODERM CQ 21mg (Nicotine) 1 Each Patch.td24 1 Patch TP DAILY Lorazepam 0.5 Mg Tablet 1 Tab PO Q4HRS PRN Hydroxyzine Hcl 25 Mg Tablet 1 Tab PO Q6HRS PRN Benadryl (Diphenhydramine Hcl) 25 Mg Capsule 1 Cap PO Q6HRS CAITLYN BHATT MD August 19, 2016 21:52
--- NOTE | 2016-08-20 03:18 | NUR ---
Behavior Intervention Response and Plan: BIRP Note: Behavior: Assumed Care of patient, patient located in Hallway at shift change. Patient exhibited the following behavior Wandering, Restless, Disorganized. Brief assessment on rounds of vital signs, medication needs, lab studies, and pain. Treatment plan problems Dementia W BD, Altered Mental Status, and Fall Risk. Intervention: Patient assessed and the following interventions initiated safety checks 15 Minute Checks Cognitive Assessment , Medications , Nutrition. Response: After interactions and interventions patient responded in the following manner, Restless , Disorganized ,Irritable. Continue to assess behaviors and condition will continue to monitor throughout the shift as needed. Plan: Continue to monitor Master Treatment Plan for patient's progress toward short term goals of Decreased Agitation, Decreased Aggression, detention goals to return to previous living setting vs placement. Continue to assess patient for changes in above assessment. Monitor for medication needs, pain, and safety concerns. Hourly rounding performed to ensure safe environment.
[2016-08-20 06:04] VITALS: BP 144/77
[2016-08-20] MEDS: NICOTINE 21MG PATCH. TD SCH (08:04)
[2016-08-20] MEDS: busPIRone 10 MG TABLET. PO SCH ×4 (08:04→19:16)
[2016-08-20] MEDS: CHOLECALCIFEROL (VITAMIN D3) 1,000 UNIT TABLET PO SCH ×2 (08:05→16:08)
[2016-08-20] MEDS: traZODone 50 MG TABLET. PO SCH ×3 (08:05→19:17)
[2016-08-20] MEDS: risperiDONE 0.25 MG TABLET. PO SCH ×4 (08:05→19:16)
[2016-08-20] MEDS: DOCUSATE CALCIUM 240 MG CAPSULE PO SCH (08:05)
[2016-08-20] MEDS: CITALOPRAM 10 MG TABLET. PO SCH (08:05)
[2016-08-20] MEDS: LISINOPRIL 20 MG TABLET PO SCH (08:05)
--- NOTE | 2016-08-20 09:40 | PN ---
DATE: 08/18/2016 PSYCHIATRIC PROGRESS NOTE This is late entry of 08/18/2016, covers elements not covered in my initial note. SUBJECTIVE: The patient took her morning medications whole per nursing staff, no IM Haldol, Ativan was given on 08/18/2016, took her p.m. medications, remains disorganized. Overall, behaviorally better, less agitated. REVIEW OF SYSTEMS: No eye, ENT, CV, , pulmonary system symptoms on review. Reliability poor. MENTAL STATUS EXAMINATION: Oriented to herself. Insight, judgment, recent and remote memory, attention, concentration, fund of knowledge poor, consistent with her diagnosis mentioned in my initial note. PLAN: Continue current psychotropics. Valproic acid level is 56. Adjust further as clinically indicated; discontinue IM Haldol, Ativan in the next day or so if p.o. medications are more effective. MAN Quinten BHATT MD DR: ALICIA/shanon JOB#: [id number] / [id number]
--- NOTE | 2016-08-20 10:34 | NUR ---
Per treatment team meeting, IM haldol/ativan to be used scheduled every other day.
--- NOTE | 2016-08-20 10:45 | NUR ---
THERAPEUTIC RECREATION GROUP NOTE TITLE :Balloon Bop with Noodles ACTIVITY : Activities and Games GOAL : Increase socialization and alertness. Maintain/improve mental and physical functioning. DURATION : 60 Minutes RESPONSE : Full participation. Pt. was helpful and playful. She sat and waited patiently with a smile on her face when the balloon was not near her. She tracked the balloon and was able to hit it accurately. She was social with others and needed minimal prompting to stay on task. She left the group a few minutes early to wander the halls.
--- NOTE | 2016-08-20 11:09 | NUR ---
Behavior Intervention Response and Plan: BIRP Note: Behavior: Assumed Care of patient, patient located in Hallway at shift change. Patient exhibited the following behavior Disorganized, Wandering, Compliant. Brief assessment on rounds of vital signs, medication needs, lab studies, and pain. Treatment plan problems . Intervention: Patient assessed and the following interventions initiated safety checks 15 Minute Checks Cognitive Assessment , Head to toe Assessment , Medications. Response: After interactions and interventions patient responded in the following manner, Disorganized , Wandering ,Drowsy. Continue to assess behaviors and condition will continue to monitor throughout the shift as needed. Plan: Continue to monitor Master Treatment Plan for patient's progress toward short term goals of Medication Compliance, Improved Mood, group home goals to return to previous living setting vs placement. Continue to assess patient for changes in above assessment. Monitor for medication needs, pain, and safety concerns. Hourly rounding performed to ensure safe environment.
--- NOTE | 2016-08-20 13:00 | NUR ---
Pt becoming increasingly anxious, yelling in amharic. Redirection unsuccessful. IM Ativan and Haldol administered successfully. Will continue to monitor.
--- NOTE | 2016-08-20 14:00 | NUR ---
THERAPEUTIC RECREATION GROUP NOTE TITLE :[place]/ 20 ACTIVITY : Activities and Games GOAL : Increase social interaction, fine motor skills. Maintain or improve mental functioning. Decrease restlessness DURATION : 60 minutes RESPONSE : No participation.
[2016-08-20] MEDS: HALOPERIDOL LACT 5 MG/ML VIAL. IM SCH (15:52)
[2016-08-20] MEDS: LORazepam 2 MG/ML VIAL IM SCH (15:52)
[2016-08-20 16:08] VITALS: BP 181/93
[2016-08-20] MEDS: MIRTAZAPINE 15 MG TABLET PO SCH (19:16)
[2016-08-20] MEDS: traZODone 100 MG TABLET. PO SCH (19:16)
[2016-08-20] MEDS: MELATONIN 3 MG TABLET PO SCH (19:16)
--- NOTE | 2016-08-20 20:53 | PDOC ---
Exam Yaya Demential Exam: Yaya Note: Please also refer to the separate dictated note~for this date of service dictated separately.~Patient seen individually. Discussed the patient with Nursing staff reviewed the chart.~Reviewed interim history and current functioning. Reviewed vital signs,~Labs/ Radiology~and current medications noted below. Continue current treatment with the changes noted in the dictated addendum note Assessment: Vital Signs: Vital Signs Date Time Temp Pulse Resp B/P (MAP) Pulse Ox O2 Delivery O2 Flow Rate FiO2 08/20/16 16:08 98.0 70 20 181/93 (122) 97 I&O Intake and Output 08/20/16 07:00 Intake Total 600 ml Balance 600 ml Intake Oral 600 ml # Voids 1 Current Medications: Meds: Current Medications Diphenhydramine HCl (Benadryl) 25 mg Q6HRS PO ; Start 07/01/16 at 18:00; Stop at 18:00; Status DC Hydroxyzine HCl (Atarax) 25 mg PRN Q6HRS PRN PO ITCHING Last administered on 01:19; Start 07/01/16 at 15:15; Stop 07/06/16 at 04:21; Status DC Lisinopril (Prinivil) 20 mg DAILY PO Last administered on 08/20/16 08:05; Start 07/02/16 at 09:00 Lorazepam (Ativan) 0.5 mg PRN Q4HRS PRN PO ANXIETY / AGITATION Last administered on 07/02/16 21:07; Start 07/01/16 at 15:15; Stop 07/02/16 at 21:44 ; Status DC Nicotine (Nicoderm Cq 21mg) 1 patch DAILY TD Last administered on 08/20/16 08: 04; Start 07/02/16 at 09:00 Lorazepam (Ativan) 0.5 mg PRN Q4HRS PRN IV ANXIETY / AGITATION; Start 07/01/16 at 15:15; Stop 07/01/16 at 19:14; Status DC Diphenhydramine HCl (Benadryl) 25 mg PRN Q6HRS PRN IVP ITCHING; Start 07/01/16 at 15:15; Stop 07/01/16 at 19:14; Status DC Haloperidol Lactate (Haldol) 5 mg PRN Q6HRS PRN IM AGITATION; Start 07/01/16 at 15:15; Stop 07/01/16 at 19:14; Status DC Diphenhydramine HCl (Benadryl) 25 mg PRN Q6HRS PRN PO ITCHING Last administered on 07/01/16 20:56; Start 07/01/16 at 18:00 Acetaminophen/ Hydrocodone Bitart (Lortab 5/325) 1 tab PRN BID PRN PO PAIN Last administered on 08/06/16 13:12; Start 07/02/16 at 21:45 Olanzapine (Zyprexa Zydis) 2.5 mg PRN Q2HR PRN PO PSYCHOSIS Last administered on 08/17/16 10:22; Start 07/02/16 at 21:45 Mirtazapine (Remeron) 15 mg QHS PO Last administered on 08/20/16 19:16; Start 07/03/16 at 21:00 Citalopram Hydrobromide (Celexa) 10 mg DAILY PO Last administered on 08/20/16 08:05; Start 07/03/16 at 09:00 Risperidone (Risperdal) 0.25 mg BID PO Last administered on 07/10/16 08:54; Start 07/03/16 at 21:00; Stop 07/10/16 at 15:18; Status DC Docusate Calcium (Surfak) 240 mg DAILY PO Last administered on 08/20/16 08:05 ; Start 07/04/16 at 21:00 Magnesium Hydroxide (Milk Of Magnesia) 2,400 mg PRN QHS PRN PO CONSTIPATION; Start 07/04/16 at 18:15 Trazodone HCl (Desyrel) 50 mg QHS PO Last administered on 07/14/16 20:10; Start 07/05/16 at 21:00; Stop 07/15/16 at 13:52; Status DC Trazodone HCl (Desyrel) 50 mg PRN QHS PRN PO INSOMNIA Last administered on 21:27; Start 07/05/16 at 20:45; Stop 07/15/16 at 13:52; Status DC Hydroxyzine HCl (Atarax) 50 mg PRN Q2HR PRN PO Psychosis Last administered on 10:22; Start 07/06/16 at 04:30 Fentanyl (Duragesic 12mcg/ Hr) 1 patch Q3DAYS TD Last administered on 08:08; Start 07/08/16 at 18:30 Risperidone (Risperdal) 0.25 mg TID PO Last administered on 07/24/16 13:20; Start 07/10/16 at 21:00; Stop 07/24/16 at 18:29; Status DC Buspirone HCl (Buspar) 5 mg TID PO Last administered on 07/13/16 12:28; Start 07/10/16 at 21:00; Stop 07/13/16 at 15:32; Status DC Buspirone HCl (Buspar) 10 mg BID PO Last administered on 07/27/16 09:32; Start 07/13/16 at 21:00; Stop 07/27/16 at 18:29; Status DC Divalproex Sodium (Depakote Sprinkles) 125 mg BID PO Last administered on 07:46; Start 07/13/16 at 21:00; Stop 07/19/16 at 11:49; Status DC Vitamin D (Vitamin D3) 2,000 unit BIDPCLD PO Last administered on 08/20/16 08: 05; Start 07/14/16 at 12:30 Trazodone HCl (Desyrel) 100 mg QHS PO Last administered on 08/20/16 19:16; Start 07/15/16 at 21:00 Trazodone HCl (Desyrel) 100 mg PRN QHS PO ; Start 07/15/16 at 13:45; Stop at 23:01; Status DC Trazodone HCl (Desyrel) 100 mg PRN QHS PRN PO INSOMNIA Last administered on 00:53; Start 07/15/16 at 23:00 Quetiapine Fumarate (SEROquel) 50 mg 1X ONCE PO Last administered on 07/16/16 00:44; Start 07/16/16 at 00:30; Stop 07/16/16 at 00:31; Status DC Temazepam (Restoril) 30 mg PRN QHS PRN PO INSOMNIA Last administered on 19:04; Start 07/16/16 at 18:30; Stop 08/09/16 at 18:24; Status DC Divalproex Sodium (Depakote Sprinkles) 250 mg BID PO Last administered on 12:20; Start 07/19/16 at 21:00; Stop 07/22/16 at 18:23; Status DC Acetaminophen (Tylenol) 650 mg PRN Q6HRS PRN PO PAIN / TEMP Last administered on 08/09/16 16:38; Start 07/22/16 at 15:30 Divalproex Sodium (Depakote Sprinkles) 375 mg BID PO Last administered on 08:58; Start 07/22/16 at 21:00; Stop 08/04/16 at 17:56; Status DC Melatonin 6 mg QHS PO Last administered on 08/20/16 19:16; Start 07/22/16 at 21:00 Risperidone (Risperdal) 0.25 mg QID PO Last administered on 08/20/16 19:16; Start 07/24/16 at 21:00 Lorazepam (Ativan) 1 mg DAILY IM ; Start 07/27/16 at 09:00; Stop 07/27/16 at 09: 00; Status DC Lorazepam (Ativan) 1 mg 14 IM Last administered on 07/28/16 13:47; Start 07/26 at 15:00; Stop 07/29/16 at 14:13; Status DC Haloperidol Lactate (Haldol) 5 mg 1X ONCE IM Last administered on 07/27/16 16 :15; Start 07/27/16 at 16:15; Stop 07/27/16 at 16:16; Status DC Haloperidol Lactate (Haldol) 5 mg 14 IM Last administered on 07/28/16 13:46; Start 07/28/16 at 14:00; Stop 07/29/16 at 14:13; Status DC Buspirone HCl (Buspar) 10 mg TID PO Last administered on 08/04/16 08:58; Start 07/27/16 at 21:00; Stop 08/04/16 at 17:56; Status DC Trazodone HCl (Desyrel) 12.5 mg TIDWMEALS PO Last administered on 08/03/16 11: 58; Start 07/28/16 at 08:00; Stop 08/03/16 at 13:40; Status DC Fosfomycin Tromethamine (Monurol) 3 gm 1X ONCE PO Last administered on 06:27; Start 07/29/16 at 06:30; Stop 07/29/16 at 06:32; Status DC Trazodone HCl (Desyrel) 25 mg TIDWMEALS PO Last administered on 08/06/16 07:54 ; Start 08/03/16 at 17:00; Stop 08/06/16 at 11:24; Status DC Buspirone HCl (Buspar) 10 mg QID PO Last administered on 08/20/16 19:16; Start 08/04/16 at 21:00 Haloperidol Lactate (Haldol) 5 mg AFTRNOON IM Last administered on 08/17/16 13: 36; Start 08/05/16 at 13:15; Stop 08/19/16 at 18:30; Status DC Lorazepam (Ativan) 0.5 mg AFTRNOON IM Last administered on 08/17/16 13:36; Start 08/05/16 at 13:15; Stop 08/19/16 at 18:30; Status DC Oxcarbazepine (Trileptal) 300 mg BID PO Last administered on 08/11/16 09:48; Start 08/06/16 at 21:00; Stop 08/11/16 at 18:43; Status DC Trazodone HCl (Desyrel) 50 mg BID PO Last administered on 08/20/16 19:17; Start 08/06/16 at 21:00 Trazodone HCl (Desyrel) 50 mg 14 PO Last administered on 08/20/16 15:47; Start 08/06/16 at 14:00 Temazepam (Restoril) 15 mg PRN QHS PRN PO INSOMNIA Last administered on 19:28; Start 08/09/16 at 18:30 Oxcarbazepine (Trileptal) 300 mg TID PO Last administered on 08/20/16 19:16; Start 08/11/16 at 21:00 Haloperidol Decanoate (Haldol Decanoate Im Extended Release) 100 mg QMONTH IM Last administered on 08/13/16 21:04; Start 08/13/16 at 21:00 Haloperidol Lactate (Haldol) 5 mg QODAY IM Last administered on 08/20/16 15:52 ; Start 08/20/16 at 13:00 Lorazepam (Ativan) 0.5 mg QODAY IM Last administered on 08/20/16 15:52; Start 08/20/16 at 13:00 Active Scripts Active Lisinopril 20 Mg Tablet 1 Tab PO DAILY NICODERM CQ 21mg (Nicotine) 1 Each Patch.td24 1 Patch TP DAILY Lorazepam 0.5 Mg Tablet 1 Tab PO Q4HRS PRN Hydroxyzine Hcl 25 Mg Tablet 1 Tab PO Q6HRS PRN Benadryl (Diphenhydramine Hcl) 25 Mg Capsule 1 Cap PO Q6HRS CAITLYN BHATT MD August 20, 2016 20:53
--- NOTE | 2016-08-20 22:52 | NUR ---
Behavior Intervention Response and Plan: BIRP Note: Behavior: Assumed Care of patient, patient located in Hallway at shift change. Patient exhibited the following behavior Restless, Disorganized, Anxious. Brief assessment on rounds of vital signs, medication needs, lab studies, and pain. Treatment plan problems Dementia W/ BD Altered Thought process and Fall Risk. Intervention: Patient assessed and the following interventions initiated safety checks 15 Minute Checks Cognitive Assessment , Head to toe Assessment , Medications. Response: After interactions and interventions patient responded in the following manner, Disorganized , Cooperative ,Drowsy. Continue to assess behaviors and condition will continue to monitor throughout the shift as needed. Plan: Continue to monitor Master Treatment Plan for patient's progress toward short term goals of Decreased Agitation, Decreased Aggression, terminal clerk goals to return to previous living setting vs placement. Continue to assess patient for changes in above assessment. Monitor for medication needs, pain, and safety concerns. Hourly rounding performed to ensure safe environment.
--- NOTE | 2016-08-21 03:38 | NUR ---
Nursing Note: Pt woke up at approximate 0300 agitated speaking in English asking to go downstairs to look for her boyfriend, Edgar. Pt unable to redirect. Pacing, exit seeking. PRN given. Will continue to monitor.
[2016-08-21 06:29] VITALS: BP 134/75
[2016-08-21] MEDS: LISINOPRIL 20 MG TABLET PO SCH (09:00)
--- NOTE | 2016-08-21 10:00 | NUR ---
THERAPEUTIC RECREATION GROUP NOTE TITLE :Characteristics of a [id number] ACTIVITY : Cognitive Stimulation GOAL : Stimulate memory, Increase problem solving DURATION : 45 minutes RESPONSE : No participation.
[2016-08-21] MEDS: NICOTINE 21MG PATCH. TD SCH (10:15)
[2016-08-21] MEDS: DOCUSATE CALCIUM 240 MG CAPSULE PO SCH (10:15)
[2016-08-21] MEDS: risperiDONE 0.25 MG TABLET. PO SCH ×4 (10:16→19:22)
[2016-08-21] MEDS: busPIRone 10 MG TABLET. PO SCH ×4 (10:16→19:20)
[2016-08-21] MEDS: CITALOPRAM 10 MG TABLET. PO SCH (10:16)
[2016-08-21] MEDS: traZODone 50 MG TABLET. PO SCH ×3 (10:16→19:22)
--- NOTE | 2016-08-21 10:35 | NUR ---
SW faxed updated notes to [facility] and [facility]. SW will countiue to look for placement. Pt currently has no payer source for LTC as well as getting IM's and still having behaviors making it difficult for SW to even find facilities willing to look at paperwork. [facility] unable to accept due to no Medicaid.
--- NOTE | 2016-08-21 11:10 | NUR ---
Behavior Intervention Response and Plan: BIRP Note: Behavior: Assumed Care of patient, patient located in Hallway at shift change. Patient exhibited the following behavior Wandering, Disorganized, Compliant. Brief assessment on rounds of vital signs, medication needs, lab studies, and pain. Treatment plan problems . Intervention: Patient assessed and the following interventions initiated safety checks 15 Minute Checks Cognitive Assessment , Head to toe Assessment , Medications. Response: After interactions and interventions patient responded in the following manner, Wandering , Exit Seeking ,Disorganized. Continue to assess behaviors and condition will continue to monitor throughout the shift as needed. Plan: Continue to monitor Master Treatment Plan for patient's progress toward short term goals of Decreased Anxiety, Medication Compliance, prison goals to return to previous living setting vs placement. Continue to assess patient for changes in above assessment. Monitor for medication needs, pain, and safety concerns. Hourly rounding performed to ensure safe environment.
--- NOTE | 2016-08-21 11:30 | NUR ---
THERAPEUTIC RECREATION GROUP NOTE TITLE :Movement to Music: Flexibility ACTIVITY : Movement/ Exercise GOAL : Increase morale, attention, flexibility. Decrease stress/anxiety. DURATION : 25 minutes RESPONSE : Minimal participation. Pt. sat with the group the entire time; however, did not participate in the moves unless directly encouraged. When she did participate, she barely moved her body.
[2016-08-21] MEDS: CHOLECALCIFEROL (VITAMIN D3) 1,000 UNIT TABLET PO SCH ×3 (13:23→19:22)
--- NOTE | 2016-08-21 14:04 | NUR ---
Facility will be out to assess pt for possible admission.
--- NOTE | 2016-08-21 14:45 | NUR ---
THERAPEUTIC RECREATION GROUP NOTE TITLE :Mother's Day Jeopardy ACTIVITY : Cognitive Stimulation GOAL : Stimulate memory, Increase problem solving DURATION : 45 minutes RESPONSE : Minimal participation. Pt. needed one on one assistance to explain, clarify and repeat questions. Pt. was cooperative and sat with the group the entire time.
[2016-08-21 15:23] VITALS: BP 120/74
[2016-08-21] MEDS: hydrOXYzine HCL 25 MG TABLET PO PRN (16:56)
--- NOTE | 2016-08-21 17:00 | NUR ---
Pt yelling in nepali loudly and becoming increasingly anxious. Pt standing at nurses station repeatedly knocking on window. Redirection unsuccessful. PRN Atarax and Zydis administered. Will continue to monitor.
[2016-08-21] MEDS: traZODone 100 MG TABLET. PO SCH (19:20)
[2016-08-21] MEDS: MIRTAZAPINE 15 MG TABLET PO SCH (19:20)
[2016-08-21] MEDS: MELATONIN 3 MG TABLET PO SCH (19:22)
--- NOTE | 2016-08-21 20:52 | PDOC ---
Exam Yaya Demential Exam: Yaya Note: Please also refer to the separate dictated note~for this date of service dictated separately.~Patient seen individually. Discussed the patient with Nursing staff reviewed the chart.~Reviewed interim history and current functioning. Reviewed vital signs,~Labs/ Radiology~and current medications noted below. Continue current treatment with the changes noted in the dictated addendum note Assessment: Vital Signs: Vital Signs Date Time Temp Pulse Resp B/P (MAP) Pulse Ox O2 Delivery O2 Flow Rate FiO2 08/21/16 15:23 97.7 61 16 120/74 (89) 96 I&O Intake and Output 08/21/16 07:00 Intake Total 950 ml Balance 950 ml Intake Oral 950 ml # Voids 1 # Bowel Movements 1 Current Medications: Meds: Current Medications Diphenhydramine HCl (Benadryl) 25 mg Q6HRS PO ; Start 07/01/16 at 18:00; Stop at 18:00; Status DC Hydroxyzine HCl (Atarax) 25 mg PRN Q6HRS PRN PO ITCHING Last administered on 01:19; Start 07/01/16 at 15:15; Stop 07/06/16 at 04:21; Status DC Lisinopril (Prinivil) 20 mg DAILY PO Last administered on 08/20/16 08:05; Start 07/02/16 at 09:00 Lorazepam (Ativan) 0.5 mg PRN Q4HRS PRN PO ANXIETY / AGITATION Last administered on 07/02/16 21:07; Start 07/01/16 at 15:15; Stop 07/02/16 at 21:44 ; Status DC Nicotine (Nicoderm Cq 21mg) 1 patch DAILY TD Last administered on 08/21/16 10: 15; Start 07/02/16 at 09:00 Lorazepam (Ativan) 0.5 mg PRN Q4HRS PRN IV ANXIETY / AGITATION; Start 07/01/16 at 15:15; Stop 07/01/16 at 19:14; Status DC Diphenhydramine HCl (Benadryl) 25 mg PRN Q6HRS PRN IVP ITCHING; Start 07/01/16 at 15:15; Stop 07/01/16 at 19:14; Status DC Haloperidol Lactate (Haldol) 5 mg PRN Q6HRS PRN IM AGITATION; Start 07/01/16 at 15:15; Stop 07/01/16 at 19:14; Status DC Diphenhydramine HCl (Benadryl) 25 mg PRN Q6HRS PRN PO ITCHING Last administered on 07/01/16 20:56; Start 07/01/16 at 18:00 Acetaminophen/ Hydrocodone Bitart (Lortab 5/325) 1 tab PRN BID PRN PO PAIN Last administered on 08/06/16 13:12; Start 07/02/16 at 21:45 Olanzapine (Zyprexa Zydis) 2.5 mg PRN Q2HR PRN PO PSYCHOSIS Last administered on 08/21/16 16:56; Start 07/02/16 at 21:45 Mirtazapine (Remeron) 15 mg QHS PO Last administered on 08/21/16 19:20; Start 07/03/16 at 21:00 Citalopram Hydrobromide (Celexa) 10 mg DAILY PO Last administered on 08/21/16 10:16; Start 07/03/16 at 09:00 Risperidone (Risperdal) 0.25 mg BID PO Last administered on 07/10/16 08:54; Start 07/03/16 at 21:00; Stop 07/10/16 at 15:18; Status DC Docusate Calcium (Surfak) 240 mg DAILY PO Last administered on 08/21/16 10:15 ; Start 07/04/16 at 21:00 Magnesium Hydroxide (Milk Of Magnesia) 2,400 mg PRN QHS PRN PO CONSTIPATION; Start 07/04/16 at 18:15 Trazodone HCl (Desyrel) 50 mg QHS PO Last administered on 07/14/16 20:10; Start 07/05/16 at 21:00; Stop 07/15/16 at 13:52; Status DC Trazodone HCl (Desyrel) 50 mg PRN QHS PRN PO INSOMNIA Last administered on 21:27; Start 07/05/16 at 20:45; Stop 07/15/16 at 13:52; Status DC Hydroxyzine HCl (Atarax) 50 mg PRN Q2HR PRN PO Psychosis Last administered on 16:56; Start 07/06/16 at 04:30 Fentanyl (Duragesic 12mcg/ Hr) 1 patch Q3DAYS TD Last administered on 08:08; Start 07/08/16 at 18:30 Risperidone (Risperdal) 0.25 mg TID PO Last administered on 07/24/16 13:20; Start 07/10/16 at 21:00; Stop 07/24/16 at 18:29; Status DC Buspirone HCl (Buspar) 5 mg TID PO Last administered on 07/13/16 12:28; Start 07/10/16 at 21:00; Stop 07/13/16 at 15:32; Status DC Buspirone HCl (Buspar) 10 mg BID PO Last administered on 07/27/16 09:32; Start 07/13/16 at 21:00; Stop 07/27/16 at 18:29; Status DC Divalproex Sodium (Depakote Sprinkles) 125 mg BID PO Last administered on 07:46; Start 07/13/16 at 21:00; Stop 07/19/16 at 11:49; Status DC Vitamin D (Vitamin D3) 2,000 unit BIDPCLD PO Last administered on 08/21/16 19: 22; Start 07/14/16 at 12:30 Trazodone HCl (Desyrel) 100 mg QHS PO Last administered on 08/21/16 19:20; Start 07/15/16 at 21:00 Trazodone HCl (Desyrel) 100 mg PRN QHS PO ; Start 07/15/16 at 13:45; Stop at 23:01; Status DC Trazodone HCl (Desyrel) 100 mg PRN QHS PRN PO INSOMNIA Last administered on 00:53; Start 07/15/16 at 23:00 Quetiapine Fumarate (SEROquel) 50 mg 1X ONCE PO Last administered on 07/16/16 00:44; Start 07/16/16 at 00:30; Stop 07/16/16 at 00:31; Status DC Temazepam (Restoril) 30 mg PRN QHS PRN PO INSOMNIA Last administered on 19:04; Start 07/16/16 at 18:30; Stop 08/09/16 at 18:24; Status DC Divalproex Sodium (Depakote Sprinkles) 250 mg BID PO Last administered on 12:20; Start 07/19/16 at 21:00; Stop 07/22/16 at 18:23; Status DC Acetaminophen (Tylenol) 650 mg PRN Q6HRS PRN PO PAIN / TEMP Last administered on 08/09/16 16:38; Start 07/22/16 at 15:30 Divalproex Sodium (Depakote Sprinkles) 375 mg BID PO Last administered on 08:58; Start 07/22/16 at 21:00; Stop 08/04/16 at 17:56; Status DC Melatonin 6 mg QHS PO Last administered on 08/21/16 19:22; Start 07/22/16 at 21:00 Risperidone (Risperdal) 0.25 mg QID PO Last administered on 08/21/16 19:22; Start 07/24/16 at 21:00 Lorazepam (Ativan) 1 mg DAILY IM ; Start 07/27/16 at 09:00; Stop 07/27/16 at 09: 00; Status DC Lorazepam (Ativan) 1 mg 14 IM Last administered on 07/28/16 13:47; Start 07/26 at 15:00; Stop 07/29/16 at 14:13; Status DC Haloperidol Lactate (Haldol) 5 mg 1X ONCE IM Last administered on 07/27/16 16 :15; Start 07/27/16 at 16:15; Stop 07/27/16 at 16:16; Status DC Haloperidol Lactate (Haldol) 5 mg 14 IM Last administered on 07/28/16 13:46; Start 07/28/16 at 14:00; Stop 07/29/16 at 14:13; Status DC Buspirone HCl (Buspar) 10 mg TID PO Last administered on 08/04/16 08:58; Start 07/27/16 at 21:00; Stop 08/04/16 at 17:56; Status DC Trazodone HCl (Desyrel) 12.5 mg TIDWMEALS PO Last administered on 08/03/16 11: 58; Start 07/28/16 at 08:00; Stop 08/03/16 at 13:40; Status DC Fosfomycin Tromethamine (Monurol) 3 gm 1X ONCE PO Last administered on 06:27; Start 07/29/16 at 06:30; Stop 07/29/16 at 06:32; Status DC Trazodone HCl (Desyrel) 25 mg TIDWMEALS PO Last administered on 08/06/16 07:54 ; Start 08/03/16 at 17:00; Stop 08/06/16 at 11:24; Status DC Buspirone HCl (Buspar) 10 mg QID PO Last administered on 08/21/16 19:20; Start 08/04/16 at 21:00 Haloperidol Lactate (Haldol) 5 mg AFTRNOON IM Last administered on 08/17/16 13: 36; Start 08/05/16 at 13:15; Stop 08/19/16 at 18:30; Status DC Lorazepam (Ativan) 0.5 mg AFTRNOON IM Last administered on 08/17/16 13:36; Start 08/05/16 at 13:15; Stop 08/19/16 at 18:30; Status DC Oxcarbazepine (Trileptal) 300 mg BID PO Last administered on 08/11/16 09:48; Start 08/06/16 at 21:00; Stop 08/11/16 at 18:43; Status DC Trazodone HCl (Desyrel) 50 mg BID PO Last administered on 08/21/16 19:22; Start 08/06/16 at 21:00 Trazodone HCl (Desyrel) 50 mg 14 PO Last administered on 08/21/16 14:46; Start 08/06/16 at 14:00 Temazepam (Restoril) 15 mg PRN QHS PRN PO INSOMNIA Last administered on 19:28; Start 08/09/16 at 18:30 Oxcarbazepine (Trileptal) 300 mg TID PO Last administered on 08/21/16 19:21; Start 08/11/16 at 21:00 Haloperidol Decanoate (Haldol Decanoate Im Extended Release) 100 mg QMONTH IM Last administered on 08/13/16 21:04; Start 08/13/16 at 21:00 Haloperidol Lactate (Haldol) 5 mg QODAY IM Last administered on 08/20/16 15:52 ; Start 08/20/16 at 13:00 Lorazepam (Ativan) 0.5 mg QODAY IM Last administered on 08/20/16 15:52; Start 08/20/16 at 13:00 Active Scripts Active Lisinopril 20 Mg Tablet 1 Tab PO DAILY NICODERM CQ 21mg (Nicotine) 1 Each Patch.td24 1 Patch TP DAILY Lorazepam 0.5 Mg Tablet 1 Tab PO Q4HRS PRN Hydroxyzine Hcl 25 Mg Tablet 1 Tab PO Q6HRS PRN Benadryl (Diphenhydramine Hcl) 25 Mg Capsule 1 Cap PO Q6HRS CAITLYN BHATT MD August 21, 2016 20:52
--- NOTE | 2016-08-21 22:18 | NUR ---
Behavior Intervention Response and Plan: BIRP Note: Behavior: Assumed Care of patient, patient located in Hallway at shift change. Patient exhibited the following behavior Restless, Wandering, Disorganized. Brief assessment on rounds of vital signs, medication needs, lab studies, and pain. Treatment plan problems Dementia w/ BD, Altered Thought Process, and Fall Risk. Intervention: Patient assessed and the following interventions initiated safety checks 15 Minute Checks Cognitive Assessment , Head to toe Assessment , Medications. Response: After interactions and interventions patient responded in the following manner, Restless , Disorganized ,Drowsy. Continue to assess behaviors and condition will continue to monitor throughout the shift as needed. Plan: Continue to monitor Master Treatment Plan for patient's progress toward short term goals of Medication Compliance, Decreased Aggression, fdc goals to return to previous living setting vs placement. Continue to assess patient for changes in above assessment. Monitor for medication needs, pain, and safety concerns. Hourly rounding performed to ensure safe environment.
--- NOTE | 2016-08-22 02:03 | PN ---
DATE: 08/19/2016 This is a late entry, 08/19/2016, covers elements not covered in my initial note. SUBJECTIVE: The patient did not receive her IM Haldol, Ativan on 08/19/2016. She is more compliant taking her medications whole. She did have a shower, but was agitated during the shower scratching at the . The scheduled IM Haldol and Ativan will be changed to every other day. REVIEW OF SYSTEMS: No CV, , pulmonary, eye, ENT system symptoms on review. Reliability poor. MENTAL STATUS EXAM: Oriented to herself. Insight, judgment, recent and remote memory, attention, concentration, fund of knowledge poor, consistent with her diagnosis mentioned in my initial note. PLAN: Continue current psychotropics with the reduction of the IM Haldol, Ativan. Continue Haldol Decanoate monthly, Trileptal, and the rest as noted in my initial note. CAITLYN BHATT MD DR: ALICIA/shanon JOB#: [id number] / [id number]
--- NOTE | 2016-08-22 02:08 | PN ---
DATE: 08/20/2016 This is a late entry 08/20/2016, covers the elements not covered in my initial note. SUBJECTIVE: The patient was staffed at a treatment team meeting with the entire team 08/20/2016, met with her individually evening of 08/20/2016. She was combative with showers, got agitated and then took a nap after sleeping about 6-1/4 hours. Appetite 85%, increasingly paranoid, looking for her purse, received her IM on 08/20/2016. REVIEW OF SYSTEMS: No CV, , pulmonary, eye, ENT system symptoms on review. Reliability poor. MENTAL STATUS EXAM: Oriented to herself. Insight, judgment, recent and remote memory, attention, concentration, fund of knowledge poor, consistent with her diagnosis mentioned in my initial note. PLAN: Continue current psychotropics. Social service staff are looking for placement that should be able to manage her on her current psychotropics and ongoing behaviors since we seemed to be reaching a plateau with what else we can do from a psychiatric standpoint. MAN Quinten BHATT MD DR: ALICIA/shanon JOB#: [id number] / [id number]
[2016-08-22 06:30] VITALS: BP 181/92
[2016-08-22] MEDS: CITALOPRAM 10 MG TABLET. PO SCH (08:01)
[2016-08-22] MEDS: busPIRone 10 MG TABLET. PO SCH ×4 (08:01→19:44)
[2016-08-22] MEDS: traZODone 50 MG TABLET. PO SCH ×3 (08:01→19:44)
[2016-08-22] MEDS: LISINOPRIL 20 MG TABLET PO SCH (08:02)
[2016-08-22] MEDS: DOCUSATE CALCIUM 240 MG CAPSULE PO SCH (08:02)
[2016-08-22] MEDS: risperiDONE 0.25 MG TABLET. PO SCH ×4 (08:02→19:45)
[2016-08-22] MEDS: fentaNYL 12MCG/HR 1 PATCH PATCH TD SCH (08:03)
[2016-08-22] MEDS: NICOTINE 21MG PATCH. TD SCH (08:03)
[2016-08-22 08:11] LABS: BASO # 0.1 x10^3/uL (0.0-0.2); BASO % 1 % (0-3); EOS # 0.4 x10^3/uL (0.0-0.7); EOS % 4 % (0-3); HEMATOCRIT 34.6 % (36.0-47.0); HEMOGLOBIN 11.4 g/dL (12.0-15.5); LYMPH % 31 % (24-48); MEAN CORPUSCULAR HEMOGLOBIN 30 pg (25-35); MEAN CORPUSCULAR HGB CONC 33 g/dL (31-37); MEAN CORPUSCULAR VOLUME 90 fL (79-100); MONO # 0.8 x10^3/uL (0.0-1.1); MONO % 9 % (0-9); NEUT # 5.4 x10^3uL (1.8-7.7); NEUT % 56 % (31-73); PLATELET COUNT 377 x10^3/uL (140-400); RED BLOOD COUNT 3.87 x10^6/uL (3.50-5.40); RED CELL DISTRIBUTION WIDTH 14.9 % (11.5-14.5); WHITE BLOOD COUNT 9.6 x10^3/uL (4.0-11.0)
[2016-08-22 08:31] LABS: ALBUMIN 3.2 g/dL (3.4-5.0); ALBUMIN/GLOBULIN RATIO 0.8 (1.0-1.7); CREATININE 0.8 mg/dL (0.6-1.0); GFR 70.7; POTASSIUM 4.2 mmol/L (3.5-5.1); TOTAL BILIRUBIN 0.3 mg/dL (0.2-1.0); TOTAL PROTEIN 7.4 g/dL (6.4-8.2)
[2016-08-22] MEDS: HALOPERIDOL LACT 5 MG/ML VIAL. IM SCH (09:00)
--- NOTE | 2016-08-22 10:08 | NUR ---
Behavior Intervention Response and Plan: BIRP Note: Behavior: Assumed Care of patient, patient located in Hallway at shift change. Patient exhibited the following behavior Restless, Wandering, Disorganized. Brief assessment on rounds of vital signs, medication needs, lab studies, and pain. Treatment plan problems Dementia w/ BD, Altered Thought Process, and Fall Risk. Intervention: Patient assessed and the following interventions initiated safety checks 15 Minute Checks Cognitive Assessment , Head to toe Assessment , Medications. Response: After interactions and interventions patient responded in the following manner, Restless, confused, and Disorganized. Continue to assess behaviors and condition will continue to monitor throughout the shift as needed. Plan: Continue to monitor Master Treatment Plan for patient's progress toward short term goals of Medication Compliance, Decreased Aggression, intermediate teacher goals to return to previous living setting vs placement. Continue to assess patient for changes in above assessment. Monitor for medication needs, pain, and safety concerns. Hourly rounding performed to ensure safe environment.
[2016-08-22] MEDS: CHOLECALCIFEROL (VITAMIN D3) 1,000 UNIT TABLET PO SCH (13:10)
[2016-08-22 13:16] VITALS: BP 141/67
--- NOTE | 2016-08-22 14:55 | NUR ---
Pt continuously up to nurses station asking for her purse. Pt asking staff and other pts who walk by her. Staff was unable to redirect pt. PRN rhianna cintron given.
[2016-08-22 15:51] VITALS: BP 151/87
[2016-08-22] MEDS: MIRTAZAPINE 15 MG TABLET PO SCH (19:44)
[2016-08-22] MEDS: MELATONIN 3 MG TABLET PO SCH (19:44)
[2016-08-22] MEDS: traZODone 100 MG TABLET. PO SCH (19:45)
--- NOTE | 2016-08-22 20:37 | PDOC ---
Exam Yaya Demential Exam: Yaya Note: Please also refer to the separate dictated note~for this date of service dictated separately.~Patient seen individually. Discussed the patient with Nursing staff reviewed the chart.~Reviewed interim history and current functioning. Reviewed vital signs,~Labs/ Radiology~and current medications noted below. Continue current treatment with the changes noted in the dictated addendum note Assessment: Vital Signs: Vital Signs Date Time Temp Pulse Resp B/P (MAP) Pulse Ox O2 Delivery O2 Flow Rate FiO2 08/22/16 15:51 97.8 73 16 151/87 (108) 97 I&O Intake and Output 08/22/16 07:00 Intake Total 1140 ml Balance 1140 ml Intake Oral 1140 ml # Voids 2 Labs: Laboratory Tests Test 08/22/16 07:38 White Blood Count 9.6 x10^3/uL (4.0-11.0) Red Blood Count 3.87 x10^6/uL (3.50-5.40) Hemoglobin 11.4 g/dL (12.0-15.5) L Hematocrit 34.6 % (36.0-47.0) L Mean Corpuscular Volume 90 fL (79-100) Mean Corpuscular Hemoglobin 30 pg (25-35) Mean Corpuscular Hemoglobin Concent 33 g/dL (31-37) Red Cell Distribution Width 14.9 % (11.5-14.5) H Platelet Count 377 x10^3/uL (140-400) Neutrophils (%) (Auto) 56 % (31-73) Lymphocytes (%) (Auto) 31 % (24-48) Monocytes (%) (Auto) 9 % (0-9) Eosinophils (%) (Auto) 4 % (0-3) H Basophils (%) (Auto) 1 % (0-3) Neutrophils # (Auto) 5.4 x10^3uL (1.8-7.7) Lymphocytes # (Auto) 3.0 x10^3/uL (1.0-4.8) Monocytes # (Auto) 0.8 x10^3/uL (0.0-1.1) Eosinophils # (Auto) 0.4 x10^3/uL (0.0-0.7) Basophils # (Auto) 0.1 x10^3/uL (0.0-0.2) Sodium Level 145 mmol/L (136-145) Potassium Level 4.2 mmol/L (3.5-5.1) Chloride Level 108 mmol/L (98-107) H Carbon Dioxide Level 28 mmol/L (21-32) Anion Gap 9 (6-14) Blood Urea Nitrogen 15 mg/dL (7-20) Creatinine 0.8 mg/dL (0.6-1.0) Estimated GFR (Cockcroft-Gault) 70.7 BUN/Creatinine Ratio 19 (6-20) Glucose Level 76 mg/dL (70-99) Calcium Level 9.0 mg/dL (8.5-10.1) Total Bilirubin 0.3 mg/dL (0.2-1.0) Aspartate Amino Transferase (AST) 16 U/L (15-37) Alanine Aminotransferase (ALT) 31 U/L (14-59) Alkaline Phosphatase 88 U/L (46-116) Total Protein 7.4 g/dL (6.4-8.2) Albumin 3.2 g/dL (3.4-5.0) L Albumin/Globulin Ratio 0.8 (1.0-1.7) L Current Medications: Meds: Current Medications Diphenhydramine HCl (Benadryl) 25 mg Q6HRS PO ; Start 07/01/16 at 18:00; Stop at 18:00; Status DC Hydroxyzine HCl (Atarax) 25 mg PRN Q6HRS PRN PO ITCHING Last administered on 01:19; Start 07/01/16 at 15:15; Stop 07/06/16 at 04:21; Status DC Lisinopril (Prinivil) 20 mg DAILY PO Last administered on 08/22/16 08:02; Start 07/02/16 at 09:00 Lorazepam (Ativan) 0.5 mg PRN Q4HRS PRN PO ANXIETY / AGITATION Last administered on 07/02/16 21:07; Start 07/01/16 at 15:15; Stop 07/02/16 at 21:44 ; Status DC Nicotine (Nicoderm Cq 21mg) 1 patch DAILY TD Last administered on 08/22/16 08: 03; Start 07/02/16 at 09:00 Lorazepam (Ativan) 0.5 mg PRN Q4HRS PRN IV ANXIETY / AGITATION; Start 07/01/16 at 15:15; Stop 07/01/16 at 19:14; Status DC Diphenhydramine HCl (Benadryl) 25 mg PRN Q6HRS PRN IVP ITCHING; Start 07/01/16 at 15:15; Stop 07/01/16 at 19:14; Status DC Haloperidol Lactate (Haldol) 5 mg PRN Q6HRS PRN IM AGITATION; Start 07/01/16 at 15:15; Stop 07/01/16 at 19:14; Status DC Diphenhydramine HCl (Benadryl) 25 mg PRN Q6HRS PRN PO ITCHING Last administered on 07/01/16 20:56; Start 07/01/16 at 18:00 Acetaminophen/ Hydrocodone Bitart (Lortab 5/325) 1 tab PRN BID PRN PO PAIN Last administered on 08/06/16 13:12; Start 07/02/16 at 21:45 Olanzapine (Zyprexa Zydis) 2.5 mg PRN Q2HR PRN PO PSYCHOSIS Last administered on 08/22/16 14:55; Start 07/02/16 at 21:45 Mirtazapine (Remeron) 15 mg QHS PO Last administered on 08/22/16 19:44; Start 07/03/16 at 21:00 Citalopram Hydrobromide (Celexa) 10 mg DAILY PO Last administered on 08/22/16 08:01; Start 07/03/16 at 09:00 Risperidone (Risperdal) 0.25 mg BID PO Last administered on 07/10/16 08:54; Start 07/03/16 at 21:00; Stop 07/10/16 at 15:18; Status DC Docusate Calcium (Surfak) 240 mg DAILY PO Last administered on 08/22/16 08:02 ; Start 07/04/16 at 21:00 Magnesium Hydroxide (Milk Of Magnesia) 2,400 mg PRN QHS PRN PO CONSTIPATION; Start 07/04/16 at 18:15 Trazodone HCl (Desyrel) 50 mg QHS PO Last administered on 07/14/16 20:10; Start 07/05/16 at 21:00; Stop 07/15/16 at 13:52; Status DC Trazodone HCl (Desyrel) 50 mg PRN QHS PRN PO INSOMNIA Last administered on 21:27; Start 07/05/16 at 20:45; Stop 07/15/16 at 13:52; Status DC Hydroxyzine HCl (Atarax) 50 mg PRN Q2HR PRN PO Psychosis Last administered on 16:56; Start 07/06/16 at 04:30 Fentanyl (Duragesic 12mcg/ Hr) 1 patch Q3DAYS TD Last administered on 08:03; Start 07/08/16 at 18:30 Risperidone (Risperdal) 0.25 mg TID PO Last administered on 07/24/16 13:20; Start 07/10/16 at 21:00; Stop 07/24/16 at 18:29; Status DC Buspirone HCl (Buspar) 5 mg TID PO Last administered on 07/13/16 12:28; Start 07/10/16 at 21:00; Stop 07/13/16 at 15:32; Status DC Buspirone HCl (Buspar) 10 mg BID PO Last administered on 07/27/16 09:32; Start 07/13/16 at 21:00; Stop 07/27/16 at 18:29; Status DC Divalproex Sodium (Depakote Sprinkles) 125 mg BID PO Last administered on 07:46; Start 07/13/16 at 21:00; Stop 07/19/16 at 11:49; Status DC Vitamin D (Vitamin D3) 2,000 unit BIDPCLD PO Last administered on 08/22/16 13: 10; Start 07/14/16 at 12:30 Trazodone HCl (Desyrel) 100 mg QHS PO Last administered on 08/22/16 19:45; Start 07/15/16 at 21:00 Trazodone HCl (Desyrel) 100 mg PRN QHS PO ; Start 07/15/16 at 13:45; Stop at 23:01; Status DC Trazodone HCl (Desyrel) 100 mg PRN QHS PRN PO INSOMNIA Last administered on 00:53; Start 07/15/16 at 23:00 Quetiapine Fumarate (SEROquel) 50 mg 1X ONCE PO Last administered on 07/16/16 00:44; Start 07/16/16 at 00:30; Stop 07/16/16 at 00:31; Status DC Temazepam (Restoril) 30 mg PRN QHS PRN PO INSOMNIA Last administered on 19:04; Start 07/16/16 at 18:30; Stop 08/09/16 at 18:24; Status DC Divalproex Sodium (Depakote Sprinkles) 250 mg BID PO Last administered on 12:20; Start 07/19/16 at 21:00; Stop 07/22/16 at 18:23; Status DC Acetaminophen (Tylenol) 650 mg PRN Q6HRS PRN PO PAIN / TEMP Last administered on 08/09/16 16:38; Start 07/22/16 at 15:30 Divalproex Sodium (Depakote Sprinkles) 375 mg BID PO Last administered on 08:58; Start 07/22/16 at 21:00; Stop 08/04/16 at 17:56; Status DC Melatonin 6 mg QHS PO Last administered on 08/22/16 19:44; Start 07/22/16 at 21:00 Risperidone (Risperdal) 0.25 mg QID PO Last administered on 08/22/16 19:45; Start 07/24/16 at 21:00 Lorazepam (Ativan) 1 mg DAILY IM ; Start 07/27/16 at 09:00; Stop 07/27/16 at 09: 00; Status DC Lorazepam (Ativan) 1 mg 14 IM Last administered on 07/28/16 13:47; Start 07/26 at 15:00; Stop 07/29/16 at 14:13; Status DC Haloperidol Lactate (Haldol) 5 mg 1X ONCE IM Last administered on 07/27/16 16 :15; Start 07/27/16 at 16:15; Stop 07/27/16 at 16:16; Status DC Haloperidol Lactate (Haldol) 5 mg 14 IM Last administered on 07/28/16 13:46; Start 07/28/16 at 14:00; Stop 07/29/16 at 14:13; Status DC Buspirone HCl (Buspar) 10 mg TID PO Last administered on 08/04/16 08:58; Start 07/27/16 at 21:00; Stop 08/04/16 at 17:56; Status DC Trazodone HCl (Desyrel) 12.5 mg TIDWMEALS PO Last administered on 08/03/16 11: 58; Start 07/28/16 at 08:00; Stop 08/03/16 at 13:40; Status DC Fosfomycin Tromethamine (Monurol) 3 gm 1X ONCE PO Last administered on 06:27; Start 07/29/16 at 06:30; Stop 07/29/16 at 06:32; Status DC Trazodone HCl (Desyrel) 25 mg TIDWMEALS PO Last administered on 08/06/16 07:54 ; Start 08/03/16 at 17:00; Stop 08/06/16 at 11:24; Status DC Buspirone HCl (Buspar) 10 mg QID PO Last administered on 08/22/16 19:44; Start 08/04/16 at 21:00 Haloperidol Lactate (Haldol) 5 mg AFTRNOON IM Last administered on 08/17/16 13: 36; Start 08/05/16 at 13:15; Stop 08/19/16 at 18:30; Status DC Lorazepam (Ativan) 0.5 mg AFTRNOON IM Last administered on 08/17/16 13:36; Start 08/05/16 at 13:15; Stop 08/19/16 at 18:30; Status DC Oxcarbazepine (Trileptal) 300 mg BID PO Last administered on 08/11/16 09:48; Start 08/06/16 at 21:00; Stop 08/11/16 at 18:43; Status DC Trazodone HCl (Desyrel) 50 mg BID PO Last administered on 08/22/16 19:44; Start 08/06/16 at 21:00 Trazodone HCl (Desyrel) 50 mg 14 PO Last administered on 08/22/16 13:10; Start 08/06/16 at 14:00 Temazepam (Restoril) 15 mg PRN QHS PRN PO INSOMNIA Last administered on 19:28; Start 08/09/16 at 18:30 Oxcarbazepine (Trileptal) 300 mg TID PO Last administered on 08/22/16 19:45; Start 08/11/16 at 21:00 Haloperidol Decanoate (Haldol Decanoate Im Extended Release) 100 mg QMONTH IM Last administered on 08/13/16 21:04; Start 08/13/16 at 21:00 Haloperidol Lactate (Haldol) 5 mg QODAY IM Last administered on 08/20/16 15:52 ; Start 08/20/16 at 13:00 Lorazepam (Ativan) 0.5 mg QODAY IM Last administered on 08/20/16 15:52; Start 08/20/16 at 13:00 Active Scripts Active Lisinopril 20 Mg Tablet 1 Tab PO DAILY NICODERM CQ 21mg (Nicotine) 1 Each Patch.td24 1 Patch TP DAILY Lorazepam 0.5 Mg Tablet 1 Tab PO Q4HRS PRN Hydroxyzine Hcl 25 Mg Tablet 1 Tab PO Q6HRS PRN Benadryl (Diphenhydramine Hcl) 25 Mg Capsule 1 Cap PO Q6HRS Diagnosis: Problems: (1) Anxiety disorder (2) Impulse control disorder (3) Dementia, vascular, with delusions (4) Dementia, vascular, with depression (5) Dementia in Alzheimer's disease with delusions (6) Dementia in Alzheimer's disease with depression CAITLYN BHATT MD August 22, 2016 20:37
[2016-08-22] MEDS: LORazepam 2 MG/ML VIAL IM SCH (21:31)
--- NOTE | 2016-08-22 23:39 | NUR ---
Behavior Intervention Response and Plan: BIRP Note: Behavior: Assumed Care of patient, patient located in Day Room at shift change. Patient exhibited the following behavior Calm, Disorganized, Compliant. Brief assessment on rounds of vital signs, medication needs, lab studies, and pain. Treatment plan problems Dementia w/ BD, alterration in thought process, and fall risk. Intervention: Patient assessed and the following interventions initiated safety checks 15 Minute Checks Cognitive Assessment , Head to toe Assessment , Medications. Response: After interactions and interventions patient responded in the following manner, Calm , Disorganized ,Drowsy. Continue to assess behaviors and condition will continue to monitor throughout the shift as needed. Plan: Continue to monitor Master Treatment Plan for patient's progress toward short term goals of Medication Compliance, Decreased Aggression, usp goals to return to previous living setting vs placement. Continue to assess patient for changes in above assessment. Monitor for medication needs, pain, and safety concerns. Hourly rounding performed to ensure safe environment.
--- NOTE | 2016-08-23 01:30 | PN ---
DATE: 08/21/2016 PSYCHIATRIC PROGRESS NOTE This is a late entry for date of service 08/21/2016 and covers elements not covered in my initial note. SUBJECTIVE: The patient was restless the previous night, received p.r.n. at 3:00 a.m., takes her meds at 5:00 p.m. on 08/21/2016. She was again anxious, restless, speaking in Romanian, which is usually a precursor for her agitation and worsening psychosis. The patient received another p.r.n., which helped. REVIEW OF SYSTEMS: No CV, , pulmonary, eye system symptoms on review. MENTAL STATUS EXAM: Oriented to herself. Insight, judgment, recent and remote memory, attention, concentration, fund of knowledge poor, consistent with her diagnosis mentioned in my initial note. LABORATORY DATA: Reviewed. PLAN: Continue psychotropics mentioned in my initial note. We may need to stop the IM Haldol, Ativan, but so far she is receiving it every other day since p.o. meds have been relatively ineffective. CAITLYN BHATT MD DR: ALICIA/shanon JOB#: [id number] / [id number]
[2016-08-23 06:24] VITALS: BP 155/90
[2016-08-23] MEDS: CITALOPRAM 10 MG TABLET. PO SCH (08:53)
[2016-08-23] MEDS: busPIRone 10 MG TABLET. PO SCH ×4 (08:53→19:36)
[2016-08-23] MEDS: traZODone 50 MG TABLET. PO SCH ×3 (08:53→19:36)
[2016-08-23] MEDS: DOCUSATE CALCIUM 240 MG CAPSULE PO SCH (08:54)
[2016-08-23] MEDS: risperiDONE 0.25 MG TABLET. PO SCH ×4 (08:54→19:35)
[2016-08-23] MEDS: LISINOPRIL 20 MG TABLET PO SCH (08:54)
[2016-08-23] MEDS: NICOTINE 21MG PATCH. TD SCH (08:54)
--- NOTE | 2016-08-23 10:09 | NUR ---
Behavior Intervention Response and Plan: BIRP Note: Behavior: Assumed Care of patient, patient located in Hallway at shift change. Patient exhibited the following behavior Restless, Disorganized, wandering and asking for a cigarette. Brief assessment on rounds of vital signs, medication needs, lab studies, and pain. Treatment plan problems Dementia W/ BD Altered Thought process and Fall Risk. Intervention: Patient assessed and the following interventions initiated safety checks 15 Minute Checks Cognitive Assessment , Head to toe Assessment , Medications. Response: After interactions and interventions patient responded in the following manner, Disorganized , Cooperative,and calm. Continue to assess behaviors and condition will continue to monitor throughout the shift as needed. Plan: Continue to monitor Master Treatment Plan for patient's progress toward short term goals of Decreased Agitation, Decreased Aggression, residential goals to return to previous living setting vs placement. Continue to assess patient for changes in above assessment. Monitor for medication needs, pain, and safety concerns. Hourly rounding performed to ensure safe environment.
[2016-08-23] MEDS: CHOLECALCIFEROL (VITAMIN D3) 1,000 UNIT TABLET PO SCH ×2 (13:30→16:58)
[2016-08-23 16:10] VITALS: BP 156/79
[2016-08-23] MEDS: MELATONIN 3 MG TABLET PO SCH (19:35)
[2016-08-23] MEDS: MIRTAZAPINE 15 MG TABLET PO SCH (19:36)
[2016-08-23] MEDS: traZODone 100 MG TABLET. PO SCH (19:36)
[2016-08-23] MEDS: TEMAZEPAM 15 MG CAPSULE PO PRN (19:38)
--- NOTE | 2016-08-23 20:00 | PDOC ---
Exam Yaya Demential Exam: Yaya Note: Please also refer to the separate dictated note~for this date of service dictated separately.~Patient seen individually. Discussed the patient with Nursing staff reviewed the chart.~Reviewed interim history and current functioning. Reviewed vital signs,~Labs/ Radiology~and current medications noted below. Continue current treatment with the changes noted in the dictated addendum note Assessment: Vital Signs: Vital Signs Date Time Temp Pulse Resp B/P (MAP) Pulse Ox O2 Delivery O2 Flow Rate FiO2 08/23/16 16:10 98.0 56 20 156/79 (104) 98 I&O Intake and Output 08/23/16 07:00 Intake Total 1320 ml Balance 1320 ml Intake Oral 1320 ml # Voids 1 # Bowel Movements 1 Current Medications: Meds: Current Medications Diphenhydramine HCl (Benadryl) 25 mg Q6HRS PO ; Start 07/01/16 at 18:00; Stop at 18:00; Status DC Hydroxyzine HCl (Atarax) 25 mg PRN Q6HRS PRN PO ITCHING Last administered on 01:19; Start 07/01/16 at 15:15; Stop 07/06/16 at 04:21; Status DC Lisinopril (Prinivil) 20 mg DAILY PO Last administered on 08/23/16 08:54; Start 07/02/16 at 09:00 Lorazepam (Ativan) 0.5 mg PRN Q4HRS PRN PO ANXIETY / AGITATION Last administered on 07/02/16 21:07; Start 07/01/16 at 15:15; Stop 07/02/16 at 21:44 ; Status DC Nicotine (Nicoderm Cq 21mg) 1 patch DAILY TD Last administered on 08/23/16 08: 54; Start 07/02/16 at 09:00 Lorazepam (Ativan) 0.5 mg PRN Q4HRS PRN IV ANXIETY / AGITATION; Start 07/01/16 at 15:15; Stop 07/01/16 at 19:14; Status DC Diphenhydramine HCl (Benadryl) 25 mg PRN Q6HRS PRN IVP ITCHING; Start 07/01/16 at 15:15; Stop 07/01/16 at 19:14; Status DC Haloperidol Lactate (Haldol) 5 mg PRN Q6HRS PRN IM AGITATION; Start 07/01/16 at 15:15; Stop 07/01/16 at 19:14; Status DC Diphenhydramine HCl (Benadryl) 25 mg PRN Q6HRS PRN PO ITCHING Last administered on 07/01/16 20:56; Start 07/01/16 at 18:00 Acetaminophen/ Hydrocodone Bitart (Lortab 5/325) 1 tab PRN BID PRN PO PAIN Last administered on 08/06/16 13:12; Start 07/02/16 at 21:45 Olanzapine (Zyprexa Zydis) 2.5 mg PRN Q2HR PRN PO PSYCHOSIS Last administered on 08/23/16 19:38; Start 07/02/16 at 21:45 Mirtazapine (Remeron) 15 mg QHS PO Last administered on 08/23/16 19:36; Start 07/03/16 at 21:00 Citalopram Hydrobromide (Celexa) 10 mg DAILY PO Last administered on 08/23/16 08:53; Start 07/03/16 at 09:00 Risperidone (Risperdal) 0.25 mg BID PO Last administered on 07/10/16 08:54; Start 07/03/16 at 21:00; Stop 07/10/16 at 15:18; Status DC Docusate Calcium (Surfak) 240 mg DAILY PO Last administered on 08/23/16 08:54 ; Start 07/04/16 at 21:00 Magnesium Hydroxide (Milk Of Magnesia) 2,400 mg PRN QHS PRN PO CONSTIPATION; Start 07/04/16 at 18:15 Trazodone HCl (Desyrel) 50 mg QHS PO Last administered on 07/14/16 20:10; Start 07/05/16 at 21:00; Stop 07/15/16 at 13:52; Status DC Trazodone HCl (Desyrel) 50 mg PRN QHS PRN PO INSOMNIA Last administered on 21:27; Start 07/05/16 at 20:45; Stop 07/15/16 at 13:52; Status DC Hydroxyzine HCl (Atarax) 50 mg PRN Q2HR PRN PO Psychosis Last administered on 16:56; Start 07/06/16 at 04:30 Fentanyl (Duragesic 12mcg/ Hr) 1 patch Q3DAYS TD Last administered on 08:03; Start 07/08/16 at 18:30 Risperidone (Risperdal) 0.25 mg TID PO Last administered on 07/24/16 13:20; Start 07/10/16 at 21:00; Stop 07/24/16 at 18:29; Status DC Buspirone HCl (Buspar) 5 mg TID PO Last administered on 07/13/16 12:28; Start 07/10/16 at 21:00; Stop 07/13/16 at 15:32; Status DC Buspirone HCl (Buspar) 10 mg BID PO Last administered on 07/27/16 09:32; Start 07/13/16 at 21:00; Stop 07/27/16 at 18:29; Status DC Divalproex Sodium (Depakote Sprinkles) 125 mg BID PO Last administered on 07:46; Start 07/13/16 at 21:00; Stop 07/19/16 at 11:49; Status DC Vitamin D (Vitamin D3) 2,000 unit BIDPCLD PO Last administered on 08/23/16 16: 58; Start 07/14/16 at 12:30 Trazodone HCl (Desyrel) 100 mg QHS PO Last administered on 08/23/16 19:36; Start 07/15/16 at 21:00 Trazodone HCl (Desyrel) 100 mg PRN QHS PO ; Start 07/15/16 at 13:45; Stop at 23:01; Status DC Trazodone HCl (Desyrel) 100 mg PRN QHS PRN PO INSOMNIA Last administered on 00:53; Start 07/15/16 at 23:00 Quetiapine Fumarate (SEROquel) 50 mg 1X ONCE PO Last administered on 07/16/16 00:44; Start 07/16/16 at 00:30; Stop 07/16/16 at 00:31; Status DC Temazepam (Restoril) 30 mg PRN QHS PRN PO INSOMNIA Last administered on 19:04; Start 07/16/16 at 18:30; Stop 08/09/16 at 18:24; Status DC Divalproex Sodium (Depakote Sprinkles) 250 mg BID PO Last administered on 12:20; Start 07/19/16 at 21:00; Stop 07/22/16 at 18:23; Status DC Acetaminophen (Tylenol) 650 mg PRN Q6HRS PRN PO PAIN / TEMP Last administered on 08/09/16 16:38; Start 07/22/16 at 15:30 Divalproex Sodium (Depakote Sprinkles) 375 mg BID PO Last administered on 08:58; Start 07/22/16 at 21:00; Stop 08/04/16 at 17:56; Status DC Melatonin 6 mg QHS PO Last administered on 08/23/16 19:35; Start 07/22/16 at 21:00 Risperidone (Risperdal) 0.25 mg QID PO Last administered on 08/23/16 19:35; Start 07/24/16 at 21:00 Lorazepam (Ativan) 1 mg DAILY IM ; Start 07/27/16 at 09:00; Stop 07/27/16 at 09: 00; Status DC Lorazepam (Ativan) 1 mg 14 IM Last administered on 07/28/16 13:47; Start 07/26 at 15:00; Stop 07/29/16 at 14:13; Status DC Haloperidol Lactate (Haldol) 5 mg 1X ONCE IM Last administered on 07/27/16 16 :15; Start 07/27/16 at 16:15; Stop 07/27/16 at 16:16; Status DC Haloperidol Lactate (Haldol) 5 mg 14 IM Last administered on 07/28/16 13:46; Start 07/28/16 at 14:00; Stop 07/29/16 at 14:13; Status DC Buspirone HCl (Buspar) 10 mg TID PO Last administered on 08/04/16 08:58; Start 07/27/16 at 21:00; Stop 08/04/16 at 17:56; Status DC Trazodone HCl (Desyrel) 12.5 mg TIDWMEALS PO Last administered on 08/03/16 11: 58; Start 07/28/16 at 08:00; Stop 08/03/16 at 13:40; Status DC Fosfomycin Tromethamine (Monurol) 3 gm 1X ONCE PO Last administered on 06:27; Start 07/29/16 at 06:30; Stop 07/29/16 at 06:32; Status DC Trazodone HCl (Desyrel) 25 mg TIDWMEALS PO Last administered on 08/06/16 07:54 ; Start 08/03/16 at 17:00; Stop 08/06/16 at 11:24; Status DC Buspirone HCl (Buspar) 10 mg QID PO Last administered on 08/23/16 19:36; Start 08/04/16 at 21:00 Haloperidol Lactate (Haldol) 5 mg AFTRNOON IM Last administered on 08/17/16 13: 36; Start 08/05/16 at 13:15; Stop 08/19/16 at 18:30; Status DC Lorazepam (Ativan) 0.5 mg AFTRNOON IM Last administered on 08/17/16 13:36; Start 08/05/16 at 13:15; Stop 08/19/16 at 18:30; Status DC Oxcarbazepine (Trileptal) 300 mg BID PO Last administered on 08/11/16 09:48; Start 08/06/16 at 21:00; Stop 08/11/16 at 18:43; Status DC Trazodone HCl (Desyrel) 50 mg BID PO Last administered on 08/23/16 19:36; Start 08/06/16 at 21:00 Trazodone HCl (Desyrel) 50 mg 14 PO Last administered on 08/23/16 13:32; Start 08/06/16 at 14:00 Temazepam (Restoril) 15 mg PRN QHS PRN PO INSOMNIA Last administered on 19:38; Start 08/09/16 at 18:30 Oxcarbazepine (Trileptal) 300 mg TID PO Last administered on 08/23/16 19:36; Start 08/11/16 at 21:00 Haloperidol Decanoate (Haldol Decanoate Im Extended Release) 100 mg QMONTH IM Last administered on 08/13/16 21:04; Start 08/13/16 at 21:00 Haloperidol Lactate (Haldol) 5 mg QODAY IM Last administered on 08/20/16 15:52 ; Start 08/20/16 at 13:00 Lorazepam (Ativan) 0.5 mg QODAY IM Last administered on 08/20/16 15:52; Start 08/20/16 at 13:00 Active Scripts Active Lisinopril 20 Mg Tablet 1 Tab PO DAILY NICODERM CQ 21mg (Nicotine) 1 Each Patch.td24 1 Patch TP DAILY Lorazepam 0.5 Mg Tablet 1 Tab PO Q4HRS PRN Hydroxyzine Hcl 25 Mg Tablet 1 Tab PO Q6HRS PRN Benadryl (Diphenhydramine Hcl) 25 Mg Capsule 1 Cap PO Q6HRS CAITLYN BHATT MD August 23, 2016 20:00
--- NOTE | 2016-08-23 23:24 | NUR ---
Behavior Intervention Response and Plan: BIRP Note: Behavior: Assumed Care of patient, patient located in Day Room at shift change. Patient exhibited the following behavior Irritable, Agitated, Compliant, banging on doors, exit seeking and angry. Brief assessment on rounds of vital signs, medication needs, lab studies, and pain. Treatment plan problems 1-2. Intervention: Patient assessed and the following interventions initiated safety checks 15 Minute Checks Cognitive Assessment , Head to toe Assessment , Medications. Response: After interactions and interventions patient responded in the following manner, Interactive , Calm ,Irritable. Continue to assess behaviors and condition will continue to monitor throughout the shift as needed. Plan: Continue to monitor Master Treatment Plan for patient's progress toward short term goals of Decreased Agitation, Improved Mood, longterm goals to return to previous living setting vs placement. Continue to assess patient for changes in above assessment. Monitor for medication needs, pain, and safety concerns. Hourly rounding performed to ensure safe environment.
--- NOTE | 2016-08-24 00:27 | NUR ---
Nursing Note Pt given Britni and Ralph 1939 for agitation and irritability. Pt was hitting doors and windows demanding to go home, loud and obnoxious.
[2016-08-24 06:27] VITALS: BP 135/81
[2016-08-24] MEDS: busPIRone 10 MG TABLET. PO SCH ×4 (08:36→19:08)
[2016-08-24] MEDS: traZODone 50 MG TABLET. PO SCH ×3 (08:36→19:09)
[2016-08-24] MEDS: CITALOPRAM 10 MG TABLET. PO SCH (08:36)
[2016-08-24] MEDS: DOCUSATE CALCIUM 240 MG CAPSULE PO SCH (08:36)
[2016-08-24] MEDS: NICOTINE 21MG PATCH. TD SCH (08:37)
[2016-08-24] MEDS: risperiDONE 0.25 MG TABLET. PO SCH ×4 (08:37→19:08)
[2016-08-24] MEDS: LISINOPRIL 20 MG TABLET PO SCH (08:37)
--- NOTE | 2016-08-24 10:37 | NUR ---
Behavior Intervention Response and Plan: BIRP Note: Behavior: Assumed Care of patient, patient located in Hallway at shift change. Patient exhibited the following behavior confused, wandering, and compliant. Brief assessment on rounds of vital signs, medication needs, lab studies, and pain. Treatment plan problems Dementia W/ BD Altered Thought process and Fall Risk. Intervention: Patient assessed and the following interventions initiated safety checks 15 Minute Checks Cognitive Assessment , Head to toe Assessment , Medications. Response: After interactions and interventions patient responded in the following manner, confused, calm, and compliant. Continue to assess behaviors and condition will continue to monitor throughout the shift as needed. 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 Continue to assess patient for changes in above assessment. Monitor for medication needs, pain, and safety concerns. Hourly rounding performed to ensure safe environment.
--- NOTE | 2016-08-24 11:10 | NUR ---
THERAPEUTIC RECREATION GROUP NOTE TITLE :Q & A with yarn and noodles ACTIVITY : Reminiscing Activity GOAL : Increase socialization, gain perspective, elevate mood, stimulate memory, increase fine motor functioning DURATION : 40 Minutes RESPONSE : Minimal participation. Pt. joined the group with only a few minutes left. She answered a few questions with a smile on her face.
[2016-08-24] MEDS: ACETAMINOPHEN 325 MG TABLET PO PRN (13:04)
[2016-08-24] MEDS: CHOLECALCIFEROL (VITAMIN D3) 1,000 UNIT TABLET PO SCH ×2 (13:13→17:07)
--- NOTE | 2016-08-24 15:30 | NUR ---
THERAPEUTIC RECREATION GROUP NOTE TITLE :[employer] ACTIVITY : Music GOAL : Increase socialization, elevate mood, stimulate memory DURATION : 90 Minutes RESPONSE : No participation
--- NOTE | 2016-08-24 15:35 | NUR ---
Pt is very delusional at this time stating her baby is on the other side of the door and is sick and she can't get to her bc the babys mom is sick too and they need her help. Pt is very tearful and empathetic at this time. Pt unable to be consoled or redirected by staff. PRN rhianna cintron given.
[2016-08-24 16:03] VITALS: BP 156/81
[2016-08-24] MEDS: MELATONIN 3 MG TABLET PO SCH (19:08)
[2016-08-24] MEDS: traZODone 100 MG TABLET. PO SCH (19:09)
[2016-08-24] MEDS: MIRTAZAPINE 15 MG TABLET PO SCH (19:09)
[2016-08-24] MEDS: TEMAZEPAM 15 MG CAPSULE PO PRN (19:39)
--- NOTE | 2016-08-24 19:45 | NUR ---
Behavior Intervention Response and Plan: BIRP Note: Behavior: Assumed Care of patient, patient located in Day Room at shift change. Patient exhibited the following behavior Calm, Wandering, Appropriate. Brief assessment on rounds of vital signs, medication needs, lab studies, and pain. Treatment plan problems: Dementia with BD and Fall Risk. Intervention: Patient assessed and the following interventions initiated safety checks 15 Minute Checks Cognitive Assessment , Head to toe Assessment , Medications, Oral Hydration, Nutrition. Response: After interactions and interventions patient responded in the following manner, Calm , Interactive ,Compliant. Continue to assess behaviors and condition will continue to monitor throughout the shift as needed. 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 Continue to assess patient for changes in above assessment. Monitor for medication needs, pain, and safety concerns. Hourly rounding performed to ensure safe environment.
--- NOTE | 2016-08-24 20:56 | PDOC ---
Exam Yaya Demential Exam: Yaya Note: Please also refer to the separate dictated note~for this date of service dictated separately.~Patient seen individually. Discussed the patient with Nursing staff reviewed the chart.~Reviewed interim history and current functioning. Reviewed vital signs,~Labs/ Radiology~and current medications noted below. Continue current treatment with the changes noted in the dictated addendum note Assessment: Vital Signs: Vital Signs Date Time Temp Pulse Resp B/P (MAP) Pulse Ox O2 Delivery O2 Flow Rate FiO2 08/24/16 16:03 97.7 72 16 156/81 (106) 97 Room Air I&O Intake and Output 08/24/16 07:00 Intake Total 840 ml Balance 840 ml Intake Oral 840 ml Current Medications: Meds: Current Medications Diphenhydramine HCl (Benadryl) 25 mg Q6HRS PO ; Start 07/01/16 at 18:00; Stop at 18:00; Status DC Hydroxyzine HCl (Atarax) 25 mg PRN Q6HRS PRN PO ITCHING Last administered on 01:19; Start 07/01/16 at 15:15; Stop 07/06/16 at 04:21; Status DC Lisinopril (Prinivil) 20 mg DAILY PO Last administered on 08/24/16 08:37; Start 07/02/16 at 09:00 Lorazepam (Ativan) 0.5 mg PRN Q4HRS PRN PO ANXIETY / AGITATION Last administered on 07/02/16 21:07; Start 07/01/16 at 15:15; Stop 07/02/16 at 21:44 ; Status DC Nicotine (Nicoderm Cq 21mg) 1 patch DAILY TD Last administered on 08/24/16 08: 37; Start 07/02/16 at 09:00 Lorazepam (Ativan) 0.5 mg PRN Q4HRS PRN IV ANXIETY / AGITATION; Start 07/01/16 at 15:15; Stop 07/01/16 at 19:14; Status DC Diphenhydramine HCl (Benadryl) 25 mg PRN Q6HRS PRN IVP ITCHING; Start 07/01/16 at 15:15; Stop 07/01/16 at 19:14; Status DC Haloperidol Lactate (Haldol) 5 mg PRN Q6HRS PRN IM AGITATION; Start 07/01/16 at 15:15; Stop 07/01/16 at 19:14; Status DC Diphenhydramine HCl (Benadryl) 25 mg PRN Q6HRS PRN PO ITCHING Last administered on 07/01/16 20:56; Start 07/01/16 at 18:00 Acetaminophen/ Hydrocodone Bitart (Lortab 5/325) 1 tab PRN BID PRN PO PAIN Last administered on 08/06/16 13:12; Start 07/02/16 at 21:45 Olanzapine (Zyprexa Zydis) 2.5 mg PRN Q2HR PRN PO PSYCHOSIS Last administered on 08/24/16 15:17; Start 07/02/16 at 21:45 Mirtazapine (Remeron) 15 mg QHS PO Last administered on 08/24/16 19:09; Start 07/03/16 at 21:00 Citalopram Hydrobromide (Celexa) 10 mg DAILY PO Last administered on 08/24/16 08:36; Start 07/03/16 at 09:00 Risperidone (Risperdal) 0.25 mg BID PO Last administered on 07/10/16 08:54; Start 07/03/16 at 21:00; Stop 07/10/16 at 15:18; Status DC Docusate Calcium (Surfak) 240 mg DAILY PO Last administered on 08/24/16 08:36 ; Start 07/04/16 at 21:00 Magnesium Hydroxide (Milk Of Magnesia) 2,400 mg PRN QHS PRN PO CONSTIPATION; Start 07/04/16 at 18:15 Trazodone HCl (Desyrel) 50 mg QHS PO Last administered on 07/14/16 20:10; Start 07/05/16 at 21:00; Stop 07/15/16 at 13:52; Status DC Trazodone HCl (Desyrel) 50 mg PRN QHS PRN PO INSOMNIA Last administered on 21:27; Start 07/05/16 at 20:45; Stop 07/15/16 at 13:52; Status DC Hydroxyzine HCl (Atarax) 50 mg PRN Q2HR PRN PO Psychosis Last administered on 16:56; Start 07/06/16 at 04:30 Fentanyl (Duragesic 12mcg/ Hr) 1 patch Q3DAYS TD Last administered on 08:03; Start 07/08/16 at 18:30 Risperidone (Risperdal) 0.25 mg TID PO Last administered on 07/24/16 13:20; Start 07/10/16 at 21:00; Stop 07/24/16 at 18:29; Status DC Buspirone HCl (Buspar) 5 mg TID PO Last administered on 07/13/16 12:28; Start 07/10/16 at 21:00; Stop 07/13/16 at 15:32; Status DC Buspirone HCl (Buspar) 10 mg BID PO Last administered on 07/27/16 09:32; Start 07/13/16 at 21:00; Stop 07/27/16 at 18:29; Status DC Divalproex Sodium (Depakote Sprinkles) 125 mg BID PO Last administered on 07:46; Start 07/13/16 at 21:00; Stop 07/19/16 at 11:49; Status DC Vitamin D (Vitamin D3) 2,000 unit BIDPCLD PO Last administered on 08/24/16 17: 07; Start 07/14/16 at 12:30 Trazodone HCl (Desyrel) 100 mg QHS PO Last administered on 08/24/16 19:09; Start 07/15/16 at 21:00 Trazodone HCl (Desyrel) 100 mg PRN QHS PO ; Start 07/15/16 at 13:45; Stop at 23:01; Status DC Trazodone HCl (Desyrel) 100 mg PRN QHS PRN PO INSOMNIA Last administered on 00:53; Start 07/15/16 at 23:00 Quetiapine Fumarate (SEROquel) 50 mg 1X ONCE PO Last administered on 07/16/16 00:44; Start 07/16/16 at 00:30; Stop 07/16/16 at 00:31; Status DC Temazepam (Restoril) 30 mg PRN QHS PRN PO INSOMNIA Last administered on 19:04; Start 07/16/16 at 18:30; Stop 08/09/16 at 18:24; Status DC Divalproex Sodium (Depakote Sprinkles) 250 mg BID PO Last administered on 12:20; Start 07/19/16 at 21:00; Stop 07/22/16 at 18:23; Status DC Acetaminophen (Tylenol) 650 mg PRN Q6HRS PRN PO PAIN / TEMP Last administered on 08/24/16 13:04; Start 07/22/16 at 15:30 Divalproex Sodium (Depakote Sprinkles) 375 mg BID PO Last administered on 08:58; Start 07/22/16 at 21:00; Stop 08/04/16 at 17:56; Status DC Melatonin 6 mg QHS PO Last administered on 08/24/16 19:08; Start 07/22/16 at 21:00 Risperidone (Risperdal) 0.25 mg QID PO Last administered on 08/24/16 19:08; Start 07/24/16 at 21:00 Lorazepam (Ativan) 1 mg DAILY IM ; Start 07/27/16 at 09:00; Stop 07/27/16 at 09: 00; Status DC Lorazepam (Ativan) 1 mg 14 IM Last administered on 07/28/16 13:47; Start 07/26 at 15:00; Stop 07/29/16 at 14:13; Status DC Haloperidol Lactate (Haldol) 5 mg 1X ONCE IM Last administered on 07/27/16 16 :15; Start 07/27/16 at 16:15; Stop 07/27/16 at 16:16; Status DC Haloperidol Lactate (Haldol) 5 mg 14 IM Last administered on 07/28/16 13:46; Start 07/28/16 at 14:00; Stop 07/29/16 at 14:13; Status DC Buspirone HCl (Buspar) 10 mg TID PO Last administered on 08/04/16 08:58; Start 07/27/16 at 21:00; Stop 08/04/16 at 17:56; Status DC Trazodone HCl (Desyrel) 12.5 mg TIDWMEALS PO Last administered on 08/03/16 11: 58; Start 07/28/16 at 08:00; Stop 08/03/16 at 13:40; Status DC Fosfomycin Tromethamine (Monurol) 3 gm 1X ONCE PO Last administered on 06:27; Start 07/29/16 at 06:30; Stop 07/29/16 at 06:32; Status DC Trazodone HCl (Desyrel) 25 mg TIDWMEALS PO Last administered on 08/06/16 07:54 ; Start 08/03/16 at 17:00; Stop 08/06/16 at 11:24; Status DC Buspirone HCl (Buspar) 10 mg QID PO Last administered on 08/24/16 19:08; Start 08/04/16 at 21:00 Haloperidol Lactate (Haldol) 5 mg AFTRNOON IM Last administered on 08/17/16 13: 36; Start 08/05/16 at 13:15; Stop 08/19/16 at 18:30; Status DC Lorazepam (Ativan) 0.5 mg AFTRNOON IM Last administered on 08/17/16 13:36; Start 08/05/16 at 13:15; Stop 08/19/16 at 18:30; Status DC Oxcarbazepine (Trileptal) 300 mg BID PO Last administered on 08/11/16 09:48; Start 08/06/16 at 21:00; Stop 08/11/16 at 18:43; Status DC Trazodone HCl (Desyrel) 50 mg BID PO Last administered on 08/24/16 19:09; Start 08/06/16 at 21:00 Trazodone HCl (Desyrel) 50 mg 14 PO Last administered on 08/24/16 13:04; Start 08/06/16 at 14:00 Temazepam (Restoril) 15 mg PRN QHS PRN PO INSOMNIA Last administered on 19:39; Start 08/09/16 at 18:30 Oxcarbazepine (Trileptal) 300 mg TID PO Last administered on 08/24/16 19:08; Start 08/11/16 at 21:00 Haloperidol Decanoate (Haldol Decanoate Im Extended Release) 100 mg QMONTH IM Last administered on 08/13/16 21:04; Start 08/13/16 at 21:00 Haloperidol Lactate (Haldol) 5 mg QODAY IM Last administered on 08/20/16 15:52 ; Start 08/20/16 at 13:00 Lorazepam (Ativan) 0.5 mg QODAY IM Last administered on 08/20/16 15:52; Start 08/20/16 at 13:00 Active Scripts Active Lisinopril 20 Mg Tablet 1 Tab PO DAILY NICODERM CQ 21mg (Nicotine) 1 Each Patch.td24 1 Patch TP DAILY Lorazepam 0.5 Mg Tablet 1 Tab PO Q4HRS PRN Hydroxyzine Hcl 25 Mg Tablet 1 Tab PO Q6HRS PRN Benadryl (Diphenhydramine Hcl) 25 Mg Capsule 1 Cap PO Q6HRS CAITLYN BHATT MD August 24, 2016 20:56
--- NOTE | 2016-08-24 23:16 | PN ---
DATE: 08/22/2016 PSYCHIATRIC PROGRESS NOTE SUBJECTIVE: This is a late entry 08/22/2016 covers the elements not covered in my initial note. Overall, Per nursing report, the patient is doing better, less restless, more compliant with the medications, wandering. Medications given hidden in ice cream. REVIEW OF SYSTEMS: No CV, , pulmonary, eye, ENT system symptoms on review. Reliability poor. MENTAL STATUS EXAM: Oriented to herself. Insight, judgment, recent and remote memory, attention, concentration, fund of knowledge poor, consistent with her diagnosis as mentioned in my initial note. PLAN: Continue psychotropics as mentioned in my initial note. MAN Quinten BHATT MD DR: ALICIA/shanon JOB#: [id number] / [id number]
--- NOTE | 2016-08-24 23:19 | PN ---
DATE: 08/23/2016 PSYCHIATRIC PROGRESS NOTE This is a late entry 08/23/2016 covers elements not covered in my initial note. SUBJECTIVE: Overall, staff had telephone conversation with Dc patient's son and patient is overall doing better. She talked to Dc on the phone as well. Less aggressive, talking more in [place]. REVIEW OF SYSTEMS: No CV, , pulmonary, eye, ENT system symptoms on review. MENTAL STATUS EXAM: Insight, judgment, recent and remote memory, attention, concentration, fund of knowledge poor, consistent with her diagnosis as mentioned in my initial note. PLAN: Continue current psychotropics. MAN Quinten BHATT MD DR: ALICIA/shanon JOB#: [id number] / [id number]
--- NOTE | 2016-08-25 02:50 | NUR ---
Nursing Note: Patient awake, wandering hallways and woke another patient up and pushing him in a wheelchair. Upon several attempts to redirect patient, patient became combative with staff and spit in another nurse's face. Patient also yelling out and looking for "Edgar". Medical record, eMAR, and [facility] documentation verified that patient has not received IM Ativan/Haldol since 08/20/16. Patient given IM Ativan/Haldol as ordered. Will monitor patient response. Addendum: 08/25/16 at 0603 by KATIA STAPLETON RN RN Patient also laid down on Day Room floor, crying, and cursing at staff. This was witnessed as a behavior.
[2016-08-25] MEDS: HALOPERIDOL LACT 5 MG/ML VIAL. IM SCH (02:57)
[2016-08-25] MEDS: LORazepam 2 MG/ML VIAL IM SCH (02:58)
--- NOTE | 2016-08-25 04:30 | NUR ---
Nursing Note: Patient calm, interactive and engaged in activity: folding clothes and coloring pictures. Will continue to monitor.
[2016-08-25 05:44] VITALS: BP 163/84
[2016-08-25] MEDS: NICOTINE 21MG PATCH. TD SCH (08:08)
[2016-08-25] MEDS: DOCUSATE CALCIUM 240 MG CAPSULE PO SCH (08:09)
[2016-08-25] MEDS: CITALOPRAM 10 MG TABLET. PO SCH (08:09)
[2016-08-25] MEDS: traZODone 50 MG TABLET. PO SCH ×3 (08:09→19:21)
[2016-08-25] MEDS: risperiDONE 0.25 MG TABLET. PO SCH ×4 (08:09→19:21)
[2016-08-25] MEDS: busPIRone 10 MG TABLET. PO SCH ×4 (08:10→19:20)
[2016-08-25] MEDS: LISINOPRIL 20 MG TABLET PO SCH (08:10)
[2016-08-25] MEDS: fentaNYL 12MCG/HR 1 PATCH PATCH TD SCH (08:13)
--- NOTE | 2016-08-25 09:45 | NUR ---
Behavior Intervention Response and Plan: BIRP Note: Behavior: Assumed Care of patient, patient located in Patient Room at shift change. Patient exhibited the following behavior Wandering, Disorganized, Irritable. Brief assessment on rounds of vital signs, medication needs, lab studies, and pain. Treatment plan problems . Intervention: Patient assessed and the following interventions initiated safety checks 15 Minute Checks Head to toe Assessment , Medications , Nutrition. Response: After interactions and interventions patient responded in the following manner, Disorganized , Drowsy ,Interactive. Continue to assess behaviors and condition will continue to monitor throughout the shift as needed. 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 Continue to assess patient for changes in above assessment. Monitor for medication needs, pain, and safety concerns. Hourly rounding performed to ensure safe environment.
--- NOTE | 2016-08-25 12:44 | NUR ---
[facility] came and assessed pt., called back and asked questions. Told lead technical writer they would call and let SW know an answer.
--- NOTE | 2016-08-25 12:51 | NUR ---
TIA sent information to [facility] and [facility]. SW has not heard anything back from either place.
[2016-08-25] MEDS: CHOLECALCIFEROL (VITAMIN D3) 1,000 UNIT TABLET PO SCH ×2 (13:56→16:10)
--- NOTE | 2016-08-25 14:00 | NUR ---
THERAPEUTIC RECREATION GROUP NOTE TITLE :Dance and Sing along with Nelly ACTIVITY : Music GOAL : Increase socialization, elevate mood, stimulate memory DURATION : 60 Minutes RESPONSE : No participation.
[2016-08-25 15:50] VITALS: BP 142/75
[2016-08-25] MEDS: MIRTAZAPINE 15 MG TABLET PO SCH (19:21)
[2016-08-25] MEDS: traZODone 100 MG TABLET. PO SCH (19:21)
[2016-08-25] MEDS: MELATONIN 3 MG TABLET PO SCH (19:22)
--- NOTE | 2016-08-25 20:58 | PDOC ---
Exam Yaya Demential Exam: Yaya Note: Please also refer to the separate dictated note~for this date of service dictated separately.~Patient seen individually. Discussed the patient with Nursing staff reviewed the chart.~Reviewed interim history and current functioning. Reviewed vital signs,~Labs/ Radiology~and current medications noted below. Continue current treatment with the changes noted in the dictated addendum note Assessment: Vital Signs: Vital Signs Date Time Temp Pulse Resp B/P (MAP) Pulse Ox O2 Delivery O2 Flow Rate FiO2 08/25/16 15:50 97.7 76 20 142/75 (97) 97 08/24/16 16:03 Room Air I&O Intake and Output 08/25/16 07:00 Intake Total 820 ml Balance 820 ml Intake Oral 820 ml Current Medications: Meds: Current Medications Diphenhydramine HCl (Benadryl) 25 mg Q6HRS PO ; Start 07/01/16 at 18:00; Stop at 18:00; Status DC Hydroxyzine HCl (Atarax) 25 mg PRN Q6HRS PRN PO ITCHING Last administered on 01:19; Start 07/01/16 at 15:15; Stop 07/06/16 at 04:21; Status DC Lisinopril (Prinivil) 20 mg DAILY PO Last administered on 08/25/16 08:10; Start 07/02/16 at 09:00 Lorazepam (Ativan) 0.5 mg PRN Q4HRS PRN PO ANXIETY / AGITATION Last administered on 07/02/16 21:07; Start 07/01/16 at 15:15; Stop 07/02/16 at 21:44 ; Status DC Nicotine (Nicoderm Cq 21mg) 1 patch DAILY TD Last administered on 08/25/16 08: 08; Start 07/02/16 at 09:00 Lorazepam (Ativan) 0.5 mg PRN Q4HRS PRN IV ANXIETY / AGITATION; Start 07/01/16 at 15:15; Stop 07/01/16 at 19:14; Status DC Diphenhydramine HCl (Benadryl) 25 mg PRN Q6HRS PRN IVP ITCHING; Start 07/01/16 at 15:15; Stop 07/01/16 at 19:14; Status DC Haloperidol Lactate (Haldol) 5 mg PRN Q6HRS PRN IM AGITATION; Start 07/01/16 at 15:15; Stop 07/01/16 at 19:14; Status DC Diphenhydramine HCl (Benadryl) 25 mg PRN Q6HRS PRN PO ITCHING Last administered on 07/01/16 20:56; Start 07/01/16 at 18:00 Acetaminophen/ Hydrocodone Bitart (Lortab 5/325) 1 tab PRN BID PRN PO PAIN Last administered on 08/06/16 13:12; Start 07/02/16 at 21:45 Olanzapine (Zyprexa Zydis) 2.5 mg PRN Q2HR PRN PO PSYCHOSIS Last administered on 08/24/16 15:17; Start 07/02/16 at 21:45 Mirtazapine (Remeron) 15 mg QHS PO Last administered on 08/25/16 19:21; Start 07/03/16 at 21:00 Citalopram Hydrobromide (Celexa) 10 mg DAILY PO Last administered on 08/25/16 08:09; Start 07/03/16 at 09:00 Risperidone (Risperdal) 0.25 mg BID PO Last administered on 07/10/16 08:54; Start 07/03/16 at 21:00; Stop 07/10/16 at 15:18; Status DC Docusate Calcium (Surfak) 240 mg DAILY PO Last administered on 08/25/16 08:09 ; Start 07/04/16 at 21:00 Magnesium Hydroxide (Milk Of Magnesia) 2,400 mg PRN QHS PRN PO CONSTIPATION; Start 07/04/16 at 18:15 Trazodone HCl (Desyrel) 50 mg QHS PO Last administered on 07/14/16 20:10; Start 07/05/16 at 21:00; Stop 07/15/16 at 13:52; Status DC Trazodone HCl (Desyrel) 50 mg PRN QHS PRN PO INSOMNIA Last administered on 21:27; Start 07/05/16 at 20:45; Stop 07/15/16 at 13:52; Status DC Hydroxyzine HCl (Atarax) 50 mg PRN Q2HR PRN PO Psychosis Last administered on 16:56; Start 07/06/16 at 04:30 Fentanyl (Duragesic 12mcg/ Hr) 1 patch Q3DAYS TD Last administered on 08:13; Start 07/08/16 at 18:30 Risperidone (Risperdal) 0.25 mg TID PO Last administered on 07/24/16 13:20; Start 07/10/16 at 21:00; Stop 07/24/16 at 18:29; Status DC Buspirone HCl (Buspar) 5 mg TID PO Last administered on 07/13/16 12:28; Start 07/10/16 at 21:00; Stop 07/13/16 at 15:32; Status DC Buspirone HCl (Buspar) 10 mg BID PO Last administered on 07/27/16 09:32; Start 07/13/16 at 21:00; Stop 07/27/16 at 18:29; Status DC Divalproex Sodium (Depakote Sprinkles) 125 mg BID PO Last administered on 07:46; Start 07/13/16 at 21:00; Stop 07/19/16 at 11:49; Status DC Vitamin D (Vitamin D3) 2,000 unit BIDPCLD PO Last administered on 08/25/16 16: 10; Start 07/14/16 at 12:30 Trazodone HCl (Desyrel) 100 mg QHS PO Last administered on 08/25/16 19:21; Start 07/15/16 at 21:00 Trazodone HCl (Desyrel) 100 mg PRN QHS PO ; Start 07/15/16 at 13:45; Stop at 23:01; Status DC Trazodone HCl (Desyrel) 100 mg PRN QHS PRN PO INSOMNIA Last administered on 00:53; Start 07/15/16 at 23:00 Quetiapine Fumarate (SEROquel) 50 mg 1X ONCE PO Last administered on 07/16/16 00:44; Start 07/16/16 at 00:30; Stop 07/16/16 at 00:31; Status DC Temazepam (Restoril) 30 mg PRN QHS PRN PO INSOMNIA Last administered on 19:04; Start 07/16/16 at 18:30; Stop 08/09/16 at 18:24; Status DC Divalproex Sodium (Depakote Sprinkles) 250 mg BID PO Last administered on 12:20; Start 07/19/16 at 21:00; Stop 07/22/16 at 18:23; Status DC Acetaminophen (Tylenol) 650 mg PRN Q6HRS PRN PO PAIN / TEMP Last administered on 08/24/16 13:04; Start 07/22/16 at 15:30 Divalproex Sodium (Depakote Sprinkles) 375 mg BID PO Last administered on 08:58; Start 07/22/16 at 21:00; Stop 08/04/16 at 17:56; Status DC Melatonin 6 mg QHS PO Last administered on 08/25/16 19:22; Start 07/22/16 at 21:00 Risperidone (Risperdal) 0.25 mg QID PO Last administered on 08/25/16 19:21; Start 07/24/16 at 21:00 Lorazepam (Ativan) 1 mg DAILY IM ; Start 07/27/16 at 09:00; Stop 07/27/16 at 09: 00; Status DC Lorazepam (Ativan) 1 mg 14 IM Last administered on 07/28/16 13:47; Start 07/26 at 15:00; Stop 07/29/16 at 14:13; Status DC Haloperidol Lactate (Haldol) 5 mg 1X ONCE IM Last administered on 07/27/16 16 :15; Start 07/27/16 at 16:15; Stop 07/27/16 at 16:16; Status DC Haloperidol Lactate (Haldol) 5 mg 14 IM Last administered on 07/28/16 13:46; Start 07/28/16 at 14:00; Stop 07/29/16 at 14:13; Status DC Buspirone HCl (Buspar) 10 mg TID PO Last administered on 08/04/16 08:58; Start 07/27/16 at 21:00; Stop 08/04/16 at 17:56; Status DC Trazodone HCl (Desyrel) 12.5 mg TIDWMEALS PO Last administered on 08/03/16 11: 58; Start 07/28/16 at 08:00; Stop 08/03/16 at 13:40; Status DC Fosfomycin Tromethamine (Monurol) 3 gm 1X ONCE PO Last administered on 06:27; Start 07/29/16 at 06:30; Stop 07/29/16 at 06:32; Status DC Trazodone HCl (Desyrel) 25 mg TIDWMEALS PO Last administered on 08/06/16 07:54 ; Start 08/03/16 at 17:00; Stop 08/06/16 at 11:24; Status DC Buspirone HCl (Buspar) 10 mg QID PO Last administered on 08/25/16 19:20; Start 08/04/16 at 21:00 Haloperidol Lactate (Haldol) 5 mg AFTRNOON IM Last administered on 08/17/16 13: 36; Start 08/05/16 at 13:15; Stop 08/19/16 at 18:30; Status DC Lorazepam (Ativan) 0.5 mg AFTRNOON IM Last administered on 08/17/16 13:36; Start 08/05/16 at 13:15; Stop 08/19/16 at 18:30; Status DC Oxcarbazepine (Trileptal) 300 mg BID PO Last administered on 08/11/16 09:48; Start 08/06/16 at 21:00; Stop 08/11/16 at 18:43; Status DC Trazodone HCl (Desyrel) 50 mg BID PO Last administered on 08/25/16 19:21; Start 08/06/16 at 21:00 Trazodone HCl (Desyrel) 50 mg 14 PO Last administered on 08/25/16 13:56; Start 08/06/16 at 14:00 Temazepam (Restoril) 15 mg PRN QHS PRN PO INSOMNIA Last administered on 19:39; Start 08/09/16 at 18:30 Oxcarbazepine (Trileptal) 300 mg TID PO Last administered on 08/25/16 19:21; Start 08/11/16 at 21:00 Haloperidol Decanoate (Haldol Decanoate Im Extended Release) 100 mg QMONTH IM Last administered on 08/13/16 21:04; Start 08/13/16 at 21:00 Haloperidol Lactate (Haldol) 5 mg QODAY IM Last administered on 08/25/16 02:57 ; Start 08/20/16 at 13:00 Lorazepam (Ativan) 0.5 mg QODAY IM Last administered on 08/25/16 02:58; Start 08/20/16 at 13:00 Active Scripts Active Lisinopril 20 Mg Tablet 1 Tab PO DAILY NICODERM CQ 21mg (Nicotine) 1 Each Patch.td24 1 Patch TP DAILY Lorazepam 0.5 Mg Tablet 1 Tab PO Q4HRS PRN Hydroxyzine Hcl 25 Mg Tablet 1 Tab PO Q6HRS PRN Benadryl (Diphenhydramine Hcl) 25 Mg Capsule 1 Cap PO Q6HRS CAITLYN BHATT MD August 25, 2016 20:58
--- NOTE | 2016-08-26 00:15 | PN ---
DATE: 08/24/2016 PSYCHIATRIC PROGRESS NOTE This is late entry of 08/24/2016, covers elements not covered in my initial note. SUBJECTIVE: Overall, the patient has done a little better. She is tearful at times, delusional, received Zyprexa at about 3 p.m., talking about girl on the other side having babies but redirects, certainly less agitated. No yelling noted, talking in Wolof, which is a positive sign for her. REVIEW OF SYSTEMS: No CV, , pulmonary, eye, ENT system symptoms on review. Reliability poor. MENTAL STATUS EXAMINATION: Oriented to herself. Insight, judgment, recent and remote memory, attention, concentration, fund of knowledge poor, consistent with her diagnosis mentioned in my initial note. PLAN: Continue current psychotropics, adjust further as clinically indicated. MAN Quinten BHATT MD DR: ALICIA/shanon JOB#: [id number] / [id number]
--- NOTE | 2016-08-26 02:31 | NUR ---
Behavior Intervention Response and Plan: BIRP Note: Behavior: Assumed Care of patient, patient located in Hallway at shift change. Patient exhibited the following behavior Restless, Wandering, Disorganized. Brief assessment on rounds of vital signs, medication needs, lab studies, and pain. Treatment plan problems Dementia w/ BD and Fall Risk. Intervention: Patient assessed and the following interventions initiated safety checks 15 Minute Checks Cognitive Assessment , Head to toe Assessment , Medications. Response: After interactions and interventions patient responded in the following manner, Wandering , Disorganized ,Drowsy. Continue to assess behaviors and condition will continue to monitor throughout the shift as needed. 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 Continue to assess patient for changes in above assessment. Monitor for medication needs, pain, and safety concerns. Hourly rounding performed to ensure safe environment.
[2016-08-26 05:59] VITALS: BP 130/72
[2016-08-26] MEDS: traZODone 50 MG TABLET. PO SCH ×3 (07:58→19:22)
[2016-08-26] MEDS: busPIRone 10 MG TABLET. PO SCH ×4 (07:58→19:19)
[2016-08-26] MEDS: risperiDONE 0.25 MG TABLET. PO SCH ×4 (07:58→19:20)
[2016-08-26] MEDS: NICOTINE 21MG PATCH. TD SCH (07:58)
[2016-08-26] MEDS: LISINOPRIL 20 MG TABLET PO SCH (07:59)
[2016-08-26] MEDS: DOCUSATE CALCIUM 240 MG CAPSULE PO SCH (07:59)
[2016-08-26] MEDS: CITALOPRAM 10 MG TABLET. PO SCH (07:59)
[2016-08-26] MEDS: HALOPERIDOL LACT 5 MG/ML VIAL. IM SCH (08:02)
[2016-08-26] MEDS: LORazepam 2 MG/ML VIAL IM SCH (08:03)
--- NOTE | 2016-08-26 10:18 | NUR ---
Behavior Intervention Response and Plan: BIRP Note: Behavior: Assumed Care of patient, patient located in Patient Room at shift change. Patient exhibited the following behavior Calm, Disorganized, Compliant. Brief assessment on rounds of vital signs, medication needs, lab studies, and pain. Treatment plan problems . Intervention: Patient assessed and the following interventions initiated safety checks 15 Minute Checks Head to toe Assessment , Medications , Nutrition. Response: After interactions and interventions patient responded in the following manner, Interactive , Cooperative ,Drowsy. Continue to assess behaviors and condition will continue to monitor throughout the shift as needed. 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 Continue to assess patient for changes in above assessment. Monitor for medication needs, pain, and safety concerns. Hourly rounding performed to ensure safe environment.
[2016-08-26] MEDS: CHOLECALCIFEROL (VITAMIN D3) 1,000 UNIT TABLET PO SCH ×2 (13:10→16:02)
[2016-08-26 16:03] VITALS: BP 150/87
--- NOTE | 2016-08-26 18:19 | PN ---
DATE: 08/25/2016 PSYCHIATRIC PROGRESS NOTE This is late entry of 08/25/2016, covers elements not covered in my initial note. 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 Appetite is good. Fluid intake is good. REVIEW OF SYSTEMS: No CV, , pulmonary, eye system symptoms on review. Reliability poor. MENTAL STATUS EXAMINATION: Oriented to herself. Insight, judgment, recent and remote memory, attention, concentration, fund of knowledge poor, consistent with her diagnosis mentioned in my initial note. PLAN: Continue psychotropics mentioned in my initial note, adjust further as clinically indicated. MAN Quinten BHATT MD DR: ALICIA/shanon JOB#: [id number] / [id number]
[2016-08-26] MEDS: MELATONIN 3 MG TABLET PO SCH (19:19)
[2016-08-26] MEDS: MIRTAZAPINE 15 MG TABLET PO SCH (19:20)
[2016-08-26] MEDS: traZODone 100 MG TABLET. PO SCH (19:20)
--- NOTE | 2016-08-26 20:30 | PDOC ---
Exam Yaya Demential Exam: Yaya Note: Please also refer to the separate dictated note~for this date of service dictated separately.~Patient seen individually. Discussed the patient with Nursing staff reviewed the chart.~Reviewed interim history and current functioning. Reviewed vital signs,~Labs/ Radiology~and current medications noted below. Continue current treatment with the changes noted in the dictated addendum note Assessment: Vital Signs: Vital Signs Date Time Temp Pulse Resp B/P (MAP) Pulse Ox O2 Delivery O2 Flow Rate FiO2 08/26/16 16:03 97.9 68 17 150/87 (108) 98 08/24/16 16:03 Room Air I&O Intake and Output 08/26/16 07:00 Intake Total 840 ml Balance 840 ml Intake Oral 840 ml # Voids 1 Current Medications: Meds: Current Medications Diphenhydramine HCl (Benadryl) 25 mg Q6HRS PO ; Start 07/01/16 at 18:00; Stop at 18:00; Status DC Hydroxyzine HCl (Atarax) 25 mg PRN Q6HRS PRN PO ITCHING Last administered on 01:19; Start 07/01/16 at 15:15; Stop 07/06/16 at 04:21; Status DC Lisinopril (Prinivil) 20 mg DAILY PO Last administered on 08/26/16 07:59; Start 07/02/16 at 09:00 Lorazepam (Ativan) 0.5 mg PRN Q4HRS PRN PO ANXIETY / AGITATION Last administered on 07/02/16 21:07; Start 07/01/16 at 15:15; Stop 07/02/16 at 21:44 ; Status DC Nicotine (Nicoderm Cq 21mg) 1 patch DAILY TD Last administered on 08/26/16 07: 58; Start 07/02/16 at 09:00 Lorazepam (Ativan) 0.5 mg PRN Q4HRS PRN IV ANXIETY / AGITATION; Start 07/01/16 at 15:15; Stop 07/01/16 at 19:14; Status DC Diphenhydramine HCl (Benadryl) 25 mg PRN Q6HRS PRN IVP ITCHING; Start 07/01/16 at 15:15; Stop 07/01/16 at 19:14; Status DC Haloperidol Lactate (Haldol) 5 mg PRN Q6HRS PRN IM AGITATION; Start 07/01/16 at 15:15; Stop 07/01/16 at 19:14; Status DC Diphenhydramine HCl (Benadryl) 25 mg PRN Q6HRS PRN PO ITCHING Last administered on 07/01/16 20:56; Start 07/01/16 at 18:00 Acetaminophen/ Hydrocodone Bitart (Lortab 5/325) 1 tab PRN BID PRN PO PAIN Last administered on 08/06/16 13:12; Start 07/02/16 at 21:45 Olanzapine (Zyprexa Zydis) 2.5 mg PRN Q2HR PRN PO PSYCHOSIS Last administered on 08/24/16 15:17; Start 07/02/16 at 21:45 Mirtazapine (Remeron) 15 mg QHS PO Last administered on 08/26/16 19:20; Start 07/03/16 at 21:00 Citalopram Hydrobromide (Celexa) 10 mg DAILY PO Last administered on 08/26/16 07:59; Start 07/03/16 at 09:00 Risperidone (Risperdal) 0.25 mg BID PO Last administered on 07/10/16 08:54; Start 07/03/16 at 21:00; Stop 07/10/16 at 15:18; Status DC Docusate Calcium (Surfak) 240 mg DAILY PO Last administered on 08/26/16 07:59 ; Start 07/04/16 at 21:00 Magnesium Hydroxide (Milk Of Magnesia) 2,400 mg PRN QHS PRN PO CONSTIPATION; Start 07/04/16 at 18:15 Trazodone HCl (Desyrel) 50 mg QHS PO Last administered on 07/14/16 20:10; Start 07/05/16 at 21:00; Stop 07/15/16 at 13:52; Status DC Trazodone HCl (Desyrel) 50 mg PRN QHS PRN PO INSOMNIA Last administered on 21:27; Start 07/05/16 at 20:45; Stop 07/15/16 at 13:52; Status DC Hydroxyzine HCl (Atarax) 50 mg PRN Q2HR PRN PO Psychosis Last administered on 16:56; Start 07/06/16 at 04:30 Fentanyl (Duragesic 12mcg/ Hr) 1 patch Q3DAYS TD Last administered on 08:13; Start 07/08/16 at 18:30 Risperidone (Risperdal) 0.25 mg TID PO Last administered on 07/24/16 13:20; Start 07/10/16 at 21:00; Stop 07/24/16 at 18:29; Status DC Buspirone HCl (Buspar) 5 mg TID PO Last administered on 07/13/16 12:28; Start 07/10/16 at 21:00; Stop 07/13/16 at 15:32; Status DC Buspirone HCl (Buspar) 10 mg BID PO Last administered on 07/27/16 09:32; Start 07/13/16 at 21:00; Stop 07/27/16 at 18:29; Status DC Divalproex Sodium (Depakote Sprinkles) 125 mg BID PO Last administered on 07:46; Start 07/13/16 at 21:00; Stop 07/19/16 at 11:49; Status DC Vitamin D (Vitamin D3) 2,000 unit BIDPCLD PO Last administered on 08/26/16 16: 02; Start 07/14/16 at 12:30 Trazodone HCl (Desyrel) 100 mg QHS PO Last administered on 08/26/16 19:20; Start 07/15/16 at 21:00 Trazodone HCl (Desyrel) 100 mg PRN QHS PO ; Start 07/15/16 at 13:45; Stop at 23:01; Status DC Trazodone HCl (Desyrel) 100 mg PRN QHS PRN PO INSOMNIA Last administered on 00:53; Start 07/15/16 at 23:00 Quetiapine Fumarate (SEROquel) 50 mg 1X ONCE PO Last administered on 07/16/16 00:44; Start 07/16/16 at 00:30; Stop 07/16/16 at 00:31; Status DC Temazepam (Restoril) 30 mg PRN QHS PRN PO INSOMNIA Last administered on 19:04; Start 07/16/16 at 18:30; Stop 08/09/16 at 18:24; Status DC Divalproex Sodium (Depakote Sprinkles) 250 mg BID PO Last administered on 12:20; Start 07/19/16 at 21:00; Stop 07/22/16 at 18:23; Status DC Acetaminophen (Tylenol) 650 mg PRN Q6HRS PRN PO PAIN / TEMP Last administered on 08/24/16 13:04; Start 07/22/16 at 15:30 Divalproex Sodium (Depakote Sprinkles) 375 mg BID PO Last administered on 08:58; Start 07/22/16 at 21:00; Stop 08/04/16 at 17:56; Status DC Melatonin 6 mg QHS PO Last administered on 08/26/16 19:19; Start 07/22/16 at 21:00 Risperidone (Risperdal) 0.25 mg QID PO Last administered on 08/26/16 19:20; Start 07/24/16 at 21:00 Lorazepam (Ativan) 1 mg DAILY IM ; Start 07/27/16 at 09:00; Stop 07/27/16 at 09: 00; Status DC Lorazepam (Ativan) 1 mg 14 IM Last administered on 07/28/16 13:47; Start 07/26 at 15:00; Stop 07/29/16 at 14:13; Status DC Haloperidol Lactate (Haldol) 5 mg 1X ONCE IM Last administered on 07/27/16 16 :15; Start 07/27/16 at 16:15; Stop 07/27/16 at 16:16; Status DC Haloperidol Lactate (Haldol) 5 mg 14 IM Last administered on 07/28/16 13:46; Start 07/28/16 at 14:00; Stop 07/29/16 at 14:13; Status DC Buspirone HCl (Buspar) 10 mg TID PO Last administered on 08/04/16 08:58; Start 07/27/16 at 21:00; Stop 08/04/16 at 17:56; Status DC Trazodone HCl (Desyrel) 12.5 mg TIDWMEALS PO Last administered on 08/03/16 11: 58; Start 07/28/16 at 08:00; Stop 08/03/16 at 13:40; Status DC Fosfomycin Tromethamine (Monurol) 3 gm 1X ONCE PO Last administered on 06:27; Start 07/29/16 at 06:30; Stop 07/29/16 at 06:32; Status DC Trazodone HCl (Desyrel) 25 mg TIDWMEALS PO Last administered on 08/06/16 07:54 ; Start 08/03/16 at 17:00; Stop 08/06/16 at 11:24; Status DC Buspirone HCl (Buspar) 10 mg QID PO Last administered on 08/26/16 19:19; Start 08/04/16 at 21:00 Haloperidol Lactate (Haldol) 5 mg AFTRNOON IM Last administered on 08/17/16 13: 36; Start 08/05/16 at 13:15; Stop 08/19/16 at 18:30; Status DC Lorazepam (Ativan) 0.5 mg AFTRNOON IM Last administered on 08/17/16 13:36; Start 08/05/16 at 13:15; Stop 08/19/16 at 18:30; Status DC Oxcarbazepine (Trileptal) 300 mg BID PO Last administered on 08/11/16 09:48; Start 08/06/16 at 21:00; Stop 08/11/16 at 18:43; Status DC Trazodone HCl (Desyrel) 50 mg BID PO Last administered on 08/26/16 19:22; Start 08/06/16 at 21:00 Trazodone HCl (Desyrel) 50 mg 14 PO Last administered on 08/26/16 13:10; Start 08/06/16 at 14:00 Temazepam (Restoril) 15 mg PRN QHS PRN PO INSOMNIA Last administered on 19:39; Start 08/09/16 at 18:30 Oxcarbazepine (Trileptal) 300 mg TID PO Last administered on 08/26/16 19:20; Start 08/11/16 at 21:00 Haloperidol Decanoate (Haldol Decanoate Im Extended Release) 100 mg QMONTH IM Last administered on 08/13/16 21:04; Start 08/13/16 at 21:00 Haloperidol Lactate (Haldol) 5 mg QODAY IM Last administered on 08/26/16 08:02 ; Start 08/20/16 at 13:00 Lorazepam (Ativan) 0.5 mg QODAY IM Last administered on 08/26/16 08:03; Start 08/20/16 at 13:00 Active Scripts Active Lisinopril 20 Mg Tablet 1 Tab PO DAILY NICODERM CQ 21mg (Nicotine) 1 Each Patch.td24 1 Patch TP DAILY Lorazepam 0.5 Mg Tablet 1 Tab PO Q4HRS PRN Hydroxyzine Hcl 25 Mg Tablet 1 Tab PO Q6HRS PRN Benadryl (Diphenhydramine Hcl) 25 Mg Capsule 1 Cap PO Q6HRS CAITLYN BHATT MD August 26, 2016 20:30
--- NOTE | 2016-08-26 22:10 | NUR ---
Behavior Intervention Response and Plan: BIRP Note: Behavior: Assumed Care of patient, patient located in Hallway at shift change. Patient exhibited the following behavior Wandering, Calm, Disorganized. Brief assessment on rounds of vital signs, medication needs, lab studies, and pain. Treatment plan problems Dementia with BD and Fall Risk. Intervention: Patient assessed and the following interventions initiated safety checks 15 Minute Checks Cognitive Assessment , Head to toe Assessment , Medications. Response: After interactions and interventions patient responded in the following manner, Calm , Cooperative ,Drowsy. Continue to assess behaviors and condition will continue to monitor throughout the shift as needed. 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 Continue to assess patient for changes in above assessment. Monitor for medication needs, pain, and safety concerns. Hourly rounding performed to ensure safe environment.
[2016-08-27 05:40] VITALS: BP 156/74
[2016-08-27] MEDS: NICOTINE 21MG PATCH. TD SCH (08:33)
[2016-08-27] MEDS: DOCUSATE CALCIUM 240 MG CAPSULE PO SCH (08:33)
[2016-08-27] MEDS: risperiDONE 0.25 MG TABLET. PO SCH ×4 (08:33→19:02)
[2016-08-27] MEDS: LISINOPRIL 20 MG TABLET PO SCH (08:34)
[2016-08-27] MEDS: traZODone 50 MG TABLET. PO SCH ×3 (08:34→19:02)
[2016-08-27] MEDS: CITALOPRAM 10 MG TABLET. PO SCH (08:34)
[2016-08-27] MEDS: busPIRone 10 MG TABLET. PO SCH ×4 (08:34→19:02)
--- NOTE | 2016-08-27 09:41 | NUR ---
Behavior Intervention Response and Plan: BIRP Note: Behavior: Assumed Care of patient, patient located in Patient Room at shift change. Patient exhibited the following behavior Disorganized, Social, Cooperative. Brief assessment on rounds of vital signs, medication needs, lab studies, and pain. Treatment plan problems . Intervention: Patient assessed and the following interventions initiated safety checks 15 Minute Checks Head to toe Assessment , Medications , Nutrition. Response: After interactions and interventions patient responded in the following manner, Interactive , Wandering ,Exit Seeking. Continue to assess behaviors and condition will continue to monitor throughout the shift as needed. 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 Continue to assess patient for changes in above assessment. Monitor for medication needs, pain, and safety concerns. Hourly rounding performed to ensure safe environment.
--- NOTE | 2016-08-27 11:15 | NUR ---
THERAPEUTIC RECREATION GROUP NOTE TITLE :Movement to Music: Flexibility ACTIVITY : Movement/ Exercise GOAL : Increase morale, attention, flexibility. Decrease stress/anxiety. DURATION : 40 Minutes RESPONSE : Minimal participation. Pt. was invited to join but was confused. With encouragement, Pt. joined the group and stayed the entire time. She closed her eyes most of the time but when she awoke towards the end, she copied stretching moves on a smaller scale. At times, she did small dance moves to the music with a smile on her face
[2016-08-27] MEDS: CHOLECALCIFEROL (VITAMIN D3) 1,000 UNIT TABLET PO SCH ×2 (12:23→16:21)
--- NOTE | 2016-08-27 13:29 | NUR ---
Case Management Note Clinical update sent to Ashley at [facility] for potential placement.
--- NOTE | 2016-08-27 14:30 | NUR ---
THERAPEUTIC RECREATION GROUP NOTE TITLE :Coloring May Hernandes ACTIVITY : [employer] GOAL : Increase socialization, fine motor skills, creativity DURATION : 105 minutes RESPONSE : No participation.
--- NOTE | 2016-08-27 14:36 | NUR ---
[facility] unable to accept pt at this time, Asked SW to fax over updates on Wednesday and will reconsider if be available.
--- NOTE | 2016-08-27 14:45 | NUR ---
TIA spoke with Ashley at [facility], she will call financial underwriter back in the am, states unsure if able to take due to Medicaid pending.
[2016-08-27 15:41] VITALS: BP 160/80
[2016-08-27] MEDS: MELATONIN 3 MG TABLET PO SCH (19:02)
[2016-08-27] MEDS: MIRTAZAPINE 15 MG TABLET PO SCH (19:02)
[2016-08-27] MEDS: traZODone 100 MG TABLET. PO SCH (19:04)
--- NOTE | 2016-08-27 20:55 | PDOC ---
Exam Yaya Demential Exam: Yaya Note: Please also refer to the separate dictated note~for this date of service dictated separately.~Patient seen individually. Discussed the patient with Nursing staff reviewed the chart.~Reviewed interim history and current functioning. Reviewed vital signs,~Labs/ Radiology~and current medications noted below. Continue current treatment with the changes noted in the dictated addendum note Assessment: Vital Signs: Vital Signs Date Time Temp Pulse Resp B/P (MAP) Pulse Ox O2 Delivery O2 Flow Rate FiO2 08/27/16 15:41 97.5 75 18 160/80 (106) 99 08/24/16 16:03 Room Air I&O Intake and Output 08/27/16 07:00 Intake Total 670 ml Balance 670 ml Intake Oral 670 ml # Voids 1 Current Medications: Meds: Current Medications Diphenhydramine HCl (Benadryl) 25 mg Q6HRS PO ; Start 07/01/16 at 18:00; Stop at 18:00; Status DC Hydroxyzine HCl (Atarax) 25 mg PRN Q6HRS PRN PO ITCHING Last administered on 01:19; Start 07/01/16 at 15:15; Stop 07/06/16 at 04:21; Status DC Lisinopril (Prinivil) 20 mg DAILY PO Last administered on 08/27/16 08:34; Start 07/02/16 at 09:00 Lorazepam (Ativan) 0.5 mg PRN Q4HRS PRN PO ANXIETY / AGITATION Last administered on 07/02/16 21:07; Start 07/01/16 at 15:15; Stop 07/02/16 at 21:44 ; Status DC Nicotine (Nicoderm Cq 21mg) 1 patch DAILY TD Last administered on 08/27/16 08: 33; Start 07/02/16 at 09:00; Stop 08/27/16 at 13:53; Status DC Lorazepam (Ativan) 0.5 mg PRN Q4HRS PRN IV ANXIETY / AGITATION; Start 07/01/16 at 15:15; Stop 07/01/16 at 19:14; Status DC Diphenhydramine HCl (Benadryl) 25 mg PRN Q6HRS PRN IVP ITCHING; Start 07/01/16 at 15:15; Stop 07/01/16 at 19:14; Status DC Haloperidol Lactate (Haldol) 5 mg PRN Q6HRS PRN IM AGITATION; Start 07/01/16 at 15:15; Stop 07/01/16 at 19:14; Status DC Diphenhydramine HCl (Benadryl) 25 mg PRN Q6HRS PRN PO ITCHING Last administered on 07/01/16 20:56; Start 07/01/16 at 18:00 Acetaminophen/ Hydrocodone Bitart (Lortab 5/325) 1 tab PRN BID PRN PO PAIN Last administered on 08/06/16 13:12; Start 07/02/16 at 21:45 Olanzapine (Zyprexa Zydis) 2.5 mg PRN Q2HR PRN PO PSYCHOSIS Last administered on 08/24/16 15:17; Start 07/02/16 at 21:45 Mirtazapine (Remeron) 15 mg QHS PO Last administered on 08/27/16 19:02; Start 07/03/16 at 21:00 Citalopram Hydrobromide (Celexa) 10 mg DAILY PO Last administered on 08/27/16 08:34; Start 07/03/16 at 09:00 Risperidone (Risperdal) 0.25 mg BID PO Last administered on 07/10/16 08:54; Start 07/03/16 at 21:00; Stop 07/10/16 at 15:18; Status DC Docusate Calcium (Surfak) 240 mg DAILY PO Last administered on 08/27/16 08:33 ; Start 07/04/16 at 21:00 Magnesium Hydroxide (Milk Of Magnesia) 2,400 mg PRN QHS PRN PO CONSTIPATION; Start 07/04/16 at 18:15 Trazodone HCl (Desyrel) 50 mg QHS PO Last administered on 07/14/16 20:10; Start 07/05/16 at 21:00; Stop 07/15/16 at 13:52; Status DC Trazodone HCl (Desyrel) 50 mg PRN QHS PRN PO INSOMNIA Last administered on 21:27; Start 07/05/16 at 20:45; Stop 07/15/16 at 13:52; Status DC Hydroxyzine HCl (Atarax) 50 mg PRN Q2HR PRN PO Psychosis Last administered on 16:56; Start 07/06/16 at 04:30 Fentanyl (Duragesic 12mcg/ Hr) 1 patch Q3DAYS TD Last administered on 08:13; Start 07/08/16 at 18:30 Risperidone (Risperdal) 0.25 mg TID PO Last administered on 07/24/16 13:20; Start 07/10/16 at 21:00; Stop 07/24/16 at 18:29; Status DC Buspirone HCl (Buspar) 5 mg TID PO Last administered on 07/13/16 12:28; Start 07/10/16 at 21:00; Stop 07/13/16 at 15:32; Status DC Buspirone HCl (Buspar) 10 mg BID PO Last administered on 07/27/16 09:32; Start 07/13/16 at 21:00; Stop 07/27/16 at 18:29; Status DC Divalproex Sodium (Depakote Sprinkles) 125 mg BID PO Last administered on 07:46; Start 07/13/16 at 21:00; Stop 07/19/16 at 11:49; Status DC Vitamin D (Vitamin D3) 2,000 unit BIDPCLD PO Last administered on 08/27/16 16: 21; Start 07/14/16 at 12:30 Trazodone HCl (Desyrel) 100 mg QHS PO Last administered on 08/27/16 19:04; Start 07/15/16 at 21:00 Trazodone HCl (Desyrel) 100 mg PRN QHS PO ; Start 07/15/16 at 13:45; Stop at 23:01; Status DC Trazodone HCl (Desyrel) 100 mg PRN QHS PRN PO INSOMNIA Last administered on 00:53; Start 07/15/16 at 23:00 Quetiapine Fumarate (SEROquel) 50 mg 1X ONCE PO Last administered on 07/16/16 00:44; Start 07/16/16 at 00:30; Stop 07/16/16 at 00:31; Status DC Temazepam (Restoril) 30 mg PRN QHS PRN PO INSOMNIA Last administered on 19:04; Start 07/16/16 at 18:30; Stop 08/09/16 at 18:24; Status DC Divalproex Sodium (Depakote Sprinkles) 250 mg BID PO Last administered on 12:20; Start 07/19/16 at 21:00; Stop 07/22/16 at 18:23; Status DC Acetaminophen (Tylenol) 650 mg PRN Q6HRS PRN PO PAIN / TEMP Last administered on 08/24/16 13:04; Start 07/22/16 at 15:30 Divalproex Sodium (Depakote Sprinkles) 375 mg BID PO Last administered on 08:58; Start 07/22/16 at 21:00; Stop 08/04/16 at 17:56; Status DC Melatonin 6 mg QHS PO Last administered on 08/27/16 19:02; Start 07/22/16 at 21:00 Risperidone (Risperdal) 0.25 mg QID PO Last administered on 08/27/16 19:02; Start 07/24/16 at 21:00 Lorazepam (Ativan) 1 mg DAILY IM ; Start 07/27/16 at 09:00; Stop 07/27/16 at 09: 00; Status DC Lorazepam (Ativan) 1 mg 14 IM Last administered on 07/28/16 13:47; Start 07/26 at 15:00; Stop 07/29/16 at 14:13; Status DC Haloperidol Lactate (Haldol) 5 mg 1X ONCE IM Last administered on 07/27/16 16 :15; Start 07/27/16 at 16:15; Stop 07/27/16 at 16:16; Status DC Haloperidol Lactate (Haldol) 5 mg 14 IM Last administered on 07/28/16 13:46; Start 07/28/16 at 14:00; Stop 07/29/16 at 14:13; Status DC Buspirone HCl (Buspar) 10 mg TID PO Last administered on 08/04/16 08:58; Start 07/27/16 at 21:00; Stop 08/04/16 at 17:56; Status DC Trazodone HCl (Desyrel) 12.5 mg TIDWMEALS PO Last administered on 08/03/16 11: 58; Start 07/28/16 at 08:00; Stop 08/03/16 at 13:40; Status DC Fosfomycin Tromethamine (Monurol) 3 gm 1X ONCE PO Last administered on 06:27; Start 07/29/16 at 06:30; Stop 07/29/16 at 06:32; Status DC Trazodone HCl (Desyrel) 25 mg TIDWMEALS PO Last administered on 08/06/16 07:54 ; Start 08/03/16 at 17:00; Stop 08/06/16 at 11:24; Status DC Buspirone HCl (Buspar) 10 mg QID PO Last administered on 08/27/16 19:02; Start 08/04/16 at 21:00 Haloperidol Lactate (Haldol) 5 mg AFTRNOON IM Last administered on 08/17/16 13: 36; Start 08/05/16 at 13:15; Stop 08/19/16 at 18:30; Status DC Lorazepam (Ativan) 0.5 mg AFTRNOON IM Last administered on 08/17/16 13:36; Start 08/05/16 at 13:15; Stop 08/19/16 at 18:30; Status DC Oxcarbazepine (Trileptal) 300 mg BID PO Last administered on 08/11/16 09:48; Start 08/06/16 at 21:00; Stop 08/11/16 at 18:43; Status DC Trazodone HCl (Desyrel) 50 mg BID PO Last administered on 08/27/16 19:02; Start 08/06/16 at 21:00 Trazodone HCl (Desyrel) 50 mg 14 PO Last administered on 08/27/16 13:15; Start 08/06/16 at 14:00 Temazepam (Restoril) 15 mg PRN QHS PRN PO INSOMNIA Last administered on 19:39; Start 08/09/16 at 18:30 Oxcarbazepine (Trileptal) 300 mg TID PO Last administered on 08/27/16 19:02; Start 08/11/16 at 21:00 Haloperidol Decanoate (Haldol Decanoate Im Extended Release) 100 mg QMONTH IM Last administered on 08/13/16 21:04; Start 08/13/16 at 21:00 Haloperidol Lactate (Haldol) 5 mg QODAY IM Last administered on 08/26/16 08:02 ; Start 08/20/16 at 13:00 Lorazepam (Ativan) 0.5 mg QODAY IM Last administered on 08/26/16 08:03; Start 08/20/16 at 13:00 Nicotine (Nicoderm Cq 14mg) 1 patch DAILY TD ; Start 08/28/16 at 09:00; Stop at 08:59 Nicotine (Nicoderm Cq 7mg) 1 patch DAILY TD ; Start 09/04/16 at 09:00; Stop 09/11 at 08:59 Active Scripts Active Lisinopril 20 Mg Tablet 1 Tab PO DAILY NICODERM CQ 21mg (Nicotine) 1 Each Patch.td24 1 Patch TP DAILY Lorazepam 0.5 Mg Tablet 1 Tab PO Q4HRS PRN Hydroxyzine Hcl 25 Mg Tablet 1 Tab PO Q6HRS PRN Benadryl (Diphenhydramine Hcl) 25 Mg Capsule 1 Cap PO Q6HRS CAITLYN BHATT MD August 27, 2016 20:55
--- NOTE | 2016-08-27 21:06 | NUR ---
Behavior Intervention Response and Plan: BIRP Note: Behavior: Assumed Care of patient, patient located in Day Room at shift change. Patient exhibited the following behavior Wandering, Restless, Exit Seeking. Brief assessment on rounds of vital signs, medication needs, lab studies, and pain. Treatment plan problems . Intervention: Patient assessed and the following interventions initiated safety checks 15 Minute Checks Cognitive Assessment , Head to toe Assessment , Medications. Response: After interactions and interventions patient responded in the following manner, Compliant , Cooperative ,Delusions. Continue to assess behaviors and condition will continue to monitor throughout the shift as needed. Plan: Continue to monitor Master Treatment Plan for patient's progress toward short term goals of Decreased Anxiety, Medication Compliance, terminal manager goals to return to previous living setting vs placement. Continue to assess patient for changes in above assessment. Monitor for medication needs, pain, and safety concerns. Hourly rounding performed to ensure safe environment.
[2016-08-28 05:15] VITALS: BP 103/48
[2016-08-28] MEDS: busPIRone 10 MG TABLET. PO SCH ×4 (07:43→19:29)
[2016-08-28] MEDS: DOCUSATE CALCIUM 240 MG CAPSULE PO SCH (07:43)
[2016-08-28] MEDS: CITALOPRAM 10 MG TABLET. PO SCH (07:43)
[2016-08-28] MEDS: risperiDONE 0.25 MG TABLET. PO SCH ×4 (07:43→19:30)
[2016-08-28] MEDS: traZODone 50 MG TABLET. PO SCH ×3 (07:43→19:31)
[2016-08-28] MEDS: LISINOPRIL 20 MG TABLET PO SCH (07:44)
[2016-08-28] MEDS: fentaNYL 12MCG/HR 1 PATCH PATCH TD SCH (07:47)
[2016-08-28] MEDS: LORazepam 2 MG/ML VIAL IM SCH (07:47)
[2016-08-28] MEDS: NICOTINE 14MG PATCH. TD SCH (07:47)
[2016-08-28] MEDS: HALOPERIDOL LACT 5 MG/ML VIAL. IM SCH (07:47)
--- NOTE | 2016-08-28 09:23 | NUR ---
Behavior Intervention Response and Plan: BIRP Note: Behavior: Assumed Care of patient, patient located in Dining Room at shift change. Patient exhibited the following behavior Disorganized, Calm, . Brief assessment on rounds of vital signs, medication needs, lab studies, and pain. Treatment plan problems . Intervention: Patient assessed and the following interventions initiated safety checks 15 Minute Checks Cognitive Assessment , Head to toe Assessment , Medications. Response: After interactions and interventions patient responded in the following manner, Compliant , Disorganized ,Drowsy. Continue to assess behaviors and condition will continue to monitor throughout the shift as needed. Plan: Continue to monitor Master Treatment Plan for patient's progress toward short term goals of Decreased Agitation, Decreased Aggression, senior living goals to return to previous living setting vs placement. Continue to assess patient for changes in above assessment. Monitor for medication needs, pain, and safety concerns. Hourly rounding performed to ensure safe environment.
[2016-08-28] MEDS: CHOLECALCIFEROL (VITAMIN D3) 1,000 UNIT TABLET PO SCH ×2 (12:10→17:32)
--- NOTE | 2016-08-28 14:15 | NUR ---
THERAPEUTIC RECREATION GROUP NOTE TITLE :Leisure Awareness: [place] [employer] Fun ACTIVITY : Leisure Awareness GOAL : Increase knowledge of leisure activities DURATION : 45 Minutes RESPONSE : Full participation. Pt. was calm and needed clues and repeat prompting to participate fully. She sat quietly when it was not her turn
--- NOTE | 2016-08-28 14:16 | NUR ---
Group Note [facility] Group Type Flower of gratefulness Start Time: 13:00 End Time: 14:10 Problem: Anxiety Purpose: Elevate Mood, Increase stimulation, stimulate thought process, promote socialization Level of Participation: High Behaviors or Symptoms Observed: Participates sat within a group setting and wrote on each petal of the flower something they were grateful for. Group discussed each persons flower petals as group. Then each person decorated their cedeño. Interventions: Directed Focus Plan: group. Additional Comments: Aliya was able to sit through the group. Aliya discussed what she was thankful for, and colored the flower red as she feels red means beautiful
[2016-08-28 16:13] VITALS: BP 129/84
--- NOTE | 2016-08-28 18:11 | NUR ---
pt up adl to meals. wanders in halls. started talking about leaving and getting her purse. gave zydis prn. has taken meds and has been compliant with cares.
[2016-08-28] MEDS: traZODone 100 MG TABLET. PO SCH (19:29)
[2016-08-28] MEDS: MELATONIN 3 MG TABLET PO SCH (19:30)
[2016-08-28] MEDS: MIRTAZAPINE 15 MG TABLET PO SCH (19:30)
--- NOTE | 2016-08-28 20:59 | PDOC ---
Exam Yaya Demential Exam: Yaya Note: Please also refer to the separate dictated note~for this date of service dictated separately.~Patient seen individually. Discussed the patient with Nursing staff reviewed the chart.~Reviewed interim history and current functioning. Reviewed vital signs,~Labs/ Radiology~and current medications noted below. Continue current treatment with the changes noted in the dictated addendum note Assessment: Vital Signs: Vital Signs Date Time Temp Pulse Resp B/P (MAP) Pulse Ox O2 Delivery O2 Flow Rate FiO2 08/28/16 16:13 97.8 64 16 129/84 (99) 95 08/24/16 16:03 Room Air I&O Intake and Output 08/28/16 07:00 Intake Total 1200 ml Balance 1200 ml Intake Oral 1200 ml Current Medications: Meds: Current Medications Diphenhydramine HCl (Benadryl) 25 mg Q6HRS PO ; Start 07/01/16 at 18:00; Stop at 18:00; Status DC Hydroxyzine HCl (Atarax) 25 mg PRN Q6HRS PRN PO ITCHING Last administered on 01:19; Start 07/01/16 at 15:15; Stop 07/06/16 at 04:21; Status DC Lisinopril (Prinivil) 20 mg DAILY PO Last administered on 08/27/16 08:34; Start 07/02/16 at 09:00 Lorazepam (Ativan) 0.5 mg PRN Q4HRS PRN PO ANXIETY / AGITATION Last administered on 07/02/16 21:07; Start 07/01/16 at 15:15; Stop 07/02/16 at 21:44 ; Status DC Nicotine (Nicoderm Cq 21mg) 1 patch DAILY TD Last administered on 08/27/16 08: 33; Start 07/02/16 at 09:00; Stop 08/27/16 at 13:53; Status DC Lorazepam (Ativan) 0.5 mg PRN Q4HRS PRN IV ANXIETY / AGITATION; Start 07/01/16 at 15:15; Stop 07/01/16 at 19:14; Status DC Diphenhydramine HCl (Benadryl) 25 mg PRN Q6HRS PRN IVP ITCHING; Start 07/01/16 at 15:15; Stop 07/01/16 at 19:14; Status DC Haloperidol Lactate (Haldol) 5 mg PRN Q6HRS PRN IM AGITATION; Start 07/01/16 at 15:15; Stop 07/01/16 at 19:14; Status DC Diphenhydramine HCl (Benadryl) 25 mg PRN Q6HRS PRN PO ITCHING Last administered on 07/01/16 20:56; Start 07/01/16 at 18:00 Acetaminophen/ Hydrocodone Bitart (Lortab 5/325) 1 tab PRN BID PRN PO PAIN Last administered on 08/06/16 13:12; Start 07/02/16 at 21:45 Olanzapine (Zyprexa Zydis) 2.5 mg PRN Q2HR PRN PO PSYCHOSIS Last administered on 08/28/16 17:32; Start 07/02/16 at 21:45 Mirtazapine (Remeron) 15 mg QHS PO Last administered on 08/28/16 19:30; Start 07/03/16 at 21:00 Citalopram Hydrobromide (Celexa) 10 mg DAILY PO Last administered on 08/28/16 07:43; Start 07/03/16 at 09:00 Risperidone (Risperdal) 0.25 mg BID PO Last administered on 07/10/16 08:54; Start 07/03/16 at 21:00; Stop 07/10/16 at 15:18; Status DC Docusate Calcium (Surfak) 240 mg DAILY PO Last administered on 08/28/16 07:43 ; Start 07/04/16 at 21:00 Magnesium Hydroxide (Milk Of Magnesia) 2,400 mg PRN QHS PRN PO CONSTIPATION; Start 07/04/16 at 18:15 Trazodone HCl (Desyrel) 50 mg QHS PO Last administered on 07/14/16 20:10; Start 07/05/16 at 21:00; Stop 07/15/16 at 13:52; Status DC Trazodone HCl (Desyrel) 50 mg PRN QHS PRN PO INSOMNIA Last administered on 21:27; Start 07/05/16 at 20:45; Stop 07/15/16 at 13:52; Status DC Hydroxyzine HCl (Atarax) 50 mg PRN Q2HR PRN PO Psychosis Last administered on 16:56; Start 07/06/16 at 04:30 Fentanyl (Duragesic 12mcg/ Hr) 1 patch Q3DAYS TD Last administered on 07:47; Start 07/08/16 at 18:30 Risperidone (Risperdal) 0.25 mg TID PO Last administered on 07/24/16 13:20; Start 07/10/16 at 21:00; Stop 07/24/16 at 18:29; Status DC Buspirone HCl (Buspar) 5 mg TID PO Last administered on 07/13/16 12:28; Start 07/10/16 at 21:00; Stop 07/13/16 at 15:32; Status DC Buspirone HCl (Buspar) 10 mg BID PO Last administered on 07/27/16 09:32; Start 07/13/16 at 21:00; Stop 07/27/16 at 18:29; Status DC Divalproex Sodium (Depakote Sprinkles) 125 mg BID PO Last administered on 07:46; Start 07/13/16 at 21:00; Stop 07/19/16 at 11:49; Status DC Vitamin D (Vitamin D3) 2,000 unit BIDPCLD PO Last administered on 08/28/16 17: 32; Start 07/14/16 at 12:30 Trazodone HCl (Desyrel) 100 mg QHS PO Last administered on 08/28/16 19:29; Start 07/15/16 at 21:00 Trazodone HCl (Desyrel) 100 mg PRN QHS PO ; Start 07/15/16 at 13:45; Stop at 23:01; Status DC Trazodone HCl (Desyrel) 100 mg PRN QHS PRN PO INSOMNIA Last administered on 00:53; Start 07/15/16 at 23:00 Quetiapine Fumarate (SEROquel) 50 mg 1X ONCE PO Last administered on 07/16/16 00:44; Start 07/16/16 at 00:30; Stop 07/16/16 at 00:31; Status DC Temazepam (Restoril) 30 mg PRN QHS PRN PO INSOMNIA Last administered on 19:04; Start 07/16/16 at 18:30; Stop 08/09/16 at 18:24; Status DC Divalproex Sodium (Depakote Sprinkles) 250 mg BID PO Last administered on 12:20; Start 07/19/16 at 21:00; Stop 07/22/16 at 18:23; Status DC Acetaminophen (Tylenol) 650 mg PRN Q6HRS PRN PO PAIN / TEMP Last administered on 08/24/16 13:04; Start 07/22/16 at 15:30 Divalproex Sodium (Depakote Sprinkles) 375 mg BID PO Last administered on 08:58; Start 07/22/16 at 21:00; Stop 08/04/16 at 17:56; Status DC Melatonin 6 mg QHS PO Last administered on 08/28/16 19:30; Start 07/22/16 at 21:00 Risperidone (Risperdal) 0.25 mg QID PO Last administered on 08/28/16 19:30; Start 07/24/16 at 21:00 Lorazepam (Ativan) 1 mg DAILY IM ; Start 07/27/16 at 09:00; Stop 07/27/16 at 09: 00; Status DC Lorazepam (Ativan) 1 mg 14 IM Last administered on 07/28/16 13:47; Start 07/26 at 15:00; Stop 07/29/16 at 14:13; Status DC Haloperidol Lactate (Haldol) 5 mg 1X ONCE IM Last administered on 07/27/16 16 :15; Start 07/27/16 at 16:15; Stop 07/27/16 at 16:16; Status DC Haloperidol Lactate (Haldol) 5 mg 14 IM Last administered on 07/28/16 13:46; Start 07/28/16 at 14:00; Stop 07/29/16 at 14:13; Status DC Buspirone HCl (Buspar) 10 mg TID PO Last administered on 08/04/16 08:58; Start 07/27/16 at 21:00; Stop 08/04/16 at 17:56; Status DC Trazodone HCl (Desyrel) 12.5 mg TIDWMEALS PO Last administered on 08/03/16 11: 58; Start 07/28/16 at 08:00; Stop 08/03/16 at 13:40; Status DC Fosfomycin Tromethamine (Monurol) 3 gm 1X ONCE PO Last administered on 06:27; Start 07/29/16 at 06:30; Stop 07/29/16 at 06:32; Status DC Trazodone HCl (Desyrel) 25 mg TIDWMEALS PO Last administered on 08/06/16 07:54 ; Start 08/03/16 at 17:00; Stop 08/06/16 at 11:24; Status DC Buspirone HCl (Buspar) 10 mg QID PO Last administered on 08/28/16 19:29; Start 08/04/16 at 21:00 Haloperidol Lactate (Haldol) 5 mg AFTRNOON IM Last administered on 08/17/16 13: 36; Start 08/05/16 at 13:15; Stop 08/19/16 at 18:30; Status DC Lorazepam (Ativan) 0.5 mg AFTRNOON IM Last administered on 08/17/16 13:36; Start 08/05/16 at 13:15; Stop 08/19/16 at 18:30; Status DC Oxcarbazepine (Trileptal) 300 mg BID PO Last administered on 08/11/16 09:48; Start 08/06/16 at 21:00; Stop 08/11/16 at 18:43; Status DC Trazodone HCl (Desyrel) 50 mg BID PO Last administered on 08/28/16 19:31; Start 08/06/16 at 21:00 Trazodone HCl (Desyrel) 50 mg 14 PO Last administered on 08/28/16 12:09; Start 08/06/16 at 14:00 Temazepam (Restoril) 15 mg PRN QHS PRN PO INSOMNIA Last administered on 19:39; Start 08/09/16 at 18:30 Oxcarbazepine (Trileptal) 300 mg TID PO Last administered on 08/28/16 19:30; Start 08/11/16 at 21:00 Haloperidol Decanoate (Haldol Decanoate Im Extended Release) 100 mg QMONTH IM Last administered on 08/13/16 21:04; Start 08/13/16 at 21:00 Haloperidol Lactate (Haldol) 5 mg QODAY IM Last administered on 08/28/16 07:47 ; Start 08/20/16 at 13:00 Lorazepam (Ativan) 0.5 mg QODAY IM Last administered on 08/28/16 07:47; Start 08/20/16 at 13:00 Nicotine (Nicoderm Cq 14mg) 1 patch DAILY TD Last administered on 08/28/16 07: 47; Start 08/28/16 at 09:00; Stop 09/04/16 at 08:59 Nicotine (Nicoderm Cq 7mg) 1 patch DAILY TD ; Start 09/04/16 at 09:00; Stop 09/11 at 08:59 Active Scripts Active Lisinopril 20 Mg Tablet 1 Tab PO DAILY NICODERM CQ 21mg (Nicotine) 1 Each Patch.td24 1 Patch TP DAILY Lorazepam 0.5 Mg Tablet 1 Tab PO Q4HRS PRN Hydroxyzine Hcl 25 Mg Tablet 1 Tab PO Q6HRS PRN Benadryl (Diphenhydramine Hcl) 25 Mg Capsule 1 Cap PO Q6HRS CAITLYN BHATT MD August 28, 2016 20:59
--- NOTE | 2016-08-28 23:00 | NUR ---
Behavior Intervention Response and Plan: BIRP Note: Behavior: Assumed Care of patient, patient located in Day Room at shift change. Patient exhibited the following behavior Wandering, Calm, Disorganized. Brief assessment on rounds of vital signs, medication needs, lab studies, and pain. Treatment plan problems Dementia W BD, Altered Mental Status, and Fall Risk. Intervention: Patient assessed and the following interventions initiated safety checks 15 Minute Checks Cognitive Assessment , Medications , Nutrition. Response: After interactions and interventions patient responded in the following manner, Calm , Compliant ,Cooperative. Continue to assess behaviors and condition will continue to monitor throughout the shift as needed. Plan: Continue to monitor Master Treatment Plan for patient's progress toward short term goals of Decreased Agitation, Medication Compliance, mcc goals to return to previous living setting vs placement. Continue to assess patient for changes in above assessment. Monitor for medication needs, pain, and safety concerns. Hourly rounding performed to ensure safe environment.
--- NOTE | 2016-08-28 23:55 | PN ---
DATE: 08/26/2016 This is a late entry 08/26/2016, covers the elements not covered in my initial note. SUBJECTIVE: The patient slept about 6-1/2 hours. Overall, did better during the day on 08/26/2016, wandering and urinated on the floor once redirected. REVIEW OF SYSTEMS: No CV, , pulmonary, eye, ENT system symptoms on review. Reliability poor. MENTAL STATUS EXAM: Oriented to herself. Insight, judgment, recent and remote memory, attention, concentration, fund of knowledge poor, consistent with her diagnosis mentioned in my initial note. PLAN: Continue psychotropics as mentioned in my initial note. Adjust further as clinically indicated. MAN Quinten BHATT MD DR: ALICIA/shanon JOB#: [id number] / [id number]
--- NOTE | 2016-08-28 23:55 | PN ---
DATE: 08/27/2016 PSYCHIATRIC PROGRESS NOTE This is a late entry 08/27/2016 covers the elements not covered in my initial note. SUBJECTIVE: The patient was staffed at a treatment team meeting with the entire team 08/27/2016 in the morning, met with her in the evening of 08/27/2016 individually. She was restless the previous night, takes her medication whole, not constipated. REVIEW OF SYSTEMS: No CV, , pulmonary, eye, ENT system symptoms on review. Reliability poor. MENTAL STATUS EXAM: Oriented to herself. Insight, judgment, recent and remote memory, attention, concentration, fund of knowledge poor, consistent with her diagnosis mentioned in my initial note. PLAN: Continue psychotropics mentioned in my initial note. She remains on the IM Haldol, Ativan every other day since oral meds were ineffective. May need to stop the IM before transition to a detention. MAN Quinten BHATT MD DR: ALICIA/shanon JOB#: [id number] / [id number]
[2016-08-29 05:54] VITALS: BP 154/90
[2016-08-29] MEDS: CITALOPRAM 10 MG TABLET. PO SCH (07:43)
[2016-08-29] MEDS: traZODone 50 MG TABLET. PO SCH ×3 (07:43→19:34)
[2016-08-29] MEDS: DOCUSATE CALCIUM 240 MG CAPSULE PO SCH (07:43)
[2016-08-29] MEDS: busPIRone 10 MG TABLET. PO SCH ×4 (07:43→19:34)
[2016-08-29] MEDS: NICOTINE 14MG PATCH. TD SCH (07:44)
[2016-08-29] MEDS: LISINOPRIL 20 MG TABLET PO SCH (07:44)
[2016-08-29] MEDS: risperiDONE 0.25 MG TABLET. PO SCH ×4 (07:45→19:34)
--- NOTE | 2016-08-29 09:51 | NUR ---
Behavior Intervention Response and Plan: BIRP Note: Behavior: Assumed Care of patient, patient located in Dining Room at shift change. Patient exhibited the following behavior Disorganized, Calm, . Brief assessment on rounds of vital signs, medication needs, lab studies, and pain. Treatment plan problems . Intervention: Patient assessed and the following interventions initiated safety checks 15 Minute Checks Cognitive Assessment , Head to toe Assessment , Medications. Response: After interactions and interventions patient responded in the following manner, Compliant , Disorganized ,Drowsy. Continue to assess behaviors and condition will continue to monitor throughout the shift as needed. Plan: Continue to monitor Master Treatment Plan for patient's progress toward short term goals of Decreased Agitation, Decreased Aggression, skilled nursing goals to return to previous living setting vs placement. Continue to assess patient for changes in above assessment. Monitor for medication needs, pain, and safety concerns. Hourly rounding performed to ensure safe environment.
[2016-08-29] MEDS: CHOLECALCIFEROL (VITAMIN D3) 1,000 UNIT TABLET PO SCH ×2 (12:30→16:48)
[2016-08-29 15:30] LABS: ALBUMIN 3.7 g/dL (3.4-5.0); ALBUMIN/GLOBULIN RATIO 0.9 (1.0-1.7); CALCIUM 9.1 mg/dL (8.5-10.1); CREATININE 0.7 mg/dL (0.6-1.0); GFR 82.5; MAGNESIUM 1.9 mg/dL (1.8-2.4); POTASSIUM 4.3 mmol/L (3.5-5.1); TOTAL BILIRUBIN 0.3 mg/dL (0.2-1.0); TOTAL PROTEIN 7.7 g/dL (6.4-8.2)
[2016-08-29 15:33] LABS: BASO % 0 % (0-3); EOS # 0.4 x10^3/uL (0.0-0.7); EOS % 3 % (0-3); HEMOGLOBIN 11.8 g/dL (12.0-15.5); LYMPH % 31 % (24-48); MEAN CORPUSCULAR HEMOGLOBIN 29 pg (25-35); MEAN CORPUSCULAR HGB CONC 33 g/dL (31-37); MEAN CORPUSCULAR VOLUME 88 fL (79-100); MONO # 1.2 x10^3/uL (0.0-1.1); MONO % 9 % (0-9); NEUT # 7.4 x10^3uL (1.8-7.7); NEUT % 57 % (31-73); PLATELET COUNT 334 x10^3/uL (140-400); RED BLOOD COUNT 4.08 x10^6/uL (3.50-5.40)
--- NOTE | 2016-08-29 15:57 | NUR ---
pt up in halls. restless wandering. complaint with meds and cares. exit seeking at times. redirectable.
[2016-08-29 16:23] VITALS: BP 176/98
[2016-08-29] MEDS: MELATONIN 3 MG TABLET PO SCH (19:33)
[2016-08-29] MEDS: traZODone 100 MG TABLET. PO SCH (19:34)
[2016-08-29] MEDS: MIRTAZAPINE 15 MG TABLET PO SCH (19:34)
--- NOTE | 2016-08-29 20:43 | PDOC ---
Exam Yaya Demential Exam: Yaya Note: Please also refer to the separate dictated note~for this date of service dictated separately.~Patient seen individually. Discussed the patient with Nursing staff reviewed the chart.~Reviewed interim history and current functioning. Reviewed vital signs,~Labs/ Radiology~and current medications noted below. Continue current treatment with the changes noted in the dictated addendum note Assessment: Vital Signs: Vital Signs Date Time Temp Pulse Resp B/P (MAP) Pulse Ox O2 Delivery O2 Flow Rate FiO2 08/29/16 16:23 98.3 66 20 176/98 (124) 99 08/24/16 16:03 Room Air I&O Intake and Output 08/29/16 07:00 Intake Total 1200 ml Balance 1200 ml Intake Oral 1200 ml # Bowel Movements 1 Labs: Laboratory Tests Test 08/29/16 14:46 White Blood Count 13.0 x10^3/uL (4.0-11.0) H Red Blood Count 4.08 x10^6/uL (3.50-5.40) Hemoglobin 11.8 g/dL (12.0-15.5) L Hematocrit 36.0 % (36.0-47.0) Mean Corpuscular Volume 88 fL (79-100) Mean Corpuscular Hemoglobin 29 pg (25-35) Mean Corpuscular Hemoglobin Concent 33 g/dL (31-37) Red Cell Distribution Width 15.0 % (11.5-14.5) H Platelet Count 334 x10^3/uL (140-400) Neutrophils (%) (Auto) 57 % (31-73) Lymphocytes (%) (Auto) 31 % (24-48) Monocytes (%) (Auto) 9 % (0-9) Eosinophils (%) (Auto) 3 % (0-3) Basophils (%) (Auto) 0 % (0-3) Neutrophils # (Auto) 7.4 x10^3uL (1.8-7.7) Lymphocytes # (Auto) 4.0 x10^3/uL (1.0-4.8) Monocytes # (Auto) 1.2 x10^3/uL (0.0-1.1) H Eosinophils # (Auto) 0.4 x10^3/uL (0.0-0.7) Basophils # (Auto) 0.0 x10^3/uL (0.0-0.2) Sodium Level 143 mmol/L (136-145) Potassium Level 4.3 mmol/L (3.5-5.1) Chloride Level 104 mmol/L (98-107) Carbon Dioxide Level 31 mmol/L (21-32) Anion Gap 8 (6-14) Blood Urea Nitrogen 17 mg/dL (7-20) Creatinine 0.7 mg/dL (0.6-1.0) Estimated GFR (Cockcroft-Gault) 82.5 BUN/Creatinine Ratio 24 (6-20) H Glucose Level 89 mg/dL (70-99) Calcium Level 9.1 mg/dL (8.5-10.1) Magnesium Level 1.9 mg/dL (1.8-2.4) Total Bilirubin 0.3 mg/dL (0.2-1.0) Aspartate Amino Transferase (AST) 16 U/L (15-37) Alanine Aminotransferase (ALT) 32 U/L (14-59) Alkaline Phosphatase 103 U/L (46-116) Total Protein 7.7 g/dL (6.4-8.2) Albumin 3.7 g/dL (3.4-5.0) Albumin/Globulin Ratio 0.9 (1.0-1.7) L Current Medications: Meds: Current Medications Diphenhydramine HCl (Benadryl) 25 mg Q6HRS PO ; Start 07/01/16 at 18:00; Stop at 18:00; Status DC Hydroxyzine HCl (Atarax) 25 mg PRN Q6HRS PRN PO ITCHING Last administered on 01:19; Start 07/01/16 at 15:15; Stop 07/06/16 at 04:21; Status DC Lisinopril (Prinivil) 20 mg DAILY PO Last administered on 08/29/16 07:44; Start 07/02/16 at 09:00 Lorazepam (Ativan) 0.5 mg PRN Q4HRS PRN PO ANXIETY / AGITATION Last administered on 07/02/16 21:07; Start 07/01/16 at 15:15; Stop 07/02/16 at 21:44 ; Status DC Nicotine (Nicoderm Cq 21mg) 1 patch DAILY TD Last administered on 08/27/16 08: 33; Start 07/02/16 at 09:00; Stop 08/27/16 at 13:53; Status DC Lorazepam (Ativan) 0.5 mg PRN Q4HRS PRN IV ANXIETY / AGITATION; Start 07/01/16 at 15:15; Stop 07/01/16 at 19:14; Status DC Diphenhydramine HCl (Benadryl) 25 mg PRN Q6HRS PRN IVP ITCHING; Start 07/01/16 at 15:15; Stop 07/01/16 at 19:14; Status DC Haloperidol Lactate (Haldol) 5 mg PRN Q6HRS PRN IM AGITATION; Start 07/01/16 at 15:15; Stop 07/01/16 at 19:14; Status DC Diphenhydramine HCl (Benadryl) 25 mg PRN Q6HRS PRN PO ITCHING Last administered on 07/01/16 20:56; Start 07/01/16 at 18:00 Acetaminophen/ Hydrocodone Bitart (Lortab 5/325) 1 tab PRN BID PRN PO PAIN Last administered on 08/06/16 13:12; Start 07/02/16 at 21:45 Olanzapine (Zyprexa Zydis) 2.5 mg PRN Q2HR PRN PO PSYCHOSIS Last administered on 08/28/16 17:32; Start 07/02/16 at 21:45 Mirtazapine (Remeron) 15 mg QHS PO Last administered on 08/28/16 19:30; Start 07/03/16 at 21:00 Citalopram Hydrobromide (Celexa) 10 mg DAILY PO Last administered on 08/29/16 07:43; Start 07/03/16 at 09:00 Risperidone (Risperdal) 0.25 mg BID PO Last administered on 07/10/16 08:54; Start 07/03/16 at 21:00; Stop 07/10/16 at 15:18; Status DC Docusate Calcium (Surfak) 240 mg DAILY PO Last administered on 08/29/16 07:43 ; Start 07/04/16 at 21:00 Magnesium Hydroxide (Milk Of Magnesia) 2,400 mg PRN QHS PRN PO CONSTIPATION; Start 07/04/16 at 18:15 Trazodone HCl (Desyrel) 50 mg QHS PO Last administered on 07/14/16 20:10; Start 07/05/16 at 21:00; Stop 07/15/16 at 13:52; Status DC Trazodone HCl (Desyrel) 50 mg PRN QHS PRN PO INSOMNIA Last administered on 21:27; Start 07/05/16 at 20:45; Stop 07/15/16 at 13:52; Status DC Hydroxyzine HCl (Atarax) 50 mg PRN Q2HR PRN PO Psychosis Last administered on 16:56; Start 07/06/16 at 04:30 Fentanyl (Duragesic 12mcg/ Hr) 1 patch Q3DAYS TD Last administered on 07:47; Start 07/08/16 at 18:30 Risperidone (Risperdal) 0.25 mg TID PO Last administered on 07/24/16 13:20; Start 07/10/16 at 21:00; Stop 07/24/16 at 18:29; Status DC Buspirone HCl (Buspar) 5 mg TID PO Last administered on 07/13/16 12:28; Start 07/10/16 at 21:00; Stop 07/13/16 at 15:32; Status DC Buspirone HCl (Buspar) 10 mg BID PO Last administered on 07/27/16 09:32; Start 07/13/16 at 21:00; Stop 07/27/16 at 18:29; Status DC Divalproex Sodium (Depakote Sprinkles) 125 mg BID PO Last administered on 07:46; Start 07/13/16 at 21:00; Stop 07/19/16 at 11:49; Status DC Vitamin D (Vitamin D3) 2,000 unit BIDPCLD PO Last administered on 08/29/16 12: 30; Start 07/14/16 at 12:30 Trazodone HCl (Desyrel) 100 mg QHS PO Last administered on 08/28/16 19:29; Start 07/15/16 at 21:00 Trazodone HCl (Desyrel) 100 mg PRN QHS PO ; Start 07/15/16 at 13:45; Stop at 23:01; Status DC Trazodone HCl (Desyrel) 100 mg PRN QHS PRN PO INSOMNIA Last administered on 00:53; Start 07/15/16 at 23:00 Quetiapine Fumarate (SEROquel) 50 mg 1X ONCE PO Last administered on 07/16/16 00:44; Start 07/16/16 at 00:30; Stop 07/16/16 at 00:31; Status DC Temazepam (Restoril) 30 mg PRN QHS PRN PO INSOMNIA Last administered on 19:04; Start 07/16/16 at 18:30; Stop 08/09/16 at 18:24; Status DC Divalproex Sodium (Depakote Sprinkles) 250 mg BID PO Last administered on 12:20; Start 07/19/16 at 21:00; Stop 07/22/16 at 18:23; Status DC Acetaminophen (Tylenol) 650 mg PRN Q6HRS PRN PO PAIN / TEMP Last administered on 08/24/16 13:04; Start 07/22/16 at 15:30 Divalproex Sodium (Depakote Sprinkles) 375 mg BID PO Last administered on 08:58; Start 07/22/16 at 21:00; Stop 08/04/16 at 17:56; Status DC Melatonin 6 mg QHS PO Last administered on 08/28/16 19:30; Start 07/22/16 at 21:00 Risperidone (Risperdal) 0.25 mg QID PO Last administered on 08/29/16 13:04; Start 07/24/16 at 21:00 Lorazepam (Ativan) 1 mg DAILY IM ; Start 07/27/16 at 09:00; Stop 07/27/16 at 09: 00; Status DC Lorazepam (Ativan) 1 mg 14 IM Last administered on 07/28/16 13:47; Start 07/26 at 15:00; Stop 07/29/16 at 14:13; Status DC Haloperidol Lactate (Haldol) 5 mg 1X ONCE IM Last administered on 07/27/16 16 :15; Start 07/27/16 at 16:15; Stop 07/27/16 at 16:16; Status DC Haloperidol Lactate (Haldol) 5 mg 14 IM Last administered on 07/28/16 13:46; Start 07/28/16 at 14:00; Stop 07/29/16 at 14:13; Status DC Buspirone HCl (Buspar) 10 mg TID PO Last administered on 08/04/16 08:58; Start 07/27/16 at 21:00; Stop 08/04/16 at 17:56; Status DC Trazodone HCl (Desyrel) 12.5 mg TIDWMEALS PO Last administered on 08/03/16 11: 58; Start 07/28/16 at 08:00; Stop 08/03/16 at 13:40; Status DC Fosfomycin Tromethamine (Monurol) 3 gm 1X ONCE PO Last administered on 06:27; Start 07/29/16 at 06:30; Stop 07/29/16 at 06:32; Status DC Trazodone HCl (Desyrel) 25 mg TIDWMEALS PO Last administered on 08/06/16 07:54 ; Start 08/03/16 at 17:00; Stop 08/06/16 at 11:24; Status DC Buspirone HCl (Buspar) 10 mg QID PO Last administered on 08/29/16 13:04; Start 08/04/16 at 21:00 Haloperidol Lactate (Haldol) 5 mg AFTRNOON IM Last administered on 08/17/16 13: 36; Start 08/05/16 at 13:15; Stop 08/19/16 at 18:30; Status DC Lorazepam (Ativan) 0.5 mg AFTRNOON IM Last administered on 08/17/16 13:36; Start 08/05/16 at 13:15; Stop 08/19/16 at 18:30; Status DC Oxcarbazepine (Trileptal) 300 mg BID PO Last administered on 08/11/16 09:48; Start 08/06/16 at 21:00; Stop 08/11/16 at 18:43; Status DC Trazodone HCl (Desyrel) 50 mg BID PO Last administered on 08/29/16 07:43; Start 08/06/16 at 21:00 Trazodone HCl (Desyrel) 50 mg 14 PO Last administered on 08/29/16 13:04; Start 08/06/16 at 14:00 Temazepam (Restoril) 15 mg PRN QHS PRN PO INSOMNIA Last administered on 19:39; Start 08/09/16 at 18:30 Oxcarbazepine (Trileptal) 300 mg TID PO Last administered on 08/29/16 13:04; Start 08/11/16 at 21:00 Haloperidol Decanoate (Haldol Decanoate Im Extended Release) 100 mg QMONTH IM Last administered on 08/13/16 21:04; Start 08/13/16 at 21:00 Haloperidol Lactate (Haldol) 5 mg QODAY IM Last administered on 08/28/16 07:47 ; Start 08/20/16 at 13:00 Lorazepam (Ativan) 0.5 mg QODAY IM Last administered on 08/28/16 07:47; Start 08/20/16 at 13:00 Nicotine (Nicoderm Cq 14mg) 1 patch DAILY TD Last administered on 08/29/16 07: 44; Start 08/28/16 at 09:00; Stop 09/04/16 at 08:59 Nicotine (Nicoderm Cq 7mg) 1 patch DAILY TD ; Start 09/04/16 at 09:00; Stop 09/11 at 08:59 Active Scripts Active Lisinopril 20 Mg Tablet 1 Tab PO DAILY NICODERM CQ 21mg (Nicotine) 1 Each Patch.td24 1 Patch TP DAILY Lorazepam 0.5 Mg Tablet 1 Tab PO Q4HRS PRN Hydroxyzine Hcl 25 Mg Tablet 1 Tab PO Q6HRS PRN Benadryl (Diphenhydramine Hcl) 25 Mg Capsule 1 Cap PO Q6HRS Diagnosis: Problems: (1) Anxiety disorder (2) Impulse control disorder (3) Dementia, vascular, with delusions (4) Dementia, vascular, with depression (5) Dementia in Alzheimer's disease with delusions (6) Dementia in Alzheimer's disease with depression CAITLYN BHATT MD August 29, 2016 20:43
--- NOTE | 2016-08-29 21:48 | NUR ---
Behavior Intervention Response and Plan: BIRP Note: Behavior: Assumed Care of patient, patient located in Day Room at shift change. Patient exhibited the following behavior Disorganized, Able to Focus on Task, Defensive. Brief assessment on rounds of vital signs, medication needs, lab studies, and pain. Treatment plan problems:1-2 Intervention: Patient assessed and the following interventions initiated safety checks 15 Minute Checks Cognitive Assessment , Medications , Head to toe Assessment. Response: After interactions and interventions patient responded in the following manner, Interactive , Cooperative ,Disorganized. Continue to assess behaviors and condition will continue to monitor throughout the shift as needed. Plan: Continue to monitor Master Treatment Plan for patient's progress toward short term goals of Decreased Anxiety, Medication Compliance, half-way goals to return to previous living setting vs placement. Continue to assess patient for changes in above assessment. Monitor for medication needs, pain, and safety concerns. Hourly rounding performed to ensure safe environment.
[2016-08-30 06:26] VITALS: BP 142/86
[2016-08-30] MEDS: NICOTINE 14MG PATCH. TD SCH (07:42)
[2016-08-30] MEDS: CITALOPRAM 10 MG TABLET. PO SCH (07:42)
[2016-08-30] MEDS: DOCUSATE CALCIUM 240 MG CAPSULE PO SCH (07:42)
[2016-08-30] MEDS: busPIRone 10 MG TABLET. PO SCH ×4 (07:42→17:53)
[2016-08-30] MEDS: traZODone 50 MG TABLET. PO SCH ×3 (07:42→17:54)
[2016-08-30] MEDS: risperiDONE 0.25 MG TABLET. PO SCH ×4 (07:42→17:54)
[2016-08-30] MEDS: LISINOPRIL 20 MG TABLET PO SCH (07:43)
[2016-08-30] MEDS: LORazepam 2 MG/ML VIAL IM SCH (07:44)
[2016-08-30] MEDS: HALOPERIDOL LACT 5 MG/ML VIAL. IM SCH (07:45)
--- NOTE | 2016-08-30 10:56 | NUR ---
Behavior Intervention Response and Plan: BIRP Note: Behavior: Assumed Care of patient, patient located in Dining Room at shift change. Patient exhibited the following behavior Disorganized, Calm, . Brief assessment on rounds of vital signs, medication needs, lab studies, and pain. Treatment plan problems . Intervention: Patient assessed and the following interventions initiated safety checks 15 Minute Checks Cognitive Assessment , Head to toe Assessment , Medications. Response: After interactions and interventions patient responded in the following manner, Compliant , Disorganized ,Drowsy. Continue to assess behaviors and condition will continue to monitor throughout the shift as needed. Plan: Continue to monitor Master Treatment Plan for patient's progress toward short term goals of Decreased Agitation, Decreased Aggression, intermediate goals to return to previous living setting vs placement. Continue to assess patient for changes in above assessment. Monitor for medication needs, pain, and safety concerns. Hourly rounding performed to ensure safe environment.
[2016-08-30] MEDS: CHOLECALCIFEROL (VITAMIN D3) 1,000 UNIT TABLET PO SCH ×2 (11:49→15:22)
[2016-08-30 16:01] VITALS: BP 140/87
--- NOTE | 2016-08-30 16:32 | NUR ---
pt up adl in halls. exit seeking at times. redirectABLE. COMPLIANT WITH MEDS. PRN UTILIZED IN AFTERNOON. PT PERSEVERATING on looking for purse and keys.
[2016-08-30] MEDS: traZODone 100 MG TABLET. PO SCH (17:54)
[2016-08-30] MEDS: MIRTAZAPINE 15 MG TABLET PO SCH (17:54)
[2016-08-30] MEDS: MELATONIN 3 MG TABLET PO SCH (17:54)
--- NOTE | 2016-08-30 19:37 | PDOC ---
Exam Yaya Demential Exam: Yaya Note: Please also refer to the separate dictated note~for this date of service dictated separately.~Patient seen individually. Discussed the patient with Nursing staff reviewed the chart.~Reviewed interim history and current functioning. Reviewed vital signs,~Labs/ Radiology~and current medications noted below. Continue current treatment with the changes noted in the dictated addendum note Assessment: Vital Signs: Vital Signs Date Time Temp Pulse Resp B/P (MAP) Pulse Ox O2 Delivery O2 Flow Rate FiO2 08/30/16 16:01 97.2 65 18 140/87 (104) 96 08/24/16 16:03 Room Air I&O Intake and Output 08/30/16 07:00 Intake Total 570 ml Balance 570 ml Intake Oral 570 ml # Bowel Movements 1 Current Medications: Meds: Current Medications Diphenhydramine HCl (Benadryl) 25 mg Q6HRS PO ; Start 07/01/16 at 18:00; Stop at 18:00; Status DC Hydroxyzine HCl (Atarax) 25 mg PRN Q6HRS PRN PO ITCHING Last administered on 01:19; Start 07/01/16 at 15:15; Stop 07/06/16 at 04:21; Status DC Lisinopril (Prinivil) 20 mg DAILY PO Last administered on 08/30/16 07:43; Start 07/02/16 at 09:00 Lorazepam (Ativan) 0.5 mg PRN Q4HRS PRN PO ANXIETY / AGITATION Last administered on 07/02/16 21:07; Start 07/01/16 at 15:15; Stop 07/02/16 at 21:44 ; Status DC Nicotine (Nicoderm Cq 21mg) 1 patch DAILY TD Last administered on 08/27/16 08: 33; Start 07/02/16 at 09:00; Stop 08/27/16 at 13:53; Status DC Lorazepam (Ativan) 0.5 mg PRN Q4HRS PRN IV ANXIETY / AGITATION; Start 07/01/16 at 15:15; Stop 07/01/16 at 19:14; Status DC Diphenhydramine HCl (Benadryl) 25 mg PRN Q6HRS PRN IVP ITCHING; Start 07/01/16 at 15:15; Stop 07/01/16 at 19:14; Status DC Haloperidol Lactate (Haldol) 5 mg PRN Q6HRS PRN IM AGITATION; Start 07/01/16 at 15:15; Stop 07/01/16 at 19:14; Status DC Diphenhydramine HCl (Benadryl) 25 mg PRN Q6HRS PRN PO ITCHING Last administered on 07/01/16 20:56; Start 07/01/16 at 18:00 Acetaminophen/ Hydrocodone Bitart (Lortab 5/325) 1 tab PRN BID PRN PO PAIN Last administered on 08/06/16 13:12; Start 07/02/16 at 21:45 Olanzapine (Zyprexa Zydis) 2.5 mg PRN Q2HR PRN PO PSYCHOSIS Last administered on 08/30/16 15:04; Start 07/02/16 at 21:45 Mirtazapine (Remeron) 15 mg QHS PO Last administered on 08/30/16 17:54; Start 07/03/16 at 21:00 Citalopram Hydrobromide (Celexa) 10 mg DAILY PO Last administered on 08/30/16 07:42; Start 07/03/16 at 09:00 Risperidone (Risperdal) 0.25 mg BID PO Last administered on 07/10/16 08:54; Start 07/03/16 at 21:00; Stop 07/10/16 at 15:18; Status DC Docusate Calcium (Surfak) 240 mg DAILY PO Last administered on 08/30/16 07:42 ; Start 07/04/16 at 21:00 Magnesium Hydroxide (Milk Of Magnesia) 2,400 mg PRN QHS PRN PO CONSTIPATION Last administered on 08/30/16 17:06; Start 07/04/16 at 18:15 Trazodone HCl (Desyrel) 50 mg QHS PO Last administered on 07/14/16 20:10; Start 07/05/16 at 21:00; Stop 07/15/16 at 13:52; Status DC Trazodone HCl (Desyrel) 50 mg PRN QHS PRN PO INSOMNIA Last administered on 21:27; Start 07/05/16 at 20:45; Stop 07/15/16 at 13:52; Status DC Hydroxyzine HCl (Atarax) 50 mg PRN Q2HR PRN PO Psychosis Last administered on 16:56; Start 07/06/16 at 04:30 Fentanyl (Duragesic 12mcg/ Hr) 1 patch Q3DAYS TD Last administered on 07:47; Start 07/08/16 at 18:30 Risperidone (Risperdal) 0.25 mg TID PO Last administered on 07/24/16 13:20; Start 07/10/16 at 21:00; Stop 07/24/16 at 18:29; Status DC Buspirone HCl (Buspar) 5 mg TID PO Last administered on 07/13/16 12:28; Start 07/10/16 at 21:00; Stop 07/13/16 at 15:32; Status DC Buspirone HCl (Buspar) 10 mg BID PO Last administered on 07/27/16 09:32; Start 07/13/16 at 21:00; Stop 07/27/16 at 18:29; Status DC Divalproex Sodium (Depakote Sprinkles) 125 mg BID PO Last administered on 07:46; Start 07/13/16 at 21:00; Stop 07/19/16 at 11:49; Status DC Vitamin D (Vitamin D3) 2,000 unit BIDPCLD PO Last administered on 08/30/16 15: 22; Start 07/14/16 at 12:30 Trazodone HCl (Desyrel) 100 mg QHS PO Last administered on 08/30/16 17:54; Start 07/15/16 at 21:00 Trazodone HCl (Desyrel) 100 mg PRN QHS PO ; Start 07/15/16 at 13:45; Stop at 23:01; Status DC Trazodone HCl (Desyrel) 100 mg PRN QHS PRN PO INSOMNIA Last administered on 00:53; Start 07/15/16 at 23:00 Quetiapine Fumarate (SEROquel) 50 mg 1X ONCE PO Last administered on 07/16/16 00:44; Start 07/16/16 at 00:30; Stop 07/16/16 at 00:31; Status DC Temazepam (Restoril) 30 mg PRN QHS PRN PO INSOMNIA Last administered on 19:04; Start 07/16/16 at 18:30; Stop 08/09/16 at 18:24; Status DC Divalproex Sodium (Depakote Sprinkles) 250 mg BID PO Last administered on 12:20; Start 07/19/16 at 21:00; Stop 07/22/16 at 18:23; Status DC Acetaminophen (Tylenol) 650 mg PRN Q6HRS PRN PO PAIN / TEMP Last administered on 08/24/16 13:04; Start 07/22/16 at 15:30 Divalproex Sodium (Depakote Sprinkles) 375 mg BID PO Last administered on 08:58; Start 07/22/16 at 21:00; Stop 08/04/16 at 17:56; Status DC Melatonin 6 mg QHS PO Last administered on 08/30/16 17:54; Start 07/22/16 at 21:00 Risperidone (Risperdal) 0.25 mg QID PO Last administered on 08/30/16 17:54; Start 07/24/16 at 21:00 Lorazepam (Ativan) 1 mg DAILY IM ; Start 07/27/16 at 09:00; Stop 07/27/16 at 09: 00; Status DC Lorazepam (Ativan) 1 mg 14 IM Last administered on 07/28/16 13:47; Start 07/26 at 15:00; Stop 07/29/16 at 14:13; Status DC Haloperidol Lactate (Haldol) 5 mg 1X ONCE IM Last administered on 07/27/16 16 :15; Start 07/27/16 at 16:15; Stop 07/27/16 at 16:16; Status DC Haloperidol Lactate (Haldol) 5 mg 14 IM Last administered on 07/28/16 13:46; Start 07/28/16 at 14:00; Stop 07/29/16 at 14:13; Status DC Buspirone HCl (Buspar) 10 mg TID PO Last administered on 08/04/16 08:58; Start 07/27/16 at 21:00; Stop 08/04/16 at 17:56; Status DC Trazodone HCl (Desyrel) 12.5 mg TIDWMEALS PO Last administered on 08/03/16 11: 58; Start 07/28/16 at 08:00; Stop 08/03/16 at 13:40; Status DC Fosfomycin Tromethamine (Monurol) 3 gm 1X ONCE PO Last administered on 06:27; Start 07/29/16 at 06:30; Stop 07/29/16 at 06:32; Status DC Trazodone HCl (Desyrel) 25 mg TIDWMEALS PO Last administered on 08/06/16 07:54 ; Start 08/03/16 at 17:00; Stop 08/06/16 at 11:24; Status DC Buspirone HCl (Buspar) 10 mg QID PO Last administered on 08/30/16 17:53; Start 08/04/16 at 21:00 Haloperidol Lactate (Haldol) 5 mg AFTRNOON IM Last administered on 08/17/16 13: 36; Start 08/05/16 at 13:15; Stop 08/19/16 at 18:30; Status DC Lorazepam (Ativan) 0.5 mg AFTRNOON IM Last administered on 08/17/16 13:36; Start 08/05/16 at 13:15; Stop 08/19/16 at 18:30; Status DC Oxcarbazepine (Trileptal) 300 mg BID PO Last administered on 08/11/16 09:48; Start 08/06/16 at 21:00; Stop 08/11/16 at 18:43; Status DC Trazodone HCl (Desyrel) 50 mg BID PO Last administered on 08/30/16 17:54; Start 08/06/16 at 21:00 Trazodone HCl (Desyrel) 50 mg 14 PO Last administered on 08/30/16 11:50; Start 08/06/16 at 14:00 Temazepam (Restoril) 15 mg PRN QHS PRN PO INSOMNIA Last administered on 19:39; Start 08/09/16 at 18:30 Oxcarbazepine (Trileptal) 300 mg TID PO Last administered on 08/30/16 17:54; Start 08/11/16 at 21:00 Haloperidol Decanoate (Haldol Decanoate Im Extended Release) 100 mg QMONTH IM Last administered on 08/13/16 21:04; Start 08/13/16 at 21:00 Haloperidol Lactate (Haldol) 5 mg QODAY IM Last administered on 08/30/16 07:45 ; Start 08/20/16 at 13:00 Lorazepam (Ativan) 0.5 mg QODAY IM Last administered on 08/30/16 07:44; Start 08/20/16 at 13:00 Nicotine (Nicoderm Cq 14mg) 1 patch DAILY TD Last administered on 08/30/16 07: 42; Start 08/28/16 at 09:00; Stop 09/04/16 at 08:59 Nicotine (Nicoderm Cq 7mg) 1 patch DAILY TD ; Start 09/04/16 at 09:00; Stop 09/11 at 08:59 Active Scripts Active Lisinopril 20 Mg Tablet 1 Tab PO DAILY NICODERM CQ 21mg (Nicotine) 1 Each Patch.td24 1 Patch TP DAILY Lorazepam 0.5 Mg Tablet 1 Tab PO Q4HRS PRN Hydroxyzine Hcl 25 Mg Tablet 1 Tab PO Q6HRS PRN Benadryl (Diphenhydramine Hcl) 25 Mg Capsule 1 Cap PO Q6HRS CAITLYN BHATT MD August 30, 2016 19:37
--- NOTE | 2016-08-30 21:58 | NUR ---
Behavior Intervention Response and Plan: BIRP Note: Behavior: Assumed Care of patient, patient located in Hallway at shift change. Patient exhibited the following behavior Disorganized, Able to Focus on Task, Drowsy. Brief assessment on rounds of vital signs, medication needs, lab studies, and pain. Treatment plan problems :1-2 Intervention: Patient assessed and the following interventions initiated safety checks 15 Minute Checks Cognitive Assessment , Head to toe Assessment , Medications. Response: After interactions and interventions patient responded in the following manner, Calm , Disorganized ,Compliant. Continue to assess behaviors and condition will continue to monitor throughout the shift as needed. Plan: Continue to monitor Master Treatment Plan for patient's progress toward short term goals of Decreased Agitation, Medication Compliance, intermediate designer goals to return to previous living setting vs placement. Continue to assess patient for changes in above assessment. Monitor for medication needs, pain, and safety concerns. Hourly rounding performed to ensure safe environment.
[2016-08-31 06:14] VITALS: BP 141/83
--- NOTE | 2016-08-31 06:49 | ACF ---
Admission Criteria Forms PSYCHIATRIC DISORDERS Clinical Indications for Inpatient Care (Place 'X' for any and all applicable criteria): Ongoing inpatient care may be needed for ANY ONE of the following(1)(2)(3)(4)(6) (7)(8): [ ]I. Danger to self or others not manageable at lower level of care. [ ]II. Grave disability (eg, inability to perform self care necessary at lower level of care) [ ]III. Agitation or inappropriate behavior interfering with care for primary condition (eg, attempting to discontinue lines or drains prematurely, unable to cooperate with respiratory care) [X]IV. Severe disability or disorder indicated by ALL of the following: [X]a) Severe behavioral health disorder-related symptoms or condition indicated by ANY ONE of the following: [ ]i) Severe problem with cognition, memory, judgment, or impulse control [X]ii) Severe clinical manifestations (eg, hallucinations, delusions, other acute psychotic symptoms, lidya, extreme agitation or anxiety) [X]b) Patient management at lower level of care is not feasible until acute intervention or modification is initiated. Extended stay beyond goal length of stay for the primary condition may be indicated when ANY ONE of the following is present: (1)(2)(3)(4): [ ]a) Patient is a danger to self or others and not manageable at lower level of care. [ ]b) Behavior crisis management, including physical or chemical restraints, is required and is not available at a lower level of care. [ ]c) Behavioral symptoms (e.g., agitation, somnolence, inappropriate behavior) are present, and are not manageable at a lower level of care. [ ]d) Patient cannot understand follow-up treatment and crisis plan. [ ]e) Provider and supports are not sufficiently available at lower level of care. [ ]f) Patient cannot participate (e.g., verify absence of plan for harm) and is in needed of monitoring. The original [facility] [employer] content created by [facility] [employer] has been revised. The portions of the content which have been revised are identified through the use of italic text or in bold, and [facility] has neither reviewed nor approved the modified material. All other unmodified content is copyright [facility] [employer] [facility] [employer]. Please see references footnoted in the original [facility] edition 2016 Admission Criteria Met?: Yes CANDIE JACOB August 31, 2016 06:49
[2016-08-31] MEDS: DOCUSATE CALCIUM 240 MG CAPSULE PO SCH (07:44)
[2016-08-31] MEDS: LISINOPRIL 20 MG TABLET PO SCH (07:44)
[2016-08-31] MEDS: CITALOPRAM 10 MG TABLET. PO SCH (07:44)
[2016-08-31] MEDS: busPIRone 10 MG TABLET. PO SCH ×4 (07:44→19:35)
[2016-08-31] MEDS: risperiDONE 0.25 MG TABLET. PO SCH ×4 (07:45→19:35)
[2016-08-31] MEDS: traZODone 50 MG TABLET. PO SCH ×3 (07:45→19:43)
[2016-08-31] MEDS: NICOTINE 14MG PATCH. TD SCH (07:46)
[2016-08-31] MEDS: fentaNYL 12MCG/HR 1 PATCH PATCH TD SCH (07:47)
--- NOTE | 2016-08-31 10:31 | NUR ---
Group Note [facility] Group Type UNGAME Start Time: 09:40 End Time: 10:20 Problem: Depression Purpose: Increase Stimulation, Increase socialization, express thoughts/feelings Level of Participation: Low Behaviors or Symptoms Observed: Pts sat within group and answered questions from the UNGAME and shared experiences and thoughts and feelings around questions that were asked. Interventions: Directed Focus Plan: group Additional Comments: Aliya started with the group she would answer questions as asked, however would fall asleep, Aliya left during group for a shower.
--- NOTE | 2016-08-31 10:47 | PN ---
DATE: 08/29/2016 PSYCHIATRIC PROGRESS NOTE This is late entry of 08/29/2016, covers elements not covered in my initial note. SUBJECTIVE: Per nursing report, the patient has been exit seeking more so in the afternoon, received Zyprexa Zydis x 1 p.r.n. She is wandering off and talking in Arabic and this is what precedes before she gets extremely psychotic. However, she was not aggressive, which is an improvement. REVIEW OF SYSTEMS: No CV, , pulmonary, eye, ENT system symptoms on review. Reliability poor. MENTAL STATUS EXAMINATION: Oriented to herself. Insight, judgment, recent and remote memory, attention, concentration, fund of knowledge poor, consistent with her diagnosis mentioned in my initial note. PLAN: Continue psychotropics mentioned in my initial note including the IM Haldol, Ativan every 2 days, reduce this further down to every 3 days in a day or so. CAITLYN BHATT MD DR: ALICIA/shanon JOB#: [id number] / [id number]
--- NOTE | 2016-08-31 10:50 | PN ---
DATE: 08/30/2016 PSYCHIATRIC PROGRESS NOTE This is late entry of 08/30/2016, covers elements not covered in my initial note. SUBJECTIVE: The patient received Zyprexa Zydis x 1 per nursing report for her agitation and irritability. She has been compliant with medications, confused. REVIEW OF SYSTEMS: No CV, , pulmonary, eye, ENT system symptoms on review. MENTAL STATUS EXAMINATION: Oriented to herself. Insight, judgment, recent and remote memory, attention, concentration, fund of knowledge poor, consistent with her diagnosis mentioned in my initial note. PLAN: Change the IM Haldol, Ativan to every 3 days, maintain rest of the psychotropics mentioned in my initial note. MAN Quinten BHATT MD DR: ALICIA/shanon JOB#: [id number] / [id number]
--- NOTE | 2016-08-31 11:25 | NUR ---
THERAPEUTIC RECREATION GROUP NOTE TITLE :Movement to Music: Flexibility ACTIVITY : Movement/ Exercise GOAL : Increase morale, attention, flexibility. Decrease stress/anxiety. DURATION : 30 Minutes RESPONSE : Moderate participation. Pt. needed prompting and encouragement and was agreeable. She closed her eyes a few times.
--- NOTE | 2016-08-31 11:41 | NUR ---
SW faxed information to [place], [facility], [place], and [place] for possible admission.
[2016-08-31] MEDS: CHOLECALCIFEROL (VITAMIN D3) 1,000 UNIT TABLET PO SCH ×2 (11:42→17:18)
--- NOTE | 2016-08-31 14:45 | NUR ---
THERAPEUTIC RECREATION GROUP NOTE TITLE :Coffee Filter Poppy Hernandes ACTIVITY : Arts and Crafts GOAL : Increase socialization, fine motor skills, creativity DURATION : 105 Minutes RESPONSE : Minimal participation. Pt. started the group and wrote on the coffee filter instead of coloring it. She wrote quietly and got up and left the group about 15 minutes into it. She never returned.
--- NOTE | 2016-08-31 16:00 | NUR ---
pt up adl in halls. to meals. appetite fair. compliant with meds. redirectable.
[2016-08-31 16:43] VITALS: BP 156/85
[2016-08-31] MEDS: MELATONIN 3 MG TABLET PO SCH (19:35)
[2016-08-31] MEDS: MIRTAZAPINE 15 MG TABLET PO SCH (19:35)
[2016-08-31] MEDS: traZODone 100 MG TABLET. PO SCH (19:43)
--- NOTE | 2016-08-31 19:51 | PDOC ---
Exam Yaya Demential Exam: Yaya Note: Please also refer to the separate dictated note~for this date of service dictated separately.~Patient seen individually. Discussed the patient with Nursing staff reviewed the chart.~Reviewed interim history and current functioning. Reviewed vital signs,~Labs/ Radiology~and current medications noted below. Continue current treatment with the changes noted in the dictated addendum note Assessment: Vital Signs: Vital Signs Date Time Temp Pulse Resp B/P (MAP) Pulse Ox O2 Delivery O2 Flow Rate FiO2 08/31/16 16:43 98.1 62 18 156/85 (108) 97 Room Air I&O Intake and Output 08/31/16 07:00 Intake Total 1440 ml Balance 1440 ml Intake Oral 1440 ml # Voids 2 # Bowel Movements 2 Current Medications: Meds: Current Medications Diphenhydramine HCl (Benadryl) 25 mg Q6HRS PO ; Start 07/01/16 at 18:00; Stop at 18:00; Status DC Hydroxyzine HCl (Atarax) 25 mg PRN Q6HRS PRN PO ITCHING Last administered on 01:19; Start 07/01/16 at 15:15; Stop 07/06/16 at 04:21; Status DC Lisinopril (Prinivil) 20 mg DAILY PO Last administered on 08/31/16 07:44; Start 07/02/16 at 09:00 Lorazepam (Ativan) 0.5 mg PRN Q4HRS PRN PO ANXIETY / AGITATION Last administered on 07/02/16 21:07; Start 07/01/16 at 15:15; Stop 07/02/16 at 21:44 ; Status DC Nicotine (Nicoderm Cq 21mg) 1 patch DAILY TD Last administered on 08/27/16 08: 33; Start 07/02/16 at 09:00; Stop 08/27/16 at 13:53; Status DC Lorazepam (Ativan) 0.5 mg PRN Q4HRS PRN IV ANXIETY / AGITATION; Start 07/01/16 at 15:15; Stop 07/01/16 at 19:14; Status DC Diphenhydramine HCl (Benadryl) 25 mg PRN Q6HRS PRN IVP ITCHING; Start 07/01/16 at 15:15; Stop 07/01/16 at 19:14; Status DC Haloperidol Lactate (Haldol) 5 mg PRN Q6HRS PRN IM AGITATION; Start 07/01/16 at 15:15; Stop 07/01/16 at 19:14; Status DC Diphenhydramine HCl (Benadryl) 25 mg PRN Q6HRS PRN PO ITCHING Last administered on 07/01/16 20:56; Start 07/01/16 at 18:00 Acetaminophen/ Hydrocodone Bitart (Lortab 5/325) 1 tab PRN BID PRN PO PAIN Last administered on 08/06/16 13:12; Start 07/02/16 at 21:45 Olanzapine (Zyprexa Zydis) 2.5 mg PRN Q2HR PRN PO PSYCHOSIS Last administered on 08/30/16 15:04; Start 07/02/16 at 21:45 Mirtazapine (Remeron) 15 mg QHS PO Last administered on 08/31/16 19:35; Start 07/03/16 at 21:00 Citalopram Hydrobromide (Celexa) 10 mg DAILY PO Last administered on 08/31/16 07:44; Start 07/03/16 at 09:00 Risperidone (Risperdal) 0.25 mg BID PO Last administered on 07/10/16 08:54; Start 07/03/16 at 21:00; Stop 07/10/16 at 15:18; Status DC Docusate Calcium (Surfak) 240 mg DAILY PO Last administered on 08/31/16 07:44 ; Start 07/04/16 at 21:00 Magnesium Hydroxide (Milk Of Magnesia) 2,400 mg PRN QHS PRN PO CONSTIPATION Last administered on 08/30/16 17:06; Start 07/04/16 at 18:15 Trazodone HCl (Desyrel) 50 mg QHS PO Last administered on 07/14/16 20:10; Start 07/05/16 at 21:00; Stop 07/15/16 at 13:52; Status DC Trazodone HCl (Desyrel) 50 mg PRN QHS PRN PO INSOMNIA Last administered on 21:27; Start 07/05/16 at 20:45; Stop 07/15/16 at 13:52; Status DC Hydroxyzine HCl (Atarax) 50 mg PRN Q2HR PRN PO Psychosis Last administered on 16:56; Start 07/06/16 at 04:30 Fentanyl (Duragesic 12mcg/ Hr) 1 patch Q3DAYS TD Last administered on 07:47; Start 07/08/16 at 18:30 Risperidone (Risperdal) 0.25 mg TID PO Last administered on 07/24/16 13:20; Start 07/10/16 at 21:00; Stop 07/24/16 at 18:29; Status DC Buspirone HCl (Buspar) 5 mg TID PO Last administered on 07/13/16 12:28; Start 07/10/16 at 21:00; Stop 07/13/16 at 15:32; Status DC Buspirone HCl (Buspar) 10 mg BID PO Last administered on 07/27/16 09:32; Start 07/13/16 at 21:00; Stop 07/27/16 at 18:29; Status DC Divalproex Sodium (Depakote Sprinkles) 125 mg BID PO Last administered on 07:46; Start 07/13/16 at 21:00; Stop 07/19/16 at 11:49; Status DC Vitamin D (Vitamin D3) 2,000 unit BIDPCLD PO Last administered on 08/31/16 17: 18; Start 07/14/16 at 12:30 Trazodone HCl (Desyrel) 100 mg QHS PO Last administered on 08/31/16 19:43; Start 07/15/16 at 21:00 Trazodone HCl (Desyrel) 100 mg PRN QHS PO ; Start 07/15/16 at 13:45; Stop at 23:01; Status DC Trazodone HCl (Desyrel) 100 mg PRN QHS PRN PO INSOMNIA Last administered on 00:53; Start 07/15/16 at 23:00 Quetiapine Fumarate (SEROquel) 50 mg 1X ONCE PO Last administered on 07/16/16 00:44; Start 07/16/16 at 00:30; Stop 07/16/16 at 00:31; Status DC Temazepam (Restoril) 30 mg PRN QHS PRN PO INSOMNIA Last administered on 19:04; Start 07/16/16 at 18:30; Stop 08/09/16 at 18:24; Status DC Divalproex Sodium (Depakote Sprinkles) 250 mg BID PO Last administered on 12:20; Start 07/19/16 at 21:00; Stop 07/22/16 at 18:23; Status DC Acetaminophen (Tylenol) 650 mg PRN Q6HRS PRN PO PAIN / TEMP Last administered on 08/24/16 13:04; Start 07/22/16 at 15:30 Divalproex Sodium (Depakote Sprinkles) 375 mg BID PO Last administered on 08:58; Start 07/22/16 at 21:00; Stop 08/04/16 at 17:56; Status DC Melatonin 6 mg QHS PO Last administered on 08/31/16 19:35; Start 07/22/16 at 21:00 Risperidone (Risperdal) 0.25 mg QID PO Last administered on 08/31/16 19:35; Start 07/24/16 at 21:00 Lorazepam (Ativan) 1 mg DAILY IM ; Start 07/27/16 at 09:00; Stop 07/27/16 at 09: 00; Status DC Lorazepam (Ativan) 1 mg 14 IM Last administered on 07/28/16 13:47; Start 07/26 at 15:00; Stop 07/29/16 at 14:13; Status DC Haloperidol Lactate (Haldol) 5 mg 1X ONCE IM Last administered on 07/27/16 16 :15; Start 07/27/16 at 16:15; Stop 07/27/16 at 16:16; Status DC Haloperidol Lactate (Haldol) 5 mg 14 IM Last administered on 07/28/16 13:46; Start 07/28/16 at 14:00; Stop 07/29/16 at 14:13; Status DC Buspirone HCl (Buspar) 10 mg TID PO Last administered on 08/04/16 08:58; Start 07/27/16 at 21:00; Stop 08/04/16 at 17:56; Status DC Trazodone HCl (Desyrel) 12.5 mg TIDWMEALS PO Last administered on 08/03/16 11: 58; Start 07/28/16 at 08:00; Stop 08/03/16 at 13:40; Status DC Fosfomycin Tromethamine (Monurol) 3 gm 1X ONCE PO Last administered on 06:27; Start 07/29/16 at 06:30; Stop 07/29/16 at 06:32; Status DC Trazodone HCl (Desyrel) 25 mg TIDWMEALS PO Last administered on 08/06/16 07:54 ; Start 08/03/16 at 17:00; Stop 08/06/16 at 11:24; Status DC Buspirone HCl (Buspar) 10 mg QID PO Last administered on 08/31/16 19:35; Start 08/04/16 at 21:00 Haloperidol Lactate (Haldol) 5 mg AFTRNOON IM Last administered on 08/17/16 13: 36; Start 08/05/16 at 13:15; Stop 08/19/16 at 18:30; Status DC Lorazepam (Ativan) 0.5 mg AFTRNOON IM Last administered on 08/17/16 13:36; Start 08/05/16 at 13:15; Stop 08/19/16 at 18:30; Status DC Oxcarbazepine (Trileptal) 300 mg BID PO Last administered on 08/11/16 09:48; Start 08/06/16 at 21:00; Stop 08/11/16 at 18:43; Status DC Trazodone HCl (Desyrel) 50 mg BID PO Last administered on 08/31/16 19:43; Start 08/06/16 at 21:00 Trazodone HCl (Desyrel) 50 mg 14 PO Last administered on 08/31/16 11:43; Start 08/06/16 at 14:00 Temazepam (Restoril) 15 mg PRN QHS PRN PO INSOMNIA Last administered on 19:39; Start 08/09/16 at 18:30 Oxcarbazepine (Trileptal) 300 mg TID PO Last administered on 08/31/16 19:35; Start 08/11/16 at 21:00 Haloperidol Decanoate (Haldol Decanoate Im Extended Release) 100 mg QMONTH IM Last administered on 08/13/16 21:04; Start 08/13/16 at 21:00 Haloperidol Lactate (Haldol) 5 mg QODAY IM Last administered on 08/30/16 07:45 ; Start 08/20/16 at 13:00; Stop 08/31/16 at 15:28; Status DC Lorazepam (Ativan) 0.5 mg QODAY IM Last administered on 08/30/16 07:44; Start 08/20/16 at 13:00; Stop 08/31/16 at 15:28; Status DC Nicotine (Nicoderm Cq 14mg) 1 patch DAILY TD Last administered on 08/31/16 07: 46; Start 08/28/16 at 09:00; Stop 09/04/16 at 08:59 Nicotine (Nicoderm Cq 7mg) 1 patch DAILY TD ; Start 09/04/16 at 09:00; Stop 09/11 at 08:59 Haloperidol Lactate (Haldol) 5 mg Q3DAYS IM ; Start 09/02/16 at 09:00 Lorazepam (Ativan) 0.5 mg Q3DAYS IM ; Start 09/02/16 at 09:00 Active Scripts Active Lisinopril 20 Mg Tablet 1 Tab PO DAILY NICODERM CQ 21mg (Nicotine) 1 Each Patch.td24 1 Patch TP DAILY Lorazepam 0.5 Mg Tablet 1 Tab PO Q4HRS PRN Hydroxyzine Hcl 25 Mg Tablet 1 Tab PO Q6HRS PRN Benadryl (Diphenhydramine Hcl) 25 Mg Capsule 1 Cap PO Q6HRS CAITLYN BHATT MD August 31, 2016 19:51
[2016-08-31] MEDS: traZODone 100 MG TABLET. PO PRN (22:12)
--- NOTE | 2016-09-01 01:41 | NUR ---
Behavior Intervention Response and Plan: BIRP Note: Behavior: Assumed Care of patient, patient located in Hallway at shift change. Patient exhibited the following behavior Wandering, Calm, Disorganized. Brief assessment on rounds of vital signs, medication needs, lab studies, and pain. Treatment plan problems Dementia W BD, Altered Mental Status, and Fall Risk. Intervention: Patient assessed and the following interventions initiated safety checks 15 Minute Checks Cognitive Assessment , Medications , Nutrition. Response: After interactions and interventions patient responded in the following manner, Wandering , Calm ,Compliant. Continue to assess behaviors and condition will continue to monitor throughout the shift as needed. Plan: Continue to monitor Master Treatment Plan for patient's progress toward short term goals of Decreased Agitation, Medication Compliance, care home goals to return to previous living setting vs placement. Continue to assess patient for changes in above assessment. Monitor for medication needs, pain, and safety concerns. Hourly rounding performed to ensure safe environment.
[2016-09-01 05:58] VITALS: BP 128/75
--- NOTE | 2016-09-01 06:43 | PN ---
DATE: 08/28/2016 SUBJECTIVE: This is a late entry 08/28/2016, covers elements not covered in my initial note. Overall, the patient got her IM Ativan, Haldol, and some Zyprexa x 1 because she was getting agitated at night and then went back to bed. REVIEW OF SYSTEMS: No CV, , pulmonary, eye, or ENT system symptoms on review. Reliability poor. MENTAL STATUS EXAM: Oriented to herself. Insight, judgment, recent and remote memory, attention, concentration, fund of knowledge poor, consistent with her diagnosis mentioned in my initial note. PLAN: Continue current psychotropics. May reduce the frequency of IM Haldol and Ativan depending on her progress. MAN Quinten BHATT MD DR: ALICIA/shanon JOB#: [id number] / [id number]
[2016-09-01] MEDS: DOCUSATE CALCIUM 240 MG CAPSULE PO SCH (08:33)
[2016-09-01] MEDS: busPIRone 10 MG TABLET. PO SCH ×4 (08:33→19:19)
[2016-09-01] MEDS: CITALOPRAM 10 MG TABLET. PO SCH (08:33)
[2016-09-01] MEDS: risperiDONE 0.25 MG TABLET. PO SCH ×4 (08:33→19:19)
[2016-09-01] MEDS: traZODone 50 MG TABLET. PO SCH ×3 (08:33→19:19)
[2016-09-01] MEDS: LISINOPRIL 20 MG TABLET PO SCH (08:33)
[2016-09-01] MEDS: NICOTINE 14MG PATCH. TD SCH (08:34)
[2016-09-01] MEDS: CHOLECALCIFEROL (VITAMIN D3) 1,000 UNIT TABLET PO SCH ×2 (12:47→17:25)
--- NOTE | 2016-09-01 14:00 | NUR ---
Behavior Intervention Response and Plan: BIRP Note: Behavior: Assumed Care of patient, patient located in Hallway at shift change. Patient exhibited the following behavior Calm, Disorganized, Cooperative. Brief assessment on rounds of vital signs, medication needs, lab studies, and pain. Treatment plan problems . Intervention: Patient assessed and the following interventions initiated safety checks 15 Minute Checks Call amaya in reach , Medications , Medications. Response: After interactions and interventions patient responded in the following manner, Calm , Disorganized ,Compliant. Continue to assess behaviors and condition will continue to monitor throughout the shift as needed. Plan: Continue to monitor Master Treatment Plan for patient's progress toward short term goals of Decreased Agitation, Decreased Anxiety, halfway goals to return to previous living setting vs placement. Continue to assess patient for changes in above assessment. Monitor for medication needs, pain, and safety concerns. Hourly rounding performed to ensure safe environment.
--- NOTE | 2016-09-01 14:00 | NUR ---
THERAPEUTIC RECREATION GROUP NOTE TITLE :Dance and Sing along with Daria-Patriotic Songs/ Poppy Recognition ACTIVITY : Music GOAL : Increase socialization, elevate mood, stimulate memory DURATION : 60 Minutes RESPONSE : Minimal participation. Pt. wandered around, leaving and returning to the group several times. She tapped her foot along with the music when she was in the group.
--- NOTE | 2016-09-01 16:06 | NUR ---
Group Note [facility] Group Type "What is your Shell" Start Time: 9:30 End Time: 10:50 Problem: Anxiety Purpose: Express Feelings, Increase socialization, Increase self awareness Level of Participation: absent Group: In observation of National turtle awareness day, Pts discussed facts about turtle, then directed to talk about qualities a turtle has such as "non-assertive",what "non assertive" looks like. Why a turtle has a shell- related the turtles shell to what each pts "shell" looks like. While discussing this pts colored and put together their own turtle. Interventions: Directed Focus, Clarification Plan: Group Participation, higher level Additional Comments:
[2016-09-01 16:17] VITALS: BP 143/74
[2016-09-01] MEDS: MIRTAZAPINE 15 MG TABLET PO SCH (19:19)
[2016-09-01] MEDS: traZODone 100 MG TABLET. PO SCH (19:19)
[2016-09-01] MEDS: MELATONIN 3 MG TABLET PO SCH (19:19)
[2016-09-01] MEDS: traZODone 100 MG TABLET. PO PRN (19:23)
--- NOTE | 2016-09-01 19:23 | NUR ---
Nursing Note Patient given PRN Trazodone for insomnia per PRN order.
--- NOTE | 2016-09-01 20:59 | PDOC ---
Exam Yaya Demential Exam: Yaya Note: Please also refer to the separate dictated note~for this date of service dictated separately.~Patient seen individually. Discussed the patient with Nursing staff reviewed the chart.~Reviewed interim history and current functioning. Reviewed vital signs,~Labs/ Radiology~and current medications noted below. Continue current treatment with the changes noted in the dictated addendum note Assessment: Vital Signs: Vital Signs Date Time Temp Pulse Resp B/P (MAP) Pulse Ox O2 Delivery O2 Flow Rate FiO2 09/01/16 16:17 97.2 74 18 143/74 (97) 95 08/31/16 16:43 Room Air I&O Intake and Output 09/01/16 07:00 Intake Total 840 ml Balance 840 ml Intake Oral 840 ml Current Medications: Meds: Current Medications Diphenhydramine HCl (Benadryl) 25 mg Q6HRS PO ; Start 07/01/16 at 18:00; Stop at 18:00; Status DC Hydroxyzine HCl (Atarax) 25 mg PRN Q6HRS PRN PO ITCHING Last administered on 01:19; Start 07/01/16 at 15:15; Stop 07/06/16 at 04:21; Status DC Lisinopril (Prinivil) 20 mg DAILY PO Last administered on 09/01/16 08:33; Start 07/02/16 at 09:00 Lorazepam (Ativan) 0.5 mg PRN Q4HRS PRN PO ANXIETY / AGITATION Last administered on 07/02/16 21:07; Start 07/01/16 at 15:15; Stop 07/02/16 at 21:44 ; Status DC Nicotine (Nicoderm Cq 21mg) 1 patch DAILY TD Last administered on 08/27/16 08: 33; Start 07/02/16 at 09:00; Stop 08/27/16 at 13:53; Status DC Lorazepam (Ativan) 0.5 mg PRN Q4HRS PRN IV ANXIETY / AGITATION; Start 07/01/16 at 15:15; Stop 07/01/16 at 19:14; Status DC Diphenhydramine HCl (Benadryl) 25 mg PRN Q6HRS PRN IVP ITCHING; Start 07/01/16 at 15:15; Stop 07/01/16 at 19:14; Status DC Haloperidol Lactate (Haldol) 5 mg PRN Q6HRS PRN IM AGITATION; Start 07/01/16 at 15:15; Stop 07/01/16 at 19:14; Status DC Diphenhydramine HCl (Benadryl) 25 mg PRN Q6HRS PRN PO ITCHING Last administered on 07/01/16 20:56; Start 07/01/16 at 18:00 Acetaminophen/ Hydrocodone Bitart (Lortab 5/325) 1 tab PRN BID PRN PO PAIN Last administered on 08/06/16 13:12; Start 07/02/16 at 21:45 Olanzapine (Zyprexa Zydis) 2.5 mg PRN Q2HR PRN PO PSYCHOSIS Last administered on 08/30/16 15:04; Start 07/02/16 at 21:45 Mirtazapine (Remeron) 15 mg QHS PO Last administered on 09/01/16 19:19; Start 07/03/16 at 21:00 Citalopram Hydrobromide (Celexa) 10 mg DAILY PO Last administered on 09/01/16 08:33; Start 07/03/16 at 09:00 Risperidone (Risperdal) 0.25 mg BID PO Last administered on 07/10/16 08:54; Start 07/03/16 at 21:00; Stop 07/10/16 at 15:18; Status DC Docusate Calcium (Surfak) 240 mg DAILY PO Last administered on 09/01/16 08:33 ; Start 07/04/16 at 21:00 Magnesium Hydroxide (Milk Of Magnesia) 2,400 mg PRN QHS PRN PO CONSTIPATION Last administered on 08/30/16 17:06; Start 07/04/16 at 18:15 Trazodone HCl (Desyrel) 50 mg QHS PO Last administered on 07/14/16 20:10; Start 07/05/16 at 21:00; Stop 07/15/16 at 13:52; Status DC Trazodone HCl (Desyrel) 50 mg PRN QHS PRN PO INSOMNIA Last administered on 21:27; Start 07/05/16 at 20:45; Stop 07/15/16 at 13:52; Status DC Hydroxyzine HCl (Atarax) 50 mg PRN Q2HR PRN PO Psychosis Last administered on 16:56; Start 07/06/16 at 04:30 Fentanyl (Duragesic 12mcg/ Hr) 1 patch Q3DAYS TD Last administered on 07:47; Start 07/08/16 at 18:30 Risperidone (Risperdal) 0.25 mg TID PO Last administered on 07/24/16 13:20; Start 07/10/16 at 21:00; Stop 07/24/16 at 18:29; Status DC Buspirone HCl (Buspar) 5 mg TID PO Last administered on 07/13/16 12:28; Start 07/10/16 at 21:00; Stop 07/13/16 at 15:32; Status DC Buspirone HCl (Buspar) 10 mg BID PO Last administered on 07/27/16 09:32; Start 07/13/16 at 21:00; Stop 07/27/16 at 18:29; Status DC Divalproex Sodium (Depakote Sprinkles) 125 mg BID PO Last administered on 07:46; Start 07/13/16 at 21:00; Stop 07/19/16 at 11:49; Status DC Vitamin D (Vitamin D3) 2,000 unit BIDPCLD PO Last administered on 09/01/16 17: 25; Start 07/14/16 at 12:30 Trazodone HCl (Desyrel) 100 mg QHS PO Last administered on 09/01/16 19:19; Start 07/15/16 at 21:00 Trazodone HCl (Desyrel) 100 mg PRN QHS PO ; Start 07/15/16 at 13:45; Stop at 23:01; Status DC Trazodone HCl (Desyrel) 100 mg PRN QHS PRN PO INSOMNIA Last administered on 19:23; Start 07/15/16 at 23:00 Quetiapine Fumarate (SEROquel) 50 mg 1X ONCE PO Last administered on 07/16/16 00:44; Start 07/16/16 at 00:30; Stop 07/16/16 at 00:31; Status DC Temazepam (Restoril) 30 mg PRN QHS PRN PO INSOMNIA Last administered on 19:04; Start 07/16/16 at 18:30; Stop 08/09/16 at 18:24; Status DC Divalproex Sodium (Depakote Sprinkles) 250 mg BID PO Last administered on 12:20; Start 07/19/16 at 21:00; Stop 07/22/16 at 18:23; Status DC Acetaminophen (Tylenol) 650 mg PRN Q6HRS PRN PO PAIN / TEMP Last administered on 08/24/16 13:04; Start 07/22/16 at 15:30 Divalproex Sodium (Depakote Sprinkles) 375 mg BID PO Last administered on 08:58; Start 07/22/16 at 21:00; Stop 08/04/16 at 17:56; Status DC Melatonin 6 mg QHS PO Last administered on 09/01/16 19:19; Start 07/22/16 at 21:00 Risperidone (Risperdal) 0.25 mg QID PO Last administered on 09/01/16 19:19; Start 07/24/16 at 21:00 Lorazepam (Ativan) 1 mg DAILY IM ; Start 07/27/16 at 09:00; Stop 07/27/16 at 09: 00; Status DC Lorazepam (Ativan) 1 mg 14 IM Last administered on 07/28/16 13:47; Start 07/26 at 15:00; Stop 07/29/16 at 14:13; Status DC Haloperidol Lactate (Haldol) 5 mg 1X ONCE IM Last administered on 07/27/16 16 :15; Start 07/27/16 at 16:15; Stop 07/27/16 at 16:16; Status DC Haloperidol Lactate (Haldol) 5 mg 14 IM Last administered on 07/28/16 13:46; Start 07/28/16 at 14:00; Stop 07/29/16 at 14:13; Status DC Buspirone HCl (Buspar) 10 mg TID PO Last administered on 08/04/16 08:58; Start 07/27/16 at 21:00; Stop 08/04/16 at 17:56; Status DC Trazodone HCl (Desyrel) 12.5 mg TIDWMEALS PO Last administered on 08/03/16 11: 58; Start 07/28/16 at 08:00; Stop 08/03/16 at 13:40; Status DC Fosfomycin Tromethamine (Monurol) 3 gm 1X ONCE PO Last administered on 06:27; Start 07/29/16 at 06:30; Stop 07/29/16 at 06:32; Status DC Trazodone HCl (Desyrel) 25 mg TIDWMEALS PO Last administered on 08/06/16 07:54 ; Start 08/03/16 at 17:00; Stop 08/06/16 at 11:24; Status DC Buspirone HCl (Buspar) 10 mg QID PO Last administered on 09/01/16 19:19; Start 08/04/16 at 21:00 Haloperidol Lactate (Haldol) 5 mg AFTRNOON IM Last administered on 08/17/16 13: 36; Start 08/05/16 at 13:15; Stop 08/19/16 at 18:30; Status DC Lorazepam (Ativan) 0.5 mg AFTRNOON IM Last administered on 08/17/16 13:36; Start 08/05/16 at 13:15; Stop 08/19/16 at 18:30; Status DC Oxcarbazepine (Trileptal) 300 mg BID PO Last administered on 08/11/16 09:48; Start 08/06/16 at 21:00; Stop 08/11/16 at 18:43; Status DC Trazodone HCl (Desyrel) 50 mg BID PO Last administered on 09/01/16 19:19; Start 08/06/16 at 21:00 Trazodone HCl (Desyrel) 50 mg 14 PO Last administered on 09/01/16 13:27; Start 08/06/16 at 14:00 Temazepam (Restoril) 15 mg PRN QHS PRN PO INSOMNIA Last administered on 19:39; Start 08/09/16 at 18:30 Oxcarbazepine (Trileptal) 300 mg TID PO Last administered on 09/01/16 19:19; Start 08/11/16 at 21:00 Haloperidol Decanoate (Haldol Decanoate Im Extended Release) 100 mg QMONTH IM Last administered on 08/13/16 21:04; Start 08/13/16 at 21:00 Haloperidol Lactate (Haldol) 5 mg QODAY IM Last administered on 08/30/16 07:45 ; Start 08/20/16 at 13:00; Stop 08/31/16 at 15:28; Status DC Lorazepam (Ativan) 0.5 mg QODAY IM Last administered on 08/30/16 07:44; Start 08/20/16 at 13:00; Stop 08/31/16 at 15:28; Status DC Nicotine (Nicoderm Cq 14mg) 1 patch DAILY TD Last administered on 09/01/16 08: 34; Start 08/28/16 at 09:00; Stop 09/04/16 at 08:59 Nicotine (Nicoderm Cq 7mg) 1 patch DAILY TD ; Start 09/04/16 at 09:00; Stop 09/11 at 08:59 Haloperidol Lactate (Haldol) 5 mg Q3DAYS IM ; Start 09/02/16 at 09:00 Lorazepam (Ativan) 0.5 mg Q3DAYS IM ; Start 09/02/16 at 09:00 Active Scripts Active Lisinopril 20 Mg Tablet 1 Tab PO DAILY NICODERM CQ 21mg (Nicotine) 1 Each Patch.td24 1 Patch TP DAILY Lorazepam 0.5 Mg Tablet 1 Tab PO Q4HRS PRN Hydroxyzine Hcl 25 Mg Tablet 1 Tab PO Q6HRS PRN Benadryl (Diphenhydramine Hcl) 25 Mg Capsule 1 Cap PO Q6HRS CAITLYN BHATT MD September 01, 2016 20:59
--- NOTE | 2016-09-01 21:26 | NUR ---
Behavior Intervention Response and Plan: BIRP Note: Behavior: Assumed Care of patient, patient located in Hallway at shift change. Patient exhibited the following behavior Calm, Wandering, Disorganized. Brief assessment on rounds of vital signs, medication needs, lab studies, and pain. Treatment plan problems Dementia W BD, Altered Mental Status, and Fall Risk. Intervention: Patient assessed and the following interventions initiated safety checks 15 Minute Checks Cognitive Assessment , Medications , Nutrition. Response: After interactions and interventions patient responded in the following manner, Calm , Wandering ,Compliant. Continue to assess behaviors and condition will continue to monitor throughout the shift as needed. Plan: Continue to monitor Master Treatment Plan for patient's progress toward short term goals of Decreased Agitation, Medication Compliance, correction goals to return to previous living setting vs placement. Continue to assess patient for changes in above assessment. Monitor for medication needs, pain, and safety concerns. Hourly rounding performed to ensure safe environment.
--- NOTE | 2016-09-01 23:36 | PN ---
DATE: 08/31/2016 PSYCHIATRIC PROGRESS NOTE This is late entry of 08/31/2016, covers elements not covered in my initial note. SUBJECTIVE: Per nursing report, the patient has been a little more cooperative, certainly confused and we will change her IM Haldol, Ativan to every 3 days instead of every 2 days. REVIEW OF SYSTEMS: No CV, , pulmonary, eye, ENT system symptoms on review. Reliability poor. MENTAL STATUS EXAMINATION: Oriented to herself. Insight, judgment, recent and remote memory, attention, concentration, fund of knowledge poor, consistent with her diagnosis mentioned in my initial note. PLAN: Continue the rest of the psychotropics and change the Haldol, Ativan IM as above, adjust further as clinically indicated. MAN Quinten BHATT MD DR: ALICIA/shanon JOB#: [id number] / [id number]
[2016-09-02 05:56] VITALS: BP 129/79
[2016-09-02] MEDS: CITALOPRAM 10 MG TABLET. PO SCH (08:15)
[2016-09-02] MEDS: traZODone 50 MG TABLET. PO SCH ×3 (08:15→19:17)
[2016-09-02] MEDS: busPIRone 10 MG TABLET. PO SCH ×4 (08:15→19:20)
[2016-09-02] MEDS: risperiDONE 0.25 MG TABLET. PO SCH ×4 (08:17→19:20)
[2016-09-02] MEDS: NICOTINE 14MG PATCH. TD SCH (08:17)
[2016-09-02] MEDS: LISINOPRIL 20 MG TABLET PO SCH (08:17)
[2016-09-02] MEDS: DOCUSATE CALCIUM 240 MG CAPSULE PO SCH (08:17)
[2016-09-02] MEDS ORDERED: LORazepam 2 MG/ML VIAL IM SCH (09:00)
[2016-09-02] MEDS ORDERED: HALOPERIDOL LACT 5 MG/ML VIAL. IM SCH (09:00)
--- NOTE | 2016-09-02 10:00 | NUR ---
Behavior Intervention Response and Plan: BIRP Note: Behavior: Assumed Care of patient, patient located in Hallway at shift change. Patient exhibited the following behavior Wandering, Calm, Disorganized. Brief assessment on rounds of vital signs, medication needs, lab studies, and pain. Treatment plan problems . Intervention: Patient assessed and the following interventions initiated safety checks 15 Minute Checks Call amaya in reach , Medications , Personal Alarm in place. Response: After interactions and interventions patient responded in the following manner, Wandering , Calm ,Disorganized. Continue to assess behaviors and condition will continue to monitor throughout the shift as needed. Plan: Continue to monitor Master Treatment Plan for patient's progress toward short term goals of Decreased Agitation, Decreased Anxiety, fpc goals to return to previous living setting vs placement. Continue to assess patient for changes in above assessment. Monitor for medication needs, pain, and safety concerns. Hourly rounding performed to ensure safe environment.
--- NOTE | 2016-09-02 10:20 | NUR ---
THERAPEUTIC RECREATION GROUP NOTE TITLE :YASMANYGO- Led by Candy ACTIVITY : Cognitive Stimulation GOAL : Stimulate memory, Increase problem solving DURATION : 60 minutes RESPONSE : No participation.
[2016-09-02] MEDS: CHOLECALCIFEROL (VITAMIN D3) 1,000 UNIT TABLET PO SCH ×2 (12:54→17:09)
--- NOTE | 2016-09-02 13:00 | NUR ---
THERAPEUTIC RECREATION GROUP NOTE TITLE :Characteristics of a [place] ACTIVITY : Cognitive Stimulation GOAL : Stimulate memory, Increase problem solving DURATION : 45 minutes RESPONSE : Minimal participation. Pt. wandered around, leaving and returning to the group several times. She was quiet but watched the group and made several comments about suggestions but did not come up with her own.
[2016-09-02 16:17] VITALS: BP 147/89
[2016-09-02] MEDS: traZODone 100 MG TABLET. PO SCH (19:19)
[2016-09-02] MEDS: MELATONIN 3 MG TABLET PO SCH (19:20)
[2016-09-02] MEDS: MIRTAZAPINE 15 MG TABLET PO SCH (19:20)
--- NOTE | 2016-09-02 20:48 | PDOC ---
Exam Yaya Demential Exam: Yaya Note: Please also refer to the separate dictated note~for this date of service dictated separately.~Patient seen individually. Discussed the patient with Nursing staff reviewed the chart.~Reviewed interim history and current functioning. Reviewed vital signs,~Labs/ Radiology~and current medications noted below. Continue current treatment with the changes noted in the dictated addendum note Assessment: Vital Signs: Vital Signs Date Time Temp Pulse Resp B/P (MAP) Pulse Ox O2 Delivery O2 Flow Rate FiO2 09/02/16 16:17 65 20 147/89 (108) 98 09/02/16 05:56 97.4 Room Air I&O Intake and Output 09/02/16 07:00 Intake Total 1200 ml Balance 1200 ml Intake Oral 1200 ml # Voids 2 # Bowel Movements 1 Current Medications: Meds: Current Medications Diphenhydramine HCl (Benadryl) 25 mg Q6HRS PO ; Start 07/01/16 at 18:00; Stop at 18:00; Status DC Hydroxyzine HCl (Atarax) 25 mg PRN Q6HRS PRN PO ITCHING Last administered on 01:19; Start 07/01/16 at 15:15; Stop 07/06/16 at 04:21; Status DC Lisinopril (Prinivil) 20 mg DAILY PO Last administered on 09/02/16 08:17; Start 07/02/16 at 09:00 Lorazepam (Ativan) 0.5 mg PRN Q4HRS PRN PO ANXIETY / AGITATION Last administered on 07/02/16 21:07; Start 07/01/16 at 15:15; Stop 07/02/16 at 21:44 ; Status DC Nicotine (Nicoderm Cq 21mg) 1 patch DAILY TD Last administered on 08/27/16 08: 33; Start 07/02/16 at 09:00; Stop 08/27/16 at 13:53; Status DC Lorazepam (Ativan) 0.5 mg PRN Q4HRS PRN IV ANXIETY / AGITATION; Start 07/01/16 at 15:15; Stop 07/01/16 at 19:14; Status DC Diphenhydramine HCl (Benadryl) 25 mg PRN Q6HRS PRN IVP ITCHING; Start 07/01/16 at 15:15; Stop 07/01/16 at 19:14; Status DC Haloperidol Lactate (Haldol) 5 mg PRN Q6HRS PRN IM AGITATION; Start 07/01/16 at 15:15; Stop 07/01/16 at 19:14; Status DC Diphenhydramine HCl (Benadryl) 25 mg PRN Q6HRS PRN PO ITCHING Last administered on 07/01/16 20:56; Start 07/01/16 at 18:00 Acetaminophen/ Hydrocodone Bitart (Lortab 5/325) 1 tab PRN BID PRN PO PAIN Last administered on 08/06/16 13:12; Start 07/02/16 at 21:45 Olanzapine (Zyprexa Zydis) 2.5 mg PRN Q2HR PRN PO PSYCHOSIS Last administered on 08/30/16 15:04; Start 07/02/16 at 21:45 Mirtazapine (Remeron) 15 mg QHS PO Last administered on 09/02/16 19:20; Start 07/03/16 at 21:00 Citalopram Hydrobromide (Celexa) 10 mg DAILY PO Last administered on 09/02/16 08:15; Start 07/03/16 at 09:00 Risperidone (Risperdal) 0.25 mg BID PO Last administered on 07/10/16 08:54; Start 07/03/16 at 21:00; Stop 07/10/16 at 15:18; Status DC Docusate Calcium (Surfak) 240 mg DAILY PO Last administered on 09/02/16 08:17 ; Start 07/04/16 at 21:00 Magnesium Hydroxide (Milk Of Magnesia) 2,400 mg PRN QHS PRN PO CONSTIPATION Last administered on 08/30/16 17:06; Start 07/04/16 at 18:15 Trazodone HCl (Desyrel) 50 mg QHS PO Last administered on 07/14/16 20:10; Start 07/05/16 at 21:00; Stop 07/15/16 at 13:52; Status DC Trazodone HCl (Desyrel) 50 mg PRN QHS PRN PO INSOMNIA Last administered on 21:27; Start 07/05/16 at 20:45; Stop 07/15/16 at 13:52; Status DC Hydroxyzine HCl (Atarax) 50 mg PRN Q2HR PRN PO Psychosis Last administered on 16:56; Start 07/06/16 at 04:30 Fentanyl (Duragesic 12mcg/ Hr) 1 patch Q3DAYS TD Last administered on 07:47; Start 07/08/16 at 18:30 Risperidone (Risperdal) 0.25 mg TID PO Last administered on 07/24/16 13:20; Start 07/10/16 at 21:00; Stop 07/24/16 at 18:29; Status DC Buspirone HCl (Buspar) 5 mg TID PO Last administered on 07/13/16 12:28; Start 07/10/16 at 21:00; Stop 07/13/16 at 15:32; Status DC Buspirone HCl (Buspar) 10 mg BID PO Last administered on 07/27/16 09:32; Start 07/13/16 at 21:00; Stop 07/27/16 at 18:29; Status DC Divalproex Sodium (Depakote Sprinkles) 125 mg BID PO Last administered on 07:46; Start 07/13/16 at 21:00; Stop 07/19/16 at 11:49; Status DC Vitamin D (Vitamin D3) 2,000 unit BIDPCLD PO Last administered on 09/02/16 17: 09; Start 07/14/16 at 12:30 Trazodone HCl (Desyrel) 100 mg QHS PO Last administered on 09/02/16 19:19; Start 07/15/16 at 21:00 Trazodone HCl (Desyrel) 100 mg PRN QHS PO ; Start 07/15/16 at 13:45; Stop at 23:01; Status DC Trazodone HCl (Desyrel) 100 mg PRN QHS PRN PO INSOMNIA Last administered on 19:23; Start 07/15/16 at 23:00 Quetiapine Fumarate (SEROquel) 50 mg 1X ONCE PO Last administered on 07/16/16 00:44; Start 07/16/16 at 00:30; Stop 07/16/16 at 00:31; Status DC Temazepam (Restoril) 30 mg PRN QHS PRN PO INSOMNIA Last administered on 19:04; Start 07/16/16 at 18:30; Stop 08/09/16 at 18:24; Status DC Divalproex Sodium (Depakote Sprinkles) 250 mg BID PO Last administered on 12:20; Start 07/19/16 at 21:00; Stop 07/22/16 at 18:23; Status DC Acetaminophen (Tylenol) 650 mg PRN Q6HRS PRN PO PAIN / TEMP Last administered on 08/24/16 13:04; Start 07/22/16 at 15:30 Divalproex Sodium (Depakote Sprinkles) 375 mg BID PO Last administered on 08:58; Start 07/22/16 at 21:00; Stop 08/04/16 at 17:56; Status DC Melatonin 6 mg QHS PO Last administered on 09/02/16 19:20; Start 07/22/16 at 21:00 Risperidone (Risperdal) 0.25 mg QID PO Last administered on 09/02/16 19:20; Start 07/24/16 at 21:00 Lorazepam (Ativan) 1 mg DAILY IM ; Start 07/27/16 at 09:00; Stop 07/27/16 at 09: 00; Status DC Lorazepam (Ativan) 1 mg 14 IM Last administered on 07/28/16 13:47; Start 07/26 at 15:00; Stop 07/29/16 at 14:13; Status DC Haloperidol Lactate (Haldol) 5 mg 1X ONCE IM Last administered on 07/27/16 16 :15; Start 07/27/16 at 16:15; Stop 07/27/16 at 16:16; Status DC Haloperidol Lactate (Haldol) 5 mg 14 IM Last administered on 07/28/16 13:46; Start 07/28/16 at 14:00; Stop 07/29/16 at 14:13; Status DC Buspirone HCl (Buspar) 10 mg TID PO Last administered on 08/04/16 08:58; Start 07/27/16 at 21:00; Stop 08/04/16 at 17:56; Status DC Trazodone HCl (Desyrel) 12.5 mg TIDWMEALS PO Last administered on 08/03/16 11: 58; Start 07/28/16 at 08:00; Stop 08/03/16 at 13:40; Status DC Fosfomycin Tromethamine (Monurol) 3 gm 1X ONCE PO Last administered on 06:27; Start 07/29/16 at 06:30; Stop 07/29/16 at 06:32; Status DC Trazodone HCl (Desyrel) 25 mg TIDWMEALS PO Last administered on 08/06/16 07:54 ; Start 08/03/16 at 17:00; Stop 08/06/16 at 11:24; Status DC Buspirone HCl (Buspar) 10 mg QID PO Last administered on 09/02/16 19:20; Start 08/04/16 at 21:00 Haloperidol Lactate (Haldol) 5 mg AFTRNOON IM Last administered on 08/17/16 13: 36; Start 08/05/16 at 13:15; Stop 08/19/16 at 18:30; Status DC Lorazepam (Ativan) 0.5 mg AFTRNOON IM Last administered on 08/17/16 13:36; Start 08/05/16 at 13:15; Stop 08/19/16 at 18:30; Status DC Oxcarbazepine (Trileptal) 300 mg BID PO Last administered on 08/11/16 09:48; Start 08/06/16 at 21:00; Stop 08/11/16 at 18:43; Status DC Trazodone HCl (Desyrel) 50 mg BID PO Last administered on 09/02/16 19:17; Start 08/06/16 at 21:00 Trazodone HCl (Desyrel) 50 mg 14 PO Last administered on 09/02/16 14:14; Start 08/06/16 at 14:00 Temazepam (Restoril) 15 mg PRN QHS PRN PO INSOMNIA Last administered on 19:39; Start 08/09/16 at 18:30 Oxcarbazepine (Trileptal) 300 mg TID PO Last administered on 09/02/16 19:20; Start 08/11/16 at 21:00 Haloperidol Decanoate (Haldol Decanoate Im Extended Release) 100 mg QMONTH IM Last administered on 08/13/16 21:04; Start 08/13/16 at 21:00 Haloperidol Lactate (Haldol) 5 mg QODAY IM Last administered on 08/30/16 07:45 ; Start 08/20/16 at 13:00; Stop 08/31/16 at 15:28; Status DC Lorazepam (Ativan) 0.5 mg QODAY IM Last administered on 08/30/16 07:44; Start 08/20/16 at 13:00; Stop 08/31/16 at 15:28; Status DC Nicotine (Nicoderm Cq 14mg) 1 patch DAILY TD Last administered on 09/02/16 08: 17; Start 08/28/16 at 09:00; Stop 09/04/16 at 08:59 Nicotine (Nicoderm Cq 7mg) 1 patch DAILY TD ; Start 09/04/16 at 09:00; Stop 09/11 at 08:59 Haloperidol Lactate (Haldol) 5 mg Q3DAYS IM Last administered on 09/02/16 08: 23; Start 09/02/16 at 09:00 Lorazepam (Ativan) 0.5 mg Q3DAYS IM Last administered on 09/02/16 08:24; Start 09/02/16 at 09:00 Active Scripts Active Lisinopril 20 Mg Tablet 1 Tab PO DAILY NICODERM CQ 21mg (Nicotine) 1 Each Patch.td24 1 Patch TP DAILY Lorazepam 0.5 Mg Tablet 1 Tab PO Q4HRS PRN Hydroxyzine Hcl 25 Mg Tablet 1 Tab PO Q6HRS PRN Benadryl (Diphenhydramine Hcl) 25 Mg Capsule 1 Cap PO Q6HRS CAITLYN BHATT MD September 02, 2016 20:48
--- NOTE | 2016-09-03 04:32 | NUR ---
Behavior Intervention Response and Plan: BIRP Note: Behavior: Assumed Care of patient, patient located in Day Room at shift change. Patient exhibited the following behavior Wandering, Interactive, Disorganized. Brief assessment on rounds of vital signs, medication needs, lab studies, and pain. Treatment plan problems Dementia W BD, Altered Mental Status, and Fall Risk. Intervention: Patient assessed and the following interventions initiated safety checks 15 Minute Checks Cognitive Assessment , Medications , Nutrition. Response: After interactions and interventions patient responded in the following manner, Calm , Disorganized ,Compliant. Continue to assess behaviors and condition will continue to monitor throughout the shift as needed. 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 Continue to assess patient for changes in above assessment. Monitor for medication needs, pain, and safety concerns. Hourly rounding performed to ensure safe environment.
[2016-09-03 05:52] VITALS: BP 142/84
--- NOTE | 2016-09-03 07:08 | PN ---
DATE: 09/01/2016 This is a late entry for date of service 09/01/2016 and covers the elements not covered in my initial note. SUBJECTIVE: Overall, per nursing report, the patient has had a good day. No p.r.n.'s were used. She remains confused, frequently asking where she is, what time it is, wandering, redirects. REVIEW OF SYSTEMS: No CV, , pulmonary, eye, ENT system symptoms on review. MENTAL STATUS EXAM: Oriented to herself. Insight, judgment, recent and remote memory, attention, concentration, fund of knowledge poor, consistent with her diagnosis. She remains oblivious of her surroundings. LABORATORY DATA: Reviewed. IMPRESSION: Unchanged from initial note. PLAN: Continue current psychotropics. IM Haldol, Ativan had been reduced to every third day on a scheduled basis and not being used as a restraint, all p.r.n. medication. Maintain the rest of the psychotropics unchanged. CAITLYN BHATT MD DR: ALICIA/shanon JOB#: [id number] / [id number]
[2016-09-03] MEDS: DOCUSATE CALCIUM 240 MG CAPSULE PO SCH (08:29)
[2016-09-03] MEDS: traZODone 50 MG TABLET. PO SCH ×3 (08:30→19:21)
[2016-09-03] MEDS: risperiDONE 0.25 MG TABLET. PO SCH ×4 (08:32→19:21)
[2016-09-03] MEDS: CITALOPRAM 10 MG TABLET. PO SCH (08:32)
[2016-09-03] MEDS: busPIRone 10 MG TABLET. PO SCH ×4 (08:32→19:21)
[2016-09-03] MEDS: NICOTINE 14MG PATCH. TD SCH (08:33)
[2016-09-03] MEDS: LISINOPRIL 20 MG TABLET PO SCH (08:33)
[2016-09-03] MEDS: fentaNYL 12MCG/HR 1 PATCH PATCH TD SCH (08:36)
[2016-09-03 09:49] LABS: HEMATOCRIT 36.5 % (36.0-47.0); HEMOGLOBIN 12.1 g/dL (12.0-15.5); RED BLOOD COUNT 4.14 x10^6/uL (3.50-5.40); RED CELL DISTRIBUTION WIDTH 14.9 % (11.5-14.5); WHITE BLOOD COUNT 11.6 x10^3/uL (4.0-11.0)
[2016-09-03 10:10] LABS: ALBUMIN 3.6 g/dL (3.4-5.0); ALBUMIN/GLOBULIN RATIO 0.8 (1.0-1.7); CALCIUM 9.3 mg/dL (8.5-10.1); CREATININE 0.9 mg/dL (0.6-1.0); GFR 61.7; POTASSIUM 3.7 mmol/L (3.5-5.1); TOTAL BILIRUBIN 0.4 mg/dL (0.2-1.0)
[2016-09-03] MEDS: CHOLECALCIFEROL (VITAMIN D3) 1,000 UNIT TABLET PO SCH ×2 (12:32→17:39)
[2016-09-03] MEDS: PENICILLIN V K PO SCH ×3 (12:49→23:00)
[2016-09-03] MEDS ORDERED: PENICILLIN V K 250 MG TABLET. PO SCH (13:00)
--- NOTE | 2016-09-03 13:00 | NUR ---
Behavior Intervention Response and Plan: BIRP Note: Behavior: Assumed Care of patient, patient located in Hallway at shift change. Patient exhibited the following behavior Calm, Disorganized, Compliant. Brief assessment on rounds of vital signs, medication needs, lab studies, and pain. Treatment plan problems . Intervention: Patient assessed and the following interventions initiated safety checks 15 Minute Checks Call amaya in reach , Medications , Call amaya in reach. Response: After interactions and interventions patient responded in the following manner, Wandering , Disorganized ,Compliant. Continue to assess behaviors and condition will continue to monitor throughout the shift as needed. Plan: Continue to monitor Master Treatment Plan for patient's progress toward short term goals of Decreased Agitation, Decreased Anxiety, group home goals to return to previous living setting vs placement. Continue to assess patient for changes in above assessment. Monitor for medication needs, pain, and safety concerns. Hourly rounding performed to ensure safe environment.
--- NOTE | 2016-09-03 13:30 | NUR ---
THERAPEUTIC RECREATION GROUP NOTE TITLE :[place] [employer] ACTIVITY : [employer] GOAL : Increase socialization, fine motor skills, creativity DURATION : 90 Minutes RESPONSE : No participation.
[2016-09-03 15:41] VITALS: BP 123/64
--- NOTE | 2016-09-03 16:18 | NUR ---
TIA dept. has spent hours trying to locate facilites to send out faxes regarding pt referral. TIA dept has called 54 places (please note chart for a copy) looking for memory care units that are accepting, behaviors and medicaid pending. TIA has only located a few few places. [facility] willing to look at a referral packet. TIA will send out packets and follow up. dept will continue to look for placement.
[2016-09-03 19:17] LABS: BILIRUBIN,URINE NEG (NEG); CLARITY,URINE HAZY; COLOR,URINE YELLOW; GLUCOSE,URINE NEG (NEG)
[2016-09-03 19:18] LABS: NITRITE,URINE NEG (NEG); UROBILINOGEN,URINE 0.2 mg/dL (0.2 mg/dL)
[2016-09-03 19:19] LABS: BACTERIA,URINE FEW /HPF (0-FEW); SQUAMOUS EPITHELIAL CELL,UR MANY /LPF
[2016-09-03] MEDS: MELATONIN 3 MG TABLET PO SCH (19:21)
[2016-09-03] MEDS: MIRTAZAPINE 15 MG TABLET PO SCH (19:21)
[2016-09-03] MEDS: traZODone 100 MG TABLET. PO SCH (19:21)
--- NOTE | 2016-09-03 20:24 | PDOC ---
Exam Yaya Demential Exam: Yaya Note: Please also refer to the separate dictated note~for this date of service dictated separately.~Patient seen individually. Discussed the patient with Nursing staff reviewed the chart.~Reviewed interim history and current functioning. Reviewed vital signs,~Labs/ Radiology~and current medications noted below. Continue current treatment with the changes noted in the dictated addendum note Assessment: Vital Signs: Vital Signs Date Time Temp Pulse Resp B/P (MAP) Pulse Ox O2 Delivery O2 Flow Rate FiO2 09/03/16 15:41 99.3 89 18 123/64 (83) 98 09/03/16 12:40 Room Air I&O Intake and Output 09/03/16 07:00 Intake Total 600 ml Balance 600 ml Intake Oral 600 ml Labs: Laboratory Tests Test 09/03/16 09:37 09/03/16 17:45 White Blood Count 11.6 x10^3/uL (4.0-11.0) H Red Blood Count 4.14 x10^6/uL (3.50-5.40) Hemoglobin 12.1 g/dL (12.0-15.5) Hematocrit 36.5 % (36.0-47.0) Mean Corpuscular Volume 88 fL (79-100) Mean Corpuscular Hemoglobin 29 pg (25-35) Mean Corpuscular Hemoglobin Concent 33 g/dL (31-37) Red Cell Distribution Width 14.9 % (11.5-14.5) H Platelet Count 370 x10^3/uL (140-400) Sodium Level 140 mmol/L (136-145) Potassium Level 3.7 mmol/L (3.5-5.1) Chloride Level 101 mmol/L (98-107) Carbon Dioxide Level 30 mmol/L (21-32) Anion Gap 9 (6-14) Blood Urea Nitrogen 14 mg/dL (7-20) Creatinine 0.9 mg/dL (0.6-1.0) Estimated GFR (Cockcroft-Gault) 61.7 BUN/Creatinine Ratio 16 (6-20) Glucose Level 116 mg/dL (70-99) H Calcium Level 9.3 mg/dL (8.5-10.1) Total Bilirubin 0.4 mg/dL (0.2-1.0) Aspartate Amino Transferase (AST) 40 U/L (15-37) H Alanine Aminotransferase (ALT) 48 U/L (14-59) Alkaline Phosphatase 111 U/L (46-116) Total Protein 8.0 g/dL (6.4-8.2) Albumin 3.6 g/dL (3.4-5.0) Albumin/Globulin Ratio 0.8 (1.0-1.7) L Urine Collection Type Unknown Urine Color Yellow Urine Clarity Hazy Urine pH 5.5 Urine Specific [place] 1.020 Urine Protein Neg (NEG-TRACE) Urine Glucose (UA) Neg mg/dL (NEG) Urine Ketones (Stick) Neg mg/dL (NEG) Urine Blood Trace (NEG) Urine Nitrite Neg (NEG) Urine Bilirubin Neg (NEG) Urine Urobilinogen Dipstick 0.2 mg/dL (0.2 mg/dL) Urine Leukocyte Esterase Neg (NEG) Urine RBC 3-5 /HPF (0-2) Urine WBC 1-4 /HPF (0-4) Urine Squamous Epithelial Cells Many /LPF Urine Bacteria Few /HPF (0-FEW) Urine Mucus Mod /LPF Current Medications: Meds: Current Medications Diphenhydramine HCl (Benadryl) 25 mg Q6HRS PO ; Start 07/01/16 at 18:00; Stop at 18:00; Status DC Hydroxyzine HCl (Atarax) 25 mg PRN Q6HRS PRN PO ITCHING Last administered on 01:19; Start 07/01/16 at 15:15; Stop 07/06/16 at 04:21; Status DC Lisinopril (Prinivil) 20 mg DAILY PO Last administered on 09/03/16 08:33; Start 07/02/16 at 09:00 Lorazepam (Ativan) 0.5 mg PRN Q4HRS PRN PO ANXIETY / AGITATION Last administered on 07/02/16 21:07; Start 07/01/16 at 15:15; Stop 07/02/16 at 21:44 ; Status DC Nicotine (Nicoderm Cq 21mg) 1 patch DAILY TD Last administered on 08/27/16 08: 33; Start 07/02/16 at 09:00; Stop 08/27/16 at 13:53; Status DC Lorazepam (Ativan) 0.5 mg PRN Q4HRS PRN IV ANXIETY / AGITATION; Start 07/01/16 at 15:15; Stop 07/01/16 at 19:14; Status DC Diphenhydramine HCl (Benadryl) 25 mg PRN Q6HRS PRN IVP ITCHING; Start 07/01/16 at 15:15; Stop 07/01/16 at 19:14; Status DC Haloperidol Lactate (Haldol) 5 mg PRN Q6HRS PRN IM AGITATION; Start 07/01/16 at 15:15; Stop 07/01/16 at 19:14; Status DC Diphenhydramine HCl (Benadryl) 25 mg PRN Q6HRS PRN PO ITCHING Last administered on 07/01/16 20:56; Start 07/01/16 at 18:00 Acetaminophen/ Hydrocodone Bitart (Lortab 5/325) 1 tab PRN BID PRN PO PAIN Last administered on 08/06/16 13:12; Start 07/02/16 at 21:45 Olanzapine (Zyprexa Zydis) 2.5 mg PRN Q2HR PRN PO PSYCHOSIS Last administered on 08/30/16 15:04; Start 07/02/16 at 21:45 Mirtazapine (Remeron) 15 mg QHS PO Last administered on 09/03/16 19:21; Start 07/03/16 at 21:00 Citalopram Hydrobromide (Celexa) 10 mg DAILY PO Last administered on 09/03/16 08:32; Start 07/03/16 at 09:00 Risperidone (Risperdal) 0.25 mg BID PO Last administered on 07/10/16 08:54; Start 07/03/16 at 21:00; Stop 07/10/16 at 15:18; Status DC Docusate Calcium (Surfak) 240 mg DAILY PO Last administered on 09/03/16 08:29 ; Start 07/04/16 at 21:00 Magnesium Hydroxide (Milk Of Magnesia) 2,400 mg PRN QHS PRN PO CONSTIPATION Last administered on 08/30/16 17:06; Start 07/04/16 at 18:15 Trazodone HCl (Desyrel) 50 mg QHS PO Last administered on 07/14/16 20:10; Start 07/05/16 at 21:00; Stop 07/15/16 at 13:52; Status DC Trazodone HCl (Desyrel) 50 mg PRN QHS PRN PO INSOMNIA Last administered on 21:27; Start 07/05/16 at 20:45; Stop 07/15/16 at 13:52; Status DC Hydroxyzine HCl (Atarax) 50 mg PRN Q2HR PRN PO Psychosis Last administered on 16:56; Start 07/06/16 at 04:30 Fentanyl (Duragesic 12mcg/ Hr) 1 patch Q3DAYS TD Last administered on 08:36; Start 07/08/16 at 18:30 Risperidone (Risperdal) 0.25 mg TID PO Last administered on 07/24/16 13:20; Start 07/10/16 at 21:00; Stop 07/24/16 at 18:29; Status DC Buspirone HCl (Buspar) 5 mg TID PO Last administered on 07/13/16 12:28; Start 07/10/16 at 21:00; Stop 07/13/16 at 15:32; Status DC Buspirone HCl (Buspar) 10 mg BID PO Last administered on 07/27/16 09:32; Start 07/13/16 at 21:00; Stop 07/27/16 at 18:29; Status DC Divalproex Sodium (Depakote Sprinkles) 125 mg BID PO Last administered on 07:46; Start 07/13/16 at 21:00; Stop 07/19/16 at 11:49; Status DC Vitamin D (Vitamin D3) 2,000 unit BIDPCLD PO Last administered on 09/03/16 17: 39; Start 07/14/16 at 12:30 Trazodone HCl (Desyrel) 100 mg QHS PO Last administered on 09/03/16 19:21; Start 07/15/16 at 21:00 Trazodone HCl (Desyrel) 100 mg PRN QHS PO ; Start 07/15/16 at 13:45; Stop at 23:01; Status DC Trazodone HCl (Desyrel) 100 mg PRN QHS PRN PO INSOMNIA Last administered on 19:23; Start 07/15/16 at 23:00 Quetiapine Fumarate (SEROquel) 50 mg 1X ONCE PO Last administered on 07/16/16 00:44; Start 07/16/16 at 00:30; Stop 07/16/16 at 00:31; Status DC Temazepam (Restoril) 30 mg PRN QHS PRN PO INSOMNIA Last administered on 19:04; Start 07/16/16 at 18:30; Stop 08/09/16 at 18:24; Status DC Divalproex Sodium (Depakote Sprinkles) 250 mg BID PO Last administered on 12:20; Start 07/19/16 at 21:00; Stop 07/22/16 at 18:23; Status DC Acetaminophen (Tylenol) 650 mg PRN Q6HRS PRN PO PAIN / TEMP Last administered on 08/24/16 13:04; Start 07/22/16 at 15:30 Divalproex Sodium (Depakote Sprinkles) 375 mg BID PO Last administered on 08:58; Start 07/22/16 at 21:00; Stop 08/04/16 at 17:56; Status DC Melatonin 6 mg QHS PO Last administered on 09/03/16 19:21; Start 07/22/16 at 21:00 Risperidone (Risperdal) 0.25 mg QID PO Last administered on 09/03/16 19:21; Start 07/24/16 at 21:00 Lorazepam (Ativan) 1 mg DAILY IM ; Start 07/27/16 at 09:00; Stop 07/27/16 at 09: 00; Status DC Lorazepam (Ativan) 1 mg 14 IM Last administered on 07/28/16 13:47; Start 07/26 at 15:00; Stop 07/29/16 at 14:13; Status DC Haloperidol Lactate (Haldol) 5 mg 1X ONCE IM Last administered on 07/27/16 16 :15; Start 07/27/16 at 16:15; Stop 07/27/16 at 16:16; Status DC Haloperidol Lactate (Haldol) 5 mg 14 IM Last administered on 07/28/16 13:46; Start 07/28/16 at 14:00; Stop 07/29/16 at 14:13; Status DC Buspirone HCl (Buspar) 10 mg TID PO Last administered on 08/04/16 08:58; Start 07/27/16 at 21:00; Stop 08/04/16 at 17:56; Status DC Trazodone HCl (Desyrel) 12.5 mg TIDWMEALS PO Last administered on 08/03/16 11: 58; Start 07/28/16 at 08:00; Stop 08/03/16 at 13:40; Status DC Fosfomycin Tromethamine (Monurol) 3 gm 1X ONCE PO Last administered on 06:27; Start 07/29/16 at 06:30; Stop 07/29/16 at 06:32; Status DC Trazodone HCl (Desyrel) 25 mg TIDWMEALS PO Last administered on 08/06/16 07:54 ; Start 08/03/16 at 17:00; Stop 08/06/16 at 11:24; Status DC Buspirone HCl (Buspar) 10 mg QID PO Last administered on 09/03/16 19:21; Start 08/04/16 at 21:00 Haloperidol Lactate (Haldol) 5 mg AFTRNOON IM Last administered on 08/17/16 13: 36; Start 08/05/16 at 13:15; Stop 08/19/16 at 18:30; Status DC Lorazepam (Ativan) 0.5 mg AFTRNOON IM Last administered on 08/17/16 13:36; Start 08/05/16 at 13:15; Stop 08/19/16 at 18:30; Status DC Oxcarbazepine (Trileptal) 300 mg BID PO Last administered on 08/11/16 09:48; Start 08/06/16 at 21:00; Stop 08/11/16 at 18:43; Status DC Trazodone HCl (Desyrel) 50 mg BID PO Last administered on 09/03/16 19:21; Start 08/06/16 at 21:00 Trazodone HCl (Desyrel) 50 mg 14 PO Last administered on 09/03/16 14:07; Start 08/06/16 at 14:00 Temazepam (Restoril) 15 mg PRN QHS PRN PO INSOMNIA Last administered on 19:39; Start 08/09/16 at 18:30 Oxcarbazepine (Trileptal) 300 mg TID PO Last administered on 09/03/16 19:21; Start 08/11/16 at 21:00 Haloperidol Decanoate (Haldol Decanoate Im Extended Release) 100 mg QMONTH IM Last administered on 08/13/16 21:04; Start 08/13/16 at 21:00 Haloperidol Lactate (Haldol) 5 mg QODAY IM Last administered on 08/30/16 07:45 ; Start 08/20/16 at 13:00; Stop 08/31/16 at 15:28; Status DC Lorazepam (Ativan) 0.5 mg QODAY IM Last administered on 08/30/16 07:44; Start 08/20/16 at 13:00; Stop 08/31/16 at 15:28; Status DC Nicotine (Nicoderm Cq 14mg) 1 patch DAILY TD Last administered on 09/03/16 08: 33; Start 08/28/16 at 09:00; Stop 09/04/16 at 08:59 Nicotine (Nicoderm Cq 7mg) 1 patch DAILY TD ; Start 09/04/16 at 09:00; Stop 09/11 at 08:59 Haloperidol Lactate (Haldol) 5 mg Q3DAYS IM Last administered on 09/02/16 08: 23; Start 09/02/16 at 09:00 Lorazepam (Ativan) 0.5 mg Q3DAYS IM Last administered on 09/02/16 08:24; Start 09/02/16 at 09:00 Chlorhexidine Gluconate (Peridex) 15 ml BID SWSP ; Start 09/03/16 at 21:00 Penicillin V Potassium (Veetid) 500 mg Q6HRS PO ; Start 09/03/16 at 13:00; Stop 09/03/16 at 13:00; Status DC Penicillin V Potassium (Veetid) 500 mg Q6HRS PO Last administered on 09/03/16 17:39; Start 09/03/16 at 13:00 Active Scripts Active Lisinopril 20 Mg Tablet 1 Tab PO DAILY NICODERM CQ 21mg (Nicotine) 1 Each Patch.td24 1 Patch TP DAILY Lorazepam 0.5 Mg Tablet 1 Tab PO Q4HRS PRN Hydroxyzine Hcl 25 Mg Tablet 1 Tab PO Q6HRS PRN Benadryl (Diphenhydramine Hcl) 25 Mg Capsule 1 Cap PO Q6HRS CAITLYN BHATT MD September 03, 2016 20:24
--- NOTE | 2016-09-03 22:20 | NUR ---
Behavior Intervention Response and Plan: BIRP Note: Behavior: Assumed Care of patient, patient located in Day Room at shift change. Patient exhibited the following behavior Interactive, Calm, Disorganized. Brief assessment on rounds of vital signs, medication needs, lab studies, and pain. Treatment plan problems 1 and 2. Intervention: Patient assessed and the following interventions initiated safety checks 15 Minute Checks Cognitive Assessment , Head to toe Assessment , Medications. Response: After interactions and interventions patient responded in the following manner, Restless , Wandering ,Disorganized. Continue to assess behaviors and condition will continue to monitor throughout the shift as needed. 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 Continue to assess patient for changes in above assessment. Monitor for medication needs, pain, and safety concerns. Hourly rounding performed to ensure safe environment.
--- NOTE | 2016-09-03 22:54 | PN ---
DATE: 09/03/2016 SUBJECTIVE: The patient is a 70-year-old female patient whom I have seen today as the nursing staff was concerned that she has halitosis. This has been going on for a while now and patient herself did not complain of any pain or sore throat or toothache or stuffy nose. OBJECTIVE: GENERAL: When I examined her, she looked well and was clearly in no apparent respiratory distress, somewhat pale, but no jaundice, cyanosis or thyromegaly. No jugular venous distention. No limb edema. VITAL SIGNS: Her heart rate was 71, blood pressure 142/84, temperature was 98.5, respiratory rate was 16 and oxygen saturation was 94%. HEAD, EYES, EARS, NOSE AND THROAT: Showed she is normocephalic, atraumatic. There is no tenderness on the frontal or maxillary sinuses. Examination of the oral cavity showed no evidence of any oropharyngeal candidiasis. She does have dental caries involving the left upper molar tooth; however, most other teeth seemed to be relatively healthy with no plaquing. ASSESSMENT: Halitosis. Plan is to obviously encourage the patient to brush her teeth and use dental floss. I also started her on chlorhexidine gluconate 15 mL swish and spit twice a day and penicillin V, potassium 500 mg 4 times a day for 10 days. CHADWICK DE LA TORRE MD DR: GIANFRANCO/shanon JOB#: [id number] / [id number]
[2016-09-03] MEDS: traZODone 100 MG TABLET. PO PRN (23:00)
[2016-09-03] MEDS: CHLORHEXIDINE 0.12% 15 ML MOUTHWASH. SWSP SCH (23:00)
[2016-09-04] MEDS: PENICILLIN V K PO SCH ×4 (05:08→23:07)
[2016-09-04 06:06] VITALS: BP 116/62
[2016-09-04] MEDS: CITALOPRAM 10 MG TABLET. PO SCH (07:37)
[2016-09-04] MEDS: LISINOPRIL 20 MG TABLET PO SCH (07:37)
[2016-09-04] MEDS: CHLORHEXIDINE 0.12% 15 ML MOUTHWASH. SWSP SCH ×2 (07:37→19:17)
[2016-09-04] MEDS: traZODone 50 MG TABLET. PO SCH ×3 (07:37→19:17)
[2016-09-04] MEDS: DOCUSATE CALCIUM 240 MG CAPSULE PO SCH (07:37)
[2016-09-04] MEDS: busPIRone 10 MG TABLET. PO SCH ×4 (07:38→19:16)
[2016-09-04] MEDS: risperiDONE 0.25 MG TABLET. PO SCH ×4 (07:38→19:17)
[2016-09-04] MEDS: CHOLECALCIFEROL (VITAMIN D3) 1,000 UNIT TABLET PO SCH ×2 (07:38→16:39)
[2016-09-04] MEDS: NICOTINE 7MG PATCH. TD SCH (07:44)
--- NOTE | 2016-09-04 08:44 | NUR ---
Behavior Intervention Response and Plan: BIRP Note: Behavior: Assumed Care of patient, patient located in Dining Room at shift change. Patient exhibited the following behavior Disorganized, Calm, . Brief assessment on rounds of vital signs, medication needs, lab studies, and pain. Treatment plan problems . Intervention: Patient assessed and the following interventions initiated safety checks 15 Minute Checks Cognitive Assessment , Head to toe Assessment , Medications. Response: After interactions and interventions patient responded in the following manner, Compliant , Disorganized ,Drowsy. Continue to assess behaviors and condition will continue to monitor throughout the shift as needed. 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 Continue to assess patient for changes in above assessment. Monitor for medication needs, pain, and safety concerns. Hourly rounding performed to ensure safe environment.
--- NOTE | 2016-09-04 14:00 | NUR ---
THERAPEUTIC RECREATION GROUP NOTE TITLE :[place] Decorating: [facility] ACTIVITY : Activities and Games GOAL : Facilitate sense of belonging and well-being, elevate mood, increase socialization and social skills. Incorporate traditions. DURATION : 45 minutes RESPONSE : Pt. was initially uncooperative but with encouragement, Pt. sat and participated fully. She got frosting over the table, hands, and drink bottle. She needed prompting and demonstrations but was compliant and agreeable. She asked about her personal belongings once as she started wandering out the room but she was redirected easily back to the group.
--- NOTE | 2016-09-04 15:06 | NUR ---
pt didn't sleep well last noc. drowsy this am. tripped and almost fell. staff place pt back in bed. slept till lunch. meds taken without difficulty. wanders, restless.
[2016-09-04 15:51] VITALS: BP 107/66
[2016-09-04] MEDS: MIRTAZAPINE 15 MG TABLET PO SCH (19:16)
[2016-09-04] MEDS: MELATONIN 3 MG TABLET PO SCH (19:17)
[2016-09-04] MEDS: traZODone 100 MG TABLET. PO SCH (19:17)
--- NOTE | 2016-09-04 21:17 | PDOC ---
Exam Yaya Demential Exam: Yaya Note: Please also refer to the separate dictated note~for this date of service dictated separately.~Patient seen individually. Discussed the patient with Nursing staff reviewed the chart.~Reviewed interim history and current functioning. Reviewed vital signs,~Labs/ Radiology~and current medications noted below. Continue current treatment with the changes noted in the dictated addendum note Assessment: Vital Signs: Vital Signs Date Time Temp Pulse Resp B/P (MAP) Pulse Ox O2 Delivery O2 Flow Rate FiO2 09/04/16 15:51 98.0 73 20 107/66 (80) 96 09/03/16 12:40 Room Air I&O Intake and Output 09/04/16 07:00 Intake Total 1320 ml Balance 1320 ml Intake Oral 1320 ml Current Medications: Meds: Current Medications Diphenhydramine HCl (Benadryl) 25 mg Q6HRS PO ; Start 07/01/16 at 18:00; Stop at 18:00; Status DC Hydroxyzine HCl (Atarax) 25 mg PRN Q6HRS PRN PO ITCHING Last administered on 01:19; Start 07/01/16 at 15:15; Stop 07/06/16 at 04:21; Status DC Lisinopril (Prinivil) 20 mg DAILY PO Last administered on 09/04/16 07:37; Start 07/02/16 at 09:00 Lorazepam (Ativan) 0.5 mg PRN Q4HRS PRN PO ANXIETY / AGITATION Last administered on 07/02/16 21:07; Start 07/01/16 at 15:15; Stop 07/02/16 at 21:44 ; Status DC Nicotine (Nicoderm Cq 21mg) 1 patch DAILY TD Last administered on 08/27/16 08: 33; Start 07/02/16 at 09:00; Stop 08/27/16 at 13:53; Status DC Lorazepam (Ativan) 0.5 mg PRN Q4HRS PRN IV ANXIETY / AGITATION; Start 07/01/16 at 15:15; Stop 07/01/16 at 19:14; Status DC Diphenhydramine HCl (Benadryl) 25 mg PRN Q6HRS PRN IVP ITCHING; Start 07/01/16 at 15:15; Stop 07/01/16 at 19:14; Status DC Haloperidol Lactate (Haldol) 5 mg PRN Q6HRS PRN IM AGITATION; Start 07/01/16 at 15:15; Stop 07/01/16 at 19:14; Status DC Diphenhydramine HCl (Benadryl) 25 mg PRN Q6HRS PRN PO ITCHING Last administered on 07/01/16 20:56; Start 07/01/16 at 18:00 Acetaminophen/ Hydrocodone Bitart (Lortab 5/325) 1 tab PRN BID PRN PO PAIN Last administered on 08/06/16 13:12; Start 07/02/16 at 21:45 Olanzapine (Zyprexa Zydis) 2.5 mg PRN Q2HR PRN PO PSYCHOSIS Last administered on 08/30/16 15:04; Start 07/02/16 at 21:45 Mirtazapine (Remeron) 15 mg QHS PO Last administered on 09/04/16 19:16; Start 07/03/16 at 21:00 Citalopram Hydrobromide (Celexa) 10 mg DAILY PO Last administered on 09/04/16 07:37; Start 07/03/16 at 09:00 Risperidone (Risperdal) 0.25 mg BID PO Last administered on 07/10/16 08:54; Start 07/03/16 at 21:00; Stop 07/10/16 at 15:18; Status DC Docusate Calcium (Surfak) 240 mg DAILY PO Last administered on 09/04/16 07:37 ; Start 07/04/16 at 21:00 Magnesium Hydroxide (Milk Of Magnesia) 2,400 mg PRN QHS PRN PO CONSTIPATION Last administered on 08/30/16 17:06; Start 07/04/16 at 18:15 Trazodone HCl (Desyrel) 50 mg QHS PO Last administered on 07/14/16 20:10; Start 07/05/16 at 21:00; Stop 07/15/16 at 13:52; Status DC Trazodone HCl (Desyrel) 50 mg PRN QHS PRN PO INSOMNIA Last administered on 21:27; Start 07/05/16 at 20:45; Stop 07/15/16 at 13:52; Status DC Hydroxyzine HCl (Atarax) 50 mg PRN Q2HR PRN PO Psychosis Last administered on 16:56; Start 07/06/16 at 04:30 Fentanyl (Duragesic 12mcg/ Hr) 1 patch Q3DAYS TD Last administered on 08:36; Start 07/08/16 at 18:30 Risperidone (Risperdal) 0.25 mg TID PO Last administered on 07/24/16 13:20; Start 07/10/16 at 21:00; Stop 07/24/16 at 18:29; Status DC Buspirone HCl (Buspar) 5 mg TID PO Last administered on 07/13/16 12:28; Start 07/10/16 at 21:00; Stop 07/13/16 at 15:32; Status DC Buspirone HCl (Buspar) 10 mg BID PO Last administered on 07/27/16 09:32; Start 07/13/16 at 21:00; Stop 07/27/16 at 18:29; Status DC Divalproex Sodium (Depakote Sprinkles) 125 mg BID PO Last administered on 07:46; Start 07/13/16 at 21:00; Stop 07/19/16 at 11:49; Status DC Vitamin D (Vitamin D3) 2,000 unit BIDPCLD PO Last administered on 09/04/16 16: 39; Start 07/14/16 at 12:30 Trazodone HCl (Desyrel) 100 mg QHS PO Last administered on 09/04/16 19:17; Start 07/15/16 at 21:00 Trazodone HCl (Desyrel) 100 mg PRN QHS PO ; Start 07/15/16 at 13:45; Stop at 23:01; Status DC Trazodone HCl (Desyrel) 100 mg PRN QHS PRN PO INSOMNIA Last administered on 23:00; Start 07/15/16 at 23:00 Quetiapine Fumarate (SEROquel) 50 mg 1X ONCE PO Last administered on 07/16/16 00:44; Start 07/16/16 at 00:30; Stop 07/16/16 at 00:31; Status DC Temazepam (Restoril) 30 mg PRN QHS PRN PO INSOMNIA Last administered on 19:04; Start 07/16/16 at 18:30; Stop 08/09/16 at 18:24; Status DC Divalproex Sodium (Depakote Sprinkles) 250 mg BID PO Last administered on 12:20; Start 07/19/16 at 21:00; Stop 07/22/16 at 18:23; Status DC Acetaminophen (Tylenol) 650 mg PRN Q6HRS PRN PO PAIN / TEMP Last administered on 08/24/16 13:04; Start 07/22/16 at 15:30 Divalproex Sodium (Depakote Sprinkles) 375 mg BID PO Last administered on 08:58; Start 07/22/16 at 21:00; Stop 08/04/16 at 17:56; Status DC Melatonin 6 mg QHS PO Last administered on 09/04/16 19:17; Start 07/22/16 at 21:00 Risperidone (Risperdal) 0.25 mg QID PO Last administered on 09/04/16 19:17; Start 07/24/16 at 21:00 Lorazepam (Ativan) 1 mg DAILY IM ; Start 07/27/16 at 09:00; Stop 07/27/16 at 09: 00; Status DC Lorazepam (Ativan) 1 mg 14 IM Last administered on 07/28/16 13:47; Start 07/26 at 15:00; Stop 07/29/16 at 14:13; Status DC Haloperidol Lactate (Haldol) 5 mg 1X ONCE IM Last administered on 07/27/16 16 :15; Start 07/27/16 at 16:15; Stop 07/27/16 at 16:16; Status DC Haloperidol Lactate (Haldol) 5 mg 14 IM Last administered on 07/28/16 13:46; Start 07/28/16 at 14:00; Stop 07/29/16 at 14:13; Status DC Buspirone HCl (Buspar) 10 mg TID PO Last administered on 08/04/16 08:58; Start 07/27/16 at 21:00; Stop 08/04/16 at 17:56; Status DC Trazodone HCl (Desyrel) 12.5 mg TIDWMEALS PO Last administered on 08/03/16 11: 58; Start 07/28/16 at 08:00; Stop 08/03/16 at 13:40; Status DC Fosfomycin Tromethamine (Monurol) 3 gm 1X ONCE PO Last administered on 06:27; Start 07/29/16 at 06:30; Stop 07/29/16 at 06:32; Status DC Trazodone HCl (Desyrel) 25 mg TIDWMEALS PO Last administered on 08/06/16 07:54 ; Start 08/03/16 at 17:00; Stop 08/06/16 at 11:24; Status DC Buspirone HCl (Buspar) 10 mg QID PO Last administered on 09/04/16 19:16; Start 08/04/16 at 21:00 Haloperidol Lactate (Haldol) 5 mg AFTRNOON IM Last administered on 08/17/16 13: 36; Start 08/05/16 at 13:15; Stop 08/19/16 at 18:30; Status DC Lorazepam (Ativan) 0.5 mg AFTRNOON IM Last administered on 08/17/16 13:36; Start 08/05/16 at 13:15; Stop 08/19/16 at 18:30; Status DC Oxcarbazepine (Trileptal) 300 mg BID PO Last administered on 08/11/16 09:48; Start 08/06/16 at 21:00; Stop 08/11/16 at 18:43; Status DC Trazodone HCl (Desyrel) 50 mg BID PO Last administered on 09/04/16 19:17; Start 08/06/16 at 21:00 Trazodone HCl (Desyrel) 50 mg 14 PO Last administered on 09/03/16 14:07; Start 08/06/16 at 14:00 Temazepam (Restoril) 15 mg PRN QHS PRN PO INSOMNIA Last administered on 19:39; Start 08/09/16 at 18:30 Oxcarbazepine (Trileptal) 300 mg TID PO Last administered on 09/04/16 19:17; Start 08/11/16 at 21:00 Haloperidol Decanoate (Haldol Decanoate Im Extended Release) 100 mg QMONTH IM Last administered on 08/13/16 21:04; Start 08/13/16 at 21:00 Haloperidol Lactate (Haldol) 5 mg QODAY IM Last administered on 08/30/16 07:45 ; Start 08/20/16 at 13:00; Stop 08/31/16 at 15:28; Status DC Lorazepam (Ativan) 0.5 mg QODAY IM Last administered on 08/30/16 07:44; Start 08/20/16 at 13:00; Stop 08/31/16 at 15:28; Status DC Nicotine (Nicoderm Cq 14mg) 1 patch DAILY TD Last administered on 09/03/16 08: 33; Start 08/28/16 at 09:00; Stop 09/04/16 at 08:59; Status DC Nicotine (Nicoderm Cq 7mg) 1 patch DAILY TD Last administered on 09/04/16 07: 44; Start 09/04/16 at 09:00; Stop 09/11/16 at 08:59 Haloperidol Lactate (Haldol) 5 mg Q3DAYS IM Last administered on 09/02/16 08: 23; Start 09/02/16 at 09:00; Stop 09/04/16 at 18:24; Status DC Lorazepam (Ativan) 0.5 mg Q3DAYS IM Last administered on 09/02/16 08:24; Start 09/02/16 at 09:00; Stop 09/04/16 at 18:24; Status DC Chlorhexidine Gluconate (Peridex) 15 ml BID SWSP Last administered on 19:17; Start 09/03/16 at 21:00 Penicillin V Potassium (Veetid) 500 mg Q6HRS PO ; Start 09/03/16 at 13:00; Stop 09/03/16 at 13:00; Status DC Penicillin V Potassium (Veetid) 500 mg Q6HRS PO Last administered on 09/04/16 16:39; Start 09/03/16 at 13:00 Haloperidol (Haldol) 5 mg Q3DAYS PO ; Start 09/05/16 at 09:00 Lorazepam (Ativan) 0.5 mg Q3DAYS PO ; Start 09/05/16 at 09:00 Active Scripts Active Lisinopril 20 Mg Tablet 1 Tab PO DAILY NICODERM CQ 21mg (Nicotine) 1 Each Patch.td24 1 Patch TP DAILY Lorazepam 0.5 Mg Tablet 1 Tab PO Q4HRS PRN Hydroxyzine Hcl 25 Mg Tablet 1 Tab PO Q6HRS PRN Benadryl (Diphenhydramine Hcl) 25 Mg Capsule 1 Cap PO Q6HRS CAITLYN BHATT MD September 04, 2016 21:17
--- NOTE | 2016-09-04 21:58 | NUR ---
Behavior Intervention Response and Plan: BIRP Note: Behavior: Assumed Care of patient, patient located in Day Room at shift change. Patient exhibited the following behavior Wandering, Interactive, Disorganized. Brief assessment on rounds of vital signs, medication needs, lab studies, and pain. Treatment plan problems 1 and 2. Intervention: Patient assessed and the following interventions initiated safety checks 15 Minute Checks Cognitive Assessment , Head to toe Assessment , Medications. Response: After interactions and interventions patient responded in the following manner, Calm , Compliant ,Cooperative. Continue to assess behaviors and condition will continue to monitor throughout the shift as needed. Plan: Continue to monitor Master Treatment Plan for patient's progress toward short term goals of Decreased Agitation, Medication Compliance, research physician goals to return to previous living setting vs placement. Continue to assess patient for changes in above assessment. Monitor for medication needs, pain, and safety concerns. Hourly rounding performed to ensure safe environment.
[2016-09-05] MEDS: PENICILLIN V K PO SCH ×4 (05:06→23:38)
[2016-09-05] MEDS: HYDROcodone/APAP 5/325MG 1 TAB TABLET PO PRN ×2 (05:12→17:37)
--- NOTE | 2016-09-05 05:14 | NUR ---
Nursing Note: Pt grimacing this morning when getting up out of bed, pt states "everything hurts". PRN Hydrocodone administered as ordered at this time.
[2016-09-05 05:55] VITALS: BP 151/82
[2016-09-05] MEDS: CITALOPRAM 10 MG TABLET. PO SCH (07:15)
[2016-09-05] MEDS: LISINOPRIL 20 MG TABLET PO SCH (07:15)
[2016-09-05] MEDS: CHOLECALCIFEROL (VITAMIN D3) 1,000 UNIT TABLET PO SCH ×2 (07:15→17:36)
[2016-09-05] MEDS: CHLORHEXIDINE 0.12% 15 ML MOUTHWASH. SWSP SCH ×2 (07:15→19:20)
[2016-09-05] MEDS: NICOTINE 7MG PATCH. TD SCH (07:15)
[2016-09-05] MEDS: DOCUSATE CALCIUM 240 MG CAPSULE PO SCH (07:15)
[2016-09-05] MEDS: risperiDONE 0.25 MG TABLET. PO SCH ×4 (07:16→19:20)
[2016-09-05] MEDS: busPIRone 10 MG TABLET. PO SCH ×4 (07:16→19:20)
[2016-09-05] MEDS: traZODone 50 MG TABLET. PO SCH ×3 (07:16→19:20)
[2016-09-05] MEDS: HALOPERIDOL 5 MG TABLET PO SCH (07:40)
[2016-09-05] MEDS: LORazepam 0.5 MG TABLET PO SCH (07:40)
--- NOTE | 2016-09-05 09:19 | PN ---
DATE: 09/02/2016 PSYCHIATRIC PROGRESS NOTE This is late entry of 09/02/2016, covers elements not covered in my initial note. SUBJECTIVE: The patient has done reasonably well during the day. Previous evening, she appeared somewhat psychotic, had insomnia, received trazodone to help with this, slept through breakfast. REVIEW OF SYSTEMS: No CV, , eye, ENT or pulmonary system symptoms on review. Reliability poor. MENTAL STATUS EXAM: Oriented to herself. Insight, judgment, recent and remote memory, attention, concentration, fund of knowledge poor, consistent with her diagnosis mentioned in my initial note. PLAN: Continue psychotropics. IM Ativan, Haldol are being reduced in frequency. We will see if we can discontinue it in due course. MAN Quinten BHATT MD DR: ALICIA/shanon JOB#: [id number] / [id number]
--- NOTE | 2016-09-05 09:27 | NUR ---
Behavior Intervention Response and Plan: BIRP Note: Behavior: Assumed Care of patient, patient located in Dining Room at shift change. Patient exhibited the following behavior Disorganized, Calm, . Brief assessment on rounds of vital signs, medication needs, lab studies, and pain. Treatment plan problems . Intervention: Patient assessed and the following interventions initiated safety checks 15 Minute Checks Cognitive Assessment , Head to toe Assessment , Medications. Response: After interactions and interventions patient responded in the following manner, Compliant , Disorganized ,Drowsy. Continue to assess behaviors and condition will continue to monitor throughout the shift as needed. Plan: Continue to monitor Master Treatment Plan for patient's progress toward short term goals of Decreased Agitation, Decreased Aggression, detention goals to return to previous living setting vs placement. Continue to assess patient for changes in above assessment. Monitor for medication needs, pain, and safety concerns. Hourly rounding performed to ensure safe environment.
--- NOTE | 2016-09-05 09:30 | PN ---
DATE: 09/03/2016 PSYCHIATRIC PROGRESS NOTE This is late entry of 09/03/2016, covers elements not covered in my initial note. SUBJECTIVE: The patient staffed at a treatment team meeting with the entire team and seen individually. Staff have noted that her breath smells and Dr. rGoves examined the patient, started her on penicillin for an infected tooth. UA was negative. REVIEW OF SYSTEMS: No CV, , pulmonary, eye system symptoms on review. Previous evening, she was banging on the windows, looking for her family. MENTAL STATUS EXAM: Oriented to herself. Insight, judgment, recent and remote memory, attention, concentration, fund of knowledge poor, consistent with her diagnosis mentioned in my initial note. PLAN: Continue psychotropics mentioned in my initial note. May stop the IM Haldol, Ativan in a day or so. MAN Quinten BHATT MD DR: ALICIA/shanon JOB#: [id number] / [id number]
[2016-09-05 15:50] VITALS: BP 147/77
--- NOTE | 2016-09-05 18:04 | NUR ---
pt started oral ativan/ haldol instead of IM. restless and intrusive before lunch. zydis given. Pt again restless and wandering prior to supper, also c/o pain. Zydis and lortab given. pt has been compliant with meds and cares. redirectable.
[2016-09-05] MEDS: MELATONIN 3 MG TABLET PO SCH (19:19)
[2016-09-05] MEDS: MIRTAZAPINE 15 MG TABLET PO SCH (19:20)
[2016-09-05] MEDS: traZODone 100 MG TABLET. PO SCH (19:20)
--- NOTE | 2016-09-05 22:41 | PDOC ---
Exam Yaya Demential Exam: Yaya Note: Please also refer to the separate dictated note~for this date of service dictated separately.~Patient seen individually. Discussed the patient with Nursing staff reviewed the chart.~Reviewed interim history and current functioning. Reviewed vital signs,~Labs/ Radiology~and current medications noted below. Continue current treatment with the changes noted in the dictated addendum note Assessment: Vital Signs: Vital Signs Date Time Temp Pulse Resp B/P (MAP) Pulse Ox O2 Delivery O2 Flow Rate FiO2 09/05/16 15:50 98.5 67 19 147/77 (100) 98 09/05/16 06:12 Room Air I&O Intake and Output 09/05/16 07:00 Intake Total 840 ml Balance 840 ml Intake Oral 840 ml Current Medications: Meds: Current Medications Diphenhydramine HCl (Benadryl) 25 mg Q6HRS PO ; Start 07/01/16 at 18:00; Stop at 18:00; Status DC Hydroxyzine HCl (Atarax) 25 mg PRN Q6HRS PRN PO ITCHING Last administered on 01:19; Start 07/01/16 at 15:15; Stop 07/06/16 at 04:21; Status DC Lisinopril (Prinivil) 20 mg DAILY PO Last administered on 09/05/16 07:15; Start 07/02/16 at 09:00 Lorazepam (Ativan) 0.5 mg PRN Q4HRS PRN PO ANXIETY / AGITATION Last administered on 07/02/16 21:07; Start 07/01/16 at 15:15; Stop 07/02/16 at 21:44 ; Status DC Nicotine (Nicoderm Cq 21mg) 1 patch DAILY TD Last administered on 08/27/16 08: 33; Start 07/02/16 at 09:00; Stop 08/27/16 at 13:53; Status DC Lorazepam (Ativan) 0.5 mg PRN Q4HRS PRN IV ANXIETY / AGITATION; Start 07/01/16 at 15:15; Stop 07/01/16 at 19:14; Status DC Diphenhydramine HCl (Benadryl) 25 mg PRN Q6HRS PRN IVP ITCHING; Start 3/22/17 at 15:15; Stop 07/01/16 at 19:14; Status DC Haloperidol Lactate (Haldol) 5 mg PRN Q6HRS PRN IM AGITATION; Start 07/01/16 at 15:15; Stop 07/01/16 at 19:14; Status DC Diphenhydramine HCl (Benadryl) 25 mg PRN Q6HRS PRN PO ITCHING Last administered on 07/01/16 20:56; Start 07/01/16 at 18:00 Acetaminophen/ Hydrocodone Bitart (Lortab 5/325) 1 tab PRN BID PRN PO PAIN Last administered on 09/05/16 17:37; Start 07/02/16 at 21:45 Olanzapine (Zyprexa Zydis) 2.5 mg PRN Q2HR PRN PO PSYCHOSIS Last administered on 09/05/16 17:36; Start 07/02/16 at 21:45 Mirtazapine (Remeron) 15 mg QHS PO Last administered on 09/05/16 19:20; Start 07/03/16 at 21:00 Citalopram Hydrobromide (Celexa) 10 mg DAILY PO Last administered on 09/05/16 07:15; Start 07/03/16 at 09:00 Risperidone (Risperdal) 0.25 mg BID PO Last administered on 07/10/16 08:54; Start 07/03/16 at 21:00; Stop 07/10/16 at 15:18; Status DC Docusate Calcium (Surfak) 240 mg DAILY PO Last administered on 09/05/16 07:15 ; Start 07/04/16 at 21:00 Magnesium Hydroxide (Milk Of Magnesia) 2,400 mg PRN QHS PRN PO CONSTIPATION Last administered on 08/30/16 17:06; Start 07/04/16 at 18:15 Trazodone HCl (Desyrel) 50 mg QHS PO Last administered on 07/14/16 20:10; Start 07/05/16 at 21:00; Stop 07/15/16 at 13:52; Status DC Trazodone HCl (Desyrel) 50 mg PRN QHS PRN PO INSOMNIA Last administered on 21:27; Start 07/05/16 at 20:45; Stop 07/15/16 at 13:52; Status DC Hydroxyzine HCl (Atarax) 50 mg PRN Q2HR PRN PO Psychosis Last administered on 16:56; Start 07/06/16 at 04:30 Fentanyl (Duragesic 12mcg/ Hr) 1 patch Q3DAYS TD Last administered on 08:36; Start 07/08/16 at 18:30 Risperidone (Risperdal) 0.25 mg TID PO Last administered on 07/24/16 13:20; Start 07/10/16 at 21:00; Stop 07/24/16 at 18:29; Status DC Buspirone HCl (Buspar) 5 mg TID PO Last administered on 07/13/16 12:28; Start 07/10/16 at 21:00; Stop 07/13/16 at 15:32; Status DC Buspirone HCl (Buspar) 10 mg BID PO Last administered on 07/27/16 09:32; Start 07/13/16 at 21:00; Stop 07/27/16 at 18:29; Status DC Divalproex Sodium (Depakote Sprinkles) 125 mg BID PO Last administered on 07:46; Start 07/13/16 at 21:00; Stop 07/19/16 at 11:49; Status DC Vitamin D (Vitamin D3) 2,000 unit BIDPCLD PO Last administered on 09/05/16 17: 36; Start 07/14/16 at 12:30 Trazodone HCl (Desyrel) 100 mg QHS PO Last administered on 09/05/16 19:20; Start 07/15/16 at 21:00 Trazodone HCl (Desyrel) 100 mg PRN QHS PO ; Start 07/15/16 at 13:45; Stop at 23:01; Status DC Trazodone HCl (Desyrel) 100 mg PRN QHS PRN PO INSOMNIA Last administered on 23:00; Start 07/15/16 at 23:00 Quetiapine Fumarate (SEROquel) 50 mg 1X ONCE PO Last administered on 07/16/16 00:44; Start 07/16/16 at 00:30; Stop 07/16/16 at 00:31; Status DC Temazepam (Restoril) 30 mg PRN QHS PRN PO INSOMNIA Last administered on 19:04; Start 07/16/16 at 18:30; Stop 08/09/16 at 18:24; Status DC Divalproex Sodium (Depakote Sprinkles) 250 mg BID PO Last administered on 12:20; Start 07/19/16 at 21:00; Stop 07/22/16 at 18:23; Status DC Acetaminophen (Tylenol) 650 mg PRN Q6HRS PRN PO PAIN / TEMP Last administered on 08/24/16 13:04; Start 07/22/16 at 15:30 Divalproex Sodium (Depakote Sprinkles) 375 mg BID PO Last administered on 08:58; Start 07/22/16 at 21:00; Stop 08/04/16 at 17:56; Status DC Melatonin 6 mg QHS PO Last administered on 09/05/16 19:19; Start 07/22/16 at 21:00 Risperidone (Risperdal) 0.25 mg QID PO Last administered on 09/05/16 19:20; Start 07/24/16 at 21:00 Lorazepam (Ativan) 1 mg DAILY IM ; Start 07/27/16 at 09:00; Stop 07/27/16 at 09: 00; Status DC Lorazepam (Ativan) 1 mg 14 IM Last administered on 07/28/16 13:47; Start 07/26 at 15:00; Stop 07/29/16 at 14:13; Status DC Haloperidol Lactate (Haldol) 5 mg 1X ONCE IM Last administered on 07/27/16 16 :15; Start 07/27/16 at 16:15; Stop 07/27/16 at 16:16; Status DC Haloperidol Lactate (Haldol) 5 mg 14 IM Last administered on 07/28/16 13:46; Start 07/28/16 at 14:00; Stop 07/29/16 at 14:13; Status DC Buspirone HCl (Buspar) 10 mg TID PO Last administered on 08/04/16 08:58; Start 07/27/16 at 21:00; Stop 08/04/16 at 17:56; Status DC Trazodone HCl (Desyrel) 12.5 mg TIDWMEALS PO Last administered on 08/03/16 11: 58; Start 07/28/16 at 08:00; Stop 08/03/16 at 13:40; Status DC Fosfomycin Tromethamine (Monurol) 3 gm 1X ONCE PO Last administered on 06:27; Start 07/29/16 at 06:30; Stop 07/29/16 at 06:32; Status DC Trazodone HCl (Desyrel) 25 mg TIDWMEALS PO Last administered on 08/06/16 07:54 ; Start 08/03/16 at 17:00; Stop 08/06/16 at 11:24; Status DC Buspirone HCl (Buspar) 10 mg QID PO Last administered on 09/05/16 19:20; Start 08/04/16 at 21:00 Haloperidol Lactate (Haldol) 5 mg AFTRNOON IM Last administered on 08/17/16 13: 36; Start 08/05/16 at 13:15; Stop 08/19/16 at 18:30; Status DC Lorazepam (Ativan) 0.5 mg AFTRNOON IM Last administered on 08/17/16 13:36; Start 08/05/16 at 13:15; Stop 08/19/16 at 18:30; Status DC Oxcarbazepine (Trileptal) 300 mg BID PO Last administered on 08/11/16 09:48; Start 08/06/16 at 21:00; Stop 08/11/16 at 18:43; Status DC Trazodone HCl (Desyrel) 50 mg BID PO Last administered on 09/05/16 19:20; Start 08/06/16 at 21:00 Trazodone HCl (Desyrel) 50 mg 14 PO Last administered on 09/05/16 12:15; Start 08/06/16 at 14:00 Temazepam (Restoril) 15 mg PRN QHS PRN PO INSOMNIA Last administered on 19:39; Start 08/09/16 at 18:30 Oxcarbazepine (Trileptal) 300 mg TID PO Last administered on 09/05/16 19:19; Start 08/11/16 at 21:00 Haloperidol Decanoate (Haldol Decanoate Im Extended Release) 100 mg QMONTH IM Last administered on 08/13/16 21:04; Start 08/13/16 at 21:00 Haloperidol Lactate (Haldol) 5 mg QODAY IM Last administered on 08/30/16 07:45 ; Start 08/20/16 at 13:00; Stop 08/31/16 at 15:28; Status DC Lorazepam (Ativan) 0.5 mg QODAY IM Last administered on 08/30/16 07:44; Start 08/20/16 at 13:00; Stop 08/31/16 at 15:28; Status DC Nicotine (Nicoderm Cq 14mg) 1 patch DAILY TD Last administered on 09/03/16 08: 33; Start 08/28/16 at 09:00; Stop 09/04/16 at 08:59; Status DC Nicotine (Nicoderm Cq 7mg) 1 patch DAILY TD Last administered on 09/05/16 07: 15; Start 09/04/16 at 09:00; Stop 09/11/16 at 08:59 Haloperidol Lactate (Haldol) 5 mg Q3DAYS IM Last administered on 09/02/16 08: 23; Start 09/02/16 at 09:00; Stop 09/04/16 at 18:24; Status DC Lorazepam (Ativan) 0.5 mg Q3DAYS IM Last administered on 09/02/16 08:24; Start 09/02/16 at 09:00; Stop 09/04/16 at 18:24; Status DC Chlorhexidine Gluconate (Peridex) 15 ml BID SWSP Last administered on 19:20; Start 09/03/16 at 21:00 Penicillin V Potassium (Veetid) 500 mg Q6HRS PO ; Start 09/03/16 at 13:00; Stop 09/03/16 at 13:00; Status DC Penicillin V Potassium (Veetid) 500 mg Q6HRS PO Last administered on 09/05/16 17:50; Start 09/03/16 at 13:00 Haloperidol (Haldol) 5 mg Q3DAYS PO Last administered on 5/27/17at 07:40; Start 09/05/16 at 09:00 Lorazepam (Ativan) 0.5 mg Q3DAYS PO Last administered on 09/05/16t 07:40; Start 09/05/16 at 09:00 Active Scripts Active Lisinopril 20 Mg Tablet 1 Tab PO DAILY NICODERM CQ 21mg (Nicotine) 1 Each Patch.td24 1 Patch TP DAILY Lorazepam 0.5 Mg Tablet 1 Tab PO Q4HRS PRN Hydroxyzine Hcl 25 Mg Tablet 1 Tab PO Q6HRS PRN Benadryl (Diphenhydramine Hcl) 25 Mg Capsule 1 Cap PO Q6HRS Diagnosis: Problems: (1) Anxiety disorder (2) Impulse control disorder (3) Dementia, vascular, with delusions (4) Dementia, vascular, with depression (5) Dementia in Alzheimer's disease with delusions (6) Dementia in Alzheimer's disease with depression CAITLYN BHATT MD September 05, 2016 22:41
--- NOTE | 2016-09-05 23:47 | NUR ---
Behavior Intervention Response and Plan: BIRP Note: Behavior: Assumed Care of patient, patient located in Hallway at shift change. Patient exhibited the following behavior Wandering, Calm, Disorganized. Brief assessment on rounds of vital signs, medication needs, lab studies, and pain. Treatment plan problems 1 and 2. Intervention: Patient assessed and the following interventions initiated safety checks 15 Minute Checks Cognitive Assessment , Head to toe Assessment , Medications. Response: After interactions and interventions patient responded in the following manner, Calm , Compliant ,Cooperative. Continue to assess behaviors and condition will continue to monitor throughout the shift as needed. Plan: Continue to monitor Master Treatment Plan for patient's progress toward short term goals of Decreased Agitation, Decreased Aggression, continuous churn buttermaker goals to return to previous living setting vs placement. Continue to assess patient for changes in above assessment. Monitor for medication needs, pain, and safety concerns. Hourly rounding performed to ensure safe environment.
[2016-09-06] MEDS: PENICILLIN V K PO SCH ×5 (05:18→19:38)
[2016-09-06 05:54] VITALS: BP 140/87
[2016-09-06] MEDS: CITALOPRAM 10 MG TABLET. PO SCH (07:14)
[2016-09-06] MEDS: DOCUSATE CALCIUM 240 MG CAPSULE PO SCH (07:14)
[2016-09-06] MEDS: NICOTINE 7MG PATCH. TD SCH (07:14)
[2016-09-06] MEDS: risperiDONE 0.25 MG TABLET. PO SCH ×5 (07:14→19:36)
[2016-09-06] MEDS: busPIRone 10 MG TABLET. PO SCH ×5 (07:14→19:37)
[2016-09-06] MEDS: traZODone 50 MG TABLET. PO SCH ×3 (07:14→19:38)
[2016-09-06] MEDS: CHOLECALCIFEROL (VITAMIN D3) 1,000 UNIT TABLET PO SCH ×3 (07:15→17:36)
[2016-09-06] MEDS: LISINOPRIL 20 MG TABLET PO SCH (07:15)
[2016-09-06] MEDS: CHLORHEXIDINE 0.12% 15 ML MOUTHWASH. SWSP SCH ×2 (07:25→21:00)
[2016-09-06] MEDS: fentaNYL 12MCG/HR 1 PATCH PATCH TD SCH (07:26)
--- NOTE | 2016-09-06 09:22 | NUR ---
Behavior Intervention Response and Plan: BIRP Note: Behavior: Assumed Care of patient, patient located in Dining Room at shift change. Patient exhibited the following behavior Disorganized, Calm, . Brief assessment on rounds of vital signs, medication needs, lab studies, and pain. Treatment plan problems . Intervention: Patient assessed and the following interventions initiated safety checks 15 Minute Checks Cognitive Assessment , Head to toe Assessment , Medications. Response: After interactions and interventions patient responded in the following manner, Compliant , Disorganized ,Drowsy. Continue to assess behaviors and condition will continue to monitor throughout the shift as needed. Plan: Continue to monitor Master Treatment Plan for patient's progress toward short term goals of Decreased Agitation, Decreased Aggression, longterm goals to return to previous living setting vs placement. Continue to assess patient for changes in above assessment. Monitor for medication needs, pain, and safety concerns. Hourly rounding performed to ensure safe environment.
[2016-09-06 16:13] VITALS: BP 152/81
--- NOTE | 2016-09-06 16:56 | NUR ---
pt up adl in halls. intrusive at times. restless. irritable at times. resistance to redirection at times. PRN's utilized.
[2016-09-06] MEDS: HYDROcodone/APAP 5/325MG 1 TAB TABLET PO PRN ×2 (17:36→18:53)
[2016-09-06] MEDS: MIRTAZAPINE 15 MG TABLET PO SCH (19:36)
[2016-09-06] MEDS: traZODone 100 MG TABLET. PO SCH (19:37)
[2016-09-06] MEDS: MELATONIN 3 MG TABLET PO SCH (19:38)
[2016-09-06] MEDS: TEMAZEPAM 15 MG CAPSULE PO PRN (19:55)
--- NOTE | 2016-09-06 21:01 | PDOC ---
Exam Yaya Demential Exam: Yaay Note: Please also refer to the separate dictated note~for this date of service dictated separately.~Patient seen individually. Discussed the patient with Nursing staff reviewed the chart.~Reviewed interim history and current functioning. Reviewed vital signs,~Labs/ Radiology~and current medications noted below. Continue current treatment with the changes noted in the dictated addendum note Assessment: Vital Signs: Vital Signs Date Time Temp Pulse Resp B/P (MAP) Pulse Ox O2 Delivery O2 Flow Rate FiO2 09/06/16 16:13 97.5 64 18 152/81 (104) 97 Room Air I&O Intake and Output 09/06/16 07:00 Intake Total 1440 ml Balance 1440 ml Intake Oral 1440 ml Current Medications: Meds: Current Medications Diphenhydramine HCl (Benadryl) 25 mg Q6HRS PO ; Start 07/01/16 at 18:00; Stop at 18:00; Status DC Hydroxyzine HCl (Atarax) 25 mg PRN Q6HRS PRN PO ITCHING Last administered on 01:19; Start 07/01/16 at 15:15; Stop 07/06/16 at 04:21; Status DC Lisinopril (Prinivil) 20 mg DAILY PO Last administered on 09/06/16 07:15; Start 07/02/16 at 09:00 Lorazepam (Ativan) 0.5 mg PRN Q4HRS PRN PO ANXIETY / AGITATION Last administered on 07/02/16 21:07; Start 07/01/16 at 15:15; Stop 07/02/16 at 21:44 ; Status DC Nicotine (Nicoderm Cq 21mg) 1 patch DAILY TD Last administered on 08/27/16 08: 33; Start 07/02/16 at 09:00; Stop 08/27/16 at 13:53; Status DC Lorazepam (Ativan) 0.5 mg PRN Q4HRS PRN IV ANXIETY / AGITATION; Start 07/01/16 at 15:15; Stop 07/01/16 at 19:14; Status DC Diphenhydramine HCl (Benadryl) 25 mg PRN Q6HRS PRN IVP ITCHING; Start 07/01/16 at 15:15; Stop 07/01/16 at 19:14; Status DC Haloperidol Lactate (Haldol) 5 mg PRN Q6HRS PRN IM AGITATION; Start 07/01/16 at 15:15; Stop 07/01/16 at 19:14; Status DC Diphenhydramine HCl (Benadryl) 25 mg PRN Q6HRS PRN PO ITCHING Last administered on 07/01/16 20:56; Start 07/01/16 at 18:00 Acetaminophen/ Hydrocodone Bitart (Lortab 5/325) 1 tab PRN BID PRN PO PAIN Last administered on 09/06/16 17:36; Start 07/02/16 at 21:45 Olanzapine (Zyprexa Zydis) 2.5 mg PRN Q2HR PRN PO PSYCHOSIS Last administered on 09/06/16 19:55; Start 07/02/16 at 21:45 Mirtazapine (Remeron) 15 mg QHS PO Last administered on 09/06/16 19:36; Start 07/03/16 at 21:00 Citalopram Hydrobromide (Celexa) 10 mg DAILY PO Last administered on 09/06/16 07:14; Start 07/03/16 at 09:00 Risperidone (Risperdal) 0.25 mg BID PO Last administered on 07/10/16 08:54; Start 07/03/16 at 21:00; Stop 07/10/16 at 15:18; Status DC Docusate Calcium (Surfak) 240 mg DAILY PO Last administered on 09/06/16 07:14 ; Start 07/04/16 at 21:00 Magnesium Hydroxide (Milk Of Magnesia) 2,400 mg PRN QHS PRN PO CONSTIPATION Last administered on 08/30/16 17:06; Start 07/04/16 at 18:15 Trazodone HCl (Desyrel) 50 mg QHS PO Last administered on 07/14/16 20:10; Start 07/05/16 at 21:00; Stop 07/15/16 at 13:52; Status DC Trazodone HCl (Desyrel) 50 mg PRN QHS PRN PO INSOMNIA Last administered on 21:27; Start 07/05/16 at 20:45; Stop 07/15/16 at 13:52; Status DC Hydroxyzine HCl (Atarax) 50 mg PRN Q2HR PRN PO Psychosis Last administered on 16:56; Start 07/06/16 at 04:30 Fentanyl (Duragesic 12mcg/ Hr) 1 patch Q3DAYS TD Last administered on 07:26; Start 07/08/16 at 18:30 Risperidone (Risperdal) 0.25 mg TID PO Last administered on 07/24/16 13:20; Start 07/10/16 at 21:00; Stop 07/24/16 at 18:29; Status DC Buspirone HCl (Buspar) 5 mg TID PO Last administered on 07/13/16 12:28; Start 07/10/16 at 21:00; Stop 07/13/16 at 15:32; Status DC Buspirone HCl (Buspar) 10 mg BID PO Last administered on 07/27/16 09:32; Start 07/13/16 at 21:00; Stop 07/27/16 at 18:29; Status DC Divalproex Sodium (Depakote Sprinkles) 125 mg BID PO Last administered on 07:46; Start 07/13/16 at 21:00; Stop 07/19/16 at 11:49; Status DC Vitamin D (Vitamin D3) 2,000 unit BIDPCLD PO Last administered on 09/06/16 07: 15; Start 07/14/16 at 12:30 Trazodone HCl (Desyrel) 100 mg QHS PO Last administered on 09/06/16 19:37; Start 07/15/16 at 21:00 Trazodone HCl (Desyrel) 100 mg PRN QHS PO ; Start 07/15/16 at 13:45; Stop at 23:01; Status DC Trazodone HCl (Desyrel) 100 mg PRN QHS PRN PO INSOMNIA Last administered on 23:00; Start 07/15/16 at 23:00 Quetiapine Fumarate (SEROquel) 50 mg 1X ONCE PO Last administered on 07/16/16 00:44; Start 07/16/16 at 00:30; Stop 07/16/16 at 00:31; Status DC Temazepam (Restoril) 30 mg PRN QHS PRN PO INSOMNIA Last administered on 19:04; Start 07/16/16 at 18:30; Stop 08/09/16 at 18:24; Status DC Divalproex Sodium (Depakote Sprinkles) 250 mg BID PO Last administered on 12:20; Start 07/19/16 at 21:00; Stop 07/22/16 at 18:23; Status DC Acetaminophen (Tylenol) 650 mg PRN Q6HRS PRN PO PAIN / TEMP Last administered on 08/24/16 13:04; Start 07/22/16 at 15:30 Divalproex Sodium (Depakote Sprinkles) 375 mg BID PO Last administered on 08:58; Start 07/22/16 at 21:00; Stop 08/04/16 at 17:56; Status DC Melatonin 6 mg QHS PO Last administered on 09/06/16 19:38; Start 07/22/16 at 21:00 Risperidone (Risperdal) 0.25 mg QID PO Last administered on 09/06/16 19:36; Start 07/24/16 at 21:00 Lorazepam (Ativan) 1 mg DAILY IM ; Start 07/27/16 at 09:00; Stop 07/27/16 at 09: 00; Status DC Lorazepam (Ativan) 1 mg 14 IM Last administered on 07/28/16 13:47; Start 07/26 at 15:00; Stop 07/29/16 at 14:13; Status DC Haloperidol Lactate (Haldol) 5 mg 1X ONCE IM Last administered on 07/27/16 16 :15; Start 07/27/16 at 16:15; Stop 07/27/16 at 16:16; Status DC Haloperidol Lactate (Haldol) 5 mg 14 IM Last administered on 07/28/16 13:46; Start 07/28/16 at 14:00; Stop 07/29/16 at 14:13; Status DC Buspirone HCl (Buspar) 10 mg TID PO Last administered on 08/04/16 08:58; Start 07/27/16 at 21:00; Stop 08/04/16 at 17:56; Status DC Trazodone HCl (Desyrel) 12.5 mg TIDWMEALS PO Last administered on 08/03/16 11: 58; Start 07/28/16 at 08:00; Stop 08/03/16 at 13:40; Status DC Fosfomycin Tromethamine (Monurol) 3 gm 1X ONCE PO Last administered on 06:27; Start 07/29/16 at 06:30; Stop 07/29/16 at 06:32; Status DC Trazodone HCl (Desyrel) 25 mg TIDWMEALS PO Last administered on 08/06/16 07:54 ; Start 08/03/16 at 17:00; Stop 08/06/16 at 11:24; Status DC Buspirone HCl (Buspar) 10 mg QID PO Last administered on 09/06/16 19:37; Start 08/04/16 at 21:00 Haloperidol Lactate (Haldol) 5 mg AFTRNOON IM Last administered on 08/17/16 13: 36; Start 08/05/16 at 13:15; Stop 08/19/16 at 18:30; Status DC Lorazepam (Ativan) 0.5 mg AFTRNOON IM Last administered on 08/17/16 13:36; Start 08/05/16 at 13:15; Stop 08/19/16 at 18:30; Status DC Oxcarbazepine (Trileptal) 300 mg BID PO Last administered on 08/11/16 09:48; Start 08/06/16 at 21:00; Stop 08/11/16 at 18:43; Status DC Trazodone HCl (Desyrel) 50 mg BID PO Last administered on 09/06/16 19:38; Start 08/06/16 at 21:00 Trazodone HCl (Desyrel) 50 mg 14 PO Last administered on 09/06/16 11:56; Start 08/06/16 at 14:00 Temazepam (Restoril) 15 mg PRN QHS PRN PO INSOMNIA Last administered on 19:55; Start 08/09/16 at 18:30 Oxcarbazepine (Trileptal) 300 mg TID PO Last administered on 09/06/16 19:38; Start 08/11/16 at 21:00 Haloperidol Decanoate (Haldol Decanoate Im Extended Release) 100 mg QMONTH IM Last administered on 08/13/16 21:04; Start 08/13/16 at 21:00 Haloperidol Lactate (Haldol) 5 mg QODAY IM Last administered on 08/30/16 07:45 ; Start 08/20/16 at 13:00; Stop 08/31/16 at 15:28; Status DC Lorazepam (Ativan) 0.5 mg QODAY IM Last administered on 08/30/16 07:44; Start 08/20/16 at 13:00; Stop 08/31/16 at 15:28; Status DC Nicotine (Nicoderm Cq 14mg) 1 patch DAILY TD Last administered on 09/03/16 08: 33; Start 08/28/16 at 09:00; Stop 09/04/16 at 08:59; Status DC Nicotine (Nicoderm Cq 7mg) 1 patch DAILY TD Last administered on 09/06/16 07: 14; Start 09/04/16 at 09:00; Stop 09/11/16 at 08:59 Haloperidol Lactate (Haldol) 5 mg Q3DAYS IM Last administered on 09/02/16 08: 23; Start 09/02/16 at 09:00; Stop 09/04/16 at 18:24; Status DC Lorazepam (Ativan) 0.5 mg Q3DAYS IM Last administered on 09/02/16 08:24; Start 09/02/16 at 09:00; Stop 09/04/16 at 18:24; Status DC Chlorhexidine Gluconate (Peridex) 15 ml BID SWSP Last administered on 07:25; Start 09/03/16 at 21:00 Penicillin V Potassium (Veetid) 500 mg Q6HRS PO ; Start 09/03/16 at 13:00; Stop 09/03/16 at 13:00; Status DC Penicillin V Potassium (Veetid) 500 mg Q6HRS PO Last administered on 09/06/16 19:38; Start 09/03/16 at 13:00 Haloperidol (Haldol) 5 mg Q3DAYS PO Last administered on 09/05/16 07:40; Start 09/05/16 at 09:00 Lorazepam (Ativan) 0.5 mg Q3DAYS PO Last administered on 09/05/16t 07:40; Start 09/05/16 at 09:00 Active Scripts Active Lisinopril 20 Mg Tablet 1 Tab PO DAILY NICODERM CQ 21mg (Nicotine) 1 Each Patch.td24 1 Patch TP DAILY Lorazepam 0.5 Mg Tablet 1 Tab PO Q4HRS PRN Hydroxyzine Hcl 25 Mg Tablet 1 Tab PO Q6HRS PRN Benadryl (Diphenhydramine Hcl) 25 Mg Capsule 1 Cap PO Q6HRS CAITLYN BHATT MD September 06, 2016 21:01
--- NOTE | 2016-09-06 23:02 | NUR ---
Behavior Intervention Response and Plan: BIRP Note: Behavior: Assumed Care of patient, patient located in Day Room at shift change. Patient exhibited the following behavior Disorganized, Irritable, Defensive, intrusive, looking for her purse. Brief assessment on rounds of vital signs, medication needs, lab studies, and pain. Treatment plan problems 1-2. Intervention: Patient assessed and the following interventions initiated safety checks 15 Minute Checks Cognitive Assessment , Head to toe Assessment , Medications. Response: After interactions and interventions patient responded in the following manner, Restless , Cooperative ,Compliant. Continue to assess behaviors and condition will continue to monitor throughout the shift as needed. Plan: Continue to monitor Master Treatment Plan for patient's progress toward short term goals of Decreased Agitation, Improved Mood, usp goals to return to previous living setting vs placement. Continue to assess patient for changes in above assessment. Monitor for medication needs, pain, and safety concerns. Hourly rounding performed to ensure safe environment.
--- NOTE | 2016-09-06 23:34 | PN ---
DATE: 09/04/2016 This is a late entry for 09/04/2016 and cover elements not covered in my initial note. SUBJECTIVE: Per nursing report, the patient slept poorly the previous night, received trazodone. She is somewhat sedated during the day on 09/04/2016, slept until about lunchtime. Prospective nursing homes have indicated that they will not be able to accept the patient if she is on scheduled IM Haldol and Ativan, and we will change change this to p.o. 5 mg Haldol, 0.5 mg Ativan at current schedule of . She has been confused, not aggressive. REVIEW OF SYSTEMS: No CV, , pulmonary, eye, ENT system symptoms on review. Reliability poor. MENTAL STATUS EXAM: Oriented to herself. Insight, judgment, recent and remote memory, attention, concentration, fund of knowledge poor, consistent with her diagnosis mentioned in my initial note. PLAN: Continue current psychotropics with changes noted above, current psychotropics mentioned in my initial note. CAITLYN BHATT MD DR: ALICIA/shanon JOB#: [id number] / [id number]
--- NOTE | 2016-09-07 00:50 | PN ---
DATE: 09/05/2016 PSYCHIATRIC PROGRESS NOTE This is a late entry 09/05/2016 covers elements not covered in my initial note. The patient has been intermittently agitated, received Zyprexa at lunch p.r.n., was pushing another demented patient, did redirect. REVIEW OF SYSTEMS: No CV, , pulmonary, eye, ENT system symptoms on review. Reliability poor. MENTAL STATUS EXAM: Oriented to herself. Insight, judgment, recent and remote memory, attention, concentration, fund of knowledge poor, consistent with her diagnosis mentioned in my initial note. PLAN: Continue psychotropics mentioned in my initial note, IM Haldol, Ativan has been changed to p.o. She has not been speaking in [place], which is what usually precedes her increasing agitation, so this is a good sign. MAN Quinten BHATT MD DR: ALICIA/shanon JOB#: [id number] / [id number]
[2016-09-07 06:06] VITALS: BP 143/81
[2016-09-07] MEDS: PENICILLIN V K PO SCH ×3 (06:09→17:02)
[2016-09-07] MEDS: CITALOPRAM 10 MG TABLET. PO SCH (08:56)
[2016-09-07] MEDS: traZODone 50 MG TABLET. PO SCH ×3 (08:56→19:11)
[2016-09-07] MEDS: DOCUSATE CALCIUM 240 MG CAPSULE PO SCH (08:56)
[2016-09-07] MEDS: risperiDONE 0.25 MG TABLET. PO SCH ×4 (08:56→19:10)
[2016-09-07] MEDS: busPIRone 10 MG TABLET. PO SCH ×4 (08:56→19:11)
[2016-09-07] MEDS: LISINOPRIL 20 MG TABLET PO SCH (08:57)
[2016-09-07] MEDS: CHLORHEXIDINE 0.12% 15 ML MOUTHWASH. SWSP SCH ×2 (08:57→19:10)
[2016-09-07] MEDS: NICOTINE 7MG PATCH. TD SCH (08:57)
--- NOTE | 2016-09-07 10:50 | NUR ---
SW engaged pt one on one in the hallway this am after group, as pt declined to join in the group. Pt states she is having an okay day. Pt smiled to this newswriter as she was talking about going outside today. Pt states she doesn't think she has a lot to do today but will need to go fix dinner sometime. Pt said "okay, well then I see you later."
--- NOTE | 2016-09-07 12:26 | NUR ---
Behavior Intervention Response and Plan: BIRP Note: Behavior: Assumed Care of patient, patient located in Day Room at shift change. Patient exhibited the following behavior Wandering, Compliant, Delusions. Brief assessment on rounds of vital signs, medication needs, lab studies, and pain. Treatment plan problems . Intervention: Patient assessed and the following interventions initiated safety checks 15 Minute Checks Cognitive Assessment , Head to toe Assessment , Medications. Response: After interactions and interventions patient responded in the following manner, Calm , Compliant ,Cooperative. Continue to assess behaviors and condition will continue to monitor throughout the shift as needed. Plan: Continue to monitor Master Treatment Plan for patient's progress toward short term goals of Decreased Agitation, Improved Mood, halfway goals to return to previous living setting vs placement. Continue to assess patient for changes in above assessment. Monitor for medication needs, pain, and safety concerns. Hourly rounding performed to ensure safe environment.
[2016-09-07] MEDS: CHOLECALCIFEROL (VITAMIN D3) 1,000 UNIT TABLET PO SCH ×2 (12:57→17:02)
--- NOTE | 2016-09-07 14:00 | NUR ---
THERAPEUTIC RECREATION GROUP NOTE TITLE :: Ice Cream and Program ACTIVITY : Social Events and Holidays GOAL : Facilitate sense of belonging and well-being, elevate mood, increase socialization and social skills. Incorporate traditions. DURATION : 120 Minutes RESPONSE : Full participation. Pt. needed redirection and repeat prompting throughout the afternoon but was agreeable and calm. She was confused and called for her son two times. She ate ice cream and participated in the program. She stayed after and conversed with peers while listening to music. She got up and danced towards the end, with a smile on her face.
[2016-09-07 15:41] VITALS: BP 119/78
[2016-09-07] MEDS: MIRTAZAPINE 15 MG TABLET PO SCH (19:10)
[2016-09-07] MEDS: traZODone 100 MG TABLET. PO SCH (19:10)
[2016-09-07] MEDS: MELATONIN 3 MG TABLET PO SCH (19:11)
--- NOTE | 2016-09-07 20:53 | PDOC ---
Exam Yaya Demential Exam: Yaya Note: Please also refer to the separate dictated note~for this date of service dictated separately.~Patient seen individually. Discussed the patient with Nursing staff reviewed the chart.~Reviewed interim history and current functioning. Reviewed vital signs,~Labs/ Radiology~and current medications noted below. Continue current treatment with the changes noted in the dictated addendum note Assessment: Vital Signs: Vital Signs Date Time Temp Pulse Resp B/P (MAP) Pulse Ox O2 Delivery O2 Flow Rate FiO2 09/07/16 15:41 63 20 119/78 (92) 95 09/07/16 06:06 98.4 09/06/16 16:13 Room Air I&O Intake and Output 09/07/16 07:00 Intake Total 780 ml Balance 780 ml Intake Oral 780 ml Current Medications: Meds: Current Medications Diphenhydramine HCl (Benadryl) 25 mg Q6HRS PO ; Start 07/01/16 at 18:00; Stop at 18:00; Status DC Hydroxyzine HCl (Atarax) 25 mg PRN Q6HRS PRN PO ITCHING Last administered on 01:19; Start 07/01/16 at 15:15; Stop 07/06/16 at 04:21; Status DC Lisinopril (Prinivil) 20 mg DAILY PO Last administered on 09/07/16 08:57; Start 07/02/16 at 09:00 Lorazepam (Ativan) 0.5 mg PRN Q4HRS PRN PO ANXIETY / AGITATION Last administered on 07/02/16 21:07; Start 07/01/16 at 15:15; Stop 07/02/16 at 21:44 ; Status DC Nicotine (Nicoderm Cq 21mg) 1 patch DAILY TD Last administered on 08/27/16 08: 33; Start 07/02/16 at 09:00; Stop 08/27/16 at 13:53; Status DC Lorazepam (Ativan) 0.5 mg PRN Q4HRS PRN IV ANXIETY / AGITATION; Start 07/01/16 at 15:15; Stop 07/01/16 at 19:14; Status DC Diphenhydramine HCl (Benadryl) 25 mg PRN Q6HRS PRN IVP ITCHING; Start 07/01/16 at 15:15; Stop 07/01/16 at 19:14; Status DC Haloperidol Lactate (Haldol) 5 mg PRN Q6HRS PRN IM AGITATION; Start 07/01/16 at 15:15; Stop 07/01/16 at 19:14; Status DC Diphenhydramine HCl (Benadryl) 25 mg PRN Q6HRS PRN PO ITCHING Last administered on 07/01/16 20:56; Start 07/01/16 at 18:00 Acetaminophen/ Hydrocodone Bitart (Lortab 5/325) 1 tab PRN BID PRN PO PAIN Last administered on 09/06/16 17:36; Start 07/02/16 at 21:45 Olanzapine (Zyprexa Zydis) 2.5 mg PRN Q2HR PRN PO PSYCHOSIS Last administered on 09/06/16 19:55; Start 07/02/16 at 21:45 Mirtazapine (Remeron) 15 mg QHS PO Last administered on 09/07/16 19:10; Start 07/03/16 at 21:00 Citalopram Hydrobromide (Celexa) 10 mg DAILY PO Last administered on 09/07/16 08:56; Start 07/03/16 at 09:00 Risperidone (Risperdal) 0.25 mg BID PO Last administered on 07/10/16 08:54; Start 07/03/16 at 21:00; Stop 07/10/16 at 15:18; Status DC Docusate Calcium (Surfak) 240 mg DAILY PO Last administered on 09/07/16 08:56 ; Start 07/04/16 at 21:00 Magnesium Hydroxide (Milk Of Magnesia) 2,400 mg PRN QHS PRN PO CONSTIPATION Last administered on 08/30/16 17:06; Start 07/04/16 at 18:15 Trazodone HCl (Desyrel) 50 mg QHS PO Last administered on 07/14/16 20:10; Start 07/05/16 at 21:00; Stop 07/15/16 at 13:52; Status DC Trazodone HCl (Desyrel) 50 mg PRN QHS PRN PO INSOMNIA Last administered on 21:27; Start 07/05/16 at 20:45; Stop 07/15/16 at 13:52; Status DC Hydroxyzine HCl (Atarax) 50 mg PRN Q2HR PRN PO Psychosis Last administered on 16:56; Start 07/06/16 at 04:30 Fentanyl (Duragesic 12mcg/ Hr) 1 patch Q3DAYS TD Last administered on 07:26; Start 07/08/16 at 18:30 Risperidone (Risperdal) 0.25 mg TID PO Last administered on 07/24/16 13:20; Start 07/10/16 at 21:00; Stop 07/24/16 at 18:29; Status DC Buspirone HCl (Buspar) 5 mg TID PO Last administered on 07/13/16 12:28; Start 07/10/16 at 21:00; Stop 07/13/16 at 15:32; Status DC Buspirone HCl (Buspar) 10 mg BID PO Last administered on 07/27/16 09:32; Start 07/13/16 at 21:00; Stop 07/27/16 at 18:29; Status DC Divalproex Sodium (Depakote Sprinkles) 125 mg BID PO Last administered on 07:46; Start 07/13/16 at 21:00; Stop 07/19/16 at 11:49; Status DC Vitamin D (Vitamin D3) 2,000 unit BIDPCLD PO Last administered on 09/07/16 17: 02; Start 07/14/16 at 12:30 Trazodone HCl (Desyrel) 100 mg QHS PO Last administered on 09/07/16 19:10; Start 07/15/16 at 21:00 Trazodone HCl (Desyrel) 100 mg PRN QHS PO ; Start 07/15/16 at 13:45; Stop at 23:01; Status DC Trazodone HCl (Desyrel) 100 mg PRN QHS PRN PO INSOMNIA Last administered on 23:00; Start 07/15/16 at 23:00 Quetiapine Fumarate (SEROquel) 50 mg 1X ONCE PO Last administered on 07/16/16 00:44; Start 07/16/16 at 00:30; Stop 07/16/16 at 00:31; Status DC Temazepam (Restoril) 30 mg PRN QHS PRN PO INSOMNIA Last administered on 19:04; Start 07/16/16 at 18:30; Stop 08/09/16 at 18:24; Status DC Divalproex Sodium (Depakote Sprinkles) 250 mg BID PO Last administered on 12:20; Start 07/19/16 at 21:00; Stop 07/22/16 at 18:23; Status DC Acetaminophen (Tylenol) 650 mg PRN Q6HRS PRN PO PAIN / TEMP Last administered on 08/24/16 13:04; Start 07/22/16 at 15:30 Divalproex Sodium (Depakote Sprinkles) 375 mg BID PO Last administered on 08:58; Start 07/22/16 at 21:00; Stop 08/04/16 at 17:56; Status DC Melatonin 6 mg QHS PO Last administered on 09/07/16 19:11; Start 07/22/16 at 21:00 Risperidone (Risperdal) 0.25 mg QID PO Last administered on 09/07/16 19:10; Start 07/24/16 at 21:00 Lorazepam (Ativan) 1 mg DAILY IM ; Start 07/27/16 at 09:00; Stop 07/27/16 at 09: 00; Status DC Lorazepam (Ativan) 1 mg 14 IM Last administered on 07/28/16 13:47; Start 07/26 at 15:00; Stop 07/29/16 at 14:13; Status DC Haloperidol Lactate (Haldol) 5 mg 1X ONCE IM Last administered on 07/27/16 16 :15; Start 07/27/16 at 16:15; Stop 07/27/16 at 16:16; Status DC Haloperidol Lactate (Haldol) 5 mg 14 IM Last administered on 07/28/16 13:46; Start 07/28/16 at 14:00; Stop 07/29/16 at 14:13; Status DC Buspirone HCl (Buspar) 10 mg TID PO Last administered on 08/04/16 08:58; Start 07/27/16 at 21:00; Stop 08/04/16 at 17:56; Status DC Trazodone HCl (Desyrel) 12.5 mg TIDWMEALS PO Last administered on 08/03/16 11: 58; Start 07/28/16 at 08:00; Stop 08/03/16 at 13:40; Status DC Fosfomycin Tromethamine (Monurol) 3 gm 1X ONCE PO Last administered on 06:27; Start 07/29/16 at 06:30; Stop 07/29/16 at 06:32; Status DC Trazodone HCl (Desyrel) 25 mg TIDWMEALS PO Last administered on 08/06/16 07:54 ; Start 08/03/16 at 17:00; Stop 08/06/16 at 11:24; Status DC Buspirone HCl (Buspar) 10 mg QID PO Last administered on 09/07/16 19:11; Start 08/04/16 at 21:00 Haloperidol Lactate (Haldol) 5 mg AFTRNOON IM Last administered on 08/17/16 13: 36; Start 08/05/16 at 13:15; Stop 08/19/16 at 18:30; Status DC Lorazepam (Ativan) 0.5 mg AFTRNOON IM Last administered on 08/17/16 13:36; Start 08/05/16 at 13:15; Stop 08/19/16 at 18:30; Status DC Oxcarbazepine (Trileptal) 300 mg BID PO Last administered on 08/11/16 09:48; Start 08/06/16 at 21:00; Stop 08/11/16 at 18:43; Status DC Trazodone HCl (Desyrel) 50 mg BID PO Last administered on 09/07/16 19:11; Start 08/06/16 at 21:00 Trazodone HCl (Desyrel) 50 mg 14 PO Last administered on 09/07/16 13:00; Start 08/06/16 at 14:00 Temazepam (Restoril) 15 mg PRN QHS PRN PO INSOMNIA Last administered on 19:55; Start 08/09/16 at 18:30 Oxcarbazepine (Trileptal) 300 mg TID PO Last administered on 09/07/16 19:11; Start 08/11/16 at 21:00 Haloperidol Decanoate (Haldol Decanoate Im Extended Release) 100 mg QMONTH IM Last administered on 08/13/16 21:04; Start 08/13/16 at 21:00 Haloperidol Lactate (Haldol) 5 mg QODAY IM Last administered on 08/30/16 07:45 ; Start 08/20/16 at 13:00; Stop 08/31/16 at 15:28; Status DC Lorazepam (Ativan) 0.5 mg QODAY IM Last administered on 08/30/16 07:44; Start 08/20/16 at 13:00; Stop 08/31/16 at 15:28; Status DC Nicotine (Nicoderm Cq 14mg) 1 patch DAILY TD Last administered on 09/03/16 08: 33; Start 08/28/16 at 09:00; Stop 09/04/16 at 08:59; Status DC Nicotine (Nicoderm Cq 7mg) 1 patch DAILY TD Last administered on 09/07/16 08: 57; Start 09/04/16 at 09:00; Stop 09/11/16 at 08:59 Haloperidol Lactate (Haldol) 5 mg Q3DAYS IM Last administered on 09/02/16 08: 23; Start 09/02/16 at 09:00; Stop 09/04/16 at 18:24; Status DC Lorazepam (Ativan) 0.5 mg Q3DAYS IM Last administered on 09/02/16 08:24; Start 09/02/16 at 09:00; Stop 09/04/16 at 18:24; Status DC Chlorhexidine Gluconate (Peridex) 15 ml BID SWSP Last administered on 19:10; Start 09/03/16 at 21:00 Penicillin V Potassium (Veetid) 500 mg Q6HRS PO ; Start 09/03/16 at 13:00; Stop 09/03/16 at 13:00; Status DC Penicillin V Potassium (Veetid) 500 mg Q6HRS PO Last administered on 09/07/16 17:02; Start 09/03/16 at 13:00 Haloperidol (Haldol) 5 mg Q3DAYS PO Last administered on 09/05/16 07:40; Start 09/05/16 at 09:00 Lorazepam (Ativan) 0.5 mg Q3DAYS PO Last administered on 09/05/16 07:40; Start 09/05/16 at 09:00 Active Scripts Active Lisinopril 20 Mg Tablet 1 Tab PO DAILY NICODERM CQ 21mg (Nicotine) 1 Each Patch.td24 1 Patch TP DAILY Lorazepam 0.5 Mg Tablet 1 Tab PO Q4HRS PRN Hydroxyzine Hcl 25 Mg Tablet 1 Tab PO Q6HRS PRN Benadryl (Diphenhydramine Hcl) 25 Mg Capsule 1 Cap PO Q6HRS CAITLYN BHATT MD September 07, 2016 20:53
[2016-09-08] MEDS: PENICILLIN V K PO SCH ×4 (01:06→17:30)
--- NOTE | 2016-09-08 01:43 | NUR ---
Behavior Intervention Response and Plan: BIRP Note: Behavior: Assumed Care of patient, patient located in Day Room at shift change. Patient exhibited the following behavior Wandering, Calm, Disorganized. Brief assessment on rounds of vital signs, medication needs, lab studies, and pain. Treatment plan problems Dementia W BD, Altered Mental Status, and Fall Risk. Intervention: Patient assessed and the following interventions initiated safety checks 15 Minute Checks Cognitive Assessment , Medications , Nutrition. Response: After interactions and interventions patient responded in the following manner, Wandering , Disorganized ,Compliant. Continue to assess behaviors and condition will continue to monitor throughout the shift as needed. Plan: Continue to monitor Master Treatment Plan for patient's progress toward short term goals of Decreased Agitation, Medication Compliance, emt intermediate goals to return to previous living setting vs placement. Continue to assess patient for changes in above assessment. Monitor for medication needs, pain, and safety concerns. Hourly rounding performed to ensure safe environment.
[2016-09-08 05:37] VITALS: BP 131/79
[2016-09-08] MEDS: CITALOPRAM 10 MG TABLET. PO SCH (08:56)
[2016-09-08] MEDS: busPIRone 10 MG TABLET. PO SCH ×4 (08:56→19:10)
[2016-09-08] MEDS: traZODone 50 MG TABLET. PO SCH ×3 (08:56→19:10)
[2016-09-08] MEDS: DOCUSATE CALCIUM 240 MG CAPSULE PO SCH (08:56)
[2016-09-08] MEDS: risperiDONE 0.25 MG TABLET. PO SCH ×4 (08:56→19:10)
[2016-09-08] MEDS: CHLORHEXIDINE 0.12% 15 ML MOUTHWASH. SWSP SCH ×2 (08:57→19:11)
[2016-09-08] MEDS: NICOTINE 7MG PATCH. TD SCH (08:57)
[2016-09-08] MEDS: HALOPERIDOL 5 MG TABLET PO SCH (09:00)
[2016-09-08] MEDS: LORazepam 0.5 MG TABLET PO SCH (09:01)
[2016-09-08] MEDS: LISINOPRIL 20 MG TABLET PO SCH (09:32)
--- NOTE | 2016-09-08 11:26 | NUR ---
TIA spoke with Jess at [facility] currently working on seeing if able to take pt. Jess will call junior copywriter back with an answer once she has one.
--- NOTE | 2016-09-08 11:27 | NUR ---
TIA called Lucía at [facility] as she had stated they were going to come and screen pt on Wednesday, TIA has not heard anything due to Holiday weekend. TIA left message for Lucía.
--- NOTE | 2016-09-08 12:50 | PN ---
DATE: 09/07/2016 PSYCHIATRIC PROGRESS NOTE This is a late entry 09/07/2016, covers elements not covered in my initial note. SUBJECTIVE: The patient has been wandering, confused, delusional, looking for her money, but redirected, pleasant and dancing in activities, compliant taking her medications whole, which is an improvement. REVIEW OF SYSTEMS: No CV, , eye, ENT or pulmonary system symptoms on review. As I met with her, she held my hand, was taking me to the exit door "let's go." She is quite oblivious of what she was doing. MENTAL STATUS EXAM: Oriented to herself. Insight, judgment, recent and remote memory, attention, concentration, fund of knowledge poor, consistent with her diagnoses mentioned in my initial note. PLAN: Continue the oral Haldol, Ativan every 3 days along with Haldol Decanoate, rest of the psychotropics mentioned in my initial note. CAITLYN BAHTT MD DR: ALICIA/shanon JOB#: [id number] / [id number]
[2016-09-08] MEDS: CHOLECALCIFEROL (VITAMIN D3) 1,000 UNIT TABLET PO SCH ×2 (12:58→17:30)
[2016-09-08] MEDS: hydrOXYzine HCL 25 MG TABLET PO PRN (13:05)
--- NOTE | 2016-09-08 13:07 | PN ---
DATE: 09/06/2016 This is a late entry for 09/06/2016 and covers elements not covered in my initial note. SUBJECTIVE: Per nursing report, the patient has been anxious, restless, but redirects. Some of her morning medications were found on the floor where she presumably threw them and now is being administered medications in ice cream. She has been intrusive, hyperverbal at times, exit seeking, angry, refused to p.r.n. meds. REVIEW OF SYSTEMS: No CV, , pulmonary, eye, ENT system symptoms on review. Reliability poor. MENTAL STATUS EXAM: Oriented to herself. Insight, judgment, recent and remote memory, attention, concentration, fund of knowledge poor, consistent with her diagnosis as mentioned in my initial note. PLAN: Continue current psychotropics, may need to adjust further depending on how she does once the Haldol, Ativan IM have been discontinued. MAN Quinten BHATT MD DR: ALICIA/shanon JOB#: [id number] / [id number]
--- NOTE | 2016-09-08 13:18 | NUR ---
Patient becoming increasingly anxious, pacing the halls and asking where her purse is, PRN zydis and hydroxyzine given, will continue to monitor.
[2016-09-08 13:58] LABS: BASO # 0.1 x10^3/uL (0.0-0.2); BASO % 1 % (0-3); EOS # 0.2 x10^3/uL (0.0-0.7); EOS % 2 % (0-3); HEMOGLOBIN 11.7 g/dL (12.0-15.5); LYMPH # 2.9 x10^3/uL (1.0-4.8); LYMPH % 24 % (24-48); MEAN CORPUSCULAR HEMOGLOBIN 30 pg (25-35); MEAN CORPUSCULAR HGB CONC 34 g/dL (31-37); MEAN CORPUSCULAR VOLUME 88 fL (79-100); MONO % 8 % (0-9); NEUT # 8.1 x10^3uL (1.8-7.7); NEUT % 66 % (31-73); PLATELET COUNT 397 x10^3/uL (140-400); RED BLOOD COUNT 3.98 x10^6/uL (3.50-5.40); RED CELL DISTRIBUTION WIDTH 14.2 % (11.5-14.5); WHITE BLOOD COUNT 12.2 x10^3/uL (4.0-11.0)
--- NOTE | 2016-09-08 14:00 | NUR ---
THERAPEUTIC RECREATION GROUP NOTE TITLE :Sing along with Daria and Alpesh ACTIVITY : Music GOAL : Increase socialization, elevate mood, stimulate memory DURATION : 120 Minutes RESPONSE : Minimal participation. Pt. wandered most of the time but sat with redirection and listened to a few moments of a song or two before leaving. She was confused about leaving and her purse and letters.
[2016-09-08 14:12] LABS: ALBUMIN 3.4 g/dL (3.4-5.0); ALBUMIN/GLOBULIN RATIO 0.9 (1.0-1.7); CREATININE 0.8 mg/dL (0.6-1.0); GFR 70.7; MAGNESIUM 1.9 mg/dL (1.8-2.4); POTASSIUM 3.9 mmol/L (3.5-5.1); TOTAL BILIRUBIN 0.2 mg/dL (0.2-1.0); TOTAL PROTEIN 7.4 g/dL (6.4-8.2)
--- NOTE | 2016-09-08 15:08 | NUR ---
Behavior Intervention Response and Plan: BIRP Note: Behavior: Assumed Care of patient, patient located in Day Room at shift change. Patient exhibited the following behavior Wandering, Exit Seeking, Delusions. Brief assessment on rounds of vital signs, medication needs, lab studies, and pain. Treatment plan problems . Intervention: Patient assessed and the following interventions initiated safety checks 15 Minute Checks Cognitive Assessment , Head to toe Assessment , Medications. Response: After interactions and interventions patient responded in the following manner, Calm , Compliant ,Cooperative. Continue to assess behaviors and condition will continue to monitor throughout the shift as needed. Plan: Continue to monitor Master Treatment Plan for patient's progress toward short term goals of Decreased Agitation, Decreased Anxiety, custodial goals to return to previous living setting vs placement. Continue to assess patient for changes in above assessment. Monitor for medication needs, pain, and safety concerns. Hourly rounding performed to ensure safe environment.
--- NOTE | 2016-09-08 15:29 | NUR ---
Pritesh spoke with Lucía at [facility] pt has been placed. Lucía explained facility unable to do IMS
--- NOTE | 2016-09-08 15:30 | NUR ---
SW spoke with pt family regarding placement, pt daughter in law reports she will sign paperwork and will go decorate her room for her so that it might help with the transition.
--- NOTE | 2016-09-08 15:31 | NUR ---
[facility] Social Work Discharge Planning Form Patient Name HINA HULL Admit Date: 07/01/16 DISCHARGE PLAN Discharge Destination: [facility] Assessment: completed Level II Assessment: Not Needed Transportation: 9:30 am Special Instructions/Notes: DISCHARGE TO FACILITY Facility: [facility] Address: [address] [place] [address] Contact Name: TIA WADE, Other: Jess Psychiatrist/Mental Health Follow Up at facility Primary Care Follow Up at facility
[2016-09-08 15:53] VITALS: BP 153/84
[2016-09-08] MEDS: traZODone 100 MG TABLET. PO SCH (19:09)
[2016-09-08] MEDS: MELATONIN 3 MG TABLET PO SCH (19:09)
[2016-09-08] MEDS: traZODone 100 MG TABLET. PO PRN (19:09)
[2016-09-08] MEDS: MIRTAZAPINE 15 MG TABLET PO SCH (19:10)
--- NOTE | 2016-09-08 21:09 | PDOC ---
Exam Yaya Demential Exam: Yaya Note: Please also refer to the separate dictated note~for this date of service dictated separately.~Patient seen individually. Discussed the patient with Nursing staff reviewed the chart.~Reviewed interim history and current functioning. Reviewed vital signs,~Labs/ Radiology~and current medications noted below. Continue current treatment with the changes noted in the dictated addendum note Assessment: Vital Signs: Vital Signs Date Time Temp Pulse Resp B/P (MAP) Pulse Ox O2 Delivery O2 Flow Rate FiO2 09/08/16 15:53 97.0 80 18 153/84 (107) 98 09/06/16 16:13 Room Air I&O Intake and Output 09/08/16 07:00 Intake Total 840 ml Balance 840 ml Intake Oral 840 ml # Bowel Movements 1 Labs: Laboratory Tests Test 09/08/16 13:50 White Blood Count 12.2 x10^3/uL (4.0-11.0) H Red Blood Count 3.98 x10^6/uL (3.50-5.40) Hemoglobin 11.7 g/dL (12.0-15.5) L Hematocrit 35.0 % (36.0-47.0) L Mean Corpuscular Volume 88 fL (79-100) Mean Corpuscular Hemoglobin 30 pg (25-35) Mean Corpuscular Hemoglobin Concent 34 g/dL (31-37) Red Cell Distribution Width 14.2 % (11.5-14.5) Platelet Count 397 x10^3/uL (140-400) Neutrophils (%) (Auto) 66 % (31-73) Lymphocytes (%) (Auto) 24 % (24-48) Monocytes (%) (Auto) 8 % (0-9) Eosinophils (%) (Auto) 2 % (0-3) Basophils (%) (Auto) 1 % (0-3) Neutrophils # (Auto) 8.1 x10^3uL (1.8-7.7) H Lymphocytes # (Auto) 2.9 x10^3/uL (1.0-4.8) Monocytes # (Auto) 1.0 x10^3/uL (0.0-1.1) Eosinophils # (Auto) 0.2 x10^3/uL (0.0-0.7) Basophils # (Auto) 0.1 x10^3/uL (0.0-0.2) Sodium Level 143 mmol/L (136-145) Potassium Level 3.9 mmol/L (3.5-5.1) Chloride Level 105 mmol/L (98-107) Carbon Dioxide Level 29 mmol/L (21-32) Anion Gap 9 (6-14) Blood Urea Nitrogen 17 mg/dL (7-20) Creatinine 0.8 mg/dL (0.6-1.0) Estimated GFR (Cockcroft-Gault) 70.7 BUN/Creatinine Ratio 21 (6-20) H Glucose Level 141 mg/dL (70-99) H Calcium Level 9.0 mg/dL (8.5-10.1) Magnesium Level 1.9 mg/dL (1.8-2.4) Total Bilirubin 0.2 mg/dL (0.2-1.0) Aspartate Amino Transferase (AST) 17 U/L (15-37) Alanine Aminotransferase (ALT) 27 U/L (14-59) Alkaline Phosphatase 109 U/L (46-116) Total Protein 7.4 g/dL (6.4-8.2) Albumin 3.4 g/dL (3.4-5.0) Albumin/Globulin Ratio 0.9 (1.0-1.7) L Current Medications: Meds: Current Medications Diphenhydramine HCl (Benadryl) 25 mg Q6HRS PO ; Start 07/01/16 at 18:00; Stop at 18:00; Status DC Hydroxyzine HCl (Atarax) 25 mg PRN Q6HRS PRN PO ITCHING Last administered on 01:19; Start 07/01/16 at 15:15; Stop 07/06/16 at 04:21; Status DC Lisinopril (Prinivil) 20 mg DAILY PO Last administered on 09/08/16 09:32; Start 07/02/16 at 09:00 Lorazepam (Ativan) 0.5 mg PRN Q4HRS PRN PO ANXIETY / AGITATION Last administered on 07/02/16 21:07; Start 07/01/16 at 15:15; Stop 07/02/16 at 21:44 ; Status DC Nicotine (Nicoderm Cq 21mg) 1 patch DAILY TD Last administered on 08/27/16 08: 33; Start 07/02/16 at 09:00; Stop 08/27/16 at 13:53; Status DC Lorazepam (Ativan) 0.5 mg PRN Q4HRS PRN IV ANXIETY / AGITATION; Start 07/01/16 at 15:15; Stop 07/01/16 at 19:14; Status DC Diphenhydramine HCl (Benadryl) 25 mg PRN Q6HRS PRN IVP ITCHING; Start 07/01/16 at 15:15; Stop 07/01/16 at 19:14; Status DC Haloperidol Lactate (Haldol) 5 mg PRN Q6HRS PRN IM AGITATION; Start 07/01/16 at 15:15; Stop 07/01/16 at 19:14; Status DC Diphenhydramine HCl (Benadryl) 25 mg PRN Q6HRS PRN PO ITCHING Last administered on 07/01/16 20:56; Start 07/01/16 at 18:00 Acetaminophen/ Hydrocodone Bitart (Lortab 5/325) 1 tab PRN BID PRN PO PAIN Last administered on 09/06/16 17:36; Start 07/02/16 at 21:45 Olanzapine (Zyprexa Zydis) 2.5 mg PRN Q2HR PRN PO PSYCHOSIS Last administered on 09/08/16 13:05; Start 07/02/16 at 21:45 Mirtazapine (Remeron) 15 mg QHS PO Last administered on 09/08/16 19:10; Start 07/03/16 at 21:00 Citalopram Hydrobromide (Celexa) 10 mg DAILY PO Last administered on 09/08/16 08:56; Start 07/03/16 at 09:00 Risperidone (Risperdal) 0.25 mg BID PO Last administered on 07/10/16 08:54; Start 07/03/16 at 21:00; Stop 07/10/16 at 15:18; Status DC Docusate Calcium (Surfak) 240 mg DAILY PO Last administered on 09/08/16 08:56 ; Start 07/04/16 at 21:00 Magnesium Hydroxide (Milk Of Magnesia) 2,400 mg PRN QHS PRN PO CONSTIPATION Last administered on 08/30/16 17:06; Start 07/04/16 at 18:15 Trazodone HCl (Desyrel) 50 mg QHS PO Last administered on 07/14/16 20:10; Start 07/05/16 at 21:00; Stop 07/15/16 at 13:52; Status DC Trazodone HCl (Desyrel) 50 mg PRN QHS PRN PO INSOMNIA Last administered on 21:27; Start 07/05/16 at 20:45; Stop 07/15/16 at 13:52; Status DC Hydroxyzine HCl (Atarax) 50 mg PRN Q2HR PRN PO Psychosis Last administered on 13:05; Start 07/06/16 at 04:30 Fentanyl (Duragesic 12mcg/ Hr) 1 patch Q3DAYS TD Last administered on 07:26; Start 07/08/16 at 18:30 Risperidone (Risperdal) 0.25 mg TID PO Last administered on 07/24/16 13:20; Start 07/10/16 at 21:00; Stop 07/24/16 at 18:29; Status DC Buspirone HCl (Buspar) 5 mg TID PO Last administered on 07/13/16 12:28; Start 07/10/16 at 21:00; Stop 07/13/16 at 15:32; Status DC Buspirone HCl (Buspar) 10 mg BID PO Last administered on 07/27/16 09:32; Start 07/13/16 at 21:00; Stop 07/27/16 at 18:29; Status DC Divalproex Sodium (Depakote Sprinkles) 125 mg BID PO Last administered on 07:46; Start 07/13/16 at 21:00; Stop 07/19/16 at 11:49; Status DC Vitamin D (Vitamin D3) 2,000 unit BIDPCLD PO Last administered on 09/08/16 17: 30; Start 07/14/16 at 12:30 Trazodone HCl (Desyrel) 100 mg QHS PO Last administered on 09/08/16 19:09; Start 07/15/16 at 21:00 Trazodone HCl (Desyrel) 100 mg PRN QHS PO ; Start 07/15/16 at 13:45; Stop at 23:01; Status DC Trazodone HCl (Desyrel) 100 mg PRN QHS PRN PO INSOMNIA Last administered on 19:09; Start 07/15/16 at 23:00 Quetiapine Fumarate (SEROquel) 50 mg 1X ONCE PO Last administered on 07/16/16 00:44; Start 07/16/16 at 00:30; Stop 07/16/16 at 00:31; Status DC Temazepam (Restoril) 30 mg PRN QHS PRN PO INSOMNIA Last administered on 19:04; Start 07/16/16 at 18:30; Stop 08/09/16 at 18:24; Status DC Divalproex Sodium (Depakote Sprinkles) 250 mg BID PO Last administered on 12:20; Start 07/19/16 at 21:00; Stop 07/22/16 at 18:23; Status DC Acetaminophen (Tylenol) 650 mg PRN Q6HRS PRN PO PAIN / TEMP Last administered on 08/24/16 13:04; Start 07/22/16 at 15:30 Divalproex Sodium (Depakote Sprinkles) 375 mg BID PO Last administered on 08:58; Start 07/22/16 at 21:00; Stop 08/04/16 at 17:56; Status DC Melatonin 6 mg QHS PO Last administered on 09/08/16 19:09; Start 07/22/16 at 21:00 Risperidone (Risperdal) 0.25 mg QID PO Last administered on 09/08/16 19:10; Start 07/24/16 at 21:00 Lorazepam (Ativan) 1 mg DAILY IM ; Start 07/27/16 at 09:00; Stop 07/27/16 at 09: 00; Status DC Lorazepam (Ativan) 1 mg 14 IM Last administered on 07/28/16 13:47; Start 07/26 at 15:00; Stop 07/29/16 at 14:13; Status DC Haloperidol Lactate (Haldol) 5 mg 1X ONCE IM Last administered on 07/27/16 16 :15; Start 07/27/16 at 16:15; Stop 07/27/16 at 16:16; Status DC Haloperidol Lactate (Haldol) 5 mg 14 IM Last administered on 07/28/16 13:46; Start 07/28/16 at 14:00; Stop 07/29/16 at 14:13; Status DC Buspirone HCl (Buspar) 10 mg TID PO Last administered on 08/04/16 08:58; Start 07/27/16 at 21:00; Stop 08/04/16 at 17:56; Status DC Trazodone HCl (Desyrel) 12.5 mg TIDWMEALS PO Last administered on 08/03/16 11: 58; Start 07/28/16 at 08:00; Stop 08/03/16 at 13:40; Status DC Fosfomycin Tromethamine (Monurol) 3 gm 1X ONCE PO Last administered on 06:27; Start 07/29/16 at 06:30; Stop 07/29/16 at 06:32; Status DC Trazodone HCl (Desyrel) 25 mg TIDWMEALS PO Last administered on 08/06/16 07:54 ; Start 08/03/16 at 17:00; Stop 08/06/16 at 11:24; Status DC Buspirone HCl (Buspar) 10 mg QID PO Last administered on 09/08/16 19:10; Start 08/04/16 at 21:00 Haloperidol Lactate (Haldol) 5 mg AFTRNOON IM Last administered on 08/17/16 13: 36; Start 08/05/16 at 13:15; Stop 08/19/16 at 18:30; Status DC Lorazepam (Ativan) 0.5 mg AFTRNOON IM Last administered on 08/17/16 13:36; Start 08/05/16 at 13:15; Stop 08/19/16 at 18:30; Status DC Oxcarbazepine (Trileptal) 300 mg BID PO Last administered on 08/11/16 09:48; Start 08/06/16 at 21:00; Stop 08/11/16 at 18:43; Status DC Trazodone HCl (Desyrel) 50 mg BID PO Last administered on 09/08/16 19:10; Start 08/06/16 at 21:00 Trazodone HCl (Desyrel) 50 mg 14 PO Last administered on 09/08/16 12:59; Start 08/06/16 at 14:00 Temazepam (Restoril) 15 mg PRN QHS PRN PO INSOMNIA Last administered on 19:55; Start 08/09/16 at 18:30 Oxcarbazepine (Trileptal) 300 mg TID PO Last administered on 09/08/16 19:10; Start 08/11/16 at 21:00 Haloperidol Decanoate (Haldol Decanoate Im Extended Release) 100 mg QMONTH IM Last administered on 08/13/16 21:04; Start 08/13/16 at 21:00 Haloperidol Lactate (Haldol) 5 mg QODAY IM Last administered on 08/30/16 07:45 ; Start 08/20/16 at 13:00; Stop 08/31/16 at 15:28; Status DC Lorazepam (Ativan) 0.5 mg QODAY IM Last administered on 08/30/16 07:44; Start 08/20/16 at 13:00; Stop 08/31/16 at 15:28; Status DC Nicotine (Nicoderm Cq 14mg) 1 patch DAILY TD Last administered on 09/03/16 08: 33; Start 08/28/16 at 09:00; Stop 09/04/16 at 08:59; Status DC Nicotine (Nicoderm Cq 7mg) 1 patch DAILY TD Last administered on 09/08/16 08: 57; Start 09/04/16 at 09:00; Stop 09/11/16 at 08:59 Haloperidol Lactate (Haldol) 5 mg Q3DAYS IM Last administered on 09/02/16 08: 23; Start 09/02/16 at 09:00; Stop 09/04/16 at 18:24; Status DC Lorazepam (Ativan) 0.5 mg Q3DAYS IM Last administered on 09/02/16 08:24; Start 09/02/16 at 09:00; Stop 09/04/16 at 18:24; Status DC Chlorhexidine Gluconate (Peridex) 15 ml BID SWSP Last administered on 19:11; Start 09/03/16 at 21:00 Penicillin V Potassium (Veetid) 500 mg Q6HRS PO ; Start 09/03/16 at 13:00; Stop 09/03/16 at 13:00; Status DC Penicillin V Potassium (Veetid) 500 mg Q6HRS PO Last administered on 09/08/16 17:30; Start 09/03/16 at 13:00 Haloperidol (Haldol) 5 mg Q3DAYS PO Last administered on 09/08/16 09:00; Start 09/05/16 at 09:00 Lorazepam (Ativan) 0.5 mg Q3DAYS PO Last administered on 09/08/16 09:01; Start 09/05/16 at 09:00 Active Scripts Active Lisinopril 20 Mg Tablet 1 Tab PO DAILY NICODERM CQ 21mg (Nicotine) 1 Each Patch.td24 1 Patch TP DAILY Lorazepam 0.5 Mg Tablet 1 Tab PO Q4HRS PRN Hydroxyzine Hcl 25 Mg Tablet 1 Tab PO Q6HRS PRN Benadryl (Diphenhydramine Hcl) 25 Mg Capsule 1 Cap PO Q6HRS CAITLYN BHATT MD September 08, 2016 21:09
--- NOTE | 2016-09-08 23:19 | NUR ---
Behavior Intervention Response and Plan: BIRP Note: Behavior: Assumed Care of patient, patient located in Hallway at shift change. Patient exhibited the following behavior Wandering, Exit Seeking, Disorganized. Brief assessment on rounds of vital signs, medication needs, lab studies, and pain. Treatment plan problems Dementia W BD, Altered Mental Status, and Fall Risk. Intervention: Patient assessed and the following interventions initiated safety checks 15 Minute Checks Cognitive Assessment , Medications , Nutrition. Response: After interactions and interventions patient responded in the following manner, Restless , Disorganized ,Cooperative. Continue to assess behaviors and condition will continue to monitor throughout the shift as needed. Plan: Continue to monitor Master Treatment Plan for patient's progress toward short term goals of Decreased Agitation, Medication Compliance, correction goals to return to previous living setting vs placement. Continue to assess patient for changes in above assessment. Monitor for medication needs, pain, and safety concerns. Hourly rounding performed to ensure safe environment.
[2016-09-09] MEDS ORDERED: ACET325T9 PO (00:06)
[2016-09-09] MEDS ORDERED: CHOL10003 PO (00:07)
[2016-09-09] MEDS ORDERED: CHLO15MO2 SWSP (00:07)
[2016-09-09] MEDS ORDERED: CITA10TA4 PO (00:08)
[2016-09-09] MEDS ORDERED: HALO5TAB PO (00:08)
[2016-09-09] MEDS ORDERED: DOCU240C13 PO (00:08)
[2016-09-09] MEDS ORDERED: HYDR-2758 PO (00:09)
[2016-09-09] MEDS ORDERED: HALO100A2 IM (00:09)
[2016-09-09] MEDS ORDERED: LORA0.5T PO (00:10)
[2016-09-09] MEDS ORDERED: LISI-334 PO (00:10)
[2016-09-09] MEDS ORDERED: MELA3TAB2 PO (00:12)
[2016-09-09] MEDS ORDERED: MAGN2400 PO (00:12)
[2016-09-09] MEDS ORDERED: MIRT15TA3 PO (00:12)
[2016-09-09] MEDS ORDERED: NICO1PAT27 TD (00:14)
[2016-09-09] MEDS ORDERED: OLAN5TAB5 PO (00:14)
[2016-09-09] MEDS ORDERED: PENI500T PO (00:15)
[2016-09-09] MEDS ORDERED: TEMA15CA PO (00:15)
[2016-09-09] MEDS ORDERED: BUSP10TA PO (00:16)
[2016-09-09] MEDS ORDERED: FENT-73 TP (00:17)
[2016-09-09] MEDS ORDERED: DIPH25CA58 PO (00:17)
[2016-09-09] MEDS ORDERED: HYDR25TA PO (00:18)
[2016-09-09] MEDS ORDERED: RISP0.2519 PO (00:18)
[2016-09-09] MEDS ORDERED: TRAZ-90 PO ×2 (00:19→00:20)
[2016-09-09] MEDS ORDERED: TRAZ50TA15 PO ×2 (00:21)
[2016-09-09] MEDS: PENICILLIN V K PO SCH ×2 (00:43→05:38)
[2016-09-09 04:49] VITALS: BP 149/57
[2016-09-09] MEDS: busPIRone 10 MG TABLET. PO SCH (07:53)
[2016-09-09] MEDS: CHLORHEXIDINE 0.12% 15 ML MOUTHWASH. SWSP SCH (07:53)
[2016-09-09] MEDS: risperiDONE 0.25 MG TABLET. PO SCH (07:54)
[2016-09-09] MEDS: DOCUSATE CALCIUM 240 MG CAPSULE PO SCH (07:54)
[2016-09-09 07:55] VITALS: BP 149/57
[2016-09-09] MEDS: LISINOPRIL 20 MG TABLET PO SCH (07:55)
[2016-09-09] MEDS: CITALOPRAM 10 MG TABLET. PO SCH (07:55)
[2016-09-09] MEDS: traZODone 50 MG TABLET. PO SCH (07:55)
[2016-09-09] MEDS: NICOTINE 7MG PATCH. TD SCH (07:58)
[2016-09-09] MEDS: fentaNYL 12MCG/HR 1 PATCH PATCH TD SCH (08:07)
--- NOTE | 2016-09-09 09:00 | NUR ---
Behavior Intervention Response and Plan: BIRP Note: Behavior: Assumed Care of patient, patient located in Hallway at shift change. Patient exhibited the following behavior Wandering, Interactive, Disorganized. Brief assessment on rounds of vital signs, medication needs, lab studies, and pain. Treatment plan problems . Intervention: Patient assessed and the following interventions initiated safety checks 15 Minute Checks Medications , Nutrition , ADL's. Response: After interactions and interventions patient responded in the following manner, Wandering , Disorganized ,Compliant. Continue to assess behaviors and condition will continue to monitor throughout the shift as needed. 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 Continue to assess patient for changes in above assessment. Monitor for medication needs, pain, and safety concerns. Hourly rounding performed to ensure safe environment.
--- NOTE | 2016-09-09 09:15 | NUR ---
Pt wandering up and down hallway. Pt looking for her purse. Redirected numerous times without success. PRJason Ryder given at this time. Will continue to monitor and report.
[2016-09-09] MEDS ORDERED: OXCA300T3 PO (09:17)
--- NOTE | 2016-09-09 09:31 | NUR ---
Discharge Note [facility] Follow up Appointment made: YES Tobacco Hotline called with patient prior to discharge, --REFUSED Tobacco cessation medication listed with current medications for discharge. Date and Time instructions and Social work discharge planning sheet sent to next level of care: YES Follow up Appointment made: YES [facility] Unit contact Number for 24 hour support [phone] Discharge Packet Sent, and discusssed with patient and caregiver that includes Copies from the record of current medications with indications and frequencies, history and physical, Psychiatric Eval, Lab values, Radiology results , follow up instructions for continuation of care, and Social work discharge planning sheet to: [facility] Discharge Packet Faxed to Provider/Next Level of Care: YES Discharge Packet Faxed to: [facility] Discharge Packet Discussed with: JOSE CARLOS Any Pending lab results can be obtained by calling [phone] Discharge Summary will be sent to next care provider when available. This includes the reason for admission, DC diagnosis, and next level of care recommendations. Addendum: 09/09/16 at 1006 by ALVAREZ BLANCO RN Discharge Note [facility] Follow up Appointment made: YES Tobacco Hotline called with patient prior to discharge, --REFUSED Tobacco cessation medication listed with current medications for discharge. Date and Time instructions and Social work discharge planning sheet sent to next level of care: 09/09/16 0945 Follow up Appointment made: YES [facility] Unit contact Number for 24 hour support [phone] Discharge Packet Sent, and discusssed with patient and caregiver that includes Copies from the record of current medications with indications and frequencies, history and physical, Psychiatric Eval, Lab values, Radiology results , follow up instructions for continuation of care, and Social work discharge planning sheet to: [facility] Discharge Packet Faxed to Provider/Next Level of Care: YES Discharge Packet Faxed to: [facility] Discharge Packet Discussed with: JOSE CARLOS Any Pending lab results can be obtained by calling [phone] Discharge Summary will be sent to next care provider when available. This includes the reason for admission, DC diagnosis, and next level of care recommendations.
--- NOTE | 2016-09-09 10:15 | NUR ---
Placed call to [facility]. Spoke to Traci SWANN, gave a detailed verbal report.
--- NOTE | 2016-09-10 07:54 | PN ---
DATE: 09/08/2016 PSYCHIATRIC PROGRESS NOTE This is a late entry of 09/08/2016, covers elements not covered in my initial note. The patient remains confused, had a good mood in the morning, took her medications whole, but by the afternoon she was a little more agitated, received hydroxyzine and Zyprexa p.r.n., then did better the rest of the afternoon and evening. REVIEW OF SYSTEMS: No CV, , pulmonary, eye, ENT system symptoms on review. Reliability poor. MENTAL STATUS EXAM: Oriented to herself. Insight, judgment, recent and remote memory, attention, concentration, fund of knowledge poor, consistent with her diagnosis. This note covers elements not covered in my initial note. DIAGNOSIS: Mentioned in my initial note. PLAN: Continue psychotropics mentioned in my initial note. MAN Quinten BHATT MD DR: ALICIA/shanon JOB#: [id number] / [id number]
--- NOTE | 2016-09-11 18:11 | DS ---
DATE OF DISCHARGE: 09/09/2016 DISCHARGE SUMMARY/PSYCHIATRIC PROGRESS NOTE This is a late entry for date of service 09/09/2016 and covers elements not covered in my initial note. REASON FOR ADMISSION: Please refer to the admission history for details. Briefly, the patient is a 70-year-old female who was admitted from [address] [place] [address] after she was admitted to the medical surgical floor from home on account of increasing confusion, agitation, aggression, psychosis, memory deficits behaviors that were deemed dangerous and out of control. On , she was refusing medications and cares, refusing food, pulled out her IV was restless, combative, psychotic, and extremely confused. She was medically stabilized and referred to us for inpatient psychiatric stabilization. SIGNIFICANT FINDINGS AND CLINICAL COURSE: The patient had a very complicated course and had marked resistance to treatment on multiple psychotropic medications that were attempted to control her behaviors. She was initially extremely agitated and aggressive had to be from the entire unit for banging on doors, kicking, hitting, screaming amongst other things. She was floridly psychotic and confused. I met with her daily individually, Dr. Hauser/Dr. Groves followed her medically. Adjustments were made in her psychotropics gradually and on multiple occasions very carefully considering risk-benefit ratio and she seemed to respond to a combination of hydroxyzine 50 mg q.2 hours p.r.n., agitation, anxiety, Benadryl p.r.n., Celexa 10 mg a day, Remeron 15 mg at bedtime, Zyprexa Zydis p.r.n., trazodone p.r.n., Risperdal oral 0.25 mg four times a day, BuSpar 10 mg 4 times a day, Restoril 15 mg at bedtime p.r.n., melatonin 6 mg at bedtime, scheduled trazodone 50 mg b.i.d., Haldol oral 5 mg every three days, Ativan 0.5 mg every 3 days. Trileptal 300 mg 3 times a day and Haldol Decanoate due to noncompliance with oral psychotropics initially. Prior to discharge on 09/09/2016, she remains confused, but was not agitated, aggressive, psychotic symptoms had significantly subsided and she was not deemed a danger to herself or others. At the time of discharge, the patient was on 2 antipsychotics, Haldol and Risperdal. Depending on her clinical progress, I would recommend that oral Haldol that she receives 5 mg every 3 days be discontinued in about 3-4 weeks. While she continues on the oral Risperdal and Haldol Decanoate thereafter for another month and then if she is still doing well, the Haldol Decanoate could be discontinued and the oral Risperdal continued. This taper would reduce her antipsychotics to a single antipsychotic and risk-benefit ratio would indicate this should be done if clinically appropriate prior to discharge on 09/09/2016. REVIEW OF SYSTEMS: No CV, , pulmonary, eye, ENT system symptoms on review. Reliability poor. MENTAL STATUS EXAM: Oriented to herself. Insight, judgment, recent and remote memory, attention, concentration, fund of knowledge poor, consistent with her diagnosis. FINAL DIAGNOSES: Major neurocognitive disorder, Alzheimer, vascular with depression, delusion, behavioral disturbance; anxiety disorder, unspecified; impulse control disorder, unspecified. Rest diagnoses unchanged from admission. DISCHARGE MEDICATIONS: Please refer to the [facility]. DISCHARGE INSTRUCTIONS: Outpatient psychiatric and medical followup at the retirement. Time for discharge day management greater than 30 minutes. CAITLYN BHATT MD DR: ALICIA/shanon JOB#: [id number] / [id number]
== END 2016-09-09 09:35 | DRG 884 ==
LOC: GEROPSY 14:20
PROVIDERS: ADMIT Psychiatry & Neurology Psychiatry; ATTEND Psychiatry & Neurology Psychiatry
DX: F01.51 Vascular dementia, unspecified severity, with behavioral disturbance (principal); F02.81 Dementia in other diseases classified elsewhere, unspecified severity, with behavioral disturbance; E87.0 Hyperosmolality and hypernatremia; J98.11 Atelectasis; G30.9 Alzheimer's disease, unspecified; E87.6 Hypokalemia; E86.0 Dehydration; I10 Essential (primary) hypertension; F17.200 Nicotine dependence, unspecified, uncomplicated; F22 Delusional disorders; F32.9 Major depressive disorder, single episode, unspecified; F41.9 Anxiety disorder, unspecified; F63.9 Impulse disorder, unspecified; K04.7 Periapical abscess without sinus; G47.00 Insomnia, unspecified; K59.00 Constipation, unspecified; M11.20 Other chondrocalcinosis, unspecified site; Z91.14 Patient's other noncompliance with medication regimen; Z98.1 Arthrodesis status
CPT/HCPCS: 36415; 74000; 76700; 80048; 80053; 80061; 80164; 81001; 82306; 82607; 83036; 83735; 85007; 85027; 87086; 99406; J1630; J1631; J2060; Q0163